=== PATIENT | female | born 1950 | race American Indian/Alaskan Native ===

== ENCOUNTER 2018-09-03 08:04 | Day surgery (SDC) | payer MEDICARE, OTHER ==
[2018-08-28 18:02] VITALS: BMI 21.4
[~2018-09-03 08:04] MED LIST: BUPIVACAINE (PF) 0.75% 5 ML, HYALURONIDASE, HUMAN RECOMB 150 UNIT, LIDOCAINE 2% (PF) 10... MISCELLANE ONE; LACTATED RINGERS 1,000 ML IV SCH; LIDOCAINE 1% 20 ML VIAL (10MG/ML) FOR IV START INTRADERMA PRN; TOBRA-DEXAMET 0.3-0.1% OPHTH OINT 3.5 GM TUBE OPHTHALMIC ONE
[2018-09-03] MEDS: CYCLOPENTOLATE 1% OPHTH SOLN 2 ML BTL OP ONE ×3 (08:56→09:14)
[2018-09-03] MEDS: KETOROLAC 0.5% OPHTH DROPS 5 ML BTL OP ONE ×4 (08:58→09:16)
[2018-09-03] MEDS: PHENYLEPHRINE 10% OPHTH DROPS 5 ML BTL OP ONE ×3 (09:00→09:18)
[2018-09-03 09:02] VITALS: RESP 16; TEMP 97.3
[2018-09-03] MEDS ORDERED: PROPOFOL 10 MG/ML 20 ML VIAL IV ONE (09:57)
[2018-09-03] MEDS ORDERED: BALANCED SALT IRRIG SOLN COMB2 15 ML IRRIG.SOLN INTRAOCULA ONE (10:11)
[2018-09-03] MEDS ORDERED: HYALURONATE SODIUM INTRAOCULAR 1 EACH SYRINGE (10MG/ML) INTRAOCULA ONE (10:11)
[2018-09-03] MEDS ORDERED: TRYPAN BLUE 0.06% SYRINGE 0.5 ML SYRINGE INTRAOCULA ONE (10:11)
[2018-09-03] MEDS ORDERED: EPINEPHrine (PF) 0.5 ML in BALANCED SALT IRRIG SOLN COMB2 500 ML IRRIGATION ONE (10:16)
--- NOTE | 2018-09-03 10:26 | P.OP ---
Date of Procedure: 09/03/18 Procedure(s) Performed: PREOPERATIVE DIAGNOSIS: Hypermature cataract, left eye. POSTOPERATIVE DIAGNOSIS: Hypermature cataract, left eye. OPERATION: Phacoemulsification of cataract, intraocular lens placement, left eye. DESCRIPTION OF PROCEDURE: The patient was taken to the operating room. Intravenous Propofol was given so as to bring about sedation. The following mixture was given for local anesthesia: 5 mL of 2% lidocaine, 5 mL of 0.75% Marcaine, and 1 mL of Wydase. Approximately 4 mL was injected in the retrobulbar space of the surgical eye. Additional 1 mL was then directed to the temporal area of the surgical eye. This was performed to allow adequate neurological block of the facial muscles. The patient was revived. The patient was prepped and draped in the usual sterile manner for the operative eye. A lid speculum was put into position. The conjunctiva was resected back from the limbus in the 12 o'clock position. Bleeding was controlled with electrocautery. A #69 blade was then used and a half-thickness scleral incision approximately 1-mm posterior to the limbus was made on bare sclera. This was shelved in the clear cornea using a crescent knife. Next a 15-degree blade was used to make a stab incision at the 3 o'clock position at the corneolimbal interface. A keratome blade was then used and the superior wound was extended into the anterior chamber. An air bubble was injected into the anterior chamber thru the sideport incision. Trypan Blue dye was then dripped on to the anterior lens capsule in order to visualize it. Viscoelastic was injected into the anterior chamber to maintain its form. A cystotome was used and a continuous anterior capsulotomy was made. Hydrodissection of the lens cortex using a blunt cannula and BSS was performed. A phaco probe was then introduced and a groove extending from 12 to 6 o'clock in the lens was created. A Terry wand was used through the stab incision and used to perform a divide and conquer dismantling of the cataract. An irrigation aspiration probe was utilized and any residual cortex was removed from the eye. Again, viscoelastic was injected into the anterior chamber. An [] posterior chamber lens implant was placed in a delivery cartridge and injected into the anterior chamber. A Sinskey hook was utilized to spin the lens into position within the capsular bag. The irrigation and aspiration probe was again introduced and any residual viscoelastic was removed from the eye. BSS was injected via blunt canula into the limbal stab incision and the anterior chamber was re-inflated. The conjunctiva was reapproximated using electrocautery. One drop of 0.25% Timoptic was placed over the corneal along with an antibiotic ophthalmic ointment. Two sterile patches and a Maguire eye shield were taped into position. The patient was transported to the recovery room in stable condition. Pathology: none sent Condition: stable Disposition: same day
[2018-09-03 10:53] VITALS: BP 139/84; PULSE 78
[2018-09-03] MEDS ORDERED: GENTAMICIN/PREDNISOL AC OPHTH OINT 3.5GM OPHTHALMIC ONE (23:00)
[2018-09-03] MEDS ORDERED: TIMOLOL 0.5% OPHTH DROPS 5 ML BTL OP ONE (23:00)
== END 2018-09-03 10:59 | disposition home or self-care (01) ==
LOC: OR 08:04
PROVIDERS: ATTEND Ophthalmology
DX: H25.22 Age-related cataract, morgagnian type, left eye (principal); I10 Essential (primary) hypertension; J44.9 Chronic obstructive pulmonary disease, unspecified; F17.210 Nicotine dependence, cigarettes, uncomplicated; Z79.82 Long term (current) use of aspirin; Z79.899 Other long term (current) drug therapy
CPT/HCPCS: 66984; V2632; J3470; J2001; J0171; J2704

== ENCOUNTER → 2019-01-14 | Outpatient (CLI) | payer MEDICARE, OTHER ==
--- NOTE | 2019-01-14 23:58 | MR ---
EXAMINATION TYPE: MR foot LT wo/w con DATE OF EXAM: 01/14/2019 COMPARISON: None HISTORY: Left foot lump on ant/mid foot CONTRAST: Standard multiplanar, multisequence MRI departmental protocol utilizing 6.5 mL intravenous Gadavist g adolinium contrast. FINDINGS: There is an elongated subcutaneous mass at the anterior aspect of the midfoot. This measure s 2.8 x 0.9X 3.0 cm. The mass has signal equal to subcutaneous fat. Mass appears superficial to the e xtensor tendons of the foot. The metatarsals are intact without evidence of a fracture. There is subcutaneous edema in the forefoo t around the distal metatarsals. Contrast images show no pathologic enhancement. The medial and lateral flexor tendons of the foot appear intact. Tarsal bones appear intact. Joint sp aces are fairly normal. Plantar fascia appears intact. IMPRESSION: Sharply marginated oval shaped subcutaneous mass over the anterior mid foot has features of a lipoma. Mild subcutaneous edema over the forefoot. No fracture seen.
== END | disposition home or self-care (01) ==
LOC: RADMRIMAIN 08:04
PROVIDERS: ATTEND Podiatrist Foot & Ankle Surgery
DX: M79.9 Soft tissue disorder, unspecified (principal)
CPT/HCPCS: 73720; A9585

== ENCOUNTER → 2020-08-25 | Outpatient (CLI) | payer MEDICARE, OTHER ==
--- NOTE | 2020-08-26 10:10 | MM ---
Reason for exam: screening (asymptomatic). Last mammogram was performed 1 year and 3 months ago. History: Patient is postmenopausal. Physical Findings: A clinical breast exam by your physician is recommended on an annual basis and results should be correlated with mammographic findings. MG Screening Mammo w CAD Bilateral CC and MLO view(s) were taken. Prior study comparison: May 27, 2019, mammogram, performed at [facility]. March 15, 2015, mammogram, performed at [facility]. The breast tissue is heterogeneously dense. This may lower the sensitivity of mammography. Nodule upper outer right breast zone B. ASSESSMENT: Incomplete: need additional imaging evaluation, BI-RAD 0 RECOMMENDATION: Special view mammogram and ultrasound of the right breast. [facility] will attempt to contact patient to return for supplemental views and ultrasound.
== END | disposition home or self-care (01) ==
LOC: RADMAMWWP 07:51
PROVIDERS: ATTEND Internal Medicine
DX: Z12.31 Encounter for screening mammogram for malignant neoplasm of breast (principal); Z78.0 Asymptomatic menopausal state
CPT/HCPCS: 77067

== ENCOUNTER → 2020-09-08 | Outpatient (CLI) | payer MEDICARE, OTHER ==
--- NOTE | 2020-09-08 13:08 | MM ---
Reason for exam: additional evaluation requested from abnormal screening. Last mammogram was performed less than 1 month ago. History: Patient is postmenopausal. Physical Findings: Nurse did not find any significant physical abnormalities on exam. MG 3D Work Up W/Cad RT Spot compression CC, spot compression MLO, and LM view(s) were taken of the right breast. Prior study comparison: August 25, 2020, bilateral MG screening mammo w CAD. May 27, 2019, mammogram, performed at [facility]. The breast tissue is heterogeneously dense. This may lower the sensitivity of mammography. Right breast stable nodule 8 o'clock zone B. These results were verbally communicated with the patient and result sheet given to the patient on 09/08/20. ASSESSMENT: Benign, BI-RAD 2 RECOMMENDATION: Return to routine screening mammogram schedule for both breasts.
== END | disposition home or self-care (01) ==
LOC: RADMAMWWP 07:43
PROVIDERS: ATTEND Internal Medicine
DX: N63.10 Unspecified lump in the right breast, unspecified quadrant (principal); Z78.0 Asymptomatic menopausal state
CPT/HCPCS: 77065; G0279; 77061

== ENCOUNTER → 2021-09-23 | Outpatient (CLI) | payer MEDICARE, OTHER ==
--- NOTE | 2021-09-23 16:01 | BD ---
EXAMINATION TYPE: Axial Bone Density DATE OF EXAM: 09/23/2021 COMPARISON: NONE CLINICAL HISTORY: 71 years year old Female. ICD-10 CODE: N95.1 Post menopuasal symptoms Height: 65.2 IN Weight: 151 LBS FRAX RISK QUESTIONS: Current Tobacco Use: YES RISK FACTORS HISTORY OF: Active: LIMITED DUE TO BRONCHITIS Diet low in dairy products/other sources of calcium: YES Postmenopausal woman: AGE 49 MEDICATIONS: Additional Medications: BLOOD PRESSURE MEDS, LOW DOSE ASPIRIN,METFORMIN EXAM MEASUREMENTS: Bone mineral densitometry was performed using the [employer] System. Bone mineral density as measured about the Lumbar spine is: ----- L1-L4(G/cm2): 1.201 T Score Values are as follows: ----- L1: -1.2 ----- L2: -1.4 ----- L3: 1.2 ----- L4: 1.6 ----- L1-L4: 0.2 Bone mineral density BASELINE Bone mineral density about the R hip (g/cm2): 0.798 Bone mineral density about the L hip (g/cm2): 0.709 T Score values are as follows: -----R Neck: -1.7 -----L Neck: -2.4 -----R Total: -2.2 -----L Total: -2.6 Bone mineral density BASELINE FRAX%s: The graph provided illustrates a 6.9 chance for a major osteoporotic fx and a 3.7 chance for the hips probability for fx in 10 years time. IMPRESSION: Osteoporosis (T Score less than -2.5). There is increased fracture risk and therapy is usually indicated based on age. Re-Screen 1-2 years. NOTE: T-SCORE=SD OF THE YOUNG ADULT MEAN.
--- NOTE | 2021-09-26 08:44 | MM ---
Reason for Exam: Screening (asymptomatic). Last mammogram was performed 1 year(s) and 1 month(s) ago. Patient History: Menarche at age 12. Postmenopausal. Risk Values: Trish 5 year model risk: 1.3%. NCI Lifetime model risk: 3.3%. Prior Study Comparison: 05/27/2019 Screening Mammogram, [facility]. 08/25/2020 Bilateral Screening Mammogram, [facility]. 09/08/2020 Right Diagnostic Mammogram, [facility]. Tissue Density: The breast tissue is heterogeneously dense. This may lower the sensitivity of mammography. Findings: Analyzed By CAD. Asymmetric nodular density upper outer left breast zone B. Additional views are recommended. Suspicious calcifications or masses right breast. Overall Assessment: Incomplete: need additional imaging evaluation, BI-RAD 0 Management: Diagnostic Mammogram of the left breast. A clinical breast exam by your physician is recommended on an annual basis and results should be correlated with mammographic findings. Electronically signed and approved by: Nigel Russell M.D. Radiologis
== END | disposition home or self-care (01) ==
LOC: RADBDWWP 12:27
PROVIDERS: ATTEND Internal Medicine
DX: Z12.31 Encounter for screening mammogram for malignant neoplasm of breast (principal); M81.0 Age-related osteoporosis without current pathological fracture; Z78.0 Asymptomatic menopausal state
CPT/HCPCS: 77063; 77067; 77080

== ENCOUNTER → 2021-10-03 | Outpatient (CLI) | payer MEDICARE, OTHER ==
--- NOTE | 2021-10-03 10:31 | MM ---
Reason for Exam: Additional evaluation requested from abnormal screening. Last screening mammogram was performed less than 1 month ago. Patient History: Menarche at age 12. Postmenopausal. Risk Values: Trish 5 year model risk: 1.3%. NCI Lifetime model risk: 3.3%. Prior Study Comparison: 08/25/2020 Bilateral Screening Mammogram, [facility]. 09/08/2020 Right Diagnostic Mammogram, [facility]. 09/23/2021 Bilateral MG 3D screening mammo w/cad, [facility]. Tissue Density: Left: The breast tissue is heterogeneously dense. This may lower the sensitivity of mammography. Findings: Analyzed By CAD. Under compression no suspicious distortion spiculated or lobular mass is evident. No suspicious calcifications are evident. Overall Assessment: Benign, BI-RAD 2 Management: Screening Mammogram of both breasts in 1 year. A clinical breast exam by your physician is recommended on an annual basis and results should be correlated with mammographic findings. This exam should not preclude additional follow-up of suspicious palpable abnormalities. Results were given to the patient verbally at the time of exam. Patient should continue monthly self breast examination. Electronically signed and approved by: Zack Hernandez D.O. Radiologis
== END | disposition home or self-care (01) ==
LOC: RADMAMWWP 07:58
PROVIDERS: ATTEND Internal Medicine
DX: R92.8 Other abnormal and inconclusive findings on diagnostic imaging of breast (principal); Z78.0 Asymptomatic menopausal state
CPT/HCPCS: 77065; G0279; 77061

== ENCOUNTER → 2022-07-10 | Outpatient (CLI) | payer MEDICARE, OTHER ==
--- NOTE | 2022-07-10 10:51 | CT ---
EXAMINATION TYPE: CT chest wo con DATE OF EXAM: 07/10/2022 COMPARISON: Chest x-ray June 09, 2022 HISTORY: cough CT DLP: 374 mGycm. Automated Exposure Control for Dose Reduction was Utilized. TECHNIQUE: CT scan of the thorax is performed without IV contrast. FINDINGS: LUNGS: Mild underlying emphysematous change is present. There is mild to moderate left mid to lower l rey linear scarring and mild right basilar linear scarring. Slightly more prominent thickened consoli dation favors scarring and/or atelectasis but is a little more nodular for reference posterior left l rey base on axial image 47 measuring 1.3 x 0.9 cm. No pleural effusion or pneumothorax is seen bilate rally. MEDIASTINUM: Lack of IV contrast is noted to limit evaluation for mediastinal and especially hilar ad enopathy. Prominent but subcentimeter pericarinal lymph node axial image 28. No cardiomegaly or per icardial effusion is seen. Ascending aorta measures up to 4.0 cm in diameter. OTHER: Slight scoliotic curvature. Exaggerated thoracic kyphosis with multilevel spurring. IMPRESSION: Mild emphysematous change with [id number] left mid to lower lung parenchymal scarri ng still present. No suspicious acute pulmonary process. Advise short term CT or PET CT follow-up to document stability of nodular scarring if no outside CT is available for direct correlation.
== END | disposition home or self-care (01) ==
LOC: RADCTMAIN 09:06
PROVIDERS: ATTEND Internal Medicine
DX: J43.9 Emphysema, unspecified (principal); J98.4 Other disorders of lung; R19.8 Other specified symptoms and signs involving the digestive system and abdomen
CPT/HCPCS: 71250

== ENCOUNTER → 2024-03-05 | Outpatient (CLI) | payer MEDICARE, OTHER ==
--- NOTE | 2024-03-05 13:17 | BD ---
EXAMINATION TYPE: Axial Bone Density DATE OF EXAM: 03/05/2024 CLINICAL HISTORY: 73 years old Female. ICD-10 CODE: N951 POST CHEPE SYMPTOMS, [id number] OTHER DISORDER OF BONE DENSIT , Additional History: Height: 65.25 Weight: 146 FRAX RISK QUESTIONS: Alcohol (3 or more units per day): no Family History (Parent hip fracture): no Glucocorticoids (More than 3mos): inhaler twice a day (Ex: prednisone, prednisolone, methylprednisolone, dexamethasone, and hydrocortisone). History of Fracture in Adulthood: yes Secondary Osteoporosis: 1. Type 1 Diabetes: no 2. Hyperthyroidism: no 3. Menopause before 45: no 4. Malnutrition: no 5. Chronic liver disease: no Rheumatoid Arthritis: no Current Tobacco Use: yes RISK FACTORS HISTORY OF: Hip Fracture (Right/Left): no Spine Fracture: no History of Wrist Fracture: RT When: adult Surgery to Spine/Hip(right/left)/Wrist (right/left): no MEDICATIONS: Thyroid Medications:no Osteoporosis Medications: no EXAM MEASUREMENTS: Bone mineral densitometry was performed using the [employer] System. Bone mineral density as measured about the Lumbar spine is: ----- L1-L4(G/cm2): 1.131 T Score Values are as follows: ----- L1: -1.8 ----- L2: -1.5 ----- L3: 0.2 ----- L4: 0.8 ----- L1-L4: -0.4 Z Score Values are as follows: ----- L1: -0.1 ----- L2: 0.2 ----- L3: 1.9 ----- L4: 2.5 ----- L1-L4: 1.3 Bone mineral density has: decreased -5.8 % since study of: 09/23/2021 Bone mineral density about the R hip (g/cm2): 0.703 Bone mineral density about the L hip (g/cm2): 0.650 T Score values are as follows: -----R Neck: -1.8 -----L Neck: -2.7 -----R Total: -2.4 -----L Total: -2.8 Z Score values are as follows: -----R Neck: 0.1 -----L Neck: -0.8 -----R Total: -0.7 -----L Total: -1.2 Bone mineral density has: decreased -3.8 % since study of: 09/23/2021 FRAX%s: The graph provided illustrates a 29.1 % chance for a major osteoporotic fx and a 14.0% chance for the hips probability for fx in 10 years time. IMPRESSION: Osteoporosis (T Score less than -2.5). There is increased fracture risk and therapy is usually indicated based on age. Re-Screen 1-2 years. NOTE: T-SCORE=SD OF THE YOUNG ADULT MEAN. [facility], , 03/05/2024 1:15 PM
--- NOTE | 2024-03-07 10:36 | MM ---
Reason for Exam: Screening (asymptomatic). Last mammogram was performed 2 year(s) and 5 month(s) ago. Patient History: Menarche at age 12. First Full-Term at age 21. Postmenopausal. Risk Values: Trish 5 year model risk: 1.6%. NCI Lifetime model risk: 3.7%. Prior Study Comparison: 09/08/2020 Right Diagnostic Mammogram, [facility]. 09/23/2021 Bilateral MG 3D screening mammo w/cad, [facility]. 10/03/2021 Left MG 3D work up w/cad LT, [facility]. Tissue Density: The breasts are heterogeneously dense, which may obscure small masses. Findings: Analyzed By CAD. Right breast: There is no suspicious group of microcalcifications or new suspicious mass. Left breast: There is no suspicious group of microcalcifications or new suspicious mass. Overall Assessment: Negative, BI-RAD 1 Management: Screening Mammogram of both breasts in [address] [facility] will attempt to contact patient to return for supplemental views and ultrasound if indicated. Patient should continue monthly self-breast exams. A clinical breast exam by your physician is recommended on an annual basis. This exam should not preclude additional follow-up of suspicious palpable abnormalities. Note on Trish scores and lifetime risk: 1. A Trish score greater than 3% is considered moderate risk. If this is the case, consider specialist referral to assess eligibility for a risk reducing agent. 2. If overall lifetime risk for the development of breast cancer is 20% or higher, the patient may qualify for future screening with alternating mammogram and breast MRI. [facility], , 03/07/2024 10:33 AM. Electronically signed and approved by: Damion Chase DO
== END | disposition home or self-care (01) ==
LOC: RADMAMWWP 10:50
PROVIDERS: ATTEND Internal Medicine
DX: Z12.31 Encounter for screening mammogram for malignant neoplasm of breast (principal); Z78.0 Asymptomatic menopausal state; R92.333 Mammographic heterogeneous density, bilateral breasts; M85.88 Other specified disorders of bone density and structure, other site; M81.8 Other osteoporosis without current pathological fracture
CPT/HCPCS: 77063; 77067; 77080

== ENCOUNTER 2024-03-11 14:10 | Inpatient (IN) | payer MEDICARE, OTHER ==
[2024-03-11 14:26] LABS: Glucose,Whole Blood 132 mg/dL (70-110)
--- NOTE | 2024-03-11 15:01 | ED ---
General Adult HPI - General Chief complaint: Neuro Symptoms/Deficit Stated complaint: POSS STROKE Time Seen by Provider: 03/11/24 14:33 Source: patient Mode of arrival: ambulatory Limitations: no limitations - History of Present Illness Initial comments: This patient is a 73-year-old woman who presents to have evaluation for what she states is stuttering. The patient states that she was feeling like her usual self last night. She states when she woke up this morning, around 7am, she was stuttering. Patient states that her son was not understanding her speech. They went to see Dr. Benedict who commended she go to the emergency department to be se en about possibility of stroke. Patient denies headache. No change in sensation. She denies any focal weakness. Onset/Timin -: hour(s) Severity scale (1-10): 0 Consistency: constant Improves with: none Worsens with: none Associated Symptoms: denies other symptoms Treatments Prior to Arrival: none - Related Data Home Medications Medication Instructions Recorded Confirmed Albuterol Inhaler [Ventolin Hfa 2 puff INHALATION RT-Q4H PRN 08/28/18 03/11/24 Inhaler] Losartan Potassium 100 mg PO DAILY 03/11/24 03/11/24 Pravastatin Sodium [Pravachol] 40 mg PO DAILY 03/11/24 03/11/24 metFORMIN HCL 500 mg PO BID 03/11/24 03/11/24 Allergies Allergy/AdvReac Type Severity Reaction Status Date / Time No Known Allergies Allergy Verified 03/11/24 14:59 Review of Systems ROS Statement: Those systems with pertinent positive or pertinent negative responses have been documented in the HPI. ROS Other: All systems not noted in ROS Statement are negative. Constitutional: Denies: fever, chills, weakness Eyes: Denies: vision change ENT: Denies: throat pain, congestion Respiratory: Denies: cough, dyspnea, wheezes Cardiovascular: Denies: chest pain, palpitations, edema Gastrointestinal: Denies: abdominal pain, nausea, vomiting, diarrhea Genitourinary: Denies: dysuria, hematuria Musculoskeletal: Denies: back pain Skin: Denies: rash Neurological: Reports: other. Denies: headache, weakness, numbness Past Medical History Past Medical History: COPD, Hypertension Additional Past Medical History / Comment(s): diego cataracts History of Any Multi-Drug Resistant Organisms: None Reported Past Surgical History: No Surgical Hx Reported Past Anesthesia/Blood Transfusion Reactions: No Reported Reaction Past Psychological History: No Psychological Hx Reported Past Alcohol Use History: None Reported Past Drug Use History: None Reported - Past Family History Sister(s) Family Medical History: Cancer Additional Family Medical History / Comment(s): lung General Exam Limitations: no limitations General appearance: alert, in no apparent distress Head exam: Present: atraumatic, normocephalic Eye exam: Present: normal appearance. Absent: scleral icterus, conjunctival injection ENT exam: Present: mucous membranes dry Neck exam: Present: normal inspection, full ROM Respiratory exam: Present: wheezes. Absent: respiratory distress, rales, rhonchi, stridor, accessory muscle use Cardiovascular Exam: Present: regular rate, normal rhythm, normal heart sounds. Absent: systolic murmur, diastolic murmur, rubs, gallop GI/Abdominal exam: Present: soft. Absent: distended, tenderness, guarding, rebound, rigid, mass Extremities exam: Present: normal inspection, normal capillary refill. Absent: pedal edema, calf tenderness Back exam: Present: normal inspection Neurological exam: Present: alert, oriented X3, CN II-XII intact, other (The patient does have some mild dysarthria but oral cavity very dry.). Absent: motor sensory deficit Skin exam: Present: warm, dry, intact, normal color. Absent: rash Course Vital Signs 03/11/24 03/11/24 03/11/24 14:14 14:32 16:00 Temperature 97.6 F Pulse Rate 98 102 H 93 Pulse Rate [ Cancer Spec ] Respiratory 18 H 24 Rate Blood Pressure 157/91 161/105 136/88 Blood Pressure [Right Arm] O2 Sat by Pulse 73 L 93 L 89 L Oximetry 03/11/24 03/11/24 03/11/24 18:36 19:06 20:47 Temperature 97.9 F Pulse Rate 96 93 Pulse Rate [ Cancer Spec ] Respiratory 24 28 H 18 Rate Blood Pressure 131/83 133/80 Blood Pressure [Right Arm] O2 Sat by Pulse 90 L 90 L 95 Oximetry 03/11/24 03/11/24 03/12/24 20:59 22:34 02:37 Temperature Pulse Rate 94 102 H 95 Pulse Rate [ Cancer Spec ] Respiratory 18 20 18 Rate Blood Pressure 122/71 118/68 106/57 Blood Pressure [Right Arm] O2 Sat by Pulse 94 L 93 L 95 Oximetry 03/12/24 03/12/24 03/12/24 05:02 07:03 08:30 Temperature 97.8 F Pulse Rate 96 100 Pulse Rate [ 93 Cancer Spec ] Respiratory 18 18 20 Rate Blood Pressure 100/59 99/54 Blood Pressure 106/54 [Right Arm] O2 Sat by Pulse 95 97 98 Oximetry 03/12/24 03/12/24 12:30 13:44 Temperature 98.1 F Pulse Rate Pulse Rate [ 99 102 H Cancer Spec ] Respiratory 18 18 Rate Blood Pressure Blood Pressure 117/68 122/71 [Right Arm] O2 Sat by Pulse 95 98 Oximetry EKG Findings - EKG Results: EKG: interpreted by ERMD, sinus rhythm (Rate 93 bpm), normal axis - MD, Pacemaker, Normal: Myocardial infarction: septal MD (old age or indeterminate) (Possible old septal infarct based on Q waves V1 andV2) Medical Decision Making - Medical Decision Making The patient had chest x-ray that I interpreted as negative for acute infiltrate or pneumothorax. Possible vascular congestion. Was pt. sent in by a medical professional or institution (, PA, DINING ROOM HOST, urgent care, hospital, or long-term...) When possible be specific @ -[No] Did you speak to anyone other than the patient for history (EMS, parent, family, police, friend...)? What history was obtained from this source @ -[No] Did you review nursing and triage notes (agree or disagree)? Why? @ -[I reviewed and agree with nursing and triage notes] Were old charts reviewed (outside hosp., previous admission, EMS record, old EKG, old radiological studies, urgent care reports/EKG's, long-term records)? Report findings @ -[No old charts were reviewed] Differential Diagnosis (chest pain, altered mental status, abdominal pain women, abdominal pain men, vaginal bleeding, weakness, fever, dyspnea, syncope, headache, dizziness, GI bleed, back pain, seizure, CVA, palpatations, mental health, musculoskeletal)? @ -[Differential CVA Ischemic stroke, hemorrhagic stroke, brain tumor, atypical migraine, Wernicke's encephalopathy, seizure, multiple sclerosis, meningitis, encephalitis, hypoglycemia, Guillain-Barrett, electrolytes disturbance, myasthenia gravis.... This is not meant to be an all-inclusive list EKG interpreted by me (3pts min.). @ -[I interpreted as above] X-rays interpreted by me (1pt min.). @ -[I interpreted as above CT interpreted by me (1pt min.). @ -[None done] U/S interpreted by me (1pt. min.). @ -[None done] What testing was considered but not performed or refused? (CT, X-rays, U/S, labs)? Why? @ -[None] What meds were considered but not given or refused? Why? @ -[Thrombolytic treatment was considered but patient is well outside of the treatment window and risks outweigh benefits at this point. Did you discuss the management of the patient with other professionals (professionals i.e. , PA, DINING ROOM HOST, lab, RT, psych nurse, health social work professor, information systems security manager, teacher, us customs and border officer, case checker)? Give summary @ -[Case discussed with the stroke network and patient will be admitted for medical management as patient is outside the window for thrombolytics. Case discussed with admitting physician and treatment recommendations incorporated Was smoking cessation discussed for >3mins.? @ -[No] Was critical care preformed (if so, how long)? @ -[Yes, 35 minutes Were there social determinants of health that impacted care today? How? (Homelessness, low income, unemployed, alcoholism, drug addiction, tra nsportation, low edu. Level, literacy, decrease access to med. care, fci, rehab)? @ -[Smoking Was there de-escalation of care discussed even if they declined (Discuss DNR or withdrawal of care, Hospice)? DNR status @ -[No] What co-morbidities impacted this encounter? (DM, HTN, Smoking, COPD, CAD, Cancer, CVA, ARF, Chemo, Hep., AIDS, mental health diagnosis, sleep apnea, morbid obesity)? @ -[Hypertension, COPD Was patient admitted / discharged? Hospital course, mention meds given and route, prescriptions, significant lab abnormalities, going to OR and other pertinent info. @ -[Patient is 73-year-old woman who presents with alteration of speech from her baseline. She was outside of the window for thrombolytic treatment. The patient CT scan does show suspected ischemic stroke and patient will be admitted to have further neurology evaluation and treatment. Undiagnosed new problem with uncertain prognosis? @ -[No] Drug Therapy requiring intensive monitoring for toxicity (Heparin, Nitro, Insulin, Cardizem)? @ -[No] Were any procedures done? @ -[No] Diagnosis/symptom? @ -[Acute ischemic stroke Elevated troponin CHF exacerbation Acute, or Chronic, or Acute on Chronic? @ -[Acute Uncomplicated (without systemic symptoms) or Complicated (systemic symptoms)? @ -[Complicated by partial dysphasia Side effects of treatment? @ -[No] Exacerbation, Progression, or Severe Exacerbation? @ -[No] Poses a threat to life or bodily function? How? (Chest pain, USA, MD, pneumonia, PE, COPD, DKA, ARF, appy, cholecystitis, CVA, Diverticulitis, Homicidal, Suicidal, threat to staff... and all critical care pts) @ -[Yes - Lab Data Result diagrams: 03/24/24 06:56 03/24/24 06:56 Lab Results 03/11/24 03/11/24 03/11/24 Range/Units 14:24 14:47 14:47 WBC 5.7 (3.8-10.6) k/uL RBC 5.80 H (3.80-5.40) m/uL Hgb 15.4 (11.4-16.0) gm/dL Hct 51.6 H (34.0-46.0) % MCV 88.8 (80.0-100.0) fL MCH 26.6 (25.0-35.0) pg MCHC 30.0 L (31.0-37.0) g/dL RDW 14.9 (11.5-15.5) % Plt Count 261 (150-450) k/uL MPV 7.3 Neutrophils % (Manual) 78 % Band Neuts % (Manual) 1 % Lymphocytes % (Manual) 13 % Monocytes % (Manual) 7 % Eosinophils % (Manual) 1 % Neutrophils # (Manual) 4.50 (1.3-7.7) k/uL Lymphocytes # (Manual) 0.74 L (1.0-4.8) k/uL Monocytes # (Manual) 0.40 (0-1.0) k/uL Eosinophils # (Manual) 0.06 (0-0.7) k/uL Nucleated RBCs 0 (0-0) /100 WBC Manual Slide Review Performed Hypochromasia Marked PT 10.8 (10.0-12.5) sec INR 1.0 (<1.2) APTT 22.9 (22.0-30.0) sec Sodium (137-145) mmol/L Potassium (3.5-5.1) mmol/L Chloride (98-107) mmol/L Carbon Dioxide (22-30) mmol/L Anion Gap mmol/L BUN (7-17) mg/dL Creatinine (0.52-1.04) mg/dL Est GFR (CKD-EPI)AfAm (>60 ml/min/1.73 sqM) Est GFR (CKD-EPI)NonAf (>60 ml/min/1.73 sqM) Glucose (74-99) mg/dL POC Glucose (mg/dL) 132 H (70-110) mg/dL POC Glu [employer] Supervisor ID Evans Freddie Calcium (8.4-10.2) mg/dL Total Bilirubin (0.2-1.3) mg/dL AST (14-36) U/L ALT (4-34) U/L Alkaline Phosphatase (38-126) U/L Creatine Kinase (30-135) U/L Troponin I (0.000-0.034) ng/mL NT-Pro-B Natriuret Pep pg/mL Total Protein (6.3-8.2) g/dL Albumin (3.5-5.0) g/dL 03/11/24 03/11/24 03/11/24 Range/Units 14:47 14:47 14:47 WBC (3.8-10.6) k/uL RBC (3.80-5.40) m/uL Hgb (11.4-16.0) gm/dL Hct (34.0-46.0) % MCV (80.0-100.0) fL MCH (25.0-35.0) pg MCHC (31.0-37.0) g/dL RDW (11.5-15.5) % Plt Count (150-450) k/uL MPV Neutrophils % (Manual) % Band Neuts % (Manual) % Lymphocytes % (Manual) % Monocytes % (Manual) % Eosinophils % (Manual) % Neutrophils # (Manual) (1.3-7.7) k/uL Lymphocytes # (Manual) (1.0-4.8) k/uL Monocytes # (Manual) (0-1.0) k/uL Eosinophils # (Manual) (0-0.7) k/uL Nucleated RBCs (0-0) /100 WBC Manual Slide Review Hypochromasia PT (10.0-12.5) sec INR (<1.2) APTT (22.0-30.0) sec Sodium 137 (137-145) mmol/L Potassium 4.9 (3.5-5.1) mmol/L Chloride 98 (98-107) mmol/L Carbon Dioxide 37 H (22-30) mmol/L Anion Gap 2 mmol/L BUN 14 (7-17) mg/dL Creatinine 0.56 (0.52-1.04) mg/dL Est GFR (CKD-EPI)AfAm >90 (>60 ml/min/1.73 sqM) Est GFR (CKD-EPI)NonAf >90 (>60 ml/min/1.73 sqM) Glucose 139 H (74-99) mg/dL POC Glucose (mg/dL) (70-110) mg/dL POC Glu [employer] Supervisor ID Calcium 8.5 (8.4-10.2) mg/dL Total Bilirubin 0.6 (0.2-1.3) mg/dL AST 32 (14-36) U/L ALT 19 (4-34) U/L Alkaline Phosphatase 76 (38-126) U/L Creatine Kinase 106 (30-135) U/L Troponin I 0.379 H* (0.000-0.034) ng/mL NT-Pro-B Natriuret Pep 6490 pg/mL Total Protein 7.0 (6.3-8.2) g/dL Albumin 3.9 (3.5-5.0) g/dL Disposition Clinical Impression: Acute ischemic stroke, CHF exacerbation, Elevated troponin I level Disposition: ADMITTED IP TO THIS HOSP Condition: Serious Is patient prescribed a controlled substance at d/c from ED?: No
[2024-03-11] MEDS: SODIUM CHLORIDE 0.9% 500 ML 500 ML IV STA (15:09)
--- NOTE | 2024-03-11 15:14 | CT ---
EXAMINATION TYPE: CODE STROKE: CT brain wo contr DATE OF EXAM: 03/11/2024 3:03 PM COMPARISON: None. CLINICAL INDICATION: Female, 73 years old with history of Neuro deficit, acute, stroke suspected, TECHNIQUE: Brain: Axial CT images of the brain were obtained with coronal and sagittal reformats created and rev iewed. Contrast used: None. Oral contrast used: None. CT DLP: 1115 mGycm, Automated exposure control for dose reduction was used. FINDINGS: Brain: Extra-axial spaces: No abnormal extra-axial fluid collections. Ventricular system: Within normal limits Cerebral parenchyma: Loss of skelton-white matter junction in the right parietal region suggested on ser ies 202 image 29. There is thickened gyri with poor visualization of the sulci in this region Subcort ical white matter change series 202 image 32 also present. No acute intraparenchymal hemorrhage or ma ss effect. Cerebellum: Unremarkable. Mass effect: No evidence of midline shift. Intracranial vasculature: Atherosclerotic calcifications of the intracranial vessels. Soft tissues: Normal. Calvarium/osseous structures: No depressed skull fracture. Paranasal sinuses and mastoid air cells: Mild scattered paranasal sinus disease. Visualized orbits: Bilateral aphakia IMPRESSION: Right parietal lobe acute/subacute CVA suggested. Findings communicated to Dr. Shayan Lee MD on 03/11/2024 3:[address] Damion Chase. [facility], , 03/11/2024 3:12 PM
[2024-03-11 15:16] LABS: ALT 19 U/L (4-34); AST 32 U/L (14-36); African American GFR (CKD) >90 (>60 ml/min/1.73 sqM); Albumin 3.9 g/dL (3.5-5.0); Alkaline Phosphatase 76 U/L (38-126); Anion Gap 2 mmol/L; Blood Urea Nitrogen 14 mg/dL (7-17); Calcium 8.5 mg/dL (8.4-10.2); Carbon Dioxide 37 mmol/L (22-30); Chloride 98 mmol/L (98-107); Creatine Kinase 106 U/L (30-135); Glucose 139 mg/dL (74-99); Non-African American GFR(CKD) >90 (>60 ml/min/1.73 sqM); Potassium 4.9 mmol/L (3.5-5.1); Sodium 137 mmol/L (137-145); Total Bilirubin 0.6 mg/dL (0.2-1.3)
[2024-03-11 15:20] LABS: Partial Thromboplastin Time 22.9 sec (22.0-30.0); Prothrombin Time 10.8 sec (10.0-12.5)
--- NOTE | 2024-03-11 15:32 | XR ---
EXAMINATION TYPE: XR chest 2V DATE OF EXAM: 03/11/2024 3:26 PM COMPARISON: Chest radiographs from 06/09/2022 CLINICAL INDICATION: Female, 73 years old with history of altered mental status; [facility] TECHNIQUE: XR chest 2V Frontal and lateral views of the chest. FINDINGS: Lungs/Pleura: There is flattening of the diaphragm with increased lucency of the lungs. No evidence o f pneumothorax, pleural effusion or focal consolidation. Pulmonary vascularity: Pulmonary vascular congestion. Heart/mediastinum: Cardiomediastinal silhouette is enlarged and stable. Musculoskeletal: No acute osseous pathology. IMPRESSION: 1. Cardiomegaly with pulmonary vascular congestion correlate with serum BNP. 2. COPD changes. [facility], , 03/11/2024 3:29 PM
[2024-03-11 15:48] LABS: HCT 51.6 % (34.0-46.0); HGB 15.4 gm/dL (11.4-16.0); Hypochromasia Marked; MCH 26.6 pg (25.0-35.0); MCV 88.8 fL (80.0-100.0); Mean Platelet Volume 7.3; Platelet Count 261 k/uL (150-450); RDW 14.9 % (11.5-15.5); WBC 5.7 k/uL (3.8-10.6)
[2024-03-11 17:05] LABS: Band Neutrophils % 1 %; Eosinophils # (M) 0.06 k/uL (0-0.7); Lymphocytes # (M) 0.74 k/uL (1.0-4.8); Neutrophils % (M) 78 %; Nucleated Red Blood Cells 0 /100 WBC (0-0); Total Cells Counted 100
[2024-03-11] MEDS: ASPIRIN 325 MG TAB PO STA (17:36)
[2024-03-11] MEDS: SODIUM CHLORIDE 0.9% 1,000 ML IV SCH (17:36)
[2024-03-11] MEDS: FAMOTIDINE 20 MG/2 ML VIAL IV SCH (22:20)
--- NOTE | 2024-03-12 07:12 | P.CNNES ---
History of Present Illness Consult date: 03/12/24 Reason for Consult: Speech Abnormality- possible CVA Chief complaint: Related by family"she had slurred speech yesterday morning" History of Present Illness: Ms. Ponce is a 73-year-old female with history of hypertension, COPD, and bilateral cataracts. She was seen in [facility] on March 11 in the afternoon after she awoke at 7 AM in normal condition. Following this her family noted approximately 9 AM she began having some speech abnormalities where she was having some slurred speech and the family was unable to understand what she was saying. However it is unknown if she exhibited specific symptoms of aphasia. Family does not relate that she had any focal weakness but she was brought into the emergency room and is being admitted for possible stroke. A CT scan of her brain reveals evidence of possibly a right parietal acute to subacute stroke as well as a left sided infarct in the postcentral gyrus. It is unknown how acute both these injuries are at this time. She does take aspirin 325 mg daily at home as well as Pepcid. This morning she is quite somnolent and somewhat difficult to arouse. However she withdraws equally on all 4 extremities and appears to have no reflex abnormalities. I do not detect facial droop. Review of Systems When spoken to, the patient is somnolent and unable to communicate at this time. A review of systems was attempted but could not be performed, and the family noted that she was not complaining of any additional symptoms yesterday morning. Constitutional: Reports as per HPI Past Medical History Past Medical History: COPD, Hypertension Additional Past Medical History / Comment(s): diego cataracts History of Any Multi-Drug Resistant Organisms: None Reported Past Surgical History: No Surgical Hx Reported Past Anesthesia/Blood Transfusion Reactions: No Reported Reaction Past Psychological History: No Psychological Hx Reported Past Alcohol Use History: None Reported Past Drug Use History: None Reported - Past Family History Sister(s) Family Medical History: Cancer Additional Family Medical History / Comment(s): lung Medications and Allergies Home Medications Medication Instructions Recorded Confirmed Type Albuterol Inhaler [Ventolin Hfa 2 puff INHALATION RT-Q4H PRN 08/28/18 03/11/24 History Inhaler] Losartan Potassium 100 mg PO DAILY 03/11/24 03/11/24 History Pravastatin Sodium [Pravachol] 40 mg PO DAILY 03/11/24 03/11/24 History metFORMIN HCL 500 mg PO BID 03/11/24 03/11/24 History Allergies Allergy/AdvReac Type Severity Reaction Status Date / Time No Known Allergies Allergy Verified 03/11/24 14:59 Physical Examination - Vital Signs Vital Signs: Vital Signs Temp Pulse Resp BP Pulse Ox 03/12/24 05:02 96 18 100/59 95 03/12/24 02:37 95 18 106/57 95 03/11/24 22:34 102 H 20 118/68 93 L 03/11/24 20:59 94 18 122/71 94 L 03/11/24 20:47 93 18 133/80 95 03/11/24 19:06 28 H 90 L 03/11/24 18:36 97.9 F 96 24 131/83 90 L 03/11/24 16:00 93 24 136/88 89 L 03/11/24 14:32 102 H 26 H 161/105 93 L 03/11/24 14:14 97.6 F 98 18 157/91 73 L The patient is somnolent, and somewhat difficult to arouse. I could not get her to open her eyes to command or follow even simple commands. She did attempt to raise her arms when the informed but could not give me a "thumbs up" sign when she was asked to. - Constitutional General appearance: disheveled - EENT EENT: PERRL - Respiratory Respiratory: chest non-tender, lungs clear - Cardiovascular Cardiovascular: regular rate, no murmurs Extremities: no peripheral edema bilaterally, no clubbing, cyanosis - Gastrointestinal Gastrointestinal: normoactive bowel sounds, non-tender - Integumentary Integumentary: normal - Neurologic Cranial nerve examination: PERRL, face symmetric Speech examination: other (Speech could not be assessed, as pt. was very sleepy.) Detailed motor examination: grossly full strength in all extremities Detailed sensory examination: other (Pt. was able to withdraw to pain equally in all 4 extremities.) Reflex and gait examination: other (Reflexes were trace to 1+ but symmetric in all 4 extremities. I could not detect a Babinski sign that was positive.) Cerebellar examination: other (Cerebellar examination could not be attempted as patient was very drowsy and could not follow commands distinctly.) Results Noncontrast CT scan from March 11 revealed evidence of a an acute to subacute right parietal stroke, possibly in the watershed distribution, as well as an acute to subacute left postcentral gyrus infarct. No CT angiogram was performed at this time - Laboratory Findings CBC and BMP: 03/11/24 14:47 03/11/24 14:47 Abnormal Lab Findings: Abnormal Labs 03/11/24 03/11/24 03/11/24 14:24 14:47 14:47 RBC 5.80 H Hct 51.6 H MCHC 30.0 L Lymphocytes # (Manual) 0.74 L Carbon Dioxide 37 H Glucose 139 H POC Glucose (mg/dL) 132 H Troponin I 03/11/24 03/11/24 03/11/24 14:47 18:02 21:05 RBC Hct MCHC Lymphocytes # (Manual) Carbon Dioxide Glucose POC Glucose (mg/dL) Troponin I 0.379 H* 0.429 H* 0.436 H* Assessment and Plan Assessment: Ms. Srinivasan is a 73-year-old female with history of hypertension, COPD, and bilateral cataracts. She suffered an episode of slurred speech yesterday morning. When examined she was very sleepy but appeared grossly nonfocal. Because of the the CT scan she had yesterday reveals an acute to subacute right parietal stroke as well as left-sided stroke. This may be embolic in nature or perhaps due to watershed ischemia with bilateral carotid stenosis possibly. Plan: #1. I will order an MRI of the brain without contrast to assess for acute stroke. If positive, an echocardiogram should be ordered. 2. I will order a CT angiogram of the head and neck to assess her carotid vessels for evidence of stenosis. Number 3. A lipid panel has been ordered for her already and I will follow-up on this and prescribe antilipid medicine if necessary. 4. The patient will be admitted to the hospital and neurology will continue to follow her and make further recommendations as needed. Time with Patient: Greater than 30
[2024-03-12] MEDS: ASPIRIN 325 MG TAB PO SCH (08:26)
[2024-03-12 09:09] LABS: Chol/HDL Ratio 1.99 Ratio; LDL Cholesterol,Calculated 74.6 mg/dL (0.0-131.0)
--- NOTE | 2024-03-12 10:27 | CT ---
EXAMINATION TYPE: CT angio head neck CT DLP: 401.8 mGycm, Automated exposure control for dose reduction was used. DATE OF EXAM: 03/12/2024 10:17 AM COMPARISON: CT brain 03/11/2024, CT chest 06/18/2023. CLINICAL INDICATION:Female, 73 years old with history of speech deficit, CVA on CT Head.; PHH, Speech deficit, CVA on CT Head TECHNIQUE: Axially acquired helical CT angiogram of the head and neck was obtained with contrast util izing 75 cc of Isovue-370 administered intravenously. Axial images are supplemented with 3D reconstru ctions which were post-processed at an independent workstation. NASCET criteria used. FINDINGS: CTA HEAD: No evidence of acute intracranial hemorrhage, mass effect, or midline shift. The ventricles, sulci, a nd cisterns are unremarkable. The visualized portions of the internal carotid arteries, middle cerebral arteries, anterior cerebral arteries, and posterior cerebral arteries are patent. The basilar and vertebral arteries are patent. CTA NECK: Right Carotid System: The common carotid artery and external carotid artery are patent. Minimal calcified plaque within the right common carotid artery. Minimal calcified plaque at the carotid bifurcation. The carotid bifurc ation demonstrates no evidence of hemodynamically significant stenosis. The remaining portions of the internal carotid artery demonstrate normal size without significant narrowing. Left Carotid System: The common carotid artery and external carotid artery are patent. Minimal calcified plaque within the left common carotid artery. Mild calcified plaque at the carotid bifurcation. The carotid bifurcatio n demonstrates no evidence of hemodynamically significant stenosis. The remaining portions of the int ernal carotid artery demonstrate normal size without significant narrowing. Vertebral arteries are patent without evidence hemodynamically significant stenosis. There is a three-vessel aortic arch. The origins of the great vessels are patent. Mild atheroscleroti c calcification of the aorta arch and its branches. No evidence of hemodynamically significant stenos is. Partial visualization of bilateral pleural effusions. Large consolidative appearance of the visualize d left upper lobe. Scattered interlobular septal thickening within the right lung. Multilevel degener ative disc disease. Bilateral AC joint arthropathy. Bilateral aphakia. IMPRESSION: 1. No evidence of dissection of the cervical internal carotid arteries or vertebral arteries or any e vidence of significant stenosis at the carotid bifurcations. 2. No evidence of high-grade stenosis or intracranial aneurysm. 3. Development of left upper lobe pneumonia. 4. Partial visualization of bilateral pleural effusions with interlobular septal thickening suggestin g CHF exacerbation and/or fluid overload. [facility], , 03/12/2024 10:25 AM
--- NOTE | 2024-03-12 10:32 | P.HPIM ---
History of Present Illness H&P Date: 03/12/24 Mirtha Ponce is a 73-year-old female patient who initially presented to her PCP with complaints of slurring of speech patient was directed to come to ER for further evaluation. At this time patient is in bed sleeping not following commands or answering questions. Family at bedside history obtained through them and medical records. According to family patient was found to be having slurred speech patient did not want to come to ER at that time so was taken to PCP. Per family patient is a heavy smoker but denies any alcohol or drug use. Denies any recent illness. Additional medical history includes COPD, hypertension. Head CT completed showing right parietal lobe acute/subacute CVA. EKG completed showing sinus rhythm. Chest x-ray completed showing cardiomegaly with pulmonary vascular congestion correlate with serum BNP COPD changes. Lab work revealing troponin 0.379, 0.429 and 0.436, white blood cell 5.7, hemoglobin 15.4 creatinine 0.56 bun 14. At this time neurology services have been consulted MRI of the brain has been ordered CTA of the carotids ordered. Will order 2D echo and consult cardiology services. Due to patient's increasing altered mental status changes and concerns for respiratory status we will consult pulmonary services. Patient's BNP also elevated at 6490 will give 1 dose of IV Lasix. Current vital signs temp 97.9, heart rate 96, respiratory rate 18, blood pressure 100/59 with a pulse ox of 95% on nonrebreather. Review of Systems Please refer to HPI otherwise unremarkable Past Medical History Past Medical History: COPD, Hypertension Additional Past Medical History / Comment(s): diego cataracts History of Any Multi-Drug Resistant Organisms: None Reported Past Surgical History: No Surgical Hx Reported Past Anesthesia/Blood Transfusion Reactions: No Reported Reaction Past Psychological History: No Psychological Hx Reported Past Alcohol Use History: None Reported Past Drug Use History: None Reported - Past Family History Sister(s) Family Medical History: Cancer Additional Family Medical History / Comment(s): lung Medications and Allergies Home Medications Medication Instructions Recorded Confirmed Type Albuterol Inhaler [Ventolin Hfa 2 puff INHALATION RT-Q4H PRN 08/28/18 03/11/24 History Inhaler] Losartan Potassium 100 mg PO DAILY 03/11/24 03/11/24 History Pravastatin Sodium [Pravachol] 40 mg PO DAILY 03/11/24 03/11/24 History metFORMIN HCL 500 mg PO BID 03/11/24 03/11/24 History Allergies Allergy/AdvReac Type Severity Reaction Status Date / Time No Known Allergies Allergy Verified 03/11/24 14:59 Physical Exam Vitals: Vital Signs Temp Pulse Resp BP Pulse Ox 03/12/24 07:03 100 18 99/54 97 03/12/24 05:02 96 18 100/59 95 03/12/24 02:37 95 18 106/57 95 03/11/24 22:34 102 H 20 118/68 93 L 03/11/24 20:59 94 18 122/71 94 L 03/11/24 20:47 93 18 133/80 95 03/11/24 19:06 28 H 90 L 03/11/24 18:36 97.9 F 96 24 131/83 90 L 03/11/24 16:00 93 24 136/88 89 L 03/11/24 14:32 102 H 26 H 161/105 93 L 03/11/24 14:14 97.6 F 98 18 157/91 73 L Head normocephalic Neck supple Lungs clear to auscultation bilaterally no wheezing or crackles Heart regular rate and rhythm S1-S2, no rub or gallop Abdomen is soft nontender nondistended positive bowel sounds no hepatosplenomegaly Extremities no edema Neuro alert and orientated to 0. Lethargic Results CBC & Chem 7: 03/11/24 14:47 03/11/24 14:47 Labs: Abnormal Lab Results - Last 24 Hours (Table) 03/11/24 03/11/24 03/11/24 Range/Units 14:24 14:47 14:47 RBC 5.80 H (3.80-5.40) m/uL Hct 51.6 H (34.0-46.0) % MCHC 30.0 L (31.0-37.0) g/dL Lymphocytes # (Manual) 0.74 L (1.0-4.8) k/uL Carbon Dioxide 37 H (22-30) mmol/L Glucose 139 H (74-99) mg/dL POC Glucose (mg/dL) 132 H (70-110) mg/dL Troponin I (0.000-0.034) ng/mL HDL Cholesterol (40.00-60.00) mg/dL 03/11/24 03/11/24 03/11/24 Range/Units 14:47 18:02 21:05 RBC (3.80-5.40) m/uL Hct (34.0-46.0) % MCHC (31.0-37.0) g/dL Lymphocytes # (Manual) (1.0-4.8) k/uL Carbon Dioxide (22-30) mmol/L Glucose (74-99) mg/dL POC Glucose (mg/dL) (70-110) mg/dL Troponin I 0.379 H* 0.429 H* 0.436 H* (0.000-0.034) ng/mL HDL Cholesterol (40.00-60.00) mg/dL 03/12/24 Range/Units 05:23 RBC (3.80-5.40) m/uL Hct (34.0-46.0) % MCHC (31.0-37.0) g/dL Lymphocytes # (Manual) (1.0-4.8) k/uL Carbon Dioxide (22-30) mmol/L Glucose (74-99) mg/dL POC Glucose (mg/dL) (70-110) mg/dL Troponin I (0.000-0.034) ng/mL HDL Cholesterol 85.90 H (40.00-60.00) mg/dL Assessment and Plan Assessment: 1. Slurred speech and altered mental status changes likely secondary from CVA 2. Acute CHF exacerbation 3. Elevated troponins 4. Ongoing nicotine dependence greater than 1 pack/day 5. History of COPD 6. History of essential hypertension Neurology, cardiology and pulmonary services consulted 2D echo and MRI of the brain ordered Repeat labs ordered PT and OT services consulted Time with Patient: Greater than 30 (Greater than 60% of the total time spent in counseling and coordination of care)
[2024-03-12] MEDS: FUROSEMIDE 10 MG/ML 2 ML VIAL IV ONE (10:41)
--- NOTE | 2024-03-12 12:50 | CA ---
Transthoracic Echo Report Name: Mirtha Ponce Age: 73 Gender: F : 1950 Exam Date: 03/12/2024 07:39 Exam Location: [facility] Ht (in): 67 Wt (lb): 140 Ordering Physician: Yosvany Diamond MD Attending/Referring Phys: Instructional Aide Lindy Royal RDCS Procedure CPT: Indications: right parietal, left frontal infarcts. Cardiac Hx: Technical Quality: Fair Contrast 1: Total Dose (mL): Contrast 2: Total Dose (mL): MEASUREMENTS (Male / Female) Normal Values 2D ECHO LV Diastolic Diameter PLAX 3.5 cm 4.2 - 5.9 / 3.9 - 5.3 cm LV Systolic Diameter PLAX 2.2 cm IVS Diastolic Thickness 0.6 cm 0.6 - 1.0 / 0.6 - 0.9 cm LVPW Diastolic Thickness 0.9 cm 0.6 - 1.0 / 0.6 - 0.9 cm LV Relative Wall Thickness 0.4 LVOT Diameter 2.3 cm LA Volume 46.0 cm??? 18 - 58 / 22 - 52 cm??? LA Volume Index 26.5 cm???/m??? 16 - 28 cm???/m??? DOPPLER AV Peak Velocity 106.9 cm/s AV Peak Gradient 4.6 mmHg AV Mean Velocity 78.5 cm/s AV Mean Gradient 2.7 mmHg AV Velocity Time Integral 20.3 cm LVOT Peak Velocity 97.0 cm/s LVOT Peak Gradient 3.8 mmHg LVOT Velocity Time Integral 15.4 cm LVOT Stroke Volume 61.8 cm??? LVOT Stroke Volume Index 35.5 ml/m??? LVOT Cardiac Index 3421.1 cm???/min???m??? AV Area Cont Eq vti 3.0 cm??? AV Area Cont Eq pk 3.6 cm??? MV Area PHT 5.6 cm??? Mitral E Point Velocity 82.0 cm/s Mitral A Point Velocity 110.5 cm/s Mitral E to A Ratio 0.7 MV Deceleration Time 136.2 ms TR Peak Velocity 348.6 cm/s TR Peak Gradient 48.6 mmHg Right Atrial Pressure 20.0 mmHg Pulmonary Artery Systolic Pressu 68.6 mmHg Right Ventricular Systolic Press 68.6 mmHg PV Peak Velocity 93.0 cm/s PV Peak Gradient 3.5 mmHg FINDINGS Left Ventricle Left ventricular ejection fraction is estimated at 60-65 %. Left ventricular cavity size normal. Left ventricular wall thickness normal. No obvious regional wall motion abnormalities. D-shaped septum Right Ventricle Severe right ventricular dilatation with normal function. Severe pulmonary hypertension. Right Atrium Severe right atrial dilatation. Left Atrium Normal left atrial size. Mitral Valve Mitral valve thickened. Mitral annular calcification. No evidence for mitral valve prolapse. No mitral stenosis. Trace mitral regurgitation. Aortic Valve Trileaflet aortic valve. Aortic valve sclerosis. No aortic valve stenosis or regurgitation. Tricuspid Valve Structurally normal tricuspid valve. No tricuspid stenosis. Mild to Moderate tricuspid regurgitation. Pulmonic Valve Structurally normal pulmonic valve. No pulmonic stenosis. Trace pulmonic regurgitation. Pericardium No pericardial effusion. Aorta Normal size aortic root and proximal ascending aorta. CONCLUSIONS 1. Normal left ventricle size and systolic function 2. Dilated right ventricle with severe pulmonary hypertension 3. [id number] tricuspid regurgitation 4. Trace mitral regurgitation Previewed by: Dr. Jourdan Chopra MD (Electronically Signed) Final Date: 12 March 2024 12:50
[2024-03-12] MEDS ORDERED: IPRATROPIUM-ALBUTEROL 3 ML NEB INHALATION PRN (14:08)
[2024-03-12] MEDS: ENOXAPARIN 40 MG/0.4 ML SYRINGE SQ SCH (14:57)
[2024-03-12] MEDS ORDERED: NON FORMULARY DRUG (Albuterol Inhaler 90 MCG Puff) INHALATION PRN (15:58)
--- NOTE | 2024-03-12 16:01 | P.PN ---
Progress Note - Text Progress Note Date: 03/12/24 Patient has elevated troponin levels, cardiology consultation was requested. Case was discussed over the phone with Dr. Diamond neurologist, he stated that there is no contraindication from neurology standpoint to start patient on IV heparin. She will be started on IV heparin per protocol.
[2024-03-12] MEDS: PRAVASTATIN SODIUM 40 MG TAB PO SCH (17:10)
[2024-03-12 17:33] LABS: Basophils % (A) 0 %; Eosinophils % (A) 0 %; HCT 52.9 % (34.0-46.0); HGB 15.4 gm/dL (11.4-16.0); Hypochromasia Marked; Lymphocytes # (A) 1.2 k/uL (1.0-4.8); Lymphocytes % (A) 13 %; MCH 26.3 pg (25.0-35.0); MCHC 29.1 g/dL (31.0-37.0); MCV 90.4 fL (80.0-100.0); Mean Platelet Volume 6.7; Monocytes # (A) 0.4 k/uL (0-1.0); Monocytes % (A) 4 %; Neutrophils # (A) 7.2 k/uL (1.3-7.7); Neutrophils % (A) 80 %; Platelet Count 260 k/uL (150-450); RBC 5.85 m/uL (3.80-5.40); RDW 14.8 % (11.5-15.5)
[2024-03-12] MEDS: HEPARIN SODIUM 1,000 UN/ML (10ML VL) IV ONE (17:45)
[2024-03-12] MEDS: HEPARIN SOD,PORK IN 0.45% NACL 25,000 UNIT in 0.45% NACL 1 250ML.BAG IV SCH (17:46)
[2024-03-12 17:54] LABS: INR 1.1 (<1.2); Partial Thromboplastin Time 24.2 sec (22.0-30.0); Prothrombin Time 11.9 sec (10.0-12.5)
[2024-03-12 18:26] LABS: Stomatocytes Present
--- NOTE | 2024-03-12 19:57 | P.CNPUL ---
History of Present Illness Consult date: 03/12/24 Reason for consult: dyspnea, COPD History of present illness: This is a 73-year-old female patient, a chronic smoker smokes around 1.5 packs of cigarettes on a daily basis, known to have COPD, nevertheless, does not utilize any form of respiratory medications or inhalers on outpatient basis. Denies having any home O2. Most of the information was obtained from the son at the bedside who also happens to be a poor historian. The patient came into the hospital because of slurred speech and she was not following commands and she was altered. The patient had no fever. No headaches. No neck stiffness. CAT scan of the head showed a right parietal lobe acute/subacute infarcts. She was in normal sinus rhythm. At the same time, the patient was found to have elevated troponins of 0.3, 0.4 and 0.4 respectively x 3. The white cell count was at 5.7 with a hemoglobin 15.4 and the patient had a normal creatinine of 0.56 with a BUN of 14. Neurology was involved in her case and the patient was given a CTA of the brain that showed no evidence of any dissection of the cervical and the vertebral arteries and there was no evidence of any significant stenosis in the carotids or in the intracranial arteries. There was however an area of atelectasis in the left upper lobe and this is based on the partial visualization of the lung windows done on the CAT scan of the head and neck. The patient is quite hypoxic and she is currently on 5 L of oxygen by nasal cannula with pulse ox 92%. Based on those findings, pulmonary consultation was requested. Her proBNP level is 6490. She is currently on IV heparin based on elevated troponins. She is also on aspirin. Cardiology is also on the case. Echocardiogram was done and the patient was found to have a normal LV function, severe RV dilatation and evidence of severe pulmonary hypertension. Review of Systems ROS unobtainable: due to mental status Past Medical History Past Medical History: COPD, Hyperlipidemia, Hypertension Additional Past Medical History / Comment(s): diego cataracts History of Any Multi-Drug Resistant Organisms: None Reported Past Surgical History: No Surgical Hx Reported Past Anesthesia/Blood Transfusion Reactions: No Reported Reaction Past Psychological History: No Psychological Hx Reported Smoking Status: Current every day smoker (1.5 PPD and she has kurt smoking for 40 years) Past Alcohol Use History: None Reported Additional Past Alcohol Use History / Comment(s): smokes 1ppd from age 15 Past Drug Use History: None Reported - Past Family History Sister(s) Family Medical History: Cancer Additional Family Medical History / Comment(s): lung Medications and Allergies Home Medications Medication Instructions Recorded Confirmed Type Albuterol Inhaler [Ventolin Hfa 2 puff INHALATION RT-Q4H PRN 08/28/18 03/11/24 History Inhaler] Losartan Potassium 100 mg PO DAILY 03/11/24 03/11/24 History Pravastatin Sodium [Pravachol] 40 mg PO DAILY 03/11/24 03/11/24 History metFORMIN HCL 500 mg PO BID 03/11/24 03/11/24 History Allergies Allergy/AdvReac Type Severity Reaction Status Date / Time No Known Allergies Allergy Verified 03/11/24 14:59 Physical Exam Vitals: Vital Signs Temp Pulse Pulse Resp BP BP Pulse Ox 03/12/24 16:00 98.4 F 103 H 18 125/72 94 L 03/12/24 13:44 98.1 F 102 H 18 122/71 98 03/12/24 12:30 99 18 117/68 95 03/12/24 08:30 97.8 F 93 20 106/54 98 03/12/24 07:03 100 18 99/54 97 03/12/24 05:02 96 18 100/59 95 03/12/24 02:37 95 18 106/57 95 03/11/24 22:34 102 H 20 118/68 93 L 03/11/24 20:59 94 18 122/71 94 L 03/11/24 20:47 93 18 133/80 95 03/11/24 19:06 28 H 90 L 03/11/24 18:36 97.9 F 96 24 131/83 90 L Intake and Output 03/12/24 03/12/24 03/12/24 06:59 14:59 22:59 Intake Total 10 Balance 10 Intake: IV 10 Invasive Line 1 10 Other: Weight 63.503 kg The patient appeared well nourished and normally developed. Vital signs as documented. No signs of any significant respite distress and the patient is currently on 5 L of oxygen by nasal cannula Head exam is unremarkable. No scleral icterus or corneal arcus noted. Neck is without jugular venous distension, thyromegaly, or carotid bruits. Carotid upstrokes are brisk bilaterally. Lungs diminished breath sounds bilaterally Cardiac exam reveals the PMI to be normally sized and situated. Rhythm is regular. First and second heart sounds normal. No murmurs, rubs or gallops. Abdominal exam reveals normal bowel sounds, no masses, no organomegaly and no aortic enlargement. Extremities are nonedematous and both femoral and pedal pulses are normal. Examination of the skin revealed no evidence of significant rashes, suspicious appearing nevi or other concerning lesions. Neurologically, the patient is quite sleepy and lethargic. According to the son at the bedside, she was able to converse with him earlier. Pupils are equal reactive to light. No facial asymmetry. Speech could not be assessed. Strength and motor function seems to be symmetrical bilaterally. No Babinski. Sensory functions cannot be accurately assessed. Results - Laboratory Findings CBC and BMP: 03/12/24 17:20 03/11/24 14:47 ABG WBC 5.7 k/uL (3.8-10.6) 03/11/24 14:47 RBC 5.80 m/uL (3.80-5.40) H 03/11/24 14:47 Hgb 15.4 gm/dL (11.4-16.0) 03/11/24 14:47 Hct 51.6 % (34.0-46.0) H 03/11/24 14:47 MCV 88.8 fL (80.0-100.0) 03/11/24 14:47 MCH 26.6 pg (25.0-35.0) 03/11/24 14:47 MCHC 30.0 g/dL (31.0-37.0) L 03/11/24 14:47 RDW 14.9 % (11.5-15.5) 03/11/24 14:47 Plt Count 261 k/uL (150-450) 03/11/24 14:47 MPV 7.3 03/11/24 14:47 Neutrophils % (Manual) 78 % 03/11/24 14:47 Band Neuts % (Manual) 1 % 03/11/24 14:47 Lymphocytes % (Manual) 13 % 03/11/24 14:47 Monocytes % (Manual) 7 % 03/11/24 14:47 Eosinophils % (Manual) 1 % 03/11/24 14:47 Neutrophils # (Manual) 4.50 k/uL (1.3-7.7) 03/11/24 14:47 Lymphocytes # (Manual) 0.74 k/uL (1.0-4.8) L 03/11/24 14:47 Monocytes # (Manual) 0.40 k/uL (0-1.0) 03/11/24 14:47 Eosinophils # (Manual) 0.06 k/uL (0-0.7) 03/11/24 14:47 Nucleated RBCs 0 /100 WBC (0-0) 03/11/24 14:47 Manual Slide Review Performed 03/11/24 14:47 Hypochromasia Marked 03/11/24 14:47 PT 10.8 sec (10.0-12.5) 03/11/24 14:47 INR 1.0 (<1.2) 03/11/24 14:47 APTT 22.9 sec (22.0-30.0) 03/11/24 14:47 Sodium 137 mmol/L (137-145) 03/11/24 14:47 Potassium 4.9 mmol/L (3.5-5.1) 03/11/24 14:47 Chloride 98 mmol/L (98-107) 03/11/24 14:47 Carbon Dioxide 37 mmol/L (22-30) H 03/11/24 14:47 Anion Gap 2 mmol/L 03/11/24 14:47 BUN 14 mg/dL (7-17) 03/11/24 14:47 Creatinine 0.56 mg/dL (0.52-1.04) 03/11/24 14:47 Est GFR (CKD-EPI)AfAm >90 (>60 ml/min/1.73 sqM) 03/11/24 14:47 Est GFR (CKD-EPI)NonAf >90 (>60 ml/min/1.73 sqM) 03/11/24 14:47 Glucose 139 mg/dL (74-99) H 03/11/24 14:47 POC Glucose (mg/dL) 132 mg/dL (70-110) H 03/11/24 14:24 POC Glu Beet Topper ID Evans Freddie 03/11/24 14:[address] Glu mg/dL 157 mg/dL 03/12/24 05:23 Hemoglobin A1c 7.1 % (<=6.0) H 03/12/24 05:23 Calcium 8.5 mg/dL (8.4-10.2) 03/11/24 14:47 Total Bilirubin 0.6 mg/dL (0.2-1.3) 03/11/24 14:47 AST 32 U/L (14-36) 03/11/24 14:47 ALT 19 U/L (4-34) 03/11/24 14:47 Alkaline Phosphatase 76 U/L (38-126) 03/11/24 14:47 Creatine Kinase 106 U/L (30-135) 03/11/24 14:47 Troponin I 0.436 ng/mL (0.000-0.034) H* 03/11/24 21:05 NT-Pro-B Natriuret Pep 6490 pg/mL 03/11/24 14:47 Total Protein 7.0 g/dL (6.3-8.2) 03/11/24 14:47 Albumin 3.9 g/dL (3.5-5.0) 03/11/24 14:47 Triglycerides 52.50 mg/dL (0.00-149.00) 03/12/24 05:23 Cholesterol 171.00 mg/dL (0.00-200.00) 03/12/24 05:23 LDL Cholesterol, Calc 74.6 mg/dL (0.0-131.0) 03/12/24 05:23 VLDL Cholesterol, Calc 10.50 mg/dL (5.00-40.00) 03/12/24 05:23 HDL Cholesterol 85.90 mg/dL (40.00-60.00) H 03/12/24 05:23 Cholesterol/HDL Ratio 1.99 Ratio 03/12/24 05:23 PT/INR, D-dimer PT 10.8 sec (10.0-12.5) 03/11/24 14:47 INR 1.0 (<1.2) 03/11/24 14:47 Abnormal lab findings: Abnormal Labs 03/11/24 03/11/24 03/11/24 14:24 14:47 14:47 RBC 5.80 H Hct 51.6 H MCHC 30.0 L Lymphocytes # (Manual) 0.74 L Carbon Dioxide 37 H Glucose 139 H POC Glucose (mg/dL) 132 H Hemoglobin A1c Troponin I HDL Cholesterol 03/11/24 03/11/24 03/11/24 14:47 18:02 21:05 RBC Hct MCHC Lymphocytes # (Manual) Carbon Dioxide Glucose POC Glucose (mg/dL) Hemoglobin A1c Troponin I 0.379 H* 0.429 H* 0.436 H* HDL Cholesterol 03/12/24 03/12/24 05:23 05:23 RBC Hct MCHC Lymphocytes # (Manual) Carbon Dioxide Glucose POC Glucose (mg/dL) Hemoglobin A1c 7.1 H Troponin I HDL Cholesterol 85.90 H Assessment and Plan Plan: Acute CVA. Patient presented with altered mentation and slurred speech.Initial CAT scan of the brain showed evidence of a acute/subacute stroke involving the right parietal lobe. CT angiogram of the brain showed no evidence of any significant stenosis or dissection involving the carotids and the intracranial vessels. COPD Chronic smoker and the patient smokes around 1.5 packs of cigarettes on a daily basis Severe pulmonary hypertension, this could be related to chronic hypoxemia and group 3 pulmonary hypertension. The baseline oxygenation status is not known. Nevertheless the patient is known to have COPD and possibly chronic hypoxemic respiratory failure. Currently she is on 5 L of oxygen by nasal cannula. Obviously, pulmonary embolism needs to be also ruled out in the setting of a severe pulmonary pretension with abnormal troponins. Acute versus chronic hypoxic respiratory failure under investigation Left upper lobe opacity/atelectasis. Rule out endobronchial tumors versus mediastinal masses causing atelectasis/consolidation of the left upper lobe. Also, pulmonary embolism needs to be ruled out specially with an abnormal troponin and severe pulm hypertension. Abnormal troponins, currently on IV heparin and EKG showing normal sinus rhythm without any acute ST segment elevation. There is evidence of old anteroseptal infarct based on EKG findings. Hypertension Hyperlipidemia Plan Continue oxygen and the patient is currently on 5 L of oxygen by nasal cannula Continue IV heparin Proceed with a CTA of the chest and this will be needed to rule out pulmonary embolism at the same time evaluate the left upper lobe atelectasis/consolidation Patient's hypoxemia could be potentially chronic Patient will be seen by cardiology and neurology Monitor mental status Continue aspirin Continue Cozaar Continue Pravachol Will continue to follow
[2024-03-13] MEDS: HEPARIN SODIUM 1,000 UN/ML (10ML VL) IV PRN (01:04)
[2024-03-13] MEDS: LOSARTAN 50 MG TAB PO SCH (09:23)
--- NOTE | 2024-03-13 10:15 | P.PN ---
Subjective Progress Note Date: 03/13/24 Principal diagnosis: Embolic Cerebral Infarcts Ms. Ponce is a 73-year-old female with history of hypertension, COPD, and bilateral cataracts. She was seen in [facility] on March 11 in the afternoon after she awoke at 7 AM in normal condition. Following this her fa caitlyn noted approximately 9 AM she began having some speech abnormalities where she was having some slurred speech and the family was unable to understand what she was saying. However it is unknown if she exhibited specific symptoms of aphasia. Family does not relate that she had any focal weakness but she was brought into the emergency room and is being admitted for possible stroke. A CT scan of her brain reveals evidence of possibly a right parietal acute to subacute stroke as well as a left sided infarct in the postcentral gyrus. It is unknown how acute both these injuries are at this time. She does take aspirin 325 mg daily at home as well as Pepcid. This morning she is quite somnolent and somewhat difficult to arouse. However she withdraws equally on all 4 extremities and appears to have no reflex abnormalities. I do not detect facial droop. On March 12, a MRI of the brain noncontrast was ordered to observe her infarcts as well as a 2D echocardiogram to look for heart abnormalities. On March 13, 2024 the patient has been transferred to the floor. She is still difficult to arouse but will will wake up and look at the examiner as well as sit up in her bed, she is not making any significant verbal communication and breathing is is rapid. She did undergo her CT angiogram as well as echocardiogram yesterday and is pending her MRI this morning. I spoke with her family and let them know that we are doing everything we can. She was placed on heparin last night for elevated troponins; however, cardiac she was seen by cardiology and they do not believe that her elevated troponins are cardiac in nature. On exam, she is somewhat lethargic but does appear to withdraw fairly equally on the left upper extremity as well as bilateral lower extremities. Her right upper extremity appears to be slightly decreased strength compared to yesterday. Her CT angiogram of the head and neck from March 12 shows no evidence of high-grade stenosis or dissection with evidence of left upper lobe pneumonia and bilateral pleural effusions. Echocardiogram shows ejection fraction of 60 to 65% with right ventricular dilation, severe pulmonary hypertension, mild mild to moderate tricuspid regurgitation and mild mitral regurgitation. Conclusion: Ms. Ponce is a 73-year-old female with history of hypertension, COPD, and bilateral cataracts who was brought to the hospital on March 11 with some speech abnormalities and lethargy. She was noted on CT scan to have a right parietal as well as left precentral gyrus infarct. She appears distinctly aphasic and somewhat lethargic at this time. 1. The patient is currently on heparin IV as well as aspirin 325 mg daily. If the heparin is discontinued, I would place her on Plavix 75 mg daily in addition to the aspirin. The Plavix should continue for 21 more days for possible embolic stroke of uncertain significance. 2. She is awaiting a noncontrast MRI of the brain to screen for additional infarcts as well as to characterize the 2 infarcts that are noted on her CT scan. 3. I spoken to her son at bedside and given him an update on her situation. 4. The patient's rapid respiratory rate as well as infiltrates in the lungs and rapid respiratory rate suggests possible aspiration pneumonia. This may need to be treated by the primary team. It may be advisable to consider a nasogastric tube for feeding at this time. 5. Neurology will continue to follow her in house and make further recommendati ons as needed. Objective - Vital Signs Vital signs: Vital Signs Temp 98.7 F 03/13/24 08:00 Pulse 96 03/13/24 08:00 Resp 20 03/13/24 08:00 BP 114/57 03/13/24 08:00 Pulse Ox 96 03/13/24 08:00 FiO2 Intake & Output 03/12/24 03/13/24 03/13/24 18:59 06:59 18:59 Intake Total 10 55.626 20 Output Total 0 Balance 10 55.626 20 Weight 63.503 kg 67 kg Intake: IV 10 20 Invasive Line 1 10 10 Invasive Line 2 10 Intake, IV Titration 55.626 Amount Heparin Sod,Pork in 0.45% 55.626 NaCl 25,000 unit In 0.45 % NaCl 1 250ml.bag @ 12 UNITS/KG/HR 7.62 mls/hr IV .Q24H ROSALINE Rx#: [id number] Output: Urine 0 Other: Voiding Method Diaper Diaper External Catheter External Catheter # Voids 1 - Labs CBC & Chem 7: 03/12/24 17:20 03/11/24 14:47 Labs: Abnormal Lab Results - Last 24 Hours (Table) 03/12/24 03/12/24 03/12/24 Range/Units 05:23 17:20 23:47 RBC 5.85 H (3.80-5.40) m/uL Hct 52.9 H (34.0-46.0) % MCHC 29.1 L (31.0-37.0) g/dL APTT 33.4 H (22.0-30.0) sec Hemoglobin A1c 7.1 H (<=6.0) %
[2024-03-13 10:21] LABS: HCT 51.3 % (34.0-46.0); HGB 14.8 gm/dL (11.4-16.0); Hypochromasia Marked; MCH 26.1 pg (25.0-35.0); MCHC 28.9 g/dL (31.0-37.0); MCV 90.3 fL (80.0-100.0); Platelet Count 284 k/uL (150-450); RBC 5.68 m/uL (3.80-5.40); RDW 14.8 % (11.5-15.5); WBC 8.6 k/uL (3.8-10.6)
[2024-03-13 10:26] LABS: INR 1.1 (<1.2); Partial Thromboplastin Time 55.4 sec (22.0-30.0); Prothrombin Time 12.2 sec (10.0-12.5)
[2024-03-13 10:28] LABS: ALT 16 U/L (4-34); AST 30 U/L (14-36); African American GFR (CKD) >90 (>60 ml/min/1.73 sqM); Albumin 3.4 g/dL (3.5-5.0); Alkaline Phosphatase 69 U/L (38-126); Anion Gap 6 mmol/L; Blood Urea Nitrogen 25 mg/dL (7-17); Calcium 8.4 mg/dL (8.4-10.2); Carbon Dioxide 34 mmol/L (22-30); Chloride 99 mmol/L (98-107); Glucose 149 mg/dL (74-99); Non-African American GFR(CKD) 86 (>60 ml/min/1.73 sqM); Potassium 5.2 mmol/L (3.5-5.1); Sodium 139 mmol/L (137-145); Total Bilirubin 0.9 mg/dL (0.2-1.3); Total Protein 6.3 g/dL (6.3-8.2)
--- NOTE | 2024-03-13 10:52 | P.PN ---
Subjective Progress Note Date: 03/13/24 Mirtha Ponce is a 73-year-old female patient who initially presented to her PCP with complaints of slurring of speech patient was directed to come to ER for further evaluation. At this time patient is in bed sleeping not following commands or answering questions. Family at bedside history obtained through them and medical records. According to family patient was found to be having slurred speech patient did not want to come to ER at that time so was taken to PCP. Per family patient is a heavy smoker but denies any alcohol or drug use. Denies any recent illness. Additional medical history includes COPD, hypertension. Head CT completed showing right parietal lobe acute/subacute CVA. EKG completed showing sinus rhythm. Chest x-ray completed showing cardiomegaly with pulmonary vascular congestion correlate with serum BNP COPD changes. Lab work revealing troponin 0.379, 0.429 and 0.436, white blood cell 5.7, hemoglobin 15.4 creatinine 0.56 bun 14. At this time neurology services have been consulted MRI of the brain has been ordered CTA of the carotids ordered. Will order 2D echo and consult cardiology services. Due to patient's increasing altered mental status changes and concerns for respiratory status we will consult pulmonary services. Patient's BNP also elevated at 6490 will give 1 dose of IV Lasix. Current vital signs temp 97.9, heart rate 96, respiratory rate 18, blood pressure 100/59 with a pulse ox of 95% on nonrebreather. On 03/13/2024 patient was seen and examined on the medical floor she is alert and oriented x 3 in no apparent distress, she has a low-grade fever of 99.4 pulse 108 respiration 22 blood pressure 123/61 pulse ox 91% on 6 L nasal cannula, she has cough, with minimal sputum production she denies any chest pain or shortness of breath no nausea or vomiting no abdominal pain no diarrhea and no urinary symptoms. At this time will keep patient n.p.o. for possible aspiration, will start IV Zosyn and repeat chest x-ray, infectious disease con sultation was added, will continue with IV heparin due to elevated troponin levels, awaiting cardiology input. Neurology consult reviewed. Objective - Vital Signs Vital signs: Vital Signs Temp 98.7 F 03/13/24 08:00 Pulse 96 03/13/24 08:00 Resp 20 03/13/24 08:00 BP 114/57 03/13/24 08:00 Pulse Ox 96 03/13/24 08:00 FiO2 Intake & Output 03/12/24 03/13/24 03/13/24 18:59 06:59 18:59 Intake Total 10 55.626 20 Output Total 0 Balance 10 55.626 20 Weight 63.503 kg 67 kg Intake: IV 10 20 Invasive Line 1 10 10 Invasive Line 2 10 Intake, IV Titration 55.626 Amount Heparin Sod,Pork in 0.45% 55.626 NaCl 25,000 unit In 0.45 % NaCl 1 250ml.bag @ 12 UNITS/KG/HR 7.62 mls/hr IV .Q24H [facility] Rx#: [id number] Output: Urine 0 Other: Voiding Method Diaper Diaper External Catheter External Catheter # Voids 1 - Exam Head normocephalic Neck supple Lungs clear to auscultation bilaterally no wheezing or crackles Heart regular rate and rhythm S1-S2, no rub or gallop Abdomen is soft nontender nondistended positive bowel sounds no hepatosplenomegaly Extremities no edema Neuro alert and orientated to 0. Lethargic - Labs CBC & Chem 7: 03/13/24 09:40 03/13/24 09:40 Labs: Abnormal Lab Results - Last 24 Hours (Table) 03/12/24 03/12/24 03/12/24 Range/Units 05:23 05:23 17:20 RBC 5.85 H (3.80-5.40) m/uL Hct 52.9 H (34.0-46.0) % MCHC 29.1 L (31.0-37.0) g/dL APTT (22.0-30.0) sec Hemoglobin A1c 7.1 H (<=6.0) % HDL Cholesterol 85.90 H (40.00-60.00) mg/dL 03/12/24 Range/Units 23:47 RBC (3.80-5.40) m/uL Hct (34.0-46.0) % MCHC (31.0-37.0) g/dL APTT 33.4 H (22.0-30.0) sec Hemoglobin A1c (<=6.0) % HDL Cholesterol (40.00-60.00) mg/dL Assessment and Plan Assessment: 1. Slurred speech and altered mental status changes likely secondary from CVA 2. Acute CHF exacerbation 3. Elevated troponins 4. Ongoing nicotine dependence greater than 1 pack/day 5. History of COPD 6. History of essential hypertension Neurology, cardiology and pulmonary services consulted 2D echo and MRI of the brain ordered Repeat labs ordered PT and OT services consulted
[2024-03-13 10:53] LABS: Lymphocytes # (M) 0.09 k/uL (1.0-4.8); Monocytes # (M) 0.26 k/uL (0-1.0); Neutrophils # (M) 8.34 k/uL (1.3-7.7); Neutrophils % (M) 97 %; Nucleated Red Blood Cells 0 /100 WBC (0-0); Total Cells Counted 200
[2024-03-13] MEDS: IPRATROPIUM-ALBUTEROL 3 ML NEB INHALATION SCH (11:22)
--- NOTE | 2024-03-13 11:30 | XR ---
EXAMINATION TYPE: XR chest 1V portable DATE OF EXAM: 03/13/2024 11:21 AM COMPARISON: 03/11/2024 CLINICAL INDICATION: Female, 73 years old with history of diagnostics; [facility] TECHNIQUE: XR chest 1V portable Frontal view of the chest. FINDINGS: Lungs/Pleura: No evidence of focal consolidation or pneumothorax. Blunting of the costophrenic angles is present. Pulmonary vascularity: Pulmonary vascular congestion. Heart/mediastinum: Cardiomediastinal silhouette is enlarged. Musculoskeletal: No acute osseous pathology. IMPRESSION: Cardiomegaly, pulmonary vascular congestion and bilateral pleural effusions. Correlate with BNP for c ongestive heart failure. [facility], , 03/13/2024 11:28 AM
[2024-03-13 11:40] LABS: ABG Base Excess 7.4 mmol/L; ABG HCO3 38 mmol/L (21-25); ABG Oxygen Saturation 95.4 % (94-97); ABG PH 7.28 (7.35-7.45); ABG PO2 82 mmHg (83-108); ABG TCO2 40 mmol/L (19-24); Allen Test Performed? Yes
[2024-03-13 11:47] LABS: ABG PCO2 80 mmHg (35-45)
--- NOTE | 2024-03-13 12:55 | P.CRDCN ---
History of Present Illness History of present illness: HISTORY OF PRESENT ILLNESS: This is a 73-year-old female with a past medical history significant for hypertension, hyperlipidemia, diabetes, and nicotine dependence. Patient does not follow with a windows application developer. We have been asked to see the patient in consultation for elevated troponins. Patient examined at the bedside. Patient is lethargic and unable to provide any history. Patient's son is at the bedside. He states he lives at home with his mom. He states on Sunday he went to an interview and when he returned around 10 AM she had slurred speech and was not acting right. He tried to get her to come to the emergency room but she refused. Finally around 1400, she was agreeable to go to her PCP who then sent her to the emergency room for further evaluation. Patient's nurse states that patient is not talking much and when she does she just makes noises and does not make much sense. The patient's son states that she did yell at him once when he tried to reposition her in the bed. He states that she was not complaining of any chest pain or pressure prior to coming to the hospital. He denies any known history of CAD in the patient. She is a current smoker and smokes between 1 and 1 and half packs per day. DIAGNOSTICS: - EKG reveals sinus mechanism with T wave inversions in V1V4. No previous EKG available for comparison - Chest xray cardiomegaly with pulmonary vascular congestion. COPD changes. - CT of the brain: Right parietal lobe acute/subacute CVA. - CT angio: No evidence of dissection of cervical internal carotid arteries or vertebral arteries. No evidence of high-grade stenosis or intracranial aneurysm. Development of left upper lobe pneumonia. Partial visualization of bilateral pleural effusions - Laboratory data: WBC 8.6. Hemoglobin 14.8. Platelet count 284. Sodium 139. Potassium 5.2. BUN 25. Creatinine 0.70. Troponin 0.379. 0.429. 0.436. - Current home cardiac medications include losartan 100 mg daily, Pravachol 40 mg daily - Echocardiogram obtained this admission reveals ejection fraction 60 to 65%, severe pulmonary hypertension, mild to moderate TR, trace MR - Cardiac catheterization history: Denies REVIEW OF SYSTEMS: At the time of my exam: Unable to obtain thorough review of systems secondary to altered mental status PHYSICAL EXAM: VITAL SIGNS: Reviewed. GENERAL: Well-developed in no acute distress. HEENT: Head is normocephalic. Pupils are equal, round. Sclerae anicteric. Mucous membranes of the mouth are moist. Neck supple. No JVD or thyromegaly LUNGS: Respirations even and unlabored. Lungs essentially clear to auscultation bilaterally. HEART: Regular rate and rhythm. S1 and S2 heard. Systolic murmur noted ABDOMEN: Soft. Nondistended. Nontender. EXTREMITIES: Normal range of motion. No clubbing or cyanosis. Peripheral pulses intact. 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 Neurology recommending aspirin and plavix. However, patient unable to take any oral medications. Defer continuing Heparin drip to neurology. Continue telemetry monitoring to assess for any arrhythmias Patient currently not a candidate for BRIAN due to altered mental status and inability to follow directions Neurology following. MRI of the brain ordered. Further recommendations pending patient course Nurse practitioner note has been reviewed by physician. Signing provider agrees with the documented findings, assessment, and plan of care documented by FREELANCE MAKEUP ARTIST as a scribe. Past Medical History Past Medical History: COPD, Hyperlipidemia, Hypertension Additional Past Medical History / Comment(s): diego cataracts History of Any Multi-Drug Resistant Organisms: None Reported Past Surgical History: No Surgical Hx Reported Past Anesthesia/Blood Transfusion Reactions: No Reported Reaction Past Psychological History: No Psychological Hx Reported Smoking Status: Current every day smoker (1.5 PPD and she has kurt smoking for 40 years) Past Alcohol Use History: None Reported Additional Past Alcohol Use History / Comment(s): smokes 1ppd from age 15 Past Drug Use History: None Reported - Past Family History Sister(s) Family Medical History: Cancer Additional Family Medical History / Comment(s): lung Medications and Allergies Home Medications Medication Instructions Recorded Confirmed Type Albuterol Inhaler [Ventolin Hfa 2 puff INHALATION RT-Q4H PRN 08/28/18 03/11/24 History Inhaler] Losartan Potassium 100 mg PO DAILY 03/11/24 03/11/24 History Pravastatin Sodium [Pravachol] 40 mg PO DAILY 03/11/24 03/11/24 History metFORMIN HCL 500 mg PO BID 03/11/24 03/11/24 History Allergies Allergy/AdvReac Type Severity Reaction Status Date / Time No Known Allergies Allergy Verified 03/11/24 14:59 Physical Exam Vitals: Vital Signs Temp Pulse Pulse Resp BP Pulse Ox 03/13/24 05:21 99.4 F 108 H 22 123/61 91 L 03/12/24 23:30 98.4 F 104 H 20 109/55 92 L 03/12/24 19:33 106 H 16 110/58 92 L 03/12/24 16:00 98.4 F 103 H 18 125/72 94 L 03/12/24 13:44 98.1 F 102 H 18 122/71 98 03/12/24 12:30 99 18 117/68 95 03/12/24 08:30 97.8 F 93 20 106/54 98 Intake and Output 03/12/24 03/13/24 03/13/24 22:59 06:59 14:59 Intake Total 55.626 Output Total 0 Balance 0 55.626 Intake: Intake, IV Titration 55.626 Amount Heparin Sod,Pork in 0.45% 55.626 NaCl 25,000 unit In 0.45 % NaCl 1 250ml.bag @ 12 UNITS/KG/HR 7.62 mls/hr IV .Q24H [facility] Rx#: [id number] Output: Urine 0 Other: Voiding Method Diaper Diaper External Catheter External Catheter # Voids 0 1 Weight 67 kg Results 03/13/24 09:40 03/13/24 09:40 Coagulation 03/12/24 03/12/24 Range/Units 17:20 23:47 PT 11.9 (10.0-12.5) sec APTT 24.2 33.4 H (22.0-30.0) sec Lipids 03/12/24 Range/Units 05:23 Triglycerides 52.50 (0.00-149.00) mg/dL Cholesterol 171.00 (0.00-200.00) mg/dL HDL Cholesterol 85.90 H (40.00-60.00) mg/dL Cholesterol/HDL Ratio 1.99 Ratio CBC 03/12/24 Range/Units 17:20 WBC 9.0 (3.8-10.6) k/uL RBC 5.85 H (3.80-5.40) m/uL Hgb 15.4 (11.4-16.0) gm/dL Hct 52.9 H (34.0-46.0) % Plt Count 260 (150-450) k/uL Current Medications Generic Name Dose Route Start Last Admin Trade Name Freq PRN Reason Stop Dose Admin Albuterol/Ipratropium 3 ml 03/12/24 14:08 Ipratropium-Albuterol 3 Ml Neb INHALATION RT-QID PRN Shortness Of Breath Or Wheezing Aspirin 325 mg 03/12/24 09:00 03/12/24 08:26 Aspirin 325 Mg Tab PO Not Given DAILY [facility] Famotidine 20 mg 03/11/24 21:00 03/12/24 21:06 Famotidine 20 Mg/2 Ml Vial IV 20 mg Q12HR [facility] Administration Heparin Sodium (Porcine) 0 unit 03/12/24 17:11 03/13/24 01:04 Heparin Sodium 1,000 Un/Ml (10ml Vl) IV 3,175 unit PER PROTOCOL PRN Administration Low PTT Protocol Heparin Sodium/Sodium Chloride 250 mls @ 7.62 mls/hr 03/12/24 17:15 03/13/24 01:04 25,000 unit/ Sodium Chloride IV 15 units/kg/hr .Q24H [facility] 9.525 mls/hr Titration Protocol 12 UNITS/KG/HR Losartan Potassium 100 mg 03/13/24 09:00 Losartan 50 Mg Tab PO DAILY [facility] Pravastatin Sodium 40 mg 03/12/24 16:00 03/12/24 17:10 Pravastatin Sodium 40 Mg Tab PO Not Given DAILY [facility] Intake and Output 03/12/24 03/13/24 03/13/24 22:59 06:59 14:59 Intake Total 55.626 Output Total 0 Balance 0 55.626 Intake: Intake, IV Titration 55.626 Amount Heparin Sod,Pork in 0.45% 55.626 NaCl 25,000 unit In 0.45 % NaCl 1 250ml.bag @ 12 UNITS/KG/HR 7.62 mls/hr IV .Q24H [facility] Rx#: [id number] Output: Urine 0 Other: Voiding Method Diaper Diaper External Catheter External Catheter # Voids 0 1 Weight 67 kg 03/12/24 17:20 03/11/24 14:47
[2024-03-13] MEDS ORDERED: NALOXONE 0.4 MG/ML 1 ML VIAL IV PRN (13:22)
[2024-03-13 13:31] LABS: Glucose,Whole Blood 147 mg/dL (70-110)
[2024-03-13 13:47] LABS: Appearance,Urine Turbid (Clear); Bilirubin,Urine Negative (Negative); Blood,Urine Large (Negative); Color,Urine Light Red; Glucose,Urine (UA) Negative (Negative); Hyaline Casts,Urine 6 /lpf (0-2); Ketones,Urine 1+ (Negative); Leukocyte Esterase,Urine Negative (Negative); Mucus,Urine Moderate /hpf; Nitrite,Urine Negative (Negative); PH, Urine 5.5 (5.0-8.0); Protein,Urine Trace (Negative); RBC,Urine >182 /hpf (0-5); Specific Gravity,Urine 1.022 (1.001-1.035); Urobilinogen,Urine <2.0 mg/dL (<2.0); WBC,Urine 2 /hpf (0-5)
[2024-03-13] MEDS: ACETAMINOPHEN IV (For NPO) 1,000 MG in EMPTY BAG 1 BAG IVPB ONE (13:47)
[2024-03-13] MEDS: methylPREDNISolone SOD SUCCI 125 MG/2 ML VIAL IV SCH (13:56)
[2024-03-13] MEDS: PIPERACILLIN-TAZOBACTAM 3.375 GM in SODIUM CHLORIDE 0.9% 100 ML IVPB SCH (13:56)
[2024-03-13 14:27] LABS: Basophils % (A) 1 %; Eosinophils # (A) 0.1 k/uL (0-0.7); Eosinophils % (A) 1 %; HCT 49.3 % (34.0-46.0); HGB 14.2 gm/dL (11.4-16.0); Hypochromasia Marked; Lymphocytes # (A) 0.9 k/uL (1.0-4.8); Lymphocytes % (A) 11 %; MCH 25.9 pg (25.0-35.0); MCHC 28.8 g/dL (31.0-37.0); Monocytes # (A) 0.4 k/uL (0-1.0); Monocytes % (A) 5 %; Neutrophils # (A) 6.4 k/uL (1.3-7.7); Neutrophils % (A) 80 %; Platelet Count 246 k/uL (150-450); RBC 5.47 m/uL (3.80-5.40); RDW 14.9 % (11.5-15.5)
--- NOTE | 2024-03-13 14:31 | P.PN ---
Subjective Progress Note Date: 03/13/24 This is a 73-year-old female patient, a chronic smoker smokes around 1.5 packs of cigarettes on a daily basis, known to have COPD, nevertheless, does not utilize any form of respiratory medications or inhalers on outpatient basis. Denies having any home O2. Most of the information was obtained from the son at the bedside who also happens to be a poor historian. The patient came into the hospital because of slurred speech and she was not following commands and she was altered. The patient had no fever. No headaches. No neck stiffness. CAT scan of the head showed a right parietal lobe acute/subacute infarcts. She was in normal sinus rhythm. At the same time, the patient was found to have elevated troponins of 0.3, 0.4 and 0.4 respectively x 3. The white cell count was at 5.7 with a hemoglobin 15.4 and the patient had a normal creatinine of 0.56 with a BUN of 14. Neurology was involved in her case and the patient was given a CTA of the brain that showed no evidence of any dissection of the cervical and the vertebral arteries and there was no evidence of any significant stenosis in the carotids or in the intracranial arteries. There was however an area of atelectasis in the left upper lobe and this is based on the partial visualization of the lung windows done on the CAT scan of the head and neck. The patient is quite hypoxic and she is currently on 5 L of oxygen by nasal cannula with pulse ox 92%. Based on those findings, pulmonary consultation was requested. Her proBNP level is 6490. She is currently on IV heparin based on elevated troponins. She is also on aspirin. Cardiology is also on the case. Echocardiogram was done and the patient was found to have a normal LV function, severe RV dilatation and evidence of severe pulmonary hypertension. 03/13/2024, the patient is being seen for a follow-up. The patient is more lethargic compared to yesterday. The time of my evaluation, the patient was also tachypneic and had diminished level of consciousness. Her respiratory efforts were becoming more labored. Based on that, a blood gas was done while the patient was on oxygen at 5 L and the patient was found to have significant respiratory acidosis and there was evidence of an acute on top of chronic hypercapnic respiratory failure with a pH of 7.28 and pCO2 of 80 and pO2 of 82. Based on that, made recommendations for this patient to be transferred to the intensive care unit and started on a BiPAP. She is on DuoNeb the regiment [id number]. Will start IV Solu-Medrol. Will continue IV Zosyn. I requested a CT angiogram of the chest and this was not completed as the patient was not found to be stable enough to be transferred for a CTA of the chest. Chest x-ray from today shows cardiomegaly and pulm venous congestion and the patient will be given a dose of Lasix. After transfer to the ICU, the patient was given a Luevano catheter and immediately there was a total of 2 L of urine output obtained. Patient was also seen by neurology. The patient is quite lethargic. She is not hypercapnic respiratory failure. CAT scan of the brain showed a right parietal as well as left precentral gyrus infarct. She is not conversing at this point in time. She withdraws to painful stimulation. No seizure activity has been noted. Patient remains on IV heparin. MRI of the brain to be obtained later stage. Objective - Vital Signs Vital signs: Vital Signs Temp 98.7 F 03/13/24 08:00 Pulse 96 03/13/24 08:00 Resp 20 03/13/24 08:00 BP 114/57 03/13/24 08:00 Pulse Ox 96 03/13/24 08:00 FiO2 Intake & Output 03/12/24 03/13/24 03/13/24 18:59 06:59 18:59 Intake Total 10 55.626 20 Output Total 0 Balance 10 55.626 20 Weight 63.503 kg 67 kg Intake: IV 10 20 Invasive Line 1 10 10 Invasive Line 2 10 Intake, IV Titration 55.626 Amount Heparin Sod,Pork in 0.45% 55.626 NaCl 25,000 unit In 0.45 % NaCl 1 250ml.bag @ 12 UNITS/KG/HR 7.62 mls/hr IV .Q24H [facility] Rx#: [id number] Output: Urine 0 Other: Voiding Method Diaper Diaper External Catheter External Catheter # Voids 1 - Exam The patient appeared well short of breath, lethargic, quite obtunded. Vital signs as documented. The breathing is labored and there is significant respiratory distress and the patient is currently on 5 L of oxygen by nasal cannula Head exam is unremarkable. No scleral icterus or corneal arcus noted. Neck is without jugular venous distension, thyromegaly, or carotid bruits. Carotid upstrokes are brisk bilaterally. Lungs diminished breath sounds bilaterally Cardiac exam reveals the PMI to be normally sized and situated. Rhythm is regular. First and second heart sounds normal. No murmurs, rubs or gallops. Abdominal exam reveals normal bowel sounds, no masses, no organomegaly and no aortic enlargement. Extremities are nonedematous and both femoral and pedal pulses are normal. Examination of the skin revealed no evidence of significant rashes, suspicious appearing nevi or other concerning lesions. Neurologically, the patient is quite sleepy and lethargic. According to the son at the bedside, she was able to converse with him earlier. Pupils are equal reactive to light. No facial asymmetry. Speech could not be assessed. Strength and motor function seems to be symmetrical bilaterally. No Babinski. Sensory functions cannot be accurately assessed. - Labs CBC & Chem 7: 03/13/24 09:40 03/13/24 09:40 Labs: Abnormal Lab Results - Last 24 Hours (Table) 03/12/24 03/12/24 03/13/24 Range/Units 17:20 23:47 09:40 RBC 5.85 H (3.80-5.40) m/uL Hct 52.9 H (34.0-46.0) % MCHC 29.1 L (31.0-37.0) g/dL Neutrophils # (Manual) (1.3-7.7) k/uL Lymphocytes # (Manual) (1.0-4.8) k/uL APTT 33.4 H 55.4 H (22.0-30.0) sec Potassium (3.5-5.1) mmol/L Carbon Dioxide (22-30) mmol/L BUN (7-17) mg/dL Glucose (74-99) mg/dL Albumin (3.5-5.0) g/dL 03/13/24 03/13/24 Range/Units 09:40 09:40 RBC 5.68 H (3.80-5.40) m/uL Hct 51.3 H (34.0-46.0) % MCHC 28.9 L (31.0-37.0) g/dL Neutrophils # (Manual) 8.34 H (1.3-7.7) k/uL Lymphocytes # (Manual) 0.09 L (1.0-4.8) k/uL APTT (22.0-30.0) sec Potassium 5.2 H (3.5-5.1) mmol/L Carbon Dioxide 34 H (22-30) mmol/L BUN 25 H (7-17) mg/dL Glucose 149 H (74-99) mg/dL Albumin 3.4 L (3.5-5.0) g/dL Assessment and Plan Plan: Acute CVA. Patient presented with altered mentation and slurred speech.Initial CAT scan of the brain showed evidence of a acute/subacute stroke involving the right parietal lobe. CT angiogram of the brain showed no evidence of any significant stenosis or dissection involving the carotids and the intracranial vessels. The patient remains quite lethargic and has diminished level of consciousness. Her blood gas, there is also a component of an acute on top of chronic respiratory acidosis. COPD with likely chronic hypoxic and hypercapnic respiratory failure, please refer to the blood gases done this morning. There is a component of an acute on top of chronic hypercapnic respiratory failure Chronic hypoxic respiratory failure Acute on top of chronic hypercapnic respiratory failure due to COPD exacerbation. There is an opacity in the left upper lobe and is to be further investigated. Awaiting a CT of the chest. Chronic smoker and the patient smokes around 1.5 packs of cigarettes on a daily basis Severe pulmonary hypertension, this could be related to chronic hypoxemia and group 3 pulmonary hypertension. The baseline oxygenation status is not known. Nevertheless the patient is known to have COPD and possibly chronic hypoxemic respiratory failure. Obviously, pulmonary embolism needs to be also ruled out in the setting of a severe pulmonary pretension with abnormal troponins. Acute on chronic hypoxic respiratory failure under investigation Left upper lobe opacity/atelectasis. Rule out endobronchial tumors versus mediastinal masses causing atelectasis/consolidation of the left upper lobe. Also, pulmonary embolism needs to be ruled out specially with an abnormal troponin and severe pulm hypertension. Abnormal troponins, currently on IV heparin and EKG showing normal sinus rhythm without any acute ST segment elevation. There is evidence of old anteroseptal infarct based on EKG findings. Hypertension Hyperlipidemia Plan Transfer the patient to the ICU event start the patient on BiPAP initially pressure of 12/5 and titrate oxygen flow to maintain saturation above 90% Continue IV heparin Proceed with a CTA of the chest and this will be needed to rule out pulmonary embolism at the same time evaluate the left upper lobe atelectasi s/consolidation, to be done today once the patient is felt to be more stable Continue DuoNeb nebulized treatments [id number] Start IV Solu-Medrol Continue IV Zosyn MRI of the brain once more stable Monitor mental status Continue aspirin Continue Cozaar Continue Pravachol Will continue to follow For now, the patient is to be transferred to the intensive care unit. Will maintain his current treatment and plan for a CTA of the chest. Condition is critical and this evaluation was done more than 30 minutes. Case was discussed with the son at the bedside. Time with Patient: Greater than 30
[2024-03-13 14:36] LABS: African American GFR (CKD) >90 (>60 ml/min/1.73 sqM); Anion Gap 1 mmol/L; Blood Urea Nitrogen 29 mg/dL (7-17); Calcium 8.3 mg/dL (8.4-10.2); Carbon Dioxide 37 mmol/L (22-30); Chloride 98 mmol/L (98-107); Glucose 145 mg/dL (74-99); Magnesium 1.6 mg/dL (1.6-2.3); Non-African American GFR(CKD) 86 (>60 ml/min/1.73 sqM); Potassium 5.2 mmol/L (3.5-5.1); Sodium 136 mmol/L (137-145)
[2024-03-13] MEDS: FUROSEMIDE 10 MG/ML 4 ML VIAL IV STA (15:29)
--- NOTE | 2024-03-13 17:03 | CT ---
EXAMINATION TYPE: CT angio chest DATE OF EXAM: 03/13/2024 4:52 PM COMPARISON: Previous CT chest study dated 06/18/2023. CLINICAL INDICATION: Female, 73 years old with history of Severe pulmonary hypertension, left upper l obe opa; pulmonary htn TECHNIQUE/CONTRAST: CTA scan of the thorax is performed with IV Contrast, patient injected with 100 mL of Isovue 370, MIP images are created and reviewed these are created on a separate workstation.. CT DLP: 315 mGycm, Automated exposure control for dose reduction was used. FINDINGS: Pulmonary Artery: There is no evidence for a central filling defect within the pulmonary vasculature to suggest acute pulmonary embolism. Limited evaluation of the lower lobe segmental and subsegmental branches due to lower lobe mucous plugging and opacities. The pulmonary artery is of normal size. Lungs/Pleura: Left upper lobe predominant interlobular septal thickening and patchy groundglass opaci ties. Lower lobe mucous plugging and patchy consolidative opacities. Small bilateral pleural effusion s with adjacent compressive atelectasis. Airway: Large airways are patent. Heart: Cardiomegaly. No significant pericardial effusion. Vasculature: No evidence of aortic aneurysm. Mediastinum: No gross evidence of adenopathy. Musculoskeletal: No acute osseous abnormalities Soft Tissues/lymph nodes: Unremarkable. Lower neck: No significant findings. Upper Abdomen: No significant acute findings. Possible cirrhotic liver morphology partially visualize d. IMPRESSION: 1. No evidence of acute pulmonary embolism. 2. Cardiomegaly, small bilateral pleural effusions and interlobular septal thickening suggestive of pulmonary edema. Additionally, patchy consolidative opacities reflect atelectasis and/or infectious e tiology/pneumonia in the appropriate clinical setting. 3. Dilated main pulmonary artery, which can be associated with pulmonary hypertension. [facility], , 03/13/2024 5:01 PM
[2024-03-14 04:52] LABS: ALT 14 U/L (4-34); AST 26 U/L (14-36); African American GFR (CKD) 84 (>60 ml/min/1.73 sqM); Albumin 3.6 g/dL (3.5-5.0); Alkaline Phosphatase 61 U/L (38-126); Blood Urea Nitrogen 36 mg/dL (7-17); Calcium 8.4 mg/dL (8.4-10.2); Chloride 95 mmol/L (98-107); Glucose 164 mg/dL (74-99); Non-African American GFR(CKD) 73 (>60 ml/min/1.73 sqM); Potassium 5.1 mmol/L (3.5-5.1); Sodium 138 mmol/L (137-145); Total Bilirubin 0.7 mg/dL (0.2-1.3); Total Protein 6.5 g/dL (6.3-8.2)
[2024-03-14 04:58] LABS: Anion Gap 6 mmol/L
[2024-03-14 05:05] LABS: Carbon Dioxide 37 mmol/L (22-30)
[2024-03-14 05:10] LABS: Basophils % (A) 0 %; Eosinophils % (A) 0 %; HGB 14.7 gm/dL (11.4-16.0); Hypochromasia Marked; Lymphocytes # (A) 0.4 k/uL (1.0-4.8); Lymphocytes % (A) 7 %; MCHC 29.4 g/dL (31.0-37.0); MCV 88.7 fL (80.0-100.0); Mean Platelet Volume 7.9; Monocytes # (A) 0.2 k/uL (0-1.0); Monocytes % (A) 3 %; Neutrophils # (A) 5.5 k/uL (1.3-7.7); Neutrophils % (A) 90 %; Platelet Count 274 k/uL (150-450); RBC 5.64 m/uL (3.80-5.40); WBC 6.1 k/uL (3.8-10.6)
--- NOTE | 2024-03-14 08:16 | XR ---
EXAMINATION TYPE: XR chest 1V DATE OF EXAM: 03/14/2024 COMPARISON: 03/13/2024 CLINICAL INDICATION: Female, 73 years old with history of increased O2 demands; TECHNIQUE: Single frontal view of the chest is obtained. FINDINGS: Heart mildly enlarged. Hyperinflation. Diffuse interstitial opacities persist. Some improving aeratio n at the bilateral lower lungs. IMPRESSION: 1. Correlate for COPD with residual superimposed mild CHF and pulmonary vascular congestion. 2. Interval improvement in bibasilar airspace disease. [facility], , 03/14/2024 8:14 AM
--- NOTE | 2024-03-14 08:34 | P.CONS ---
History of Present Illness - Reason for Consult Consult date: 03/13/24 Aspiration Requesting physician: Natalia Benedict - Chief Complaint Slurred speech x 2 days - History of Present Illness Patient is a 73-year-old female with a past medical history significant for COPD hypertension hyperlipidemia patient was brought into the hospital 2 days ago after the patient was noted to have some stuttering and the son was not able to understand her speech and the patient was brought to the hospital concerning for a stroke patient on arrival to the ER was afebrile and no fever have recorded subsequently patient was not tachycardic hypotensive patient did have a white count of 8.0 with a left shift creatinine 0.69 liver enzymes are normal urine grossly with hematuria patient initially has been worked up for CVA stroke and was seen by pulmonary and neurology services this morning the patient did have worsening of her respiratory status and there is concern for possible aspiration chest x-ray has been ordered patient was started on Zosyn infectious disease was consulted for further management of antibiotic therapy patient is currently on the BiPAP lethargic and cannot provide any history most information has been obtained from review the chart and talking to the son at the bedside no clear history of any vomiting or diarrhea reported chest x-ray from this morning is currently pending Review of Systems Positive points has been mentioned in HPI complete review could not be obtained because of his underlying mental status Past Medical History Past Medical History: COPD, Hyperlipidemia, Hypertension Additional Past Medical History / Comment(s): diego cataracts History of Any Multi-Drug Resistant Organisms: None Reported Past Surgical History: No Surgical Hx Reported Past Anesthesia/Blood Transfusion Reactions: No Reported Reaction Past Psychological History: No Psychological Hx Reported Smoking Status: Current every day smoker (1.5 PPD and she has kurt smoking for 40 years) Past Alcohol Use History: None Reported Additional Past Alcohol Use History / Comment(s): smokes 1ppd from age 15 Past Drug Use History: None Reported - Past Family History Sister(s) Family Medical History: Cancer Additional Family Medical History / Comment(s): lung Medications and Allergies Home Medications Medication Instructions Recorded Confirmed Type Albuterol Inhaler [Ventolin Hfa 2 puff INHALATION RT-Q4H PRN 08/28/18 03/11/24 History Inhaler] Losartan Potassium 100 mg PO DAILY 03/11/24 03/11/24 History Pravastatin Sodium [Pravachol] 40 mg PO DAILY 03/11/24 03/11/24 History metFORMIN HCL 500 mg PO BID 03/11/24 03/11/24 History Allergies Allergy/AdvReac Type Severity Reaction Status Date / Time No Known Allergies Allergy Verified 03/11/24 14:59 Physical Exam Vitals: Vital Signs Temp Pulse Pulse Resp BP Pulse Ox 03/13/24 08:00 98.7 F 96 20 114/57 96 03/13/24 05:21 99.4 F 108 H 22 123/61 91 L 03/12/24 23:30 98.4 F 104 H 20 109/55 92 L 03/12/24 19:33 106 H 16 110/58 92 L 03/12/24 16:00 98.4 F 103 H 18 125/72 94 L 03/12/24 13:44 98.1 F 102 H 18 122/71 98 03/12/24 12:30 99 18 117/68 95 Intake and Output 03/12/24 03/13/24 03/13/24 22:59 06:59 14:59 Intake Total 55.626 20 Output Total 0 Balance 0 55.626 20 Intake: IV 20 Invasive Line 1 10 Invasive Line 2 10 Intake, IV Titration 55.626 Amount Heparin Sod,Pork in 0.45% 55.626 NaCl 25,000 unit In 0.45 % NaCl 1 250ml.bag @ 12 UNITS/KG/HR 7.62 mls/hr IV .Q24H [facility] Rx#: [id number] Output: Urine 0 Other: Voiding Method Diaper Diaper Diaper External Catheter External Catheter External Catheter # Voids 0 1 Weight 67 kg GENERAL DESCRIPTION: Elderly female lying in bed, no distress. No tachypnea or accessory muscle of respiration use. HEENT: Shows Pallor , no scleral icterus. Oral mucous membrane is dry. NECK: Trachea central, no thyromegaly. LUNGS: Unlabored breathing. Decreased intensity breath sounds HEART: S1, S2, regular rate and rhythm. No loud murmur ABDOMEN: Soft, no tenderness , EXTREMITIES: No edema of feet. SKIN: No rash, no masses palpable. NEUROLOGICAL: The patient is lethargic on the BiPAP orientation could not be determined Results CBC & Chem 7: 03/14/24 03:58 03/14/24 03:58 Labs: Abnormal Lab Results - Last 24 Hours (Table) 03/12/24 03/12/24 03/13/24 Range/Units 17:20 23:47 09:40 RBC 5.85 H (3.80-5.40) m/uL Hct 52.9 H (34.0-46.0) % MCHC 29.1 L (31.0-37.0) g/dL Neutrophils # (Manual) (1.3-7.7) k/uL Lymphocytes # (Manual) (1.0-4.8) k/uL APTT 33.4 H 55.4 H (22.0-30.0) sec Potassium (3.5-5.1) mmol/L Carbon Dioxide (22-30) mmol/L BUN (7-17) mg/dL Glucose (74-99) mg/dL Albumin (3.5-5.0) g/dL 03/13/24 03/13/24 Range/Units 09:40 09:40 RBC 5.68 H (3.80-5.40) m/uL Hct 51.3 H (34.0-46.0) % MCHC 28.9 L (31.0-37.0) g/dL Neutrophils # (Manual) 8.34 H (1.3-7.7) k/uL Lymphocytes # (Manual) 0.09 L (1.0-4.8) k/uL APTT (22.0-30.0) sec Potassium 5.2 H (3.5-5.1) mmol/L Carbon Dioxide 34 H (22-30) mmol/L BUN 25 H (7-17) mg/dL Glucose 149 H (74-99) mg/dL Albumin 3.4 L (3.5-5.0) g/dL Assessment and Plan (1) Aspiration pneumonia Current Visit: Yes Status: Acute Code(s): J69.0 - PNEUMONITIS DUE TO INHALATION OF FOOD AND VOMIT SNOMED Code(s): 413494898 Plan: 1patient with worsening respiratory status and this patient initially brought into the hospital with slurred speech and being worked up for a CVA with worsening of respiratory status requiring BiPAP and a question of possible aspiration. 2we will wait for the x-ray to finalize check a CRP and procalcitonin level. 3Zosyn 3.375 g every 8 hours should provide adequate empiric antibiotic coverage Son at the bedside question concern answered We will follow on clinical condition and cultures to further adjust medication if needed Thank you for this consultation we will follow the patient along with you Dictation was produced using [employer] dictation software. please excuse any grammatical, word or spelling errors.
[2024-03-14] MEDS: ATORVASTATIN 40 MG TAB PO SCH (09:02)
--- NOTE | 2024-03-14 09:31 | P.PN ---
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 Ponce is a 73-year-old female with history of hypertension, COPD, and bilateral cataracts. She was seen in [facility] on March 11 in the afternoon after she awoke at 7 AM in normal condition. Following this her family noted approximately 9 AM she began having some speech abnormalities where she was having some slurred speech and the family was unable to understand what she was saying. However it is unknown if she exhibited specific symptoms of aphasia. Family does not relate that she had any focal weakness but she was brought into the emergency room and is being admitted for possible stroke. A CT scan of her brain reveals evidence of possibly a right parietal acute to subacute stroke as well as a left sided infarct in the postcentral gyrus. It is unknown how acute both these injuries are at this time. She does take aspirin 325 mg daily at home as well as Pepcid. This morning she is quite somnolent and somewhat difficult to arouse. However she withdraws equally on all 4 extremities and appears to have no reflex abnormalities. I do not detect facial droop. On March 12, a MRI of the brain noncontrast was ordered to observe her infarcts as well as a 2D echocardiogram to look for heart abnormalities. On March 13, 2024 the patient has been transferred to the floor. She is still difficult to arouse but will will wake up and look at the examiner as well as sit up in her bed, she is not making any significant verbal communication and breathing is is rapid. She did undergo her CT angiogram as well as echocardiogram yesterday and is pending her MRI this morning. I spoke with her family and let them know that we are doing everything we can. She was placed on heparin last night for elevated troponins; however, cardiac she was seen by cardiology and they do not believe that her elevated troponins are cardiac in nature. On exam, she is somewhat lethargic but does appear to withdraw fairly equally on the left upper extremity as well as bilateral lower extremities. Her right upper extremity appears to be slightly decreased strength compared to yesterday. Her CT angiogram of the head and neck from March 12 shows no evidence of high-grade stenosis or dissection with evidence of left upper lobe pneumonia and bilateral pleural effusions. Echocardiogram shows ejection fraction of 60 to 65% with right ventricular dilation, severe pulmonary hypertension, mild mild to moderate tricuspid regurgitation and mild mitral regurgitation. On March 14, it is noted the patient was transferred to the ICU overnight, as she was having severe respiratory distress. She is now on a BiPAP mask. Unfortunately. This precludes her from receiving an MRI of the brain at this time, as well as her heparin drip which is in place per cardiology. She does not yet have a feeding tube placed and this is the reason where we have the IV heparin on board. This morning, the patient is slightly more arousable and will attempt to open her eyes as well as attempt to sit up in bed. On exam, she does not appear to have a facial droop but does appear to be withdrawing her right arm less than her left arm. Legs will withdraw fairly symmetrically and I did not detect a Babinski sign at this time Conclusion: Ms. Ponce is a 73-year-old female with history of hypertension, COPD, and bilateral cataracts who was brought to the hospital on March 11 with some speech abnormalities and lethargy. She was noted on CT scan to have a right parietal as well as left precentral gyrus infarct. She has made some improvement in terms of her mental status, and is now on BiPAP in the ICU for respiratory distress and possible pneumonitis. 1. I have asked the ICU nurse to request the nasogastric tube be placed so that we may discontinue her from a heparin drip and start her on aspirin and Plavix for coverage of embolic stroke of uncertain significance C. She has not been noted to be in atrial fibrillation while she is in in house. 2. Once the nasogastric tube was placed, I will transition her off of heparin and start her on aspirin 325 mg p.o. daily as well as Plavix 75 mg daily and continue the Plavix for 21 days for diagnosis of embolic stroke of uncertain significance. 3. The patient will need to be removed from BiPAP prior to receiving her MRI of the brain. This is expected to be likely a few days. 4. I believe the patient may ultimately require a permanent feeding tube as she does not appear to be feeding herself well. However while I will wait on this recommendation to review her progress over the next few days. 5. Neurology will continue to follow the patient and make further recommendations as needed. Objective - Vital Signs Vital signs: Vital Signs Temp 98 F 03/14/24 04:00 Pulse 89 03/14/24 07:00 Resp 26 H 03/14/24 07:00 BP 121/62 03/14/24 07:00 Pulse Ox 96 03/14/24 07:00 FiO2 45 03/14/24 04:25 Intake & Output 03/13/24 03/14/24 03/14/24 18:59 06:59 18:59 Intake Total 220 635.577 Output Total 3140 910 Balance -2920 -274.423 Weight 64.1 kg Intake: IV 220 460 0.9 100 260 Invasive Line 1 10 Invasive Line 2 10 Piperacillin-Tazobactam 3 100 200 .375 gm In Sodium Chloride 0.9% 100 ml @ 25 mls/hr IVPB Q8H [facility] Rx#: [id number] Intake, IV Titration 175.577 Amount Heparin Sod,Pork in 0.45% 175.577 NaCl 25,000 unit In 0.45 % NaCl 1 250ml.bag @ 12 UNITS/KG/HR 7.62 mls/hr IV .Q24H [facility] Rx#: [id number] Output: Urine 3140 910 Other: Voiding Method Indwelling Catheter Indwelling Catheter - Labs CBC & Chem 7: 03/14/24 03:58 03/14/24 03:58 Labs: Abnormal Lab Results - Last 24 Hours (Table) 03/13/24 03/13/24 03/13/24 Range/Units 09:40 09:40 09:40 RBC 5.68 H (3.80-5.40) m/uL Hct 51.3 H (34.0-46.0) % MCHC 28.9 L (31.0-37.0) g/dL Neutrophils # (Manual) 8.34 H (1.3-7.7) k/uL Lymphocytes # (1.0-4.8) k/uL Lymphocytes # (Manual) 0.09 L (1.0-4.8) k/uL APTT 55.4 H (22.0-30.0) sec D-Dimer (<0.60) mg/L FEU ABG pH (7.35-7.45) ABG pCO2 (35-45) mmHg ABG pO2 (83-108) mmHg ABG HCO3 (21-25) mmol/L ABG Total CO2 (19-24) mmol/L Sodium (137-145) mmol/L Potassium 5.2 H (3.5-5.1) mmol/L Chloride (98-107) mmol/L Carbon Dioxide 34 H (22-30) mmol/L BUN 25 H (7-17) mg/dL Glucose 149 H (74-99) mg/dL POC Glucose (mg/dL) (70-110) mg/dL Calcium (8.4-10.2) mg/dL Albumin 3.4 L (3.5-5.0) g/dL Urine Appearance (Clear) Urine Protein (Negative) Urine Ketones (Negative) Urine Blood (Negative) Urine RBC (0-5) /hpf Hyaline Casts (0-2) /lpf Urine Mucus (None) /hpf 03/13/24 03/13/24 03/13/24 Range/Units 11:35 13:29 13:30 RBC (3.80-5.40) m/uL Hct (34.0-46.0) % MCHC (31.0-37.0) g/dL Neutrophils # (Manual) (1.3-7.7) k/uL Lymphocytes # (1.0-4.8) k/uL Lymphocytes # (Manual) (1.0-4.8) k/uL APTT (22.0-30.0) sec D-Dimer (<0.60) mg/L FEU ABG pH 7.28 L (7.35-7.45) ABG pCO2 80 H* (35-45) mmHg ABG pO2 82 L (83-108) mmHg ABG HCO3 38 H (21-25) mmol/L ABG Total CO2 40 H (19-24) mmol/L Sodium (137-145) mmol/L Potassium (3.5-5.1) mmol/L Chloride (98-107) mmol/L Carbon Dioxide (22-30) mmol/L BUN (7-17) mg/dL Glucose (74-99) mg/dL POC Glucose (mg/dL) 147 H (70-110) mg/dL Calcium (8.4-10.2) mg/dL Albumin (3.5-5.0) g/dL Urine Appearance Turbid H (Clear) Urine Protein Trace H (Negative) Urine Ketones 1+ H (Negative) Urine Blood Large H (Negative) Urine RBC >182 H (0-5) /hpf Hyaline Casts 6 H (0-2) /lpf Urine Mucus Moderate H (None) /hpf 03/13/24 03/13/24 03/13/24 Range/Units 14:01 14:01 14:01 RBC 5.47 H (3.80-5.40) m/uL Hct 49.3 H (34.0-46.0) % MCHC 28.8 L (31.0-37.0) g/dL Neutrophils # (Manual) (1.3-7.7) k/uL Lymphocytes # 0.9 L (1.0-4.8) k/uL Lymphocytes # (Manual) (1.0-4.8) k/uL APTT (22.0-30.0) sec D-Dimer 1.03 H (<0.60) mg/L FEU ABG pH (7.35-7.45) ABG pCO2 (35-45) mmHg ABG pO2 (83-108) mmHg ABG HCO3 (21-25) mmol/L ABG Total CO2 (19-24) mmol/L Sodium 136 L (137-145) mmol/L Potassium 5.2 H (3.5-5.1) mmol/L Chloride (98-107) mmol/L Carbon Dioxide 37 H (22-30) mmol/L BUN 29 H (7-17) mg/dL Glucose 145 H (74-99) mg/dL POC Glucose (mg/dL) (70-110) mg/dL Calcium 8.3 L (8.4-10.2) mg/dL Albumin (3.5-5.0) g/dL Urine Appearance (Clear) Urine Protein (Negative) Urine Ketones (Negative) Urine Blood (Negative) Urine RBC (0-5) /hpf Hyaline Casts (0-2) /lpf Urine Mucus (None) /hpf 03/14/24 03/14/24 03/14/24 Range/Units 03:58 03:58 03:58 RBC 5.64 H (3.80-5.40) m/uL Hct 50.0 H (34.0-46.0) % MCHC 29.4 L (31.0-37.0) g/dL Neutrophils # (Manual) (1.3-7.7) k/uL Lymphocytes # 0.4 L (1.0-4.8) k/uL Lymphocytes # (Manual) (1.0-4.8) k/uL APTT 51.2 H (22.0-30.0) sec D-Dimer (<0.60) mg/L FEU ABG pH (7.35-7.45) ABG pCO2 (35-45) mmHg ABG pO2 (83-108) mmHg ABG HCO3 (21-25) mmol/L ABG Total CO2 (19-24) mmol/L Sodium (137-145) mmol/L Potassium (3.5-5.1) mmol/L Chloride 95 L (98-107) mmol/L Carbon Dioxide 37 H (22-30) mmol/L BUN 36 H (7-17) mg/dL Glucose 164 H (74-99) mg/dL POC Glucose (mg/dL) (70-110) mg/dL Calcium (8.4-10.2) mg/dL Albumin (3.5-5.0) g/dL Urine Appearance (Clear) Urine Protein (Negative) Urine Ketones (Negative) Urine Blood (Negative) Urine RBC (0-5) /hpf Hyaline Casts (0-2) /lpf Urine Mucus (None) /hpf
--- NOTE | 2024-03-14 09:44 | P.PN ---
Subjective Progress Note Date: 03/14/24 Mirtha Ponce is a 73-year-old female patient who initially presented to her PCP with complaints of slurring of speech patient was directed to come to ER for further evaluation. At this time patient is in bed sleeping not following commands or answering questions. Family at bedside history obtained through them and medical records. According to family patient was found to be having slurred speech patient did not want to come to ER at that time so was taken to PCP. Per family patient is a heavy smoker but denies any alcohol or drug use. Denies any recent illness. Additional medical history includes COPD, hypertension. Head CT completed showing right parietal lobe acute/subacute CVA. EKG completed showing sinus rhythm. Chest x-ray completed showing cardiomegaly with pulmonary vascular congestion correlate with serum BNP COPD changes. Lab work revealing troponin 0.379, 0.429 and 0.436, white blood cell 5.7, hemoglobin 15.4 creatinine 0.56 bun 14. At this time neurology services have been consulted MRI of the brain has been ordered CTA of the carotids ordered. Will order 2D echo and consult cardiology services. Due to patient's increasing altered mental status changes and concerns for respiratory status we will consult pulmonary services. Patient's BNP also elevated at 6490 will give 1 dose of IV Lasix. Current vital signs temp 97.9, heart rate 96, respiratory rate 18, blood pressure 100/59 with a pulse ox of 95% on nonrebreather. On 03/13/2024 patient was seen and examined on the medical floor she is alert and oriented x 3 in no apparent distress, she has a low-grade fever of 99.4 pulse 108 respiration 22 blood pressure 123/61 pulse ox 91% on 6 L nasal cannula, she has cough, with minimal sputum production she denies any chest pain or shortness of breath no nausea or vomiting no abdominal pain no diarrhea and no urinary symptoms. At this time will keep patient n.p.o. for possible aspiration, will start IV Zosyn and repeat chest x-ray, infectious disease con sultation was added, will continue with IV heparin due to elevated troponin levels, awaiting cardiology input. Neurology consult reviewed. On 03/14/2025 patient remains lethargic in the intensive care unit. Patient was placed on BiPAP. Patient also started on IV Zosyn for concerns of aspiration pneumonia patient not following commands at this time recommendations for possible Dobbhoff placement in order to administer oral medications. Neurology services are following MRI has been ordered but cannot be performed while patient is on BiPAP and heparin. Critical care services following infectious disease, cardiology and neurology services following. Current vital signs temp 98.1, heart rate 96, respiratory rate 27, blood pressure 119/69 with a pulse ox of 96% on BiPAP with an FiO2 of 45%. Family at bedside all questions answered Objective - Vital Signs Vital signs: Vital Signs Temp 98.1 F 03/14/24 08:00 Pulse 105 H 03/14/24 09:00 Resp 22 03/14/24 09:00 BP 121/70 03/14/24 09:00 Pulse Ox 96 03/14/24 09:00 FiO2 45 03/14/24 08:00 Intake & Output 03/13/24 03/14/24 03/14/24 18:59 06:59 18:59 Intake Total 220 635.577 40 Output Total 3140 910 60 Balance -2920 -274.423 -20 Weight 64.1 kg Intake: IV 220 460 40 0.9 100 260 40 Invasive Line 1 10 Invasive Line 2 10 Piperacillin-Tazobactam 3 100 200 .375 gm In Sodium Chloride 0.9% 100 ml @ 25 mls/hr IVPB Q8H [facility] Rx#: [id number] Intake, IV Titration 175.577 Amount Heparin Sod,Pork in 0.45% 175.577 NaCl 25,000 unit In 0.45 % NaCl 1 250ml.bag @ 12 UNITS/KG/HR 7.62 mls/hr IV .Q24H [facility] Rx#: [id number] Output: Urine 3140 910 60 Other: Voiding Method Indwelling Catheter Indwelling Catheter Indwelling Catheter - Exam Head normocephalic Neck supple Lungs clear to auscultation bilaterally no wheezing or crackles Heart regular rate and rhythm S1-S2, no rub or gallop Abdomen is soft nontender nondistended positive bowel sounds no hepatosplenomeg thao Extremities no edema Neuro alert and orientated to 0. Lethargic - Labs CBC & Chem 7: 03/14/24 03:58 03/14/24 03:58 Labs: Abnormal Lab Results - Last 24 Hours (Table) 03/13/24 03/13/24 03/13/24 Range/Units 09:40 09:40 09:40 RBC 5.68 H (3.80-5.40) m/uL Hct 51.3 H (34.0-46.0) % MCHC 28.9 L (31.0-37.0) g/dL Neutrophils # (Manual) 8.34 H (1.3-7.7) k/uL Lymphocytes # (1.0-4.8) k/uL Lymphocytes # (Manual) 0.09 L (1.0-4.8) k/uL APTT 55.4 H (22.0-30.0) sec D-Dimer (<0.60) mg/L FEU ABG pH (7.35-7.45) ABG pCO2 (35-45) mmHg ABG pO2 (83-108) mmHg ABG HCO3 (21-25) mmol/L ABG Total CO2 (19-24) mmol/L Sodium (137-145) mmol/L Potassium 5.2 H (3.5-5.1) mmol/L Chloride (98-107) mmol/L Carbon Dioxide 34 H (22-30) mmol/L BUN 25 H (7-17) mg/dL Glucose 149 H (74-99) mg/dL POC Glucose (mg/dL) (70-110) mg/dL Calcium (8.4-10.2) mg/dL Albumin 3.4 L (3.5-5.0) g/dL Urine Appearance (Clear) Urine Protein (Negative) Urine Ketones (Negative) Urine Blood (Negative) Urine RBC (0-5) /hpf Hyaline Casts (0-2) /lpf Urine Mucus (None) /hpf 03/13/24 03/13/24 03/13/24 Range/Units 11:35 13:29 13:30 RBC (3.80-5.40) m/uL Hct (34.0-46.0) % MCHC (31.0-37.0) g/dL Neutrophils # (Manual) (1.3-7.7) k/uL Lymphocytes # (1.0-4.8) k/uL Lymphocytes # (Manual) (1.0-4.8) k/uL APTT (22.0-30.0) sec D-Dimer (<0.60) mg/L FEU ABG pH 7.28 L (7.35-7.45) ABG pCO2 80 H* (35-45) mmHg ABG pO2 82 L (83-108) mmHg ABG HCO3 38 H (21-25) mmol/L ABG Total CO2 40 H (19-24) mmol/L Sodium (137-145) mmol/L Potassium (3.5-5.1) mmol/L Chloride (98-107) mmol/L Carbon Dioxide (22-30) mmol/L BUN (7-17) mg/dL Glucose (74-99) mg/dL POC Glucose (mg/dL) 147 H (70-110) mg/dL Calcium (8.4-10.2) mg/dL Albumin (3.5-5.0) g/dL Urine Appearance Turbid H (Clear) Urine Protein Trace H (Negative) Urine Ketones 1+ H (Negative) Urine Blood Large H (Negative) Urine RBC >182 H (0-5) /hpf Hyaline Casts 6 H (0-2) /lpf Urine Mucus Moderate H (None) /hpf 03/13/24 03/13/24 03/13/24 Range/Units 14:01 14:01 14:01 RBC 5.47 H (3.80-5.40) m/uL Hct 49.3 H (34.0-46.0) % MCHC 28.8 L (31.0-37.0) g/dL Neutrophils # (Manual) (1.3-7.7) k/uL Lymphocytes # 0.9 L (1.0-4.8) k/uL Lymphocytes # (Manual) (1.0-4.8) k/uL APTT (22.0-30.0) sec D-Dimer 1.03 H (<0.60) mg/L FEU ABG pH (7.35-7.45) ABG pCO2 (35-45) mmHg ABG pO2 (83-108) mmHg ABG HCO3 (21-25) mmol/L ABG Total CO2 (19-24) mmol/L Sodium 136 L (137-145) mmol/L Potassium 5.2 H (3.5-5.1) mmol/L Chloride (98-107) mmol/L Carbon Dioxide 37 H (22-30) mmol/L BUN 29 H (7-17) mg/dL Glucose 145 H (74-99) mg/dL POC Glucose (mg/dL) (70-110) mg/dL Calcium 8.3 L (8.4-10.2) mg/dL Albumin (3.5-5.0) g/dL Urine Appearance (Clear) Urine Protein (Negative) Urine Ketones (Negative) Urine Blood (Negative) Urine RBC (0-5) /hpf Hyaline Casts (0-2) /lpf Urine Mucus (None) /hpf 03/14/24 03/14/24 03/14/24 Range/Units 03:58 03:58 03:58 RBC 5.64 H (3.80-5.40) m/uL Hct 50.0 H (34.0-46.0) % MCHC 29.4 L (31.0-37.0) g/dL Neutrophils # (Manual) (1.3-7.7) k/uL Lymphocytes # 0.4 L (1.0-4.8) k/uL Lymphocytes # (Manual) (1.0-4.8) k/uL APTT 51.2 H (22.0-30.0) sec D-Dimer (<0.60) mg/L FEU ABG pH (7.35-7.45) ABG pCO2 (35-45) mmHg ABG pO2 (83-108) mmHg ABG HCO3 (21-25) mmol/L ABG Total CO2 (19-24) mmol/L Sodium (137-145) mmol/L Potassium (3.5-5.1) mmol/L Chloride 95 L (98-107) mmol/L Carbon Dioxide 37 H (22-30) mmol/L BUN 36 H (7-17) mg/dL Glucose 164 H (74-99) mg/dL POC Glucose (mg/dL) (70-110) mg/dL Calcium (8.4-10.2) mg/dL Albumin (3.5-5.0) g/dL Urine Appearance (Clear) Urine Protein (Negative) Urine Ketones (Negative) Urine Blood (Negative) Urine RBC (0-5) /hpf Hyaline Casts (0-2) /lpf Urine Mucus (None) /hpf Assessment and Plan Assessment: 1. Slurred speech and altered mental status changes likely secondary from CVA 2. Acute CHF exacerbation 3. Elevated troponins 4. Ongoing nicotine dependence greater than 1 pack/day 5. History of COPD 6. History of essential hypertension 7. Concerns of aspiration pneumonia patient started on IV Zosyn infectious disease service is consulted Neurology, cardiology and pulmonary services consulted 2D echo and MRI of the brain ordered Patient started on heparin drip Patient remains on IV Zosyn Patient currently on BiPAP Remains in the intensive care unit Repeat labs ordered PT and OT services consulted
[2024-03-14] MEDS ORDERED: DEXTROSE 50% SYRINGE 50 ML IVP PRN ×2 (09:45)
--- NOTE | 2024-03-14 10:03 | P.PN ---
Subjective Progress Note Date: 03/14/24 PROGRESS NOTE The patient is a 73-year-old female with history of diabetes, hypertension and hyperlipidemia who presented with change in mental status and have evidence of CVA. She had mild troponin elevation. She was becoming less responsive and more tachypneic. She was transferred to the ICU and placed on BiPAP. She continues to be in sinus mechanism and her blood pressure stable. She is not responding to verbal stimulation. She has no evidence of atrial fibrillation. Her urine output has been stable. Her echocardiogram showed a preserved systolic function. Medications: IV heparin, atorvastatin 40 mg daily, insulin, losartan 100 mg daily PHYSICAL EXAMINATION: Blood pressure 120/70 heart rate 90, on BiPAP, not following verbal stimulation or commands LUNGS: Clear to auscultation HEART: Regular rate and rhythm, S1, S2. No S3. Systolic ejection murmur ABDOMEN: Soft, nontender, no organomegaly EXTREMETIES: No edema LAB: Hemoglobin 14.7, potassium 5.1, BUN 36, creatinine 0.8 IMPRESSION: 1. CVA, patient in sinus mechanism with no evidence of atrial fibrillation 2. Mild troponin elevation appears to be type II event 3. Respiratory failure, probably related to the stroke and COPD 4. History of COPD 5. History of hypertension 6. History of hyperlipidemia PLAN: 1. Stop IV heparin 2. Continue other treatment 3. Treatment of COPD per pulmonary 4. Depending on her progress further recommendations will be made Objective - Vital Signs Vital signs: Vital Signs Temp 98.1 F 03/14/24 08:00 Pulse 105 H 03/14/24 09:00 Resp 22 03/14/24 09:00 BP 121/70 03/14/24 09:00 Pulse Ox 96 03/14/24 09:00 FiO2 45 03/14/24 08:00 Intake & Output 03/13/24 03/14/24 03/14/24 18:59 06:59 18:59 Intake Total 220 635.577 40 Output Total 3140 910 60 Balance -2920 -274.423 -20 Weight 64.1 kg Intake: IV 220 460 40 0.9 100 260 40 Invasive Line 1 10 Invasive Line 2 10 Piperacillin-Tazobactam 3 100 200 .375 gm In Sodium Chloride 0.9% 100 ml @ 25 mls/hr IVPB Q8H [facility] Rx#: [id number] Intake, IV Titration 175.577 Amount Heparin Sod,Pork in 0.45% 175.577 NaCl 25,000 unit In 0.45 % NaCl 1 250ml.bag @ 12 UNITS/KG/HR 7.62 mls/hr IV .Q24H [facility] Rx#: [id number] Output: Urine 3140 910 60 Other: Voiding Method Indwelling Catheter Indwelling Catheter Indwelling Catheter - Labs CBC & Chem 7: 03/14/24 03:58 03/14/24 03:58 Labs: Abnormal Lab Results - Last 24 Hours (Table) 03/13/24 03/13/24 03/13/24 Range/Units 09:40 09:40 09:40 RBC 5.68 H (3.80-5.40) m/uL Hct 51.3 H (34.0-46.0) % MCHC 28.9 L (31.0-37.0) g/dL Neutrophils # (Manual) 8.34 H (1.3-7.7) k/uL Lymphocytes # (1.0-4.8) k/uL Lymphocytes # (Manual) 0.09 L (1.0-4.8) k/uL APTT 55.4 H (22.0-30.0) sec D-Dimer (<0.60) mg/L FEU ABG pH (7.35-7.45) ABG pCO2 (35-45) mmHg ABG pO2 (83-108) mmHg ABG HCO3 (21-25) mmol/L ABG Total CO2 (19-24) mmol/L Sodium (137-145) mmol/L Potassium 5.2 H (3.5-5.1) mmol/L Chloride (98-107) mmol/L Carbon Dioxide 34 H (22-30) mmol/L BUN 25 H (7-17) mg/dL Glucose 149 H (74-99) mg/dL POC Glucose (mg/dL) (70-110) mg/dL Calcium (8.4-10.2) mg/dL Albumin 3.4 L (3.5-5.0) g/dL Urine Appearance (Clear) Urine Protein (Negative) Urine Ketones (Negative) Urine Blood (Negative) Urine RBC (0-5) /hpf Hyaline Casts (0-2) /lpf Urine Mucus (None) /hpf 11/03/13/24 03/13/24 Range/Units 11:35 13:29 13:30 RBC (3.80-5.40) m/uL Hct (34.0-46.0) % MCHC (31.0-37.0) g/dL Neutrophils # (Manual) (1.3-7.7) k/uL Lymphocytes # (1.0-4.8) k/uL Lymphocytes # (Manual) (1.0-4.8) k/uL APTT (22.0-30.0) sec D-Dimer (<0.60) mg/L FEU ABG pH 7.28 L (7.35-7.45) ABG pCO2 80 H* (35-45) mmHg ABG pO2 82 L (83-108) mmHg ABG HCO3 38 H (21-25) mmol/L ABG Total CO2 40 H (19-24) mmol/L Sodium (137-145) mmol/L Potassium (3.5-5.1) mmol/L Chloride (98-107) mmol/L Carbon Dioxide (22-30) mmol/L BUN (7-17) mg/dL Glucose (74-99) mg/dL POC Glucose (mg/dL) 147 H (70-110) mg/dL Calcium (8.4-10.2) mg/dL Albumin (3.5-5.0) g/dL Urine Appearance Turbid H (Clear) Urine Protein Trace H (Negative) Urine Ketones 1+ H (Negative) Urine Blood Large H (Negative) Urine RBC >182 H (0-5) /hpf Hyaline Casts 6 H (0-2) /lpf Urine Mucus Moderate H (None) /hpf 03/13/24 03/13/24 03/13/24 Range/Units 14:01 14:01 14:01 RBC 5.47 H (3.80-5.40) m/uL Hct 49.3 H (34.0-46.0) % MCHC 28.8 L (31.0-37.0) g/dL Neutrophils # (Manual) (1.3-7.7) k/uL Lymphocytes # 0.9 L (1.0-4.8) k/uL Lymphocytes # (Manual) (1.0-4.8) k/uL APTT (22.0-30.0) sec D-Dimer 1.03 H (<0.60) mg/L FEU ABG pH (7.35-7.45) ABG pCO2 (35-45) mmHg ABG pO2 (83-108) mmHg ABG HCO3 (21-25) mmol/L ABG Total CO2 (19-24) mmol/L Sodium 136 L (137-145) mmol/L Potassium 5.2 H (3.5-5.1) mmol/L Chloride (98-107) mmol/L Carbon Dioxide 37 H (22-30) mmol/L BUN 29 H (7-17) mg/dL Glucose 145 H (74-99) mg/dL POC Glucose (mg/dL) (70-110) mg/dL Calcium 8.3 L (8.4-10.2) mg/dL Albumin (3.5-5.0) g/dL Urine Appearance (Clear) Urine Protein (Negative) Urine Ketones (Negative) Urine Blood (Negative) Urine RBC (0-5) /hpf Hyaline Casts (0-2) /lpf Urine Mucus (None) /hpf 03/14/24 03/14/24 03/14/24 Range/Units 03:58 03:58 03:58 RBC 5.64 H (3.80-5.40) m/uL Hct 50.0 H (34.0-46.0) % MCHC 29.4 L (31.0-37.0) g/dL Neutrophils # (Manual) (1.3-7.7) k/uL Lymphocytes # 0.4 L (1.0-4.8) k/uL Lymphocytes # (Manual) (1.0-4.8) k/uL APTT 51.2 H (22.0-30.0) sec D-Dimer (<0.60) mg/L FEU ABG pH (7.35-7.45) ABG pCO2 (35-45) mmHg ABG pO2 (83-108) mmHg ABG HCO3 (21-25) mmol/L ABG Total CO2 (19-24) mmol/L Sodium (137-145) mmol/L Potassium (3.5-5.1) mmol/L Chloride 95 L (98-107) mmol/L Carbon Dioxide 37 H (22-30) mmol/L BUN 36 H (7-17) mg/dL Glucose 164 H (74-99) mg/dL POC Glucose (mg/dL) (70-110) mg/dL Calcium (8.4-10.2) mg/dL Albumin (3.5-5.0) g/dL Urine Appearance (Clear) Urine Protein (Negative) Urine Ketones (Negative) Urine Blood (Negative) Urine RBC (0-5) /hpf Hyaline Casts (0-2) /lpf Urine Mucus (None) /hpf
[2024-03-14 10:52] LABS: ABG Base Excess 13.3 mmol/L; ABG PH 7.31 (7.35-7.45); ABG PO2 93 mmHg (83-108); ABG TCO2 47 mmol/L (19-24); Allen Test Performed? Yes
[2024-03-14 10:54] LABS: ABG HCO3 44 mmol/L (21-25); ABG PCO2 89 mmHg (35-45)
[2024-03-14 11:37] LABS: Glucose,Whole Blood 157 mg/dL (70-110)
[2024-03-14] MEDS: INSULIN ASPART (NovoLOG) 100 UNIT/ML VIAL SQ SCH (11:38)
[2024-03-14] MEDS: SODIUM CHLORIDE 0.9% 1,000 ML IV SCH (13:03)
--- NOTE | 2024-03-14 13:15 | CT ---
EXAMINATION TYPE: CT brain wo con DATE OF EXAM: 03/14/2024 COMPARISON: 03/11/2024 CLINICAL INDICATION: Female, 73 years old with history of Headache; PHH, headache, decline from yeste rday, h/o stroke CT DLP: 1139.4 mGycm Automated exposure control for dose reduction was used. FINDINGS: The ventricles, basal cisterns and sulci over the convexities are within normal limits and there is n o mass effect or shift of midline structures. The focal area of decreased density in the left posterior frontal white matter and cortex has increas ed in the interval consistent with a subacute infarct. There is additional area of decreased density in the subcortical white matter of the left parietal lobe consistent with a subacute left parietal wh ite matter infarct. A small focal area of decreased density in the posterior right temporal lobe is s table and is consistent with a subacute infarct. There is no acute intra or extra-axial hemorrhage. The posterior fossa is grossly normal. The intraorbital contents appear normal and symmetric. Visualized paranasal sinuses and mastoid air cells are well aerated. IMPRESSION: Multiple subacute infarcts with mild progression as described above. No acute bleed or mass effect. IMPRESSION: [facility], , 03/14/2024 1:13 PM
--- NOTE | 2024-03-14 14:16 | P.PN ---
Subjective Progress Note Date: 03/14/24 This is a 73-year-old female patient, a chronic smoker smokes around 1.5 packs of cigarettes on a daily basis, known to have COPD, nevertheless, does not utilize any form of respiratory medications or inhalers on outpatient basis. Denies having any home O2. Most of the information was obtained from the son at the bedside who also happens to be a poor historian. The patient came into the hospital because of slurred speech and she was not following commands and she was altered. The patient had no fever. No headaches. No neck stiffness. CAT scan of the head showed a right parietal lobe acute/subacute infarcts. She was in normal sinus rhythm. At the same time, the patient was found to have elevated troponins of 0.3, 0.4 and 0.4 respectively x 3. The white cell count was at 5.7 with a hemoglobin 15.4 and the patient had a normal creatinine of 0.56 with a BUN of 14. Neurology was involved in her case and the patient was given a CTA of the brain that showed no evidence of any dissection of the cervical and the vertebral arteries and there was no evidence of any significant stenosis in the carotids or in the intracranial arteries. There was however an area of atelectasis in the left upper lobe and this is based on the partial visualization of the lung windows done on the CAT scan of the head and neck. The patient is quite hypoxic and she is currently on 5 L of oxygen by nasal cannula with pulse ox 92%. Based on those findings, pulmonary consultation was requested. Her proBNP level is 6490. She is currently on IV heparin based on elevated troponins. She is also on aspirin. Cardiology is also on the case. Echocardiogram was done and the patient was found to have a normal LV function, severe RV dilatation and evidence of severe pulmonary hypertension. 03/13/2024, the patient is being seen for a follow-up. The patient is more lethargic compared to yesterday. The time of my evaluation, the patient was also tachypneic and had diminished level of consciousness. Her respiratory efforts were becoming more labored. Based on that, a blood gas was done while the patient was on oxygen at 5 L and the patient was found to have significant respiratory acidosis and there was evidence of an acute on top of chronic hypercapnic respiratory failure with a pH of 7.28 and pCO2 of 80 and pO2 of 82. Based on that, made recommendations for this patient to be transferred to the intensive care unit and started on a BiPAP. She is on DuoNeb the regiment [id number]. Will start IV Solu-Medrol. Will continue IV Zosyn. I requested a CT angiogram of the chest and this was not completed as the patient was not found to be stable enough to be transferred for a CTA of the chest. Chest x-ray from today shows cardiomegaly and pulm venous congestion and the patient will be given a dose of Lasix. After transfer to the ICU, the patient was given a Luevano catheter and immediately there was a total of 2 L of urine output obtained. Patient was also seen by neurology. The patient is quite lethargic. She is not hypercapnic respiratory failure. CAT scan of the brain showed a right parietal as well as left precentral gyrus infarct. She is not conversing at this point in time. She withdraws to painful stimulation. No seizure activity has been noted. Patient remains on IV heparin. MRI of the brain to be obtained later stage. On 03/14/2024, the patient is still on a BiPAP at a pressure of 12/5 with an FiO2 of 45%. Mental status is still impaired and the patient is quite lethargic and encephalopathic. She is not responding to any verbal stimulation. She grimaces only to deep painful stimulation. Her level of aggressiveness is quite impaired at this point in time. Based on that, repeat CAT scan of the brain was ordered and the patient was found to have multiple subacute infarct with mild progression without evidence of any bleeding. There was focal areas of decreased density in the left posterior frontal white matter and cortex consistent with subacute infarct. There is also changes involving the subcortical white matter of the left parietal lobe and right posterior temporal lobe. All consistent with subacute infarct. The patient is currently on aspirin. The patient remains on bronchodilators. The patient remains on steroids. The patient had a CT of the chest yesterday that showed no evidence of any pulmonary embolism. The previous described consolidation left upper lobe was not seen. There is cardiomegaly and small bilateral pleural effusion and interlobular septal thickening suggestive of mild interstitial edema. There is some atelectatic changes in lung bases bilaterally and dilated pulmonary arteries. A follow-up blood gas was also done that showed a pH of 7.31 with a pCO2 of 89 and pO2 of 93. The white cell count is 6.1 with a heme of 14.7 and a platelet count of 274. Sodium is at 138, potassium is at 5.1. BUN 36 with a creatinine of 0.8. Potassium level is at 5.1. She remains NPO. Breathing remains somewhat labored and the patient is generating approximately 300 cc of tidal volume while being on the BiPAP with a respirate of 28 and she carries a high minute ventilation. Echocardiogram was done on 03/12/2024 and it showed a preserved LV function, mild to moderate tricuspid regurgitation and severe pulmonary pretension. No evidence of any PFO or intracardiac shunts. Objective - Vital Signs Vital signs: Vital Signs Temp 98.1 F 03/14/24 08:00 Pulse 105 H 03/14/24 09:00 Resp 22 03/14/24 09:00 BP 121/70 03/14/24 09:00 Pulse Ox 96 03/14/24 09:00 FiO2 45 03/14/24 08:00 Intake & Output 03/13/24 03/14/24 03/14/24 18:59 06:59 18:59 Intake Total 220 635.577 40 Output Total 3140 910 60 Balance -2920 -274.423 -20 Weight 64.1 kg Intake: IV 220 460 40 0.9 100 260 40 Invasive Line 1 10 Invasive Line 2 10 Piperacillin-Tazobactam 3 100 200 .375 gm In Sodium Chloride 0.9% 100 ml @ 25 mls/hr IVPB Q8H [facility] Rx#: [id number] Intake, IV Titration 175.577 Amount Heparin Sod,Pork in 0.45% 175.577 NaCl 25,000 unit In 0.45 % NaCl 1 250ml.bag @ 12 UNITS/KG/HR 7.62 mls/hr IV .Q24H [facility] Rx#: [id number] Output: Urine 3140 910 60 Other: Voiding Method Indwelling Catheter Indwelling Catheter Indwelling Catheter - Exam The patient appeared well short of breath, lethargic, quite obtunded. Vital signs as documented. The breathing is labored and there is significant respiratory distress and the patient is still on BiPAP at a pressure of 12/5 with an FiO2 of 45%. Head exam is unremarkable. No scleral icterus or corneal arcus noted. Neck is without jugular venous distension, thyromegaly, or carotid bruits. Carotid upstrokes are brisk bilaterally. Lungs diminished breath sounds bilaterally Cardiac exam reveals the PMI to be normally sized and situated. Rhythm is regular. First and second heart sounds normal. No murmurs, rubs or gallops. Abdominal exam reveals normal bowel sounds, no masses, no organomegaly and no aortic enlargement. Extremities are nonedematous and both femoral and pedal pulses are normal. Examination of the skin revealed no evidence of significant rashes, suspicious appearing nevi or other concerning lesions. Neurologically, the patient is quite sleepy and lethargic. According to the son at the bedside, she was able to converse with him earlier. Pupils are equal reactive to light. No facial asymmetry. Speech could not be assessed. Strength and motor function seems to be symmetrical bilaterally. No Babinski. Sensory functions cannot be accurately assessed. Neurologic function essentially unchanged compared to yesterday. - Labs CBC & Chem 7: 03/14/24 03:58 03/14/24 03:58 Labs: Abnormal Lab Results - Last 24 Hours (Table) 03/13/24 03/13/24 03/13/24 Range/Units 09:40 09:40 09:40 RBC 5.68 H (3.80-5.40) m/uL Hct 51.3 H (34.0-46.0) % MCHC 28.9 L (31.0-37.0) g/dL Neutrophils # (Manual) 8.34 H (1.3-7.7) k/uL Lymphocytes # (1.0-4.8) k/uL Lymphocytes # (Manual) 0.09 L (1.0-4.8) k/uL APTT 55.4 H (22.0-30.0) sec D-Dimer (<0.60) mg/L FEU ABG pH (7.35-7.45) ABG pCO2 (35-45) mmHg ABG pO2 (83-108) mmHg ABG HCO3 (21-25) mmol/L ABG Total CO2 (19-24) mmol/L Sodium (137-145) mmol/L Potassium 5.2 H (3.5-5.1) mmol/L Chloride (98-107) mmol/L Carbon Dioxide 34 H (22-30) mmol/L BUN 25 H (7-17) mg/dL Glucose 149 H (74-99) mg/dL POC Glucose (mg/dL) (70-110) mg/dL Calcium (8.4-10.2) mg/dL Albumin 3.4 L (3.5-5.0) g/dL Urine Appearance (Clear) Urine Protein (Negative) Urine Ketones (Negative) Urine Blood (Negative) Urine RBC (0-5) /hpf Hyaline Casts (0-2) /lpf Urine Mucus (None) /hpf 03/13/24 03/13/24 03/13/24 Range/Units 11:35 13:29 13:30 RBC (3.80-5.40) m/uL Hct (34.0-46.0) % MCHC (31.0-37.0) g/dL Neutrophils # (Manual) (1.3-7.7) k/uL Lymphocytes # (1.0-4.8) k/uL Lymphocytes # (Manual) (1.0-4.8) k/uL APTT (22.0-30.0) sec D-Dimer (<0.60) mg/L FEU ABG pH 7.28 L (7.35-7.45) ABG pCO2 80 H* (35-45) mmHg ABG pO2 82 L (83-108) mmHg ABG HCO3 38 H (21-25) mmol/L ABG Total CO2 40 H (19-24) mmol/L Sodium (137-145) mmol/L Potassium (3.5-5.1) mmol/L Chloride (98-107) mmol/L Carbon Dioxide (22-30) mmol/L BUN (7-17) mg/dL Glucose (74-99) mg/dL POC Glucose (mg/dL) 147 H (70-110) mg/dL Calcium (8.4-10.2) mg/dL Albumin (3.5-5.0) g/dL Urine Appearance Turbid H (Clear) Urine Protein Trace H (Negative) Urine Ketones 1+ H (Negative) Urine Blood Large H (Negative) Urine RBC >182 H (0-5) /hpf Hyaline Casts 6 H (0-2) /lpf Urine Mucus Moderate H (None) /hpf 03/13/24 03/13/24 03/13/24 Range/Units 14:01 14:01 14:01 RBC 5.47 H (3.80-5.40) m/uL Hct 49.3 H (34.0-46.0) % MCHC 28.8 L (31.0-37.0) g/dL Neutrophils # (Manual) (1.3-7.7) k/uL Lymphocytes # 0.9 L (1.0-4.8) k/uL Lymphocytes # (Manual) (1.0-4.8) k/uL APTT (22.0-30.0) sec D-Dimer 1.03 H (<0.60) mg/L FEU ABG pH (7.35-7.45) ABG pCO2 (35-45) mmHg ABG pO2 (83-108) mmHg ABG HCO3 (21-25) mmol/L ABG Total CO2 (19-24) mmol/L Sodium 136 L (137-145) mmol/L Potassium 5.2 H (3.5-5.1) mmol/L Chloride (98-107) mmol/L Carbon Dioxide 37 H (22-30) mmol/L BUN 29 H (7-17) mg/dL Glucose 145 H (74-99) mg/dL POC Glucose (mg/dL) (70-110) mg/dL Calcium 8.3 L (8.4-10.2) mg/dL Albumin (3.5-5.0) g/dL Urine Appearance (Clear) Urine Protein (Negative) Urine Ketones (Negative) Urine Blood (Negative) Urine RBC (0-5) /hpf Hyaline Casts (0-2) /lpf Urine Mucus (None) /hpf 03/14/24 03/14/24 03/14/24 Range/Units 03:58 03:58 03:58 RBC 5.64 H (3.80-5.40) m/uL Hct 50.0 H (34.0-46.0) % MCHC 29.4 L (31.0-37.0) g/dL Neutrophils # (Manual) (1.3-7.7) k/uL Lymphocytes # 0.4 L (1.0-4.8) k/uL Lymphocytes # (Manual) (1.0-4.8) k/uL APTT 51.2 H (22.0-30.0) sec D-Dimer (<0.60) mg/L FEU ABG pH (7.35-7.45) ABG pCO2 (35-45) mmHg ABG pO2 (83-108) mmHg ABG HCO3 (21-25) mmol/L ABG Total CO2 (19-24) mmol/L Sodium (137-145) mmol/L Potassium (3.5-5.1) mmol/L Chloride 95 L (98-107) mmol/L Carbon Dioxide 37 H (22-30) mmol/L BUN 36 H (7-17) mg/dL Glucose 164 H (74-99) mg/dL POC Glucose (mg/dL) (70-110) mg/dL Calcium (8.4-10.2) mg/dL Albumin (3.5-5.0) g/dL Urine Appearance (Clear) Urine Protein (Negative) Urine Ketones (Negative) Urine Blood (Negative) Urine RBC (0-5) /hpf Hyaline Casts (0-2) /lpf Urine Mucus (None) /hpf Assessment and Plan Plan: Acute CVA. Patient presented with altered mentation and slurred speech.Initial CAT scan of the brain showed evidence of a acute/subacute stroke involving the right parietal lobe. CT angiogram of the brain showed no evidence of any significant stenosis or dissection involving the carotids and the intracranial vessels. The patient remains to have a l diminished level of consciousness and she is unresponsive to verbal and she grimaces only to deep painful stimulation.. Her blood gas, there is also a component of an acute on top of chronic respiratory acidosis. A repeat CAT scan of the brain was done and it was consistent with Multiple subacute infarct with mild progression with areas of decreased density involving the left posterior frontal lobe, left parietal lobe, and right posterior temporal lobe consistent with subacute infarct. Rule out embolic phenomena. COPD with likely chronic hypoxic and hypercapnic respiratory failure, please refer to the blood gases done this morning. There is a component of an acute on top of chronic hypercapnic respiratory failure, the patient remains on a BiPAP and the blood gases still showing evidence of hypercapnic respiratory failure Chronic hypoxic respiratory failure Acute on top of chronic hypercapnic respiratory failure due to COPD exacerbation. CT of the chest shows no evidence of any pulm embolism, some increased pulm vascular markings bilaterally along with cardiomegaly and evidence of pulm hypertension. Chronic smoker and the patient smokes around 1.5 packs of cigarettes on a daily basis Severe pulmonary hypertension, this could be related to chronic hypoxemia and group 3 pulmonary hypertension. The baseline oxygenation status is not known. Nevertheless the patient is known to have COPD and possibly chronic hypoxemic respiratory failure. Obviously, pulmonary embolism needs to be also ruled out in the setting of a severe pulmonary pretension with abnormal troponins. Acute on chronic hypoxic respiratory failure under investigation Abnormal troponins, currently on IV heparin and EKG showing normal sinus rhythm without any acute ST segment elevation. There is evidence of old anteroseptal infarct based on EKG findings. Hypertension Hyperlipidemia Plan Transfer the patient to the ICU event start the patient on BiPAP initially press ure of 12/5 and titrate oxygen flow to maintain saturation above 90%, currently at 45% IV heparin has been discontinued Continue aspirin CT scan of the brain was noted and is consistent with multiple subacute infarcts and the patient would benefit from a BRIAN at a later stage. Cardiac rhythm remains sinus. Will check Doppler of the lower extremities rule out DVT and paradoxic emboli to the brain Check CB Check ANCA levels Check D-dimers CT of the brain was noted and there is no evidence of any pulmonary embolism. No evidence of any atelectasis or consolidation in the left upper lobe. Continue DuoNeb nebulized treatments [id number] Continue IV Solu-Medrol Continue IV Zosyn MRI of the brain once more stable Monitor mental status Will continue to follow Condition is critical and this evaluation was done more than 30 minutes. Case was discussed with the son at the bedside. Time with Patient: Greater than 30
[2024-03-14] MEDS: SODIUM CHLORIDE 0.9% 500 ML 500 ML IV ONE (14:20)
--- NOTE | 2024-03-14 14:41 | P.PN ---
Subjective Progress Note Date: 03/14/24 Principal diagnosis: Reason for follow-up is pneumonia Patient is a 73-year-old female with a past medical history significant for COPD hypertension hyperlipidemia patient was brought into the hospital for evaluation of mental status changes and was being worked up for stroke did have worsening of respiratory status concerning for aspiration prompted this consultation. On today's evaluation that is 03/14/2024,the patient remains to be afebrile, patient is on BiPAP with FiO2 45% mentation remains to be show as the patient not waking up as reported by the nursing staff no vomiting or diarrhea has been reported. Patient white count 6.1 creatinine 0.[address] of the brain multiple subacute infarcts with mild progression no blood loss also have a CT angiogram of the chest yesterday which did shows patchy consolidative opacity concerning for pneumonia Objective - Vital Signs Vital signs: Vital Signs Temp 98.1 F 03/14/24 08:00 Pulse 102 H 03/14/24 10:30 Resp 31 H 03/14/24 10:30 BP 121/69 03/14/24 10:30 Pulse Ox 97 03/14/24 10:30 FiO2 45 03/14/24 11:13 Intake & Output 03/13/24 03/14/24 03/14/24 18:59 06:59 18:59 Intake Total 220 635.577 60 Output Total 3140 910 85 Balance -2920 -274.423 -25 Weight 64.1 kg Intake: IV 220 460 60 0.9 100 260 60 Invasive Line 1 10 Invasive Line 2 10 Piperacillin-Tazobactam 3 100 200 .375 gm In Sodium Chloride 0.9% 100 ml @ 25 mls/hr IVPB Q8H [facility] Rx#: [id number] Intake, IV Titration 175.577 Amount Heparin Sod,Pork in 0.45% 175.577 NaCl 25,000 unit In 0.45 % NaCl 1 250ml.bag @ 12 UNITS/KG/HR 7.62 mls/hr IV .Q24H [facility] Rx#: [id number] Output: Urine 3140 910 85 Other: Voiding Method Indwelling Catheter Indwelling Catheter Indwelling Catheter - Exam GENERAL DESCRIPTION: An elderly female lying in bed in no distress RESPIRATORY SYSTEM: Unlabored breathing , decreased breath sounds at bases HEART: S1 S2 regular rate and rhythm , ABDOMEN: Soft , no tenderness EXTREMITIES: No edema feet - Labs CBC & Chem 7: 03/14/24 03:58 03/14/24 03:58 Labs: Abnormal Lab Results - Last 24 Hours (Table) 03/13/24 03/13/24 03/13/24 Range/Units 11:35 13:29 13:30 RBC (3.80-5.40) m/uL Hct (34.0-46.0) % MCHC (31.0-37.0) g/dL Lymphocytes # (1.0-4.8) k/uL APTT (22.0-30.0) sec D-Dimer (<0.60) mg/L FEU ABG pH 7.28 L (7.35-7.45) ABG pCO2 80 H* (35-45) mmHg ABG pO2 82 L (83-108) mmHg ABG HCO3 38 H (21-25) mmol/L ABG Total CO2 40 H (19-24) mmol/L Sodium (137-145) mmol/L Potassium (3.5-5.1) mmol/L Chloride (98-107) mmol/L Carbon Dioxide (22-30) mmol/L BUN (7-17) mg/dL Glucose (74-99) mg/dL POC Glucose (mg/dL) 147 H (70-110) mg/dL Calcium (8.4-10.2) mg/dL Urine Appearance Turbid H (Clear) Urine Protein Trace H (Negative) Urine Ketones 1+ H (Negative) Urine Blood Large H (Negative) Urine RBC >182 H (0-5) /hpf Hyaline Casts 6 H (0-2) /lpf Urine Mucus Moderate H (None) /hpf 03/13/24 03/13/24 03/13/24 Range/Units 14:01 14:01 14:01 RBC 5.47 H (3.80-5.40) m/uL Hct 49.3 H (34.0-46.0) % MCHC 28.8 L (31.0-37.0) g/dL Lymphocytes # 0.9 L (1.0-4.8) k/uL APTT (22.0-30.0) sec D-Dimer 1.03 H (<0.60) mg/L FEU ABG pH (7.35-7.45) ABG pCO2 (35-45) mmHg ABG pO2 (83-108) mmHg ABG HCO3 (21-25) mmol/L ABG Total CO2 (19-24) mmol/L Sodium 136 L (137-145) mmol/L Potassium 5.2 H (3.5-5.1) mmol/L Chloride (98-107) mmol/L Carbon Dioxide 37 H (22-30) mmol/L BUN 29 H (7-17) mg/dL Glucose 145 H (74-99) mg/dL POC Glucose (mg/dL) (70-110) mg/dL Calcium 8.3 L (8.4-10.2) mg/dL Urine Appearance (Clear) Urine Protein (Negative) Urine Ketones (Negative) Urine Blood (Negative) Urine RBC (0-5) /hpf Hyaline Casts (0-2) /lpf Urine Mucus (None) /hpf 03/14/24 03/14/24 03/14/24 Range/Units 03:58 03:58 03:58 RBC 5.64 H (3.80-5.40) m/uL Hct 50.0 H (34.0-46.0) % MCHC 29.4 L (31.0-37.0) g/dL Lymphocytes # 0.4 L (1.0-4.8) k/uL APTT 51.2 H (22.0-30.0) sec D-Dimer (<0.60) mg/L FEU ABG pH (7.35-7.45) ABG pCO2 (35-45) mmHg ABG pO2 (83-108) mmHg ABG HCO3 (21-25) mmol/L ABG Total CO2 (19-24) mmol/L Sodium (137-145) mmol/L Potassium (3.5-5.1) mmol/L Chloride 95 L (98-107) mmol/L Carbon Dioxide 37 H (22-30) mmol/L BUN 36 H (7-17) mg/dL Glucose 164 H (74-99) mg/dL POC Glucose (mg/dL) (70-110) mg/dL Calcium (8.4-10.2) mg/dL Urine Appearance (Clear) Urine Protein (Negative) Urine Ketones (Negative) Urine Blood (Negative) Urine RBC (0-5) /hpf Hyaline Casts (0-2) /lpf Urine Mucus (None) /hpf 03/14/24 Range/Units 10:50 RBC (3.80-5.40) m/uL Hct (34.0-46.0) % MCHC (31.0-37.0) g/dL Lymphocytes # (1.0-4.8) k/uL APTT (22.0-30.0) sec D-Dimer (<0.60) mg/L FEU ABG pH 7.31 L (7.35-7.45) ABG pCO2 89 H* (35-45) mmHg ABG pO2 (83-108) mmHg ABG HCO3 44 H* (21-25) mmol/L ABG Total CO2 47 H (19-24) mmol/L Sodium (137-145) mmol/L Potassium (3.5-5.1) mmol/L Chloride (98-107) mmol/L Carbon Dioxide (22-30) mmol/L BUN (7-17) mg/dL Glucose (74-99) mg/dL POC Glucose (mg/dL) (70-110) mg/dL Calcium (8.4-10.2) mg/dL Urine Appearance (Clear) Urine Protein (Negative) Urine Ketones (Negative) Urine Blood (Negative) Urine RBC (0-5) /hpf Hyaline Casts (0-2) /lpf Urine Mucus (None) /hpf Assessment and Plan (1) Aspiration pneumonia Current Visit: Yes Status: Acute Code(s): J69.0 - PNEUMONITIS DUE TO INHALATION OF FOOD AND VOMIT SNOMED Code(s): 317266409 Plan: 1patient with worsening respiratory status and this patient initially brought into the hospital with slurred speech and being worked up for a CVA with worsening of respiratory status requiring BiPAP and a question of possible aspiration. 2patient did have CT angiogram of the chest shows consolidation concerning for pneumonia possible aspiration repeat CT of the brain concerning for subacute infarct with some progression neurology is following the patient 3patient to continue Zosyn 3.375 g every 8 hours and monitor clinical course closely Dictation was produced using [employer] dictation software. please excuse any grammatical, word or spelling errors. Time with Patient: Less than 30
[2024-03-14] MEDS: HEPARIN SODIUM,PORCINE 5,000 UNIT/ML 1 ML VIAL SQ SCH (15:26)
[2024-03-14] MEDS: HEPARIN SODIUM 1,000 UN/ML (10ML VL) IV ONE (15:56)
[2024-03-14] MEDS: HEPARIN SOD,PORK IN 0.45% NACL 25,000 UNIT in 0.45% NACL 1 250ML.BAG IV SCH (15:57)
[2024-03-14] MEDS: ASPIRIN 300 MG SUPP RECTAL SCH (16:02)
[2024-03-14 17:36] LABS: Glucose,Whole Blood 152 mg/dL (70-110)
[2024-03-14] MEDS: DEXTROSE 5% IN WATER 100 ML with AMIODARONE 150 MG IV ONE (18:57)
[2024-03-14] MEDS: AMIODARONE 360 MG in DEXTROSE 5% IN WATER 200 ML IV ONE (19:10)
[2024-03-14] MEDS: DILTIAZEM DRIP BOLUS FROM BAG 1 MG SOLN IV STA (20:10)
[2024-03-14] MEDS: DILTIAZEM 125 MG in SODIUM CHLORIDE 0.9% 100 ML IV SCH (20:12)
[2024-03-14 23:42] LABS: Glucose,Whole Blood 181 mg/dL (70-110)
[2024-03-15] MEDS: AMIODARONE 450 MG in DEXTROSE 5% IN WATER 250 ML IV SCH (01:58)
[2024-03-15 04:18] LABS: HCT 49.2 % (34.0-46.0); HGB 13.8 gm/dL (11.4-16.0); Hypochromasia Marked; MCH 25.6 pg (25.0-35.0); MCHC 28.2 g/dL (31.0-37.0); MCV 90.9 fL (80.0-100.0); Mean Platelet Volume 7.6; Platelet Count 249 k/uL (150-450); RBC 5.41 m/uL (3.80-5.40); RDW 15.1 % (11.5-15.5); WBC 8.7 k/uL (3.8-10.6)
[2024-03-15 04:34] LABS: ALT 13 U/L (4-34); AST 19 U/L (14-36); African American GFR (CKD) >90 (>60 ml/min/1.73 sqM); Albumin 3.2 g/dL (3.5-5.0); Alkaline Phosphatase 52 U/L (38-126); Blood Urea Nitrogen 43 mg/dL (7-17); Chloride 101 mmol/L (98-107); Glucose 170 mg/dL (74-99); Non-African American GFR(CKD) 86 (>60 ml/min/1.73 sqM); Potassium 5.1 mmol/L (3.5-5.1); Sodium 140 mmol/L (137-145); Total Bilirubin 0.5 mg/dL (0.2-1.3); Total Protein 6.2 g/dL (6.3-8.2)
[2024-03-15 04:40] LABS: Anion Gap 1 mmol/L; Carbon Dioxide 38 mmol/L (22-30)
[2024-03-15 06:04] LABS: Glucose,Whole Blood 149 mg/dL (70-110)
[2024-03-15 06:18] LABS: Lymphocytes # (M) 0.44 k/uL (1.0-4.8); Monocytes # (M) 0.09 k/uL (0-1.0); Neutrophils # (M) 8.18 k/uL (1.3-7.7); Neutrophils % (M) 94 %; Nucleated Red Blood Cells 0 /100 WBC (0-0); Total Cells Counted 100
[2024-03-15 06:20] LABS: Tear Drop Cells Present
[2024-03-15 06:21] LABS: RBC Fragments Present
--- NOTE | 2024-03-15 07:11 | XR ---
EXAMINATION TYPE: XR chest 1V DATE OF EXAM: 03/15/2024 COMPARISON: 03/14/2024 CLINICAL INDICATION: Female, 73 years old with history of increased O2 demands; TECHNIQUE: Single frontal view of the chest is obtained. FINDINGS: The diffuse fine interstitial infiltrates are stable and could reflect interstitial edema or chronic interstitial changes. The heart size is normal for the technique. There is no definite pleural effusion. There is no pneumothorax. The osseous structures are intact Th ere is no focal air space opacity, pleural effusion, or pneumothorax seen. The cardiac silhouette si ze is within normal limits. The osseous structures are intact. IMPRESSION: Stable diffuse interstitial process as described above. [facility], , 03/15/2024 7:09 AM
--- NOTE | 2024-03-15 08:09 | P.PN ---
Subjective Progress Note Date: 03/15/24 Principal diagnosis: Multiple embolic appearing cerebral infarcts without obvious source. Ms. Ponce is a 73-year-old female with history of hypertension, COPD, and bilateral cataracts. She was seen in [facility] on March 11 in the afternoon after she awoke at 7 AM in normal condition. Following this her family noted approximately 9 AM she began having some speech abnormalities where she was having some slurred speech and the family was unable to understand what she was saying. However it is unknown if she exhibited specific symptoms of aphasia. Family does not relate that she had any focal weakness but she was brought into the emergency room and is being admitted for possible stroke. A CT scan of her brain reveals evidence of possibly a right parietal acute to subacute stroke as well as a left sided infarct in the postcentral gyrus. It is unknown how acute both these injuries are at this time. She does take aspirin 325 mg daily at home as well as Pepcid. This morning she is quite somnolent and somewhat difficult to arouse. However she withdraws equally on all 4 extremities and appears to have no reflex abnormalities. I do not detect facial droop. On March 12, a MRI of the brain noncontrast was ordered to observe her infarcts as well as a 2D echocardiogram to look for heart abnormalities. On March 13, 2024 the patient has been transferred to the floor. She is still difficult to arouse but will will wake up and look at the examiner as well as sit up in her bed, she is not making any significant verbal communication and breathing is is rapid. She did undergo her CT angiogram as well as echocardiogram yesterday and is pending her MRI this morning. I spoke with her family and let them know that we are doing everything we can. She was placed on heparin last night for elevated troponins; however, cardiac she was seen by cardiology and they do not believe that her elevated troponins are cardiac in nature. On exam, she is somewhat lethargic but does appear to withdraw fairly equally on the left upper extremity as well as bilateral lower extremities. Her right upper extremity appears to be slightly decreased strength compared to yesterday. Her CT angiogram of the head and neck from March 12 shows no evidence of high-grade stenosis or dissection with evidence of left upper lobe pneumonia and bilateral pleural effusions. Echocardiogram shows ejection fraction of 60 to 65% with right ventricular dilation, severe pulmonary hypertension, mild mild to moderate tricuspid regurgitation and mild mitral regurgitation. On March 14, it is noted the patient was transferred to the ICU overnight, as she was having severe respiratory distress. She is now on a BiPAP mask. Unfortunately. This precludes her from receiving an MRI of the brain at this time, as well as her heparin drip which is in place per cardiology. She does not yet have a feeding tube placed and this is the reason where we have the IV h eparin on board. This morning, the patient is slightly more arousable and will attempt to open her eyes as well as attempt to sit up in bed. On exam, she does not appear to have a facial droop but does appear to be withdrawing her right arm less than her left arm. Legs will withdraw fairly symmetrically and I did not detect a Babinski sign at this time. On March 15, it is noted that the patient was taken off heparin for short period yesterday. I had a conversation with the ICU staff and the regarding the fact that the patient is not a getting any oral medications because she cannot have a nasogastric tube placed secondary to BiPAP, the heparin was restored. However, late last night the patient developed some hematuria and the heparin has been discontinued again. She is receiving rectal aspirin at this time. This morning she is seen in an earlier time of day than yesterday, and she is more lethargic. However, she will open her eyes to sternal rub visit as well as attempt to resist examiner with movement of her left arm. Her right arm appears weaker and does not withdraw strongly his left arm. Both legs appear to withdraw equally to distal stimulation. She remains in BiPAP. Conclusion: Ms. Ponce is a 73-year-old female with history of hypertension, COPD, and bilateral cataracts who was brought to the hospital on March 11 with some speech abnormalities and lethargy. She was noted on CT scan to have a right parietal as well as left precentral gyrus infarct. She has made some improvement in terms of her mental status, and is now on BiPAP in the ICU for respiratory distress and possible pneumonitis. 1. The patient is being continued on BiPAP for respiratory distress as well as pneumonitis. 2. Her heparin drip has been discontinued for the time being in light of her hematuria. She is receiving rectal aspirin as coverage for antithrombotic events. 3. Once the patient is off BiPAP we can place nasogastric tube and start both aspirin and Plavix for further antithrombotic needs in light of her embolic stroke of uncertain significance. She may need to be on the Plavix for a total of 21 days as a result of this. 4. I see no indication for formal anticoagulation at this time, however the patient has had multiple embolic appearing strokes and I will continue to monitor for any indication for further anticoagulation. 5 neurology will continue to follow her in house and make further recommendations as needed. Objective - Vital Signs Vital signs: Vital Signs Temp 98.0 F 03/15/24 04:00 Pulse 79 03/15/24 06:00 Resp 19 03/15/24 06:00 BP 109/64 03/15/24 06:00 Pulse Ox 98 03/15/24 06:00 FiO2 45 03/15/24 04:32 Intake & Output 03/14/24 03/15/24 03/15/24 18:59 06:59 18:59 Intake Total 1150 1287.805 Output Total 295 365 Balance 855 922.805 Weight 64.2 kg Intake: IV 650 1125 0.9 100 Piperacillin-Tazobactam 3 100 225 .375 gm In Sodium Chloride 0.9% 100 ml @ 25 mls/hr IVPB Q8H [facility] Rx#: [id number] Sodium Chloride 0.9% 1, 450 900 000 ml @ 75 mls/hr IV . [id number] [facility] Rx#:[id number] Intake, IV Titration 500 162.805 Amount Diltiazem 125 mg In 93.000 Sodium Chloride 0.9% 100 ml @ 10 MG/HR 10 mls/hr IV .[id number] [facility] Rx#: [id number] Heparin Sod,Pork in 0.45% 69.805 NaCl 25,000 unit In 0.45 % NaCl 1 250ml.bag @ 18 UNITS/KG/HR 11.538 mls/hr IV .[id number] [facility] Rx#: [id number] Sodium Chloride 0.9% 500 500 ml 500 ml @ 999 mls/hr IV .Q31M [facility] Rx#:[id number] Output: Urine 295 365 Other: Voiding Method Indwelling Catheter Indwelling Catheter - Labs CBC & Chem 7: 03/15/24 03:33 03/15/24 03:33 Labs: Abnormal Lab Results - Last 24 Hours (Table) 03/14/24 03/14/24 03/14/24 Range/Units 10:50 11:35 17:35 RBC (3.80-5.40) m/uL Hct (34.0-46.0) % MCHC (31.0-37.0) g/dL Neutrophils # (Manual) (1.3-7.7) k/uL Lymphocytes # (Manual) (1.0-4.8) k/uL APTT (22.0-30.0) sec ABG pH 7.31 L (7.35-7.45) ABG pCO2 89 H* (35-45) mmHg ABG HCO3 44 H* (21-25) mmol/L ABG Total CO2 47 H (19-24) mmol/L Carbon Dioxide (22-30) mmol/L BUN (7-17) mg/dL Glucose (74-99) mg/dL POC Glucose (mg/dL) 157 H 152 H (70-110) mg/dL Calcium (8.4-10.2) mg/dL Total Protein (6.3-8.2) g/dL Albumin (3.5-5.0) g/dL 03/14/24 03/14/24 03/15/24 Range/Units 22:15 23:41 03:33 RBC (3.80-5.40) m/uL Hct (34.0-46.0) % MCHC (31.0-37.0) g/dL Neutrophils # (Manual) (1.3-7.7) k/uL Lymphocytes # (Manual) (1.0-4.8) k/uL APTT 120.0 H* (22.0-30.0) sec ABG pH (7.35-7.45) ABG pCO2 (35-45) mmHg ABG HCO3 (21-25) mmol/L ABG Total CO2 (19-24) mmol/L Carbon Dioxide 38 H (22-30) mmol/L BUN 43 H (7-17) mg/dL Glucose 170 H (74-99) mg/dL POC Glucose (mg/dL) 181 H (70-110) mg/dL Calcium 8.0 L (8.4-10.2) mg/dL Total Protein 6.2 L (6.3-8.2) g/dL Albumin 3.2 L (3.5-5.0) g/dL 03/15/24 03/15/24 Range/Units 03:33 06:02 RBC 5.41 H (3.80-5.40) m/uL Hct 49.2 H (34.0-46.0) % MCHC 28.2 L (31.0-37.0) g/dL Neutrophils # (Manual) 8.18 H (1.3-7.7) k/uL Lymphocytes # (Manual) 0.44 L (1.0-4.8) k/uL APTT (22.0-30.0) sec ABG pH (7.35-7.45) ABG pCO2 (35-45) mmHg ABG HCO3 (21-25) mmol/L ABG Total CO2 (19-24) mmol/L Carbon Dioxide (22-30) mmol/L BUN (7-17) mg/dL Glucose (74-99) mg/dL POC Glucose (mg/dL) 149 H (70-110) mg/dL Calcium (8.4-10.2) mg/dL Total Protein (6.3-8.2) g/dL Albumin (3.5-5.0) g/dL
[2024-03-15 09:56] LABS: ABG Base Excess 9.1 mmol/L; ABG Oxygen Saturation 96.9 % (94-97); ABG PH 7.24 (7.35-7.45); ABG PO2 96 mmHg (83-108); ABG TCO2 44 mmol/L (19-24); Allen Test Performed? Yes
[2024-03-15 09:57] LABS: ABG PCO2 95 mmHg (35-45)
[2024-03-15 09:58] LABS: ABG HCO3 41 mmol/L (21-25)
--- NOTE | 2024-03-15 11:17 | P.PN ---
Subjective Progress Note Date: 03/15/24 Mirtha Ponce is a 73-year-old female patient who initially presented to her PCP with complaints of slurring of speech patient was directed to come to ER for further evaluation. At this time patient is in bed sleeping not following commands or answering questions. Family at bedside history obtained through them and medical records. According to family patient was found to be having slurred speech patient did not want to come to ER at that time so was taken to PCP. Per family patient is a heavy smoker but denies any alcohol or drug use. Denies any recent illness. Additional medical history includes COPD, hypertension. Head CT completed showing right parietal lobe acute/subacute CVA. EKG completed showing sinus rhythm. Chest x-ray completed showing cardiomegaly with pulmonary vascular congestion correlate with serum BNP COPD changes. Lab work revealing troponin 0.379, 0.429 and 0.436, white blood cell 5.7, hemoglobin 15.4 creatinine 0.56 bun 14. At this time neurology services have been consulted MRI of the brain has been ordered CTA of the carotids ordered. Will order 2D echo and consult cardiology services. Due to patient's increasing altered mental status changes and concerns for respiratory status we will consult pulmonary services. Patient's BNP also elevated at 6490 will give 1 dose of IV Lasix. Current vital signs temp 97.9, heart rate 96, respiratory rate 18, blood pressure 100/59 with a pulse ox of 95% on nonrebreather. On 03/13/2024 patient was seen and examined on the medical floor she is alert and oriented x 3 in no apparent distress, she has a low-grade fever of 99.4 pulse 108 respiration 22 blood pressure 123/61 pulse ox 91% on 6 L nasal cannula, she has cough, with minimal sputum production she denies any chest pain or shortness of breath no nausea or vomiting no abdominal pain no diarrhea and no urinary symptoms. At this time will keep patient n.p.o. for possible aspiration, will start IV Zosyn and repeat chest x-ray, infectious disease con sultation was added, will continue with IV heparin due to elevated troponin levels, awaiting cardiology input. Neurology consult reviewed. On 03/14/2024 patient remains lethargic in the intensive care unit. Patient was placed on BiPAP. Patient also started on IV Zosyn for concerns of aspiration pneumonia patient not following commands at this time recommendations for possible Dobbhoff placement in order to administer oral medications. Neurology services are following MRI has been ordered but cannot be performed while patient is on BiPAP and heparin. Critical care services following infectious disease, cardiology and neurology services following. Current vital signs temp 98.1, heart rate 96, respiratory rate 27, blood pressure 119/69 with a pulse ox of 96% on BiPAP with an FiO2 of 45%. Family at bedside all questions answered On 03/15/2024 patient was seen and examined in the intensive care unit, she is not responsive at this time she is maintained on BiPAP, vital examination r eveals a temperature of 97.9 pulse 89 respiration 24 blood pressure 110/62 pulse ox 99% on FiO2 45% White blood count is 8.7 hemoglobin 13.8 platelet count 249 arterial blood gas revealed a pH of 7.24 pCO2 95% PaO2 96%, BUN 43 creatinine 0.69. Patient is followed by neurology, infectious disease, cardiology and pulmonary critical care, she remains on IV heparin. CT scan of the brain, was repeated yesterday and reveals multiple subacute infarcts no acute bleed or mass effect, chest x-r ay done this morning reveals diffuse interstitial infiltrates. Prognosis is guarded. Objective - Vital Signs Vital signs: Vital Signs Temp 97.9 F 03/15/24 08:00 Pulse 82 03/15/24 08:28 Resp 23 03/15/24 08:28 BP 110/62 03/15/24 08:00 Pulse Ox 99 03/15/24 08:00 FiO2 45 03/15/24 08:13 Intake & Output 03/14/24 03/15/24 03/15/24 18:59 06:59 18:59 Intake Total 1150 1287.805 75 Output Total 295 365 50 Balance 855 922.805 25 Weight 64.2 kg Intake: IV 650 1125 75 0.9 100 Piperacillin-Tazobactam 3 100 225 .375 gm In Sodium Chloride 0.9% 100 ml @ 25 mls/hr IVPB Q8H [facility] Rx#: [id number] Sodium Chloride 0.9% 1, 450 900 75 000 ml @ 75 mls/hr IV . [id number] [facility] Rx#:[id number] Intake, IV Titration 500 162.805 Amount Diltiazem 125 mg In 93.000 Sodium Chloride 0.9% 100 ml @ 10 MG/HR 10 mls/hr IV .[id number] [facility] Rx#: [id number] Heparin Sod,Pork in 0.45% 69.805 NaCl 25,000 unit In 0.45 % NaCl 1 250ml.bag @ 18 UNITS/KG/HR 11.538 mls/hr IV .[id number] [facility] Rx#: [id number] Sodium Chloride 0.9% 500 500 ml 500 ml @ 999 mls/hr IV .Q31M [facility] Rx#:[id number] Output: Urine 295 365 50 Other: Voiding Method Indwelling Catheter Indwelling Catheter - Exam Head normocephalic Neck supple Lungs clear to auscultation bilaterally no wheezing or crackles Heart regular rate and rhythm S1-S2, no rub or gallop Abdomen is soft nontender nondistended positive bowel sounds no hepatosplenomegaly Extremities no edema Neuro patient is unresponsive - Labs CBC & Chem 7: 03/15/24 03:33 03/15/24 03:33 Labs: Abnormal Lab Results - Last 24 Hours (Table) 03/14/24 03/14/24 03/14/24 Range/Units 10:50 11:35 17:35 RBC (3.80-5.40) m/uL Hct (34.0-46.0) % MCHC (31.0-37.0) g/dL Neutrophils # (Manual) (1.3-7.7) k/uL Lymphocytes # (Manual) (1.0-4.8) k/uL APTT (22.0-30.0) sec ABG pH 7.31 L (7.35-7.45) ABG pCO2 89 H* (35-45) mmHg ABG HCO3 44 H* (21-25) mmol/L ABG Total CO2 47 H (19-24) mmol/L Carbon Dioxide (22-30) mmol/L BUN (7-17) mg/dL Glucose (74-99) mg/dL POC Glucose (mg/dL) 157 H 152 H (70-110) mg/dL Calcium (8.4-10.2) mg/dL Total Protein (6.3-8.2) g/dL Albumin (3.5-5.0) g/dL 11/29/24 11/29/24 11/30/24 Range/Units 22:15 23:41 03:33 RBC (3.80-5.40) m/uL Hct (34.0-46.0) % MCHC (31.0-37.0) g/dL Neutrophils # (Manual) (1.3-7.7) k/uL Lymphocytes # (Manual) (1.0-4.8) k/uL APTT 120.0 H* (22.0-30.0) sec ABG pH (7.35-7.45) ABG pCO2 (35-45) mmHg ABG HCO3 (21-25) mmol/L ABG Total CO2 (19-24) mmol/L Carbon Dioxide 38 H (22-30) mmol/L BUN 43 H (7-17) mg/dL Glucose 170 H (74-99) mg/dL POC Glucose (mg/dL) 181 H (70-110) mg/dL Calcium 8.0 L (8.4-10.2) mg/dL Total Protein 6.2 L (6.3-8.2) g/dL Albumin 3.2 L (3.5-5.0) g/dL 03/15/24 03/15/24 Range/Units 03:33 06:02 RBC 5.41 H (3.80-5.40) m/uL Hct 49.2 H (34.0-46.0) % MCHC 28.2 L (31.0-37.0) g/dL Neutrophils # (Manual) 8.18 H (1.3-7.7) k/uL Lymphocytes # (Manual) 0.44 L (1.0-4.8) k/uL APTT (22.0-30.0) sec ABG pH (7.35-7.45) ABG pCO2 (35-45) mmHg ABG HCO3 (21-25) mmol/L ABG Total CO2 (19-24) mmol/L Carbon Dioxide (22-30) mmol/L BUN (7-17) mg/dL Glucose (74-99) mg/dL POC Glucose (mg/dL) 149 H (70-110) mg/dL Calcium (8.4-10.2) mg/dL Total Protein (6.3-8.2) g/dL Albumin (3.5-5.0) g/dL Assessment and Plan Assessment: 1. Slurred speech and altered mental status changes likely secondary from CVA 2. Acute CHF exacerbation 3. Elevated troponins 4. Ongoing nicotine dependence greater than 1 pack/day 5. History of COPD 6. History of essential hypertension 7. Concerns of aspiration pneumonia patient started on IV Zosyn infectious disease service is consulted Neurology, cardiology and pulmonary services consulted 2D echo and MRI of the brain ordered Patient started on heparin drip Patient remains on IV Zosyn Patient currently on BiPAP Remains in the intensive care unit Repeat labs ordered PT and OT services consulted
[2024-03-15 11:37] LABS: Glucose,Whole Blood 159 mg/dL (70-110)
--- NOTE | 2024-03-15 12:31 | US ---
EXAMINATION TYPE: US venous doppler duplex LE BI DATE OF EXAM: 03/15/2024 9:54 AM Exam done portable in ICU COMPARISON: NONE CLINICAL INDICATION: Female, 73 years old with history of r/o dvt; , TECHNIQUE: The lower extremity deep venous system is examined utilizing real time linear array sonog tiffany with graded compression, color doppler sonography, and spectral doppler. SIDE PERFORMED: Bilateral FINDINGS: VESSELS IMAGED: Common Femoral Vein Deep Femoral Vein Greater Saphenous Vein * Femoral Vein Popliteal Vein Small Saphenous Vein * Proximal Calf Veins (* superficial vessels) Right Leg: Appears negative for DVT Left Leg: Appears negative for DVT IMPRESSION: No ultrasound evidence for deep venous thrombosis. [facility], , 03/15/2024 12:28 PM
--- NOTE | 2024-03-15 13:38 | CT ---
EXAMINATION TYPE: CT brain wo con DATE OF EXAM: 03/15/2024 1:10 PM COMPARISON: 03/14/2024. CLINICAL INDICATION: Female, 73 years old with history of Headache, Headache TECHNIQUE: Brain: Axial CT images of the brain were obtained with coronal and sagittal reformats created and rev iewed. Contrast used: None. Oral contrast used: None. CT DLP: 1109.8 mGycm, Automated exposure control for dose reduction was used. FINDINGS: Brain: Extra-axial spaces: No abnormal extra-axial fluid collections. Ventricular system: Within normal limits Cerebral parenchyma: Scattered areas of skelton-white matter loss of differentiation. Not significantly changed from 1129.4. No acute intraparenchymal hemorrhage or mass effect. The skelton-white junction is well differentiated. Cerebellum: Unremarkable. Mass effect: No evidence of midline shift. Intracranial vasculature: unremarkable Soft tissues: Normal. Calvarium/osseous structures: No depressed skull fracture. Paranasal sinuses and mastoid air cells: Mild scattered paranasal sinus disease. Visualized orbits: Bilateral aphakia IMPRESSION: No hemorrhagic conversion of suspected areas of subacute infarct. [facility], , 03/15/2024 1:35 PM
--- NOTE | 2024-03-15 13:49 | P.PN ---
Subjective Progress Note Date: 03/15/24 This is a 73-year-old female patient, a chronic smoker smokes around 1.5 packs of cigarettes on a daily basis, known to have COPD, nevertheless, does not utilize any form of respiratory medications or inhalers on outpatient basis. Denies having any home O2. Most of the information was obtained from the son at the bedside who also happens to be a poor historian. The patient came into the hospital because of slurred speech and she was not following commands and she was altered. The patient had no fever. No headaches. No neck stiffness. CAT scan of the head showed a right parietal lobe acute/subacute infarcts. She was in normal sinus rhythm. At the same time, the patient was found to have elevated troponins of 0.3, 0.4 and 0.4 respectively x 3. The white cell count was at 5.7 with a hemoglobin 15.4 and the patient had a normal creatinine of 0.56 with a BUN of 14. Neurology was involved in her case and the patient was given a CTA of the brain that showed no evidence of any dissection of the cervical and the vertebral arteries and there was no evidence of any significant stenosis in the carotids or in the intracranial arteries. There was however an area of atelectasis in the left upper lobe and this is based on the partial visualization of the lung windows done on the CAT scan of the head and neck. The patient is quite hypoxic and she is currently on 5 L of oxygen by nasal cannula with pulse ox 92%. Based on those findings, pulmonary consultation was requested. Her proBNP level is 6490. She is currently on IV heparin based on elevated troponins. She is also on aspirin. Cardiology is also on the case. Echocardiogram was done and the patient was found to have a normal LV function, severe RV dilatation and evidence of severe pulmonary hypertension. 03/13/2024, the patient is being seen for a follow-up. The patient is more lethargic compared to yesterday. The time of my evaluation, the patient was also tachypneic and had diminished level of consciousness. Her respiratory efforts were becoming more labored. Based on that, a blood gas was done while the patient was on oxygen at 5 L and the patient was found to have significant respiratory acidosis and there was evidence of an acute on top of chronic hypercapnic respiratory failure with a pH of 7.28 and pCO2 of 80 and pO2 of 82. Based on that, made recommendations for this patient to be transferred to the intensive care unit and started on a BiPAP. She is on DuoNeb the regiment [id number]. Will start IV Solu-Medrol. Will continue IV Zosyn. I requested a CT angiogram of the chest and this was not completed as the patient was not found to be stable enough to be transferred for a CTA of the chest. Chest x-ray from today shows cardiomegaly and pulm venous congestion and the patient will be given a dose of Lasix. After transfer to the ICU, the patient was given a Luevano catheter and immediately there was a total of 2 L of urine output obtained. Patient was also seen by neurology. The patient is quite lethargic. She is not hypercapnic respiratory failure. CAT scan of the brain showed a right parietal as well as left precentral gyrus infarct. She is not conversing at this point in time. She withdraws to painful stimulation. No seizure activity has been noted. Patient remains on IV heparin. MRI of the brain to be obtained later stage. On 03/14/2024, the patient is still on a BiPAP at a pressure of 12/5 with an FiO2 of 45%. Mental status is still impaired and the patient is quite lethargic and encephalopathic. She is not responding to any verbal stimulation. She grimaces only to deep painful stimulation. Her level of aggressiveness is quite impaired at this point in time. Based on that, repeat CAT scan of the brain was ordered and the patient was found to have multiple subacute infarct with mild progression without evidence of any bleeding. There was focal areas of decreased density in the left posterior frontal white matter and cortex consistent with subacute infarct. There is also changes involving the subcortical white matter of the left parietal lobe and right posterior temporal lobe. All consistent with subacute infarct. The patient is currently on aspirin. The patient remains on bronchodilators. The patient remains on steroids. The patient had a CT of the chest yesterday that showed no evidence of any pulmonary embolism. The previous described consolidation left upper lobe was not seen. There is cardiomegaly and small bilateral pleural effusion and interlobular septal thickening suggestive of mild interstitial edema. There is some atelectatic changes in lung bases bilaterally and dilated pulmonary arteries. A follow-up blood gas was also done that showed a pH of 7.31 with a pCO2 of 89 and pO2 of 93. The white cell count is 6.1 with a heme of 14.7 and a platelet count of 274. Sodium is at 138, potassium is at 5.1. BUN 36 with a creatinine of 0.8. Potassium level is at 5.1. She remains NPO. Breathing remains somewhat labored and the patient is generating approximately 300 cc of tidal volume while being on the BiPAP with a respirate of 28 and she carries a high minute ventilation. Echocardiogram was done on 03/12/2024 and it showed a preserved LV function, mild to moderate tricuspid regurgitation and severe pulmonary pretension. No evidence of any PFO or intracardiac shunts. On 03/15/2024, the patient is still very obtunded. As mentioned earlier, the patient has multiple [employer] infarcts as noted on the CAT scan of the brain and repeat CAT scan of the brain will be done today. She remains on a BiPAP at a pressure of 12/5 with an FiO2 of 45%. She remains in acute on chronic hypercapnic respiratory failure and a follow-up blood gas from today showed a pH of 7.24 with a pCO2 of 95 and a pO2 of 96 with an FiO2 of 45%. Chest x-ray from today shows no significant interval change. It is consistent with COPD and there is increased interstitial markings bilaterally. Doppler of the lower extremity showed no evidence of any DVT. Noted, yesterday evening, the patient went into atrial fibrillation with rapid ventricular response. Initially started on a Cardizem drip and currently the patient on amiodarone 0.5 mg/min. Cardiac rhythm is back to sinus. The patient was also on IV heparin. The patient encountered hematuria which seems to be improving at this point. IV heparin was discontinued briefly and the patient will be restarted back on IV heparin. She remains on IV Zosyn as a broad-spectrum antibiotic coverage. She remains on bronchodilators with DuoNeb updrafts and IV Solu-Medrol. Labs from today show a white cell count of 8.7 with a hemoglobin 13.8 and a platelet count of 249. BUN is 43 with a creatinine of 0.69. Serum bicarb to 38 and a sodium levels at 140 and a potassium level is at 5.1. LFTs are essentially within normal limits. Neurologist on the case. Echocardiogram showed preserved LV function with severe pulmonary hypertension. Patient remains NPO. Mental status is quite diminished and the patient is unable to come off the BiPAP and unable to take any oral feeds or swallow medication at this point in time. Aspirin is being given rectally at this point. Objective - Vital Signs Vital signs: Vital Signs Temp 97.9 F 03/15/24 08:00 Pulse 89 03/15/24 13:05 Resp 43 H 03/15/24 13:05 BP 120/69 03/15/24 13:05 Pulse Ox 97 03/15/24 13:05 FiO2 45 03/15/24 13:07 Intake & Output 03/14/24 03/15/24 03/15/24 18:59 06:59 18:59 Intake Total 1150 1287.805 450 Output Total 295 365 550 Balance 855 922.805 -100 Weight 64.2 kg 64.2 kg Intake: IV 650 1125 450 0.9 100 Piperacillin-Tazobactam 3 100 225 .375 gm In Sodium Chloride 0.9% 100 ml @ 25 mls/hr IVPB Q8H [facility] Rx#: [id number] Sodium Chloride 0.9% 1, 450 900 450 000 ml @ 75 mls/hr IV . [id number] [facility] Rx#:[id number] Intake, IV Titration 500 162.805 Amount Diltiazem 125 mg In 93.000 Sodium Chloride 0.9% 100 ml @ 10 MG/HR 10 mls/hr IV .[id number] [facility] Rx#: [id number] Heparin Sod,Pork in 0.45% 69.805 NaCl 25,000 unit In 0.45 % NaCl 1 250ml.bag @ 18 UNITS/KG/HR 11.538 mls/hr IV .[id number] [facility] Rx#: [id number] Sodium Chloride 0.9% 500 500 ml 500 ml @ 999 mls/hr IV .Q31M [facility] Rx#:[id number] Output: Urine 295 365 550 Other: Voiding Method Indwelling Catheter Indwelling Catheter Indwelling Catheter - Exam The patient appeared well short of breath, lethargic, quite obtunded. Vital signs as documented. The breathing is labored and there is significant respi ratory distress and the patient is still on BiPAP at a pressure of 12/5 with an FiO2 of 45%. Head exam is unremarkable. No scleral icterus or corneal arcus noted. Neck is without jugular venous distension, thyromegaly, or carotid bruits. Carotid upstrokes are brisk bilaterally. Lungs diminished breath sounds bilaterally Cardiac exam reveals the PMI to be normally sized and situated. Rhythm is re gular. First and second heart sounds normal. No murmurs, rubs or gallops. Abdominal exam reveals normal bowel sounds, no masses, no organomegaly and no aortic enlargement. Extremities are nonedematous and both femoral and pedal pulses are normal. Examination of the skin revealed no evidence of significant rashes, suspicious appearing nevi or other concerning lesions. Neurologically, the patient is quite sleepy and lethargic. According to the son at the bedside, she was able to converse with him earlier. Pupils are equal reactive to light. No facial asymmetry. Speech could not be assessed. Strength and motor function seems to be symmetrical bilaterally. No Babinski. Sensory functions cannot be accurately assessed. Neurologic function essentially unchanged compared to yesterday. - Labs CBC & Chem 7: 03/15/24 03:33 03/15/24 03:33 Labs: Abnormal Lab Results - Last 24 Hours (Table) 03/14/24 03/14/24 03/14/24 Range/Units 17:35 22:15 23:41 RBC (3.80-5.40) m/uL Hct (34.0-46.0) % MCHC (31.0-37.0) g/dL Neutrophils # (Manual) (1.3-7.7) k/uL Lymphocytes # (Manual) (1.0-4.8) k/uL APTT 120.0 H* (22.0-30.0) sec ABG pH (7.35-7.45) ABG pCO2 (35-45) mmHg ABG HCO3 (21-25) mmol/L ABG Total CO2 (19-24) mmol/L Carbon Dioxide (22-30) mmol/L BUN (7-17) mg/dL Glucose (74-99) mg/dL POC Glucose (mg/dL) 152 H 181 H (70-110) mg/dL Calcium (8.4-10.2) mg/dL Total Protein (6.3-8.2) g/dL Albumin (3.5-5.0) g/dL 03/15/24 03/15/24 03/15/24 Range/Units 03:33 03:33 06:02 RBC 5.41 H (3.80-5.40) m/uL Hct 49.2 H (34.0-46.0) % MCHC 28.2 L (31.0-37.0) g/dL Neutrophils # (Manual) 8.18 H (1.3-7.7) k/uL Lymphocytes # (Manual) 0.44 L (1.0-4.8) k/uL APTT (22.0-30.0) sec ABG pH (7.35-7.45) ABG pCO2 (35-45) mmHg ABG HCO3 (21-25) mmol/L ABG Total CO2 (19-24) mmol/L Carbon Dioxide 38 H (22-30) mmol/L BUN 43 H (7-17) mg/dL Glucose 170 H (74-99) mg/dL POC Glucose (mg/dL) 149 H (70-110) mg/dL Calcium 8.0 L (8.4-10.2) mg/dL Total Protein 6.2 L (6.3-8.2) g/dL Albumin 3.2 L (3.5-5.0) g/dL 03/15/24 03/15/24 Range/Units 09:54 11:35 RBC (3.80-5.40) m/uL Hct (34.0-46.0) % MCHC (31.0-37.0) g/dL Neutrophils # (Manual) (1.3-7.7) k/uL Lymphocytes # (Manual) (1.0-4.8) k/uL APTT (22.0-30.0) sec ABG pH 7.24 L (7.35-7.45) ABG pCO2 95 H* (35-45) mmHg ABG HCO3 41 H* (21-25) mmol/L ABG Total CO2 44 H (19-24) mmol/L Carbon Dioxide (22-30) mmol/L BUN (7-17) mg/dL Glucose (74-99) mg/dL POC Glucose (mg/dL) 159 H (70-110) mg/dL Calcium (8.4-10.2) mg/dL Total Protein (6.3-8.2) g/dL Albumin (3.5-5.0) g/dL Assessment and Plan Plan: Acute CVA. Patient presented with altered mentation and slurred speech.Initial CAT scan of the brain showed evidence of a acute/subacute stroke involving the right parietal lobe. CT angiogram of the brain showed no evidence of any significant stenosis or dissection involving the carotids and the intracranial vessels. The patient remains to have a l diminished level of consciousness and she is unresponsive to verbal and she grimaces only to deep painful stimulation.. Her blood gas, there is also a component of an acute on top of chronic respiratory acidosis. A repeat CAT scan of the brain was done and it was consistent with Multiple subacute infarct with mild progression with areas of decreased density involving the left posterior frontal lobe, left parietal lobe, and right posterior temporal lobe consistent with subacute infarct. Patient had also an episode of atrial fibrillation with RVR and she is back in normal sinus rhythm. Rule out embolic phenomena with multi infarct based on un derlying atrial fibrillation. Patient is currently on IV heparin. Paroxysmal atrial fibrillation, current rhythm is sinus and the patient is currently on amiodarone drip at 0.5 mg/min and the patient is also on IV heparin Hematuria, currently inactive, IV heparin has been resumed COPD with likely chronic hypoxic and hypercapnic respiratory failure, please refer to the blood gases done this morning. There is a component of an acute on top of chronic hypercapnic respiratory failure, the patient remains on a BiPAP and the blood gases still showing evidence of hypercapnic respiratory failure Chronic hypoxic respiratory failure Acute on top of chronic hypercapnic respiratory failure due to COPD exacerbation. CT of the chest shows no evidence of any pulm embolism, some increased pulm vascular markings bilaterally along with cardiomegaly and evidence of pulm hypertension. Chronic smoker and the patient smokes around 1.5 packs of cigarettes on a daily basis Severe pulmonary hypertension, this could be related to chronic hypoxemia and group 3 pulmonary hypertension. The baseline oxygenation status is not known. Nevertheless the patient is known to have COPD and possibly chronic hypoxemic respiratory failure. CT of the chest shows no evidence of any pulmonary embolism. Abnormal troponins, currently on IV heparin and EKG showing normal sinus rhythm without any acute ST segment elevation. There is evidence of old anteroseptal infarct based on EKG findings. Hypertension Hyperlipidemia Plan Continue BiPAP at a pressure of 12/5 with an FiO2 of 45%. Blood gas was noted. High risk and she may ultimately need intubation mechanical ventilation. IV heparin to be continued and the hematuria will be monitored Continue aspirin CT scan of the brain was noted and is consistent with multiple subacute infarcts and the patient would benefit from a BRIAN at a later stage. His sinus and the patient encountered atrial fibrillation and she is currently on amiodarone drip Continue amiodarone drip for now Doppler of the lower extremity been negative Obtain follow-up CAT scan of the brain to rule out any bleed Monitor the blood gas Continue DuoNeb nebulized treatments [id number] Continue IV Solu-Medrol Continue IV Zosyn MRI of the brain once more stable Monitor mental status Will continue to follow The patient has been kept n.p.o. Give Diamox 500 mg IV x 2 doses Family has been updated on the condition and the son is at the bedside Condition is critical and this evaluation was done more than 30 minutes. Time with Patient: Greater than 30
--- NOTE | 2024-03-15 15:07 | P.PN ---
Subjective Progress Note Date: 03/15/24 Principal diagnosis: Reason for follow-up is pneumonia Patient is a 73-year-old female with a past medical history significant for COPD hypertension hyperlipidemia patient was brought into the hospital for evaluation of mental status changes and was being worked up for stroke did have worsening of respiratory status concerning for aspiration prompted this consultation. On today's evaluation that is 03/15/2024, the patient continues to be afebrile, the patient is on BiPAP with a 45% FiO2 patient mentation remains to be show no vomiting diarrhea or any other changes reported patient reported history of. The patient white count is 8.7, creatinine 0.69 Objective - Vital Signs Vital signs: Vital Signs Temp 97.9 F 03/15/24 08:00 Pulse 89 03/15/24 13:05 Resp 43 H 03/15/24 13:05 BP 120/69 03/15/24 13:05 Pulse Ox 97 03/15/24 13:05 FiO2 45 03/15/24 13:07 Intake & Output 03/14/24 03/15/24 03/15/24 18:59 06:59 18:59 Intake Total 1150 1287.805 525 Output Total 295 365 580 Balance 855 922.805 -55 Weight 64.2 kg 64.2 kg Intake: IV 650 1125 525 0.9 100 Piperacillin-Tazobactam 3 100 225 .375 gm In Sodium Chloride 0.9% 100 ml @ 25 mls/hr IVPB Q8H [facility] Rx#: [id number] Sodium Chloride 0.9% 1, 450 900 525 000 ml @ 75 mls/hr IV . [id number] [facility] Rx#:[id number] Intake, IV Titration 500 162.805 0 Amount Diltiazem 125 mg In 93.000 Sodium Chloride 0.9% 100 ml @ 10 MG/HR 10 mls/hr IV .[id number] [facility] Rx#: [id number] Heparin Sod,Pork in 0.45% 69.805 0 NaCl 25,000 unit In 0.45 % NaCl 1 250ml.bag @ 18 UNITS/KG/HR 11.538 mls/hr IV .[id number] [facility] Rx#: [id number] Sodium Chloride 0.9% 500 500 ml 500 ml @ 999 mls/hr IV .Q31M [facility] Rx#:[id number] Output: Urine 295 365 580 Other: Voiding Method Indwelling Catheter Indwelling Catheter Indwelling Catheter - Exam GENERAL DESCRIPTION: An elderly female lying in bed in no distress RESPIRATORY SYSTEM: Unlabored breathing , decreased breath sounds at bases HEART: S1 S2 regular rate and rhythm , ABDOMEN: Soft , no tenderness EXTREMITIES: No edema feet - Labs CBC & Chem 7: 03/15/24 03:33 03/15/24 03:33 Labs: Abnormal Lab Results - Last 24 Hours (Table) 03/14/24 03/14/24 03/14/24 Range/Units 17:35 22:15 23:41 RBC (3.80-5.40) m/uL Hct (34.0-46.0) % MCHC (31.0-37.0) g/dL Neutrophils # (Manual) (1.3-7.7) k/uL Lymphocytes # (Manual) (1.0-4.8) k/uL APTT 120.0 H* (22.0-30.0) sec ABG pH (7.35-7.45) ABG pCO2 (35-45) mmHg ABG HCO3 (21-25) mmol/L ABG Total CO2 (19-24) mmol/L Carbon Dioxide (22-30) mmol/L BUN (7-17) mg/dL Glucose (74-99) mg/dL POC Glucose (mg/dL) 152 H 181 H (70-110) mg/dL Calcium (8.4-10.2) mg/dL Total Protein (6.3-8.2) g/dL Albumin (3.5-5.0) g/dL 03/15/24 03/15/24 03/15/24 Range/Units 03:33 03:33 06:02 RBC 5.41 H (3.80-5.40) m/uL Hct 49.2 H (34.0-46.0) % MCHC 28.2 L (31.0-37.0) g/dL Neutrophils # (Manual) 8.18 H (1.3-7.7) k/uL Lymphocytes # (Manual) 0.44 L (1.0-4.8) k/uL APTT (22.0-30.0) sec ABG pH (7.35-7.45) ABG pCO2 (35-45) mmHg ABG HCO3 (21-25) mmol/L ABG Total CO2 (19-24) mmol/L Carbon Dioxide 38 H (22-30) mmol/L BUN 43 H (7-17) mg/dL Glucose 170 H (74-99) mg/dL POC Glucose (mg/dL) 149 H (70-110) mg/dL Calcium 8.0 L (8.4-10.2) mg/dL Total Protein 6.2 L (6.3-8.2) g/dL Albumin 3.2 L (3.5-5.0) g/dL 03/15/24 03/15/24 Range/Units 09:54 11:35 RBC (3.80-5.40) m/uL Hct (34.0-46.0) % MCHC (31.0-37.0) g/dL Neutrophils # (Manual) (1.3-7.7) k/uL Lymphocytes # (Manual) (1.0-4.8) k/uL APTT (22.0-30.0) sec ABG pH 7.24 L (7.35-7.45) ABG pCO2 95 H* (35-45) mmHg ABG HCO3 41 H* (21-25) mmol/L ABG Total CO2 44 H (19-24) mmol/L Carbon Dioxide (22-30) mmol/L BUN (7-17) mg/dL Glucose (74-99) mg/dL POC Glucose (mg/dL) 159 H (70-110) mg/dL Calcium (8.4-10.2) mg/dL Total Protein (6.3-8.2) g/dL Albumin (3.5-5.0) g/dL Assessment and Plan (1) Aspiration pneumonia Current Visit: Yes Status: Acute Code(s): J69.0 - PNEUMONITIS DUE TO INHALATION OF FOOD AND VOMIT SNOMED Code(s): 436223618 Plan: 1patient with worsening respiratory status and this patient initially brought into the hospital with slurred speech and being worked up for a CVA with worsening of respiratory status requiring BiPAP and a question of possible aspiration. 2patient did have CT angiogram of the chest shows consolidation concerning for pneumonia possible aspiration repeat CT of the brain concerning for subacute infarct with some progression neurology is following the patient 3patient is afebrile white count has been normal currently being treated with Zosyn 3.375 g every 8 hours and monitor clinical course closely Dictation was produced using [employer] dictation software. please excuse any grammatical, word or spelling errors. Time with Patient: Less than 30
--- NOTE | 2024-03-15 15:25 | P.PN ---
Subjective Progress Note Date: 03/15/24 PROGRESS NOTE The patient is a 73-year-old female with history of diabetes, hypertension and hyperlipidemia who presented with change in mental status and have evidence of CVA. She had mild troponin elevation. She was becoming less responsive and more tachypneic. She was transferred to the ICU and placed on BiPAP. She continues to be in sinus mechanism and her blood pressure stable. She is not responding to verbal stimulation. She has no evidence of atrial fibrillation. Her urine output has been stable. Her echocardiogram showed a preserved systolic function. March 15 : The patient remains on the BiPAP, she had an episode of atrial fibrillation yesterday, back in sinus mechanism. She was started on IV amiodarone and IV Cardizem. The IV Cardizem was stopped because of bradycardia. She was started on heparin but had hematuria that improved, she is back on heparin. Her blood pressure is stable. She remains obtunded not answering questions or following commands. Her repeat CT scan showed no evidence of bleed. She is on no vasopressor. She is unable to take any oral medication at this time. Medications: IV heparin, aspirin rectally, IV heparin, IV amiodarone, methylprednisolone PHYSICAL EXAMINATION: Blood pressure 118/70 heart rate 82, on BiPAP, not following verbal stimulation or commands, obtunded LUNGS: Clear to auscultation HEART: Regular rate and rhythm, S1, S2. No S3. Systolic ejection murmur ABDOMEN: Soft, nontender, no organomegaly EXTREMETIES: No edema LAB: Hemoglobin 13.8, potassium 5.1, BUN 43, creatinine 0.69 IMPRESSION: 1. CVA, patient remains obtunded 2. Mild troponin elevation appears to be type II event 3. Respiratory failure, probably related to the stroke and COPD 4. History of COPD 5. History of hypertension 6. History of hyperlipidemia 7. Episode of paroxysmal atrial fibrillation, back in sinus mechanism, continues to be anticoagulated. It is unclear if the patient had paroxysmal atrial fibrillation before that could be the cause of her stroke PLAN: 1. Continue IV amiodarone for now 2. Continue IV heparin 3. When patient is able to take oral medication or feeding tube has been placed we will switch her to oral medication 4. Prognosis remains guarded Objective - Vital Signs Vital signs: Vital Signs Temp 97.9 F 03/15/24 08:00 Pulse 82 03/15/24 15:00 Resp 27 H 03/15/24 15:00 BP 118/71 03/15/24 15:00 Pulse Ox 99 03/15/24 15:00 FiO2 45 03/15/24 13:07 Intake & Output 03/14/24 03/15/24 03/15/24 18:59 06:59 18:59 Intake Total 1150 1287.805 600 Output Total 295 365 640 Balance 855 922.805 -40 Weight 64.2 kg 64.2 kg Intake: IV 650 1125 600 0.9 100 Piperacillin-Tazobactam 3 100 225 .375 gm In Sodium Chloride 0.9% 100 ml @ 25 mls/hr IVPB Q8H [facility] Rx#: [id number] Sodium Chloride 0.9% 1, 450 900 600 000 ml @ 75 mls/hr IV . [id number] [facility] Rx#:[id number] Intake, IV Titration 500 162.805 0 Amount Diltiazem 125 mg In 93.000 Sodium Chloride 0.9% 100 ml @ 10 MG/HR 10 mls/hr IV .[id number] [facility] Rx#: [id number] Heparin Sod,Pork in 0.45% 69.805 0 NaCl 25,000 unit In 0.45 % NaCl 1 250ml.bag @ 18 UNITS/KG/HR 11.538 mls/hr IV .[id number] [facility] Rx#: [id number] Sodium Chloride 0.9% 500 500 ml 500 ml @ 999 mls/hr IV .Q31M [facility] Rx#:[id number] Output: Urine 295 365 640 Other: Voiding Method Indwelling Catheter Indwelling Catheter Indwelling Catheter - Labs CBC & Chem 7: 03/15/24 03:33 03/15/24 03:33 Labs: Abnormal Lab Results - Last 24 Hours (Table) 03/14/24 03/14/24 03/14/24 Range/Units 17:35 22:15 23:41 RBC (3.80-5.40) m/uL Hct (34.0-46.0) % MCHC (31.0-37.0) g/dL Neutrophils # (Manual) (1.3-7.7) k/uL Lymphocytes # (Manual) (1.0-4.8) k/uL APTT 120.0 H* (22.0-30.0) sec ABG pH (7.35-7.45) ABG pCO2 (35-45) mmHg ABG HCO3 (21-25) mmol/L ABG Total CO2 (19-24) mmol/L Carbon Dioxide (22-30) mmol/L BUN (7-17) mg/dL Glucose (74-99) mg/dL POC Glucose (mg/dL) 152 H 181 H (70-110) mg/dL Calcium (8.4-10.2) mg/dL Total Protein (6.3-8.2) g/dL Albumin (3.5-5.0) g/dL 03/15/24 03/15/24 03/15/24 Range/Units 03:33 03:33 06:02 RBC 5.41 H (3.80-5.40) m/uL Hct 49.2 H (34.0-46.0) % MCHC 28.2 L (31.0-37.0) g/dL Neutrophils # (Manual) 8.18 H (1.3-7.7) k/uL Lymphocytes # (Manual) 0.44 L (1.0-4.8) k/uL APTT (22.0-30.0) sec ABG pH (7.35-7.45) ABG pCO2 (35-45) mmHg ABG HCO3 (21-25) mmol/L ABG Total CO2 (19-24) mmol/L Carbon Dioxide 38 H (22-30) mmol/L BUN 43 H (7-17) mg/dL Glucose 170 H (74-99) mg/dL POC Glucose (mg/dL) 149 H (70-110) mg/dL Calcium 8.0 L (8.4-10.2) mg/dL Total Protein 6.2 L (6.3-8.2) g/dL Albumin 3.2 L (3.5-5.0) g/dL 03/15/24 03/15/24 Range/Units 09:54 11:35 RBC (3.80-5.40) m/uL Hct (34.0-46.0) % MCHC (31.0-37.0) g/dL Neutrophils # (Manual) (1.3-7.7) k/uL Lymphocytes # (Manual) (1.0-4.8) k/uL APTT (22.0-30.0) sec ABG pH 7.24 L (7.35-7.45) ABG pCO2 95 H* (35-45) mmHg ABG HCO3 41 H* (21-25) mmol/L ABG Total CO2 44 H (19-24) mmol/L Carbon Dioxide (22-30) mmol/L BUN (7-17) mg/dL Glucose (74-99) mg/dL POC Glucose (mg/dL) 159 H (70-110) mg/dL Calcium (8.4-10.2) mg/dL Total Protein (6.3-8.2) g/dL Albumin (3.5-5.0) g/dL
[2024-03-15 18:46] LABS: Glucose,Whole Blood 157 mg/dL (70-110)
[2024-03-15] MEDS: HEPARIN SODIUM 1,000 UN/ML (10ML VL) IV PRN (23:09)
[2024-03-15 23:50] LABS: Glucose,Whole Blood 161 mg/dL (70-110)
[2024-03-16 05:59] LABS: ABG Oxygen Saturation 97.2 % (94-97); ABG PO2 101 mmHg (83-108); Allen Test Performed? Yes
[2024-03-16 06:02] LABS: Glucose,Whole Blood 165 mg/dL (70-110)
[2024-03-16 06:02] LABS: ABG PCO2 >98 mmHg (35-45); ABG PH 7.14 (7.35-7.45)
[2024-03-16 06:34] LABS: HCT 52.8 % (34.0-46.0); HGB 14.1 gm/dL (11.4-16.0); Hypochromasia Marked; MCH 25.6 pg (25.0-35.0); MCHC 26.7 g/dL (31.0-37.0); Mean Platelet Volume 7.7; Platelet Count 213 k/uL (150-450); RBC 5.51 m/uL (3.80-5.40); RDW 14.9 % (11.5-15.5); WBC 7.9 k/uL (3.8-10.6)
--- NOTE | 2024-03-16 06:40 | XR ---
EXAMINATION TYPE: XR chest 1V portable DATE OF EXAM: 03/16/2024 COMPARISON: 03/15/2024 CLINICAL INDICATION: Female, 73 years old with history of COPD; TECHNIQUE: Single frontal view of the chest is obtained. FINDINGS: There is no change in the marked diffuse predominantly interstitial infiltrates. There is increasing opacification in the retrocardiac region. There is no pneumothorax. IMPRESSION: 1. No change in the marked diffuse interstitial infiltrates. 2. Increasing opacification in the left retrocardiac region possibly indicating superimposed pneumoni a on marked chronic interstitial changes versus diffuse interstitial pneumonia [facility], , 03/16/2024 6:37 AM
[2024-03-16 06:45] LABS: ALT 12 U/L (4-34); AST 18 U/L (14-36); African American GFR (CKD) 69 (>60 ml/min/1.73 sqM); Albumin 3.2 g/dL (3.5-5.0); Alkaline Phosphatase 46 U/L (38-126); Anion Gap -1 mmol/L; Blood Urea Nitrogen 42 mg/dL (7-17); Calcium 7.9 mg/dL (8.4-10.2); Carbon Dioxide 38 mmol/L (22-30); Chloride 106 mmol/L (98-107); Glucose 181 mg/dL (74-99); Non-African American GFR(CKD) 60 (>60 ml/min/1.73 sqM); Potassium 4.7 mmol/L (3.5-5.1); Sodium 143 mmol/L (137-145); Total Bilirubin 0.6 mg/dL (0.2-1.3); Total Protein 6.1 g/dL (6.3-8.2)
--- NOTE | 2024-03-16 07:11 | P.PN ---
Subjective Progress Note Date: 03/15/24 Principal diagnosis: Multifocal embolic cerebral infarcts with new diagnosis of atrial fibrillation. Likely aspiration pneumonia and developing acute respiratory distress syndrome. Ms. Ponce is a 73-year-old female with history of hypertension, COPD, and bilateral cataracts. She was seen in [facility] on March 11 in the afternoon after she awoke at 7 AM in normal condition. Following this her family noted approximately 9 AM she began having some speech abnormalities where she was having some slurred speech and the family was unable to understand what she was saying. However it is unknown if she exhibited specific symptoms of aphasia. Family does not relate that she had any focal weakness but she was brought into the emergency room and is being admitted for possible stroke. A CT scan of her brain reveals evidence of possibly a right parietal acute to subacute stroke as well as a left sided infarct in the postcentral gyrus. It is unknown how acute both these injuries are at this time. She does take aspirin 325 mg daily at home as well as Pepcid. This morning she is quite somnolent and somewhat difficult to arouse. However she withdraws equally on all 4 extremities and appears to have no reflex abnormalities. I do not detect facial droop. On March 12, a MRI of the brain noncontrast was ordered to observe her infarcts as well as a 2D echocardiogram to look for heart abnormalities. On March 13, 2024 the patient has been transferred to the floor. She is still difficult to arouse but will will wake up and look at the examiner as well as sit up in her bed, she is not making any significant verbal communication and breathing is is rapid. She did undergo her CT angiogram as well as echocardiogram yesterday and is pending her MRI this morning. I spoke with her family and let them know that we are doing everything we can. She was placed on heparin last night for elevated troponins; however, cardiac she was seen by cardiology and they do not believe that her elevated troponins are cardiac in nature. On exam, she is somewhat lethargic but does appear to withdraw fairly equally on the left upper extremity as well as bilateral lower extremities. Her right upper extremity appears to be slightly decreased strength compared to yesterday. Her CT angiogram of the head and neck from March 12 shows no evidence of high-grade stenosis or dissection with evidence of left upper lobe pneumonia and bilateral pleural effusions. Echocardiogram shows ejection fraction of 60 to 65% with right ventricular dilation, severe pulmonary hypertension, mild mild to moderate tricuspid regurgitation and mild mitral regurgitation. On March 14, it is noted the patient was transferred to the ICU overnight, as she was having severe respiratory distress. She is now on a BiPAP mask. Unfortunately. This precludes her from receiving an MRI of the brain at this time, as well as her heparin drip which is in place per cardiology. She does not yet have a feeding tube placed and this is the reason where we have the IV heparin on board. This morning, the patient is slightly more arousable and will attempt to open her eyes as well as attempt to sit up in bed. On exam, she does not appear to have a facial droop but does appear to be withdrawing her right arm less than her left arm. Legs will withdraw fairly symmetrically and I did not detect a Babinski sign at this time. On March 15, it is noted that the patient was taken off heparin for short period yesterday. I had a conversation with the ICU staff and the regarding the fact that the patient is not a getting any oral medications because she cannot have a nasogastric tube placed secondary to BiPAP, the heparin was restored. However, late last night the patient developed some hematuria and the heparin has been discontinued again. She is receiving rectal aspirin at this time. This morning she is seen in an earlier time of day than yesterday, and she is more lethargic. However, she will open her eyes to sternal rub visit as well as attempt to resist examiner with movement of her left arm. Her right arm appears weaker and does not withdraw strongly his left arm. Both legs appear to withdraw equally to distal stimulation. She remains in BiPAP. She was continued on her heparin drip at that time, as it appeared like her hematuria had decreased. When seen on March 16, 2024, it is noted that she underwent an episode of atrial fibrillation with rapid ventricular response on March 14. Therefore she will need to remain on anticoagulation as this is the likely etiology of her multifocal cerebral infarcts. She remains on heparin at this time but it is noted that her urine bag has some darkly red-colored urine. Her respiratory condition is declining this morning with ABGs consistent with severe respiratory acidosis while on BiPAP. pH was 7.14 and pCO2 was greater than 98. The patient is unarousable this morning. She may attempt to open her eyes but this is not accomplished. She is not withdrawing either arms or legs to stimulation. Reflexes are trace bilaterally with an upgoing toe on the left and equivocal on the right. Conclusion: Ms. Ponce is a 73-year-old female with history of hypertension, COPD, and bilateral cataracts who was brought to the hospital on March 11 with some speech abnormalities and lethargy. She was noted on CT scan to have a right parietal as well as left precentral gyrus infarct. She has made some improvement in terms of her mental status, and is now on BiPAP in the ICU for respiratory distress and possible pneumonitis. 1. The patient will require long-term anticoagulation for management of embolic strokes in light of her atrial fibrillation. She is currently on a heparin drip as she is on BiPAP and cannot receive oral medications at this time. Once her respiratory condition improves a nasogastric tube and/or PEG tube will need to be placed for oral medications and I would recommend DOACs rather than warfarin for management of her long-term care. 2. The patient is exhibiting some degree of hematuria, and this will be managed by the ICU team. If the heparin drip needs to be discontinued for short period she is receiving rectal aspirin which should cover her minimally for stroke protection. 3. Once the patient has been removed from BiPAP and off of heparin, I would recommend an MRI of the brain to look for any evidence of other scattered microembolic infarcts. 4. I have spoken with her son in the room. He has been with her every day, but may not have the mental capacity to communicate her situation and recommendations to the rest of the family. Nursing notes there may need to be a discussion regarding level of care in light of her severe respiratory condition. Neurology will be standby and available to speak with family if necessary. 5. Dr. Jesus Alberto Dyer will be covering for neurology starting tomorrow morning and will continue to follow the patient and make further recommendations as needed. Objective - Vital Signs Vital signs: Vital Signs Temp 97.8 F 03/16/24 04:00 Pulse 84 03/16/24 05:00 Resp 23 03/16/24 05:00 BP 115/68 03/16/24 05:00 Pulse Ox 97 03/16/24 05:00 FiO2 45 03/16/24 04:41 Intake & Output 03/15/24 03/16/24 03/16/24 18:59 06:59 18:59 Intake Total 3231.767 1470.202 Output Total 745 370 Balance 411.116 723.202 Weight 64.2 kg 66.5 kg Intake: IV 825 1025 Piperacillin-Tazobactam 3 200 .375 gm In Sodium Chloride 0.9% 100 ml @ 25 mls/hr IVPB Q8H [facility] Rx#: [id number] Sodium Chloride 0.9% 1, 825 825 000 ml @ 75 mls/hr IV . [id number] [facility] Rx#:[id number] Intake, IV Titration 331.116 68.202 Amount Amiodarone 450 mg In 231.116 Dextrose 5% in Water 250 ml @ 0.5 MG/MIN 16.667 mls/hr IV .Q15H [facility] Rx#: [id number] Heparin Sod,Pork in 0.45% 0 68.202 NaCl 25,000 unit In 0.45 % NaCl 1 250ml.bag @ 18 UNITS/KG/HR 11.538 mls/hr IV .[id number] [facility] Rx#: [id number] Piperacillin-Tazobactam 3 100 .375 gm In Sodium Chloride 0.9% 100 ml @ 25 mls/hr IVPB Q8H [facility] Rx#: [id number] Output: Urine 745 370 Other: Voiding Method Indwelling Catheter Indwelling Catheter - Labs CBC & Chem 7: 03/15/24 03:33 03/16/24 05:39 Labs: Abnormal Lab Results - Last 24 Hours (Table) 03/15/24 03/15/24 03/15/24 Range/Units 09:54 11:35 18:42 APTT (22.0-30.0) sec ABG pH 7.24 L (7.35-7.45) ABG pCO2 95 H* (35-45) mmHg ABG HCO3 41 H* (21-25) mmol/L ABG Total CO2 44 H (19-24) mmol/L ABG O2 Saturation (94-97) % Carbon Dioxide (22-30) mmol/L BUN (7-17) mg/dL Glucose (74-99) mg/dL POC Glucose (mg/dL) 159 H 157 H (70-110) mg/dL Calcium (8.4-10.2) mg/dL Total Protein (6.3-8.2) g/dL Albumin (3.5-5.0) g/dL 03/15/24 03/15/24 03/16/24 Range/Units 20:18 23:48 05:39 APTT 32.1 H (22.0-30.0) sec ABG pH (7.35-7.45) ABG pCO2 (35-45) mmHg ABG HCO3 (21-25) mmol/L ABG Total CO2 (19-24) mmol/L ABG O2 Saturation (94-97) % Carbon Dioxide 38 H (22-30) mmol/L BUN 42 H (7-17) mg/dL Glucose 181 H (74-99) mg/dL POC Glucose (mg/dL) 161 H (70-110) mg/dL Calcium 7.9 L (8.4-10.2) mg/dL Total Protein 6.1 L (6.3-8.2) g/dL Albumin 3.2 L (3.5-5.0) g/dL 03/16/24 03/16/24 Range/Units 05:57 06:01 APTT (22.0-30.0) sec ABG pH 7.14 L* (7.35-7.45) ABG pCO2 >98 H* (35-45) mmHg ABG HCO3 (21-25) mmol/L ABG Total CO2 (19-24) mmol/L ABG O2 Saturation 97.2 H (94-97) % Carbon Dioxide (22-30) mmol/L BUN (7-17) mg/dL Glucose (74-99) mg/dL POC Glucose (mg/dL) 165 H (70-110) mg/dL Calcium (8.4-10.2) mg/dL Total Protein (6.3-8.2) g/dL Albumin (3.5-5.0) g/dL
[2024-03-16 07:13] LABS: MCV 95.9 fL (80.0-100.0)
[2024-03-16 08:05] LABS: Band Neutrophils % 5 %; Lymphocytes # (M) 0.32 k/uL (1.0-4.8); Monocytes # (M) 0.16 k/uL (0-1.0); Neutrophils % (M) 89 %; Nucleated Red Blood Cells 0 /100 WBC (0-0); Total Cells Counted 100
--- NOTE | 2024-03-16 08:49 | P.PN ---
Subjective Progress Note Date: 03/16/24 PROGRESS NOTE The patient is a 73-year-old female with history of diabetes, hypertension and hyperlipidemia who presented with change in mental status and have evidence of CVA. She had mild troponin elevation. She was becoming less responsive and more tachypneic. She was transferred to the ICU and placed on BiPAP. She continues to be in sinus mechanism and her blood pressure stable. She is not responding to verbal stimulation. She has no evidence of atrial fibrillation. Her urine output has been stable. Her echocardiogram showed a preserved systolic function. March 15 : The patient remains on the BiPAP, she had an episode of atrial fibrillation yesterday, back in sinus mechanism. She was started on IV amiodarone and IV Cardizem. The IV Cardizem was stopped because of bradycardia. She was started on heparin but had hematuria that improved, she is back on heparin. Her blood pressure is stable. She remains obtunded not answering questions or following commands. Her repeat CT scan showed no evidence of bleed. She is on no vasopressor. She is unable to take any oral medication at this time. March 16: The patient remains on the BiPAP, obtunded, not following command and not responding to painful stimuli. In sinus mechanism with no further episodes of atrial fibrillation. Urine output has been adequate. She is back on her IV heparin, her hematuria has improved. Discussion with the family regarding further course of treatment including intubation was made by Dr. Lopez. Family is not sure yet. She is unable to take any oral medications at this time. Medications: IV heparin, aspirin rectally, IV heparin, IV amiodarone, methylprednisolone PHYSICAL EXAMINATION: Blood pressure 108/60 heart rate 82, on BiPAP, not following verbal stimulation or commands, obtunded LUNGS: Clear to auscultation HEART: Regular rate and rhythm, S1, S2. No S3. Systolic ejection murmur ABDOMEN: Soft, nontender, no organomegaly EXTREMETIES: No edema LAB: Hemoglobin 14.1, potassium 4.7, BUN 42 3, creatinine 0.94, pH 7.24 with pCO2 above 98 IMPRESSION: 1. CVA, patient remains obtunded 2. Mild troponin elevation appears to be type II event 3. Respiratory failure, probably related to the stroke and COPD with worsening acidosis 4. History of COPD 5. History of hypertension 6. History of hyperlipidemia 7. Episode of paroxysmal atrial fibrillation, back in sinus mechanism, continues to be anticoagulated. It is unclear if the patient had paroxysmal atrial fibrillation before that could be the cause of her stroke PLAN: 1. Continue IV amiodarone for now 2. Continue IV heparin 3. Awaiting decision regarding intubation in view of the worsening respiratory status 4. Continue anticoagulation for now with IV heparin 5. Prognosis remains guarded Objective - Vital Signs Vital signs: Vital Signs Temp 97.8 F 03/16/24 04:00 Pulse 87 03/16/24 08:26 Resp 24 03/16/24 07:00 BP 108/61 03/16/24 07:00 Pulse Ox 97 03/16/24 08:16 FiO2 45 03/16/24 08:16 Intake & Output 03/15/24 03/16/24 03/16/24 18:59 06:59 18:59 Intake Total 2944.388 1118.202 163.202 Output Total 745 400 40 Balance 411.116 768.202 123.202 Weight 64.2 kg 66.5 kg Intake: IV 825 1100 75 Piperacillin-Tazobactam 3 200 .375 gm In Sodium Chloride 0.9% 100 ml @ 25 mls/hr IVPB Q8H [facility] Rx#: [id number] Sodium Chloride 0.9% 1, 825 900 75 000 ml @ 75 mls/hr IV . [id number] [facility] Rx#:[id number] Intake, IV Titration 331.116 68.202 88.202 Amount Amiodarone 450 mg In 231.116 Dextrose 5% in Water 250 ml @ 0.5 MG/MIN 16.667 mls/hr IV .Q15H [facility] Rx#: [id number] Heparin Sod,Pork in 0.45% 0 68.202 88.202 NaCl 25,000 unit In 0.45 % NaCl 1 250ml.bag @ 18 UNITS/KG/HR 11.538 mls/hr IV .[id number] [facility] Rx#: [id number] Piperacillin-Tazobactam 3 100 .375 gm In Sodium Chloride 0.9% 100 ml @ 25 mls/hr IVPB Q8H [facility] Rx#: [id number] Output: Urine 745 400 40 Other: Voiding Method Indwelling Catheter Indwelling Catheter - Labs CBC & Chem 7: 03/16/24 05:39 03/16/24 05:39 Labs: Abnormal Lab Results - Last 24 Hours (Table) 03/15/24 03/15/24 03/15/24 Range/Units 09:54 11:35 18:42 RBC (3.80-5.40) m/uL Hct (34.0-46.0) % MCHC (31.0-37.0) g/dL Lymphocytes # (Manual) (1.0-4.8) k/uL APTT (22.0-30.0) sec ABG pH 7.24 L (7.35-7.45) ABG pCO2 95 H* (35-45) mmHg ABG HCO3 41 H* (21-25) mmol/L ABG Total CO2 44 H (19-24) mmol/L ABG O2 Saturation (94-97) % Carbon Dioxide (22-30) mmol/L BUN (7-17) mg/dL Glucose (74-99) mg/dL POC Glucose (mg/dL) 159 H 157 H (70-110) mg/dL Calcium (8.4-10.2) mg/dL Total Protein (6.3-8.2) g/dL Albumin (3.5-5.0) g/dL 03/15/24 03/15/24 03/16/24 Range/Units 20:18 23:48 05:39 RBC 5.51 H (3.80-5.40) m/uL Hct 52.8 H (34.0-46.0) % MCHC 26.7 L (31.0-37.0) g/dL Lymphocytes # (Manual) 0.32 L (1.0-4.8) k/uL APTT 32.1 H (22.0-30.0) sec ABG pH (7.35-7.45) ABG pCO2 (35-45) mmHg ABG HCO3 (21-25) mmol/L ABG Total CO2 (19-24) mmol/L ABG O2 Saturation (94-97) % Carbon Dioxide (22-30) mmol/L BUN (7-17) mg/dL Glucose (74-99) mg/dL POC Glucose (mg/dL) 161 H (70-110) mg/dL Calcium (8.4-10.2) mg/dL Total Protein (6.3-8.2) g/dL Albumin (3.5-5.0) g/dL 03/16/24 03/16/24 03/16/24 Range/Units 05:39 05:39 05:57 RBC (3.80-5.40) m/uL Hct (34.0-46.0) % MCHC (31.0-37.0) g/dL Lymphocytes # (Manual) (1.0-4.8) k/uL APTT 97.7 H (22.0-30.0) sec ABG pH 7.14 L* (7.35-7.45) ABG pCO2 >98 H* (35-45) mmHg ABG HCO3 (21-25) mmol/L ABG Total CO2 (19-24) mmol/L ABG O2 Saturation 97.2 H (94-97) % Carbon Dioxide 38 H (22-30) mmol/L BUN 42 H (7-17) mg/dL Glucose 181 H (74-99) mg/dL POC Glucose (mg/dL) (70-110) mg/dL Calcium 7.9 L (8.4-10.2) mg/dL Total Protein 6.1 L (6.3-8.2) g/dL Albumin 3.2 L (3.5-5.0) g/dL 03/16/24 Range/Units 06:01 RBC (3.80-5.40) m/uL Hct (34.0-46.0) % MCHC (31.0-37.0) g/dL Lymphocytes # (Manual) (1.0-4.8) k/uL APTT (22.0-30.0) sec ABG pH (7.35-7.45) ABG pCO2 (35-45) mmHg ABG HCO3 (21-25) mmol/L ABG Total CO2 (19-24) mmol/L ABG O2 Saturation (94-97) % Carbon Dioxide (22-30) mmol/L BUN (7-17) mg/dL Glucose (74-99) mg/dL POC Glucose (mg/dL) 165 H (70-110) mg/dL Calcium (8.4-10.2) mg/dL Total Protein (6.3-8.2) g/dL Albumin (3.5-5.0) g/dL
--- NOTE | 2024-03-16 09:31 | P.PN ---
Subjective Progress Note Date: 03/16/24 Mirtha Ponce is a 73-year-old female patient who initially presented to her PCP with complaints of slurring of speech patient was directed to come to ER for further evaluation. At this time patient is in bed sleeping not following commands or answering questions. Family at bedside history obtained through them and medical records. According to family patient was found to be having slurred speech patient did not want to come to ER at that time so was taken to PCP. Per family patient is a heavy smoker but denies any alcohol or drug use. Denies any recent illness. Additional medical history includes COPD, hypertension. Head CT completed showing right parietal lobe acute/subacute CVA. EKG completed showing sinus rhythm. Chest x-ray completed showing cardiomegaly with pulmonary vascular congestion correlate with serum BNP COPD changes. Lab work revealing troponin 0.379, 0.429 and 0.436, white blood cell 5.7, hemoglobin 15.4 creatinine 0.56 bun 14. At this time neurology services have been consulted MRI of the brain has been ordered CTA of the carotids ordered. Will order 2D echo and consult cardiology services. Due to patient's increasing altered mental status changes and concerns for respiratory status we will consult pulmonary services. Patient's BNP also elevated at 6490 will give 1 dose of IV Lasix. Current vital signs temp 97.9, heart rate 96, respiratory rate 18, blood pressure 100/59 with a pulse ox of 95% on nonrebreather. On 03/13/2024 patient was seen and examined on the medical floor she is alert and oriented x 3 in no apparent distress, she has a low-grade fever of 99.4 pulse 108 respiration 22 blood pressure 123/61 pulse ox 91% on 6 L nasal cannula, she has cough, with minimal sputum production she denies any chest pain or shortness of breath no nausea or vomiting no abdominal pain no diarrhea and no urinary symptoms. At this time will keep patient n.p.o. for possible aspiration, will start IV Zosyn and repeat chest x-ray, infectious disease con sultation was added, will continue with IV heparin due to elevated troponin levels, awaiting cardiology input. Neurology consult reviewed. On 03/14/2024 patient remains lethargic in the intensive care unit. Patient was placed on BiPAP. Patient also started on IV Zosyn for concerns of aspiration pneumonia patient not following commands at this time recommendations for possible Dobbhoff placement in order to administer oral medications. Neurology services are following MRI has been ordered but cannot be performed while patient is on BiPAP and heparin. Critical care services following infectious disease, cardiology and neurology services following. Current vital signs temp 98.1, heart rate 96, respiratory rate 27, blood pressure 119/69 with a pulse ox of 96% on BiPAP with an FiO2 of 45%. Family at bedside all questions answered On 03/15/2024 patient was seen and examined in the intensive care unit, she is not responsive at this time she is maintained on BiPAP, vital examination r eveals a temperature of 97.9 pulse 89 respiration 24 blood pressure 110/62 pulse ox 99% on FiO2 45% White blood count is 8.7 hemoglobin 13.8 platelet count 249 arterial blood gas revealed a pH of 7.24 pCO2 95% PaO2 96%, BUN 43 creatinine 0.69. Patient is followed by neurology, infectious disease, cardiology and pulmonary critical care, she remains on IV heparin. CT scan of the brain, was repeated yesterday and reveals multiple subacute infarcts no acute bleed or mass effect, chest x-r ay done this morning reveals diffuse interstitial infiltrates. Prognosis is guarded. On 03/16/2024 patient remains in the intensive care unit ABGs continued to decline despite BiPAP. Plans for intubation today per critical care.. Family at bedside. Plan discussed with family and nursing staff. Patient remains on IV Zosyn and IV Cardizem. Prognosis remains guarded. Neurology, infectious disease, cardiology and critical care services are all following Objective - Vital Signs Vital signs: Vital Signs Temp 97.8 F 03/16/24 04:00 Pulse 87 03/16/24 08:26 Resp 24 03/16/24 07:00 BP 108/61 03/16/24 07:00 Pulse Ox 97 03/16/24 08:16 FiO2 45 03/16/24 08:16 Intake & Output 03/15/24 03/16/24 03/16/24 18:59 06:59 18:59 Intake Total 8625.573 9846.202 163.202 Output Total 745 400 40 Balance 411.116 768.202 123.202 Weight 64.2 kg 66.5 kg Intake: IV 825 1100 75 Piperacillin-Tazobactam 3 200 .375 gm In Sodium Chloride 0.9% 100 ml @ 25 mls/hr IVPB Q8H [facility] Rx#: [id number] Sodium Chloride 0.9% 1, 825 900 75 000 ml @ 75 mls/hr IV . [id number] [facility] Rx#:[id number] Intake, IV Titration 331.116 68.202 88.202 Amount Amiodarone 450 mg In 231.116 Dextrose 5% in Water 250 ml @ 0.5 MG/MIN 16.667 mls/hr IV .Q15H [facility] Rx#: [id number] Heparin Sod,Pork in 0.45% 0 68.202 88.202 NaCl 25,000 unit In 0.45 % NaCl 1 250ml.bag @ 18 UNITS/KG/HR 11.538 mls/hr IV .[id number] [facility] Rx#: [id number] Piperacillin-Tazobactam 3 100 .375 gm In Sodium Chloride 0.9% 100 ml @ 25 mls/hr IVPB Q8H [facility] Rx#: [id number] Output: Urine 745 400 40 Other: Voiding Method Indwelling Catheter Indwelling Catheter - Exam Head normocephalic Neck supple Lungs clear to auscultation bilaterally no wheezing or crackles Heart regular rate and rhythm S1-S2, no rub or gallop Abdomen is soft nontender nondistended positive bowel sounds no hepatosplenomegaly Extremities no edema Neuro patient is unresponsive - Labs CBC & Chem 7: 03/16/24 05:39 03/16/24 05:39 Labs: Abnormal Lab Results - Last 24 Hours (Table) 03/15/24 03/15/24 03/15/24 Range/Units 09:54 11:35 18:42 RBC (3.80-5.40) m/uL Hct (34.0-46.0) % MCHC (31.0-37.0) g/dL Lymphocytes # (Manual) (1.0-4.8) k/uL APTT (22.0-30.0) sec ABG pH 7.24 L (7.35-7.45) ABG pCO2 95 H* (35-45) mmHg ABG HCO3 41 H* (21-25) mmol/L ABG Total CO2 44 H (19-24) mmol/L ABG O2 Saturation (94-97) % Carbon Dioxide (22-30) mmol/L BUN (7-17) mg/dL Glucose (74-99) mg/dL POC Glucose (mg/dL) 159 H 157 H (70-110) mg/dL Calcium (8.4-10.2) mg/dL Total Protein (6.3-8.2) g/dL Albumin (3.5-5.0) g/dL 03/15/24 03/15/24 03/16/24 Range/Units 20:18 23:48 05:39 RBC 5.51 H (3.80-5.40) m/uL Hct 52.8 H (34.0-46.0) % MCHC 26.7 L (31.0-37.0) g/dL Lymphocytes # (Manual) 0.32 L (1.0-4.8) k/uL APTT 32.1 H (22.0-30.0) sec ABG pH (7.35-7.45) ABG pCO2 (35-45) mmHg ABG HCO3 (21-25) mmol/L ABG Total CO2 (19-24) mmol/L ABG O2 Saturation (94-97) % Carbon Dioxide (22-30) mmol/L BUN (7-17) mg/dL Glucose (74-99) mg/dL POC Glucose (mg/dL) 161 H (70-110) mg/dL Calcium (8.4-10.2) mg/dL Total Protein (6.3-8.2) g/dL Albumin (3.5-5.0) g/dL 03/16/24 03/16/24 03/16/24 Range/Units 05:39 05:39 05:57 RBC (3.80-5.40) m/uL Hct (34.0-46.0) % MCHC (31.0-37.0) g/dL Lymphocytes # (Manual) (1.0-4.8) k/uL APTT 97.7 H (22.0-30.0) sec ABG pH 7.14 L* (7.35-7.45) ABG pCO2 >98 H* (35-45) mmHg ABG HCO3 (21-25) mmol/L ABG Total CO2 (19-24) mmol/L ABG O2 Saturation 97.2 H (94-97) % Carbon Dioxide 38 H (22-30) mmol/L BUN 42 H (7-17) mg/dL Glucose 181 H (74-99) mg/dL POC Glucose (mg/dL) (70-110) mg/dL Calcium 7.9 L (8.4-10.2) mg/dL Total Protein 6.1 L (6.3-8.2) g/dL Albumin 3.2 L (3.5-5.0) g/dL 03/16/24 Range/Units 06:01 RBC (3.80-5.40) m/uL Hct (34.0-46.0) % MCHC (31.0-37.0) g/dL Lymphocytes # (Manual) (1.0-4.8) k/uL APTT (22.0-30.0) sec ABG pH (7.35-7.45) ABG pCO2 (35-45) mmHg ABG HCO3 (21-25) mmol/L ABG Total CO2 (19-24) mmol/L ABG O2 Saturation (94-97) % Carbon Dioxide (22-30) mmol/L BUN (7-17) mg/dL Glucose (74-99) mg/dL POC Glucose (mg/dL) 165 H (70-110) mg/dL Calcium (8.4-10.2) mg/dL Total Protein (6.3-8.2) g/dL Albumin (3.5-5.0) g/dL Assessment and Plan Assessment: 1. Slurred speech and altered mental status changes likely secondary from CVA 2. Acute CHF exacerbation 3. Elevated troponins 4. Ongoing nicotine dependence greater than 1 pack/day 5. History of COPD 6. History of essential hypertension 7. Concerns of aspiration pneumonia patient started on IV Zosyn infectious disease service is consulted Neurology, cardiology and pulmonary services consulted 2D echo and MRI of the brain ordered Patient started on heparin drip Patient remains on IV Zosyn Patient currently on BiPAP Remains in the intensive care unit Repeat labs ordered PT and OT services consulted
[2024-03-16] MEDS: NOREPINEPHRINE 4 MG in SODIUM CHLORIDE 0.9% 250 ML IV SCH (10:40)
--- NOTE | 2024-03-16 10:46 | XR ---
EXAMINATION TYPE: XR chest 1V portable DATE OF EXAM: 03/16/2024 COMPARISON: 03/16/2024 CLINICAL INDICATION: Female, 73 years old with history of tube placement; TECHNIQUE: Single frontal view of the chest is obtained. FINDINGS: ET tube is 6 cm above the geoffrey. There is an NG tube in stomach. There is a left central v enous catheter tip in the SVC/RA junction. There is no change in the diffuse interstitial process present question diffuse interstitial edema or interstitial pneumonia. There is no pneumothorax. There is no significant pleural effusion. The osseous structures are intact. IMPRESSION: 1. ET tube 6 cm above the geoffrey. NG tube within the stomach. Central venous catheter tip in the SVC/ RA junction. 2. Stable marked diffuse interstitial process recent question of pulmonary edema or interstitial pneu monia. [facility], , 03/16/2024 10:44 AM
[2024-03-16 10:52] LABS: ABG Base Excess 7.2 mmol/L; ABG HCO3 37 mmol/L (21-25); ABG PH 7.29 (7.35-7.45); ABG PO2 374 mmHg (83-108); ABG TCO2 39 mmol/L (19-24); Allen Test Performed? Yes
[2024-03-16 10:55] LABS: ABG PCO2 76 mmHg (35-45)
[2024-03-16] MEDS: FUROSEMIDE 10 MG/ML 4 ML VIAL IV STA (11:49)
--- NOTE | 2024-03-16 12:17 | P.PN ---
Subjective Progress Note Date: 03/16/24 This is a 73-year-old female patient, a chronic smoker smokes around 1.5 packs of cigarettes on a daily basis, known to have COPD, nevertheless, does not utilize any form of respiratory medications or inhalers on outpatient basis. Denies having any home O2. Most of the information was obtained from the son at the bedside who also happens to be a poor historian. The patient came into the hospital because of slurred speech and she was not following commands and she was altered. The patient had no fever. No headaches. No neck stiffness. CAT scan of the head showed a right parietal lobe acute/subacute infarcts. She was in normal sinus rhythm. At the same time, the patient was found to have elevated troponins of 0.3, 0.4 and 0.4 respectively x 3. The white cell count was at 5.7 with a hemoglobin 15.4 and the patient had a normal creatinine of 0.56 with a BUN of 14. Neurology was involved in her case and the patient was given a CTA of the brain that showed no evidence of any dissection of the cervical and the vertebral arteries and there was no evidence of any significant stenosis in the carotids or in the intracranial arteries. There was however an area of atelectasis in the left upper lobe and this is based on the partial visualization of the lung windows done on the CAT scan of the head and neck. The patient is quite hypoxic and she is currently on 5 L of oxygen by nasal cannula with pulse ox 92%. Based on those findings, pulmonary consultation was requested. Her proBNP level is 6490. She is currently on IV heparin based on elevated troponins. She is also on aspirin. Cardiology is also on the case. Echocardiogram was done and the patient was found to have a normal LV function, severe RV dilatation and evidence of severe pulmonary hypertension. 03/13/2024, the patient is being seen for a follow-up. The patient is more lethargic compared to yesterday. The time of my evaluation, the patient was also tachypneic and had diminished level of consciousness. Her respiratory efforts were becoming more labored. Based on that, a blood gas was done while the patient was on oxygen at 5 L and the patient was found to have significant respiratory acidosis and there was evidence of an acute on top of chronic hypercapnic respiratory failure with a pH of 7.28 and pCO2 of 80 and pO2 of 82. Based on that, made recommendations for this patient to be transferred to the intensive care unit and started on a BiPAP. She is on DuoNeb the regiment [id number]. Will start IV Solu-Medrol. Will continue IV Zosyn. I requested a CT angiogram of the chest and this was not completed as the patient was not found to be stable enough to be transferred for a CTA of the chest. Chest x-ray from today shows cardiomegaly and pulm venous congestion and the patient will be given a dose of Lasix. After transfer to the ICU, the patient was given a Luevano catheter and immediately there was a total of 2 L of urine output obtained. Patient was also seen by neurology. The patient is quite lethargic. She is not hypercapnic respiratory failure. CAT scan of the brain showed a right parietal as well as left precentral gyrus infarct. She is not conversing at this point in time. She withdraws to painful stimulation. No seizure activity has been noted. Patient remains on IV heparin. MRI of the brain to be obtained later stage. On 03/14/2024, the patient is still on a BiPAP at a pressure of 12/5 with an FiO2 of 45%. Mental status is still impaired and the patient is quite lethargic and encephalopathic. She is not responding to any verbal stimulation. She grimaces only to deep painful stimulation. Her level of aggressiveness is quite impaired at this point in time. Based on that, repeat CAT scan of the brain was ordered and the patient was found to have multiple subacute infarct with mild progression without evidence of any bleeding. There was focal areas of decreased density in the left posterior frontal white matter and cortex consistent with subacute infarct. There is also changes involving the subcortical white matter of the left parietal lobe and right posterior temporal lobe. All consistent with subacute infarct. The patient is currently on aspirin. The patient remains on bronchodilators. The patient remains on steroids. The patient had a CT of the chest yesterday that showed no evidence of any pulmonary embolism. The previous described consolidation left upper lobe was not seen. There is cardiomegaly and small bilateral pleural effusion and interlobular septal thickening suggestive of mild interstitial edema. There is some atelectatic changes in lung bases bilaterally and dilated pulmonary arteries. A follow-up blood gas was also done that showed a pH of 7.31 with a pCO2 of 89 and pO2 of 93. The white cell count is 6.1 with a heme of 14.7 and a platelet count of 274. Sodium is at 138, potassium is at 5.1. BUN 36 with a creatinine of 0.8. Potassium level is at 5.1. She remains NPO. Breathing remains somewhat labored and the patient is generating approximately 300 cc of tidal volume while being on the BiPAP with a respirate of 28 and she carries a high minute ventilation. Echocardiogram was done on 03/12/2024 and it showed a preserved LV function, mild to moderate tricuspid regurgitation and severe pulmonary pretension. No evidence of any PFO or intracardiac shunts. On 03/15/2024, the patient is still very obtunded. 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 She remains on a BiPAP at a pressure of 12/5 with an FiO2 of 45%. She remains in acute on chronic hypercapnic respiratory failure and a follow-up blood gas from today showed a pH of 7.24 with a pCO2 of 95 and a pO2 of 96 with an FiO2 of 45%. Chest x-ray from today shows no significant interval change. It is consistent with COPD and there is increased interstitial markings bilaterally. Doppler of the lower extremity showed no evidence of any DVT. Noted, yesterday evening, the patient went into atrial fibrillation with rapid ventricular response. Initially started on a Cardizem drip and currently the patient on amiodarone 0.5 mg/min. Cardiac rhythm is back to sinus. The patient was also on IV heparin. The patient encountered hematuria which seems to be improving at this point. IV heparin was discontinued briefly and the patient will be restarted back on IV heparin. She remains on IV Zosyn as a broad-spectrum antibiotic coverage. She remains on bronchodilators with DuoNeb updrafts and IV Solu-Medrol. Labs from today show a white cell count of 8.7 with a hemoglobin 13.8 and a platelet count of 249. BUN is 43 with a creatinine of 0.69. Serum bicarb to 38 and a sodium levels at 140 and a potassium level is at 5.1. LFTs are essentially within normal limits. Neurologist on the case. Echocardiogram showed preserved LV function with severe pulmonary hypertension. Patient remains NPO. Mental status is quite diminished and the patient is unable to come off the BiPAP and unable to take any oral feeds or swallow medication at this point in time. Aspirin is being given rectally at this point. On 03/16/2024, the patient remains quite unresponsive. Remains on BiPAP. Barely responsive to painful stimulation. Mental status is significantly diminished. She remains on a BiPAP pressure of 12/5 with an FiO2 of 40%. Generated tidal volumes noted of 200 cc. The blood gas from today showed a pH of 7.14 with a pCO2 of above 98 and pO2 of 101. Based on that, I do lengthy discussion with the family and recommended intubation mechanical ventilation while the patient's stroke evolves further. The chest x-ray from today shows COPD with diffuse increased interstitial infiltrates bilaterally. This could be fluid versus interstitial pneumonia and the patient remains on IV Zosyn. The patient's cardiac rhythm is sinus. No further episodes of atrial fibrillation has been noted and the patient remains on IV heparin. IV fluids are in the form of normal saline at rate of 75 cc an hour. She remains on bronchodilators. She remains on systemic steroids. A follow-up CAT scan of the brain was done yesterday and it showed evidence of subacute multiple infarcts and there was no evidence of any bleeding. Based on all this, the patient was intubated and currently is on assist-control mode of mechanical ventilation at rate of 24, tidal volume of 400 with a PEEP of 5 and FiO2 of 100%. Postintubation blood gas showed a pH of 7.29 with a pCO2 of 76 and pO2 of 374. FiO2 will be gradually weaned. Triple-lumen catheter and a arterial line was also inserted. Enteral feeding will be also initiated. She remains on aspirin. She remains on statins. Objective - Vital Signs Vital signs: Vital Signs Temp 97.8 F 03/16/24 04:00 Pulse 87 03/16/24 08:26 Resp 24 03/16/24 07:00 BP 108/61 03/16/24 07:00 Pulse Ox 97 03/16/24 08:16 FiO2 60 03/16/24 10:57 Intake & Output 03/15/24 03/16/24 03/16/24 18:59 06:59 18:59 Intake Total 0411.655 9127.202 186.993 Output Total 745 400 40 Balance 411.116 768.202 146.993 Weight 64.2 kg 66.5 kg Intake: IV 825 1100 75 Piperacillin-Tazobactam 3 200 .375 gm In Sodium Chloride 0.9% 100 ml @ 25 mls/hr IVPB Q8H ROSAL[facility] Rx#: [id number] Sodium Chloride 0.9% 1, 825 900 75 000 ml @ 75 mls/hr IV . [id number] ROSALINE Rx#:[id number] Intake, IV Titration 331.116 68.202 111.993 Amount Amiodarone 450 mg In 231.116 Dextrose 5% in Water 250 ml @ 0.5 MG/MIN 16.667 mls/hr IV .Q15H ROSALINE Rx#: [id number] Heparin Sod,Pork in 0.45% 0 68.202 111.993 NaCl 25,000 unit In 0.45 % NaCl 1 250ml.bag @ 18 UNITS/KG/HR 11.538 mls/hr IV .[id number] ROSALINE Rx#: [id number] Piperacillin-Tazobactam 3 100 .375 gm In Sodium Chloride 0.9% 100 ml @ 25 mls/hr IVPB Q8H ROSALINE Rx#: [id number] Output: Urine 745 400 40 Other: Voiding Method Indwelling Catheter Indwelling Catheter - Exam The patient is currently intubated on the mechanical ventilator. Orogastric and orotracheal tube are both in place. Head exam is unremarkable. No scleral icterus or corneal arcus noted. Neck is without jugular venous distension, thyromegaly, or carotid bruits. Carotid upstrokes are brisk bilaterally. Lungs diminished breath sounds bilaterally Cardiac exam reveals the PMI to be normally sized and situated. Rhythm is regular. First and second heart sounds normal. No murmurs, rubs or gallops. Abdominal exam reveals normal bowel sounds, no masses, no organomegaly and no aortic enlargement. Extremities are nonedematous and both femoral and pedal pulses are normal. Examination of the skin revealed no evidence of significant rashes, suspicious appearing nevi or other concerning lesions. Neurologically, the patient is quite sleepy and lethargic. According to the son at the bedside, she was able to converse with him earlier. Pupils are equal reactive to light. No facial asymmetry. Speech could not be assessed. Strength and motor function seems to be symmetrical bilaterally. No Babinski. Sensory functions cannot be accurately assessed. Neurologic function essentially unchanged compared to yesterday. Based on that, it was decided to proceed with intubation mechanical ventilation. A low-dose of sedation will be also initiated and the patient will be started on low-dose propofol to maintain synchrony with mechanical ventilator. - Labs CBC & Chem 7: 03/16/24 05:39 03/16/24 05:39 Labs: Abnormal Lab Results - Last 24 Hours (Table) 03/15/24 03/15/24 03/15/24 Range/Units 18:42 20:18 23:48 RBC (3.80-5.40) m/uL Hct (34.0-46.0) % MCHC (31.0-37.0) g/dL Lymphocytes # (Manual) (1.0-4.8) k/uL APTT 32.1 H (22.0-30.0) sec ABG pH (7.35-7.45) ABG pCO2 (35-45) mmHg ABG pO2 (83-108) mmHg ABG HCO3 (21-25) mmol/L ABG Total CO2 (19-24) mmol/L ABG O2 Saturation (94-97) % Carbon Dioxide (22-30) mmol/L BUN (7-17) mg/dL Glucose (74-99) mg/dL POC Glucose (mg/dL) 157 H 161 H (70-110) mg/dL Calcium (8.4-10.2) mg/dL Total Protein (6.3-8.2) g/dL Albumin (3.5-5.0) g/dL 03/16/24 03/16/24 03/16/24 Range/Units 05:39 05:39 05:39 RBC 5.51 H (3.80-5.40) m/uL Hct 52.8 H (34.0-46.0) % MCHC 26.7 L (31.0-37.0) g/dL Lymphocytes # (Manual) 0.32 L (1.0-4.8) k/uL APTT 97.7 H (22.0-30.0) sec ABG pH (7.35-7.45) ABG pCO2 (35-45) mmHg ABG pO2 (83-108) mmHg ABG HCO3 (21-25) mmol/L ABG Total CO2 (19-24) mmol/L ABG O2 Saturation (94-97) % Carbon Dioxide 38 H (22-30) mmol/L BUN 42 H (7-17) mg/dL Glucose 181 H (74-99) mg/dL POC Glucose (mg/dL) (70-110) mg/dL Calcium 7.9 L (8.4-10.2) mg/dL Total Protein 6.1 L (6.3-8.2) g/dL Albumin 3.2 L (3.5-5.0) g/dL 03/16/24 03/16/24 03/16/24 Range/Units 05:57 06:01 10:49 RBC (3.80-5.40) m/uL Hct (34.0-46.0) % MCHC (31.0-37.0) g/dL Lymphocytes # (Manual) (1.0-4.8) k/uL APTT (22.0-30.0) sec ABG pH 7.14 L* 7.29 L (7.35-7.45) ABG pCO2 >98 H* 76 H* (35-45) mmHg ABG pO2 374 H (83-108) mmHg ABG HCO3 37 H (21-25) mmol/L ABG Total CO2 39 H (19-24) mmol/L ABG O2 Saturation 97.2 H 100.0 H (94-97) % Carbon Dioxide (22-30) mmol/L BUN (7-17) mg/dL Glucose (74-99) mg/dL POC Glucose (mg/dL) 165 H (70-110) mg/dL Calcium (8.4-10.2) mg/dL Total Protein (6.3-8.2) g/dL Albumin (3.5-5.0) g/dL Assessment and Plan Plan: Acute CVA. Patient presented with altered mentation and slurred speech.Initial CAT scan of the brain showed evidence of a acute/subacute stroke involving the right parietal lobe. CT angiogram of the brain showed no evidence of any significant stenosis or dissection involving the carotids and the intracranial vessels. The patient remains to have a l diminished level of consciousness and she is unresponsive to verbal and she grimaces only to deep painful stimulation.. Her blood gas, there is also a component of an acute on top of chronic respiratory acidosis. A repeat CAT scan of the brain was done and it was consistent with Multiple subacute infarct with mild progression with areas of decreased density involving the left posterior frontal lobe, left parietal lobe, and right posterior temporal lobe consistent with subacute infarct. Patient had also an episode of atrial fibrillation with RVR and she is back in normal sinus rhythm. Rule out embolic phenomena with multi infarct based on underlying atrial fibrillation. Patient is currently on IV heparin. Paroxysmal atrial fibrillation, current rhythm is sinus and the patient remains on IV heparin Hematuria, currently inactive, IV heparin has been resumed, no active hematuria for now COPD with likely chronic hypoxic and hypercapnic respiratory failure, please refer to the blood gases done this morning. There is a component of an acute on top of chronic hypercapnic respiratory failure, the patient failed BiPAP therapy and the patient is currently intubated on mechanical ventilator. She developed significant respiratory acidosis while being on a BiPAP and currently she is on mechanical ventilator with assist-control mode of mechanical ventilation, volume-cycled with subsequent improvement in oxygenation and acid-base status. Will monitor the blood gases. Chronic hypoxic respiratory failure, not utilizing oxygen on outpatient basis Acute on top of chronic hypercapnic respiratory failure due to COPD exacerbation. CT of the chest shows no evidence of any pulm embolism, some increased pulm vascular markings bilaterally along with cardiomegaly and evidence of pulm hypertension. Chronic smoker and the patient smokes around 1.5 packs of cigarettes on a daily basis Severe pulmonary hypertension, this could be related to chronic hypoxemia and group 3 pulmonary hypertension. The baseline oxygenation status is not known. Nevertheless the patient is known to have COPD and possibly chronic hypoxemic respiratory failure. CT of the chest shows no evidence of any pulmonary embolism. Abnormal troponins, currently on IV heparin and EKG showing normal sinus rhythm without any acute ST segment elevation. There is evidence of old anteroseptal infarct based on EKG findings. Hypertension Hyperlipidemia Plan Continue mechanical ventilation Low-dose propofol Pressors if needed should the patient develop any hypotension postintubation Initiate enteral feeding for nutritional support IV heparin to be continued and the hematuria will be monitored Continue aspirin CT scan of the brain was noted and is consistent with multiple subacute infarcts and the patient would benefit from a BRIAN at a later stage. Doppler of the lower extremity been negative Obtain follow-up CAT scan of the brain in a.m. and neurologist on the case management director the blood gas Continue DuoNeb nebulized treatments [id number] Continue IV Solu-Medrol Continue IV Zosyn Monitor mental status Family has been updated on the condition and the son is at the bedside Condition is critical and this evaluation was done more than 30 minutes. Time with Patient: Greater than 30
--- NOTE | 2024-03-16 12:19 | P.PCN ---
Date of Procedure: 03/16/24 Preoperative Diagnosis: Acute respiratory failure, acute on chronic respiratory acidosis and hypoxic respiratory failure Postoperative Diagnosis: Same Procedure(s) Performed: Endotracheal intubation Central line insertion Arterial line insertion Anesthesia: local Surgeon: Renee Lopez Estimated Blood Loss (ml): 0 Condition: critical Disposition: ICU Operative Findings: Indication: Respiratory compromise. A time-out was completed verifying correct patient, procedure, site, positioning, and implant(s) or special equipment if applicable. The patient was positioned appropriately and a #8 endotracheal tube was placed under direct laryngoscopy. The tube was anchored at 22 cm at the teeth. Co rrect placement was confirmed by presence of bilateral breath sounds without air sounds in the abdomen on auscultation. An end-tidal CO2 monitor was also used to confirm tracheal placement of the ET tube. A chest x-ray was ordered to assess for pneumothorax and verify endotracheal tube placement. The patient tolerated the procedure well and there were no complications. Indication: Hemodynamic monitoring/Intravenous access. A time-out was completed verifying correct patient, procedure, site, positioning, and implant(s) or special equipment if applicable. The patient was placed in a dependent position appropriate for triple lumen catheter placement based on the vein to be cannulated. The patient's left internal jugular area was prepped and draped in sterile fashion. 1% Lidocaine was used to anesthetize the surrounding skin area. A triple lumen 9F Cordis catheter was introduced into the internal jugular vein using Seldinger technique. The catheter was threaded smoothly over the guide wire and appropriate blood return was obtained. Each lumen of the catheter was evacuated of air and flushed with sterile saline. The catheter was then sutured in place to the skin and a sterile dressing applied. Perfusion to the extremity distal to the point of catheter insertion was checked and found to be adequate. Indication: Hemodynamic monitoring. A time-out was completed verifying correct patient, procedure, site, positioning, and implant(s) or special equipment if applicable. Allens test was performed to ensure adequate perfusion. The patients left wrist was prepped and draped in sterile fashion. 1% Lidocaine was used to anesthetize the area. An 18G Arrow arterial line was introduced into the left radial artery. The catheter was threaded over the guide wire and the needle was removed with appropriate pulsatile blood return. Blood loss was minimal. The catheter was then sutured in place to the skin and a sterile dressing applied. Perfusion to the extremity distal to the point of catheter insertion was checked and found to be adequate. The patient tolerated the procedure well and there were no complications.
[2024-03-16] MEDS: METOPROLOL TARTRATE 25 MG TAB PO SCH (12:46)
--- NOTE | 2024-03-16 12:57 | P.PN ---
Subjective Progress Note Date: 03/16/24 Principal diagnosis: Reason for follow-up is pneumonia Patient is a 73-year-old female with a past medical history significant for COPD hypertension hyperlipidemia patient was brought into the hospital for evaluation of mental status changes and was being worked up for stroke did have worsening of respiratory status concerning for aspiration prompted this consultation. Patient did have worsening of her respiratory status got intubated on 03/16/2024 On today's evaluation 03/16/2024, Patient is afebrile patient is on the ventilator FiO2 currently at 60% did have some frothy sputum as reported by the ambulatory technologist which has been sent for culture no vomiting or diarrhea has been completed by the nursing staff. Patient white count is 7.9 creatinine is 0.94 liver enzymes are normal Objective - Vital Signs Vital signs: Vital Signs Temp 97.8 F 03/16/24 04:00 Pulse 111 H 03/16/24 12:40 Resp 14 03/16/24 12:00 BP 107/64 03/16/24 12:00 Pulse Ox 100 03/16/24 12:00 FiO2 60 03/16/24 12:33 Intake & Output 03/15/24 03/16/24 03/16/24 18:59 06:59 18:59 Intake Total 5862.914 4246.202 186.993 Output Total 745 400 40 Balance 411.116 768.202 146.993 Weight 64.2 kg 66.5 kg Intake: IV 825 1100 75 Piperacillin-Tazobactam 3 200 .375 gm In Sodium Chloride 0.9% 100 ml @ 25 mls/hr IVPB Q8H [facility] Rx#: [id number] Sodium Chloride 0.9% 1, 825 900 75 000 ml @ 75 mls/hr IV . [id number] [facility] Rx#:[id number] Intake, IV Titration 331.116 68.202 111.993 Amount Amiodarone 450 mg In 231.116 Dextrose 5% in Water 250 ml @ 0.5 MG/MIN 16.667 mls/hr IV .Q15H [facility] Rx#: [id number] Heparin Sod,Pork in 0.45% 0 68.202 111.993 NaCl 25,000 unit In 0.45 % NaCl 1 250ml.bag @ 18 UNITS/KG/HR 11.538 mls/hr IV .[id number] [facility] Rx#: [id number] Piperacillin-Tazobactam 3 100 .375 gm In Sodium Chloride 0.9% 100 ml @ 25 mls/hr IVPB Q8H [facility] Rx#: [id number] Output: Urine 745 400 40 Other: Voiding Method Indwelling Catheter Indwelling Catheter ABP, PAP, CO, CI - Last Documented Arterial Blood Pressure 134/56 - Exam GENERAL DESCRIPTION: An elderly female intubated on the vent RESPIRATORY SYSTEM: Unlabored breathing , decreased breath sounds at bases HEART: S1 S2 regular rate and rhythm , ABDOMEN: Soft , no tenderness EXTREMITIES: No edema feet - Labs CBC & Chem 7: 03/16/24 05:39 03/16/24 05:39 Labs: Abnormal Lab Results - Last 24 Hours (Table) 03/15/24 03/15/24 03/15/24 Range/Units 18:42 20:18 23:48 RBC (3.80-5.40) m/uL Hct (34.0-46.0) % MCHC (31.0-37.0) g/dL Lymphocytes # (Manual) (1.0-4.8) k/uL APTT 32.1 H (22.0-30.0) sec ABG pH (7.35-7.45) ABG pCO2 (35-45) mmHg ABG pO2 (83-108) mmHg ABG HCO3 (21-25) mmol/L ABG Total CO2 (19-24) mmol/L ABG O2 Saturation (94-97) % Carbon Dioxide (22-30) mmol/L BUN (7-17) mg/dL Glucose (74-99) mg/dL POC Glucose (mg/dL) 157 H 161 H (70-110) mg/dL Calcium (8.4-10.2) mg/dL Total Protein (6.3-8.2) g/dL Albumin (3.5-5.0) g/dL 03/16/24 03/16/24 03/16/24 Range/Units 05:39 05:39 05:39 RBC 5.51 H (3.80-5.40) m/uL Hct 52.8 H (34.0-46.0) % MCHC 26.7 L (31.0-37.0) g/dL Lymphocytes # (Manual) 0.32 L (1.0-4.8) k/uL APTT 97.7 H (22.0-30.0) sec ABG pH (7.35-7.45) ABG pCO2 (35-45) mmHg ABG pO2 (83-108) mmHg ABG HCO3 (21-25) mmol/L ABG Total CO2 (19-24) mmol/L ABG O2 Saturation (94-97) % Carbon Dioxide 38 H (22-30) mmol/L BUN 42 H (7-17) mg/dL Glucose 181 H (74-99) mg/dL POC Glucose (mg/dL) (70-110) mg/dL Calcium 7.9 L (8.4-10.2) mg/dL Total Protein 6.1 L (6.3-8.2) g/dL Albumin 3.2 L (3.5-5.0) g/dL 03/16/24 03/16/24 03/16/24 Range/Units 05:57 06:01 10:49 RBC (3.80-5.40) m/uL Hct (34.0-46.0) % MCHC (31.0-37.0) g/dL Lymphocytes # (Manual) (1.0-4.8) k/uL APTT (22.0-30.0) sec ABG pH 7.14 L* 7.29 L (7.35-7.45) ABG pCO2 >98 H* 76 H* (35-45) mmHg ABG pO2 374 H (83-108) mmHg ABG HCO3 37 H (21-25) mmol/L ABG Total CO2 39 H (19-24) mmol/L ABG O2 Saturation 97.2 H 100.0 H (94-97) % Carbon Dioxide (22-30) mmol/L BUN (7-17) mg/dL Glucose (74-99) mg/dL POC Glucose (mg/dL) 165 H (70-110) mg/dL Calcium (8.4-10.2) mg/dL Total Protein (6.3-8.2) g/dL Albumin (3.5-5.0) g/dL Assessment and Plan (1) Aspiration pneumonia Current Visit: Yes Status: Acute Code(s): J69.0 - PNEUMONITIS DUE TO INHALATION OF FOOD AND VOMIT SNOMED Code(s): 225573164 Plan: 1patient with worsening respiratory status and this patient initially brought into the hospital with slurred speech and being worked up for a CVA with worsening of respiratory status requiring BiPAP and a question of possible aspiration. 2patient did have CT angiogram of the chest shows consolidation concerning for pneumonia possible aspiration repeat CT of the brain concerning for subacute infarct with some progression neurology is following the patient 3patient did have worsening of respiratory status requiring intubation sputum culture has been obtained which will be followed 4patient will be treated with Zosyn while waiting for the culture to finalize Family at the bedside questions answered Dictation was produced using [employer] dictation software. please excuse any grammatical, word or spelling errors. Time with Patient: Less than 30
[2024-03-16 13:13] LABS: Glucose,Whole Blood 169 mg/dL (70-110)
[2024-03-16 18:25] LABS: Glucose,Whole Blood 188 mg/dL (70-110)
[2024-03-16] MEDS: CHLORHEXIDINE GLUCONATE 15 ML CUP MUCOUS MEM SCH (20:38)
[2024-03-17 00:07] LABS: Glucose,Whole Blood 183 mg/dL (70-110)
[2024-03-17] MEDS: AMIODARONE 450 MG in DEXTROSE 5% IN WATER 250 ML IV SCH (03:19)
[2024-03-17 05:06] LABS: ABG Base Excess 7.5 mmol/L; ABG HCO3 32 mmol/L (21-25); ABG Oxygen Saturation 98.4 % (94-97); ABG PCO2 45 mmHg (35-45); ABG PH 7.47 (7.35-7.45); ABG PO2 93 mmHg (83-108); ABG TCO2 34 mmol/L (19-24); Allen Test Performed? Yes
[2024-03-17 05:21] LABS: Basophils % (A) 0 %; Eosinophils % (A) 0 %; HCT 46.1 % (34.0-46.0); HGB 13.5 gm/dL (11.4-16.0); Hypochromasia Marked; Lymphocytes # (A) 0.2 k/uL (1.0-4.8); Lymphocytes % (A) 3 %; MCHC 29.3 g/dL (31.0-37.0); Mean Platelet Volume 7.8; Monocytes # (A) 0.3 k/uL (0-1.0); Monocytes % (A) 4 %; Neutrophils # (A) 7.1 k/uL (1.3-7.7); Neutrophils % (A) 92 %; Platelet Count 169 k/uL (150-450); RDW 15.4 % (11.5-15.5); WBC 7.7 k/uL (3.8-10.6)
[2024-03-17 05:22] LABS: MCV 88.7 fL (80.0-100.0)
[2024-03-17 05:31] LABS: ALT 10 U/L (4-34); AST 14 U/L (14-36); African American GFR (CKD) 81 (>60 ml/min/1.73 sqM); Albumin 2.8 g/dL (3.5-5.0); Alkaline Phosphatase 44 U/L (38-126); Anion Gap 0 mmol/L; Blood Urea Nitrogen 40 mg/dL (7-17); Carbon Dioxide 33 mmol/L (22-30); Chloride 106 mmol/L (98-107); Glucose 202 mg/dL (74-99); Non-African American GFR(CKD) 70 (>60 ml/min/1.73 sqM); Potassium 3.5 mmol/L (3.5-5.1); Sodium 139 mmol/L (137-145); Total Bilirubin 0.9 mg/dL (0.2-1.3); Total Protein 5.3 g/dL (6.3-8.2)
[2024-03-17] MEDS ORDERED: Potassium Replacement Protocol 1 EACH MISC MISCELLANE PRN (05:51)
[2024-03-17] MEDS: POTASSIUM BICARBONATE/CIT AC 20 MEQ TABLET.EFF NG-TUBE SCH (06:11)
[2024-03-17 06:17] LABS: Glucose,Whole Blood 194 mg/dL (70-110)
--- NOTE | 2024-03-17 08:57 | XR ---
EXAMINATION TYPE: XR chest 1V portable DATE OF EXAM: 03/17/2024 5:35 AM COMPARISON: 03/16/2024 CLINICAL INDICATION: Female, 73 years old with history of Tube placement, FINDINGS: ET tube tip 4.6 cm from the geoffrey. Left IJ CVC tip cavoatrial junction. NG tube courses below the di aphragm. Patient rotated towards the left. Heart borderline in size. Hyperinflation. Diffuse intersti tial opacities persist. Patchy right basilar opacity shows some improvement. Patchy retrocardiac opac ity persists., IMPRESSION: 1. Satisfactory ET tube, tip 4.6 cm from the geoffrey. 2. COPD with ongoing interstitial opacities throughout. 3. Some improving aeration of the right base. Ongoing patchy left basilar/retrocardiac opacity. [facility], , 03/17/2024 8:55 AM
[2024-03-17] MEDS ORDERED: ASPIRIN 81 MG OG-TUBE STA (11:17)
[2024-03-17] MEDS ORDERED: ASPIRIN 81 MG OG-TUBE SCH (11:30)
--- NOTE | 2024-03-17 11:34 | PN ---
PROGRESS NOTE SUBJECTIVE: Mirtha is a 73-year-old lady with history of hypertension, dyslipidemia, CVA, who is in the ICU, on BiPAP, not really responding to any stimuli. She has history of paroxysmal atrial fibrillation, but is currently in sinus rhythm. She is on IV heparin for the same. OBJECTIVE: GENERAL: On exam, the patient is mechanically ventilated. VITAL SIGNS: Heart rate is 60 beats per minute, blood pressure is 130/72, and respiratory rate is 18. CHEST: Reveals diminished air entry at the bases. HEART: Reveals first and second heart sounds. Regular rhythm. ABDOMEN: Soft. EXTREMITIES: Reveal mild bilateral leg edema. LABORATORY DATA: Labs showed a hemoglobin of 13.5, platelet count is 169. Potassium is 3.5, BUN is 40, creatinine is 0.8. MEDICATIONS: The patient is currently on: 1. IV amiodarone. 2. Aspirin. 3. Lipitor. 4. IV heparin. 5. Cozaar. 6. Insulin. 7. Lopressor. 8. Levophed. 9. Antibiotics. ASSESSMENT: 1. CVA. 2. Elevated troponin, secondary to type 2 myocardial infarction. 3. Paroxysmal atrial fibrillation. 4. Respiratory failure. PLAN: I am going to continue the amiodarone at the maintenance infusion. Continue rest of her medications. MMODL / IJN: [id number] /
[2024-03-17 11:57] LABS: Glucose,Whole Blood 212 mg/dL (70-110)
--- NOTE | 2024-03-17 14:02 | P.PN ---
Subjective Progress Note Date: 03/17/24 Principal diagnosis: Acute CVA This is a 73-year-old female patient, a chronic smoker smokes around 1.5 packs of cigarettes on a daily basis, known to have COPD, nevertheless, does not utilize any form of respiratory medications or inhalers on outpatient basis. Denies having any home O2. Most of the information was obtained from the son at the bedside who also happens to be a poor historian. The patient came into the hospital because of slurred speech and she was not following commands and she was altered. The patient had no fever. No headaches. No neck stiffness. CAT scan of the head showed a right parietal lobe acute/subacute infarcts. She was in normal sinus rhythm. At the same time, the patient was found to have elevated troponins of 0.3, 0.4 and 0.4 respectively x 3. The white cell count was at 5.7 with a hemoglobin 15.4 and the patient had a normal creatinine of 0.56 with a BUN of 14. Neurology was involved in her case and the patient was given a CTA of the brain that showed no evidence of any dissection of the cervical and the vertebral arteries and there was no evidence of any significant stenosis in the carotids or in the intracranial arteries. There was however an area of atelectasis in the left upper lobe and this is based on the partial visualization of the lung windows done on the CAT scan of the head and neck. The patient is quite hypoxic and she is currently on 5 L of oxygen by nasal cannula with pulse ox 92%. Based on those findings, pulmonary consultation was requested. Her proBNP level is 6490. She is currently on IV heparin based on elevated troponins. She is also on aspirin. Cardiology is also on the case. Echocardiogram was done and the patient was found to have a normal LV function, severe RV dilatation and evidence of severe pulmonary hypertension. On 03/16/2024, the patient remains quite unresponsive. Remains on BiPAP. Barely responsive to painful stimulation. Mental status is significantly diminished. She remains on a BiPAP pressure of 12/5 with an FiO2 of 40%. Generated tidal volumes noted of 200 cc. The blood gas from today showed a pH of 7.14 with a pCO2 of above 98 and pO2 of 101. Based on that, I do lengthy discussion with the family and recommended intubation mechanical ventilation while the patient's stroke evolves further. The chest x-ray from today shows COPD with diffuse inc reased interstitial infiltrates bilaterally. This could be fluid versus interstitial pneumonia and the patient remains on IV Zosyn. The patient's cardiac rhythm is sinus. No further episodes of atrial fibrillation has been noted and the patient remains on IV heparin. IV fluids are in the form of normal saline at rate of 75 cc an hour. She remains on bronchodilators. She remains on systemic steroids. A follow-up CAT scan of the brain was done yesterday and it showed evidence of subacute multiple infarcts and there was no evidence of any bleeding. Based on all this, the patient was intubated and currently is on assist-control mode of mechanical ventilation at rate of 24, tidal volume of 400 with a PEEP of 5 and FiO2 of 100%. Postintubation blood gas showed a pH of 7.29 with a pCO2 of 76 and pO2 of 374. FiO2 will be gradually weaned. Triple-lumen catheter and a arterial line was also inserted. Enteral feeding will be also initiated. She remains on aspirin. She remains on sta tins. Patient was seen today on, patient was intubated yesterday, and she is now on mechanical ventilation. Patient developed worsening hypoxic and hypercapnic respiratory failure required intubation mechanical ventilation. Patient is now on assist-control rate of 20 tidal volume 400 FiO2 40% and PEEP of 5 ABG showed a pO2 of 93 pCO2 45 pH of 7.47 hence no changes were made in her present ventilator settings. Patient is on vital AF at 10 cc/h she is also on propofol at 50 mcg/kg/min, amiodarone 0.5 mg/min heparin drip IV fluid 0.9 normal saline at 75 cc/h Solu-Medrol 60 every 6 Zosyn empirically for possible aspiration. Patient had a presentation of 2 weeks history of headache and stuttering. She was found to have right parietal CVA. Patient was intubated on 03/16 remains intubated and sedated. Chest x-ray showed COPD with ongoing interstitial opacities throughout both lungs. And opacity noted in the left retrocardiac area suspicious for pneumonia with some opacity in the right base that seems to be improving WBC count today is 7.7 hemoglobin 13.5 basic metabolic profile is normal, BUN is 40 creatinine 0.83 Objective - Vital Signs Vital signs: Vital Signs Temp 98.3 F 03/17/24 12:00 Pulse 64 03/17/24 13:02 Resp 20 03/17/24 12:00 BP 134/70 03/17/24 12:00 Pulse Ox 99 03/17/24 12:00 FiO2 40 03/17/24 12:47 Intake & Output 03/16/24 03/17/24 03/17/24 18:59 06:59 18:59 Intake Total 2008.653 4612.212 687.482 Output Total 1340 1295 600 Balance -88.007 52.212 87.482 Weight 67.2 kg 67.2 kg Intake: IV 1000 1100 375 Piperacillin-Tazobactam 3 100 200 .375 gm In Sodium Chloride 0.9% 100 ml @ 25 mls/hr IVPB Q8H [facility] Rx#: [id number] Sodium Chloride 0.9% 1, 900 900 375 000 ml @ 75 mls/hr IV . [id number] [facility] Rx#:[id number] Intake, IV Titration 211.993 237.212 312.482 Amount Heparin Sod,Pork in 0.45% 111.993 216.722 NaCl 25,000 unit In 0.45 % NaCl 1 250ml.bag @ 18 UNITS/KG/HR 11.538 mls/hr IV .[id number] [facility] Rx#: [id number] Norepinephrine 4 mg In 93.239 Sodium Chloride 0.9% 250 ml @ 0.03 MCG/KG/MIN 7. 601 mls/hr IV .Q24H [facility] Rx#:[id number] propofoL 1,000 mg In 100.000 143.973 95.76 Empty Bag 1 bag @ 15 MCG/ KG/MIN 5.985 mls/hr IV . [id number] [facility] Rx#:[id number] Tube Feeding 40 10 Output: Urine 1340 1295 600 Other: Voiding Method Indwelling Catheter Indwelling Catheter ABP, PAP, CO, CI - Last Documented Arterial Blood Pressure 152/63 - Exam physical exam revealed a 73-year-old female intubated mechanically ventilated sedated in no distress Head exam is unremarkable. No scleral icterus or corneal arcus noted. Neck is without jugular venous distension, thyromegaly, or carotid bruits. Lungs symmetrical chest expansion slightly diminished breath sound at the bases no rhonchi no wheezes Cardiac exam distant S1-S2, no S3 gallop, no murmur. Abdominal exam reveals soft nontender no megaly no rebound no guarding Extremities no clubbing edema or cyanosis. Examination of the skin showed no specific rashes Neurologically, patient could not be assessed, sedated, intubated mechanically ventilated Psychiatric: Could not assess. Patient is sedated on propofol - Labs CBC & Chem 7: 03/17/24 04:40 03/17/24 04:40 Labs: Abnormal Lab Results - Last 24 Hours (Table) 03/16/24 03/16/24 03/17/24 Range/Units 13:10 18:23 00:05 Hct (34.0-46.0) % MCHC (31.0-37.0) g/dL Lymphocytes # (1.0-4.8) k/uL APTT 43.6 H (22.0-30.0) sec ABG pH (7.35-7.45) ABG HCO3 (21-25) mmol/L ABG Total CO2 (19-24) mmol/L ABG O2 Saturation (94-97) % Carbon Dioxide (22-30) mmol/L BUN (7-17) mg/dL Glucose (74-99) mg/dL POC Glucose (mg/dL) 188 H 183 H (70-110) mg/dL Calcium (8.4-10.2) mg/dL Total Protein (6.3-8.2) g/dL Albumin (3.5-5.0) g/dL 03/17/24 03/17/24 03/17/24 Range/Units 04:40 04:40 04:40 Hct 46.1 H (34.0-46.0) % MCHC 29.3 L (31.0-37.0) g/dL Lymphocytes # 0.2 L (1.0-4.8) k/uL APTT 57.8 H (22.0-30.0) sec ABG pH (7.35-7.45) ABG HCO3 (21-25) mmol/L ABG Total CO2 (19-24) mmol/L ABG O2 Saturation (94-97) % Carbon Dioxide 33 H (22-30) mmol/L BUN 40 H (7-17) mg/dL Glucose 202 H (74-99) mg/dL POC Glucose (mg/dL) (70-110) mg/dL Calcium 8.0 L (8.4-10.2) mg/dL Total Protein 5.3 L (6.3-8.2) g/dL Albumin 2.8 L (3.5-5.0) g/dL 03/17/24 03/17/24 03/17/24 Range/Units 05:37 06:16 11:56 Hct (34.0-46.0) % MCHC (31.0-37.0) g/dL Lymphocytes # (1.0-4.8) k/uL APTT (22.0-30.0) sec ABG pH 7.47 H (7.35-7.45) ABG HCO3 32 H (21-25) mmol/L ABG Total CO2 34 H (19-24) mmol/L ABG O2 Saturation 98.4 H (94-97) % Carbon Dioxide (22-30) mmol/L BUN (7-17) mg/dL Glucose (74-99) mg/dL POC Glucose (mg/dL) 194 H 212 H (70-110) mg/dL Calcium (8.4-10.2) mg/dL Total Protein (6.3-8.2) g/dL Albumin (3.5-5.0) g/dL Microbiology - Last 24 Hours (Table) 03/16/24 10:22 Gram Stain - Preliminary Sputum Sputum Culture - Preliminary Assessment and Plan Assessment: Impression n: Acute CVA, involving right parietal lobe. Acute on chronic hypoxic and hypercapnic respiratory failure requiring intubation and mechanical ventilation, patient has underlying COPD History of COPD Paroxysmal atrial fibrillation Possible chronic hypoxic and hypercapnic respiratory failure Tobacco dependence syndrome, Severe pulmonary hypertension related to chronic obstructive lung disease and chronic hypoxia Abnormal troponins no evidence of acute ST segment changes Hypertension Dyslipidemia Recommendation: Continue ventilatory support Continue heparin Continue aspirin Considering the patient multiple subacute infarcts on CT of the brain may have to consider BRIAN at a later stage. Continue to follow neurologic recommendation regarding her CVA Continue bronchodilators and steroids Continue GI DVT prophylaxis Continue Zosyn empirically chest x-ray is suggestive of possible aspiration pneumonia Continue to monitor mental status and daily assessment of mental status including assessment of mental status today off sedation Son was updated on her clinical situation at bedside. Patient is critically ill, not quite ready for extubation. Critical care time is over 30 minutes Will continue to Time with Patient: Greater than 30
--- NOTE | 2024-03-17 14:47 | P.PN ---
Subjective Progress Note Date: 03/17/24 I am seeing the patient for the first time during this patient admission. Please refer to Dr. Diamond notes for further details. It seems the patient presented to the hospital on March 11, 2024 for some speech abnormality and lethargy. CT of the head showed right parietal and left precentral gyrus infarct. Seems the patient has respiratory distress and she is intubated on a ventilator. She is on IV propofol 30mcg/kg/min. Per the nurse when the sedation was held for 1 hour patient breathing was asynchronous but she was following very minimal commands, wiggling her toes. Her sedation was rest arted. Objective - Vital Signs Vital signs: Vital Signs Temp 98.3 F 03/17/24 12:00 Pulse 64 03/17/24 13:02 Resp 20 03/17/24 12:00 BP 134/70 03/17/24 12:00 Pulse Ox 99 03/17/24 12:00 FiO2 40 03/17/24 12:47 Intake & Output 03/16/24 03/17/24 03/17/24 18:59 06:59 18:59 Intake Total 8478.486 6846.212 687.482 Output Total 1340 1295 600 Balance -88.007 52.212 87.482 Weight 67.2 kg 67.2 kg Intake: IV 1000 1100 375 Piperacillin-Tazobactam 3 100 200 .375 gm In Sodium Chloride 0.9% 100 ml @ 25 mls/hr IVPB Q8H [facility] Rx#: [id number] Sodium Chloride 0.9% 1, 900 900 375 000 ml @ 75 mls/hr IV . [id number] [facility] Rx#:[id number] Intake, IV Titration 211.993 237.212 312.482 Amount Heparin Sod,Pork in 0.45% 111.993 216.722 NaCl 25,000 unit In 0.45 % NaCl 1 250ml.bag @ 18 UNITS/KG/HR 11.538 mls/hr IV .[id number] [facility] Rx#: [id number] Norepinephrine 4 mg In 93.239 Sodium Chloride 0.9% 250 ml @ 0.03 MCG/KG/MIN 7. 601 mls/hr IV .Q24H [facility] Rx#:[id number] propofoL 1,000 mg In 100.000 143.973 95.76 Empty Bag 1 bag @ 15 MCG/ KG/MIN 5.985 mls/hr IV . [id number] [facility] Rx#:[id number] Tube Feeding 40 10 Output: Urine 1340 1295 600 Other: Voiding Method Indwelling Catheter Indwelling Catheter ABP, PAP, CO, CI - Last Documented Arterial Blood Pressure 152/63 - Exam General: Lying in bed and does not appear in acute distress. Lung: Intubated on a ventilator. Neuro: Very limited. Patient is on IV Propofol 30mcg/kg/min. I had to manually open eyes and primary gaze is midline, pinpoint. No appreciable facial weakness from limitation. Motor: Limited. No spontaneous movement. - Labs CBC & Chem 7: 03/17/24 04:40 03/17/24 04:40 Labs: Abnormal Lab Results - Last 24 Hours (Table) 03/16/24 03/17/24 03/17/24 Range/Units 18:23 00:05 04:40 Hct 46.1 H (34.0-46.0) % MCHC 29.3 L (31.0-37.0) g/dL Lymphocytes # 0.2 L (1.0-4.8) k/uL APTT (22.0-30.0) sec ABG pH (7.35-7.45) ABG HCO3 (21-25) mmol/L ABG Total CO2 (19-24) mmol/L ABG O2 Saturation (94-97) % Carbon Dioxide (22-30) mmol/L BUN (7-17) mg/dL Glucose (74-99) mg/dL POC Glucose (mg/dL) 188 H 183 H (70-110) mg/dL Calcium (8.4-10.2) mg/dL Total Protein (6.3-8.2) g/dL Albumin (3.5-5.0) g/dL 03/17/24 03/17/24 03/17/24 Range/Units 04:40 04:40 05:37 Hct (34.0-46.0) % MCHC (31.0-37.0) g/dL Lymphocytes # (1.0-4.8) k/uL APTT 57.8 H (22.0-30.0) sec ABG pH 7.47 H (7.35-7.45) ABG HCO3 32 H (21-25) mmol/L ABG Total CO2 34 H (19-24) mmol/L ABG O2 Saturation 98.4 H (94-97) % Carbon Dioxide 33 H (22-30) mmol/L BUN 40 H (7-17) mg/dL Glucose 202 H (74-99) mg/dL POC Glucose (mg/dL) (70-110) mg/dL Calcium 8.0 L (8.4-10.2) mg/dL Total Protein 5.3 L (6.3-8.2) g/dL Albumin 2.8 L (3.5-5.0) g/dL 03/17/24 03/17/24 Range/Units 06:16 11:56 Hct (34.0-46.0) % MCHC (31.0-37.0) g/dL Lymphocytes # (1.0-4.8) k/uL APTT (22.0-30.0) sec ABG pH (7.35-7.45) ABG HCO3 (21-25) mmol/L ABG Total CO2 (19-24) mmol/L ABG O2 Saturation (94-97) % Carbon Dioxide (22-30) mmol/L BUN (7-17) mg/dL Glucose (74-99) mg/dL POC Glucose (mg/dL) 194 H 212 H (70-110) mg/dL Calcium (8.4-10.2) mg/dL Total Protein (6.3-8.2) g/dL Albumin (3.5-5.0) g/dL Microbiology - Last 24 Hours (Table) 03/16/24 10:22 Gram Stain - Preliminary Sputum Sputum Culture - Preliminary Assessment and Plan Assessment: Ms. Ponce is a 73-year-old female with history of hypertension, COPD, and bilateral cataracts who was brought to the hospital on March 11 with some speech abnormalities and lethargy. She was noted on CT scan to have a right parietal as well as left precentral gyrus infarct. I personally reviewed it and felt over the left fronto/parietal region) Acute ischemic stroke (right parietal as well as left precentral gyrus infarct on CT per my colleague and per reading radiologist bilateral hemsiphere but I felt over the left fronto/parietal/occipital region and precentral region) and a ppears embolic (cardioembolic, especially with Atrial fibrillation) Respiratory distress and is intubated on ventilator Paroxysmal atrial fibrillation Severe pulmonary hypertension Hypertension Hyperlipidemia History of COPD Tobacco dependence Plan: I agree once the patient is extubated recommend MRI of the brain for further evaluation of the stroke. It seems the patient will require long-term anticoagulant for the management of embolic stroke in light of her atrial fibrillation and it seems that she is on heparin drip. Seems that she is exhibiting some degree of hematuria and will defer the management to the ICU. With my colleague heparin drip needs to be discontinued for short period of time she is receiving rectal aspirin which will cover her minimally for stroke protection. He is on aspirin 325 daily. Patient is on Lipitor 40 mg daily. Continue neurochecks Cardiac monitoring PT OT and PERINATOLOGY PHYSICIAN are consulted. Recommend sedation holiday for better evaluation of neurological examination. For DVT prophylaxis the patient is on heparin drip Discussed with [id number] as well as the patient ICU nurse Will continue to follow-up Time with Patient: Less than 30
[2024-03-17 18:06] LABS: Glucose,Whole Blood 203 mg/dL (70-110)
[2024-03-17] MEDS: ASPIRIN 325 MG TAB OG-TUBE SCH (18:10)
--- NOTE | 2024-03-17 18:21 | P.PN ---
Subjective Progress Note Date: 03/17/24 Mirtha Ponce is a 73-year-old female patient who initially presented to her PCP with complaints of slurring of speech patient was directed to come to ER for further evaluation. At this time patient is in bed sleeping not following commands or answering questions. Family at bedside history obtained through them and medical records. According to family patient was found to be having slurred speech patient did not want to come to ER at that time so was taken to PCP. Per family patient is a heavy smoker but denies any alcohol or drug use. Denies any recent illness. Additional medical history includes COPD, hypertension. Head CT completed showing right parietal lobe acute/subacute CVA. EKG completed showing sinus rhythm. Chest x-ray completed showing cardiomegaly with pulmonary vascular congestion correlate with serum BNP COPD changes. Lab work revealing troponin 0.379, 0.429 and 0.436, white blood cell 5.7, hemoglobin 15.4 creatinine 0.56 bun 14. At this time neurology services have been consulted MRI of the brain has been ordered CTA of the carotids ordered. Will order 2D echo and consult cardiology services. Due to patient's increasing altered mental status changes and concerns for respiratory status we will consult pulmonary services. Patient's BNP also elevated at 6490 will give 1 dose of IV Lasix. Current vital signs temp 97.9, heart rate 96, respiratory rate 18, blood pressure 100/59 with a pulse ox of 95% on nonrebreather. On 03/13/2024 patient was seen and examined on the medical floor she is alert and oriented x 3 in no apparent distress, she has a low-grade fever of 99.4 pulse 108 respiration 22 blood pressure 123/61 pulse ox 91% on 6 L nasal cannula, she has cough, with minimal sputum production she denies any chest pain or shortness of breath no nausea or vomiting no abdominal pain no diarrhea and no urinary symptoms. At this time will keep patient n.p.o. for possible aspiration, will start IV Zosyn and repeat chest x-ray, infectious disease con sultation was added, will continue with IV heparin due to elevated troponin levels, awaiting cardiology input. Neurology consult reviewed. On 03/14/2024 patient remains lethargic in the intensive care unit. Patient was placed on BiPAP. Patient also started on IV Zosyn for concerns of aspiration pneumonia patient not following commands at this time recommendations for possible Dobbhoff placement in order to administer oral medications. Neurology services are following MRI has been ordered but cannot be performed while patient is on BiPAP and heparin. Critical care services following infectious disease, cardiology and neurology services following. Current vital signs temp 98.1, heart rate 96, respiratory rate 27, blood pressure 119/69 with a pulse ox of 96% on BiPAP with an FiO2 of 45%. Family at bedside all questions answered On 03/15/2024 patient was seen and examined in the intensive care unit, she is not responsive at this time she is maintained on BiPAP, vital examination r eveals a temperature of 97.9 pulse 89 respiration 24 blood pressure 110/62 pulse ox 99% on FiO2 45% White blood count is 8.7 hemoglobin 13.8 platelet count 249 arterial blood gas revealed a pH of 7.24 pCO2 95% PaO2 96%, BUN 43 creatinine 0.69. Patient is followed by neurology, infectious disease, cardiology and pulmonary critical care, she remains on IV heparin. CT scan of the brain, was repeated yesterday and reveals multiple subacute infarcts no acute bleed or mass effect, chest x-r ay done this morning reveals diffuse interstitial infiltrates. Prognosis is guarded. On 03/16/2024 patient remains in the intensive care unit ABGs continued to decline despite BiPAP. Plans for intubation today per critical care.. Family at bedside. Plan discussed with family and nursing staff. Patient remains on IV Zosyn and IV Cardizem. Prognosis remains guarded. Neurology, infectious disease, cardiology and critical care services are all following. On 03/17/2024 patient was seen and examined in the intensive care unit, she is intubated sedated maintained on mechanical ventilation, assist control rate of 20 FiO2 40% with a PEEP of 5, she is maintained on IV antibiotic Zosyn and IV Solu-Medrol 60 mg every 6 hours. White blood count is 7.7 hemoglobin 13.5 platelet count 169 BUN 40 creatinine 0.83, patient is still maintained on IV heparin. Will continue to follow closely Objective - Vital Signs Vital signs: Vital Signs Temp 98.6 F 03/17/24 04:00 Pulse 64 03/17/24 07:00 Resp 20 03/17/24 07:00 BP 131/74 03/17/24 07:00 Pulse Ox 99 03/17/24 07:00 FiO2 40 03/17/24 04:00 Intake & Output 03/16/24 03/17/24 03/17/24 18:59 06:59 18:59 Intake Total 0147.642 2521.212 170.76 Output Total 1340 1295 100 Balance -88.007 52.212 70.76 Weight 67.2 kg Intake: IV 1000 1100 75 Piperacillin-Tazobactam 3 100 200 .375 gm In Sodium Chloride 0.9% 100 ml @ 25 mls/hr IVPB Q8H [facility] Rx#: [id number] Sodium Chloride 0.9% 1, 900 900 75 000 ml @ 75 mls/hr IV . [id number] [facility] Rx#:[id number] Intake, IV Titration 211.993 237.212 95.76 Amount Heparin Sod,Pork in 0.45% 111.993 NaCl 25,000 unit In 0.45 % NaCl 1 250ml.bag @ 18 UNITS/KG/HR 11.538 mls/hr IV .[id number] [facility] Rx#: [id number] Norepinephrine 4 mg In 93.239 Sodium Chloride 0.9% 250 ml @ 0.03 MCG/KG/MIN 7. 601 mls/hr IV .Q24H [facility] Rx#:[id number] propofoL 1,000 mg In 100.000 143.973 95.76 Empty Bag 1 bag @ 15 MCG/ KG/MIN 5.985 mls/hr IV . [id number] [facility] Rx#:[id number] Tube Feeding 40 10 Output: Urine 1340 1295 100 Other: Voiding Method Indwelling Catheter Indwelling Catheter ABP, PAP, CO, CI - Last Documented Arterial Blood Pressure 147/63 - Exam Head normocephalic Neck supple Lungs clear to auscultation bilaterally no wheezing or crackles Heart regular rate and rhythm S1-S2, no rub or gallop Abdomen is soft nontender nondistended positive bowel sounds no hepatosplenomegaly Extremities no edema Neuro patient is unresponsive - Labs CBC & Chem 7: 03/17/24 04:40 03/17/24 04:40 Labs: Abnormal Lab Results - Last 24 Hours (Table) 03/16/24 03/16/24 03/16/24 Range/Units 05:39 10:49 13:05 Hct (34.0-46.0) % MCHC (31.0-37.0) g/dL Lymphocytes # (1.0-4.8) k/uL Lymphocytes # (Manual) 0.32 L (1.0-4.8) k/uL APTT (22.0-30.0) sec ABG pH 7.29 L (7.35-7.45) ABG pCO2 76 H* (35-45) mmHg ABG pO2 374 H (83-108) mmHg ABG HCO3 37 H (21-25) mmol/L ABG Total CO2 39 H (19-24) mmol/L ABG O2 Saturation 100.0 H (94-97) % Carbon Dioxide (22-30) mmol/L BUN (7-17) mg/dL Glucose (74-99) mg/dL POC Glucose (mg/dL) 169 H (70-110) mg/dL Calcium (8.4-10.2) mg/dL Total Protein (6.3-8.2) g/dL Albumin (3.5-5.0) g/dL 03/16/24 03/16/24 03/17/24 Range/Units 13:10 18:23 00:05 Hct (34.0-46.0) % MCHC (31.0-37.0) g/dL Lymphocytes # (1.0-4.8) k/uL Lymphocytes # (Manual) (1.0-4.8) k/uL APTT 43.6 H (22.0-30.0) sec ABG pH (7.35-7.45) ABG pCO2 (35-45) mmHg ABG pO2 (83-108) mmHg ABG HCO3 (21-25) mmol/L ABG Total CO2 (19-24) mmol/L ABG O2 Saturation (94-97) % Carbon Dioxide (22-30) mmol/L BUN (7-17) mg/dL Glucose (74-99) mg/dL POC Glucose (mg/dL) 188 H 183 H (70-110) mg/dL Calcium (8.4-10.2) mg/dL Total Protein (6.3-8.2) g/dL Albumin (3.5-5.0) g/dL 03/17/24 03/17/24 03/17/24 Range/Units 04:40 04:40 04:40 Hct 46.1 H (34.0-46.0) % MCHC 29.3 L (31.0-37.0) g/dL Lymphocytes # 0.2 L (1.0-4.8) k/uL Lymphocytes # (Manual) (1.0-4.8) k/uL APTT 57.8 H (22.0-30.0) sec ABG pH (7.35-7.45) ABG pCO2 (35-45) mmHg ABG pO2 (83-108) mmHg ABG HCO3 (21-25) mmol/L ABG Total CO2 (19-24) mmol/L ABG O2 Saturation (94-97) % Carbon Dioxide 33 H (22-30) mmol/L BUN 40 H (7-17) mg/dL Glucose 202 H (74-99) mg/dL POC Glucose (mg/dL) (70-110) mg/dL Calcium 8.0 L (8.4-10.2) mg/dL Total Protein 5.3 L (6.3-8.2) g/dL Albumin 2.8 L (3.5-5.0) g/dL 03/17/24 03/17/24 Range/Units 05:37 06:16 Hct (34.0-46.0) % MCHC (31.0-37.0) g/dL Lymphocytes # (1.0-4.8) k/uL Lymphocytes # (Manual) (1.0-4.8) k/uL APTT (22.0-30.0) sec ABG pH 7.47 H (7.35-7.45) ABG pCO2 (35-45) mmHg ABG pO2 (83-108) mmHg ABG HCO3 32 H (21-25) mmol/L ABG Total CO2 34 H (19-24) mmol/L ABG O2 Saturation 98.4 H (94-97) % Carbon Dioxide (22-30) mmol/L BUN (7-17) mg/dL Glucose (74-99) mg/dL POC Glucose (mg/dL) 194 H (70-110) mg/dL Calcium (8.4-10.2) mg/dL Total Protein (6.3-8.2) g/dL Albumin (3.5-5.0) g/dL Microbiology - Last 24 Hours (Table) 03/16/24 10:22 Gram Stain - Preliminary Sputum Assessment and Plan Assessment: 1. Slurred speech and altered mental status changes likely secondary from CVA 2. Acute CHF exacerbation 3. Elevated troponins 4. Ongoing nicotine dependence greater than 1 pack/day 5. History of COPD 6. History of essential hypertension 7. Concerns of aspiration pneumonia patient started on IV Zosyn infectious disease service is consulted Neurology, cardiology and pulmonary services consulted 2D echo and MRI of the brain ordered Patient started on heparin drip Patient remains on IV Zosyn Patient currently on BiPAP Remains in the intensive care unit Repeat labs ordered PT and OT services consulted
[2024-03-18 00:45] LABS: Glucose,Whole Blood 209 mg/dL (70-110)
[2024-03-18 05:19] LABS: ABG Base Excess 5.3 mmol/L; ABG HCO3 30 mmol/L (21-25); ABG Oxygen Saturation 99.5 % (94-97); ABG PCO2 44 mmHg (35-45); ABG PH 7.44 (7.35-7.45); ABG PO2 134 mmHg (83-108); ABG TCO2 32 mmol/L (19-24); Allen Test Performed? Yes
[2024-03-18 05:21] LABS: Glucose,Whole Blood 188 mg/dL (70-110)
[2024-03-18 05:34] LABS: Basophils % (A) 0 %; Eosinophils % (A) 0 %; HCT 45.3 % (34.0-46.0); HGB 13.9 gm/dL (11.4-16.0); Hypochromasia Marked; Lymphocytes # (A) 0.3 k/uL (1.0-4.8); Lymphocytes % (A) 4 %; MCH 26.3 pg (25.0-35.0); MCHC 30.6 g/dL (31.0-37.0); MCV 85.9 fL (80.0-100.0); Mean Platelet Volume 8.9; Monocytes # (A) 0.5 k/uL (0-1.0); Monocytes % (A) 6 %; Neutrophils # (A) 7.8 k/uL (1.3-7.7); Neutrophils % (A) 89 %; Platelet Count 144 k/uL (150-450); RBC 5.28 m/uL (3.80-5.40); RDW 15.4 % (11.5-15.5); WBC 8.7 k/uL (3.8-10.6)
[2024-03-18 05:50] LABS: African American GFR (CKD) >90 (>60 ml/min/1.73 sqM); Anion Gap -1 mmol/L; Blood Urea Nitrogen 33 mg/dL (7-17); Carbon Dioxide 31 mmol/L (22-30); Chloride 104 mmol/L (98-107); Glucose 204 mg/dL (74-99); Non-African American GFR(CKD) 90 (>60 ml/min/1.73 sqM); Sodium 134 mmol/L (137-145)
--- NOTE | 2024-03-18 07:59 | XR ---
EXAMINATION TYPE: XR chest 1V portable DATE OF EXAM: 03/18/2024 5:19 AM COMPARISON: 03/17/2024 CLINICAL INDICATION: Female, 73 years old with history of Tube placement, , FINDINGS: ETT tube is satisfactory. NG tube side hole now at the GE junction level. Consider slight further adv ancement. Left IJ CVC tip cavoatrial junction. Patient is rotated towards the left ultrasound and nor mal cardiac and mediastinal contours. Heart appears borderline in size. Hyperinflation. Diffuse inter stitial opacities persist. Patchy retrocardiac opacity remains. IMPRESSION: 1. COPD with ongoing interstitial infiltrates/interstitial edema as well as patchy retrocardiac opaci ty. 2. NG tube sidehole is now noted to be at the GE junction level. Consider slight further advancement into the stomach. [facility], , 03/18/2024 7:57 AM
--- NOTE | 2024-03-18 08:14 | P.PN ---
Subjective Progress Note Date: 03/17/24 Principal diagnosis: Reason for follow-up is pneumonia Patient is a 73-year-old female with a past medical history significant for COPD hypertension hyperlipidemia patient was brought into the hospital for evaluation of mental status changes and was being worked up for stroke did have worsening of respiratory status concerning for aspiration prompted this consultation. Patient did have worsening of her respiratory status got intubated on 03/16/2024 On today's evaluation 03/17/2024, patient has been afebrile, patient is on the ventilator FiO2 is currently stable at 40% no significant purulent secretion through the ET patient is hemodynamically stable not requiring a pressor support and no diarrhea has been reported. Patient white count is 7.7 creatinine 0.83 Objective - Vital Signs Vital signs: Vital Signs Temp 98.3 F 03/17/24 12:00 Pulse 64 03/17/24 13:02 Resp 20 03/17/24 12:00 BP 134/70 03/17/24 12:00 Pulse Ox 99 03/17/24 12:00 FiO2 40 03/17/24 12:47 Intake & Output 03/16/24 03/17/24 03/17/24 18:59 06:59 18:59 Intake Total 7226.843 5088.212 687.482 Output Total 1340 1295 600 Balance -88.007 52.212 87.482 Weight 67.2 kg 67.2 kg Intake: IV 1000 1100 375 Piperacillin-Tazobactam 3 100 200 .375 gm In Sodium Chloride 0.9% 100 ml @ 25 mls/hr IVPB Q8H [facility] Rx#: [id number] Sodium Chloride 0.9% 1, 900 900 375 000 ml @ 75 mls/hr IV . [id number] [facility] Rx#:[id number] Intake, IV Titration 211.993 237.212 312.482 Amount Heparin Sod,Pork in 0.45% 111.993 216.722 NaCl 25,000 unit In 0.45 % NaCl 1 250ml.bag @ 18 UNITS/KG/HR 11.538 mls/hr IV .[id number] [facility] Rx#: [id number] Norepinephrine 4 mg In 93.239 Sodium Chloride 0.9% 250 ml @ 0.03 MCG/KG/MIN 7. 601 mls/hr IV .Q24H [facility] Rx#:[id number] propofoL 1,000 mg In 100.000 143.973 95.76 Empty Bag 1 bag @ 15 MCG/ KG/MIN 5.985 mls/hr IV . [id number] [facility] Rx#:[id number] Tube Feeding 40 10 Output: Urine 1340 1295 600 Other: Voiding Method Indwelling Catheter Indwelling Catheter ABP, PAP, CO, CI - Last Documented Arterial Blood Pressure 152/63 - Exam GENERAL DESCRIPTION: An elderly female intubated on the vent RESPIRATORY SYSTEM: Unlabored breathing , decreased breath sounds at bases HEART: S1 S2 regular rate and rhythm , ABDOMEN: Soft , no tenderness EXTREMITIES: No edema feet - Labs CBC & Chem 7: 03/18/24 05:15 03/18/24 05:15 Labs: Abnormal Lab Results - Last 24 Hours (Table) 03/16/24 03/17/24 03/17/24 Range/Units 18:23 00:05 04:40 Hct 46.1 H (34.0-46.0) % MCHC 29.3 L (31.0-37.0) g/dL Lymphocytes # 0.2 L (1.0-4.8) k/uL APTT (22.0-30.0) sec ABG pH (7.35-7.45) ABG HCO3 (21-25) mmol/L ABG Total CO2 (19-24) mmol/L ABG O2 Saturation (94-97) % Carbon Dioxide (22-30) mmol/L BUN (7-17) mg/dL Glucose (74-99) mg/dL POC Glucose (mg/dL) 188 H 183 H (70-110) mg/dL Calcium (8.4-10.2) mg/dL Total Protein (6.3-8.2) g/dL Albumin (3.5-5.0) g/dL 03/17/24 03/17/24 03/17/24 Range/Units 04:40 04:40 05:37 Hct (34.0-46.0) % MCHC (31.0-37.0) g/dL Lymphocytes # (1.0-4.8) k/uL APTT 57.8 H (22.0-30.0) sec ABG pH 7.47 H (7.35-7.45) ABG HCO3 32 H (21-25) mmol/L ABG Total CO2 34 H (19-24) mmol/L ABG O2 Saturation 98.4 H (94-97) % Carbon Dioxide 33 H (22-30) mmol/L BUN 40 H (7-17) mg/dL Glucose 202 H (74-99) mg/dL POC Glucose (mg/dL) (70-110) mg/dL Calcium 8.0 L (8.4-10.2) mg/dL Total Protein 5.3 L (6.3-8.2) g/dL Albumin 2.8 L (3.5-5.0) g/dL 03/17/24 03/17/24 Range/Units 06:16 11:56 Hct (34.0-46.0) % MCHC (31.0-37.0) g/dL Lymphocytes # (1.0-4.8) k/uL APTT (22.0-30.0) sec ABG pH (7.35-7.45) ABG HCO3 (21-25) mmol/L ABG Total CO2 (19-24) mmol/L ABG O2 Saturation (94-97) % Carbon Dioxide (22-30) mmol/L BUN (7-17) mg/dL Glucose (74-99) mg/dL POC Glucose (mg/dL) 194 H 212 H (70-110) mg/dL Calcium (8.4-10.2) mg/dL Total Protein (6.3-8.2) g/dL Albumin (3.5-5.0) g/dL Microbiology - Last 24 Hours (Table) 03/16/24 10:22 Gram Stain - Preliminary Sputum Sputum Culture - Preliminary Assessment and Plan (1) Aspiration pneumonia Current Visit: Yes Status: Acute Code(s): J69.0 - PNEUMONITIS DUE TO INHALATION OF FOOD AND VOMIT SNOMED Code(s): 967891163 Plan: 1patient with worsening respiratory status and this patient initially brought into the hospital with slurred speech and being worked up for a CVA with worsening of respiratory status requiring BiPAP and a question of possible aspiration. 2patient did have CT angiogram of the chest shows consolidation concerning for pneumonia possible aspiration repeat CT of the brain concerning for subacute infarct with some progression neurology is following the patient 3patient did have worsening of respiratory status requiring intubation sputum culture has been obtained which are currently pending 4patient is afebrile white count normal will be treated with Zosyn while waiting for the culture to finalize Family at the bedside questions answered Dictation was produced using [employer] dictation software. please excuse any gr ammatical, word or spelling errors. Time with Patient: Less than 30
--- NOTE | 2024-03-18 08:47 | P.PN ---
Subjective Progress Note Date: 03/18/24 Mirtha Ponce is a 73-year-old female patient who initially presented to her PCP with complaints of slurring of speech patient was directed to come to ER for further evaluation. At this time patient is in bed sleeping not following commands or answering questions. Family at bedside history obtained through them and medical records. According to family patient was found to be having slurred speech patient did not want to come to ER at that time so was taken to PCP. Per family patient is a heavy smoker but denies any alcohol or drug use. Denies any recent illness. Additional medical history includes COPD, hypertension. Head CT completed showing right parietal lobe acute/subacute CVA. EKG completed showing sinus rhythm. Chest x-ray completed showing cardiomegaly with pulmonary vascular congestion correlate with serum BNP COPD changes. Lab work revealing troponin 0.379, 0.429 and 0.436, white blood cell 5.7, hemoglobin 15.4 creatinine 0.56 bun 14. At this time neurology services have been consulted MRI of the brain has been ordered CTA of the carotids ordered. Will order 2D echo and consult cardiology services. Due to patient's increasing altered mental status changes and concerns for respiratory status we will consult pulmonary services. Patient's BNP also elevated at 6490 will give 1 dose of IV Lasix. Current vital signs temp 97.9, heart rate 96, respiratory rate 18, blood pressure 100/59 with a pulse ox of 95% on nonrebreather. On 03/13/2024 patient was seen and examined on the medical floor she is alert and oriented x 3 in no apparent distress, she has a low-grade fever of 99.4 pulse 108 respiration 22 blood pressure 123/61 pulse ox 91% on 6 L nasal cannula, she has cough, with minimal sputum production she denies any chest pain or shortness of breath no nausea or vomiting no abdominal pain no diarrhea and no urinary symptoms. At this time will keep patient n.p.o. for possible aspiration, will start IV Zosyn and repeat chest x-ray, infectious disease con sultation was added, will continue with IV heparin due to elevated troponin levels, awaiting cardiology input. Neurology consult reviewed. On 03/14/2024 patient remains lethargic in the intensive care unit. Patient was placed on BiPAP. Patient also started on IV Zosyn for concerns of aspiration pneumonia patient not following commands at this time recommendations for possible Dobbhoff placement in order to administer oral medications. Neurology services are following MRI has been ordered but cannot be performed while patient is on BiPAP and heparin. Critical care services following infectious disease, cardiology and neurology services following. Current vital signs temp 98.1, heart rate 96, respiratory rate 27, blood pressure 119/69 with a pulse ox of 96% on BiPAP with an FiO2 of 45%. Family at bedside all questions answered On 03/15/2024 patient was seen and examined in the intensive care unit, she is not responsive at this time she is maintained on BiPAP, vital examination r eveals a temperature of 97.9 pulse 89 respiration 24 blood pressure 110/62 pulse ox 99% on FiO2 45% White blood count is 8.7 hemoglobin 13.8 platelet count 249 arterial blood gas revealed a pH of 7.24 pCO2 95% PaO2 96%, BUN 43 creatinine 0.69. Patient is followed by neurology, infectious disease, cardiology and pulmonary critical care, she remains on IV heparin. CT scan of the brain, was repeated yesterday and reveals multiple subacute infarcts no acute bleed or mass effect, chest x-r ay done this morning reveals diffuse interstitial infiltrates. Prognosis is guarded. On 03/16/2024 patient remains in the intensive care unit ABGs continued to decline despite BiPAP. Plans for intubation today per critical care.. Family at bedside. Plan discussed with family and nursing staff. Patient remains on IV Zosyn and IV Cardizem. Prognosis remains guarded. Neurology, infectious disease, cardiology and critical care services are all following. On 03/17/2024 patient was seen and examined in the intensive care unit, she is intubated sedated maintained on mechanical ventilation, assist control rate of 20 FiO2 40% with a PEEP of 5, she is maintained on IV antibiotic Zosyn and IV Solu-Medrol 60 mg every 6 hours. White blood count is 7.7 hemoglobin 13.5 platelet count 169 BUN 40 creatinine 0.83, patient is still maintained on IV heparin. Will continue to follow closely On 03/18/2024 patient remains in the intensive care unit intubated and sedated on mechanical ventilation with an FiO2 of 40%. Patient remains on IV antibiotics Zosyn. Patient remains on IV heparin drip. WBC 8.7, hemoglobin 13.9 creatinine 0.61 bun 33 multiple consults following Objective - Vital Signs Vital signs: Vital Signs Temp 98.6 F 03/18/24 04:00 Pulse 67 03/18/24 08:42 Resp 20 03/18/24 07:00 BP 127/73 03/18/24 02:00 Pulse Ox 99 03/18/24 07:00 FiO2 40 03/18/24 04:00 Intake & Output 03/17/24 03/18/24 03/18/24 18:59 06:59 18:59 Intake Total 0147.717 4942.455 75 Output Total 900 835 75 Balance 726.671 274.455 0 Weight 67.2 kg 68.2 kg Intake: IV 900 1025 75 Piperacillin-Tazobactam 3 200 .375 gm In Sodium Chloride 0.9% 100 ml @ 25 mls/hr IVPB Q8H [facility] Rx#: [id number] Sodium Chloride 0.9% 1, 900 825 75 000 ml @ 75 mls/hr IV . [id number] [facility] Rx#:[id number] Intake, IV Titration 646.671 84.455 Amount Amiodarone 450 mg In 250 Dextrose 5% in Water 250 ml @ 0.5 MG/MIN 16.667 mls/hr IV .Q15H [facility] Rx#: [id number] Heparin Sod,Pork in 0.45% 216.722 NaCl 25,000 unit In 0.45 % NaCl 1 250ml.bag @ 18 UNITS/KG/HR 11.538 mls/hr IV .[id number] [facility] Rx#: [id number] propofoL 1,000 mg In 179.949 84.455 Empty Bag 1 bag @ 15 MCG/ KG/MIN 5.985 mls/hr IV . [id number] [facility] Rx#:[id number] Tube Feeding 80 Output: Urine 900 835 75 Other: Voiding Method Indwelling Catheter Indwelling Catheter ABP, PAP, CO, CI - Last Documented Arterial Blood Pressure 151/69 - Exam Head normocephalic Neck supple Lungs clear to auscultation bilaterally no wheezing or crackles Heart regular rate and rhythm S1-S2, no rub or gallop Abdomen is soft nontender nondistended positive bowel sounds no hepatosplenomegaly Extremities no edema Neuro patient is unresponsive - Labs CBC & Chem 7: 03/18/24 05:15 03/18/24 05:15 Labs: Abnormal Lab Results - Last 24 Hours (Table) 03/17/24 03/17/24 03/18/24 Range/Units 11:56 18:05 00:44 MCHC (31.0-37.0) g/dL Plt Count (150-450) k/uL Neutrophils # (1.3-7.7) k/uL Lymphocytes # (1.0-4.8) k/uL APTT (22.0-30.0) sec ABG pO2 (83-108) mmHg ABG HCO3 (21-25) mmol/L ABG Total CO2 (19-24) mmol/L ABG O2 Saturation (94-97) % Sodium (137-145) mmol/L Carbon Dioxide (22-30) mmol/L BUN (7-17) mg/dL Glucose (74-99) mg/dL POC Glucose (mg/dL) 212 H 203 H 209 H (70-110) mg/dL Calcium (8.4-10.2) mg/dL 03/18/24 03/18/24 03/18/24 Range/Units 05:12 05:15 05:15 MCHC 30.6 L (31.0-37.0) g/dL Plt Count 144 L (150-450) k/uL Neutrophils # 7.8 H (1.3-7.7) k/uL Lymphocytes # 0.3 L (1.0-4.8) k/uL APTT (22.0-30.0) sec ABG pO2 134 H (83-108) mmHg ABG HCO3 30 H (21-25) mmol/L ABG Total CO2 32 H (19-24) mmol/L ABG O2 Saturation 99.5 H (94-97) % Sodium 134 L (137-145) mmol/L Carbon Dioxide 31 H (22-30) mmol/L BUN 33 H (7-17) mg/dL Glucose 204 H (74-99) mg/dL POC Glucose (mg/dL) (70-110) mg/dL Calcium 8.0 L (8.4-10.2) mg/dL 03/18/24 03/18/24 Range/Units 05:15 05:20 MCHC (31.0-37.0) g/dL Plt Count (150-450) k/uL Neutrophils # (1.3-7.7) k/uL Lymphocytes # (1.0-4.8) k/uL APTT 43.5 H (22.0-30.0) sec ABG pO2 (83-108) mmHg ABG HCO3 (21-25) mmol/L ABG Total CO2 (19-24) mmol/L ABG O2 Saturation (94-97) % Sodium (137-145) mmol/L Carbon Dioxide (22-30) mmol/L BUN (7-17) mg/dL Glucose (74-99) mg/dL POC Glucose (mg/dL) 188 H (70-110) mg/dL Calcium (8.4-10.2) mg/dL Microbiology - Last 24 Hours (Table) 03/16/24 10:22 Gram Stain - Final Sputum Sputum Culture - Final Assessment and Plan Assessment: 1. Slurred speech and altered mental status changes likely secondary from CVA 2. Acute CHF exacerbation 3. Elevated troponins 4. Ongoing nicotine dependence greater than 1 pack/day 5. History of COPD 6. History of essential hypertension 7. Concerns of aspiration pneumonia patient started on IV Zosyn infectious disease service is consulted Neurology, cardiology and pulmonary services consulted 2D echo and MRI of the brain ordered Patient started on heparin drip Patient remains on IV Zosyn Patient currently on BiPAP Remains in the intensive care unit Repeat labs ordered PT and OT services consulted
[2024-03-18] MEDS: amLODIPine 5 MG TAB PO SCH (08:49)
[2024-03-18] MEDS: AMIODARONE 200 MG TAB PO SCH (08:49)
[2024-03-18 11:46] LABS: Glucose,Whole Blood 225 mg/dL (70-110)
--- NOTE | 2024-03-18 13:24 | P.PN ---
Subjective Progress Note Date: 03/18/24 Principal diagnosis: Acute CVA This is a 73-year-old female patient, a chronic smoker smokes around 1.5 packs of cigarettes on a daily basis, known to have COPD, nevertheless, does not utilize any form of respiratory medications or inhalers on outpatient basis. Denies having any home O2. Most of the information was obtained from the son at the bedside who also happens to be a poor historian. The patient came into the hospital because of slurred speech and she was not following commands and she was altered. The patient had no fever. No headaches. No neck stiffness. CAT scan of the head showed a right parietal lobe acute/subacute infarcts. She was in normal sinus rhythm. At the same time, the patient was found to have elevated troponins of 0.3, 0.4 and 0.4 respectively x 3. The white cell count was at 5.7 with a hemoglobin 15.4 and the patient had a normal creatinine of 0.56 with a BUN of 14. Neurology was involved in her case and the patient was given a CTA of the brain that showed no evidence of any dissection of the cervical and the vertebral arteries and there was no evidence of any significant stenosis in the carotids or in the intracranial arteries. There was however an area of atelectasis in the left upper lobe and this is based on the partial visualization of the lung windows done on the CAT scan of the head and neck. The patient is quite hypoxic and she is currently on 5 L of oxygen by nasal cannula with pulse ox 92%. Based on those findings, pulmonary consultation was requested. Her proBNP level is 6490. She is currently on IV heparin based on elevated troponins. She is also on aspirin. Cardiology is also on the case. Echocardiogram was done and the patient was found to have a normal LV function, severe RV dilatation and evidence of severe pulmonary hypertension. On 03/16/2024, the patient remains quite unresponsive. Remains on BiPAP. Barely responsive to painful stimulation. Mental status is significantly diminished. She remains on a BiPAP pressure of 12/5 with an FiO2 of 40%. Generated tidal volumes noted of 200 cc. The blood gas from today showed a pH of 7.14 with a pCO2 of above 98 and pO2 of 101. Based on that, I do lengthy discussion with the family and recommended intubation mechanical ventilation while the patient's stroke evolves further. The chest x-ray from today shows COPD with diffuse inc reased interstitial infiltrates bilaterally. This could be fluid versus interstitial pneumonia and the patient remains on IV Zosyn. The patient's cardiac rhythm is sinus. No further episodes of atrial fibrillation has been noted and the patient remains on IV heparin. IV fluids are in the form of normal saline at rate of 75 cc an hour. She remains on bronchodilators. She remains on systemic steroids. A follow-up CAT scan of the brain was done yesterday and it showed evidence of subacute multiple infarcts and there was no evidence of any bleeding. Based on all this, the patient was intubated and currently is on assist-control mode of mechanical ventilation at rate of 24, tidal volume of 400 with a PEEP of 5 and FiO2 of 100%. Postintubation blood gas showed a pH of 7.29 with a pCO2 of 76 and pO2 of 374. FiO2 will be gradually weaned. Triple-lumen catheter and a arterial line was also inserted. Enteral feeding will be also initiated. She remains on aspirin. She remains on sta tins. Patient was seen today , patient was intubated yesterday, and she is now on mechanical ventilation. Patient developed worsening hypoxic and hypercapnic respiratory failure required intubation mechanical ventilation. Patient is now on assist-control rate of 20 tidal volume 400 FiO2 40% and PEEP of 5 ABG showed a pO2 of 93 pCO2 45 pH of 7.47 hence no changes were made in her present ventilator settings. Patient is on vital AF at 10 cc/h she is also on propofol at 50 mcg/kg/min, amiodarone 0.5 mg/min heparin drip IV fluid 0.9 normal saline at 75 cc/h Solu-Medrol 60 every 6 Zosyn empirically for possible aspiration. Patient had a presentation of 2 weeks history of headache and stuttering. She was found to have right parietal CVA. Patient was intubated on 03/16 remains intubated and sedated. Chest x-ray showed COPD with ongoing interstitial opacities throughout both lungs. And opacity noted in the left retrocardiac area suspicious for pneumonia with some opacity in the right base that seems to be improving WBC count today is 7.7 hemoglobin 13.5 basic metabolic profile is normal, BUN is 40 creatinine 0.83 Patient was seen today on 03/18/2024, remains in ICU, intubated and mechanically ventilated, on assist-control rate of 20 tidal volume 400 FiO2 40% and PEEP of 5 ABG showed a pO2 of 134 pCO2 44 pH of 7.44. Based on ABG I recommended cutting down her FiO2 to 35% and decreased today down to 18. Patient is on vital HP at she is also on propofol at 20 mcg/kg/min, heparin drip IV fluid 0.9 normal saline at 75 cc/h patient is receiving Zosyn empirically. She had fluid balance +1 L over the last 24 hours. WBC count is 8.7 hemoglobin 13.9 platelets are 144. Electrolytes are normal renal profile is normal with BUN of 33 creatinine 0.61 blood sugar is 204 chest x-ray is showing nonspecific interstitial infiltrates and a patchy left retrocardiac opacity. Objective - Vital Signs Vital signs: Vital Signs Temp 98.9 F 03/18/24 12:00 Pulse 75 03/18/24 13:06 Resp 18 03/18/24 12:00 BP 127/73 03/18/24 02:00 Pulse Ox 97 03/18/24 12:00 FiO2 35 03/18/24 12:53 Intake & Output 03/17/24 03/18/24 03/18/24 18:59 06:59 18:59 Intake Total 6054.417 0636.455 847.265 Output Total 900 835 485 Balance 726.671 274.455 362.265 Weight 67.2 kg 68.2 kg Intake: IV 900 1025 550 Piperacillin-Tazobactam 3 200 100 .375 gm In Sodium Chloride 0.9% 100 ml @ 25 mls/hr IVPB Q8H [facility] Rx#: [id number] Sodium Chloride 0.9% 1, 900 825 450 000 ml @ 75 mls/hr IV . [id number] [facility] Rx#:[id number] Intake, IV Titration 646.671 84.455 27.265 Amount Amiodarone 450 mg In 250 Dextrose 5% in Water 250 ml @ 0.5 MG/MIN 16.667 mls/hr IV .Q15H [facility] Rx#: [id number] Heparin Sod,Pork in 0.45% 216.722 NaCl 25,000 unit In 0.45 % NaCl 1 250ml.bag @ 18 UNITS/KG/HR 11.538 mls/hr IV .[id number] [facility] Rx#: [id number] propofoL 1,000 mg In 179.949 84.455 27.265 Empty Bag 1 bag @ 15 MCG/ KG/MIN 5.985 mls/hr IV . [id number] [facility] Rx#:[id number] Tube Feeding 80 150 Other 120 Output: Urine 900 835 485 Other: Voiding Method Indwelling Catheter Indwelling Catheter Indwelling Catheter ABP, PAP, CO, CI - Last Documented Arterial Blood Pressure 140/61 - Exam physical exam revealed a 73-year-old female intubated mechanically ventilated sedated in no distress Head exam is unremarkable. No scleral icterus or corneal arcus noted. Neck is without jugular venous distension, thyromegaly, or carotid bruits. Lungs symmetrical chest expansion slightly diminished breath sound at the bases no rhonchi no wheezes Cardiac exam distant S1-S2, no S3 gallop, no murmur. Abdominal exam reveals soft nontender no megaly no rebound no guarding Extremities no clubbing edema or cyanosis. Examination of the skin showed no specific rashes Neurologically, patient could not be assessed, sedated, intubated mechanically ventilated Psychiatric: Could not assess. Patient is sedated on propofol - Labs CBC & Chem 7: 03/18/24 05:15 03/18/24 05:15 Labs: Abnormal Lab Results - Last 24 Hours (Table) 03/17/24 03/18/24 03/18/24 Range/Units 18:05 00:44 05:12 MCHC (31.0-37.0) g/dL Plt Count (150-450) k/uL Neutrophils # (1.3-7.7) k/uL Lymphocytes # (1.0-4.8) k/uL APTT (22.0-30.0) sec ABG pO2 134 H (83-108) mmHg ABG HCO3 30 H (21-25) mmol/L ABG Total CO2 32 H (19-24) mmol/L ABG O2 Saturation 99.5 H (94-97) % Sodium (137-145) mmol/L Carbon Dioxide (22-30) mmol/L BUN (7-17) mg/dL Glucose (74-99) mg/dL POC Glucose (mg/dL) 203 H 209 H (70-110) mg/dL Calcium (8.4-10.2) mg/dL 03/18/24 03/18/24 03/18/24 Range/Units 05:15 05:15 05:15 MCHC 30.6 L (31.0-37.0) g/dL Plt Count 144 L (150-450) k/uL Neutrophils # 7.8 H (1.3-7.7) k/uL Lymphocytes # 0.3 L (1.0-4.8) k/uL APTT 43.5 H (22.0-30.0) sec ABG pO2 (83-108) mmHg ABG HCO3 (21-25) mmol/L ABG Total CO2 (19-24) mmol/L ABG O2 Saturation (94-97) % Sodium 134 L (137-145) mmol/L Carbon Dioxide 31 H (22-30) mmol/L BUN 33 H (7-17) mg/dL Glucose 204 H (74-99) mg/dL POC Glucose (mg/dL) (70-110) mg/dL Calcium 8.0 L (8.4-10.2) mg/dL 03/18/24 03/18/24 Range/Units 05:20 11:45 MCHC (31.0-37.0) g/dL Plt Count (150-450) k/uL Neutrophils # (1.3-7.7) k/uL Lymphocytes # (1.0-4.8) k/uL APTT (22.0-30.0) sec ABG pO2 (83-108) mmHg ABG HCO3 (21-25) mmol/L ABG Total CO2 (19-24) mmol/L ABG O2 Saturation (94-97) % Sodium (137-145) mmol/L Carbon Dioxide (22-30) mmol/L BUN (7-17) mg/dL Glucose (74-99) mg/dL POC Glucose (mg/dL) 188 H 225 H (70-110) mg/dL Calcium (8.4-10.2) mg/dL Microbiology - Last 24 Hours (Table) 03/16/24 10:22 Gram Stain - Final Sputum Sputum Culture - Final Assessment and Plan Assessment: Impression n: Acute CVA, involving right parietal lobe. Acute on chronic hypoxic and hypercapnic respiratory failure requiring intubation and mechanical ventilation, patient has underlying COPD History of COPD Paroxysmal atrial fibrillation Possible chronic hypoxic and hypercapnic respiratory failure Tobacco dependence syndrome, Severe pulmonary hypertension related to chronic obstructive lung disease and chronic hypoxia Abnormal troponins no evidence of acute ST segment changes Hypertension Dyslipidemia Recommendation: Continue ventilatory support, however the patient will be given a sedation holiday today will address her mental status and decide whether the patient could be given a weaning trial today. Meantime: Continue heparin Continue aspirin Considering the patient multiple subacute infarcts on CT of the brain may have to consider BRIAN at a later stage. Continue to follow neurologic recommendation regarding her CVA Continue bronchodilators and steroids Continue GI DVT prophylaxis Continue Zosyn empirically chest x-ray is suggestive of possible aspiration pneumonia Continue to monitor mental status and daily assessment of mental status including assessment of mental status today off sedation Garcia was updated on her clinical situation at bedside. Patient is critically ill Critical care time is over 30 minutes Will continue to Time with Patient: Greater than 30
--- NOTE | 2024-03-18 13:51 | P.PN ---
Subjective Progress Note Date: 03/18/24 I am following up with the patient and according to the nurse patient IV propofol has been stopped for about 2 hours and a half. She was on IV Propofol 20mcg/kg/min. The nurse states, patient wiggled her toes. Objective - Vital Signs Vital signs: Vital Signs Temp 98.9 F 03/18/24 12:00 Pulse 75 03/18/24 13:06 Resp 18 03/18/24 12:00 BP 127/73 03/18/24 02:00 Pulse Ox 97 03/18/24 12:00 FiO2 35 03/18/24 12:53 Intake & Output 03/17/24 03/18/24 03/18/24 18:59 06:59 18:59 Intake Total 4780.139 7789.455 847.265 Output Total 900 835 485 Balance 726.671 274.455 362.265 Weight 67.2 kg 68.2 kg Intake: IV 900 1025 550 Piperacillin-Tazobactam 3 200 100 .375 gm In Sodium Chloride 0.9% 100 ml @ 25 mls/hr IVPB Q8H [facility] Rx#: [id number] Sodium Chloride 0.9% 1, 900 825 450 000 ml @ 75 mls/hr IV . [id number] [facility] Rx#:[id number] Intake, IV Titration 646.671 84.455 27.265 Amount Amiodarone 450 mg In 250 Dextrose 5% in Water 250 ml @ 0.5 MG/MIN 16.667 mls/hr IV .Q15H [facility] Rx#: [id number] Heparin Sod,Pork in 0.45% 216.722 NaCl 25,000 unit In 0.45 % NaCl 1 250ml.bag @ 18 UNITS/KG/HR 11.538 mls/hr IV .[id number] [facility] Rx#: [id number] propofoL 1,000 mg In 179.949 84.455 27.265 Empty Bag 1 bag @ 15 MCG/ KG/MIN 5.985 mls/hr IV . [id number] [facility] Rx#:[id number] Tube Feeding 80 150 Other 120 Output: Urine 900 835 485 Other: Voiding Method Indwelling Catheter Indwelling Catheter Indwelling Catheter ABP, PAP, CO, CI - Last Documented Arterial Blood Pressure 140/61 - Exam General: Lying in bed and does not appear in acute distress. Lung: Intubated on a ventilator. Neuro: Very limited. Patient is on IV Propofol 20mcg/kg/min was hled for 2.3 hours prior to examination. I had to manually open eyes and primary gaze is midline, pinpoint. No appreciable facial weakness from limitation. Motor: Limited. No spontaneous movement. - Labs CBC & Chem 7: 03/18/24 05:15 03/18/24 05:15 Labs: Abnormal Lab Results - Last 24 Hours (Table) 03/17/24 03/18/24 03/18/24 Range/Units 18:05 00:44 05:12 MCHC (31.0-37.0) g/dL Plt Count (150-450) k/uL Neutrophils # (1.3-7.7) k/uL Lymphocytes # (1.0-4.8) k/uL APTT (22.0-30.0) sec ABG pO2 134 H (83-108) mmHg ABG HCO3 30 H (21-25) mmol/L ABG Total CO2 32 H (19-24) mmol/L ABG O2 Saturation 99.5 H (94-97) % Sodium (137-145) mmol/L Carbon Dioxide (22-30) mmol/L BUN (7-17) mg/dL Glucose (74-99) mg/dL POC Glucose (mg/dL) 203 H 209 H (70-110) mg/dL Calcium (8.4-10.2) mg/dL 03/18/24 03/18/24 03/18/24 Range/Units 05:15 05:15 05:15 MCHC 30.6 L (31.0-37.0) g/dL Plt Count 144 L (150-450) k/uL Neutrophils # 7.8 H (1.3-7.7) k/uL Lymphocytes # 0.3 L (1.0-4.8) k/uL APTT 43.5 H (22.0-30.0) sec ABG pO2 (83-108) mmHg ABG HCO3 (21-25) mmol/L ABG Total CO2 (19-24) mmol/L ABG O2 Saturation (94-97) % Sodium 134 L (137-145) mmol/L Carbon Dioxide 31 H (22-30) mmol/L BUN 33 H (7-17) mg/dL Glucose 204 H (74-99) mg/dL POC Glucose (mg/dL) (70-110) mg/dL Calcium 8.0 L (8.4-10.2) mg/dL 03/18/24 03/18/24 Range/Units 05:20 11:45 MCHC (31.0-37.0) g/dL Plt Count (150-450) k/uL Neutrophils # (1.3-7.7) k/uL Lymphocytes # (1.0-4.8) k/uL APTT (22.0-30.0) sec ABG pO2 (83-108) mmHg ABG HCO3 (21-25) mmol/L ABG Total CO2 (19-24) mmol/L ABG O2 Saturation (94-97) % Sodium (137-145) mmol/L Carbon Dioxide (22-30) mmol/L BUN (7-17) mg/dL Glucose (74-99) mg/dL POC Glucose (mg/dL) 188 H 225 H (70-110) mg/dL Calcium (8.4-10.2) mg/dL Microbiology - Last 24 Hours (Table) 03/16/24 10:22 Gram Stain - Final Sputum Sputum Culture - Final Assessment and Plan Assessment: Ms. Ponce is a 73-year-old female with history of hypertension, COPD, and bilateral cataracts who was brought to the hospital on March 11 with some speech abnormalities and lethargy. She was noted on CT scan to have a right parietal as well as left precentral gyrus infarct. I personally reviewed it and felt over the left fronto/parietal region) Acute ischemic stroke (right parietal as well as left precentral gyrus infarct on CT per my colleague and per reading radiologist bilateral hemsiphere but I felt over the left fronto/parietal/occipital region and precentral region) and appears embolic (cardioembolic, especially with Atrial fibrillation) Respiratory distress and is intubated on ventilator Paroxysmal atrial fibrillation Severe pulmonary hypertension Hypertension Hyperlipidemia History of COPD Tobacco dependence Plan: I agree once the patient is extubated recommend MRI of the brain for further evaluation of the stroke. It seems the patient will require long-term anticoagulant for the management of embolic stroke in light of her atrial fibrillation and it seems that she is on heparin drip. Seems that she is exhibiting some degree of hematuria and will defer the management to the ICU. With my colleague heparin drip needs to be discontinued for short period of time she is receiving rectal aspirin which will cover her minimally for stroke protection. He is on aspirin 325 daily. Patient is on Lipitor 40 mg daily. Continue neurochecks Cardiac monitoring PT OT and [employer] are consulted. Recommend sedation holiday at least 24-48 hours for better evaluation of kareen rological examination. For DVT prophylaxis the patient is on heparin drip Discussed with ICU nurse. Will continue to follow-up Time with Patient: Less than 30
--- NOTE | 2024-03-18 16:05 | P.PN ---
Subjective Progress Note Date: 03/18/24 Principal diagnosis: Reason for follow-up is pneumonia Patient is a 73-year-old female with a past medical history significant for COPD hypertension hyperlipidemia patient was brought into the hospital for evaluation of mental status changes and was being worked up for stroke did have worsening of respiratory status concerning for aspiration prompted this consultation. Patient did have worsening of her respiratory status got intubated on 03/16/2024 On today's evaluation that is 03/18/2024, Patient is afebrile this morning patient remains to be intubated on the vent patient FiO2 is currently stable at 35% no significant purulent secretion through the ET, vomiting or diarrhea has been reported by the nursing staff. Patient white count is 8.7, creatinine is 0.61 sputum has been negative so far Objective - Vital Signs Vital signs: Vital Signs Temp 98.9 F 03/18/24 12:00 Pulse 78 03/18/24 12:52 Resp 18 03/18/24 12:00 BP 127/73 03/18/24 02:00 Pulse Ox 97 03/18/24 12:00 FiO2 35 03/18/24 12:53 Intake & Output 03/17/24 03/18/24 03/18/24 18:59 06:59 18:59 Intake Total 7301.790 3315.455 847.265 Output Total 900 835 485 Balance 726.671 274.455 362.265 Weight 67.2 kg 68.2 kg Intake: IV 900 1025 550 Piperacillin-Tazobactam 3 200 100 .375 gm In Sodium Chloride 0.9% 100 ml @ 25 mls/hr IVPB Q8H [facility] Rx#: [id number] Sodium Chloride 0.9% 1, 900 825 450 000 ml @ 75 mls/hr IV . [id number] [facility] Rx#:[id number] Intake, IV Titration 646.671 84.455 27.265 Amount Amiodarone 450 mg In 250 Dextrose 5% in Water 250 ml @ 0.5 MG/MIN 16.667 mls/hr IV .Q15H [facility] Rx#: [id number] Heparin Sod,Pork in 0.45% 216.722 NaCl 25,000 unit In 0.45 % NaCl 1 250ml.bag @ 18 UNITS/KG/HR 11.538 mls/hr IV .[id number] [facility] Rx#: [id number] propofoL 1,000 mg In 179.949 84.455 27.265 Empty Bag 1 bag @ 15 MCG/ KG/MIN 5.985 mls/hr IV . [id number] [facility] Rx#:[id number] Tube Feeding 80 150 Other 120 Output: Urine 900 835 485 Other: Voiding Method Indwelling Catheter Indwelling Catheter Indwelling Catheter ABP, PAP, CO, CI - Last Documented Arterial Blood Pressure 140/61 - Exam GENERAL DESCRIPTION: An elderly female intubated on the vent RESPIRATORY SYSTEM: Unlabored breathing , decreased breath sounds at bases HEART: S1 S2 regular rate and rhythm , ABDOMEN: Soft , no tenderness EXTREMITIES: No edema feet - Labs CBC & Chem 7: 03/18/24 05:15 03/18/24 05:15 Labs: Abnormal Lab Results - Last 24 Hours (Table) 03/17/24 03/18/24 03/18/24 Range/Units 18:05 00:44 05:12 MCHC (31.0-37.0) g/dL Plt Count (150-450) k/uL Neutrophils # (1.3-7.7) k/uL Lymphocytes # (1.0-4.8) k/uL APTT (22.0-30.0) sec ABG pO2 134 H (83-108) mmHg ABG HCO3 30 H (21-25) mmol/L ABG Total CO2 32 H (19-24) mmol/L ABG O2 Saturation 99.5 H (94-97) % Sodium (137-145) mmol/L Carbon Dioxide (22-30) mmol/L BUN (7-17) mg/dL Glucose (74-99) mg/dL POC Glucose (mg/dL) 203 H 209 H (70-110) mg/dL Calcium (8.4-10.2) mg/dL 03/18/24 03/18/24 03/18/24 Range/Units 05:15 05:15 05:15 MCHC 30.6 L (31.0-37.0) g/dL Plt Count 144 L (150-450) k/uL Neutrophils # 7.8 H (1.3-7.7) k/uL Lymphocytes # 0.3 L (1.0-4.8) k/uL APTT 43.5 H (22.0-30.0) sec ABG pO2 (83-108) mmHg ABG HCO3 (21-25) mmol/L ABG Total CO2 (19-24) mmol/L ABG O2 Saturation (94-97) % Sodium 134 L (137-145) mmol/L Carbon Dioxide 31 H (22-30) mmol/L BUN 33 H (7-17) mg/dL Glucose 204 H (74-99) mg/dL POC Glucose (mg/dL) (70-110) mg/dL Calcium 8.0 L (8.4-10.2) mg/dL 03/18/24 03/18/24 Range/Units 05:20 11:45 MCHC (31.0-37.0) g/dL Plt Count (150-450) k/uL Neutrophils # (1.3-7.7) k/uL Lymphocytes # (1.0-4.8) k/uL APTT (22.0-30.0) sec ABG pO2 (83-108) mmHg ABG HCO3 (21-25) mmol/L ABG Total CO2 (19-24) mmol/L ABG O2 Saturation (94-97) % Sodium (137-145) mmol/L Carbon Dioxide (22-30) mmol/L BUN (7-17) mg/dL Glucose (74-99) mg/dL POC Glucose (mg/dL) 188 H 225 H (70-110) mg/dL Calcium (8.4-10.2) mg/dL Microbiology - Last 24 Hours (Table) 03/16/24 10:22 Gram Stain - Final Sputum Sputum Culture - Final Assessment and Plan (1) Aspiration pneumonia Current Visit: Yes Status: Acute Code(s): J69.0 - PNEUMONITIS DUE TO INHALATION OF FOOD AND VOMIT SNOMED Code(s): 703446444 Plan: 1patient with worsening respiratory status and this patient initially brought into the hospital with slurred speech and being worked up for a CVA with wors ening of respiratory status requiring BiPAP and a question of possible aspiration. 2patient did have CT angiogram of the chest shows consolidation concerning for pneumonia possible aspiration repeat CT of the brain concerning for subacute infarct with some progression neurology is following the patient 3patient did have worsening of respiratory status requiring intubation sputum culture has been obtained which are so far negative 4patient is afebrile white count normal, patient is currently being treated with Zosyn while waiting for condition to stabilize Dictation was produced using [employer] dictation software. please excuse any grammatical, word or spelling errors. Time with Patient: Less than 30
[2024-03-18 17:46] LABS: Glucose,Whole Blood 245 mg/dL (70-110)
[2024-03-18 23:35] LABS: Glucose,Whole Blood 204 mg/dL (70-110)
--- NOTE | 2024-03-19 00:07 | PN ---
PROGRESS NOTE SUBJECTIVE: Mirtha is a 73-year-old lady with history of CVA, who is not responsive and has history of paroxysmal atrial fibrillation. CURRENT MEDICATIONS: 1. Amiodarone 200 b.i.d. that I started this morning. 2. Aspirin. 3. Norvasc. 4. Lipitor. 5. Intravenous heparin. 6. Cozaar. 7. Lopressor. OBJECTIVE: VITAL SIGNS: Heart rate is 65 beats per minute, blood pressure is 144/62, respiratory rate is 18. CHEST: Good air entry bilaterally. HEART: First and second heart sounds. No gallop. ABDOMEN: Soft. EXTREMITIES: Mild edema. LABORATORY DATA: Hemoglobin of 13.9, potassium is 4, and creatinine 0.6. ASSESSMENT: Paroxysmal atrial fibrillation, cerebrovascular accident, elevated troponin secondary to type 2 myocardial infarction. PLAN: I will stop the IV amiodarone, start oral amiodarone and leave her on IV heparin at this time. MMODL / IJN: [id number] /
[2024-03-19 04:59] LABS: ABG Base Excess 5.4 mmol/L; ABG HCO3 31 mmol/L (21-25); ABG PCO2 46 mmHg (35-45); ABG PH 7.43 (7.35-7.45); ABG PO2 96 mmHg (83-108); ABG TCO2 32 mmol/L (19-24)
[2024-03-19 05:06] LABS: Glucose,Whole Blood 163 mg/dL (70-110)
[2024-03-19 05:33] LABS: Basophils % (A) 0 %; Eosinophils % (A) 0 %; HCT 35.7 % (34.0-46.0); Hypochromasia Marked; Lymphocytes # (A) 0.2 k/uL (1.0-4.8); Lymphocytes % (A) 3 %; MCH 26.4 pg (25.0-35.0); MCHC 30.7 g/dL (31.0-37.0); Monocytes # (A) 0.5 k/uL (0-1.0); Monocytes % (A) 7 %; Neutrophils # (A) 6.2 k/uL (1.3-7.7); Neutrophils % (A) 88 %; Platelet Count 115 k/uL (150-450); RBC 4.16 m/uL (3.80-5.40); RDW 15.5 % (11.5-15.5)
[2024-03-19 06:01] LABS: ALT 9 U/L (4-34); AST 12 U/L (14-36); African American GFR (CKD) >90 (>60 ml/min/1.73 sqM); Albumin 1.6 g/dL (3.5-5.0); Alkaline Phosphatase 27 U/L (38-126); Anion Gap -1 mmol/L; Blood Urea Nitrogen 27 mg/dL (7-17); Carbon Dioxide 23 mmol/L (22-30); Chloride 114 mmol/L (98-107); Glucose 166 mg/dL (74-99); Non-African American GFR(CKD) >90 (>60 ml/min/1.73 sqM); Potassium 3.1 mmol/L (3.5-5.1); Sodium 136 mmol/L (137-145); Total Bilirubin 0.8 mg/dL (0.2-1.3); Total Protein 3.6 g/dL (6.3-8.2)
[2024-03-19 06:07] LABS: Calcium 5.7 mg/dL (8.4-10.2)
[2024-03-19] MEDS: CALCIUM GLUCONATE IN NACL 2 GM in SALINE 1 100ML.BAG IVPB ONE (06:23)
[2024-03-19] MEDS: POTASSIUM CHLORIDE 20 MEQ in WATER FOR INJECTION 1 100ML.BAG IVPB SCH (06:23)
--- NOTE | 2024-03-19 07:58 | XR ---
EXAMINATION TYPE: XR chest 1V portable DATE OF EXAM: 03/19/2024 4:35 AM COMPARISON: 03/18/2024 CLINICAL INDICATION: Female, 73 years old with history of Tube placement, , FINDINGS: Indication NG tube are satisfactory. Left CVC tip at the lower SVC. Heart borderline enlarged. Hyperi nflation. Diffuse interstitial opacities. Some of the previous patchy bibasilar opacities show some i mprovement. IMPRESSION: COPD with borderline cardiomegaly and ongoing interstitial opacities. Consider mild interstitial pulm onary edema. Some of the previous bibasilar patchy densities show some improvement. [facility], , 03/19/2024 7:56 AM
--- NOTE | 2024-03-19 09:24 | P.PN ---
Subjective Progress Note Date: 03/19/24 Mirtha Ponce is a 73-year-old female patient who initially presented to her PCP with complaints of slurring of speech patient was directed to come to ER for further evaluation. At this time patient is in bed sleeping not following commands or answering questions. Family at bedside history obtained through them and medical records. According to family patient was found to be having slurred speech patient did not want to come to ER at that time so was taken to PCP. Per family patient is a heavy smoker but denies any alcohol or drug use. Denies any recent illness. Additional medical history includes COPD, hypertension. Head CT completed showing right parietal lobe acute/subacute CVA. EKG completed showing sinus rhythm. Chest x-ray completed showing cardiomegaly with pulmonary vascular congestion correlate with serum BNP COPD changes. Lab work revealing troponin 0.379, 0.429 and 0.436, white blood cell 5.7, hemoglobin 15.4 creatinine 0.56 bun 14. At this time neurology services have been consulted MRI of the brain has been ordered CTA of the carotids ordered. Will order 2D echo and consult cardiology services. Due to patient's increasing altered mental status changes and concerns for respiratory status we will consult pulmonary services. Patient's BNP also elevated at 6490 will give 1 dose of IV Lasix. Current vital signs temp 97.9, heart rate 96, respiratory rate 18, blood pressure 100/59 with a pulse ox of 95% on nonrebreather. On 03/13/2024 patient was seen and examined on the medical floor she is alert and oriented x 3 in no apparent distress, she has a low-grade fever of 99.4 pulse 108 respiration 22 blood pressure 123/61 pulse ox 91% on 6 L nasal cannula, she has cough, with minimal sputum production she denies any chest pain or shortness of breath no nausea or vomiting no abdominal pain no diarrhea and no urinary symptoms. At this time will keep patient n.p.o. for possible aspiration, will start IV Zosyn and repeat chest x-ray, infectious disease con sultation was added, will continue with IV heparin due to elevated troponin levels, awaiting cardiology input. Neurology consult reviewed. On 03/14/2024 patient remains lethargic in the intensive care unit. Patient was placed on BiPAP. Patient also started on IV Zosyn for concerns of aspiration pneumonia patient not following commands at this time recommendations for possible Dobbhoff placement in order to administer oral medications. Neurology services are following MRI has been ordered but cannot be performed while patient is on BiPAP and heparin. Critical care services following infectious disease, cardiology and neurology services following. Current vital signs temp 98.1, heart rate 96, respiratory rate 27, blood pressure 119/69 with a pulse ox of 96% on BiPAP with an FiO2 of 45%. Family at bedside all questions answered On 03/15/2024 patient was seen and examined in the intensive care unit, she is not responsive at this time she is maintained on BiPAP, vital examination r eveals a temperature of 97.9 pulse 89 respiration 24 blood pressure 110/62 pulse ox 99% on FiO2 45% White blood count is 8.7 hemoglobin 13.8 platelet count 249 arterial blood gas revealed a pH of 7.24 pCO2 95% PaO2 96%, BUN 43 creatinine 0.69. Patient is followed by neurology, infectious disease, cardiology and pulmonary critical care, she remains on IV heparin. CT scan of the brain, was repeated yesterday and reveals multiple subacute infarcts no acute bleed or mass effect, chest x-r ay done this morning reveals diffuse interstitial infiltrates. Prognosis is guarded. On 03/16/2024 patient remains in the intensive care unit ABGs continued to decline despite BiPAP. Plans for intubation today per critical care.. Family at bedside. Plan discussed with family and nursing staff. Patient remains on IV Zosyn and IV Cardizem. Prognosis remains guarded. Neurology, infectious disease, cardiology and critical care services are all following. On 03/17/2024 patient was seen and examined in the intensive care unit, she is intubated sedated maintained on mechanical ventilation, assist control rate of 20 FiO2 40% with a PEEP of 5, she is maintained on IV antibiotic Zosyn and IV Solu-Medrol 60 mg every 6 hours. White blood count is 7.7 hemoglobin 13.5 platelet count 169 BUN 40 creatinine 0.83, patient is still maintained on IV heparin. Will continue to follow closely On 03/18/2024 patient remains in the intensive care unit intubated and sedated on mechanical ventilation with an FiO2 of 40%. Patient remains on IV antibiotics Zosyn. Patient remains on IV heparin drip. WBC 8.7, hemoglobin 13.9 creatinine 0.61 bun 33 multiple consults following On 03/19/2024 patient remains in the intensive care unit. Sedation has been stopped per critical care will assess mentation. Current vital signs temp 98.2, heart rate 75, respiratory rate 20, blood pressure 117/66 with pulse ox of 96% on mechanical ventilation with an FiO2 of 35%. White blood cell 7.0 hemoglobin 11.0 creatinine 0.51 bun 27 potassium low at 3.1 this to be replaced per protocol. Multiple consults following Objective - Vital Signs Vital signs: Vital Signs Temp 98 F 03/19/24 05:00 Pulse 71 03/19/24 07:00 Resp 18 03/19/24 07:00 BP 104/58 03/19/24 07:00 Pulse Ox 96 03/19/24 07:00 FiO2 35 03/19/24 05:00 Intake & Output 03/18/24 03/19/24 03/19/24 18:59 06:59 18:59 Intake Total 0305.373 4669 Output Total 950 770 Balance 852.012 8310 Weight 70.5 kg Intake: IV 1000 1325 Calcium Gluconate in NaCl 100 2 gm In Saline 1 100ml. bag @ 100 mls/hr IVPB ONCE ONE Rx#:[id number] Piperacillin-Tazobactam 3 100 200 .375 gm In Sodium Chloride 0.9% 100 ml @ 25 mls/hr IVPB Q8H [facility] Rx#: [id number] Potassium Chloride 20 meq 50 In Water For Injection 1 100ml.bag @ 50 mls/hr IVPB Q2H [facility] Rx#: [id number] Sodium Chloride 0.9% 1, 900 975 000 ml @ 75 mls/hr IV . [id number] [facility] Rx#:[id number] Intake, IV Titration 27.265 250 Amount Heparin Sod,Pork in 0.45% 250 NaCl 25,000 unit In 0.45 % NaCl 1 250ml.bag @ 18 UNITS/KG/HR 11.538 mls/hr IV .[id number] [facility] Rx#: [id number] propofoL 1,000 mg In 27.265 Empty Bag 1 bag @ 15 MCG/ KG/MIN 5.985 mls/hr IV . [id number] [facility] Rx#:[id number] Tube Feeding 360 455 Other 180 Output: Urine 950 770 Other: Voiding Method Indwelling Catheter Indwelling Catheter ABP, PAP, CO, CI - Last Documented Arterial Blood Pressure 139/59 - Exam Head normocephalic Neck supple Lungs clear to auscultation bilaterally no wheezing or crackles Heart regular rate and rhythm S1-S2, no rub or gallop Abdomen is soft nontender nondistended positive bowel sounds no hepatosplenomegaly Extremities no edema Neuro patient is unresponsive - Labs CBC & Chem 7: 03/19/24 05:00 03/19/24 05:00 Labs: Abnormal Lab Results - Last 24 Hours (Table) 03/18/24 03/18/24 03/18/24 Range/Units 11:45 17:44 23:33 Hgb (11.4-16.0) gm/dL MCHC (31.0-37.0) g/dL Plt Count (150-450) k/uL Lymphocytes # (1.0-4.8) k/uL APTT (22.0-30.0) sec ABG pCO2 (35-45) mmHg ABG HCO3 (21-25) mmol/L ABG Total CO2 (19-24) mmol/L ABG O2 Saturation (94-97) % Sodium (137-145) mmol/L Potassium (3.5-5.1) mmol/L Chloride (98-107) mmol/L BUN (7-17) mg/dL Creatinine (0.52-1.04) mg/dL Glucose (74-99) mg/dL POC Glucose (mg/dL) 225 H 245 H 204 H (70-110) mg/dL Calcium (8.4-10.2) mg/dL AST (14-36) U/L Alkaline Phosphatase (38-126) U/L Total Protein (6.3-8.2) g/dL Albumin (3.5-5.0) g/dL 03/19/24 03/19/24 03/19/24 Range/Units 04:55 05:00 05:00 Hgb 11.0 L (11.4-16.0) gm/dL MCHC 30.7 L (31.0-37.0) g/dL Plt Count 115 L (150-450) k/uL Lymphocytes # 0.2 L (1.0-4.8) k/uL APTT (22.0-30.0) sec ABG pCO2 46 H (35-45) mmHg ABG HCO3 31 H (21-25) mmol/L ABG Total CO2 32 H (19-24) mmol/L ABG O2 Saturation 98.0 H (94-97) % Sodium 136 L (137-145) mmol/L Potassium 3.1 L (3.5-5.1) mmol/L Chloride 114 H (98-107) mmol/L BUN 27 H (7-17) mg/dL Creatinine 0.51 L (0.52-1.04) mg/dL Glucose 166 H (74-99) mg/dL POC Glucose (mg/dL) (70-110) mg/dL Calcium 5.7 L* (8.4-10.2) mg/dL AST 12 L (14-36) U/L Alkaline Phosphatase 27 L (38-126) U/L Total Protein 3.6 L (6.3-8.2) g/dL Albumin 1.6 L (3.5-5.0) g/dL 03/19/24 03/19/24 Range/Units 05:00 05:05 Hgb (11.4-16.0) gm/dL MCHC (31.0-37.0) g/dL Plt Count (150-450) k/uL Lymphocytes # (1.0-4.8) k/uL APTT 46.5 H (22.0-30.0) sec ABG pCO2 (35-45) mmHg ABG HCO3 (21-25) mmol/L ABG Total CO2 (19-24) mmol/L ABG O2 Saturation (94-97) % Sodium (137-145) mmol/L Potassium (3.5-5.1) mmol/L Chloride (98-107) mmol/L BUN (7-17) mg/dL Creatinine (0.52-1.04) mg/dL Glucose (74-99) mg/dL POC Glucose (mg/dL) 163 H (70-110) mg/dL Calcium (8.4-10.2) mg/dL AST (14-36) U/L Alkaline Phosphatase (38-126) U/L Total Protein (6.3-8.2) g/dL Albumin (3.5-5.0) g/dL Microbiology - Last 24 Hours (Table) 03/16/24 10:22 Gram Stain - Final Sputum Sputum Culture - Final Assessment and Plan Assessment: 1. Slurred speech and altered mental status changes likely secondary from CVA 2. Acute CHF exacerbation 3. Elevated troponins 4. Ongoing nicotine dependence greater than 1 pack/day 5. History of COPD 6. History of essential hypertension 7. Concerns of aspiration pneumonia patient started on IV Zosyn infectious disease service is consulted 8. Acute on chronic hypoxic and hypercapnic respiratory failure requiring intubation and mechanical ventilation Neurology, cardiology and pulmonary services consulted 2D echo and MRI of the brain ordered Patient started on heparin drip Patient remains on IV Zosyn Patient currently on BiPAP Remains in the intensive care unit Repeat labs ordered PT and OT services consulted
--- NOTE | 2024-03-19 11:22 | PN ---
PROGRESS NOTE HISTORY: Mirtha is a 73-year-old lady with history of CVA and paroxysmal atrial fibrillation, remains intubated and on the vent. PAST FAMILY PSYCHIATRIC HISTORY: VITAL SIGNS: On exam heart rate is 70 beats per minute, blood pressure is 104/58, respiratory rate 18. CHEST: Reveals occasional rhonchi bilaterally. HEART: Reveals first and second heart sounds. No gallop. EXTREMITIES: Did not reveal any edema. LABS: Show that the hemoglobin is 11. Potassium is 3.1. ASSESSMENT: 1. Paroxysmal atrial fibrillation. 2. CVA. 3. Elevated troponin. PLAN: Supplement the electrolytes and continue rest of current medication. Continue IV heparin. MMODL / IJN: [id number] /
[2024-03-19 11:49] LABS: Glucose,Whole Blood 216 mg/dL (70-110)
--- NOTE | 2024-03-19 11:53 | P.PN ---
Subjective Progress Note Date: 03/19/24 Principal diagnosis: Acute CVA This is a 73-year-old female patient, a chronic smoker smokes around 1.5 packs of cigarettes on a daily basis, known to have COPD, nevertheless, does not utilize any form of respiratory medications or inhalers on outpatient basis. Denies having any home O2. Most of the information was obtained from the son at the bedside who also happens to be a poor historian. The patient came into the hospital because of slurred speech and she was not following commands and she was altered. The patient had no fever. No headaches. No neck stiffness. CAT scan of the head showed a right parietal lobe acute/subacute infarcts. She was in normal sinus rhythm. At the same time, the patient was found to have elevated troponins of 0.3, 0.4 and 0.4 respectively x 3. The white cell count was at 5.7 with a hemoglobin 15.4 and the patient had a normal creatinine of 0.56 with a BUN of 14. Neurology was involved in her case and the patient was given a CTA of the brain that showed no evidence of any dissection of the cervical and the vertebral arteries and there was no evidence of any significant stenosis in the carotids or in the intracranial arteries. There was however an area of atelectasis in the left upper lobe and this is based on the partial visualization of the lung windows done on the CAT scan of the head and neck. The patient is quite hypoxic and she is currently on 5 L of oxygen by nasal cannula with pulse ox 92%. Based on those findings, pulmonary consultation was requested. Her proBNP level is 6490. She is currently on IV heparin based on elevated troponins. She is also on aspirin. Cardiology is also on the case. Echocardiogram was done and the patient was found to have a normal LV function, severe RV dilatation and evidence of severe pulmonary hypertension. On 03/16/2024, the patient remains quite unresponsive. Remains on BiPAP. Barely responsive to painful stimulation. Mental status is significantly diminished. She remains on a BiPAP pressure of 12/5 with an FiO2 of 40%. Generated tidal volumes noted of 200 cc. The blood gas from today showed a pH of 7.14 with a pCO2 of above 98 and pO2 of 101. Based on that, I do lengthy discussion with the family and recommended intubation mechanical ventilation while the patient's stroke evolves further. The chest x-ray from today shows COPD with diffuse inc reased interstitial infiltrates bilaterally. This could be fluid versus interstitial pneumonia and the patient remains on IV Zosyn. The patient's cardiac rhythm is sinus. No further episodes of atrial fibrillation has been noted and the patient remains on IV heparin. IV fluids are in the form of normal saline at rate of 75 cc an hour. She remains on bronchodilators. She remains on systemic steroids. A follow-up CAT scan of the brain was done yesterday and it showed evidence of subacute multiple infarcts and there was no evidence of any bleeding. Based on all this, the patient was intubated and currently is on assist-control mode of mechanical ventilation at rate of 24, tidal volume of 400 with a PEEP of 5 and FiO2 of 100%. Postintubation blood gas showed a pH of 7.29 with a pCO2 of 76 and pO2 of 374. FiO2 will be gradually weaned. Triple-lumen catheter and a arterial line was also inserted. Enteral feeding will be also initiated. She remains on aspirin. She remains on sta tins. Patient was seen today , patient was intubated yesterday, and she is now on mechanical ventilation. Patient developed worsening hypoxic and hypercapnic respiratory failure required intubation mechanical ventilation. Patient is now on assist-control rate of 20 tidal volume 400 FiO2 40% and PEEP of 5 ABG showed a pO2 of 93 pCO2 45 pH of 7.47 hence no changes were made in her present ventilator settings. Patient is on vital AF at 10 cc/h she is also on propofol at 50 mcg/kg/min, amiodarone 0.5 mg/min heparin drip IV fluid 0.9 normal saline at 75 cc/h Solu-Medrol 60 every 6 Zosyn empirically for possible aspiration. Patient had a presentation of 2 weeks history of headache and stuttering. She was found to have right parietal CVA. Patient was intubated on 03/16 remains intubated and sedated. Chest x-ray showed COPD with ongoing interstitial opacities throughout both lungs. And opacity noted in the left retrocardiac area suspicious for pneumonia with some opacity in the right base that seems to be improving WBC count today is 7.7 hemoglobin 13.5 basic metabolic profile is normal, BUN is 40 creatinine 0.83 Patient was seen today on 03/18/2024, remains in ICU, intubated and mechanically ventilated, on assist-control rate of 20 tidal volume 400 FiO2 40% and PEEP of 5 ABG showed a pO2 of 134 pCO2 44 pH of 7.44. Based on ABG I recommended cutting down her FiO2 to 35% and decreased today down to 18. Patient is on vital HP at 10/35 she is also on propofol at 20 mcg/kg/min, heparin drip IV fluid 0.9 normal saline at 75 cc/h patient is receiving Zosyn empirically. She had fluid balance +1 L over the last 24 hours. WBC count is 8.7 hemoglobin 13.9 platelets are 144. Electrolytes are normal renal profile is normal with BUN of 33 creatinine 0.61 blood sugar is 204 chest x-ray is showing nonspecific interstitial infiltrates and a patchy left retrocardiac opacity. Seen today on 03/19/2024, patient remains in the ICU, intubated and mechanically ventilated, on assist-control rate of 18 tidal volume 400 FiO2 35% and PEEP of 5 ABG showed a pO2 of 96 pCO2 46 pH of 7.43 patient was taken off propofol yesterday, remains on propofol, and does not seem to follow any instructions, she opens her eyes, withdraws to pain, moves her left upper extremity withdraws to pain mostly. Patient remains on heparin, IV fluid 0.9 at 75 cc/h vital HP at 35/35. Remains on Solu-Medrol and on Zosyn. Patient to remain off propofol today, and no plans to place her back on propofol for now. Would like to get further assessment of her mental status as she seems to be not responding purposefully to any stimuli except withdraws to pain. Patient opens her eyes but does not follow any instructions. WBC is 7.0 hemoglobin 11, basic metabolic profile noted, potassium is a bit low at 3.1 but renal profile is normal. Objective - Vital Signs Vital signs: Vital Signs Temp 98.8 F 03/19/24 08:00 Pulse 79 03/19/24 11:42 Resp 18 03/19/24 11:00 BP 114/65 03/19/24 11:00 Pulse Ox 100 03/19/24 11:00 FiO2 35 03/19/24 11:38 Intake & Output 03/18/24 03/19/24 03/19/24 18:59 06:59 18:59 Intake Total 6663.293 9336 460 Output Total 950 770 325 Balance 658.400 0403 135 Weight 70.5 kg Intake: IV 1000 1325 300 Calcium Gluconate in NaCl 100 2 gm In Saline 1 100ml. bag @ 100 mls/hr IVPB ONCE ONE Rx#:[id number] Piperacillin-Tazobactam 3 100 200 .375 gm In Sodium Chloride 0.9% 100 ml @ 25 mls/hr IVPB Q8H [facility] Rx#: [id number] Potassium Chloride 20 meq 50 In Water For Injection 1 100ml.bag @ 50 mls/hr IVPB Q2H [facility] Rx#: [id number] Sodium Chloride 0.9% 1, 900 975 300 000 ml @ 75 mls/hr IV . [id number] [facility] Rx#:[id number] Intake, IV Titration 27.265 250 Amount Heparin Sod,Pork in 0.45% 250 NaCl 25,000 unit In 0.45 % NaCl 1 250ml.bag @ 18 UNITS/KG/HR 11.538 mls/hr IV .[id number] [facility] Rx#: [id number] propofoL 1,000 mg In 27.265 Empty Bag 1 bag @ 15 MCG/ KG/MIN 5.985 mls/hr IV . [id number] [facility] Rx#:[id number] Tube Feeding 360 455 160 Other 180 Output: Urine 950 770 325 Other: Voiding Method Indwelling Catheter Indwelling Catheter Indwelling Catheter ABP, PAP, CO, CI - Last Documented Arterial Blood Pressure 125/57 - Exam physical exam revealed a 73-year-old female intubated mechanically ventilated sedated in no distress Head exam is unremarkable. No scleral icterus or corneal arcus noted. Neck is without jugular venous distension, thyromegaly, or carotid bruits. Lungs symmetrical chest expansion slightly diminished breath sound at the bases no rhonchi no wheezes Cardiac exam distant S1-S2, no S3 gallop, no murmur. Abdominal exam reveals soft nontender no megaly no rebound no guarding Extremities no clubbing edema or cyanosis. Examination of the skin showed no specific rashes Neurologically, off propofol, opens eyes, does not follow any instructions withdraws to pain Psychiatric: Could not assess. - Labs CBC & Chem 7: 03/19/24 05:00 03/19/24 05:00 Labs: Abnormal Lab Results - Last 24 Hours (Table) 03/18/24 03/18/24 03/19/24 Range/Units 17:44 23:33 04:55 Hgb (11.4-16.0) gm/dL MCHC (31.0-37.0) g/dL Plt Count (150-450) k/uL Lymphocytes # (1.0-4.8) k/uL APTT (22.0-30.0) sec ABG pCO2 46 H (35-45) mmHg ABG HCO3 31 H (21-25) mmol/L ABG Total CO2 32 H (19-24) mmol/L ABG O2 Saturation 98.0 H (94-97) % Sodium (137-145) mmol/L Potassium (3.5-5.1) mmol/L Chloride (98-107) mmol/L BUN (7-17) mg/dL Creatinine (0.52-1.04) mg/dL Glucose (74-99) mg/dL POC Glucose (mg/dL) 245 H 204 H (70-110) mg/dL Calcium (8.4-10.2) mg/dL AST (14-36) U/L Alkaline Phosphatase (38-126) U/L Total Protein (6.3-8.2) g/dL Albumin (3.5-5.0) g/dL 03/19/24 03/19/24 03/19/24 Range/Units 05:00 05:00 05:00 Hgb 11.0 L (11.4-16.0) gm/dL MCHC 30.7 L (31.0-37.0) g/dL Plt Count 115 L (150-450) k/uL Lymphocytes # 0.2 L (1.0-4.8) k/uL APTT 46.5 H (22.0-30.0) sec ABG pCO2 (35-45) mmHg ABG HCO3 (21-25) mmol/L ABG Total CO2 (19-24) mmol/L ABG O2 Saturation (94-97) % Sodium 136 L (137-145) mmol/L Potassium 3.1 L (3.5-5.1) mmol/L Chloride 114 H (98-107) mmol/L BUN 27 H (7-17) mg/dL Creatinine 0.51 L (0.52-1.04) mg/dL Glucose 166 H (74-99) mg/dL POC Glucose (mg/dL) (70-110) mg/dL Calcium 5.7 L* (8.4-10.2) mg/dL AST 12 L (14-36) U/L Alkaline Phosphatase 27 L (38-126) U/L Total Protein 3.6 L (6.3-8.2) g/dL Albumin 1.6 L (3.5-5.0) g/dL 03/19/24 Range/Units 05:05 Hgb (11.4-16.0) gm/dL MCHC (31.0-37.0) g/dL Plt Count (150-450) k/uL Lymphocytes # (1.0-4.8) k/uL APTT (22.0-30.0) sec ABG pCO2 (35-45) mmHg ABG HCO3 (21-25) mmol/L ABG Total CO2 (19-24) mmol/L ABG O2 Saturation (94-97) % Sodium (137-145) mmol/L Potassium (3.5-5.1) mmol/L Chloride (98-107) mmol/L BUN (7-17) mg/dL Creatinine (0.52-1.04) mg/dL Glucose (74-99) mg/dL POC Glucose (mg/dL) 163 H (70-110) mg/dL Calcium (8.4-10.2) mg/dL AST (14-36) U/L Alkaline Phosphatase (38-126) U/L Total Protein (6.3-8.2) g/dL Albumin (3.5-5.0) g/dL Microbiology - Last 24 Hours (Table) 03/16/24 10:22 Gram Stain - Final Sputum Sputum Culture - Final Assessment and Plan Assessment: Impression: Acute CVA, involving right parietal lobe. Acute on chronic hypoxic and hypercapnic respiratory failure requiring intubation and mechanical ventilation, patient has underlying COPD History of COPD Paroxysmal atrial fibrillation Possible chronic hypoxic and hypercapnic respiratory failure Tobacco dependence syndrome, Severe pulmonary hypertension related to chronic obstructive lung disease and chronic hypoxia Abnormal troponins no evidence of acute ST segment changes Hypertension Dyslipidemia Recommendation: Continue ventilatory support, continue to keep patient off propofol for now and assess mental status on a daily basis Continue heparin Continue aspirin Considering the patient multiple subacute infarcts on CT of the brain may have to consider BRIAN at a later stage. Continue bronchodilators and steroids Continue GI DVT prophylaxis Continue Zosyn empirically chest x-ray is suggestive of possible aspiration pneumonia Continue IV fluid and nutritional support Patient is critically ill Critical care time is over 30 minutes Will continue to follow, once the patient becomes a bit more appropriate we could consider weaning trials not ready for weaning at this point because of her neurological status Time with Patient: Greater than 30
--- NOTE | 2024-03-19 16:23 | P.PN ---
Subjective Progress Note Date: 03/19/24 I am following up with the patient and according to the nurse the sedation has been held for 24 hours. Nurse does not notice any significant improvement. Objective - Vital Signs Vital signs: Vital Signs Temp 98.8 F 03/19/24 12:00 Pulse 76 03/19/24 15:52 Resp 21 03/19/24 13:30 BP 105/62 03/19/24 13:30 Pulse Ox 100 03/19/24 11:00 FiO2 35 03/19/24 15:29 Intake & Output 03/18/24 03/19/24 03/19/24 18:59 06:59 18:59 Intake Total 2282.627 7254 700 Output Total 950 770 450 Balance 783.141 0138 250 Weight 70.5 kg 70.5 kg Intake: IV 1000 1325 450 Calcium Gluconate in NaCl 100 2 gm In Saline 1 100ml. bag @ 100 mls/hr IVPB ONCE ONE Rx#:[id number] Piperacillin-Tazobactam 3 100 200 .375 gm In Sodium Chloride 0.9% 100 ml @ 25 mls/hr IVPB Q8H [facility] Rx#: [id number] Potassium Chloride 20 meq 50 In Water For Injection 1 100ml.bag @ 50 mls/hr IVPB Q2H [facility] Rx#: [id number] Sodium Chloride 0.9% 1, 900 975 450 000 ml @ 75 mls/hr IV . [id number] [facility] Rx#:[id number] Intake, IV Titration 27.265 250 Amount Heparin Sod,Pork in 0.45% 250 NaCl 25,000 unit In 0.45 % NaCl 1 250ml.bag @ 18 UNITS/KG/HR 11.538 mls/hr IV .[id number] [facility] Rx#: [id number] propofoL 1,000 mg In 27.265 Empty Bag 1 bag @ 15 MCG/ KG/MIN 5.985 mls/hr IV . [id number] [facility] Rx#:[id number] Tube Feeding 360 455 250 Other 180 Output: Urine 950 770 450 Other: Voiding Method Indwelling Catheter Indwelling Catheter Indwelling Catheter ABP, PAP, CO, CI - Last Documented Arterial Blood Pressure 111/48 - Exam General: Lying in bed and does not appear in acute distress. Lung: Intubated on a ventilator. Neuro: Very limited. IV Propofol held for 24 hours. Patient is severely drowsy but is awake able intermittently to voice. She will spontaneously lift the left upper extremity above gravity. Otherwise she is not verbalizing or following commands. Mute. No facial weakness. - Labs CBC & Chem 7: 03/19/24 05:00 03/19/24 05:00 Labs: Abnormal Lab Results - Last 24 Hours (Table) 03/18/24 03/18/24 03/19/24 Range/Units 17:44 23:33 04:55 Hgb (11.4-16.0) gm/dL MCHC (31.0-37.0) g/dL Plt Count (150-450) k/uL Lymphocytes # (1.0-4.8) k/uL APTT (22.0-30.0) sec ABG pCO2 46 H (35-45) mmHg ABG HCO3 31 H (21-25) mmol/L ABG Total CO2 32 H (19-24) mmol/L ABG O2 Saturation 98.0 H (94-97) % Sodium (137-145) mmol/L Potassium (3.5-5.1) mmol/L Chloride (98-107) mmol/L BUN (7-17) mg/dL Creatinine (0.52-1.04) mg/dL Glucose (74-99) mg/dL POC Glucose (mg/dL) 245 H 204 H (70-110) mg/dL Calcium (8.4-10.2) mg/dL AST (14-36) U/L Alkaline Phosphatase (38-126) U/L Total Protein (6.3-8.2) g/dL Albumin (3.5-5.0) g/dL 03/19/24 03/19/24 03/19/24 Range/Units 05:00 05:00 05:00 Hgb 11.0 L (11.4-16.0) gm/dL MCHC 30.7 L (31.0-37.0) g/dL Plt Count 115 L (150-450) k/uL Lymphocytes # 0.2 L (1.0-4.8) k/uL APTT 46.5 H (22.0-30.0) sec ABG pCO2 (35-45) mmHg ABG HCO3 (21-25) mmol/L ABG Total CO2 (19-24) mmol/L ABG O2 Saturation (94-97) % Sodium 136 L (137-145) mmol/L Potassium 3.1 L (3.5-5.1) mmol/L Chloride 114 H (98-107) mmol/L BUN 27 H (7-17) mg/dL Creatinine 0.51 L (0.52-1.04) mg/dL Glucose 166 H (74-99) mg/dL POC Glucose (mg/dL) (70-110) mg/dL Calcium 5.7 L* (8.4-10.2) mg/dL AST 12 L (14-36) U/L Alkaline Phosphatase 27 L (38-126) U/L Total Protein 3.6 L (6.3-8.2) g/dL Albumin 1.6 L (3.5-5.0) g/dL 03/19/24 03/19/24 Range/Units 05:05 11:47 Hgb (11.4-16.0) gm/dL MCHC (31.0-37.0) g/dL Plt Count (150-450) k/uL Lymphocytes # (1.0-4.8) k/uL APTT (22.0-30.0) sec ABG pCO2 (35-45) mmHg ABG HCO3 (21-25) mmol/L ABG Total CO2 (19-24) mmol/L ABG O2 Saturation (94-97) % Sodium (137-145) mmol/L Potassium (3.5-5.1) mmol/L Chloride (98-107) mmol/L BUN (7-17) mg/dL Creatinine (0.52-1.04) mg/dL Glucose (74-99) mg/dL POC Glucose (mg/dL) 163 H 216 H (70-110) mg/dL Calcium (8.4-10.2) mg/dL AST (14-36) U/L Alkaline Phosphatase (38-126) U/L Total Protein (6.3-8.2) g/dL Albumin (3.5-5.0) g/dL Assessment and Plan Assessment: Ms. Ponce is a 73-year-old female with history of hypertension, COPD, and bilateral cataracts who was brought to the hospital on March 11 with some speech abnormalities and lethargy. She was noted on CT scan to have a right parietal as well as left precentral gyrus infarct. I personally reviewed it and felt over the left fronto/parietal region) Acute ischemic stroke (right parietal as well as left precentral gyrus infarct on CT per my colleague and per reading radiologist bilateral hemsiphere but I fe lt over the left fronto/parietal/occipital region and precentral region) and appears embolic (cardioembolic, especially with Atrial fibrillation) Respiratory distress and is intubated on ventilator Paroxysmal atrial fibrillation Severe pulmonary hypertension Hypertension Hyperlipidemia History of COPD Tobacco dependence Plan: I agree once the patient is extubated recommend MRI of the brain for further evaluation of the stroke. It seems the patient will require long-term anticoagulant for the management of embolic stroke in light of her atrial fibrillation and it seems that she is on heparin drip. Seems that she is exhibiting some degree of hematuria and will defer the management to the ICU. With my colleague heparin drip needs to be discontinued for short period of time she is receiving rectal aspirin which will cover her minimally for stroke protection. He is on aspirin 325 daily. Patient is on Lipitor 40 mg daily. Continue neurochecks Cardiac monitoring PT OT and DISBURSEMENT CLERK are consulted. Recommend sedation holiday at least 48 hours for better evaluation of n eurological examination. Currently patient has minimal improvement in her neurologic condition (opening eyes and lifting left upper extremity spontaneously and this is after 24 hours sedation holiday). For DVT prophylaxis the patient is on heparin drip Discussed with ICU nurse. Will continue to follow. Time with Patient: Less than 30
[2024-03-19 17:55] LABS: Glucose,Whole Blood 197 mg/dL (70-110)
[2024-03-19 23:59] LABS: Glucose,Whole Blood 227 mg/dL (70-110)
[2024-03-20 05:24] LABS: ABG Base Excess 5.9 mmol/L; ABG HCO3 31 mmol/L (21-25); ABG Oxygen Saturation 95.8 % (94-97); ABG PCO2 45 mmHg (35-45); ABG PH 7.44 (7.35-7.45); ABG PO2 76 mmHg (83-108); ABG TCO2 32 mmol/L (19-24)
[2024-03-20 05:39] LABS: Glucose,Whole Blood 170 mg/dL (70-110)
[2024-03-20 05:51] LABS: Basophils % (A) 0 %; Eosinophils % (A) 1 %; HCT 32.2 % (34.0-46.0); HGB 9.6 gm/dL (11.4-16.0); Hypochromasia Marked; Lymphocytes # (A) 0.1 k/uL (1.0-4.8); Lymphocytes % (A) 2 %; MCH 25.7 pg (25.0-35.0); MCHC 29.8 g/dL (31.0-37.0); Monocytes # (A) 0.3 k/uL (0-1.0); Monocytes % (A) 5 %; Neutrophils # (A) 6.1 k/uL (1.3-7.7); Neutrophils % (A) 91 %; Platelet Count 102 k/uL (150-450); RBC 3.75 m/uL (3.80-5.40); RDW 15.5 % (11.5-15.5); WBC 6.7 k/uL (3.8-10.6)
[2024-03-20 06:07] LABS: ALT 12 U/L (4-34); AST 12 U/L (14-36); African American GFR (CKD) >90 (>60 ml/min/1.73 sqM); Albumin 2.2 g/dL (3.5-5.0); Alkaline Phosphatase 30 U/L (38-126); Anion Gap -1 mmol/L; Blood Urea Nitrogen 34 mg/dL (7-17); Calcium 7.2 mg/dL (8.4-10.2); Carbon Dioxide 27 mmol/L (22-30); Chloride 109 mmol/L (98-107); Glucose 243 mg/dL (74-99); Non-African American GFR(CKD) >90 (>60 ml/min/1.73 sqM); Potassium 4.1 mmol/L (3.5-5.1); Sodium 135 mmol/L (137-145); Total Bilirubin 1.1 mg/dL (0.2-1.3); Total Protein 4.4 g/dL (6.3-8.2)
--- NOTE | 2024-03-20 09:18 | P.PN ---
Subjective Progress Note Date: 03/19/24 Principal diagnosis: Reason for follow-up is pneumonia Patient is a 73-year-old female with a past medical history significant for COPD hypertension hyperlipidemia patient was brought into the hospital for evaluation of mental status changes and was being worked up for stroke did have worsening of respiratory status concerning for aspiration prompted this consultation. Patient did have worsening of her respiratory status got intubated on 03/16/2024 On today's evaluation that is 03/19/2024,the patient continues to be afebrile and the patient has been on the ventilator patient FiO2 is currently stable at 35% no significant purulent secretion from the ET diarrhea any changes reported by nursing staff. The patient white count 7.0 creatinine is 0.51 sputum culture have been negative so far Objective - Vital Signs Vital signs: Vital Signs Temp 98.8 F 03/19/24 08:00 Pulse 80 03/19/24 11:57 Resp 18 03/19/24 11:00 BP 114/65 03/19/24 11:00 Pulse Ox 100 03/19/24 11:00 FiO2 35 03/19/24 11:38 Intake & Output 03/18/24 03/19/24 03/19/24 18:59 06:59 18:59 Intake Total 5586.300 8193 460 Output Total 950 770 325 Balance 382.154 7973 135 Weight 70.5 kg 70.5 kg Intake: IV 1000 1325 300 Calcium Gluconate in NaCl 100 2 gm In Saline 1 100ml. bag @ 100 mls/hr IVPB ONCE ONE Rx#:[id number] Piperacillin-Tazobactam 3 100 200 .375 gm In Sodium Chloride 0.9% 100 ml @ 25 mls/hr IVPB Q8H [facility] Rx#: [id number] Potassium Chloride 20 meq 50 In Water For Injection 1 100ml.bag @ 50 mls/hr IVPB Q2H [facility] Rx#: [id number] Sodium Chloride 0.9% 1, 900 975 300 000 ml @ 75 mls/hr IV . [id number] [facility] Rx#:[id number] Intake, IV Titration 27.265 250 Amount Heparin Sod,Pork in 0.45% 250 NaCl 25,000 unit In 0.45 % NaCl 1 250ml.bag @ 18 UNITS/KG/HR 11.538 mls/hr IV .[id number] [facility] Rx#: [id number] propofoL 1,000 mg In 27.265 Empty Bag 1 bag @ 15 MCG/ KG/MIN 5.985 mls/hr IV . [id number] [facility] Rx#:[id number] Tube Feeding 360 455 160 Other 180 Output: Urine 950 770 325 Other: Voiding Method Indwelling Catheter Indwelling Catheter Indwelling Catheter ABP, PAP, CO, CI - Last Documented Arterial Blood Pressure 125/57 - Exam GENERAL DESCRIPTION: An elderly female intubated on the vent RESPIRATORY SYSTEM: Unlabored breathing , decreased breath sounds at bases HEART: S1 S2 regular rate and rhythm , ABDOMEN: Soft , no tenderness EXTREMITIES: No edema feet - Labs CBC & Chem 7: 03/20/24 05:38 03/20/24 05:38 Labs: Abnormal Lab Results - Last 24 Hours (Table) 03/18/24 03/18/24 03/19/24 Range/Units 17:44 23:33 04:55 Hgb (11.4-16.0) gm/dL MCHC (31.0-37.0) g/dL Plt Count (150-450) k/uL Lymphocytes # (1.0-4.8) k/uL APTT (22.0-30.0) sec ABG pCO2 46 H (35-45) mmHg ABG HCO3 31 H (21-25) mmol/L ABG Total CO2 32 H (19-24) mmol/L ABG O2 Saturation 98.0 H (94-97) % Sodium (137-145) mmol/L Potassium (3.5-5.1) mmol/L Chloride (98-107) mmol/L BUN (7-17) mg/dL Creatinine (0.52-1.04) mg/dL Glucose (74-99) mg/dL POC Glucose (mg/dL) 245 H 204 H (70-110) mg/dL Calcium (8.4-10.2) mg/dL AST (14-36) U/L Alkaline Phosphatase (38-126) U/L Total Protein (6.3-8.2) g/dL Albumin (3.5-5.0) g/dL 03/19/24 03/19/24 03/19/24 Range/Units 05:00 05:00 05:00 Hgb 11.0 L (11.4-16.0) gm/dL MCHC 30.7 L (31.0-37.0) g/dL Plt Count 115 L (150-450) k/uL Lymphocytes # 0.2 L (1.0-4.8) k/uL APTT 46.5 H (22.0-30.0) sec ABG pCO2 (35-45) mmHg ABG HCO3 (21-25) mmol/L ABG Total CO2 (19-24) mmol/L ABG O2 Saturation (94-97) % Sodium 136 L (137-145) mmol/L Potassium 3.1 L (3.5-5.1) mmol/L Chloride 114 H (98-107) mmol/L BUN 27 H (7-17) mg/dL Creatinine 0.51 L (0.52-1.04) mg/dL Glucose 166 H (74-99) mg/dL POC Glucose (mg/dL) (70-110) mg/dL Calcium 5.7 L* (8.4-10.2) mg/dL AST 12 L (14-36) U/L Alkaline Phosphatase 27 L (38-126) U/L Total Protein 3.6 L (6.3-8.2) g/dL Albumin 1.6 L (3.5-5.0) g/dL 03/19/24 03/19/24 Range/Units 05:05 11:47 Hgb (11.4-16.0) gm/dL MCHC (31.0-37.0) g/dL Plt Count (150-450) k/uL Lymphocytes # (1.0-4.8) k/uL APTT (22.0-30.0) sec ABG pCO2 (35-45) mmHg ABG HCO3 (21-25) mmol/L ABG Total CO2 (19-24) mmol/L ABG O2 Saturation (94-97) % Sodium (137-145) mmol/L Potassium (3.5-5.1) mmol/L Chloride (98-107) mmol/L BUN (7-17) mg/dL Creatinine (0.52-1.04) mg/dL Glucose (74-99) mg/dL POC Glucose (mg/dL) 163 H 216 H (70-110) mg/dL Calcium (8.4-10.2) mg/dL AST (14-36) U/L Alkaline Phosphatase (38-126) U/L Total Protein (6.3-8.2) g/dL Albumin (3.5-5.0) g/dL Assessment and Plan (1) Aspiration pneumonia Current Visit: Yes Status: Acute Code(s): J69.0 - PNEUMONITIS DUE TO INHALATION OF FOOD AND VOMIT SNOMED Code(s): 468888944 Plan: 1patient with worsening respiratory status and this patient initially brought into the hospital with slurred speech and being worked up for a CVA with worsening of respiratory status requiring BiPAP and a question of possible aspiration. 2patient did have CT angiogram of the chest shows consolidation concerning for pneumonia possible aspiration repeat CT of the brain concerning for subacute infarct with some progression neurology is following the patient 3patient did have worsening of respiratory status requiring intubation sputum culture has been obtained which are so far negative 4patient is afebrile white count normal, 5- patient is currently being treated with Zosyn while waiting for condition to stabilize Dictation was produced using [employer] dictation software. please excuse any grammatical, word or spelling errors.
--- NOTE | 2024-03-20 09:21 | XR ---
EXAMINATION TYPE: XR chest 1V portable DATE OF EXAM: 03/20/2024 5:59 AM COMPARISON: 03/19/2024 CLINICAL INDICATION: Female, 73 years old with history of mechanical ventilation, , FINDINGS: Heart upper limits of normal in size. Hyperinflation. Diffuse interstitial and patchy opacities persi st with slight interval worsening. Satisfactory ET and NG tubes. Left CVC tip at the lower SVC. IMPRESSION: COPD with slight worsening in the diffuse interstitial and patchy opacities. [facility], , 03/20/2024 9:18 AM
[2024-03-20 11:34] LABS: Glucose,Whole Blood 241 mg/dL (70-110)
[2024-03-20 12:37] LABS: Glucose,Whole Blood 229 mg/dL (70-110)
--- NOTE | 2024-03-20 12:38 | P.PN ---
Subjective Progress Note Date: 03/20/24 Mirtha Ponce is a 73-year-old female patient who initially presented to her PCP with complaints of slurring of speech patient was directed to come to ER for further evaluation. At this time patient is in bed sleeping not following commands or answering questions. Family at bedside history obtained through them and medical records. According to family patient was found to be having slurred speech patient did not want to come to ER at that time so was taken to PCP. Per family patient is a heavy smoker but denies any alcohol or drug use. Denies any recent illness. Additional medical history includes COPD, hypertension. Head CT completed showing right parietal lobe acute/subacute CVA. EKG completed showing sinus rhythm. Chest x-ray completed showing cardiomegaly with pulmonary vascular congestion correlate with serum BNP COPD changes. Lab work revealing troponin 0.379, 0.429 and 0.436, white blood cell 5.7, hemoglobin 15.4 creatinine 0.56 bun 14. At this time neurology services have been consulted MRI of the brain has been ordered CTA of the carotids ordered. Will order 2D echo and consult cardiology services. Due to patient's increasing altered mental status changes and concerns for respiratory status we will consult pulmonary services. Patient's BNP also elevated at 6490 will give 1 dose of IV Lasix. Current vital signs temp 97.9, heart rate 96, respiratory rate 18, blood pressure 100/59 with a pulse ox of 95% on nonrebreather. On 03/13/2024 patient was seen and examined on the medical floor she is alert and oriented x 3 in no apparent distress, she has a low-grade fever of 99.4 pulse 108 respiration 22 blood pressure 123/61 pulse ox 91% on 6 L nasal cannula, she has cough, with minimal sputum production she denies any chest pain or shortness of breath no nausea or vomiting no abdominal pain no diarrhea and no urinary symptoms. At this time will keep patient n.p.o. for possible aspiration, will start IV Zosyn and repeat chest x-ray, infectious disease con sultation was added, will continue with IV heparin due to elevated troponin levels, awaiting cardiology input. Neurology consult reviewed. On 03/14/2024 patient remains lethargic in the intensive care unit. Patient was placed on BiPAP. Patient also started on IV Zosyn for concerns of aspiration pneumonia patient not following commands at this time recommendations for possible Dobbhoff placement in order to administer oral medications. Neurology services are following MRI has been ordered but cannot be performed while patient is on BiPAP and heparin. Critical care services following infectious disease, cardiology and neurology services following. Current vital signs temp 98.1, heart rate 96, respiratory rate 27, blood pressure 119/69 with a pulse ox of 96% on BiPAP with an FiO2 of 45%. Family at bedside all questions answered On 03/15/2024 patient was seen and examined in the intensive care unit, she is not responsive at this time she is maintained on BiPAP, vital examination r eveals a temperature of 97.9 pulse 89 respiration 24 blood pressure 110/62 pulse ox 99% on FiO2 45% White blood count is 8.7 hemoglobin 13.8 platelet count 249 arterial blood gas revealed a pH of 7.24 pCO2 95% PaO2 96%, BUN 43 creatinine 0.69. Patient is followed by neurology, infectious disease, cardiology and pulmonary critical care, she remains on IV heparin. CT scan of the brain, was repeated yesterday and reveals multiple subacute infarcts no acute bleed or mass effect, chest x-r ay done this morning reveals diffuse interstitial infiltrates. Prognosis is guarded. On 03/16/2024 patient remains in the intensive care unit ABGs continued to decline despite BiPAP. Plans for intubation today per critical care.. Family at bedside. Plan discussed with family and nursing staff. Patient remains on IV Zosyn and IV Cardizem. Prognosis remains guarded. Neurology, infectious disease, cardiology and critical care services are all following. On 03/17/2024 patient was seen and examined in the intensive care unit, she is intubated sedated maintained on mechanical ventilation, assist control rate of 20 FiO2 40% with a PEEP of 5, she is maintained on IV antibiotic Zosyn and IV Solu-Medrol 60 mg every 6 hours. White blood count is 7.7 hemoglobin 13.5 platelet count 169 BUN 40 creatinine 0.83, patient is still maintained on IV heparin. Will continue to follow closely On 03/18/2024 patient remains in the intensive care unit intubated and sedated on mechanical ventilation with an FiO2 of 40%. Patient remains on IV antibiotics Zosyn. Patient remains on IV heparin drip. WBC 8.7, hemoglobin 13.9 creatinine 0.61 bun 33 multiple consults following On 03/19/2024 patient remains in the intensive care unit. Sedation has been stopped per critical care will assess mentation. Current vital signs temp 98.2, heart rate 75, respiratory rate 20, blood pressure 117/66 with pulse ox of 96% on mechanical ventilation with an FiO2 of 35%. White blood cell 7.0 hemoglobin 11.0 creatinine 0.51 bun 27 potassium low at 3.1 this to be replaced per protocol. Multiple consults following On 03/20/2024 patient remains in the intensive care unit. On mechanical ventilation. Sedation remains off. Chest x-ray completed showing COPD with slight worsening in the diffuse interstitial and patchy opacitiesThat has been increasing over the past few days 4. History of coronary artery disease. Current vital signs temp 98.2, heart rate 80, respiratory rate 19, blood pressure 121/68 with a pulse ox of 95% on mechanical ventilation with an FiO2 of 35% Objective - Vital Signs Vital signs: Vital Signs Temp 99.5 F 03/20/24 08:00 Pulse 80 03/20/24 11:00 Resp 19 03/20/24 11:00 BP 121/68 03/20/24 11:00 Pulse Ox 95 03/20/24 11:00 FiO2 35 03/20/24 11:22 Intake & Output 03/19/24 03/20/24 03/20/24 18:59 06:59 18:59 Intake Total 1100 1797.391 300 Output Total 750 870 250 Balance 350 927.391 50 Weight 70.5 kg 72.4 kg Intake: IV 625 975 300 Piperacillin-Tazobactam 3 100 .375 gm In Sodium Chloride 0.9% 100 ml @ 25 mls/hr IVPB Q8H [facility] Rx#: [id number] Sodium Chloride 0.9% 1, 525 975 300 000 ml @ 75 mls/hr IV . [id number] [facility] Rx#:[id number] Intake, IV Titration 579.391 Amount Heparin Sod,Pork in 0.45% 279.391 NaCl 25,000 unit In 0.45 % NaCl 1 250ml.bag @ 18 UNITS/KG/HR 11.538 mls/hr IV .[id number] [facility] Rx#: [id number] Piperacillin-Tazobactam 3 300 .375 gm In Sodium Chloride 0.9% 100 ml @ 25 mls/hr IVPB Q8H [facility] Rx#: [id number] Tube Feeding 475 243 Output: Urine 750 870 250 Other: Voiding Method Indwelling Catheter Indwelling Catheter Indwelling Catheter ABP, PAP, CO, CI - Last Documented Arterial Blood Pressure 119/52 - Exam Head normocephalic Neck supple Lungs clear to auscultation bilaterally no wheezing or crackles Heart regular rate and rhythm S1-S2, no rub or gallop Abdomen is soft nontender nondistended positive bowel sounds no hepatosplenomegaly Extremities no edema Neuro patient is unresponsive - Labs CBC & Chem 7: 03/20/24 05:38 03/20/24 05:38 Labs: Abnormal Lab Results - Last 24 Hours (Table) 03/19/24 03/19/24 03/20/24 Range/Units 17:53 23:58 05:19 RBC (3.80-5.40) m/uL Hgb (11.4-16.0) gm/dL Hct (34.0-46.0) % MCHC (31.0-37.0) g/dL Plt Count (150-450) k/uL Lymphocytes # (1.0-4.8) k/uL APTT (22.0-30.0) sec ABG pO2 76 L (83-108) mmHg ABG HCO3 31 H (21-25) mmol/L ABG Total CO2 32 H (19-24) mmol/L Sodium (137-145) mmol/L Chloride (98-107) mmol/L BUN (7-17) mg/dL Glucose (74-99) mg/dL POC Glucose (mg/dL) 197 H 227 H (70-110) mg/dL Calcium (8.4-10.2) mg/dL AST (14-36) U/L Alkaline Phosphatase (38-126) U/L Total Protein (6.3-8.2) g/dL Albumin (3.5-5.0) g/dL 03/20/24 03/20/24 03/20/24 Range/Units 05:37 05:38 05:38 RBC 3.75 L (3.80-5.40) m/uL Hgb 9.6 L (11.4-16.0) gm/dL Hct 32.2 L (34.0-46.0) % MCHC 29.8 L (31.0-37.0) g/dL Plt Count 102 L (150-450) k/uL Lymphocytes # 0.1 L (1.0-4.8) k/uL APTT (22.0-30.0) sec ABG pO2 (83-108) mmHg ABG HCO3 (21-25) mmol/L ABG Total CO2 (19-24) mmol/L Sodium 135 L (137-145) mmol/L Chloride 109 H (98-107) mmol/L BUN 34 H (7-17) mg/dL Glucose 243 H (74-99) mg/dL POC Glucose (mg/dL) 170 H (70-110) mg/dL Calcium 7.2 L (8.4-10.2) mg/dL AST 12 L (14-36) U/L Alkaline Phosphatase 30 L (38-126) U/L Total Protein 4.4 L (6.3-8.2) g/dL Albumin 2.2 L (3.5-5.0) g/dL 03/20/24 03/20/24 Range/Units 05:38 11:33 RBC (3.80-5.40) m/uL Hgb (11.4-16.0) gm/dL Hct (34.0-46.0) % MCHC (31.0-37.0) g/dL Plt Count (150-450) k/uL Lymphocytes # (1.0-4.8) k/uL APTT 40.3 H (22.0-30.0) sec ABG pO2 (83-108) mmHg ABG HCO3 (21-25) mmol/L ABG Total CO2 (19-24) mmol/L Sodium (137-145) mmol/L Chloride (98-107) mmol/L BUN (7-17) mg/dL Glucose (74-99) mg/dL POC Glucose (mg/dL) 241 H (70-110) mg/dL Calcium (8.4-10.2) mg/dL AST (14-36) U/L Alkaline Phosphatase (38-126) U/L Total Protein (6.3-8.2) g/dL Albumin (3.5-5.0) g/dL Assessment and Plan Assessment: 1. Slurred speech and altered mental status changes likely secondary from CVA 2. Acute CHF exacerbation 3. Elevated troponins 4. Ongoing nicotine dependence greater than 1 pack/day 5. History of COPD 6. History of essential hypertension 7. Concerns of aspiration pneumonia patient started on IV Zosyn infectious disease service is consulted 8. Acute on chronic hypoxic and hypercapnic respiratory failure requiring intubation and mechanical ventilation Neurology, cardiology and pulmonary services consulted 2D echo and MRI of the brain ordered Patient started on heparin drip Patient remains on IV Zosyn Patient currently on BiPAP Remains in the intensive care unit Repeat labs ordered PT and OT services consulted
--- NOTE | 2024-03-20 14:06 | P.PN ---
Subjective Progress Note Date: 03/20/24 Principal diagnosis: Reason for follow-up is pneumonia Patient is a 73-year-old female with a past medical history significant for COPD hypertension hyperlipidemia patient was brought into the hospital for evaluation of mental status changes and was being worked up for stroke did have worsening of respiratory status concerning for aspiration prompted this consultation. Patient did have worsening of her respiratory status got intubated on 03/16/2024 On today's evaluation that is 03/20/2024,the patient did have a low-grade fever of 99.5 F this morning patient remains to be intubated on the vent FiO2 is down to 35% patient is hemodynamically stable not requiring any pressor support and no other changes reported by the nursing staff. Patient white count 6.7, creatinine 0.53 sputum culture have been negative Objective - Vital Signs Vital signs: Vital Signs Temp 99.5 F 03/20/24 08:00 Pulse 73 03/20/24 12:58 Resp 19 03/20/24 11:00 BP 121/68 03/20/24 11:00 Pulse Ox 95 03/20/24 11:00 FiO2 35 03/20/24 11:22 Intake & Output 03/19/24 03/20/24 03/20/24 18:59 06:59 18:59 Intake Total 1100 1797.391 300 Output Total 750 870 250 Balance 350 927.391 50 Weight 70.5 kg 72.4 kg Intake: IV 625 975 300 Piperacillin-Tazobactam 3 100 .375 gm In Sodium Chloride 0.9% 100 ml @ 25 mls/hr IVPB Q8H [facility] Rx#: [id number] Sodium Chloride 0.9% 1, 525 975 300 000 ml @ 75 mls/hr IV . [id number] [facility] Rx#:[id number] Intake, IV Titration 579.391 Amount Heparin Sod,Pork in 0.45% 279.391 NaCl 25,000 unit In 0.45 % NaCl 1 250ml.bag @ 18 UNITS/KG/HR 11.538 mls/hr IV .[id number] [facility] Rx#: [id number] Piperacillin-Tazobactam 3 300 .375 gm In Sodium Chloride 0.9% 100 ml @ 25 mls/hr IVPB Q8H [facility] Rx#: [id number] Tube Feeding 475 243 Output: Urine 750 870 250 Other: Voiding Method Indwelling Catheter Indwelling Catheter Indwelling Catheter ABP, PAP, CO, CI - Last Documented Arterial Blood Pressure 119/52 - Exam GENERAL DESCRIPTION: An elderly female intubated on the vent RESPIRATORY SYSTEM: Unlabored breathing , decreased breath sounds at bases HEART: S1 S2 regular rate and rhythm , ABDOMEN: Soft , no tenderness EXTREMITIES: No edema feet - Labs CBC & Chem 7: 03/20/24 05:38 03/20/24 05:38 Labs: Abnormal Lab Results - Last 24 Hours (Table) 03/19/24 03/19/24 03/20/24 Range/Units 17:53 23:58 05:19 RBC (3.80-5.40) m/uL Hgb (11.4-16.0) gm/dL Hct (34.0-46.0) % MCHC (31.0-37.0) g/dL Plt Count (150-450) k/uL Lymphocytes # (1.0-4.8) k/uL APTT (22.0-30.0) sec ABG pO2 76 L (83-108) mmHg ABG HCO3 31 H (21-25) mmol/L ABG Total CO2 32 H (19-24) mmol/L Sodium (137-145) mmol/L Chloride (98-107) mmol/L BUN (7-17) mg/dL Glucose (74-99) mg/dL POC Glucose (mg/dL) 197 H 227 H (70-110) mg/dL Calcium (8.4-10.2) mg/dL AST (14-36) U/L Alkaline Phosphatase (38-126) U/L Total Protein (6.3-8.2) g/dL Albumin (3.5-5.0) g/dL 03/20/24 03/20/24 03/20/24 Range/Units 05:37 05:38 05:38 RBC 3.75 L (3.80-5.40) m/uL Hgb 9.6 L (11.4-16.0) gm/dL Hct 32.2 L (34.0-46.0) % MCHC 29.8 L (31.0-37.0) g/dL Plt Count 102 L (150-450) k/uL Lymphocytes # 0.1 L (1.0-4.8) k/uL APTT (22.0-30.0) sec ABG pO2 (83-108) mmHg ABG HCO3 (21-25) mmol/L ABG Total CO2 (19-24) mmol/L Sodium 135 L (137-145) mmol/L Chloride 109 H (98-107) mmol/L BUN 34 H (7-17) mg/dL Glucose 243 H (74-99) mg/dL POC Glucose (mg/dL) 170 H (70-110) mg/dL Calcium 7.2 L (8.4-10.2) mg/dL AST 12 L (14-36) U/L Alkaline Phosphatase 30 L (38-126) U/L Total Protein 4.4 L (6.3-8.2) g/dL Albumin 2.2 L (3.5-5.0) g/dL 03/20/24 03/20/24 03/20/24 Range/Units 05:38 11:33 12:35 RBC (3.80-5.40) m/uL Hgb (11.4-16.0) gm/dL Hct (34.0-46.0) % MCHC (31.0-37.0) g/dL Plt Count (150-450) k/uL Lymphocytes # (1.0-4.8) k/uL APTT 40.3 H (22.0-30.0) sec ABG pO2 (83-108) mmHg ABG HCO3 (21-25) mmol/L ABG Total CO2 (19-24) mmol/L Sodium (137-145) mmol/L Chloride (98-107) mmol/L BUN (7-17) mg/dL Glucose (74-99) mg/dL POC Glucose (mg/dL) 241 H 229 H (70-110) mg/dL Calcium (8.4-10.2) mg/dL AST (14-36) U/L Alkaline Phosphatase (38-126) U/L Total Protein (6.3-8.2) g/dL Albumin (3.5-5.0) g/dL Assessment and Plan (1) Aspiration pneumonia Current Visit: Yes Status: Acute Code(s): J69.0 - PNEUMONITIS DUE TO INHALATION OF FOOD AND VOMIT SNOMED Code(s): 401981384 Plan: 1patient with worsening respiratory status and this patient initially brought into the hospital with slurred speech and being worked up for a CVA with worsening of respiratory status requiring BiPAP and a question of possible aspiration. 2patient did have CT angiogram of the chest shows consolidation concerning for pneumonia possible aspiration repeat CT of the brain concerning for subacute infarct with some progression neurology is following the patient 3patient did have worsening of respiratory status requiring intubation sputum culture has been obtained which are so far negative 4patient is afebrile white count normal, will treat with Zosyn and monitor clinical course closely Family at the bedside question and concerns were answered Dictation was produced using [employer] dictation software. please excuse any grammatical, word or spelling errors. Time with Patient: Less than 30
--- NOTE | 2024-03-20 14:09 | P.PN ---
Subjective Progress Note Date: 03/20/24 Principal diagnosis: Acute CVA This is a 73-year-old female patient, a chronic smoker smokes around 1.5 packs of cigarettes on a daily basis, known to have COPD, nevertheless, does not utilize any form of respiratory medications or inhalers on outpatient basis. Denies having any home O2. Most of the information was obtained from the son at the bedside who also happens to be a poor historian. The patient came into the hospital because of slurred speech and she was not following commands and she was altered. The patient had no fever. No headaches. No neck stiffness. CAT scan of the head showed a right parietal lobe acute/subacute infarcts. She was in normal sinus rhythm. At the same time, the patient was found to have elevated troponins of 0.3, 0.4 and 0.4 respectively x 3. The white cell count was at 5.7 with a hemoglobin 15.4 and the patient had a normal creatinine of 0.56 with a BUN of 14. Neurology was involved in her case and the patient was given a CTA of the brain that showed no evidence of any dissection of the cervical and the vertebral arteries and there was no evidence of any significant stenosis in the carotids or in the intracranial arteries. There was however an area of atelectasis in the left upper lobe and this is based on the partial visualization of the lung windows done on the CAT scan of the head and neck. The patient is quite hypoxic and she is currently on 5 L of oxygen by nasal cannula with pulse ox 92%. Based on those findings, pulmonary consultation was requested. Her proBNP level is 6490. She is currently on IV heparin based on elevated troponins. She is also on aspirin. Cardiology is also on the case. Echocardiogram was done and the patient was found to have a normal LV function, severe RV dilatation and evidence of severe pulmonary hypertension. On 03/16/2024, the patient remains quite unresponsive. Remains on BiPAP. Barely responsive to painful stimulation. Mental status is significantly diminished. She remains on a BiPAP pressure of 12/5 with an FiO2 of 40%. Generated tidal volumes noted of 200 cc. The blood gas from today showed a pH of 7.14 with a pCO2 of above 98 and pO2 of 101. Based on that, I do lengthy discussion with the family and recommended intubation mechanical ventilation while the patient's stroke evolves further. The chest x-ray from today shows COPD with diffuse inc reased interstitial infiltrates bilaterally. This could be fluid versus interstitial pneumonia and the patient remains on IV Zosyn. The patient's cardiac rhythm is sinus. No further episodes of atrial fibrillation has been noted and the patient remains on IV heparin. IV fluids are in the form of normal saline at rate of 75 cc an hour. She remains on bronchodilators. She remains on systemic steroids. A follow-up CAT scan of the brain was done yesterday and it showed evidence of subacute multiple infarcts and there was no evidence of any bleeding. Based on all this, the patient was intubated and currently is on assist-control mode of mechanical ventilation at rate of 24, tidal volume of 400 with a PEEP of 5 and FiO2 of 100%. Postintubation blood gas showed a pH of 7.29 with a pCO2 of 76 and pO2 of 374. FiO2 will be gradually weaned. Triple-lumen catheter and a arterial line was also inserted. Enteral feeding will be also initiated. She remains on aspirin. She remains on sta tins. Patient was seen today , patient was intubated yesterday, and she is now on mechanical ventilation. Patient developed worsening hypoxic and hypercapnic respiratory failure required intubation mechanical ventilation. Patient is now on assist-control rate of 20 tidal volume 400 FiO2 40% and PEEP of 5 ABG showed a pO2 of 93 pCO2 45 pH of 7.47 hence no changes were made in her present ventilator settings. Patient is on vital AF at 10 cc/h she is also on propofol at 50 mcg/kg/min, amiodarone 0.5 mg/min heparin drip IV fluid 0.9 normal saline at 75 cc/h Solu-Medrol 60 every 6 Zosyn empirically for possible aspiration. Patient had a presentation of 2 weeks history of headache and stuttering. She was found to have right parietal CVA. Patient was intubated on 03/16 remains intubated and sedated. Chest x-ray showed COPD with ongoing interstitial opacities throughout both lungs. And opacity noted in the left retrocardiac area suspicious for pneumonia with some opacity in the right base that seems to be improving WBC count today is 7.7 hemoglobin 13.5 basic metabolic profile is normal, BUN is 40 creatinine 0.83 Patient was seen today on 03/18/2024, remains in ICU, intubated and mechanically ventilated, on assist-control rate of 20 tidal volume 400 FiO2 40% and PEEP of 5 ABG showed a pO2 of 134 pCO2 44 pH of 7.44. Based on ABG I recommended cutting down her FiO2 to 35% and decreased today down to 18. Patient is on vital HP at 10/35 she is also on propofol at 20 mcg/kg/min, heparin drip IV fluid 0.9 normal saline at 75 cc/h patient is receiving Zosyn empirically. She had fluid balance +1 L over the last 24 hours. WBC count is 8.7 hemoglobin 13.9 platelets are 144. Electrolytes are normal renal profile is normal with BUN of 33 creatinine 0.61 blood sugar is 204 chest x-ray is showing nonspecific interstitial infiltrates and a patchy left retrocardiac opacity. Seen today on 03/19/2024, patient remains in the ICU, intubated and mechanically ventilated, on assist-control rate of 18 tidal volume 400 FiO2 35% and PEEP of 5 ABG showed a pO2 of 96 pCO2 46 pH of 7.43 patient was taken off propofol yesterday, remains on propofol, and does not seem to follow any instructions, she opens her eyes, withdraws to pain, moves her left upper extremity withdraws to pain mostly. Patient remains on heparin, IV fluid 0.9 at 75 cc/h vital HP at 35/35. Remains on Solu-Medrol and on Zosyn. Patient to remain off propofol today, and no plans to place her back on propofol for now. Would like to get further assessment of her mental status as she seems to be not responding purposefully to any stimuli except withdraws to pain. Patient opens her eyes but does not follow any instructions. WBC is 7.0 hemoglobin 11, basic metabolic profile noted, potassium is a bit low at 3.1 but renal profile is normal. Patient was evaluated today on 03/20/2024, remains in the ICU, intubated and mechanically ventilated. Patient has been off propofol now for 2 days, opening eyes, wiggling toes, squeezing hands, but still not fully awake. And it takes a lot of repetition of instructions to make the patient understand or comprehend what she is being told. Patient remains extremely slow, she is on assist- control rate of 18 tidal volume 400 FiO2 35% PEEP of 5 ABG showed a pO2 of 76 pCO2 45 pH of 7.44. Chest x-ray showed slight worsening of her interstitial opacities bilaterally. Patient is on Zosyn.WBC count is 6.7 hemoglobin 9.6. Basic metabolic profile is normal renal profile is normal. Sputum cultures are nondiagnostic showed mostly normal rubin Objective - Vital Signs Vital signs: Vital Signs Temp 99.5 F 03/20/24 08:00 Pulse 73 03/20/24 12:58 Resp 19 03/20/24 11:00 BP 121/68 03/20/24 11:00 Pulse Ox 95 03/20/24 11:00 FiO2 35 03/20/24 11:22 Intake & Output 03/19/24 03/20/24 03/20/24 18:59 06:59 18:59 Intake Total 1100 1797.391 300 Output Total 750 870 250 Balance 350 927.391 50 Weight 70.5 kg 72.4 kg Intake: IV 625 975 300 Piperacillin-Tazobactam 3 100 .375 gm In Sodium Chloride 0.9% 100 ml @ 25 mls/hr IVPB Q8H [facility] Rx#: [id number] Sodium Chloride 0.9% 1, 525 975 300 000 ml @ 75 mls/hr IV . [id number] [facility] Rx#:[id number] Intake, IV Titration 579.391 Amount Heparin Sod,Pork in 0.45% 279.391 NaCl 25,000 unit In 0.45 % NaCl 1 250ml.bag @ 18 UNITS/KG/HR 11.538 mls/hr IV .[id number] [facility] Rx#: [id number] Piperacillin-Tazobactam 3 300 .375 gm In Sodium Chloride 0.9% 100 ml @ 25 mls/hr IVPB Q8H [facility] Rx#: [id number] Tube Feeding 475 243 Output: Urine 750 870 250 Other: Voiding Method Indwelling Catheter Indwelling Catheter Indwelling Catheter ABP, PAP, CO, CI - Last Documented Arterial Blood Pressure 119/52 - Exam physical exam revealed a 73-year-old female intubated mechanically ventilated sedated in no distress Head exam is unremarkable. No scleral icterus or corneal arcus noted. Neck is without jugular venous distension, thyromegaly, or carotid bruits. Lungs symmetrical chest expansion slightly diminished breath sound at the bases no rhonchi no wheezes Cardiac exam distant S1-S2, no S3 gallop, no murmur. Abdominal exam reveals soft nontender no megaly no rebound no guarding Extremities no clubbing edema or cyanosis. Examination of the skin showed no specific rashes Neurologically, opens eyes follows simple instructions but remains extremely slow and difficult to comprehend instructions. Remains quite encephalopathic overall not improved compared to the last few days Psychiatric: Could not assess. - Labs CBC & Chem 7: 03/20/24 05:38 03/20/24 05:38 Labs: Abnormal Lab Results - Last 24 Hours (Table) 03/19/24 03/19/24 03/20/24 Range/Units 17:53 23:58 05:19 RBC (3.80-5.40) m/uL Hgb (11.4-16.0) gm/dL Hct (34.0-46.0) % MCHC (31.0-37.0) g/dL Plt Count (150-450) k/uL Lymphocytes # (1.0-4.8) k/uL APTT (22.0-30.0) sec ABG pO2 76 L (83-108) mmHg ABG HCO3 31 H (21-25) mmol/L ABG Total CO2 32 H (19-24) mmol/L Sodium (137-145) mmol/L Chloride (98-107) mmol/L BUN (7-17) mg/dL Glucose (74-99) mg/dL POC Glucose (mg/dL) 197 H 227 H (70-110) mg/dL Calcium (8.4-10.2) mg/dL AST (14-36) U/L Alkaline Phosphatase (38-126) U/L Total Protein (6.3-8.2) g/dL Albumin (3.5-5.0) g/dL 03/20/24 03/20/24 03/20/24 Range/Units 05:37 05:38 05:38 RBC 3.75 L (3.80-5.40) m/uL Hgb 9.6 L (11.4-16.0) gm/dL Hct 32.2 L (34.0-46.0) % MCHC 29.8 L (31.0-37.0) g/dL Plt Count 102 L (150-450) k/uL Lymphocytes # 0.1 L (1.0-4.8) k/uL APTT (22.0-30.0) sec ABG pO2 (83-108) mmHg ABG HCO3 (21-25) mmol/L ABG Total CO2 (19-24) mmol/L Sodium 135 L (137-145) mmol/L Chloride 109 H (98-107) mmol/L BUN 34 H (7-17) mg/dL Glucose 243 H (74-99) mg/dL POC Glucose (mg/dL) 170 H (70-110) mg/dL Calcium 7.2 L (8.4-10.2) mg/dL AST 12 L (14-36) U/L Alkaline Phosphatase 30 L (38-126) U/L Total Protein 4.4 L (6.3-8.2) g/dL Albumin 2.2 L (3.5-5.0) g/dL 03/20/24 03/20/24 03/20/24 Range/Units 05:38 11:33 12:35 RBC (3.80-5.40) m/uL Hgb (11.4-16.0) gm/dL Hct (34.0-46.0) % MCHC (31.0-37.0) g/dL Plt Count (150-450) k/uL Lymphocytes # (1.0-4.8) k/uL APTT 40.3 H (22.0-30.0) sec ABG pO2 (83-108) mmHg ABG HCO3 (21-25) mmol/L ABG Total CO2 (19-24) mmol/L Sodium (137-145) mmol/L Chloride (98-107) mmol/L BUN (7-17) mg/dL Glucose (74-99) mg/dL POC Glucose (mg/dL) 241 H 229 H (70-110) mg/dL Calcium (8.4-10.2) mg/dL AST (14-36) U/L Alkaline Phosphatase (38-126) U/L Total Protein (6.3-8.2) g/dL Albumin (3.5-5.0) g/dL Assessment and Plan Assessment: Impression: Acute CVA, involving right parietal lobe. Acute on chronic hypoxic and hypercapnic respiratory failure requiring intubation and mechanical ventilation, patient has underlying COPD History of COPD Paroxysmal atrial fibrillation Possible chronic hypoxic and hypercapnic respiratory failure Tobacco dependence syndrome, Severe pulmonary hypertension related to chronic obstructive lung disease and chronic hypoxia Abnormal troponins no evidence of acute ST segment changes Hypertension Dyslipidemia Recommendation: Continue ventilatory support, unable to wean considering her mental status Continue aspirin Considering the patient multiple subacute infarcts on CT of the brain may have to consider BRIAN at a later stage. Continue bronchodilators and antibiotics Continue GI DVT prophylaxis Continue IV fluid and nutritional support Will continue to keep propofol on hold for now Patient is critically ill Updated her son at bedside and her condition and explained to him that in the next 3 to 4 days, may have to consider tracheostomy unless she makes a dramatic neurological improvement Critical care time is over 30 minutes Time with Patient: Greater than 30
--- NOTE | 2024-03-20 17:12 | P.PN ---
Subjective Progress Note Date: 03/20/24 I am following up with the patient and according to the nurse the patient has been off of sedation for 4 very hours and she is having some improvement today compared to what is reported yesterday. Objective - Vital Signs Vital signs: Vital Signs Temp 99.5 F 03/20/24 08:00 Pulse 82 03/20/24 15:50 Resp 22 03/20/24 15:00 BP 109/57 03/20/24 15:00 Pulse Ox 95 03/20/24 15:00 FiO2 35 03/20/24 15:14 Intake & Output 03/19/24 03/20/24 03/20/24 18:59 06:59 18:59 Intake Total 1100 1797.391 624 Output Total 750 870 420 Balance 350 927.391 204 Weight 70.5 kg 72.4 kg Intake: IV 625 975 570 Piperacillin-Tazobactam 3 100 100 .375 gm In Sodium Chloride 0.9% 100 ml @ 25 mls/hr IVPB Q8H [facility] Rx#: [id number] Sodium Chloride 0.9% 1, 525 975 470 000 ml @ 75 mls/hr IV . [id number] [facility] Rx#:[id number] Intake, IV Titration 579.391 Amount Heparin Sod,Pork in 0.45% 279.391 NaCl 25,000 unit In 0.45 % NaCl 1 250ml.bag @ 18 UNITS/KG/HR 11.538 mls/hr IV .[id number] [facility] Rx#: [id number] Piperacillin-Tazobactam 3 300 .375 gm In Sodium Chloride 0.9% 100 ml @ 25 mls/hr IVPB Q8H [facility] Rx#: [id number] Tube Feeding 475 243 54 Output: Urine 750 870 420 Other: Voiding Method Indwelling Catheter Indwelling Catheter Indwelling Catheter ABP, PAP, CO, CI - Last Documented Arterial Blood Pressure 114/44 - Exam General: Lying in bed and does not appear in acute distress. Lung: Intubated on a ventilator. Neuro: Very limited. IV Propofol held for 48 hours. Patient is moderately drowsy but is awake able intermittently to voice. Patient is oriented to self. She is following very few simple commands. She is left in the left side above gravity. Right upper extremity is no movement is 0 out of 5. Right lower extremity she is wiggling her toes. - Labs CBC & Chem 7: 03/20/24 05:38 03/20/24 05:38 Labs: Abnormal Lab Results - Last 24 Hours (Table) 03/19/24 03/19/24 03/20/24 Range/Units 17:53 23:58 05:19 RBC (3.80-5.40) m/uL Hgb (11.4-16.0) gm/dL Hct (34.0-46.0) % MCHC (31.0-37.0) g/dL Plt Count (150-450) k/uL Lymphocytes # (1.0-4.8) k/uL APTT (22.0-30.0) sec ABG pO2 76 L (83-108) mmHg ABG HCO3 31 H (21-25) mmol/L ABG Total CO2 32 H (19-24) mmol/L Sodium (137-145) mmol/L Chloride (98-107) mmol/L BUN (7-17) mg/dL Glucose (74-99) mg/dL POC Glucose (mg/dL) 197 H 227 H (70-110) mg/dL Calcium (8.4-10.2) mg/dL AST (14-36) U/L Alkaline Phosphatase (38-126) U/L Total Protein (6.3-8.2) g/dL Albumin (3.5-5.0) g/dL 03/20/24 03/20/24 03/20/24 Range/Units 05:37 05:38 05:38 RBC 3.75 L (3.80-5.40) m/uL Hgb 9.6 L (11.4-16.0) gm/dL Hct 32.2 L (34.0-46.0) % MCHC 29.8 L (31.0-37.0) g/dL Plt Count 102 L (150-450) k/uL Lymphocytes # 0.1 L (1.0-4.8) k/uL APTT (22.0-30.0) sec ABG pO2 (83-108) mmHg ABG HCO3 (21-25) mmol/L ABG Total CO2 (19-24) mmol/L Sodium 135 L (137-145) mmol/L Chloride 109 H (98-107) mmol/L BUN 34 H (7-17) mg/dL Glucose 243 H (74-99) mg/dL POC Glucose (mg/dL) 170 H (70-110) mg/dL Calcium 7.2 L (8.4-10.2) mg/dL AST 12 L (14-36) U/L Alkaline Phosphatase 30 L (38-126) U/L Total Protein 4.4 L (6.3-8.2) g/dL Albumin 2.2 L (3.5-5.0) g/dL 03/20/24 03/20/24 03/20/24 Range/Units 05:38 11:33 12:35 RBC (3.80-5.40) m/uL Hgb (11.4-16.0) gm/dL Hct (34.0-46.0) % MCHC (31.0-37.0) g/dL Plt Count (150-450) k/uL Lymphocytes # (1.0-4.8) k/uL APTT 40.3 H (22.0-30.0) sec ABG pO2 (83-108) mmHg ABG HCO3 (21-25) mmol/L ABG Total CO2 (19-24) mmol/L Sodium (137-145) mmol/L Chloride (98-107) mmol/L BUN (7-17) mg/dL Glucose (74-99) mg/dL POC Glucose (mg/dL) 241 H 229 H (70-110) mg/dL Calcium (8.4-10.2) mg/dL AST (14-36) U/L Alkaline Phosphatase (38-126) U/L Total Protein (6.3-8.2) g/dL Albumin (3.5-5.0) g/dL 03/20/24 Range/Units 14:00 RBC (3.80-5.40) m/uL Hgb (11.4-16.0) gm/dL Hct (34.0-46.0) % MCHC (31.0-37.0) g/dL Plt Count (150-450) k/uL Lymphocytes # (1.0-4.8) k/uL APTT 72.8 H (22.0-30.0) sec ABG pO2 (83-108) mmHg ABG HCO3 (21-25) mmol/L ABG Total CO2 (19-24) mmol/L Sodium (137-145) mmol/L Chloride (98-107) mmol/L BUN (7-17) mg/dL Glucose (74-99) mg/dL POC Glucose (mg/dL) (70-110) mg/dL Calcium (8.4-10.2) mg/dL AST (14-36) U/L Alkaline Phosphatase (38-126) U/L Total Protein (6.3-8.2) g/dL Albumin (3.5-5.0) g/dL Assessment and Plan Assessment: Ms. Ponce is a 73-year-old female with history of hypertension, COPD, and bilateral cataracts who was brought to the hospital on March 11 with some speech abnormalities and lethargy. She was noted on CT scan to have a right parietal as well as left precentral gyrus infarct. I personally reviewed it and felt over the left fronto/parietal region) Acute ischemic stroke (right parietal as well as left precentral gyrus infarct on CT per my colleague and per reading radiologist bilateral hemsiphere but I felt over the left fronto/parietal/occipital region and precentral region) and appears embolic (cardioembolic, especially with Atrial fibrillation). On examination today after 48-hour off sedation she is moving the left side but no movement of the right upper extremity and wiggles the right toes. She continues to be drowsy but is awake able to voice. Respiratory distress and is intubated on ventilator Paroxysmal atrial fibrillation Severe pulmonary hypertension Hypertension Hyperlipidemia History of COPD Tobacco dependence Plan: I agree once the patient is extubated recommend MRI of the brain for further evaluation of the stroke. I will get a repeat CT of the head to assess if there is any change compared to the last CT of the head It seems the patient will require long-term anticoagulant for the management of embolic stroke in light of her atrial fibrillation and it seems that she is on heparin drip. Seems that she is exhibiting some degree of hematuria and will defer the management to the ICU. With my colleague heparin drip needs to be discontinued for short period of time she is receiving rectal aspirin which will cover her minimally for stroke protection. He is on aspirin 325 daily. Patient is on Lipitor 40 mg daily. Continue neurochecks Cardiac monitoring PT OT and AWNING SPREADER are consulted. For DVT prophylaxis the patient is on heparin drip Discussed with ICU nurse. Will continue to follow. Time with Patient: Less than 30
[2024-03-20 17:25] LABS: Glucose,Whole Blood 212 mg/dL (70-110)
--- NOTE | 2024-03-20 22:01 | PN ---
PROGRESS NOTE SUBJECTIVE: Mirtha is a 73-year-old lady, who remains intubated and underwent a CVA and remains on IV heparin for paroxysmal atrial fibrillation. CURRENT MEDICATIONS: 1. Amiodarone 200 b.i.d. 2. Norvasc 5 daily. 3. Lipitor. 4. Cozaar. 5. Lopressor. 6. IV heparin. OBJECTIVE: VITAL SIGNS: Heart rate is 80 beats per minute, blood pressure is 121/68, respiratory rate is 18, O2 saturation is 95%. CHEST: Reveals diminished air entry at the bases. HEART: Reveals first and second heart sounds. Has a systolic murmur at the apex. ABDOMEN: Soft. EXTREMITIES: Reveals mild edema. Peripheral pulses are felt. LABORATORY DATA: Lab show a hemoglobin of 9.6, potassium is 4.1, creatinine 0.5. ASSESSMENT: Vent requiring respiratory failure, cerebrovascular accident, paroxysmal atrial fibrillation. PLAN: I will continue her on her current medications. MMODL / IJN: [id number] /
[2024-03-20 23:56] LABS: Glucose,Whole Blood 237 mg/dL (70-110)
--- NOTE | 2024-03-21 05:24 | CT ---
EXAMINATION TYPE: CT brain wo con DATE OF EXAM: 03/20/2024 COMPARISON: Prior CT March 15, 2024 CLINICAL INDICATION: Female, 73 years old with history of stroke. right sided weakness; PHH, stroke. Right sided weakness TECHNIQUE: CT scan of the head is performed without contrast. CT DLP: 1168.[address] CTDI: 49 mGy Automated exposure control for dose reduction was used. FINDINGS: There is no acute intracranial hemorrhage or midline shift identified. There is mild to m oderate diffuse ventricular and sulcal prominence redemonstrated. There is mild low-attenuation in t he periventricular white matter again seen. Old infarcts posterior left frontal lobe axial image 37 a nd left inferior parietal lobe axial image 35 are redemonstrated. Bilateral aphakia redemonstrated. T he visualized sinuses are clear. IMPRESSION: No acute intracranial hemorrhage or midline shift. There is mild to moderate diffuse ce rebral atrophy and mild chronic small vessel ischemic change along with old left-sided infarcts redem onstrated. No significant change from most recent prior CT. If concern for acute stroke persist further investigation with MRI study may BE warranted. [facility], , 03/21/2024 5:22 AM
[2024-03-21 05:28] LABS: ABG Base Excess 5.6 mmol/L; ABG HCO3 31 mmol/L (21-25); ABG PCO2 45 mmHg (35-45); ABG PH 7.44 (7.35-7.45); ABG PO2 83 mmHg (83-108); ABG TCO2 32 mmol/L (19-24); Allen Test Performed? Yes
[2024-03-21 05:30] LABS: Glucose,Whole Blood 180 mg/dL (70-110)
[2024-03-21 05:56] LABS: Basophils % (A) 0 %; Eosinophils % (A) 0 %; HCT 32.3 % (34.0-46.0); Hypochromasia Marked; Lymphocytes # (A) 0.4 k/uL (1.0-4.8); Lymphocytes % (A) 4 %; MCH 26.6 pg (25.0-35.0); MCV 85.7 fL (80.0-100.0); Mean Platelet Volume 9.3; Monocytes # (A) 0.9 k/uL (0-1.0); Monocytes % (A) 8 %; Neutrophils # (A) 9.6 k/uL (1.3-7.7); Neutrophils % (A) 85 %; Platelet Count 117 k/uL (150-450); RBC 3.76 m/uL (3.80-5.40); RDW 15.5 % (11.5-15.5); WBC 11.3 k/uL (3.8-10.6)
[2024-03-21 06:23] LABS: ALT 14 U/L (4-34); AST 25 U/L (14-36); African American GFR (CKD) >90 (>60 ml/min/1.73 sqM); Albumin 2.2 g/dL (3.5-5.0); Alkaline Phosphatase 41 U/L (38-126); Anion Gap -4 mmol/L; Blood Urea Nitrogen 37 mg/dL (7-17); Calcium 7.5 mg/dL (8.4-10.2); Carbon Dioxide 30 mmol/L (22-30); Chloride 109 mmol/L (98-107); Glucose 209 mg/dL (74-99); Non-African American GFR(CKD) >90 (>60 ml/min/1.73 sqM); Potassium 3.8 mmol/L (3.5-5.1); Sodium 135 mmol/L (137-145); Total Bilirubin 0.8 mg/dL (0.2-1.3); Total Protein 4.4 g/dL (6.3-8.2)
[2024-03-21] MEDS: POTASSIUM CHLORIDE 20 MEQ in WATER FOR INJECTION 1 100ML.BAG IVPB STA (06:47)
--- NOTE | 2024-03-21 07:45 | XR ---
EXAMINATION TYPE: XR chest 1V portable DATE OF EXAM: 03/21/2024 5:26 AM COMPARISON: 03/20/2024 CLINICAL INDICATION: Female, 73 years old with history of mechanical ventilation, , FINDINGS: ET tube satisfactory. NG tube inadvertently pulled back. It could be advanced by 9 cm so that the melinda ehole enters the stomach. Heart borderline in size. Mild hyperinflation. Interstitial densities and p atchy retrocardiac opacities persist. IMPRESSION: 1. COPD with similar diffuse bilateral interstitial and patchy opacities. 2. NG tube inadvertently pulled back. Advance by 9 cm so that the sidehole enters the stomach. [facility], , 03/21/2024 7:43 AM
--- NOTE | 2024-03-21 10:14 | P.PN ---
Subjective Progress Note Date: 03/21/24 Mirtha Ponce is a 73-year-old female patient who initially presented to her PCP with complaints of slurring of speech patient was directed to come to ER for further evaluation. At this time patient is in bed sleeping not following commands or answering questions. Family at bedside history obtained through them and medical records. According to family patient was found to be having slurred speech patient did not want to come to ER at that time so was taken to PCP. Per family patient is a heavy smoker but denies any alcohol or drug use. Denies any recent illness. Additional medical history includes COPD, hypertension. Head CT completed showing right parietal lobe acute/subacute CVA. EKG completed showing sinus rhythm. Chest x-ray completed showing cardiomegaly with pulmonary vascular congestion correlate with serum BNP COPD changes. Lab work revealing troponin 0.379, 0.429 and 0.436, white blood cell 5.7, hemoglobin 15.4 creatinine 0.56 bun 14. At this time neurology services have been consulted MRI of the brain has been ordered CTA of the carotids ordered. Will order 2D echo and consult cardiology services. Due to patient's increasing altered mental status changes and concerns for respiratory status we will consult pulmonary services. Patient's BNP also elevated at 6490 will give 1 dose of IV Lasix. Current vital signs temp 97.9, heart rate 96, respiratory rate 18, blood pressure 100/59 with a pulse ox of 95% on nonrebreather. On 03/13/2024 patient was seen and examined on the medical floor she is alert and oriented x 3 in no apparent distress, she has a low-grade fever of 99.4 pulse 108 respiration 22 blood pressure 123/61 pulse ox 91% on 6 L nasal cannula, she has cough, with minimal sputum production she denies any chest pain or shortness of breath no nausea or vomiting no abdominal pain no diarrhea and no urinary symptoms. At this time will keep patient n.p.o. for possible aspiration, will start IV Zosyn and repeat chest x-ray, infectious disease con sultation was added, will continue with IV heparin due to elevated troponin levels, awaiting cardiology input. Neurology consult reviewed. On 03/14/2024 patient remains lethargic in the intensive care unit. Patient was placed on BiPAP. Patient also started on IV Zosyn for concerns of aspiration pneumonia patient not following commands at this time recommendations for possible Dobbhoff placement in order to administer oral medications. Neurology services are following MRI has been ordered but cannot be performed while patient is on BiPAP and heparin. Critical care services following infectious disease, cardiology and neurology services following. Current vital signs temp 98.1, heart rate 96, respiratory rate 27, blood pressure 119/69 with a pulse ox of 96% on BiPAP with an FiO2 of 45%. Family at bedside all questions answered On 03/15/2024 patient was seen and examined in the intensive care unit, she is not responsive at this time she is maintained on BiPAP, vital examination r eveals a temperature of 97.9 pulse 89 respiration 24 blood pressure 110/62 pulse ox 99% on FiO2 45% White blood count is 8.7 hemoglobin 13.8 platelet count 249 arterial blood gas revealed a pH of 7.24 pCO2 95% PaO2 96%, BUN 43 creatinine 0.69. Patient is followed by neurology, infectious disease, cardiology and pulmonary critical care, she remains on IV heparin. CT scan of the brain, was repeated yesterday and reveals multiple subacute infarcts no acute bleed or mass effect, chest x-r ay done this morning reveals diffuse interstitial infiltrates. Prognosis is guarded. On 03/16/2024 patient remains in the intensive care unit ABGs continued to decline despite BiPAP. Plans for intubation today per critical care.. Family at bedside. Plan discussed with family and nursing staff. Patient remains on IV Zosyn and IV Cardizem. Prognosis remains guarded. Neurology, infectious disease, cardiology and critical care services are all following. On 03/17/2024 patient was seen and examined in the intensive care unit, she is intubated sedated maintained on mechanical ventilation, assist control rate of 20 FiO2 40% with a PEEP of 5, she is maintained on IV antibiotic Zosyn and IV Solu-Medrol 60 mg every 6 hours. White blood count is 7.7 hemoglobin 13.5 platelet count 169 BUN 40 creatinine 0.83, patient is still maintained on IV heparin. Will continue to follow closely On 03/18/2024 patient remains in the intensive care unit intubated and sedated on mechanical ventilation with an FiO2 of 40%. Patient remains on IV antibiotics Zosyn. Patient remains on IV heparin drip. WBC 8.7, hemoglobin 13.9 creatinine 0.61 bun 33 multiple consults following On 03/19/2024 patient remains in the intensive care unit. Sedation has been stopped per critical care will assess mentation. Current vital signs temp 98.2, heart rate 75, respiratory rate 20, blood pressure 117/66 with pulse ox of 96% on mechanical ventilation with an FiO2 of 35%. White blood cell 7.0 hemoglobin 11.0 creatinine 0.51 bun 27 potassium low at 3.1 this to be replaced per protocol. Multiple consults following On 03/20/2024 patient remains in the intensive care unit. On mechanical ventilation. Sedation remains off. Chest x-ray completed showing COPD with slight worsening in the diffuse interstitial and patchy opacitiesThat has been increasing over the past few days 4. History of coronary artery disease. Current vital signs temp 98.2, heart rate 80, respiratory rate 19, blood pressure 121/68 with a pulse ox of 95% on mechanical ventilation with an FiO2 of 35% On 03/21/2024 patient remains in the intensive care unit today patient is awake following commands on mechanical ventilation sedation remains off. Per critical care will attempt extubation today. Patient had follow-up CT yesterday per neurology services anticipate patient will need MRI once extubated and stable. Current vital signs temp 98.9, heart rate 77, respiratory rate 19, blood pressure 100/57 on mechanical ventilation at FiO2 of 35% Objective - Vital Signs Vital signs: Vital Signs Temp 98.9 F 03/21/24 08:00 Pulse 75 03/21/24 09:37 Resp 23 03/21/24 09:00 BP 100/56 03/21/24 09:00 Pulse Ox 96 03/21/24 09:00 FiO2 35 03/21/24 09:00 Intake & Output 03/20/24 03/21/24 03/21/24 18:59 06:59 18:59 Intake Total 849 1588.71 315 Output Total 570 715 200 Balance 279 873.71 115 Weight 73.8 kg 73.8 kg Intake: IV 795 1400 150 Piperacillin-Tazobactam 3 100 500 .375 gm In Sodium Chloride 0.9% 100 ml @ 25 mls/hr IVPB Q8H [facility] Rx#: [id number] Sodium Chloride 0.9% 1, 695 900 150 000 ml @ 75 mls/hr IV . [id number] [facility] Rx#:[id number] Intake, IV Titration 188.71 Amount Heparin Sod,Pork in 0.45% 188.71 NaCl 25,000 unit In 0.45 % NaCl 1 250ml.bag @ 18 UNITS/KG/HR 11.538 mls/hr IV .[id number] [facility] Rx#: [id number] Tube Feeding 54 165 Output: Urine 570 715 200 Other: Voiding Method Indwelling Catheter Indwelling Catheter Indwelling Catheter ABP, PAP, CO, CI - Last Documented Arterial Blood Pressure 117/52 - Exam Head normocephalic Neck supple Lungs clear to auscultation bilaterally no wheezing or crackles Heart regular rate and rhythm S1-S2, no rub or gallop Abdomen is soft nontender nondistended positive bowel sounds no hepatosplenomegaly Extremities no edema Neuro patient is unresponsive - Labs CBC & Chem 7: 03/21/24 05:00 03/21/24 05:00 Labs: Abnormal Lab Results - Last 24 Hours (Table) 03/20/24 03/20/24 03/20/24 Range/Units 11:33 12:35 14:00 WBC (3.8-10.6) k/uL RBC (3.80-5.40) m/uL Hgb (11.4-16.0) gm/dL Hct (34.0-46.0) % Plt Count (150-450) k/uL Neutrophils # (1.3-7.7) k/uL Lymphocytes # (1.0-4.8) k/uL APTT 72.8 H (22.0-30.0) sec ABG HCO3 (21-25) mmol/L ABG Total CO2 (19-24) mmol/L Sodium (137-145) mmol/L Chloride (98-107) mmol/L BUN (7-17) mg/dL Glucose (74-99) mg/dL POC Glucose (mg/dL) 241 H 229 H (70-110) mg/dL Calcium (8.4-10.2) mg/dL Total Protein (6.3-8.2) g/dL Albumin (3.5-5.0) g/dL 03/20/24 03/20/24 03/21/24 Range/Units 17:22 23:55 05:00 WBC 11.3 H (3.8-10.6) k/uL RBC 3.76 L (3.80-5.40) m/uL Hgb 10.0 L (11.4-16.0) gm/dL Hct 32.3 L (34.0-46.0) % Plt Count 117 L (150-450) k/uL Neutrophils # 9.6 H (1.3-7.7) k/uL Lymphocytes # 0.4 L (1.0-4.8) k/uL APTT (22.0-30.0) sec ABG HCO3 (21-25) mmol/L ABG Total CO2 (19-24) mmol/L Sodium (137-145) mmol/L Chloride (98-107) mmol/L BUN (7-17) mg/dL Glucose (74-99) mg/dL POC Glucose (mg/dL) 212 H 237 H (70-110) mg/dL Calcium (8.4-10.2) mg/dL Total Protein (6.3-8.2) g/dL Albumin (3.5-5.0) g/dL 03/21/24 03/21/24 03/21/24 Range/Units 05:00 05:25 05:29 WBC (3.8-10.6) k/uL RBC (3.80-5.40) m/uL Hgb (11.4-16.0) gm/dL Hct (34.0-46.0) % Plt Count (150-450) k/uL Neutrophils # (1.3-7.7) k/uL Lymphocytes # (1.0-4.8) k/uL APTT (22.0-30.0) sec ABG HCO3 31 H (21-25) mmol/L ABG Total CO2 32 H (19-24) mmol/L Sodium 135 L (137-145) mmol/L Chloride 109 H (98-107) mmol/L BUN 37 H (7-17) mg/dL Glucose 209 H (74-99) mg/dL POC Glucose (mg/dL) 180 H (70-110) mg/dL Calcium 7.5 L (8.4-10.2) mg/dL Total Protein 4.4 L (6.3-8.2) g/dL Albumin 2.2 L (3.5-5.0) g/dL 03/21/24 Range/Units 05:32 WBC (3.8-10.6) k/uL RBC (3.80-5.40) m/uL Hgb (11.4-16.0) gm/dL Hct (34.0-46.0) % Plt Count (150-450) k/uL Neutrophils # (1.3-7.7) k/uL Lymphocytes # (1.0-4.8) k/uL APTT 67.7 H (22.0-30.0) sec ABG HCO3 (21-25) mmol/L ABG Total CO2 (19-24) mmol/L Sodium (137-145) mmol/L Chloride (98-107) mmol/L BUN (7-17) mg/dL Glucose (74-99) mg/dL POC Glucose (mg/dL) (70-110) mg/dL Calcium (8.4-10.2) mg/dL Total Protein (6.3-8.2) g/dL Albumin (3.5-5.0) g/dL Assessment and Plan Assessment: 1. Slurred speech and altered mental status changes likely secondary from CVA 2. Acute CHF exacerbation 3. Elevated troponins 4. Ongoing nicotine dependence greater than 1 pack/day 5. History of COPD 6. History of essential hypertension 7. Concerns of aspiration pneumonia patient started on IV Zosyn infectious disease service is consulted 8. Acute on chronic hypoxic and hypercapnic respiratory failure requiring intubation and mechanical ventilation Neurology, cardiology and pulmonary services consulted 2D echo and MRI of the brain ordered Patient started on heparin drip Patient remains on IV Zosyn Patient currently on BiPAP Remains in the intensive care unit Repeat labs ordered PT and OT services consulted
[2024-03-21 11:17] LABS: ABG Base Excess 4.7 mmol/L; ABG HCO3 30 mmol/L (21-25); ABG PCO2 49 mmHg (35-45); ABG PH 7.41 (7.35-7.45); ABG PO2 87 mmHg (83-108); ABG TCO2 32 mmol/L (19-24)
[2024-03-21 11:19] LABS: Allen Test Performed? no
--- NOTE | 2024-03-21 12:26 | P.PN ---
Subjective Progress Note Date: 03/21/24 I am following-up with patient and she continues to be off sedation. Per the nurse, today patient is somewhat better. They are planning to extubated if patient is more awakeable and keep her airway protected. Objective - Vital Signs Vital signs: Vital Signs Temp 98.9 F 03/21/24 08:00 Pulse 75 03/21/24 09:37 Resp 23 03/21/24 09:00 BP 100/56 03/21/24 09:00 Pulse Ox 96 03/21/24 09:00 FiO2 40 03/21/24 11:50 Intake & Output 03/20/24 03/21/24 03/21/24 18:59 06:59 18:59 Intake Total 849 1588.71 315 Output Total 570 715 200 Balance 279 873.71 115 Weight 73.8 kg 73.8 kg Intake: IV 795 1400 150 Piperacillin-Tazobactam 3 100 500 .375 gm In Sodium Chloride 0.9% 100 ml @ 25 mls/hr IVPB Q8H [facility] Rx#: [id number] Sodium Chloride 0.9% 1, 695 900 150 000 ml @ 75 mls/hr IV . [id number] [facility] Rx#:[id number] Intake, IV Titration 188.71 Amount Heparin Sod,Pork in 0.45% 188.71 NaCl 25,000 unit In 0.45 % NaCl 1 250ml.bag @ 18 UNITS/KG/HR 11.538 mls/hr IV .[id number] [facility] Rx#: [id number] Tube Feeding 54 165 Output: Urine 570 715 200 Other: Voiding Method Indwelling Catheter Indwelling Catheter Indwelling Catheter ABP, PAP, CO, CI - Last Documented Arterial Blood Pressure 117/52 - Exam General: Lying in bed and does not appear in acute distress. Lung: Intubated on a ventilator. Neuro: Very limited. IV Propofol held for 72 hours. Patient is moderately drowsy but is awake able intermittently to voice. Patient is oriented to self. She is following very few simple commands. She is left in the left side above gravity. Right upper extremity is no movement is 0 out of 5. Right lower extremity she is wiggling her toes. - Labs CBC & Chem 7: 03/21/24 05:00 03/21/24 05:00 Labs: Abnormal Lab Results - Last 24 Hours (Table) 03/20/24 03/20/24 03/20/24 Range/Units 12:35 14:00 17:22 WBC (3.8-10.6) k/uL RBC (3.80-5.40) m/uL Hgb (11.4-16.0) gm/dL Hct (34.0-46.0) % Plt Count (150-450) k/uL Neutrophils # (1.3-7.7) k/uL Lymphocytes # (1.0-4.8) k/uL APTT 72.8 H (22.0-30.0) sec ABG pCO2 (35-45) mmHg ABG HCO3 (21-25) mmol/L ABG Total CO2 (19-24) mmol/L Sodium (137-145) mmol/L Chloride (98-107) mmol/L BUN (7-17) mg/dL Glucose (74-99) mg/dL POC Glucose (mg/dL) 229 H 212 H (70-110) mg/dL Calcium (8.4-10.2) mg/dL Total Protein (6.3-8.2) g/dL Albumin (3.5-5.0) g/dL 03/20/24 03/21/24 03/21/24 Range/Units 23:55 05:00 05:00 WBC 11.3 H (3.8-10.6) k/uL RBC 3.76 L (3.80-5.40) m/uL Hgb 10.0 L (11.4-16.0) gm/dL Hct 32.3 L (34.0-46.0) % Plt Count 117 L (150-450) k/uL Neutrophils # 9.6 H (1.3-7.7) k/uL Lymphocytes # 0.4 L (1.0-4.8) k/uL APTT (22.0-30.0) sec ABG pCO2 (35-45) mmHg ABG HCO3 (21-25) mmol/L ABG Total CO2 (19-24) mmol/L Sodium 135 L (137-145) mmol/L Chloride 109 H (98-107) mmol/L BUN 37 H (7-17) mg/dL Glucose 209 H (74-99) mg/dL POC Glucose (mg/dL) 237 H (70-110) mg/dL Calcium 7.5 L (8.4-10.2) mg/dL Total Protein 4.4 L (6.3-8.2) g/dL Albumin 2.2 L (3.5-5.0) g/dL 03/21/24 03/21/24 03/21/24 Range/Units 05:25 05:29 05:32 WBC (3.8-10.6) k/uL RBC (3.80-5.40) m/uL Hgb (11.4-16.0) gm/dL Hct (34.0-46.0) % Plt Count (150-450) k/uL Neutrophils # (1.3-7.7) k/uL Lymphocytes # (1.0-4.8) k/uL APTT 67.7 H (22.0-30.0) sec ABG pCO2 (35-45) mmHg ABG HCO3 31 H (21-25) mmol/L ABG Total CO2 32 H (19-24) mmol/L Sodium (137-145) mmol/L Chloride (98-107) mmol/L BUN (7-17) mg/dL Glucose (74-99) mg/dL POC Glucose (mg/dL) 180 H (70-110) mg/dL Calcium (8.4-10.2) mg/dL Total Protein (6.3-8.2) g/dL Albumin (3.5-5.0) g/dL 03/21/24 Range/Units 11:15 WBC (3.8-10.6) k/uL RBC (3.80-5.40) m/uL Hgb (11.4-16.0) gm/dL Hct (34.0-46.0) % Plt Count (150-450) k/uL Neutrophils # (1.3-7.7) k/uL Lymphocytes # (1.0-4.8) k/uL APTT (22.0-30.0) sec ABG pCO2 49 H (35-45) mmHg ABG HCO3 30 H (21-25) mmol/L ABG Total CO2 32 H (19-24) mmol/L Sodium (137-145) mmol/L Chloride (98-107) mmol/L BUN (7-17) mg/dL Glucose (74-99) mg/dL POC Glucose (mg/dL) (70-110) mg/dL Calcium (8.4-10.2) mg/dL Total Protein (6.3-8.2) g/dL Albumin (3.5-5.0) g/dL Assessment and Plan Assessment: Ms. Ponce is a 73-year-old female with history of hypertension, COPD, and bilateral cataracts who was brought to the hospital on March 11 with some speech abnormalities and lethargy. She was noted on CT scan to have a right parietal as well as left precentral gyrus infarct. I personally reviewed it and felt over the left fronto/parietal region) Acute ischemic stroke (right parietal as well as left precentral gyrus infarct on CT per my colleague and per reading radiologist bilateral hemsiphere but I felt over the left fronto/parietal/occipital region and precentral region) and appears embolic (cardioembolic, especially with Atrial fibrillation). On examination today after 48-hour off sedation she is moving the left side but no movement of the right upper extremity and wiggles the right toes. She continues to be drowsy but is awake able to voice. Respiratory distress and is intubated on ventilator Paroxysmal atrial fibrillation Severe pulmonary hypertension Hypertension Hyperlipidemia History of COPD Tobacco dependence Plan: I agree once the patient is extubated recommend MRI of the brain for further evaluation of the stroke. Repeat CT head: No acute intracranial hemorrhage or midline shift. No significant change from most recent prior CT. I reviewed CT and patient has 2 small subacute stroke over the left hemisphere. It seems the patient will require long-term anticoagulant for the management of embolic stroke in light of her atrial fibrillation and it seems that she is on heparin drip. Seems that she is exhibiting some degree of hematuria and will defer the management to the ICU. With my colleague heparin drip needs to be discontinued for short period of time she is receiving rectal aspirin which will cover her minimally for stroke protection. He is on aspirin 325 daily. Patient is on Lipitor 40 mg daily. Continue neurochecks Cardiac monitoring PT OT and DIRECTOR CARD are consulted. For DVT prophylaxis the patient is on heparin drip Discussed with patient's son who is at bedside and ICU nurse. Will continue to follow. Time with Patient: Less than 30
[2024-03-21 12:40] LABS: Glucose,Whole Blood 196 mg/dL (70-110)
--- NOTE | 2024-03-21 14:44 | P.PN ---
Subjective Progress Note Date: 03/21/24 Principal diagnosis: Reason for follow-up is pneumonia Patient is a 73-year-old female with a past medical history significant for COPD hypertension hyperlipidemia patient was brought into the hospital for evaluation of mental status changes and was being worked up for stroke did have worsening of respiratory status concerning for aspiration prompted this consultation. Patient did have worsening of her respiratory status got intubated on 03/16/2024 On today's evaluation that is 03/21/2024, the patient is afebrile the patient has been extubated and is currently on a BiPAP slightly awake but did not answer any question no vomiting diarrhea and the changes reported by the nursing staff. The patient white count is 11.3, creatinine 0.58 Objective - Vital Signs Vital signs: Vital Signs Temp 98.9 F 03/21/24 08:00 Pulse 75 03/21/24 09:37 Resp 23 03/21/24 09:00 BP 100/56 03/21/24 09:00 Pulse Ox 96 03/21/24 09:00 FiO2 35 03/21/24 09:00 Intake & Output 03/20/24 03/21/24 03/21/24 18:59 06:59 18:59 Intake Total 849 1588.71 315 Output Total 570 715 200 Balance 279 873.71 115 Weight 73.8 kg 73.8 kg Intake: IV 795 1400 150 Piperacillin-Tazobactam 3 100 500 .375 gm In Sodium Chloride 0.9% 100 ml @ 25 mls/hr IVPB Q8H [facility] Rx#: [id number] Sodium Chloride 0.9% 1, 695 900 150 000 ml @ 75 mls/hr IV . [id number] [facility] Rx#:[id number] Intake, IV Titration 188.71 Amount Heparin Sod,Pork in 0.45% 188.71 NaCl 25,000 unit In 0.45 % NaCl 1 250ml.bag @ 18 UNITS/KG/HR 11.538 mls/hr IV .[id number] [facility] Rx#: [id number] Tube Feeding 54 165 Output: Urine 570 715 200 Other: Voiding Method Indwelling Catheter Indwelling Catheter Indwelling Catheter ABP, PAP, CO, CI - Last Documented Arterial Blood Pressure 117/52 - Exam GENERAL DESCRIPTION: An elderly female lying in bed in no distress RESPIRATORY SYSTEM: Unlabored breathing , decreased breath sounds at bases HEART: S1 S2 regular rate and rhythm , ABDOMEN: Soft , no tenderness EXTREMITIES: No edema feet - Labs CBC & Chem 7: 03/21/24 05:00 03/21/24 05:00 Labs: Abnormal Lab Results - Last 24 Hours (Table) 03/20/24 03/20/24 03/20/24 Range/Units 11:33 12:35 14:00 WBC (3.8-10.6) k/uL RBC (3.80-5.40) m/uL Hgb (11.4-16.0) gm/dL Hct (34.0-46.0) % Plt Count (150-450) k/uL Neutrophils # (1.3-7.7) k/uL Lymphocytes # (1.0-4.8) k/uL APTT 72.8 H (22.0-30.0) sec ABG HCO3 (21-25) mmol/L ABG Total CO2 (19-24) mmol/L Sodium (137-145) mmol/L Chloride (98-107) mmol/L BUN (7-17) mg/dL Glucose (74-99) mg/dL POC Glucose (mg/dL) 241 H 229 H (70-110) mg/dL Calcium (8.4-10.2) mg/dL Total Protein (6.3-8.2) g/dL Albumin (3.5-5.0) g/dL 03/20/24 03/20/24 03/21/24 Range/Units 17:22 23:55 05:00 WBC 11.3 H (3.8-10.6) k/uL RBC 3.76 L (3.80-5.40) m/uL Hgb 10.0 L (11.4-16.0) gm/dL Hct 32.3 L (34.0-46.0) % Plt Count 117 L (150-450) k/uL Neutrophils # 9.6 H (1.3-7.7) k/uL Lymphocytes # 0.4 L (1.0-4.8) k/uL APTT (22.0-30.0) sec ABG HCO3 (21-25) mmol/L ABG Total CO2 (19-24) mmol/L Sodium (137-145) mmol/L Chloride (98-107) mmol/L BUN (7-17) mg/dL Glucose (74-99) mg/dL POC Glucose (mg/dL) 212 H 237 H (70-110) mg/dL Calcium (8.4-10.2) mg/dL Total Protein (6.3-8.2) g/dL Albumin (3.5-5.0) g/dL 03/21/24 03/21/24 03/21/24 Range/Units 05:00 05:25 05:29 WBC (3.8-10.6) k/uL RBC (3.80-5.40) m/uL Hgb (11.4-16.0) gm/dL Hct (34.0-46.0) % Plt Count (150-450) k/uL Neutrophils # (1.3-7.7) k/uL Lymphocytes # (1.0-4.8) k/uL APTT (22.0-30.0) sec ABG HCO3 31 H (21-25) mmol/L ABG Total CO2 32 H (19-24) mmol/L Sodium 135 L (137-145) mmol/L Chloride 109 H (98-107) mmol/L BUN 37 H (7-17) mg/dL Glucose 209 H (74-99) mg/dL POC Glucose (mg/dL) 180 H (70-110) mg/dL Calcium 7.5 L (8.4-10.2) mg/dL Total Protein 4.4 L (6.3-8.2) g/dL Albumin 2.2 L (3.5-5.0) g/dL 03/21/24 Range/Units 05:32 WBC (3.8-10.6) k/uL RBC (3.80-5.40) m/uL Hgb (11.4-16.0) gm/dL Hct (34.0-46.0) % Plt Count (150-450) k/uL Neutrophils # (1.3-7.7) k/uL Lymphocytes # (1.0-4.8) k/uL APTT 67.7 H (22.0-30.0) sec ABG HCO3 (21-25) mmol/L ABG Total CO2 (19-24) mmol/L Sodium (137-145) mmol/L Chloride (98-107) mmol/L BUN (7-17) mg/dL Glucose (74-99) mg/dL POC Glucose (mg/dL) (70-110) mg/dL Calcium (8.4-10.2) mg/dL Total Protein (6.3-8.2) g/dL Albumin (3.5-5.0) g/dL Assessment and Plan (1) Aspiration pneumonia Current Visit: Yes Status: Acute Code(s): J69.0 - PNEUMONITIS DUE TO INHALATION OF FOOD AND VOMIT SNOMED Code(s): 143665975 (2) Leukocytosis Current Visit: Yes Status: Acute Code(s): D72.829 - ELEVATED WHITE BLOOD CELL COUNT, UNSPECIFIED SNOMED Code(s): 165742728 Plan: 1patient with worsening respiratory status and this patient initially brought into the hospital with slurred speech and being worked up for a CVA with worsening of respiratory status requiring BiPAP and a question of possible aspiration. 2patient did have CT angiogram of the chest shows consolidation concerning for pneumonia possible aspiration repeat CT of the brain concerning for subacute infarct with some progression neurology is following the patient 3patient did have worsening of respiratory status requiring intubation sputum culture has been obtained which are so far negative patient subsequently has been extubated 4patient is afebrile white count slightly up today we will monitor closely and the patient to be treated with Zosyn Dictation was produced using [employer] software. please excuse any grammatical, word or spelling errors. Time with Patient: Less than 30
--- NOTE | 2024-03-21 15:56 | P.PN ---
Subjective Progress Note Date: 03/21/24 Principal diagnosis: Acute CVA This is a 73-year-old female patient, a chronic smoker smokes around 1.5 packs of cigarettes on a daily basis, known to have COPD, nevertheless, does not utilize any form of respiratory medications or inhalers on outpatient basis. Denies having any home O2. Most of the information was obtained from the son at the bedside who also happens to be a poor historian. The patient came into the hospital because of slurred speech and she was not following commands and she was altered. The patient had no fever. No headaches. No neck stiffness. CAT scan of the head showed a right parietal lobe acute/subacute infarcts. She was in normal sinus rhythm. At the same time, the patient was found to have elevated troponins of 0.3, 0.4 and 0.4 respectively x 3. The white cell count was at 5.7 with a hemoglobin 15.4 and the patient had a normal creatinine of 0.56 with a BUN of 14. Neurology was involved in her case and the patient was given a CTA of the brain that showed no evidence of any dissection of the cervical and the vertebral arteries and there was no evidence of any significant stenosis in the carotids or in the intracranial arteries. There was however an area of atelectasis in the left upper lobe and this is based on the partial visualization of the lung windows done on the CAT scan of the head and neck. The patient is quite hypoxic and she is currently on 5 L of oxygen by nasal cannula with pulse ox 92%. Based on those findings, pulmonary consultation was requested. Her proBNP level is 6490. She is currently on IV heparin based on elevated troponins. She is also on aspirin. Cardiology is also on the case. Echocardiogram was done and the patient was found to have a normal LV function, severe RV dilatation and evidence of severe pulmonary hypertension. On 03/16/2024, the patient remains quite unresponsive. Remains on BiPAP. Barely responsive to painful stimulation. Mental status is significantly diminished. She remains on a BiPAP pressure of 12/5 with an FiO2 of 40%. Generated tidal volumes noted of 200 cc. The blood gas from today showed a pH of 7.14 with a pCO2 of above 98 and pO2 of 101. Based on that, I do lengthy discussion with the family and recommended intubation mechanical ventilation while the patient's stroke evolves further. The chest x-ray from today shows COPD with diffuse inc reased interstitial infiltrates bilaterally. This could be fluid versus interstitial pneumonia and the patient remains on IV Zosyn. The patient's cardiac rhythm is sinus. No further episodes of atrial fibrillation has been noted and the patient remains on IV heparin. IV fluids are in the form of normal saline at rate of 75 cc an hour. She remains on bronchodilators. She remains on systemic steroids. A follow-up CAT scan of the brain was done yesterday and it showed evidence of subacute multiple infarcts and there was no evidence of any bleeding. Based on all this, the patient was intubated and currently is on assist-control mode of mechanical ventilation at rate of 24, tidal volume of 400 with a PEEP of 5 and FiO2 of 100%. Postintubation blood gas showed a pH of 7.29 with a pCO2 of 76 and pO2 of 374. FiO2 will be gradually weaned. Triple-lumen catheter and a arterial line was also inserted. Enteral feeding will be also initiated. She remains on aspirin. She remains on sta tins. Patient was seen today , patient was intubated yesterday, and she is now on mechanical ventilation. Patient developed worsening hypoxic and hypercapnic respiratory failure required intubation mechanical ventilation. Patient is now on assist-control rate of 20 tidal volume 400 FiO2 40% and PEEP of 5 ABG showed a pO2 of 93 pCO2 45 pH of 7.47 hence no changes were made in her present ventilator settings. Patient is on vital AF at 10 cc/h she is also on propofol at 50 mcg/kg/min, amiodarone 0.5 mg/min heparin drip IV fluid 0.9 normal saline at 75 cc/h Solu-Medrol 60 every 6 Zosyn empirically for possible aspiration. Patient had a presentation of 2 weeks history of headache and stuttering. She was found to have right parietal CVA. Patient was intubated on 03/16 remains intubated and sedated. Chest x-ray showed COPD with ongoing interstitial opacities throughout both lungs. And opacity noted in the left retrocardiac area suspicious for pneumonia with some opacity in the right base that seems to be improving WBC count today is 7.7 hemoglobin 13.5 basic metabolic profile is normal, BUN is 40 creatinine 0.83 Patient was seen today on 03/18/2024, remains in ICU, intubated and mechanically ventilated, on assist-control rate of 20 tidal volume 400 FiO2 40% and PEEP of 5 ABG showed a pO2 of 134 pCO2 44 pH of 7.44. Based on ABG I recommended cutting down her FiO2 to 35% and decreased today down to 18. Patient is on vital HP at 10/35 she is also on propofol at 20 mcg/kg/min, heparin drip IV fluid 0.9 normal saline at 75 cc/h patient is receiving Zosyn empirically. She had fluid balance +1 L over the last 24 hours. WBC count is 8.7 hemoglobin 13.9 platelets are 144. Electrolytes are normal renal profile is normal with BUN of 33 creatinine 0.61 blood sugar is 204 chest x-ray is showing nonspecific interstitial infiltrates and a patchy left retrocardiac opacity. Seen today on 03/19/2024, patient remains in the ICU, intubated and mechanically ventilated, on assist-control rate of 18 tidal volume 400 FiO2 35% and PEEP of 5 ABG showed a pO2 of 96 pCO2 46 pH of 7.43 patient was taken off propofol yesterday, remains on propofol, and does not seem to follow any instructions, she opens her eyes, withdraws to pain, moves her left upper extremity withdraws to pain mostly. Patient remains on heparin, IV fluid 0.9 at 75 cc/h vital HP at 35/35. Remains on Solu-Medrol and on Zosyn. Patient to remain off propofol today, and no plans to place her back on propofol for now. Would like to get further assessment of her mental status as she seems to be not responding purposefully to any stimuli except withdraws to pain. Patient opens her eyes but does not follow any instructions. WBC is 7.0 hemoglobin 11, basic metabolic profile noted, potassium is a bit low at 3.1 but renal profile is normal. Patient was evaluated today on 03/20/2024, remains in the ICU, intubated and mechanically ventilated. Patient has been off propofol now for 2 days, opening eyes, wiggling toes, squeezing hands, but still not fully awake. And it takes a lot of repetition of instructions to make the patient understand or comprehend what she is being told. Patient remains extremely slow, she is on assist- control rate of 18 tidal volume 400 FiO2 35% PEEP of 5 ABG showed a pO2 of 76 pCO2 45 pH of 7.44. Chest x-ray showed slight worsening of her interstitial opacities bilaterally. Patient is on Zosyn.WBC count is 6.7 hemoglobin 9.6. Basic metabolic profile is normal renal profile is normal. Sputum cultures are nondiagnostic showed mostly normal rubin Patient was evaluated today on 03/21/2024, patient remains in the ICU, intubated and mechanically ventilated, on assist-control rate of 18 tidal volume 400 FiO2 35% PEEP of 5 ABG showed a pO2 of 83 pCO2 45 pH of 7.44 patient remains off propofol, she is arousable she is awake, follows simple instructions cannot use her right upper extremity seems to be paralyzed. Related to her acute CVA involving the left parietal area. Patient remains on heparin, on IV fluid at 75 cc/h vital AF at 55/55, patient is also on Solu-Medrol and Zosyn. Family is noted at bedside, patient is the best I have seen her today as far as her mental status is concerned, she seems to be more awake, more appropriate, and feels to follow instructions quite well. Hence I recommended a trial of pressure support of 10 and CPAP, and if tolerated I plan to proceed with further weaning and possibly extubationChest x-ray showed COPD with similar diffuse bilateral interstitial patchy opacities patient is on antibiotics for presumptive aspiration pneumonia WBC count is 11.3 hemoglobin is 10, Basic metabolic profile is normal renal profile is normal Objective - Vital Signs Vital signs: Vital Signs Temp 98.8 F 03/21/24 12:00 Pulse 70 03/21/24 15:00 Resp 27 H 03/21/24 15:00 BP 109/61 03/21/24 15:00 Pulse Ox 98 03/21/24 15:00 FiO2 40 03/21/24 15:35 Intake & Output 03/20/24 03/21/24 03/21/24 18:59 06:59 18:59 Intake Total 849 1588.71 765 Output Total 570 715 525 Balance 279 873.71 240 Weight 73.8 kg 73.8 kg Intake: IV 795 1400 600 Piperacillin-Tazobactam 3 100 500 .375 gm In Sodium Chloride 0.9% 100 ml @ 25 mls/hr IVPB Q8H [facility] Rx#: [id number] Sodium Chloride 0.9% 1, 695 900 600 000 ml @ 75 mls/hr IV . [id number] [facility] Rx#:[id number] Intake, IV Titration 188.71 Amount Heparin Sod,Pork in 0.45% 188.71 NaCl 25,000 unit In 0.45 % NaCl 1 250ml.bag @ 18 UNITS/KG/HR 11.538 mls/hr IV .[id number] [facility] Rx#: [id number] Tube Feeding 54 165 Output: Urine 570 715 525 Other: Voiding Method Indwelling Catheter Indwelling Catheter Indwelling Catheter ABP, PAP, CO, CI - Last Documented Arterial Blood Pressure 125/52 - Exam physical exam revealed a 73-year-old female intubated mechanically ventilated in no distress, awake, follows simple instructions Head exam is unremarkable. No scleral icterus or corneal arcus noted. Neck is without jugular venous distension, thyromegaly, or carotid bruits. Lungs symmetrical chest expansion slightly diminished breath sound at the bases no rhonchi no wheezes Cardiac exam distant S1-S2, no S3 gallop, no murmur. Abdominal exam reveals soft nontender no megaly no rebound no guarding Extremities no clubbing edema or cyanosis. Examination of the skin showed no specific rashes Neurologically, opens eyes follows simple instructions not move right upper extremity Psychiatric: Normal mood and affect, seems to have normal mental status difficulty moving her right upper extremity seems to be paralyzed. - Labs CBC & Chem 7: 03/21/24 05:00 03/21/24 05:00 Labs: Abnormal Lab Results - Last 24 Hours (Table) 03/20/24 03/20/24 03/21/24 Range/Units 17:22 23:55 05:00 WBC 11.3 H (3.8-10.6) k/uL RBC 3.76 L (3.80-5.40) m/uL Hgb 10.0 L (11.4-16.0) gm/dL Hct 32.3 L (34.0-46.0) % Plt Count 117 L (150-450) k/uL Neutrophils # 9.6 H (1.3-7.7) k/uL Lymphocytes # 0.4 L (1.0-4.8) k/uL APTT (22.0-30.0) sec ABG pCO2 (35-45) mmHg ABG HCO3 (21-25) mmol/L ABG Total CO2 (19-24) mmol/L Sodium (137-145) mmol/L Chloride (98-107) mmol/L BUN (7-17) mg/dL Glucose (74-99) mg/dL POC Glucose (mg/dL) 212 H 237 H (70-110) mg/dL Calcium (8.4-10.2) mg/dL Total Protein (6.3-8.2) g/dL Albumin (3.5-5.0) g/dL 03/21/24 03/21/24 03/21/24 Range/Units 05:00 05:25 05:29 WBC (3.8-10.6) k/uL RBC (3.80-5.40) m/uL Hgb (11.4-16.0) gm/dL Hct (34.0-46.0) % Plt Count (150-450) k/uL Neutrophils # (1.3-7.7) k/uL Lymphocytes # (1.0-4.8) k/uL APTT (22.0-30.0) sec ABG pCO2 (35-45) mmHg ABG HCO3 31 H (21-25) mmol/L ABG Total CO2 32 H (19-24) mmol/L Sodium 135 L (137-145) mmol/L Chloride 109 H (98-107) mmol/L BUN 37 H (7-17) mg/dL Glucose 209 H (74-99) mg/dL POC Glucose (mg/dL) 180 H (70-110) mg/dL Calcium 7.5 L (8.4-10.2) mg/dL Total Protein 4.4 L (6.3-8.2) g/dL Albumin 2.2 L (3.5-5.0) g/dL 03/21/24 03/21/24 03/21/24 Range/Units 05:32 11:15 12:39 WBC (3.8-10.6) k/uL RBC (3.80-5.40) m/uL Hgb (11.4-16.0) gm/dL Hct (34.0-46.0) % Plt Count (150-450) k/uL Neutrophils # (1.3-7.7) k/uL Lymphocytes # (1.0-4.8) k/uL APTT 67.7 H (22.0-30.0) sec ABG pCO2 49 H (35-45) mmHg ABG HCO3 30 H (21-25) mmol/L ABG Total CO2 32 H (19-24) mmol/L Sodium (137-145) mmol/L Chloride (98-107) mmol/L BUN (7-17) mg/dL Glucose (74-99) mg/dL POC Glucose (mg/dL) 196 H (70-110) mg/dL Calcium (8.4-10.2) mg/dL Total Protein (6.3-8.2) g/dL Albumin (3.5-5.0) g/dL Assessment and Plan Assessment: Impression: Acute CVA, 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 Acute on chronic hypoxic and hypercapnic respiratory failure requiring i ntubation and mechanical ventilation, patient has underlying COPD History of COPD Paroxysmal atrial fibrillation Possible chronic hypoxic and hypercapnic respiratory failure Tobacco dependence syndrome, Severe pulmonary hypertension related to chronic obstructive lung disease and chronic hypoxia Abnormal troponins no evidence of acute ST segment changes Hypertension Dyslipidemia Recommendation: Continue ventilatory support, other a trial of weaning will be given, and if tolerated may go to pressure support and CPAP and may even continue to extubate. Continue aspirin Considering the patient multiple subacute infarcts on CT of the brain may have to consider BRIAN at a later stage. Continue bronchodilators and antibiotics Continue GI DVT prophylaxis Continue IV fluid and nutritional support Continue to hold narcotics and sedative Remains critically ill family is at bedside updated on her condition Will continue to Critical care time is over 30 minutes Time with Patient: Greater than 30
[2024-03-21 18:18] LABS: Glucose,Whole Blood 153 mg/dL (70-110)
--- NOTE | 2024-03-21 20:43 | PN ---
PROGRESS NOTE SUBJECTIVE: Mirtha is a 73-year-old lady, who remains intubated and has history of paroxysmal atrial fibrillation, currently on IV heparin. This morning, she is more alert, awake and currently they are trying to wean to extubate her. OBJECTIVE: VITAL SIGNS: Heart rate is 80 beats per minute, blood pressure 117/52, respiratory rate is 18. The patient is mechanically ventilated with an O2 saturation of 96% with an FiO2 of 35. NECK: There is no jugular venous distention. CHEST: Reveals diminished air entry at the bases. HEART: Reveals first and second heart sounds and a systolic murmur at the apex. ABDOMEN: Soft. EXTREMITIES: Revealed mild edema. Peripheral pulses are felt. LABORATORY DATA: Labs show a hemoglobin of 10, potassium of 3.8, creatinine of 0.5. ASSESSMENT: 1. Vent-requiring respiratory failure. 2. Cerebrovascular accident. 3. Paroxysmal atrial fibrillation. PLAN: I will continue her on the IV heparin. MMODL / IJN: [id number] /
[2024-03-21 23:45] LABS: Glucose,Whole Blood 170 mg/dL (70-110)
[2024-03-22 05:53] LABS: Glucose,Whole Blood 133 mg/dL (70-110)
[2024-03-22 06:02] LABS: Glucose,Whole Blood 126 mg/dL (70-110)
[2024-03-22 06:17] LABS: HCT 39.2 % (34.0-46.0); HGB 11.6 gm/dL (11.4-16.0); Hypochromasia Marked; MCH 25.5 pg (25.0-35.0); MCHC 29.7 g/dL (31.0-37.0); MCV 85.8 fL (80.0-100.0); Mean Platelet Volume 8.6; Platelet Count 160 k/uL (150-450); RBC 4.56 m/uL (3.80-5.40); RDW 15.5 % (11.5-15.5); WBC 12.9 k/uL (3.8-10.6)
[2024-03-22 06:22] LABS: African American GFR (CKD) >90 (>60 ml/min/1.73 sqM); Anion Gap -2 mmol/L; Blood Urea Nitrogen 32 mg/dL (7-17); Calcium 7.8 mg/dL (8.4-10.2); Carbon Dioxide 30 mmol/L (22-30); Chloride 108 mmol/L (98-107); Glucose 157 mg/dL (74-99); Non-African American GFR(CKD) >90 (>60 ml/min/1.73 sqM); Potassium 4.4 mmol/L (3.5-5.1); Sodium 136 mmol/L (137-145)
--- NOTE | 2024-03-22 07:04 | XR ---
EXAMINATION TYPE: XR chest 1V portable DATE OF EXAM: 03/22/2024 COMPARISON: 03/21/2024 CLINICAL INDICATION: Female, 73 years old with history of extubated 03/21; TECHNIQUE: Single frontal view of the chest is obtained. FINDINGS: The NG tube has been removed in the interval. There is a left central venous catheter tip in the SVC/ RA junction. There has been interval removal of the NG tube. There is no change in diffuse predominantly interstitial opacity with a few scattered small airspace opacities There is no pneumothorax. There is no pleural effusion. The osseous structures are intact IMPRESSION: 1. ET tube and NG tube removed in the interval. 2. No change in central venous catheter tip 3. No change in the diffuse interstitial process either stable acute changes or chronic interstitial changes. [facility], , 03/22/2024 7:02 AM
[2024-03-22 11:37] LABS: Glucose,Whole Blood 158 mg/dL (70-110)
[2024-03-22] MEDS: APIXABAN 5 MG TAB PO SCH (11:42)
[2024-03-22] MEDS: FUROSEMIDE 10 MG/ML 2 ML VIAL IV STA (11:42)
--- NOTE | 2024-03-22 13:00 | P.PN ---
Subjective Progress Note Date: 03/22/24 Mirtha Ponce is a 73-year-old female patient who initially presented to her PCP with complaints of slurring of speech patient was directed to come to ER for further evaluation. At this time patient is in bed sleeping not following commands or answering questions. Family at bedside history obtained through them and medical records. According to family patient was found to be having slurred speech patient did not want to come to ER at that time so was taken to PCP. Per family patient is a heavy smoker but denies any alcohol or drug use. Denies any recent illness. Additional medical history includes COPD, hypertension. Head CT completed showing right parietal lobe acute/subacute CVA. EKG completed showing sinus rhythm. Chest x-ray completed showing cardiomegaly with pulmonary vascular congestion correlate with serum BNP COPD changes. Lab work revealing troponin 0.379, 0.429 and 0.436, white blood cell 5.7, hemoglobin 15.4 creatinine 0.56 bun 14. At this time neurology services have been consulted MRI of the brain has been ordered CTA of the carotids ordered. Will order 2D echo and consult cardiology services. Due to patient's increasing altered mental status changes and concerns for respiratory status we will consult pulmonary services. Patient's BNP also elevated at 6490 will give 1 dose of IV Lasix. Current vital signs temp 97.9, heart rate 96, respiratory rate 18, blood pressure 100/59 with a pulse ox of 95% on nonrebreather. On 03/13/2024 patient was seen and examined on the medical floor she is alert and oriented x 3 in no apparent distress, she has a low-grade fever of 99.4 pulse 108 respiration 22 blood pressure 123/61 pulse ox 91% on 6 L nasal cannula, she has cough, with minimal sputum production she denies any chest pain or shortness of breath no nausea or vomiting no abdominal pain no diarrhea and no urinary symptoms. At this time will keep patient n.p.o. for possible aspiration, will start IV Zosyn and repeat chest x-ray, infectious disease con sultation was added, will continue with IV heparin due to elevated troponin levels, awaiting cardiology input. Neurology consult reviewed. On 03/14/2024 patient remains lethargic in the intensive care unit. Patient was placed on BiPAP. Patient also started on IV Zosyn for concerns of aspiration pneumonia patient not following commands at this time recommendations for possible Dobbhoff placement in order to administer oral medications. Neurology services are following MRI has been ordered but cannot be performed while patient is on BiPAP and heparin. Critical care services following infectious disease, cardiology and neurology services following. Current vital signs temp 98.1, heart rate 96, respiratory rate 27, blood pressure 119/69 with a pulse ox of 96% on BiPAP with an FiO2 of 45%. Family at bedside all questions answered On 03/15/2024 patient was seen and examined in the intensive care unit, she is not responsive at this time she is maintained on BiPAP, vital examination r eveals a temperature of 97.9 pulse 89 respiration 24 blood pressure 110/62 pulse ox 99% on FiO2 45% White blood count is 8.7 hemoglobin 13.8 platelet count 249 arterial blood gas revealed a pH of 7.24 pCO2 95% PaO2 96%, BUN 43 creatinine 0.69. Patient is followed by neurology, infectious disease, cardiology and pulmonary critical care, she remains on IV heparin. CT scan of the brain, was repeated yesterday and reveals multiple subacute infarcts no acute bleed or mass effect, chest x-r ay done this morning reveals diffuse interstitial infiltrates. Prognosis is guarded. On 03/16/2024 patient remains in the intensive care unit ABGs continued to decline despite BiPAP. Plans for intubation today per critical care.. Family at bedside. Plan discussed with family and nursing staff. Patient remains on IV Zosyn and IV Cardizem. Prognosis remains guarded. Neurology, infectious disease, cardiology and critical care services are all following. On 03/17/2024 patient was seen and examined in the intensive care unit, she is intubated sedated maintained on mechanical ventilation, assist control rate of 20 FiO2 40% with a PEEP of 5, she is maintained on IV antibiotic Zosyn and IV Solu-Medrol 60 mg every 6 hours. White blood count is 7.7 hemoglobin 13.5 platelet count 169 BUN 40 creatinine 0.83, patient is still maintained on IV heparin. Will continue to follow closely On 03/18/2024 patient remains in the intensive care unit intubated and sedated on mechanical ventilation with an FiO2 of 40%. Patient remains on IV antibiotics Zosyn. Patient remains on IV heparin drip. WBC 8.7, hemoglobin 13.9 creatinine 0.61 bun 33 multiple consults following On 03/19/2024 patient remains in the intensive care unit. Sedation has been stopped per critical care will assess mentation. Current vital signs temp 98.2, heart rate 75, respiratory rate 20, blood pressure 117/66 with pulse ox of 96% on mechanical ventilation with an FiO2 of 35%. White blood cell 7.0 hemoglobin 11.0 creatinine 0.51 bun 27 potassium low at 3.1 this to be replaced per protocol. Multiple consults following On 03/20/2024 patient remains in the intensive care unit. On mechanical ventilation. Sedation remains off. Chest x-ray completed showing COPD with slight worsening in the diffuse interstitial and patchy opacitiesThat has been increasing over the past few days 4. History of coronary artery disease. Current vital signs temp 98.2, heart rate 80, respiratory rate 19, blood pressure 121/68 with a pulse ox of 95% on mechanical ventilation with an FiO2 of 35% On 03/21/2024 patient remains in the intensive care unit today patient is awake following commands on mechanical ventilation sedation remains off. Per critical care will attempt extubation today. Patient had follow-up CT yesterday per neurology services anticipate patient will need MRI once extubated and stable. Current vital signs temp 98.9, heart rate 77, respiratory rate 19, blood pressure 100/57 on mechanical ventilation at FiO2 of 35% On 03/22/2024 patient was seen and examined in the ICU, she is alert and oriented x 3 in no apparent distress, she is off the ventilator and is maintained on oxygen 4 L via nasal cannula, she is responsive and answering questions by yes or no, there is no fever or chills no headache or dizziness no chest pain no shortness of breath no cough no nausea or vomiting no abdominal pain no diarrhea and no urinary symptoms. Patient had a recent stroke, repeat swallow evaluation is scheduled for Sunday. Objective - Vital Signs Vital signs: Vital Signs Temp 97.8 F 03/22/24 08:00 Pulse 67 03/22/24 08:00 Resp 23 03/22/24 08:00 BP 92/57 03/22/24 08:00 Pulse Ox 99 03/22/24 08:00 FiO2 40 03/22/24 08:00 Intake & Output 03/21/24 03/22/24 03/22/24 18:59 06:59 18:59 Intake Total 1065 1258.666 150 Output Total 725 605 60 Balance 340 653.666 90 Weight 73.8 kg 74.4 kg Intake: IV 900 1025 150 Piperacillin-Tazobactam 3 200 .375 gm In Sodium Chloride 0.9% 100 ml @ 25 mls/hr IVPB Q8H [facility] Rx#: [id number] Sodium Chloride 0.9% 1, 900 825 150 000 ml @ 75 mls/hr IV . [id number] [facility] Rx#:[id number] Intake, IV Titration 233.666 Amount Heparin Sod,Pork in 0.45% 233.666 NaCl 25,000 unit In 0.45 % NaCl 1 250ml.bag @ 18 UNITS/KG/HR 11.538 mls/hr IV .[id number] [facility] Rx#: [id number] Tube Feeding 165 Output: Urine 725 605 60 Other: Voiding Method Indwelling Catheter Indwelling Catheter ABP, PAP, CO, CI - Last Documented Arterial Blood Pressure 119/48 - Exam Head normocephalic Neck supple Lungs clear to auscultation bilaterally no wheezing or crackles Heart regular rate and rhythm S1-S2, no rub or gallop Abdomen is soft nontender nondistended positive bowel sounds no hepatosplenomegaly Extremities no edema Neuro patient is unresponsive - Labs CBC & Chem 7: 03/22/24 04:45 03/22/24 04:45 Labs: Abnormal Lab Results - Last 24 Hours (Table) 03/21/24 03/21/24 03/21/24 Range/Units 11:15 12:39 18:17 WBC (3.8-10.6) k/uL MCHC (31.0-37.0) g/dL APTT (22.0-30.0) sec ABG pCO2 49 H (35-45) mmHg ABG HCO3 30 H (21-25) mmol/L ABG Total CO2 32 H (19-24) mmol/L Sodium (137-145) mmol/L Chloride (98-107) mmol/L BUN (7-17) mg/dL Creatinine (0.52-1.04) mg/dL Glucose (74-99) mg/dL POC Glucose (mg/dL) 196 H 153 H (70-110) mg/dL Calcium (8.4-10.2) mg/dL 03/21/24 03/22/2424 Range/Units 23:44 04:45 04:45 WBC 12.9 H (3.8-10.6) k/uL MCHC 29.7 L (31.0-37.0) g/dL APTT (22.0-30.0) sec ABG pCO2 (35-45) mmHg ABG HCO3 (21-25) mmol/L ABG Total CO2 (19-24) mmol/L Sodium 136 L (137-145) mmol/L Chloride 108 H (98-107) mmol/L BUN 32 H (7-17) mg/dL Creatinine 0.49 L (0.52-1.04) mg/dL Glucose 157 H (74-99) mg/dL POC Glucose (mg/dL) 170 H (70-110) mg/dL Calcium 7.8 L (8.4-10.2) mg/dL 03/22/24 03/22/24 03/22/24 Range/Units 05:00 05:52 06:00 WBC (3.8-10.6) k/uL MCHC (31.0-37.0) g/dL APTT 69.5 H (22.0-30.0) sec ABG pCO2 (35-45) mmHg ABG HCO3 (21-25) mmol/L ABG Total CO2 (19-24) mmol/L Sodium (137-145) mmol/L Chloride (98-107) mmol/L BUN (7-17) mg/dL Creatinine (0.52-1.04) mg/dL Glucose (74-99) mg/dL POC Glucose (mg/dL) 133 H 126 H (70-110) mg/dL Calcium (8.4-10.2) mg/dL Assessment and Plan Assessment: 1. Slurred speech and altered mental status changes likely secondary from CVA 2. Acute CHF exacerbation 3. Elevated troponins 4. Ongoing nicotine dependence greater than 1 pack/day 5. History of COPD 6. History of essential hypertension 7. Concerns of aspiration pneumonia patient started on IV Zosyn infectious disease service is consulted 8. Acute on chronic hypoxic and hypercapnic respiratory failure requiring intubation and mechanical ventilation Neurology, cardiology and pulmonary services consulted 2D echo and MRI of the brain ordered Patient started on heparin drip Patient remains on IV Zosyn Patient currently on BiPAP Remains in the intensive care unit Repeat labs ordered PT and OT services consulted
--- NOTE | 2024-03-22 13:08 | PN ---
PROGRESS NOTE HISTORY OF PRESENT ILLNESS: Mirtha is a 73-year-old lady with paroxysmal atrial fibrillation, CVA, vent requiring respiratory failure. She looks much better today. She is extubated, able to respond to questions. Remains in sinus rhythm. PHYSICAL EXAMINATION: VITAL SIGNS: Heart rate is 69 beats per minute, blood pressure is , respirations 18, O2 saturation is 98%. CHEST: Reveals diminished air entry at the bases. HEART: Reveals first and second heart sounds. No gallop. Has a systolic murmur at the left lower sternal border. ABDOMEN: Soft. EXTREMITIES: Reveals bilateral 1+ pitting edema. LABORATORY DATA: Labs show a hemoglobin of 11.6. Potassium is 4.4, creatinine is 0.49. ASSESSMENT AND PLAN: 1. Paroxysmal atrial fibrillation. 2. Cerebrovascular accident. 3. Vent requiring respiratory failure. The patient is doing much better. She had been extubated. We will start her on Eliquis and stop the heparin once the bronchoscopy is done. MMODL / IJN: [id number] /
--- NOTE | 2024-03-22 13:29 | P.PN ---
Subjective Progress Note Date: 03/22/24 Principal diagnosis: Acute CVA This is a 73-year-old female patient, a chronic smoker smokes around 1.5 packs of cigarettes on a daily basis, known to have COPD, nevertheless, does not utilize any form of respiratory medications or inhalers on outpatient basis. Denies having any home O2. Most of the information was obtained from the son at the bedside who also happens to be a poor historian. The patient came into the hospital because of slurred speech and she was not following commands and she was altered. The patient had no fever. No headaches. No neck stiffness. CAT scan of the head showed a right parietal lobe acute/subacute infarcts. She was in normal sinus rhythm. At the same time, the patient was found to have elevated troponins of 0.3, 0.4 and 0.4 respectively x 3. The white cell count was at 5.7 with a hemoglobin 15.4 and the patient had a normal creatinine of 0.56 with a BUN of 14. Neurology was involved in her case and the patient was given a CTA of the brain that showed no evidence of any dissection of the cervical and the vertebral arteries and there was no evidence of any significant stenosis in the carotids or in the intracranial arteries. There was however an area of atelectasis in the left upper lobe and this is based on the partial visualization of the lung windows done on the CAT scan of the head and neck. The patient is quite hypoxic and she is currently on 5 L of oxygen by nasal cannula with pulse ox 92%. Based on those findings, pulmonary consultation was requested. Her proBNP level is 6490. She is currently on IV heparin based on elevated troponins. She is also on aspirin. Cardiology is also on the case. Echocardiogram was done and the patient was found to have a normal LV function, severe RV dilatation and evidence of severe pulmonary hypertension. On 03/16/2024, the patient remains quite unresponsive. Remains on BiPAP. Barely responsive to painful stimulation. Mental status is significantly diminished. She remains on a BiPAP pressure of 12/5 with an FiO2 of 40%. Generated tidal volumes noted of 200 cc. The blood gas from today showed a pH of 7.14 with a pCO2 of above 98 and pO2 of 101. Based on that, I do lengthy discussion with the family and recommended intubation mechanical ventilation while the patient's stroke evolves further. The chest x-ray from today shows COPD with diffuse inc reased interstitial infiltrates bilaterally. This could be fluid versus interstitial pneumonia and the patient remains on IV Zosyn. The patient's cardiac rhythm is sinus. No further episodes of atrial fibrillation has been noted and the patient remains on IV heparin. IV fluids are in the form of normal saline at rate of 75 cc an hour. She remains on bronchodilators. She remains on systemic steroids. A follow-up CAT scan of the brain was done yesterday and it showed evidence of subacute multiple infarcts and there was no evidence of any bleeding. Based on all this, the patient was intubated and currently is on assist-control mode of mechanical ventilation at rate of 24, tidal volume of 400 with a PEEP of 5 and FiO2 of 100%. Postintubation blood gas showed a pH of 7.29 with a pCO2 of 76 and pO2 of 374. FiO2 will be gradually weaned. Triple-lumen catheter and a arterial line was also inserted. Enteral feeding will be also initiated. She remains on aspirin. She remains on sta tins. Patient was seen today , patient was intubated yesterday, and she is now on mechanical ventilation. Patient developed worsening hypoxic and hypercapnic respiratory failure required intubation mechanical ventilation. Patient is now on assist-control rate of 20 tidal volume 400 FiO2 40% and PEEP of 5 ABG showed a pO2 of 93 pCO2 45 pH of 7.47 hence no changes were made in her present ventilator settings. Patient is on vital AF at 10 cc/h she is also on propofol at 50 mcg/kg/min, amiodarone 0.5 mg/min heparin drip IV fluid 0.9 normal saline at 75 cc/h Solu-Medrol 60 every 6 Zosyn empirically for possible aspiration. Patient had a presentation of 2 weeks history of headache and stuttering. She was found to have right parietal CVA. Patient was intubated on 03/16 remains intubated and sedated. Chest x-ray showed COPD with ongoing interstitial opacities throughout both lungs. And opacity noted in the left retrocardiac area suspicious for pneumonia with some opacity in the right base that seems to be improving WBC count today is 7.7 hemoglobin 13.5 basic metabolic profile is normal, BUN is 40 creatinine 0.83 Patient was seen today on 03/18/2024, remains in ICU, intubated and mechanically ventilated, on assist-control rate of 20 tidal volume 400 FiO2 40% and PEEP of 5 ABG showed a pO2 of 134 pCO2 44 pH of 7.44. Based on ABG I recommended cutting down her FiO2 to 35% and decreased today down to 18. Patient is on vital HP at 10/35 she is also on propofol at 20 mcg/kg/min, heparin drip IV fluid 0.9 normal saline at 75 cc/h patient is receiving Zosyn empirically. She had fluid balance +1 L over the last 24 hours. WBC count is 8.7 hemoglobin 13.9 platelets are 144. Electrolytes are normal renal profile is normal with BUN of 33 creatinine 0.61 blood sugar is 204 chest x-ray is showing nonspecific interstitial infiltrates and a patchy left retrocardiac opacity. Seen today on 03/19/2024, patient remains in the ICU, intubated and mechanically ventilated, on assist-control rate of 18 tidal volume 400 FiO2 35% and PEEP of 5 ABG showed a pO2 of 96 pCO2 46 pH of 7.43 patient was taken off propofol yesterday, remains on propofol, and does not seem to follow any instructions, she opens her eyes, withdraws to pain, moves her left upper extremity withdraws to pain mostly. Patient remains on heparin, IV fluid 0.9 at 75 cc/h vital HP at 35/35. Remains on Solu-Medrol and on Zosyn. Patient to remain off propofol today, and no plans to place her back on propofol for now. Would like to get further assessment of her mental status as she seems to be not responding purposefully to any stimuli except withdraws to pain. Patient opens her eyes but does not follow any instructions. WBC is 7.0 hemoglobin 11, basic metabolic profile noted, potassium is a bit low at 3.1 but renal profile is normal. Patient was evaluated today on 03/20/2024, remains in the ICU, intubated and mechanically ventilated. Patient has been off propofol now for 2 days, opening eyes, wiggling toes, squeezing hands, but still not fully awake. And it takes a lot of repetition of instructions to make the patient understand or comprehend what she is being told. Patient remains extremely slow, she is on assist- control rate of 18 tidal volume 400 FiO2 35% PEEP of 5 ABG showed a pO2 of 76 pCO2 45 pH of 7.44. Chest x-ray showed slight worsening of her interstitial opacities bilaterally. Patient is on Zosyn.WBC count is 6.7 hemoglobin 9.6. Basic metabolic profile is normal renal profile is normal. Sputum cultures are nondiagnostic showed mostly normal rubin Patient was evaluated today on 03/21/2024, patient remains in the ICU, intubated and mechanically ventilated, on assist-control rate of 18 tidal volume 400 FiO2 35% PEEP of 5 ABG showed a pO2 of 83 pCO2 45 pH of 7.44 patient remains off propofol, she is arousable she is awake, follows simple instructions cannot use her right upper extremity seems to be paralyzed. Related to her acute CVA involving the left parietal area. Patient remains on heparin, on IV fluid at 75 cc/h vital AF at 55/55, patient is also on Solu-Medrol and Zosyn. Family is noted at bedside, patient is the best I have seen her today as far as her mental status is concerned, she seems to be more awake, more appropriate, and feels to follow instructions quite well. Hence I recommended a trial of pressure support of 10 and CPAP, and if tolerated I plan to proceed with further weaning and possibly extubationChest x-ray showed COPD with similar diffuse bilateral interstitial patchy opacities patient is on antibiotics for presumptive aspiration pneumonia WBC count is 11.3 hemoglobin is 10, Basic metabolic profile is normal renal profile is normal Patient was seen today on 03/22/2024, patient remains in the ICU, she was extubated yesterday, extubated to BiPAP, today she was placed on 4 L nasal cannula, patient is doing better tolerating extubation so far quite well. She was on 03/21/40% on BiPAP now on 4 L nasal cannula she seems to be very appropriate, follows simple instructions. Chest x-ray continues to show nonspecific interstitial infiltrates/edema hence I gave her a dose of Lasix 20 mg IV push cut down her IV fluid to KVO, cut down her Solu-Medrol to 40 mg IV push every 12 hours. Her CODE STATUS has been changed to DNR. Patient remains on heparin but this will be transition to Eliquis today remains on Zosyn for presumptive aspiration. WBC count is 12.9 hemoglobin is 11.6 electrolytes are normal BUN is 32 creatinine 0.49. Objective - Vital Signs Vital signs: Vital Signs Temp 97.7 F 03/22/24 12:00 Pulse 71 03/22/24 12:00 Resp 33 H 03/22/24 12:00 BP 114/68 03/22/24 12:00 Pulse Ox 98 03/22/24 11:00 FiO2 40 03/22/24 08:00 Intake & Output 03/21/24 03/22/24 03/22/24 18:59 06:59 18:59 Intake Total 1065 1258.666 405 Output Total 725 605 835 Balance 340 653.666 -430 Weight 73.8 kg 74.4 kg Intake: IV 900 1025 405 Piperacillin-Tazobactam 3 200 100 .375 gm In Sodium Chloride 0.9% 100 ml @ 25 mls/hr IVPB Q8H [facility] Rx#: [id number] Sodium Chloride 0.9% 1, 900 825 305 000 ml @ 10 mls/hr IV . Q24H [facility] Rx#:[id number] Intake, IV Titration 233.666 Amount Heparin Sod,Pork in 0.45% 233.666 NaCl 25,000 unit In 0.45 % NaCl 1 250ml.bag @ 18 UNITS/KG/HR 11.538 mls/hr IV .[id number] [facility] Rx#: [id number] Tube Feeding 165 Output: Urine 725 605 835 Other: Voiding Method Indwelling Catheter Indwelling Catheter Indwelling Catheter ABP, PAP, CO, CI - Last Documented Arterial Blood Pressure 133/51 - Exam physical exam revealed a 73-year-old female nasal cannula, not in distress Head exam is unremarkable. No scleral icterus or corneal arcus noted. Neck is without jugular venous distension, thyromegaly, or carotid bruits. Lungs symmetrical chest expansion, minimal crackles at the bases no rhonchi no wheezes Cardiac exam distant S1-S2, no S3 gallop, no murmur. Abdominal exam reveals soft nontender no megaly no rebound no guarding Extremities no clubbing edema or cyanosis. Examination of the skin showed no specific rashes Neurologically, opens eyes follows instructions seems to be appropriate however she has weakness in her right upper extremity Psychiatric: Normal mood and affect, seems to have normal mental status difficulty moving her right upper extremity seems to be paralyzed. - Labs CBC & Chem 7: 03/22/24 04:45 03/22/24 04:45 Labs: Abnormal Lab Results - Last 24 Hours (Table) 03/21/24 03/21/24 03/22/24 Range/Units 18:17 23:44 04:45 WBC (3.8-10.6) k/uL MCHC (31.0-37.0) g/dL APTT (22.0-30.0) sec Sodium 136 L (137-145) mmol/L Chloride 108 H (98-107) mmol/L BUN 32 H (7-17) mg/dL Creatinine 0.49 L (0.52-1.04) mg/dL Glucose 157 H (74-99) mg/dL POC Glucose (mg/dL) 153 H 170 H (70-110) mg/dL Calcium 7.8 L (8.4-10.2) mg/dL 03/22/24 03/22/24 03/22/24 Range/Units 04:45 05:00 05:52 WBC 12.9 H (3.8-10.6) k/uL MCHC 29.7 L (31.0-37.0) g/dL APTT 69.5 H (22.0-30.0) sec Sodium (137-145) mmol/L Chloride (98-107) mmol/L BUN (7-17) mg/dL Creatinine (0.52-1.04) mg/dL Glucose (74-99) mg/dL POC Glucose (mg/dL) 133 H (70-110) mg/dL Calcium (8.4-10.2) mg/dL 03/22/24 03/22/24 Range/Units 06:00 11:35 WBC (3.8-10.6) k/uL MCHC (31.0-37.0) g/dL APTT (22.0-30.0) sec Sodium (137-145) mmol/L Chloride (98-107) mmol/L BUN (7-17) mg/dL Creatinine (0.52-1.04) mg/dL Glucose (74-99) mg/dL POC Glucose (mg/dL) 126 H 158 H (70-110) mg/dL Calcium (8.4-10.2) mg/dL Assessment and Plan Assessment: Impression: Acute CVA, 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 mostly involving the right upper extremity Acute on chronic hypoxic and hypercapnic respiratory failure requiring intubation and mechanical ventilation, patient has underlying COPD patient was extubated on 03/21/2024 History of COPD remains on bronchodilators Paroxysmal atrial fibrillation change heparin to Eliquis Possible chronic hypoxic and hypercapnic respiratory failure Tobacco dependence syndrome, Severe pulmonary hypertension related to chronic obstructive lung disease and chronic hypoxia Abnormal troponins no evidence of acute ST segment changes Hypertension Dyslipidemia Recommendation: Continue to monitor in the ICU for 1 more day Change heparin to Eliquis IV fluid to KVO Gentle diuresis Continue aspirin Continue bronchodilators and antibiotics Continue GI DVT prophylaxis Avoid narcotics and sedatives Will continue to follow Time with Patient: Less than 30
--- NOTE | 2024-03-22 14:33 | P.PN ---
Subjective Progress Note Date: 03/22/24 Principal diagnosis: Reason for follow-up is pneumonia Patient is a 73-year-old female with a past medical history significant for COPD hypertension hyperlipidemia patient was brought into the hospital for evaluation of mental status changes and was being worked up for stroke did have worsening of respiratory status concerning for aspiration prompted this consultation. Patient did have worsening of her respiratory status got intubated on 03/16/2024 On today's evaluation that is 03/22/2024, patient did not have any fever and denies any chills, patient is breathing comfortably on 4 L nasal oxygen, patient not a good consult historian no vomiting or diarrhea reported by the nursing staff. Patient white count is 12.8, creatinine 0.49 Objective - Vital Signs Vital signs: Vital Signs Temp 97.7 F 03/22/24 12:00 Pulse 71 03/22/24 12:00 Resp 33 H 03/22/24 12:00 BP 114/68 03/22/24 12:00 Pulse Ox 98 03/22/24 11:00 FiO2 40 03/22/24 08:00 Intake & Output 03/21/24 03/22/24 03/22/24 18:59 06:59 18:59 Intake Total 1065 1258.666 405 Output Total 725 605 835 Balance 340 653.666 -430 Weight 73.8 kg 74.4 kg Intake: IV 900 1025 405 Piperacillin-Tazobactam 3 200 100 .375 gm In Sodium Chloride 0.9% 100 ml @ 25 mls/hr IVPB Q8H [facility] Rx#: [id number] Sodium Chloride 0.9% 1, 900 825 305 000 ml @ 10 mls/hr IV . Q24H [facility] Rx#:[id number] Intake, IV Titration 233.666 Amount Heparin Sod,Pork in 0.45% 233.666 NaCl 25,000 unit In 0.45 % NaCl 1 250ml.bag @ 18 UNITS/KG/HR 11.538 mls/hr IV .[id number] [facility] Rx#: [id number] Tube Feeding 165 Output: Urine 725 605 835 Other: Voiding Method Indwelling Catheter Indwelling Catheter Indwelling Catheter ABP, PAP, CO, CI - Last Documented Arterial Blood Pressure 133/51 - Exam GENERAL DESCRIPTION: An elderly female lying in bed in no distress RESPIRATORY SYSTEM: Unlabored breathing , decreased breath sounds at bases HEART: S1 S2 regular rate and rhythm , ABDOMEN: Soft , no tenderness EXTREMITIES: No edema feet - Labs CBC & Chem 7: 03/22/24 04:45 03/22/24 04:45 Labs: Abnormal Lab Results - Last 24 Hours (Table) 03/21/24 03/21/24 03/22/24 Range/Units 18:17 23:44 04:45 WBC (3.8-10.6) k/uL MCHC (31.0-37.0) g/dL APTT (22.0-30.0) sec Sodium 136 L (137-145) mmol/L Chloride 108 H (98-107) mmol/L BUN 32 H (7-17) mg/dL Creatinine 0.49 L (0.52-1.04) mg/dL Glucose 157 H (74-99) mg/dL POC Glucose (mg/dL) 153 H 170 H (70-110) mg/dL Calcium 7.8 L (8.4-10.2) mg/dL 03/22/24 03/22/24 03/22/24 Range/Units 04:45 05:00 05:52 WBC 12.9 H (3.8-10.6) k/uL MCHC 29.7 L (31.0-37.0) g/dL APTT 69.5 H (22.0-30.0) sec Sodium (137-145) mmol/L Chloride (98-107) mmol/L BUN (7-17) mg/dL Creatinine (0.52-1.04) mg/dL Glucose (74-99) mg/dL POC Glucose (mg/dL) 133 H (70-110) mg/dL Calcium (8.4-10.2) mg/dL 03/22/24 03/22/24 Range/Units 06:00 11:35 WBC (3.8-10.6) k/uL MCHC (31.0-37.0) g/dL APTT (22.0-30.0) sec Sodium (137-145) mmol/L Chloride (98-107) mmol/L BUN (7-17) mg/dL Creatinine (0.52-1.04) mg/dL Glucose (74-99) mg/dL POC Glucose (mg/dL) 126 H 158 H (70-110) mg/dL Calcium (8.4-10.2) mg/dL Assessment and Plan (1) Aspiration pneumonia Current Visit: Yes Status: Acute Code(s): J69.0 - PNEUMONITIS DUE TO INHALATION OF FOOD AND VOMIT SNOMED Code(s): 468417174 (2) Leukocytosis Current Visit: Yes Status: Acute Code(s): D72.829 - ELEVATED WHITE BLOOD CELL COUNT, UNSPECIFIED SNOMED Code(s): 413023655 Plan: 1patient with worsening respiratory status and this patient initially brought into the hospital with slurred speech and being worked up for a CVA with worsening of respiratory status requiring BiPAP and a question of possible aspiration. 2patient did have CT angiogram of the chest shows consolidation concerning for pneumonia possible aspiration repeat CT of the brain concerning for subacute infarct with some progression neurology is following the patient 3patient did have worsening of respiratory status requiring intubation sputum culture has been obtained which are so far negative patient subsequently has been extubated 4patient is afebrile white count slightly up likely due to steroids as evidence of any worsening infection patient will be treated with Zosyn and monitor clinical course closely Son at the bedside question answered Dictation was produced using [employer] dictation software. please excuse any grammatical, word or spelling errors. Time with Patient: Less than 30
[2024-03-22 17:39] LABS: Glucose,Whole Blood 185 mg/dL (70-110)
[2024-03-22] MEDS: methylPREDNISolone SOD SUCCI 40 MG/ML 1 ML VIAL IV SCH (20:17)
[2024-03-22 23:42] LABS: Glucose,Whole Blood 130 mg/dL (70-110)
[2024-03-23 05:29] LABS: Glucose,Whole Blood 142 mg/dL (70-110)
[2024-03-23 05:44] LABS: HCT 40.9 % (34.0-46.0); HGB 12.4 gm/dL (11.4-16.0); Hypochromasia Marked; MCH 25.9 pg (25.0-35.0); MCHC 30.4 g/dL (31.0-37.0); Mean Platelet Volume 7.9; Platelet Count 241 k/uL (150-450); RBC 4.81 m/uL (3.80-5.40); RDW 15.7 % (11.5-15.5); WBC 14.8 k/uL (3.8-10.6)
[2024-03-23 05:55] LABS: African American GFR (CKD) >90 (>60 ml/min/1.73 sqM); Anion Gap -2 mmol/L; Blood Urea Nitrogen 30 mg/dL (7-17); Calcium 7.6 mg/dL (8.4-10.2); Carbon Dioxide 33 mmol/L (22-30); Chloride 104 mmol/L (98-107); Glucose 149 mg/dL (74-99); Non-African American GFR(CKD) >90 (>60 ml/min/1.73 sqM); Potassium 4.3 mmol/L (3.5-5.1); Sodium 135 mmol/L (137-145)
--- NOTE | 2024-03-23 09:32 | P.PN ---
Subjective Progress Note Date: 03/23/24 Mirtha Ponce is a 73-year-old female patient who initially presented to her PCP with complaints of slurring of speech patient was directed to come to ER for further evaluation. At this time patient is in bed sleeping not following commands or answering questions. Family at bedside history obtained through them and medical records. According to family patient was found to be having slurred speech patient did not want to come to ER at that time so was taken to PCP. Per family patient is a heavy smoker but denies any alcohol or drug use. Denies any recent illness. Additional medical history includes COPD, hypertension. Head CT completed showing right parietal lobe acute/subacute CVA. EKG completed showing sinus rhythm. Chest x-ray completed showing cardiomegaly with pulmonary vascular congestion correlate with serum BNP COPD changes. Lab work revealing troponin 0.379, 0.429 and 0.436, white blood cell 5.7, hemoglobin 15.4 creatinine 0.56 bun 14. At this time neurology services have been consulted MRI of the brain has been ordered CTA of the carotids ordered. Will order 2D echo and consult cardiology services. Due to patient's increasing altered mental status changes and concerns for respiratory status we will consult pulmonary services. Patient's BNP also elevated at 6490 will give 1 dose of IV Lasix. Current vital signs temp 97.9, heart rate 96, respiratory rate 18, blood pressure 100/59 with a pulse ox of 95% on nonrebreather. On 03/13/2024 patient was seen and examined on the medical floor she is alert and oriented x 3 in no apparent distress, she has a low-grade fever of 99.4 pulse 108 respiration 22 blood pressure 123/61 pulse ox 91% on 6 L nasal cannula, she has cough, with minimal sputum production she denies any chest pain or shortness of breath no nausea or vomiting no abdominal pain no diarrhea and no urinary symptoms. At this time will keep patient n.p.o. for possible aspiration, will start IV Zosyn and repeat chest x-ray, infectious disease con sultation was added, will continue with IV heparin due to elevated troponin levels, awaiting cardiology input. Neurology consult reviewed. On 03/14/2024 patient remains lethargic in the intensive care unit. Patient was placed on BiPAP. Patient also started on IV Zosyn for concerns of aspiration pneumonia patient not following commands at this time recommendations for possible Dobbhoff placement in order to administer oral medications. Neurology services are following MRI has been ordered but cannot be performed while patient is on BiPAP and heparin. Critical care services following infectious disease, cardiology and neurology services following. Current vital signs temp 98.1, heart rate 96, respiratory rate 27, blood pressure 119/69 with a pulse ox of 96% on BiPAP with an FiO2 of 45%. Family at bedside all questions answered On 03/15/2024 patient was seen and examined in the intensive care unit, she is not responsive at this time she is maintained on BiPAP, vital examination r eveals a temperature of 97.9 pulse 89 respiration 24 blood pressure 110/62 pulse ox 99% on FiO2 45% White blood count is 8.7 hemoglobin 13.8 platelet count 249 arterial blood gas revealed a pH of 7.24 pCO2 95% PaO2 96%, BUN 43 creatinine 0.69. Patient is followed by neurology, infectious disease, cardiology and pulmonary critical care, she remains on IV heparin. CT scan of the brain, was repeated yesterday and reveals multiple subacute infarcts no acute bleed or mass effect, chest x-r ay done this morning reveals diffuse interstitial infiltrates. Prognosis is guarded. On 03/16/2024 patient remains in the intensive care unit ABGs continued to decline despite BiPAP. Plans for intubation today per critical care.. Family at bedside. Plan discussed with family and nursing staff. Patient remains on IV Zosyn and IV Cardizem. Prognosis remains guarded. Neurology, infectious disease, cardiology and critical care services are all following. On 03/17/2024 patient was seen and examined in the intensive care unit, she is intubated sedated maintained on mechanical ventilation, assist control rate of 20 FiO2 40% with a PEEP of 5, she is maintained on IV antibiotic Zosyn and IV Solu-Medrol 60 mg every 6 hours. White blood count is 7.7 hemoglobin 13.5 platelet count 169 BUN 40 creatinine 0.83, patient is still maintained on IV heparin. Will continue to follow closely On 03/18/2024 patient remains in the intensive care unit intubated and sedated on mechanical ventilation with an FiO2 of 40%. Patient remains on IV antibiotics Zosyn. Patient remains on IV heparin drip. WBC 8.7, hemoglobin 13.9 creatinine 0.61 bun 33 multiple consults following On 03/19/2024 patient remains in the intensive care unit. Sedation has been stopped per critical care will assess mentation. Current vital signs temp 98.2, heart rate 75, respiratory rate 20, blood pressure 117/66 with pulse ox of 96% on mechanical ventilation with an FiO2 of 35%. White blood cell 7.0 hemoglobin 11.0 creatinine 0.51 bun 27 potassium low at 3.1 this to be replaced per protocol. Multiple consults following On 03/20/2024 patient remains in the intensive care unit. On mechanical ventilation. Sedation remains off. Chest x-ray completed showing COPD with slight worsening in the diffuse interstitial and patchy opacitiesThat has been increasing over the past few days 4. History of coronary artery disease. Current vital signs temp 98.2, heart rate 80, respiratory rate 19, blood pressure 121/68 with a pulse ox of 95% on mechanical ventilation with an FiO2 of 35% On 03/21/2024 patient remains in the intensive care unit today patient is awake following commands on mechanical ventilation sedation remains off. Per critical care will attempt extubation today. Patient had follow-up CT yesterday per neurology services anticipate patient will need MRI once extubated and stable. Current vital signs temp 98.9, heart rate 77, respiratory rate 19, blood pressure 100/57 on mechanical ventilation at FiO2 of 35% On 03/22/2024 patient was seen and examined in the ICU, she is alert and oriented x 3 in no apparent distress, she is off the ventilator and is maintained on oxygen 4 L via nasal cannula, she is responsive and answering questions by yes or no, there is no fever or chills no headache or dizziness no chest pain no shortness of breath no cough no nausea or vomiting no abdominal pain no diarrhea and no urinary symptoms. Patient had a recent stroke, repeat swallow evaluation is scheduled for Sunday. On 03/23/2024 patient is alert and oriented x 3 patient has been extubated. Patient remains in the ICU. MRI has been ordered. Current vital signs temp 98.2, heart rate 68, respiratory rate 21, blood pressure 109/61 with a pulse ox of 121/43. Pulse ox 98% on 3 L. At this time patient denies chest pain or shortness of breath. Patient denies nausea vomiting or diarrhea. Patient denies any urinary burning or frequency Objective - Vital Signs Vital signs: Vital Signs Temp 98.2 F 03/23/24 08:00 Pulse 71 03/23/24 09:00 Resp 24 03/23/24 09:00 BP 103/58 03/23/24 09:00 Pulse Ox 97 03/23/24 09:00 FiO2 40 03/22/24 08:00 Intake & Output 03/22/24 03/23/24 03/23/24 18:59 06:59 18:59 Intake Total 505 240 60 Output Total 1785 655 205 Balance -1280 -415 -145 Weight 73.4 kg Intake: IV 505 240 60 Piperacillin-Tazobactam 3 100 .375 gm In Sodium Chloride 0.9% 100 ml @ 25 mls/hr IVPB Q8H [facility] Rx#: [id number] Sodium Chloride 0.9% 1, 405 240 60 000 ml @ 10 mls/hr IV . Q24H [facility] Rx#:[id number] Output: Urine 1785 655 205 Other: Voiding Method Indwelling Catheter Indwelling Catheter ABP, PAP, CO, CI - Last Documented Arterial Blood Pressure 132/50 - Exam Head normocephalic Neck supple Lungs clear to auscultation bilaterally no wheezing or crackles Heart regular rate and rhythm S1-S2, no rub or gallop Abdomen is soft nontender nondistended positive bowel sounds no hepatosplenomegaly Extremities no edema Neuro patient is unresponsive - Labs CBC & Chem 7: 03/23/24 04:55 03/23/24 04:55 Labs: Abnormal Lab Results - Last 24 Hours (Table) 03/22/24 03/22/24 03/22/24 Range/Units 11:35 17:38 23:41 WBC (3.8-10.6) k/uL MCHC (31.0-37.0) g/dL RDW (11.5-15.5) % Sodium (137-145) mmol/L Carbon Dioxide (22-30) mmol/L BUN (7-17) mg/dL Glucose (74-99) mg/dL POC Glucose (mg/dL) 158 H 185 H 130 H (70-110) mg/dL Calcium (8.4-10.2) mg/dL 03/23/24 03/23/24 03/23/24 Range/Units 04:55 04:55 05:28 WBC 14.8 H (3.8-10.6) k/uL MCHC 30.4 L (31.0-37.0) g/dL RDW 15.7 H (11.5-15.5) % Sodium 135 L (137-145) mmol/L Carbon Dioxide 33 H (22-30) mmol/L BUN 30 H (7-17) mg/dL Glucose 149 H (74-99) mg/dL POC Glucose (mg/dL) 142 H (70-110) mg/dL Calcium 7.6 L (8.4-10.2) mg/dL Assessment and Plan Assessment: 1. Slurred speech and altered mental status changes likely secondary from CVA 2. Acute CHF exacerbation 3. Elevated troponins 4. Ongoing nicotine dependence greater than 1 pack/day 5. History of COPD 6. History of essential hypertension 7. Concerns of aspiration pneumonia patient started on IV Zosyn infectious disease service is consulted 8. Acute on chronic hypoxic and hypercapnic respiratory failure requiring intubation and mechanical ventilation. Patient has been extubated 03/21/2024 Neurology, cardiology and pulmonary services consulted Patient remains on IV Zosyn Remains in the intensive care unit MRI of the brain has been ordered Patient has been transition to oral anticoagulation Repeat labs ordered PT and OT services consulted
[2024-03-23 12:31] LABS: Glucose,Whole Blood 121 mg/dL (70-110)
--- NOTE | 2024-03-23 12:45 | P.PN ---
Subjective Progress Note Date: 03/23/24 Principal diagnosis: Acute CVA This is a 73-year-old female patient, a chronic smoker smokes around 1.5 packs of cigarettes on a daily basis, known to have COPD, nevertheless, does not utilize any form of respiratory medications or inhalers on outpatient basis. Denies having any home O2. Most of the information was obtained from the son at the bedside who also happens to be a poor historian. The patient came into the hospital because of slurred speech and she was not following commands and she was altered. The patient had no fever. No headaches. No neck stiffness. CAT scan of the head showed a right parietal lobe acute/subacute infarcts. She was in normal sinus rhythm. At the same time, the patient was found to have elevated troponins of 0.3, 0.4 and 0.4 respectively x 3. The white cell count was at 5.7 with a hemoglobin 15.4 and the patient had a normal creatinine of 0.56 with a BUN of 14. Neurology was involved in her case and the patient was given a CTA of the brain that showed no evidence of any dissection of the cervical and the vertebral arteries and there was no evidence of any significant stenosis in the carotids or in the intracranial arteries. There was however an area of atelectasis in the left upper lobe and this is based on the partial visualization of the lung windows done on the CAT scan of the head and neck. The patient is quite hypoxic and she is currently on 5 L of oxygen by nasal cannula with pulse ox 92%. Based on those findings, pulmonary consultation was requested. Her proBNP level is 6490. She is currently on IV heparin based on elevated troponins. She is also on aspirin. Cardiology is also on the case. Echocardiogram was done and the patient was found to have a normal LV function, severe RV dilatation and evidence of severe pulmonary hypertension. On 03/16/2024, the patient remains quite unresponsive. Remains on BiPAP. Barely responsive to painful stimulation. Mental status is significantly diminished. She remains on a BiPAP pressure of 12/5 with an FiO2 of 40%. Generated tidal volumes noted of 200 cc. The blood gas from today showed a pH of 7.14 with a pCO2 of above 98 and pO2 of 101. Based on that, I do lengthy discussion with the family and recommended intubation mechanical ventilation while the patient's stroke evolves further. The chest x-ray from today shows COPD with diffuse inc reased interstitial infiltrates bilaterally. This could be fluid versus interstitial pneumonia and the patient remains on IV Zosyn. The patient's cardiac rhythm is sinus. No further episodes of atrial fibrillation has been noted and the patient remains on IV heparin. IV fluids are in the form of normal saline at rate of 75 cc an hour. She remains on bronchodilators. She remains on systemic steroids. A follow-up CAT scan of the brain was done yesterday and it showed evidence of subacute multiple infarcts and there was no evidence of any bleeding. Based on all this, the patient was intubated and currently is on assist-control mode of mechanical ventilation at rate of 24, tidal volume of 400 with a PEEP of 5 and FiO2 of 100%. Postintubation blood gas showed a pH of 7.29 with a pCO2 of 76 and pO2 of 374. FiO2 will be gradually weaned. Triple-lumen catheter and a arterial line was also inserted. Enteral feeding will be also initiated. She remains on aspirin. She remains on sta tins. Patient was seen today , patient was intubated yesterday, and she is now on mechanical ventilation. Patient developed worsening hypoxic and hypercapnic respiratory failure required intubation mechanical ventilation. Patient is now on assist-control rate of 20 tidal volume 400 FiO2 40% and PEEP of 5 ABG showed a pO2 of 93 pCO2 45 pH of 7.47 hence no changes were made in her present ventilator settings. Patient is on vital AF at 10 cc/h she is also on propofol at 50 mcg/kg/min, amiodarone 0.5 mg/min heparin drip IV fluid 0.9 normal saline at 75 cc/h Solu-Medrol 60 every 6 Zosyn empirically for possible aspiration. Patient had a presentation of 2 weeks history of headache and stuttering. She was found to have right parietal CVA. Patient was intubated on 03/16 remains intubated and sedated. Chest x-ray showed COPD with ongoing interstitial opacities throughout both lungs. And opacity noted in the left retrocardiac area suspicious for pneumonia with some opacity in the right base that seems to be improving WBC count today is 7.7 hemoglobin 13.5 basic metabolic profile is normal, BUN is 40 creatinine 0.83 Patient was seen today on 03/18/2024, remains in ICU, intubated and mechanically ventilated, on assist-control rate of 20 tidal volume 400 FiO2 40% and PEEP of 5 ABG showed a pO2 of 134 pCO2 44 pH of 7.44. Based on ABG I recommended cutting down her FiO2 to 35% and decreased today down to 18. Patient is on vital HP at 10/35 she is also on propofol at 20 mcg/kg/min, heparin drip IV fluid 0.9 normal saline at 75 cc/h patient is receiving Zosyn empirically. She had fluid balance +1 L over the last 24 hours. WBC count is 8.7 hemoglobin 13.9 platelets are 144. Electrolytes are normal renal profile is normal with BUN of 33 creatinine 0.61 blood sugar is 204 chest x-ray is showing nonspecific interstitial infiltrates and a patchy left retrocardiac opacity. Seen today on 03/19/2024, patient remains in the ICU, intubated and mechanically ventilated, on assist-control rate of 18 tidal volume 400 FiO2 35% and PEEP of 5 ABG showed a pO2 of 96 pCO2 46 pH of 7.43 patient was taken off propofol yesterday, remains on propofol, and does not seem to follow any instructions, she opens her eyes, withdraws to pain, moves her left upper extremity withdraws to pain mostly. Patient remains on heparin, IV fluid 0.9 at 75 cc/h vital HP at 35/35. Remains on Solu-Medrol and on Zosyn. Patient to remain off propofol today, and no plans to place her back on propofol for now. Would like to get further assessment of her mental status as she seems to be not responding purposefully to any stimuli except withdraws to pain. Patient opens her eyes but does not follow any instructions. WBC is 7.0 hemoglobin 11, basic metabolic profile noted, potassium is a bit low at 3.1 but renal profile is normal. Patient was evaluated today on 03/20/2024, remains in the ICU, intubated and mechanically ventilated. Patient has been off propofol now for 2 days, opening eyes, wiggling toes, squeezing hands, but still not fully awake. And it takes a lot of repetition of instructions to make the patient understand or comprehend what she is being told. Patient remains extremely slow, she is on assist- control rate of 18 tidal volume 400 FiO2 35% PEEP of 5 ABG showed a pO2 of 76 pCO2 45 pH of 7.44. Chest x-ray showed slight worsening of her interstitial opacities bilaterally. Patient is on Zosyn.WBC count is 6.7 hemoglobin 9.6. Basic metabolic profile is normal renal profile is normal. Sputum cultures are nondiagnostic showed mostly normal rubin Patient was evaluated today on 03/21/2024, patient remains in the ICU, intubated and mechanically ventilated, on assist-control rate of 18 tidal volume 400 FiO2 35% PEEP of 5 ABG showed a pO2 of 83 pCO2 45 pH of 7.44 patient remains off propofol, she is arousable she is awake, follows simple instructions cannot use her right upper extremity seems to be paralyzed. Related to her acute CVA involving the left parietal area. Patient remains on heparin, on IV fluid at 75 cc/h vital AF at 55/55, patient is also on Solu-Medrol and Zosyn. Family is noted at bedside, patient is the best I have seen her today as far as her mental status is concerned, she seems to be more awake, more appropriate, and feels to follow instructions quite well. Hence I recommended a trial of pressure support of 10 and CPAP, and if tolerated I plan to proceed with further weaning and possibly extubationChest x-ray showed COPD with similar diffuse bilateral interstitial patchy opacities patient is on antibiotics for presumptive aspiration pneumonia WBC count is 11.3 hemoglobin is 10, Basic metabolic profile is normal renal profile is normal Patient was seen today on 03/22/2024, patient remains in the ICU, she was extubated yesterday, extubated to BiPAP, today she was placed on 4 L nasal cannula, patient is doing better tolerating extubation so far quite well. She was on 03/21/40% on BiPAP now on 4 L nasal cannula she seems to be very appropriate, follows simple instructions. Chest x-ray continues to show nonspecific interstitial infiltrates/edema hence I gave her a dose of Lasix 20 mg IV push cut down her IV fluid to KVO, cut down her Solu-Medrol to 40 mg IV push every 12 hours. Her CODE STATUS has been changed to DNR. Patient remains on heparin but this will be transition to Eliquis today remains on Zosyn for presumptive aspiration. WBC count is 12.9 hemoglobin is 11.6 electrolytes are normal BUN is 32 creatinine 0.49. He was seen today on 03/23/2024, remains in the ICU, patient continues to tolerate extubation well over the last couple of days. She seems to be more and more awake, follows simple instructions, continues to have right upper extremity weakness/paralysis. Speech seems to be also affected/patient has garbled speech. Today the plan is to discontinue her lines, establish a peripheral line, continue antibiotics for now, and I plan to transfer the patient out of the ICU to a regular medical floor/monitored bed. Remains on Eliquis and she remains on Zosyn WBC count is 14.8 hemoglobin is 12.4 electrolytes are normal renal profile is normal no chest x-ray was done today, patient is maintaining excellent saturation on 4 L nasal cannula Objective - Vital Signs Vital signs: Vital Signs Temp 98.2 F 03/23/24 08:00 Pulse 67 03/23/24 12:00 Resp 34 H 03/23/24 12:00 BP 113/71 03/23/24 12:00 Pulse Ox 97 03/23/24 12:00 FiO2 40 03/22/24 08:00 Intake & Output 03/22/24 03/23/24 03/23/24 18:59 06:59 18:59 Intake Total 505 240 90 Output Total 1785 655 345 Balance -1280 -415 -255 Weight 73.4 kg Intake: IV 505 240 90 Piperacillin-Tazobactam 3 100 .375 gm In Sodium Chloride 0.9% 100 ml @ 25 mls/hr IVPB Q8H [facility] Rx#: [id number] Sodium Chloride 0.9% 1, 405 240 90 000 ml @ 10 mls/hr IV . Q24H ROSALINE Rx#:[id number] Output: Urine 1785 655 345 Other: Voiding Method Indwelling Catheter Indwelling Catheter Indwelling Catheter # Voids 1 ABP, PAP, CO, CI - Last Documented Arterial Blood Pressure 132/50 - Exam physical exam revealed a 73-year-old female 4 L nasal cannula, not in distress Head exam is unremarkable. No scleral icterus or corneal arcus noted. Neck is without jugular venous distension, thyromegaly, or carotid bruits. Lungs symmetrical chest expansion, diminished breath sounds at the bases no rhonchi no wheezes Cardiac exam distant S1-S2, no S3 gallop, no murmur. Abdominal exam reveals soft nontender no megaly no rebound no guarding Extremities no clubbing edema or cyanosis. Examination of the skin showed no specific rashes Neurologically, awake, follows all instructions, cannot move her right upper extremity, speech is garbled Psychiatric: Normal mood and affect, seems to have normal mental status - Labs CBC & Chem 7: 03/23/24 04:55 03/23/24 04:55 Labs: Abnormal Lab Results - Last 24 Hours (Table) 03/22/24 03/22/24 03/23/24 Range/Units 17:38 23:41 04:55 WBC 14.8 H (3.8-10.6) k/uL MCHC 30.4 L (31.0-37.0) g/dL RDW 15.7 H (11.5-15.5) % Sodium (137-145) mmol/L Carbon Dioxide (22-30) mmol/L BUN (7-17) mg/dL Glucose (74-99) mg/dL POC Glucose (mg/dL) 185 H 130 H (70-110) mg/dL Calcium (8.4-10.2) mg/dL 03/23/24 03/23/24 03/23/24 Range/Units 04:55 05:28 12:29 WBC (3.8-10.6) k/uL MCHC (31.0-37.0) g/dL RDW (11.5-15.5) % Sodium 135 L (137-145) mmol/L Carbon Dioxide 33 H (22-30) mmol/L BUN 30 H (7-17) mg/dL Glucose 149 H (74-99) mg/dL POC Glucose (mg/dL) 142 H 121 H (70-110) mg/dL Calcium 7.6 L (8.4-10.2) mg/dL Assessment and Plan Assessment: Impression: Acute CVA, 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 mostly involving the right upper extremity Acute on chronic hypoxic and hypercapnic respiratory failure requiring intubation and mechanical ventilation, patient has underlying COPD patient was extubated on 03/21/2024 History of COPD remains on bronchodilators Paroxysmal atrial fibrillation change heparin to Eliquis Possible chronic hypoxic and hypercapnic respiratory failure Tobacco dependence syndrome, Severe pulmonary hypertension related to chronic obstructive lung disease and chronic hypoxia Abnormal troponins no evidence of acute ST segment changes Hypertension Dyslipidemia Recommendation: Transfer patient to [facility]. Continue Eliquis and continue Zosyn for now Discontinue central lines, establish peripheral IV access Intermittent gentle diuresis Continue aspirin Continue bronchodilators Continue GI DVT prophylaxis Avoid narcotics and sedatives Will continue to follow Time with Patient: Less than 30
[2024-03-23 18:02] LABS: Glucose,Whole Blood 124 mg/dL (70-110)
--- NOTE | 2024-03-23 20:41 | PN ---
PROGRESS NOTE HISTORY OF PRESENT ILLNESS: Mirtha is a 73-year-old lady with paroxysmal atrial fibrillation, CVA. She is doing much better and has been downgraded to selective care. Does not have any new symptoms. Stable hemodynamically. PHYSICAL EXAMINATION: VITAL SIGNS: Heart rate is 68 beats per minute, blood pressure is 110/61, respiratory rate 18, O2 saturation is 97% on 3 L. CHEST: Reveals good air entry bilaterally. HEART: Reveals first and second heart sounds. No gallop. EXTREMITIES: Do not reveal any edema. LABORATORY STUDIES: Show a hemoglobin of 12.4, platelet count is 240. Potassium is 4.3, creatinine is 0.59. ASSESSMENT: 1. Paroxysmal atrial fibrillation. 2. Cerebrovascular accident. PLAN: The patient is doing much better. She is on Eliquis. I will continue the same. MMODL / IJN: [id number] /
[2024-03-23 23:59] LABS: Glucose,Whole Blood 128 mg/dL (70-110)
[2024-03-24 06:28] LABS: Glucose,Whole Blood 142 mg/dL (70-110)
[2024-03-24] MEDS: INSULIN ASPART (NovoLOG) 100 UNIT/ML VIAL SQ SCH (07:39)
[2024-03-24 07:57] LABS: Basophils % (A) 0 %; Eosinophils % (A) 0 %; HCT 44.2 % (34.0-46.0); HGB 13.3 gm/dL (11.4-16.0); Hypochromasia Marked; Lymphocytes # (A) 0.4 k/uL (1.0-4.8); Lymphocytes % (A) 3 %; MCH 25.5 pg (25.0-35.0); Monocytes # (A) 0.6 k/uL (0-1.0); Monocytes % (A) 5 %; Neutrophils # (A) 9.9 k/uL (1.3-7.7); Neutrophils % (A) 90 %; Platelet Count 279 k/uL (150-450); RBC 5.19 m/uL (3.80-5.40); RDW 15.5 % (11.5-15.5)
[2024-03-24 08:23] LABS: ALT 28 U/L (4-34); AST 25 U/L (14-36); African American GFR (CKD) >90 (>60 ml/min/1.73 sqM); Albumin 2.5 g/dL (3.5-5.0); Alkaline Phosphatase 40 U/L (38-126); Anion Gap 0 mmol/L; Blood Urea Nitrogen 26 mg/dL (7-17); Calcium 7.8 mg/dL (8.4-10.2); Carbon Dioxide 35 mmol/L (22-30); Chloride 99 mmol/L (98-107); Glucose 140 mg/dL (74-99); Non-African American GFR(CKD) >90 (>60 ml/min/1.73 sqM); Potassium 4.7 mmol/L (3.5-5.1); Sodium 134 mmol/L (137-145); Total Protein 4.8 g/dL (6.3-8.2)
--- NOTE | 2024-03-24 08:37 | P.PN ---
Subjective Progress Note Date: 03/23/24 Principal diagnosis: Reason for follow-up is pneumonia Patient is a 73-year-old female with a past medical history significant for COPD hypertension hyperlipidemia patient was brought into the hospital for evaluation of mental status changes and was being worked up for stroke did have worsening of respiratory status concerning for aspiration prompted this consultation. Patient did have worsening of her respiratory status got intubated on 03/16/2024 On today's evaluation that is 03/23/2024, Patient is afebrile patient is currently on 3 L nasal cannula oxygen and breathing comfortably patient seen to be slightly more awake and alert and did respond with her head but overall not a good historian no vomiting or diarrhea has been reported. Patient white count slightly up today to 14.8 creatinine 0.59 sputum culture have been negative Objective - Vital Signs Vital signs: Vital Signs Temp 98.2 F 03/23/24 08:00 Pulse 71 03/23/24 09:00 Resp 24 03/23/24 09:00 BP 103/58 03/23/24 09:00 Pulse Ox 97 03/23/24 09:00 FiO2 40 03/22/24 08:00 Intake & Output 03/22/24 03/23/24 03/23/24 18:59 06:59 18:59 Intake Total 505 240 60 Output Total 1785 655 255 Balance -1440 415 -195 Weight 73.4 kg Intake: IV 505 240 60 Piperacillin-Tazobactam 3 100 .375 gm In Sodium Chloride 0.9% 100 ml @ 25 mls/hr IVPB Q8H [facility]AL[facility] Rx#: [id number] Sodium Chloride 0.9% 1, 405 240 60 000 ml @ 10 mls/hr IV . Q24H ROSALINE Rx#:[id number] Output: Urine 1785 655 255 Other: Voiding Method Indwelling Catheter Indwelling Catheter # Voids 1 ABP, PAP, CO, CI - Last Documented Arterial Blood Pressure 132/50 - Exam GENERAL DESCRIPTION: An elderly female lying in bed in no distress RESPIRATORY SYSTEM: Unlabored breathing , decreased breath sounds at bases HEART: S1 S2 regular rate and rhythm , ABDOMEN: Soft , no tenderness EXTREMITIES: No edema feet - Labs CBC & Chem 7: 03/24/24 06:56 03/24/24 06:56 Labs: Abnormal Lab Results - Last 24 Hours (Table) 12/11/0603/22/24 03/22/24 Range/Units 11:35 17:38 23:41 WBC (3.8-10.6) k/uL MCHC (31.0-37.0) g/dL RDW (11.5-15.5) % Sodium (137-145) mmol/L Carbon Dioxide (22-30) mmol/L BUN (7-17) mg/dL Glucose (74-99) mg/dL POC Glucose (mg/dL) 158 H 185 H 130 H (70-110) mg/dL Calcium (8.4-10.2) mg/dL 03/23/24 03/23/24 03/23/24 Range/Units 04:55 04:55 05:28 WBC 14.8 H (3.8-10.6) k/uL MCHC 30.4 L (31.0-37.0) g/dL RDW 15.7 H (11.5-15.5) % Sodium 135 L (137-145) mmol/L Carbon Dioxide 33 H (22-30) mmol/L BUN 30 H (7-17) mg/dL Glucose 149 H (74-99) mg/dL POC Glucose (mg/dL) 142 H (70-110) mg/dL Calcium 7.6 L (8.4-10.2) mg/dL Assessment and Plan (1) Aspiration pneumonia Current Visit: Yes Status: Acute Code(s): J69.0 - PNEUMONITIS DUE TO INHALATION OF FOOD AND VOMIT SNOMED Code(s): 598780151 (2) Leukocytosis Current Visit: Yes Status: Acute Code(s): D72.829 - ELEVATED WHITE BLOOD KRISTIN L COUNT, UNSPECIFIED SNOMED Code(s): 172183300 Plan: 1patient with worsening respiratory status and this patient initially brought into the hospital with slurred speech and being worked up for a CVA with worsening of respiratory status requiring BiPAP and a question of possible aspiration. 2patient did have CT angiogram of the chest shows consolidation concerning for pneumonia possible aspiration repeat CT of the brain concerning for subacute infarct with some progression neurology is following the patient 3patient did have worsening of respiratory status requiring intubation sputum culture has been obtained which are so far negative patient subsequently has been extubated 4patient is afebrile white count slightly up likely due to steroids and that will be monitored closely for now patient will be treated with Zosyn and monitor clinical course closely Dictation was produced using [employer] dictation software. please excuse any grammatical, word or spelling errors. Time with Patient: Less than 30
--- NOTE | 2024-03-24 09:16 | P.PN ---
Subjective Progress Note Date: 03/24/24 Mirtha Ponce is a 73-year-old female patient who initially presented to her PCP with complaints of slurring of speech patient was directed to come to ER for further evaluation. At this time patient is in bed sleeping not following commands or answering questions. Family at bedside history obtained through them and medical records. According to family patient was found to be having slurred speech patient did not want to come to ER at that time so was taken to PCP. Per family patient is a heavy smoker but denies any alcohol or drug use. Denies any recent illness. Additional medical history includes COPD, hypertension. Head CT completed showing right parietal lobe acute/subacute CVA. EKG completed showing sinus rhythm. Chest x-ray completed showing cardiomegaly with pulmonary vascular congestion correlate with serum BNP COPD changes. Lab work revealing troponin 0.379, 0.429 and 0.436, white blood cell 5.7, hemoglobin 15.4 creatinine 0.56 bun 14. At this time neurology services have been consulted MRI of the brain has been ordered CTA of the carotids ordered. Will order 2D echo and consult cardiology services. Due to patient's increasing altered mental status changes and concerns for respiratory status we will consult pulmonary services. Patient's BNP also elevated at 6490 will give 1 dose of IV Lasix. Current vital signs temp 97.9, heart rate 96, respiratory rate 18, blood pressure 100/59 with a pulse ox of 95% on nonrebreather. On 03/13/2024 patient was seen and examined on the medical floor she is alert and oriented x 3 in no apparent distress, she has a low-grade fever of 99.4 pulse 108 respiration 22 blood pressure 123/61 pulse ox 91% on 6 L nasal cannula, she has cough, with minimal sputum production she denies any chest pain or shortness of breath no nausea or vomiting no abdominal pain no diarrhea and no urinary symptoms. At this time will keep patient n.p.o. for possible aspiration, will start IV Zosyn and repeat chest x-ray, infectious disease con sultation was added, will continue with IV heparin due to elevated troponin levels, awaiting cardiology input. Neurology consult reviewed. On 03/14/2024 patient remains lethargic in the intensive care unit. Patient was placed on BiPAP. Patient also started on IV Zosyn for concerns of aspiration pneumonia patient not following commands at this time recommendations for possible Dobbhoff placement in order to administer oral medications. Neurology services are following MRI has been ordered but cannot be performed while patient is on BiPAP and heparin. Critical care services following infectious disease, cardiology and neurology services following. Current vital signs temp 98.1, heart rate 96, respiratory rate 27, blood pressure 119/69 with a pulse ox of 96% on BiPAP with an FiO2 of 45%. Family at bedside all questions answered On 03/15/2024 patient was seen and examined in the intensive care unit, she is not responsive at this time she is maintained on BiPAP, vital examination r eveals a temperature of 97.9 pulse 89 respiration 24 blood pressure 110/62 pulse ox 99% on FiO2 45% White blood count is 8.7 hemoglobin 13.8 platelet count 249 arterial blood gas revealed a pH of 7.24 pCO2 95% PaO2 96%, BUN 43 creatinine 0.69. Patient is followed by neurology, infectious disease, cardiology and pulmonary critical care, she remains on IV heparin. CT scan of the brain, was repeated yesterday and reveals multiple subacute infarcts no acute bleed or mass effect, chest x-r ay done this morning reveals diffuse interstitial infiltrates. Prognosis is guarded. On 03/16/2024 patient remains in the intensive care unit ABGs continued to decline despite BiPAP. Plans for intubation today per critical care.. Family at bedside. Plan discussed with family and nursing staff. Patient remains on IV Zosyn and IV Cardizem. Prognosis remains guarded. Neurology, infectious disease, cardiology and critical care services are all following. On 03/17/2024 patient was seen and examined in the intensive care unit, she is intubated sedated maintained on mechanical ventilation, assist control rate of 20 FiO2 40% with a PEEP of 5, she is maintained on IV antibiotic Zosyn and IV Solu-Medrol 60 mg every 6 hours. White blood count is 7.7 hemoglobin 13.5 platelet count 169 BUN 40 creatinine 0.83, patient is still maintained on IV heparin. Will continue to follow closely On 03/18/2024 patient remains in the intensive care unit intubated and sedated on mechanical ventilation with an FiO2 of 40%. Patient remains on IV antibiotics Zosyn. Patient remains on IV heparin drip. WBC 8.7, hemoglobin 13.9 creatinine 0.61 bun 33 multiple consults following On 03/19/2024 patient remains in the intensive care unit. Sedation has been stopped per critical care will assess mentation. Current vital signs temp 98.2, heart rate 75, respiratory rate 20, blood pressure 117/66 with pulse ox of 96% on mechanical ventilation with an FiO2 of 35%. White blood cell 7.0 hemoglobin 11.0 creatinine 0.51 bun 27 potassium low at 3.1 this to be replaced per protocol. Multiple consults following On 03/20/2024 patient remains in the intensive care unit. On mechanical ventilation. Sedation remains off. Chest x-ray completed showing COPD with slight worsening in the diffuse interstitial and patchy opacitiesThat has been increasing over the past few days 4. History of coronary artery disease. Current vital signs temp 98.2, heart rate 80, respiratory rate 19, blood pressure 121/68 with a pulse ox of 95% on mechanical ventilation with an FiO2 of 35% On 03/21/2024 patient remains in the intensive care unit today patient is awake following commands on mechanical ventilation sedation remains off. Per critical care will attempt extubation today. Patient had follow-up CT yesterday per neurology services anticipate patient will need MRI once extubated and stable. Current vital signs temp 98.9, heart rate 77, respiratory rate 19, blood pressure 100/57 on mechanical ventilation at FiO2 of 35% On 03/22/2024 patient was seen and examined in the ICU, she is alert and oriented x 3 in no apparent distress, she is off the ventilator and is maintained on oxygen 4 L via nasal cannula, she is responsive and answering questions by yes or no, there is no fever or chills no headache or dizziness no chest pain no shortness of breath no cough no nausea or vomiting no abdominal pain no diarrhea and no urinary symptoms. Patient had a recent stroke, repeat swallow evaluation is scheduled for Sunday. On 03/23/2024 patient is alert and oriented x 3 patient has been extubated. Patient remains in the ICU. MRI has been ordered. Current vital signs temp 98.2, heart rate 68, respiratory rate 21, blood pressure 109/61 with a pulse ox of 121/43. Pulse ox 98% on 3 L. At this time patient denies chest pain or shortness of breath. Patient denies nausea vomiting or diarrhea. Patient denies any urinary burning or frequency. On 03/24/2024 patient was seen and examined on the telemetry floor she is alert and oriented in no apparent distress, she is answering few questions by yes or no, there is no fever or chills no headache or dizziness no chest pain no shortness of breath no cough no nausea or vomiting no abdominal pain no diarrhea and no urinary symptoms. Plan is to proceed with speech therapy consult for swallowing evaluation, also to proceed with MRI of the brain, physical therapy and Occupational Therapy are consulted. Will follow closely. Objective - Vital Signs Vital signs: Vital Signs Temp 97.8 F 03/23/24 20:22 Pulse 70 03/24/24 08:36 Resp 16 03/24/24 03:18 BP 99/65 03/24/24 03:18 Pulse Ox 98 03/24/24 03:18 FiO2 40 03/22/24 08:00 Intake & Output 03/23/24 03/24/24 03/24/24 18:59 06:59 18:59 Intake Total 100 Output Total 1080 750 Balance -980 -750 Weight 70.5 kg Intake: IV 100 Sodium Chloride 0.9% 1, 100 000 ml @ 10 mls/hr IV . Q24H [facility] Rx#:[id number] Output: Urine 1080 750 Uretheral (Luevano) 650 350 Other: Voiding Method Indwelling Catheter Indwelling Catheter # Voids 1 ABP, PAP, CO, CI - Last Documented Arterial Blood Pressure 132/50 - Exam Head normocephalic Neck supple Lungs clear to auscultation bilaterally no wheezing or crackles Heart regular rate and rhythm S1-S2, no rub or gallop Abdomen is soft nontender nondistended positive bowel sounds no hepatosplenomegaly Extremities no edema Neuro patient is unresponsive - Labs CBC & Chem 7: 03/24/24 06:56 03/24/24 06:56 Labs: Abnormal Lab Results - Last 24 Hours (Table) 03/23/24 03/23/24 03/23/24 Range/Units 12:29 18:01 23:57 WBC (3.8-10.6) k/uL MCHC (31.0-37.0) g/dL Neutrophils # (1.3-7.7) k/uL Lymphocytes # (1.0-4.8) k/uL Sodium (137-145) mmol/L Carbon Dioxide (22-30) mmol/L BUN (7-17) mg/dL Glucose (74-99) mg/dL POC Glucose (mg/dL) 121 H 124 H 128 H (70-110) mg/dL Calcium (8.4-10.2) mg/dL Total Protein (6.3-8.2) g/dL Albumin (3.5-5.0) g/dL 03/24/24 03/24/24 03/24/24 Range/Units 06:24 06:56 06:56 WBC 11.0 H (3.8-10.6) k/uL MCHC 30.0 L (31.0-37.0) g/dL Neutrophils # 9.9 H (1.3-7.7) k/uL Lymphocytes # 0.4 L (1.0-4.8) k/uL Sodium 134 L (137-145) mmol/L Carbon Dioxide 35 H (22-30) mmol/L BUN 26 H (7-17) mg/dL Glucose 140 H (74-99) mg/dL POC Glucose (mg/dL) 142 H (70-110) mg/dL Calcium 7.8 L (8.4-10.2) mg/dL Total Protein 4.8 L (6.3-8.2) g/dL Albumin 2.5 L (3.5-5.0) g/dL Assessment and Plan Assessment: 1. Slurred speech and altered mental status changes likely secondary from CVA 2. Acute CHF exacerbation 3. Elevated troponins 4. Ongoing nicotine dependence greater than 1 pack/day 5. History of COPD 6. History of essential hypertension 7. Concerns of aspiration pneumonia patient started on IV Zosyn infectious disease service is consulted 8. Acute on chronic hypoxic and hypercapnic respiratory failure requiring intubation and mechanical ventilation. Patient has been extubated 03/21/2024 Neurology, cardiology and pulmonary services consulted Patient remains on IV Zosyn Remains in the intensive care unit MRI of the brain has been ordered Patient has been transition to oral anticoagulation Repeat labs ordered PT and OT services consulted
[2024-03-24 11:15] LABS: Glucose,Whole Blood 158 mg/dL (70-110)
--- NOTE | 2024-03-24 16:25 | P.PN ---
Subjective Progress Note Date: 03/24/24 Principal diagnosis: CVA. Patient was seen today , patient was intubated yesterday, and she is now on mechanical ventilation. Patient developed worsening hypoxic and hyp ercapnic respiratory failure required intubation mechanical ventilation. Patient is now on assist-control rate of 20 tidal volume 400 FiO2 40% and PEEP of 5 ABG showed a pO2 of 93 pCO2 45 pH of 7.47 hence no changes were made in her present ventilator settings. Patient is on vital AF at 10 cc/h she is also on propofol at 50 mcg/kg/min, amiodarone 0.5 mg/min heparin drip IV fluid 0.9 normal saline at 75 cc/h Solu-Medrol 60 every 6 Zosyn empirically for possible aspiration. Patient had a presentation of 2 weeks history of headache and stuttering. She was found to have right parietal CVA. Patient was intubated on 03/16 remains intubated and sedated. Chest x-ray showed COPD with ongoing int erstitial opacities throughout both lungs. And opacity noted in the left retrocardiac area suspicious for pneumonia with some opacity in the right base that seems to be improving WBC count today is 7.7 hemoglobin 13.5 basic metabolic profile is normal, BUN is 40 creatinine 0.83 Patient was seen today on 03/18/2024, remains in ICU, intubated and mechanically ventilated, on assist-control rate of 20 tidal volume 400 FiO2 40% and PEEP of 5 ABG showed a pO2 of 134 pCO2 44 pH of 7.44. Based on ABG I recommended cutting down her FiO2 to 35% and decreased today down to 18. Patient is on vital HP at 10/35 she is also on propofol at 20 mcg/kg/min, heparin drip IV fluid 0.9 normal saline at 75 cc/h patient is receiving Zosyn empirically. She had fluid balance +1 L over the last 24 hours. WBC count is 8.7 hemoglobin 13.9 platelets are 144. Electrolytes are normal renal profile is normal with BUN of 33 creatinine 0.61 blood sugar is 204 chest x-ray is showing nonspecific interstitial infiltr ates and a patchy left retrocardiac opacity. Seen today on 03/19/2024, patient remains in the ICU, intubated and mechanically ventilated, on assist-control rate of 18 tidal volume 400 FiO2 35% and PEEP of 5 ABG showed a pO2 of 96 pCO2 46 pH of 7.43 patient was taken off propofol yesterday, remains on propofol, and does not seem to follow any instructions, she opens her eyes, withdraws to pain, moves her left upper extremity withdraws to pain mostly. Patient remains on heparin, IV fluid 0.9 at 75 cc/h vital HP at 35/35. Remains on Solu-Medrol and on Zosyn. Patient to remain off propofol today, and no plans to place her back on propofol for now. Would like to get further assessment of her mental status as she seems to be not responding purposefully to any stimuli except withdraws to pain. Patient opens her eyes but does not follow any instructions. WBC is 7.0 hemoglobin 11, basic metabolic profile noted, potassium is a bit low at 3.1 but renal profile is normal. Patient was evaluated today on 03/20/2024, remains in the ICU, intubated and mechanically ventilated. Patient has been off propofol now for 2 days, opening eyes, wiggling toes, squeezing hands, but still not fully awake. And it takes a lot of repetition of instructions to make the patient understand or comprehend what she is being told. Patient remains extremely slow, she is on assist- control rate of 18 tidal volume 400 FiO2 35% PEEP of 5 ABG showed a pO2 of 76 pCO2 45 pH of 7.44. Chest x-ray showed slight worsening of her interstitial opacities bilaterally. Patient is on Zosyn.WBC count is 6.7 hemoglobin 9.6. Basic metabolic profile is normal renal profile is normal. Sputum cultures are nondiagnostic showed mostly normal rubin Patient was evaluated today on 03/21/2024, patient remains in the ICU, intubated and mechanically ventilated, on assist-control rate of 18 tidal volume 400 FiO2 35% PEEP of 5 ABG showed a pO2 of 83 pCO2 45 pH of 7.44 patient remains off propofol, she is arousable she is awake, follows simple instructions cannot use her right upper extremity seems to be paralyzed. Related to her acute CVA involving the left parietal area. Patient remains on heparin, on IV fluid at 75 cc/h vital AF at 55/55, patient is also on Solu-Medrol and Zosyn. Family is noted at bedside, patient is the best I have seen her today as far as her mental status is concerned, she seems to be more awake, more appropriate, and feels to follow instructions quite well. Hence I recommended a trial of pressure support of 10 and CPAP, and if tolerated I plan to proceed with further weaning and possibly extubationChest x-ray showed COPD with similar diffuse bilateral interstitial patchy opacities patient is on antibiotics for presumptive aspiration pneumonia WBC count is 11.3 hemoglobin is 10, Basic metabolic profile is normal renal profile is normal Patient was seen today on 03/22/2024, patient remains in the ICU, she was extubated yesterday, extubated to BiPAP, today she was placed on 4 L nasal cannula, patient is doing better tolerating extubation so far quite well. She was on 03/21/40% on BiPAP now on 4 L nasal cannula she seems to be very appropriate, follows simple instructions. Chest x-ray continues to show nonspecific interstitial infiltrates/edema hence I gave her a dose of Lasix 20 mg IV push cut down her IV fluid to KVO, cut down her Solu-Medrol to 40 mg IV push every 12 hours. Her CODE STATUS has been changed to DNR. Patient remains on heparin but this will be transition to Eliquis today remains on Zosyn for presumptive aspiration. WBC count is 12.9 hemoglobin is 11.6 electrolytes are normal BUN is 32 creatinine 0.49. He was seen today on 03/23/2024, remains in the ICU, patient continues to tolerate extubation well over the last couple of days. She seems to be more and more awake, follows simple instructions, continues to have right upper extremity weakness/paralysis. Speech seems to be also affected/patient has garbled speech. Today the plan is to discontinue her lines, establish a peripheral line, continue antibiotics for now, and I plan to transfer the patient out of the ICU to a regular medical floor/monitored bed. Remains on Eliquis and she remains on Zosyn WBC count is 14.8 hemoglobin is 12.4 electrolytes are normal renal profile is normal no chest x-ray was done today, patient is maintaining excellent saturation on 4 L nasal cannula Progress note dated March 24, 2024. 73-year-old female who was admitted back on March 11, 2024. She has been here in the hospital for 13 days. She is getting saline at 100 cc an hour, and nasal O2 at 3 L by nasal cannula. The BiPAP device is in the room, but it is unclear to me whether or not the patient used it last night. Settings include 03/21, with 40%. The patient appears to be relatively comfortable, and in no acute distress. Current labs are good a white count 11, hemoglobin 13.3, h ematocrit 44.2, and a platelet count of 279,000. Sodium 134, potassium 4.7, chlorides 99, CO2 35, BUN 26, creatinine 0.59. Glucose is 158. Albumin is 2.5. Objective - Vital Signs Vital signs: Vital Signs Temp 97.4 F L 03/24/24 08:00 Pulse 70 03/24/24 16:07 Resp 16 03/24/24 13:56 BP 111/61 03/24/24 12:00 Pulse Ox 95 03/24/24 12:00 FiO2 40 03/22/24 08:00 Intake & Output 03/23/24 03/24/24 03/24/24 18:59 06:59 18:59 Intake Total 100 Output Total 1080 750 Balance -980 -750 Weight 70.5 kg 70.5 kg Intake: IV 100 Sodium Chloride 0.9% 1, 100 000 ml @ 10 mls/hr IV . Q24H [facility] Rx#:[id number] Output: Urine 1080 750 Uretheral ([place]) 650 350 Other: Voiding Method Indwelling Catheter Indwelling Catheter External Catheter # Voids 1 ABP, PAP, CO, CI - Last Documented Arterial Blood Pressure 132/50 - Exam No acute distress, oriented 3. No respiratory distress. The patient continues on 3 L. HEENT examination is grossly unremarkable. Mucous membranes are moist. No oral lesions. Neck supple. Full range of motion. No adenopathy thyromegaly or neck vein distention. Cardiovascular examination reveals regular rhythm rate. S1-S2 normal. No S3 or S4. No discernible murmur noted. Lungs reveal clear breath sounds. Breath sounds are equal bilaterally. No adventitious lung sounds including wheezes rhonchi or crackles. Abdomen soft bowel sounds are heard. No masses or tenderness. Extremities are intact. No cyanosis clubbing or edema. No movement right upper extremity. Skin is without rash or lesion. Neurologic examination feels decreased movement right upper extremity. Speech is garbled. - Labs CBC & Chem 7: 03/24/24 06:56 03/24/24 06:56 Labs: Abnormal Lab Results - Last 24 Hours (Table) 03/23/24 03/23/24 03/24/24 Range/Units 18:01 23:57 06:24 WBC (3.8-10.6) k/uL MCHC (31.0-37.0) g/dL Neutrophils # (1.3-7.7) k/uL Lymphocytes # (1.0-4.8) k/uL Sodium (137-145) mmol/L Carbon Dioxide (22-30) mmol/L BUN (7-17) mg/dL Glucose (74-99) mg/dL POC Glucose (mg/dL) 124 H 128 H 142 H (70-110) mg/dL Calcium (8.4-10.2) mg/dL Total Protein (6.3-8.2) g/dL Albumin (3.5-5.0) g/dL 03/24/24 03/24/24 03/24/24 Range/Units 06:56 06:56 11:12 WBC 11.0 H (3.8-10.6) k/uL MCHC 30.0 L (31.0-37.0) g/dL Neutrophils # 9.9 H (1.3-7.7) k/uL Lymphocytes # 0.4 L (1.0-4.8) k/uL Sodium 134 L (137-145) mmol/L Carbon Dioxide 35 H (22-30) mmol/L BUN 26 H (7-17) mg/dL Glucose 140 H (74-99) mg/dL POC Glucose (mg/dL) 158 H (70-110) mg/dL Calcium 7.8 L (8.4-10.2) mg/dL Total Protein 4.8 L (6.3-8.2) g/dL Albumin 2.5 L (3.5-5.0) g/dL Assessment and Plan Assessment: 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 Acute on chronic hypoxemic and hypercapnic respiratory failure, S/P intubation and mechanical ventilation with successful extubation on March 21, 2024. History of COPD. Paroxysmal atrial fibrillation. Chronic hypoxemic and hypercapnic respiratory failure. Tobacco dependence syndrome. Severe pulmonary hypertension. History of hypertension. History of hyperlipidemia. Plan: Plan dated March 24, 2024. The patient appears to be relatively stable. The patient does have a small abrasion on the bridge of her nose, suggesting that she did wear the BiPAP last night. On examination, her lung mcgill are clear, and she is in normal sinus rhythm. She continues on saline at 100 cc an hour, nasal cannula 3 L. Labs, x- rays, medications are reviewed. We will continue to follow the patient, and make recommendations along the way. Time with Patient: Less than 30
--- NOTE | 2024-03-24 16:38 | P.PN ---
Subjective Progress Note Date: 03/24/24 I am following up with the patient and she continues to be confused. Is not communicative upon seeing her. Objective - Vital Signs Vital signs: Vital Signs Temp 97.4 F L 03/24/24 08:00 Pulse 70 03/24/24 16:07 Resp 16 03/24/24 13:56 BP 111/61 03/24/24 12:00 Pulse Ox 95 03/24/24 12:00 FiO2 40 03/22/24 08:00 Intake & Output 03/23/24 03/24/24 03/24/24 18:59 06:59 18:59 Intake Total 100 Output Total 1080 750 Balance -980 -750 Weight 70.5 kg 70.5 kg Intake: IV 100 Sodium Chloride 0.9% 1, 100 000 ml @ 10 mls/hr IV . Q24H [facility] Rx#:[id number] Output: Urine 1080 750 Uretheral ([place]ano) 650 350 Other: Voiding Method Indwelling Catheter Indwelling Catheter External Catheter # Voids 1 ABP, PAP, CO, CI - Last Documented Arterial Blood Pressure 132/50 - Exam General: Lying in bed and does not appear in acute distress.. Neuro: Very limited Patient is severely drowsy but is briefly awake both to voice. She is not verbalizing - Labs CBC & Chem 7: 03/24/24 06:56 03/24/24 06:56 Labs: Abnormal Lab Results - Last 24 Hours (Table) 03/23/24 03/23/24 03/24/24 Range/Units 18:01 23:57 06:24 WBC (3.8-10.6) k/uL MCHC (31.0-37.0) g/dL Neutrophils # (1.3-7.7) k/uL Lymphocytes # (1.0-4.8) k/uL Sodium (137-145) mmol/L Carbon Dioxide (22-30) mmol/L BUN (7-17) mg/dL Glucose (74-99) mg/dL POC Glucose (mg/dL) 124 H 128 H 142 H (70-110) mg/dL Calcium (8.4-10.2) mg/dL Total Protein (6.3-8.2) g/dL Albumin (3.5-5.0) g/dL 03/24/24 03/24/24 03/24/24 Range/Units 06:56 06:56 11:12 WBC 11.0 H (3.8-10.6) k/uL MCHC 30.0 L (31.0-37.0) g/dL Neutrophils # 9.9 H (1.3-7.7) k/uL Lymphocytes # 0.4 L (1.0-4.8) k/uL Sodium 134 L (137-145) mmol/L Carbon Dioxide 35 H (22-30) mmol/L BUN 26 H (7-17) mg/dL Glucose 140 H (74-99) mg/dL POC Glucose (mg/dL) 158 H (70-110) mg/dL Calcium 7.8 L (8.4-10.2) mg/dL Total Protein 4.8 L (6.3-8.2) g/dL Albumin 2.5 L (3.5-5.0) g/dL Assessment and Plan Assessment: Ms. Ponce is a 73-year-old female with history of hypertension, COPD, and bilateral cataracts who was brought to the hospital on March 11 with some speech abnormalities and lethargy. She was noted on CT scan to have a right parietal as well as left precentral gyrus infarct. I personally reviewed it and felt over the left fronto/parietal region) Acute ischemic stroke (right parietal as well as left precentral gyrus infarct on CT per my colleague and per reading radiologist bilateral hemsiphere but I felt over the left fronto/parietal/occipital region and precentral region) and appears embolic (cardioembolic, especially with Atrial fibrillation). On examination today after 48-hour off sedation she is moving the left side but no movement of the right upper extremity and wiggles the right toes. She continues to be drowsy but is awake able to voice. Respiratory distress and is intubated on ventilator Paroxysmal atrial fibrillation Severe pulmonary hypertension Hypertension Hyperlipidemia History of COPD Tobacco dependence Plan: Repeat CT head: No acute intracranial hemorrhage or midline shift. No significant change from most recent prior CT. I reviewed CT and patient has 2 s mall subacute stroke over the left hemisphere. Patient is on Eliquis 5 mg twice daily as well as aspirin 325 daily Pursue MRI of the brain. Patient is on Lipitor 40 mg daily. Continue neurochecks Cardiac monitoring PT OT and HOT BOX OPERATOR are consulted. For DVT prophylaxis: On Eliquis. Time with Patient: Less than 30
--- NOTE | 2024-03-24 18:11 | CT ---
EXAMINATION TYPE: CT brain wo con CT DLP: 1172.4 mGycm, Automated exposure control for dose reduction was used. DATE OF EXAM: 03/24/2024 5:46 PM COMPARISON: CT head head 03/20/2024. CLINICAL INDICATION:Female, 73 years old with history of altered mental status., AMS TECHNIQUE: Brain: Axial CT images of the brain were obtained with coronal and sagittal reformats created and rev iewed. Contrast used: None. Oral contrast used: None. FINDINGS: Brain: Extra-axial spaces: No abnormal extra-axial fluid collections. Ventricular system: Dilatation in proportion to cerebral atrophy. Cerebral parenchyma: Cerebral atrophy. No acute intraparenchymal hemorrhage or mass effect. The skelton -white junction is well differentiated. Scattered hypoattenuating areas are seen within the white mat ter. There is redemonstrated encephalomalacia involving the left frontal and left parietal lobes unc hanged from CT in reference. Cerebellum: Unremarkable. Mass effect: No evidence of midline shift. Intracranial vasculature: Atherosclerotic calcifications of the intracranial vessels. Soft tissues: Normal. Calvarium/osseous structures: No depressed skull fracture. Paranasal sinuses and mastoid air cells: Mild scattered paranasal sinus disease. Visualized orbits: Bilateral aphakia IMPRESSION: 1. No acute intracranial process. 2. 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 3. Nonspecific white matter changes likely secondary to chronic microangiopathy. [facility], , 03/24/2024 6:08 PM
[2024-03-24 18:14] LABS: Glucose,Whole Blood 191 mg/dL (70-110)
--- NOTE | 2024-03-24 19:03 | P.PN ---
Subjective Patient is resting comfortably in bed. No new symptoms. Heart rates are reasonably well-controlled blood pressure is normal On examination blood pressure is normal Heart rates are in the 60s and 70s Breath sounds are clear Heart sounds are regular, normal No murmurs Impression Paroxysmal atrial fibrillation CVA Plan Continue amiodarone 200 mg twice daily for 2 weeks Thereafter reduced to 200 mg p.o. daily Discussed this with the nurse Continue Eliquis 5 mg twice daily Will sign off at this point and the patient may be discharged from a cardiovascular standpoint whenever deemed appropriate by internal medicine Objective - Vital Signs Vital signs: Vital Signs Temp 97.8 F 03/23/24 20:22 Pulse 70 03/24/24 08:36 Resp 16 03/24/24 03:18 BP 99/65 03/24/24 03:18 Pulse Ox 98 03/24/24 03:18 FiO2 40 03/22/24 08:00 Intake & Output 03/23/24 03/24/24 03/24/24 18:59 06:59 18:59 Intake Total 100 Output Total 1080 750 Balance -980 -750 Weight 70.5 kg Intake: IV 100 Sodium Chloride 0.9% 1, 100 000 ml @ 10 mls/hr IV . Q24H [facility] Rx#:[id number] Output: Urine 1080 750 Uretheral (Luevano) 650 350 Other: Voiding Method Indwelling Catheter Indwelling Catheter # Voids 1 ABP, PAP, CO, CI - Last Documented Arterial Blood Pressure 132/50 - Labs CBC & Chem 7: 03/24/24 06:56 03/24/24 06:56 Labs: Abnormal Lab Results - Last 24 Hours (Table) 03/23/24 03/23/24 03/23/24 Range/Units 12:29 18:01 23:57 WBC (3.8-10.6) k/uL MCHC (31.0-37.0) g/dL Neutrophils # (1.3-7.7) k/uL Lymphocytes # (1.0-4.8) k/uL Sodium (137-145) mmol/L Carbon Dioxide (22-30) mmol/L BUN (7-17) mg/dL Glucose (74-99) mg/dL POC Glucose (mg/dL) 121 H 124 H 128 H (70-110) mg/dL Calcium (8.4-10.2) mg/dL Total Protein (6.3-8.2) g/dL Albumin (3.5-5.0) g/dL 03/24/24 03/24/24 03/24/24 Range/Units 06:24 06:56 06:56 WBC 11.0 H (3.8-10.6) k/uL MCHC 30.0 L (31.0-37.0) g/dL Neutrophils # 9.9 H (1.3-7.7) k/uL Lymphocytes # 0.4 L (1.0-4.8) k/uL Sodium 134 L (137-145) mmol/L Carbon Dioxide 35 H (22-30) mmol/L BUN 26 H (7-17) mg/dL Glucose 140 H (74-99) mg/dL POC Glucose (mg/dL) 142 H (70-110) mg/dL Calcium 7.8 L (8.4-10.2) mg/dL Total Protein 4.8 L (6.3-8.2) g/dL Albumin 2.5 L (3.5-5.0) g/dL
[2024-03-25 00:24] LABS: Glucose,Whole Blood 182 mg/dL (70-110)
[2024-03-25 06:09] LABS: Glucose,Whole Blood 170 mg/dL (70-110)
--- NOTE | 2024-03-25 08:52 | P.PN ---
Subjective Progress Note Date: 03/24/24 Principal diagnosis: Reason for follow-up is pneumonia Patient is a 73-year-old female with a past medical history significant for COPD hypertension hyperlipidemia patient was brought into the hospital for evaluation of mental status changes and was being worked up for stroke did have worsening of respiratory status concerning for aspiration prompted this consultation. Patient did have worsening of her respiratory status got intubated on 03/16/2024 On today's evaluation that is 03/24/2024, patient has been afebrile, patient is breathing comfortably and is currently on 2 L nasal current oxygen patient slightly more awake not a bit good historian though no vomiting or diarrhea has been reported. The patient white count is 11,000, creatinine 0.59 Objective - Vital Signs Vital signs: Vital Signs Temp 97.4 F L 03/24/24 08:00 Pulse 70 03/24/24 12:08 Resp 16 03/24/24 08:00 BP 121/64 03/24/24 08:00 Pulse Ox 95 03/24/24 08:00 FiO2 40 03/22/24 08:00 Intake & Output 03/23/24 03/24/24 03/24/24 18:59 06:59 18:59 Intake Total 100 Output Total 1080 750 Balance -980 -750 Weight 70.5 kg 70.5 kg Intake: IV 100 Sodium Chloride 0.9% 1, 100 000 ml @ 10 mls/hr IV . Q24H [facility] Rx#:[id number] Output: Urine 1080 750 Uretheral (Luevano) 650 350 Other: Voiding Method Indwelling Catheter Indwelling Catheter External Catheter # Voids 1 ABP, PAP, CO, CI - Last Documented Arterial Blood Pressure 132/50 - Exam GENERAL DESCRIPTION: An elderly female lying in bed in no distress RESPIRATORY SYSTEM: Unlabored breathing , decreased breath sounds at bases HEART: S1 S2 regular rate and rhythm , ABDOMEN: Soft , no tenderness EXTREMITIES: No edema feet - Labs CBC & Chem 7: 03/24/24 06:56 03/24/24 06:56 Labs: Abnormal Lab Results - Last 24 Hours (Table) 03/23/24 03/23/24 03/23/24 Range/Units 12:29 18:01 23:57 WBC (3.8-10.6) k/uL MCHC (31.0-37.0) g/dL Neutrophils # (1.3-7.7) k/uL Lymphocytes # (1.0-4.8) k/uL Sodium (137-145) mmol/L Carbon Dioxide (22-30) mmol/L BUN (7-17) mg/dL Glucose (74-99) mg/dL POC Glucose (mg/dL) 121 H 124 H 128 H (70-110) mg/dL Calcium (8.4-10.2) mg/dL Total Protein (6.3-8.2) g/dL Albumin (3.5-5.0) g/dL 03/24/24 03/24/24 03/24/24 Range/Units 06:24 06:56 06:56 WBC 11.0 H (3.8-10.6) k/uL MCHC 30.0 L (31.0-37.0) g/dL Neutrophils # 9.9 H (1.3-7.7) k/uL Lymphocytes # 0.4 L (1.0-4.8) k/uL Sodium 134 L (137-145) mmol/L Carbon Dioxide 35 H (22-30) mmol/L BUN 26 H (7-17) mg/dL Glucose 140 H (74-99) mg/dL POC Glucose (mg/dL) 142 H (70-110) mg/dL Calcium 7.8 L (8.4-10.2) mg/dL Total Protein 4.8 L (6.3-8.2) g/dL Albumin 2.5 L (3.5-5.0) g/dL 03/24/24 Range/Units 11:12 WBC (3.8-10.6) k/uL MCHC (31.0-37.0) g/dL Neutrophils # (1.3-7.7) k/uL Lymphocytes # (1.0-4.8) k/uL Sodium (137-145) mmol/L Carbon Dioxide (22-30) mmol/L BUN (7-17) mg/dL Glucose (74-99) mg/dL POC Glucose (mg/dL) 158 H (70-110) mg/dL Calcium (8.4-10.2) mg/dL Total Protein (6.3-8.2) g/dL Albumin (3.5-5.0) g/dL Assessment and Plan (1) Aspiration pneumonia Current Visit: Yes Status: Acute Code(s): J69.0 - PNEUMONITIS DUE TO INHALATION OF FOOD AND VOMIT SNOMED Code(s): 277753539 (2) Leukocytosis Current Visit: Yes Status: Acute Code(s): D72.829 - ELEVATED WHITE BLOOD CELL COUNT, UNSPECIFIED SNOMED Code(s): 826470280 Plan: 1patient with worsening respiratory status and this patient initially brought into the hospital with slurred speech and being worked up for a CVA with worsening of respiratory status requiring BiPAP and a question of possible aspiration. 2patient did have CT angiogram of the chest shows consolidation concerning for pneumonia possible aspiration repeat CT of the brain concerning for subacute infarct with some progression neurology is following the patient 3patient did have worsening of respiratory status requiring intubation sputum culture has been obtained which are so far negative patient subsequently has been successfully extubated 4patient is afebrile white count slightly up likely due to steroids as evidence of any worsening infection patient currently treated with Zosyn and monitor clinical course closely Dictation was produced using [employer] dictation software. please excuse any grammatical, word or spelling errors. Time with Patient: Less than 30
--- NOTE | 2024-03-25 09:02 | P.PN ---
Subjective Progress Note Date: 03/25/24 Mirtha Ponce is a 73-year-old female patient who initially presented to her PCP with complaints of slurring of speech patient was directed to come to ER for further evaluation. At this time patient is in bed sleeping not following commands or answering questions. Family at bedside history obtained through them and medical records. According to family patient was found to be having slurred speech patient did not want to come to ER at that time so was taken to PCP. Per family patient is a heavy smoker but denies any alcohol or drug use. Denies any recent illness. Additional medical history includes COPD, hypertension. Head CT completed showing right parietal lobe acute/subacute CVA. EKG completed showing sinus rhythm. Chest x-ray completed showing cardiomegaly with pulmonary vascular congestion correlate with serum BNP COPD changes. Lab work revealing troponin 0.379, 0.429 and 0.436, white blood cell 5.7, hemoglobin 15.4 creatinine 0.56 bun 14. At this time neurology services have been consulted MRI of the brain has been ordered CTA of the carotids ordered. Will order 2D echo and consult cardiology services. Due to patient's increasing altered mental status changes and concerns for respiratory status we will consult pulmonary services. Patient's BNP also elevated at 6490 will give 1 dose of IV Lasix. Current vital signs temp 97.9, heart rate 96, respiratory rate 18, blood pressure 100/59 with a pulse ox of 95% on nonrebreather. On 03/13/2024 patient was seen and examined on the medical floor she is alert and oriented x 3 in no apparent distress, she has a low-grade fever of 99.4 pulse 108 respiration 22 blood pressure 123/61 pulse ox 91% on 6 L nasal cannula, she has cough, with minimal sputum production she denies any chest pain or shortness of breath no nausea or vomiting no abdominal pain no diarrhea and no urinary symptoms. At this time will keep patient n.p.o. for possible aspiration, will start IV Zosyn and repeat chest x-ray, infectious disease con sultation was added, will continue with IV heparin due to elevated troponin levels, awaiting cardiology input. Neurology consult reviewed. On 03/14/2024 patient remains lethargic in the intensive care unit. Patient was placed on BiPAP. Patient also started on IV Zosyn for concerns of aspiration pneumonia patient not following commands at this time recommendations for possible Dobbhoff placement in order to administer oral medications. Neurology services are following MRI has been ordered but cannot be performed while patient is on BiPAP and heparin. Critical care services following infectious disease, cardiology and neurology services following. Current vital signs temp 98.1, heart rate 96, respiratory rate 27, blood pressure 119/69 with a pulse ox of 96% on BiPAP with an FiO2 of 45%. Family at bedside all questions answered On 03/15/2024 patient was seen and examined in the intensive care unit, she is not responsive at this time she is maintained on BiPAP, vital examination r eveals a temperature of 97.9 pulse 89 respiration 24 blood pressure 110/62 pulse ox 99% on FiO2 45% White blood count is 8.7 hemoglobin 13.8 platelet count 249 arterial blood gas revealed a pH of 7.24 pCO2 95% PaO2 96%, BUN 43 creatinine 0.69. Patient is followed by neurology, infectious disease, cardiology and pulmonary critical care, she remains on IV heparin. CT scan of the brain, was repeated yesterday and reveals multiple subacute infarcts no acute bleed or mass effect, chest x-r ay done this morning reveals diffuse interstitial infiltrates. Prognosis is guarded. On 03/16/2024 patient remains in the intensive care unit ABGs continued to decline despite BiPAP. Plans for intubation today per critical care.. Family at bedside. Plan discussed with family and nursing staff. Patient remains on IV Zosyn and IV Cardizem. Prognosis remains guarded. Neurology, infectious disease, cardiology and critical care services are all following. On 03/17/2024 patient was seen and examined in the intensive care unit, she is intubated sedated maintained on mechanical ventilation, assist control rate of 20 FiO2 40% with a PEEP of 5, she is maintained on IV antibiotic Zosyn and IV Solu-Medrol 60 mg every 6 hours. White blood count is 7.7 hemoglobin 13.5 platelet count 169 BUN 40 creatinine 0.83, patient is still maintained on IV heparin. Will continue to follow closely On 03/18/2024 patient remains in the intensive care unit intubated and sedated on mechanical ventilation with an FiO2 of 40%. Patient remains on IV antibiotics Zosyn. Patient remains on IV heparin drip. WBC 8.7, hemoglobin 13.9 creatinine 0.61 bun 33 multiple consults following On 03/19/2024 patient remains in the intensive care unit. Sedation has been stopped per critical care will assess mentation. Current vital signs temp 98.2, heart rate 75, respiratory rate 20, blood pressure 117/66 with pulse ox of 96% on mechanical ventilation with an FiO2 of 35%. White blood cell 7.0 hemoglobin 11.0 creatinine 0.51 bun 27 potassium low at 3.1 this to be replaced per protocol. Multiple consults following On 03/20/2024 patient remains in the intensive care unit. On mechanical ventilation. Sedation remains off. Chest x-ray completed showing COPD with slight worsening in the diffuse interstitial and patchy opacitiesThat has been increasing over the past few days 4. History of coronary artery disease. Current vital signs temp 98.2, heart rate 80, respiratory rate 19, blood pressure 121/68 with a pulse ox of 95% on mechanical ventilation with an FiO2 of 35% On 03/21/2024 patient remains in the intensive care unit today patient is awake following commands on mechanical ventilation sedation remains off. Per critical care will attempt extubation today. Patient had follow-up CT yesterday per neurology services anticipate patient will need MRI once extubated and stable. Current vital signs temp 98.9, heart rate 77, respiratory rate 19, blood pressure 100/57 on mechanical ventilation at FiO2 of 35% On 03/22/2024 patient was seen and examined in the ICU, she is alert and oriented x 3 in no apparent distress, she is off the ventilator and is maintained on oxygen 4 L via nasal cannula, she is responsive and answering questions by yes or no, there is no fever or chills no headache or dizziness no chest pain no shortness of breath no cough no nausea or vomiting no abdominal pain no diarrhea and no urinary symptoms. Patient had a recent stroke, repeat swallow evaluation is scheduled for Sunday. On 03/23/2024 patient is alert and oriented x 3 patient has been extubated. Patient remains in the ICU. MRI has been ordered. Current vital signs temp 98.2, heart rate 68, respiratory rate 21, blood pressure 109/61 with a pulse ox of 121/43. Pulse ox 98% on 3 L. At this time patient denies chest pain or shortness of breath. Patient denies nausea vomiting or diarrhea. Patient denies any urinary burning or frequency. On 03/24/2024 patient was seen and examined on the telemetry floor she is alert and oriented in no apparent distress, she is answering few questions by yes or no, there is no fever or chills no headache or dizziness no chest pain no shortness of breath no cough no nausea or vomiting no abdominal pain no diarrhea and no urinary symptoms. Plan is to proceed with speech therapy consult for swallowing evaluation, also to proceed with MRI of the brain, physical therapy and Occupational Therapy are consulted. Will follow closely. On 03/25/2024 patient's alert remains confused. MRI of the brain has been ordered per neurology patient denies chest pain or shortness of breath. Patient denies nausea vomiting or diarrhea. Patient denies any urinary burning or frequency Objective - Vital Signs Vital signs: Vital Signs Temp 97.7 F 03/24/24 20:55 Pulse 68 03/25/24 08:56 Resp 14 03/25/24 03:53 BP 94/60 03/25/24 03:53 Pulse Ox 98 03/25/24 03:53 FiO2 40 03/22/24 08:00 Intake & Output 03/24/24 03/25/24 03/25/24 18:59 06:59 18:59 Intake Total 110 110 Output Total 2124 Balance 110 -2125 110 Weight 70.5 kg 70.5 kg Intake: Oral 110 110 Output: Urine 2124 Uretheral (Luevano) 2024 Other: Voiding Method External Catheter Indwelling Catheter ABP, PAP, CO, CI - Last Documented Arterial Blood Pressure 132/50 - Exam Head normocephalic Neck supple Lungs clear to auscultation bilaterally no wheezing or crackles Heart regular rate and rhythm S1-S2, no rub or gallop Abdomen is soft nontender nondistended positive bowel sounds no hepatosplenomegaly Extremities no edema Neuro patient is unresponsive - Labs CBC & Chem 7: 03/24/24 06:56 03/24/24 06:56 Labs: Abnormal Lab Results - Last 24 Hours (Table) 03/24/24 03/24/24 03/25/24 Range/Units 11:12 18:12 00:22 POC Glucose (mg/dL) 158 H 191 H 182 H (70-110) mg/dL 03/25/24 Range/Units 06:05 POC Glucose (mg/dL) 170 H (70-110) mg/dL Assessment and Plan Assessment: 1. Slurred speech and altered mental status changes likely secondary from CVA 2. Acute CHF exacerbation 3. Elevated troponins 4. Ongoing nicotine dependence greater than 1 pack/day 5. History of COPD 6. History of essential hypertension 7. Concerns of aspiration pneumonia patient started on IV Zosyn infectious disease service is consulted 8. Acute on chronic hypoxic and hypercapnic respiratory failure requiring intubation and mechanical ventilation. Patient has been extubated 03/21/2024 Neurology, cardiology and pulmonary services consulted Patient remains on IV Zosyn Remains in the intensive care unit MRI of the brain has been ordered Patient has been transition to oral anticoagulation Repeat labs ordered PT and OT services consulted
[2024-03-25 11:21] LABS: Glucose,Whole Blood 155 mg/dL (70-110)
--- NOTE | 2024-03-25 11:44 | P.PN ---
Subjective HISTORY OF PRESENT ILLNESS: Patient examined this morning at the bedside. Patient currently denies chest pain or pressure. Denies shortness of breath. Patient's blood pressures are soft with a systolic in the 90s. Telemetry reveals sinus mechanism. PHYSICAL EXAM: VITAL SIGNS: Reviewed. GENERAL: Well-developed in no acute distress. NECK: Supple. No JVD or thyromegaly LUNGS: Respirations even and unlabored. Lungs essentially clear to auscultation bilaterally. HEART: Regular rate and rhythm. S1 and S2 heard. EXTREMITIES: Normal range of motion. No clubbing or cyanosis. Peripheral pulses intact. No lower extremity edema ASSESSMENT: Acute CVA Hypotension Paroxysmal atrial fibrillation Hypertension Hyperlipidemia COPD Acute hypoxic respiratory failure requiring mechanical ventilation, since extubated Elevated troponins, type II [place], no evidence of acute coronary syndrome Nicotine dependence PLAN: Decrease amlodipine to 2.5 mg daily and change dosing to HS Decrease losartan to 50 mg daily Continue additional cardiac medications Continue telemetry monitoring Continue to monitor blood pressure Further recommendations pending patient course Nurse practitioner note has been reviewed by physician. Signing provider agrees with the documented findings, assessment, and plan of care documented by [employer]PER as a scribe. Objective - Vital Signs Vital signs: Vital Signs Temp 97.6 F 03/25/24 11:19 Pulse 62 03/25/24 11:19 Resp 14 03/25/24 11:19 BP 115/67 03/25/24 11:19 Pulse Ox 98 03/25/24 11:19 FiO2 40 03/22/24 08:00 Intake & Output 03/24/24 03/25/24 03/25/24 18:59 06:59 18:59 Intake Total 110 120 Output Total 2125 Balance 110 -2125 120 Weight 70.5 kg 70.5 kg Intake: IV 10 Invasive Line 6 10 Oral 110 110 Output: Urine 2124 Uretheral (Luevano) 2024 Other: Voiding Method External Catheter Indwelling Catheter Indwelling Catheter ABP, PAP, CO, CI - Last Documented Arterial Blood Pressure 132/50 - Labs CBC & Chem 7: 03/24/24 06:56 03/24/24 06:56 Labs: Abnormal Lab Results - Last 24 Hours (Table) 03/24/24 03/25/24 03/25/24 Range/Units 18:12 00:22 06:05 POC Glucose (mg/dL) 191 H 182 H 170 H (70-110) mg/dL 03/25/24 Range/Units 11:20 POC Glucose (mg/dL) 155 H (70-110) mg/dL
--- NOTE | 2024-03-25 12:36 | P.PN ---
Subjective Progress Note Date: 03/25/24 Principal diagnosis: CVA. Patient was seen today , patient was intubated yesterday, and she is now on mechanical ventilation. Patient developed worsening hypoxic and hyp ercapnic respiratory failure required intubation mechanical ventilation. Patient is now on assist-control rate of 20 tidal volume 400 FiO2 40% and PEEP of 5 ABG showed a pO2 of 93 pCO2 45 pH of 7.47 hence no changes were made in her present ventilator settings. Patient is on vital AF at 10 cc/h she is also on propofol at 50 mcg/kg/min, amiodarone 0.5 mg/min heparin drip IV fluid 0.9 normal saline at 75 cc/h Solu-Medrol 60 every 6 Zosyn empirically for possible aspiration. Patient had a presentation of 2 weeks history of headache and stuttering. She was found to have right parietal CVA. Patient was intubated on 03/16 remains intubated and sedated. Chest x-ray showed COPD with ongoing int erstitial opacities throughout both lungs. And opacity noted in the left retrocardiac area suspicious for pneumonia with some opacity in the right base that seems to be improving WBC count today is 7.7 hemoglobin 13.5 basic metabolic profile is normal, BUN is 40 creatinine 0.83 Patient was seen today on 03/18/2024, remains in ICU, intubated and mechanically ventilated, on assist-control rate of 20 tidal volume 400 FiO2 40% and PEEP of 5 ABG showed a pO2 of 134 pCO2 44 pH of 7.44. Based on ABG I recommended cutting down her FiO2 to 35% and decreased today down to 18. Patient is on vital HP at 10/35 she is also on propofol at 20 mcg/kg/min, heparin drip IV fluid 0.9 normal saline at 75 cc/h patient is receiving Zosyn empirically. She had fluid balance +1 L over the last 24 hours. WBC count is 8.7 hemoglobin 13.9 platelets are 144. Electrolytes are normal renal profile is normal with BUN of 33 creatinine 0.61 blood sugar is 204 chest x-ray is showing nonspecific interstitial infiltr ates and a patchy left retrocardiac opacity. Seen today on 03/19/2024, patient remains in the ICU, intubated and mechanically ventilated, on assist-control rate of 18 tidal volume 400 FiO2 35% and PEEP of 5 ABG showed a pO2 of 96 pCO2 46 pH of 7.43 patient was taken off propofol yesterday, remains on propofol, and does not seem to follow any instructions, she opens her eyes, withdraws to pain, moves her left upper extremity withdraws to pain mostly. Patient remains on heparin, IV fluid 0.9 at 75 cc/h vital HP at 35/35. Remains on Solu-Medrol and on Zosyn. Patient to remain off propofol today, and no plans to place her back on propofol for now. Would like to get further assessment of her mental status as she seems to be not responding purposefully to any stimuli except withdraws to pain. Patient opens her eyes but does not follow any instructions. WBC is 7.0 hemoglobin 11, basic metabolic profile noted, potassium is a bit low at 3.1 but renal profile is normal. Patient was evaluated today on 03/20/2024, remains in the ICU, intubated and mechanically ventilated. Patient has been off propofol now for 2 days, opening eyes, wiggling toes, squeezing hands, but still not fully awake. And it takes a lot of repetition of instructions to make the patient understand or comprehend what she is being told. Patient remains extremely slow, she is on assist- control rate of 18 tidal volume 400 FiO2 35% PEEP of 5 ABG showed a pO2 of 76 pCO2 45 pH of 7.44. Chest x-ray showed slight worsening of her interstitial opacities bilaterally. Patient is on Zosyn.WBC count is 6.7 hemoglobin 9.6. Basic metabolic profile is normal renal profile is normal. Sputum cultures are nondiagnostic showed mostly normal rubin Patient was evaluated today on 03/21/2024, patient remains in the ICU, intubated and mechanically ventilated, on assist-control rate of 18 tidal volume 400 FiO2 35% PEEP of 5 ABG showed a pO2 of 83 pCO2 45 pH of 7.44 patient remains off propofol, she is arousable she is awake, follows simple instructions cannot use her right upper extremity seems to be paralyzed. Related to her acute CVA involving the left parietal area. Patient remains on heparin, on IV fluid at 75 cc/h vital AF at 55/55, patient is also on Solu-Medrol and Zosyn. Family is noted at bedside, patient is the best I have seen her today as far as her mental status is concerned, she seems to be more awake, more appropriate, and feels to follow instructions quite well. Hence I recommended a trial of pressure support of 10 and CPAP, and if tolerated I plan to proceed with further weaning and possibly extubationChest x-ray showed COPD with similar diffuse bilateral interstitial patchy opacities patient is on antibiotics for presumptive aspiration pneumonia WBC count is 11.3 hemoglobin is 10, Basic metabolic profile is normal renal profile is normal Patient was seen today on 03/22/2024, patient remains in the ICU, she was extubated yesterday, extubated to BiPAP, today she was placed on 4 L nasal cannula, patient is doing better tolerating extubation so far quite well. She was on 03/21/40% on BiPAP now on 4 L nasal cannula she seems to be very appropriate, follows simple instructions. Chest x-ray continues to show nonspecific interstitial infiltrates/edema hence I gave her a dose of Lasix 20 mg IV push cut down her IV fluid to KVO, cut down her Solu-Medrol to 40 mg IV push every 12 hours. Her CODE STATUS has been changed to DNR. Patient remains on heparin but this will be transition to Eliquis today remains on Zosyn for presumptive aspiration. WBC count is 12.9 hemoglobin is 11.6 electrolytes are normal BUN is 32 creatinine 0.49. He was seen today on 03/23/2024, remains in the ICU, patient continues to tolerate extubation well over the last couple of days. She seems to be more and more awake, follows simple instructions, continues to have right upper extremity weakness/paralysis. Speech seems to be also affected/patient has garbled speech. Today the plan is to discontinue her lines, establish a peripheral line, continue antibiotics for now, and I plan to transfer the patient out of the ICU to a regular medical floor/monitored bed. Remains on Eliquis and she remains on Zosyn WBC count is 14.8 hemoglobin is 12.4 electrolytes are normal renal profile is normal no chest x-ray was done today, patient is maintaining excellent saturation on 4 L nasal cannula Progress note dated March 24, 2024. 73-year-old female who was admitted back on March 11, 2024. She has been here in the hospital for 13 days. She is getting saline at 100 cc an hour, and nasal O2 at 3 L by nasal cannula. The BiPAP device is in the room, but it is unclear to me whether or not the patient used it last night. Settings include 03/21, with 40%. The patient appears to be relatively comfortable, and in no acute distress. Current labs are good a white count 11, hemoglobin 13.3, h ematocrit 44.2, and a platelet count of 279,000. Sodium 134, potassium 4.7, chlorides 99, CO2 35, BUN 26, creatinine 0.59. Glucose is 158. Albumin is 2.5. Progress note dated March 25, 2024. 73-year-old female who was admitted back on March 11, 2024. The patient is seen today in room 360. She remains on oxygen at 2 L. The patient is getting saline at 10 cc an hour. The patient was in the intensive care unit, on a ventilator previously. She is a DO NOT RESUSCITATE patient. No new labs today other than a glucose of 155. Brain CT from yesterday shows no acute intracranial process. There is remote encephalomalacia involving the left cerebrum related to previous injury, and nonspecific white matter changes. Objective - Vital Signs Vital signs: Vital Signs Temp 97.6 F 03/25/24 11:19 Pulse 70 03/25/24 11:56 Resp 14 03/25/24 11:19 BP 115/67 03/25/24 11:19 Pulse Ox 98 03/25/24 11:19 FiO2 40 03/22/24 08:00 Intake & Output 03/24/24 03/25/24 03/25/24 18:59 06:59 18:59 Intake Total 110 120 Output Total 5 Balance 110 -212 120 Weight 70.5 kg 70.5 kg Intake: IV 10 Invasive Line 6 10 Oral 110 110 Output: Urine 2124 Uretheral (Luevano) 2024 Other: Voiding Method External Catheter Indwelling Catheter Indwelling Catheter ABP, PAP, CO, CI - Last Documented Arterial Blood Pressure 132/50 - Exam No acute distress, oriented 3. No respiratory distress. The patient continues on 2 L. HEENT examination is grossly unremarkable. Mucous membranes are moist. No oral lesions. Neck supple. Full range of motion. No adenopathy thyromegaly or neck vein distention. Cardiovascular examination reveals regular rhythm rate. S1-S2 normal. No S3 or S4. No discernible murmur noted. Lungs reveal clear breath sounds. Breath sounds are equal bilaterally. No adventitious lung sounds including wheezes rhonchi or crackles. Abdomen soft bowel sounds are heard. No masses or tenderness. Extremities are intact. No cyanosis clubbing or edema. No movement right upper extremity. Skin is without rash or lesion. Neurologic examination feels decreased movement right upper extremity. Speech is garbled. - Labs CBC & Chem 7: 03/24/24 06:56 03/24/24 06:56 Labs: Abnormal Lab Results - Last 24 Hours (Table) 03/24/24 03/25/24 03/25/24 Range/Units 18:12 00:22 06:05 POC Glucose (mg/dL) 191 H 182 H 170 H (70-110) mg/dL 03/25/24 Range/Units 11:20 POC Glucose (mg/dL) 155 H (70-110) mg/dL Assessment and Plan Assessment: 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 Acute on chronic hypoxemic and hypercapnic respiratory failure, S/P intubation and mechanical ventilation with successful extubation on March 21, 2024. History of COPD. Paroxysmal atrial fibrillation. Chronic hypoxemic and hypercapnic respiratory failure. Tobacco dependence syndrome. Severe pulmonary hypertension. History of hypertension. History of hyperlipidemia. Plan: Plan dated March 24, 2024. The patient appears to be relatively stable. The patient does have a small abrasion on the bridge of her nose, suggesting that she did wear the BiPAP last night. On examination, her lung mcgill are clear, and she is in normal sinus rhythm. She continues on saline at 100 cc an hour, nasal cannula 3 L. Labs, x- rays, medications are reviewed. We will continue to follow the patient, and make recommendations along the way. Plan dated March 25, 2024. The patient appears to be doing reasonably well. Labs, x-rays, medications are reviewed. The patient currently is on 2 L. She is getting saline at 10 cc an hour. She is a DO NOT RESUSCITATE patient. We will continue to follow make recommendations along the way. Prognosis is guarded. Pulmonary status is stable. Time with Patient: Less than 30
--- NOTE | 2024-03-25 14:25 | P.PN ---
Subjective Progress Note Date: 03/25/24 Principal diagnosis: Reason for follow-up is pneumonia Patient is a 73-year-old female with a past medical history significant for COPD hypertension hyperlipidemia patient was brought into the hospital for evaluation of mental status changes and was being worked up for stroke did have worsening of respiratory status concerning for aspiration prompted this consultation. Patient did have worsening of her respiratory status got intubated on 03/16/2024 On today's evaluation that is 03/25/2024, Patient is afebrile this morning patient is more awake today did answer some simple question no chest pain no vomiting or diarrhea has been reported. Patient is currently on 2 L current oxygen. No new lab has been repeated today Objective - Vital Signs Vital signs: Vital Signs Temp 97.6 F 03/25/24 11:19 Pulse 70 03/25/24 11:56 Resp 14 03/25/24 11:19 BP 115/67 03/25/24 11:19 Pulse Ox 98 03/25/24 11:19 FiO2 40 03/22/24 08:00 Intake & Output 03/24/24 03/25/24 03/25/24 18:59 06:59 18:59 Intake Total 110 120 Output Total 2125 Balance 110 -212 120 Weight 70.5 kg 70.5 kg Intake: IV 10 Invasive Line 6 10 Oral 110 110 Output: Urine 2124 Uretheral (Luevano) 2024 Other: Voiding Method External Catheter Indwelling Catheter Indwelling Catheter ABP, PAP, CO, CI - Last Documented Arterial Blood Pressure 132/50 - Exam GENERAL DESCRIPTION: An elderly female lying in bed in no distress RESPIRATORY SYSTEM: Unlabored breathing , decreased breath sounds at bases HEART: S1 S2 regular rate and rhythm , ABDOMEN: Soft , no tenderness EXTREMITIES: No edema feet - Labs CBC & Chem 7: 03/24/24 06:56 03/24/24 06:56 Labs: Abnormal Lab Results - Last 24 Hours (Table) 03/24/24 03/25/24 03/25/24 Range/Units 18:12 00:22 06:05 POC Glucose (mg/dL) 191 H 182 H 170 H (70-110) mg/dL 03/25/24 Range/Units 11:20 POC Glucose (mg/dL) 155 H (70-110) mg/dL Assessment and Plan (1) Aspiration pneumonia Current Visit: Yes Status: Acute Code(s): J69.0 - PNEUMONITIS DUE TO INHALATION OF FOOD AND VOMIT SNOMED Code(s): 013689535 (2) Leukocytosis Current Visit: Yes Status: Acute Code(s): D72.829 - ELEVATED WHITE BLOOD CELL COUNT, UNSPECIFIED SNOMED Code(s): 425465347 Plan: 1patient with worsening respiratory status and this patient initially brought into the hospital with slurred speech and being worked up for a CVA with worsening of respiratory status requiring BiPAP and a question of possible aspiration. 2patient did have CT angiogram of the chest shows consolidation concerning for pneumonia possible aspiration repeat CT of the brain concerning for subacute infarct with some progression neurology is following the patient 3patient did have worsening of respiratory status requiring intubation sputum culture has been obtained which are so far negative patient subsequently has been successfully extubated 4patient is afebrile white count slightly up likely due to steroids, no CBC has been done today patient is currently being treated with Zosyn and monitor clinical course closely Dictation was produced using [employer] dictation software. please excuse any grammatical, word or spelling errors. Time with Patient: Less than 30
--- NOTE | 2024-03-25 14:25 | MR ---
EXAMINATION TYPE: MR brain wo con DATE OF EXAM: 03/25/2024 2:11 PM COMPARISON: None. CLINICAL INDICATION: Female, 73 years old with history of stroke, Dysarthria, AMS. TECHNIQUE: Multiplanar, multiecho imaging on a 3.0 Clare magnet is performed through the brain. Stud y is performed within 24 hours of arrival to the hospital.Multiplanar, multiecho imaging on a 3.0 Claudia la magnet is performed through the knee. IV Contrast: mL (None, if empty) FINDINGS: The craniovertebral junction is normal. The pituitary is normal. Diffusion-weighted imaging is performed. There is hyperintensity within the left centrum semiovale a nd watershed white matter region. Acute ischemic changes likely present through these regions. There is some mild increased signal within gyri within these regions. There are scattered confluent areas of hyperintensity on T2 and Inversion Recovery weighted sequences in the periventricular white matter and deep white matter which are non-specific but can be related to microvascular ischemic changes. Some blooming artifact appears to be within the region of the acute left parietal infarct. This may b e a vascular malformation. Ventricles and sulci are prominent for the patient age. IMPRESSION: 1. Acute ischemic type changes within the left watershed white matter the left frontal parietal lobes . 2. Chronic appearing periventricular white type changes. [facility], , 03/25/2024 2:23 PM
--- NOTE | 2024-03-25 14:51 | FL ---
EXAMINATION TYPE: FL barium swallow w video DATE OF EXAM: 03/25/2024 COMPARISON: NONE HISTORY: Abnormal bedside examination TECHNIQUE: Fluoroscopy. FINDINGS: Fluoroscopic guidance was provided for the procedure performed in conjunction with the [facility] pathology department. Please see complete report forthcoming from the Speech Pathology departmen t. Various consistencies from thin liquid to solids were administered. Fluoroscopy time 1 minute 24 seconds. Number of images: 31 DAP: 0.78859 Deep penetration with thin liquids. No aspiration is evident. With thick liquids honey thick liquids and pudding thick liquids no aspiration or penetration was evident. No significant pooling was observed in the vallecula. There is delayed propulsion. IMPRESSION: 1. Deep penetration without aspiration with thin liquids. [facility], , 03/25/2024 2:49 PM
[2024-03-25 16:17] LABS: Glucose,Whole Blood 220 mg/dL (70-110)
--- NOTE | 2024-03-25 17:27 | P.PN ---
Subjective Progress Note Date: 03/25/24 I am following-up with patient and per the nurse she continues to not move the right upper extremity but is awake but not verbalizing. Objective - Vital Signs Vital signs: Vital Signs Temp 97.7 F 03/25/24 15:06 Pulse 68 03/25/24 16:23 Resp 15 03/25/24 15:06 BP 105/65 03/25/24 15:06 Pulse Ox 95 03/25/24 15:06 FiO2 40 03/22/24 08:00 Intake & Output 03/24/24 03/25/24 03/25/24 18:59 06:59 18:59 Intake Total 110 240 Output Total 2124 1130 Balance 110 -2124 -890 Weight 70.5 kg 70.5 kg Intake: IV 20 Invasive Line 6 20 Oral 110 220 Output: Urine 2124 1130 Uretheral (Luevano) 2024 Other: Voiding Method External Catheter Indwelling Catheter Indwelling Catheter ABP, PAP, CO, CI - Last Documented Arterial Blood Pressure 132/50 - Exam General: Lying in bed and does not appear in acute distress.. Neuro: Very limited Patient is mildly drowsy but is more awakeable today. Is mute. Is following few simple commands such as asking her move arm and she would move the left arm and wiggle her toes. Has good eye contact. Motor: Strength is limited in assessment individual muscle strength. Moving the left upper extremity above gravity. No movement of the right upper extremity. Wiggle toes (left >right). - Labs CBC & Chem 7: 03/24/24 06:56 03/24/24 06:56 Labs: Abnormal Lab Results - Last 24 Hours (Table) 03/24/24 03/25/24 03/25/24 Range/Units 18:12 00:22 06:05 POC Glucose (mg/dL) 191 H 182 H 170 H (70-110) mg/dL 03/25/24 03/25/24 Range/Units 11:20 16:15 POC Glucose (mg/dL) 155 H 220 H (70-110) mg/dL Assessment and Plan Assessment: Ms. Ponce is a 73-year-old female with history of hypertension, COPD, and bilateral cataracts who was brought to the hospital on March 11 with some speech abnormalities and lethargy. She was noted on CT scan to have a right parietal as well as left precentral gyrus infarct. I personally reviewed it and felt over the left fronto/parietal region) Acute ischemic stroke (right parietal as well as left precentral gyrus infarct o n CT per my colleague and per reading radiologist bilateral hemsiphere but I felt over the left fronto/parietal/occipital region and precentral region) and appears embolic (cardioembolic, especially with Atrial fibrillation). Examination patient is mute but is following commands has plegia of the right upper extremity and some weakness more on the right lower extremity Respiratory distress and is intubated on ventilator Paroxysmal atrial fibrillation Severe pulmonary hypertension Hypertension Hyperlipidemia History of COPD Tobacco dependence Plan: MRI brain is reported as acute ischemic type changes within the left watershed white matter left frontal parietal lobe. Chronic appearing periventricular white matter changes. I personally reviewed the MRI and I do agree the patient has ischemic changes over the left frontal parietal region and some in the left temporal as well as felt some over the right inferior temporal seems more suggestive of embolic. Patient is on Eliquis 5 mg twice daily as well as aspirin 325mg daily Patient is on Lipitor 40 mg daily. Continue neurochecks Cardiac monitoring PT OT and TONGUE TRIMMER are consulted. Will benefit from inpatient rehab. For DVT prophylaxis: On Eliquis. Discharge recommend the patient to follow-up with a neurologist as an outpatient within 2 weeks. No further neurological workup. Will follow-up with the patient sporadically remains in the hospital. Time with Patient: Less than 30
[2024-03-25] MEDS: amLODIPine 2.5 MG TAB PO SCH (20:25)
[2024-03-25 23:55] LABS: Glucose,Whole Blood 186 mg/dL (70-110)
[2024-03-26 06:04] LABS: Glucose,Whole Blood 204 mg/dL (70-110)
[2024-03-26 07:56] LABS: Basophils % (A) 0 %; Eosinophils % (A) 0 %; HCT 42.2 % (34.0-46.0); Hypochromasia Marked; Lymphocytes # (A) 0.4 k/uL (1.0-4.8); Lymphocytes % (A) 3 %; MCHC 30.8 g/dL (31.0-37.0); MCV 84.3 fL (80.0-100.0); Mean Platelet Volume 8.2; Monocytes # (A) 0.4 k/uL (0-1.0); Monocytes % (A) 3 %; Neutrophils # (A) 12.2 k/uL (1.3-7.7); Neutrophils % (A) 94 %; Platelet Count 309 k/uL (150-450); RBC 5.01 m/uL (3.80-5.40); RDW 15.8 % (11.5-15.5)
[2024-03-26 08:15] LABS: ALT 26 U/L (4-34); AST 18 U/L (14-36); African American GFR (CKD) >90 (>60 ml/min/1.73 sqM); Albumin 2.6 g/dL (3.5-5.0); Alkaline Phosphatase 40 U/L (38-126); Anion Gap -1 mmol/L; Blood Urea Nitrogen 24 mg/dL (7-17); Calcium 7.8 mg/dL (8.4-10.2); Carbon Dioxide 35 mmol/L (22-30); Chloride 99 mmol/L (98-107); Glucose 172 mg/dL (74-99); Non-African American GFR(CKD) >90 (>60 ml/min/1.73 sqM); Potassium 4.4 mmol/L (3.5-5.1); Sodium 133 mmol/L (137-145); Total Bilirubin 0.8 mg/dL (0.2-1.3); Total Protein 4.8 g/dL (6.3-8.2)
[2024-03-26] MEDS ORDERED: IPRATROPIUM-ALBUTEROL 3 ML NEB INHALATION PRN (09:35)
[2024-03-26] MEDS: LOSARTAN 50 MG TAB PO SCH (09:35)
[2024-03-26] MEDS: AMIODARONE 200 MG TAB PO SCH (09:36)
--- NOTE | 2024-03-26 10:45 | P.PN ---
Subjective Progress Note Date: 03/26/24 Mirtha Ponce is a 73-year-old female patient who initially presented to her PCP with complaints of slurring of speech patient was directed to come to ER for further evaluation. At this time patient is in bed sleeping not following commands or answering questions. Family at bedside history obtained through them and medical records. According to family patient was found to be having slurred speech patient did not want to come to ER at that time so was taken to PCP. Per family patient is a heavy smoker but denies any alcohol or drug use. Denies any recent illness. Additional medical history includes COPD, hypertension. Head CT completed showing right parietal lobe acute/subacute CVA. EKG completed showing sinus rhythm. Chest x-ray completed showing cardiomegaly with pulmonary vascular congestion correlate with serum BNP COPD changes. Lab work revealing troponin 0.379, 0.429 and 0.436, white blood cell 5.7, hemoglobin 15.4 creatinine 0.56 bun 14. At this time neurology services have been consulted MRI of the brain has been ordered CTA of the carotids ordered. Will order 2D echo and consult cardiology services. Due to patient's increasing altered mental status changes and concerns for respiratory status we will consult pulmonary services. Patient's BNP also elevated at 6490 will give 1 dose of IV Lasix. Current vital signs temp 97.9, heart rate 96, respiratory rate 18, blood pressure 100/59 with a pulse ox of 95% on nonrebreather. On 03/13/2024 patient was seen and examined on the medical floor she is alert and oriented x 3 in no apparent distress, she has a low-grade fever of 99.4 pulse 108 respiration 22 blood pressure 123/61 pulse ox 91% on 6 L nasal cannula, she has cough, with minimal sputum production she denies any chest pain or shortness of breath no nausea or vomiting no abdominal pain no diarrhea and no urinary symptoms. At this time will keep patient n.p.o. for possible aspiration, will start IV Zosyn and repeat chest x-ray, infectious disease con sultation was added, will continue with IV heparin due to elevated troponin levels, awaiting cardiology input. Neurology consult reviewed. On 03/14/2024 patient remains lethargic in the intensive care unit. Patient was placed on BiPAP. Patient also started on IV Zosyn for concerns of aspiration pneumonia patient not following commands at this time recommendations for possible Dobbhoff placement in order to administer oral medications. Neurology services are following MRI has been ordered but cannot be performed while patient is on BiPAP and heparin. Critical care services following infectious disease, cardiology and neurology services following. Current vital signs temp 98.1, heart rate 96, respiratory rate 27, blood pressure 119/69 with a pulse ox of 96% on BiPAP with an FiO2 of 45%. Family at bedside all questions answered On 03/15/2024 patient was seen and examined in the intensive care unit, she is not responsive at this time she is maintained on BiPAP, vital examination r eveals a temperature of 97.9 pulse 89 respiration 24 blood pressure 110/62 pulse ox 99% on FiO2 45% White blood count is 8.7 hemoglobin 13.8 platelet count 249 arterial blood gas revealed a pH of 7.24 pCO2 95% PaO2 96%, BUN 43 creatinine 0.69. Patient is followed by neurology, infectious disease, cardiology and pulmonary critical care, she remains on IV heparin. CT scan of the brain, was repeated yesterday and reveals multiple subacute infarcts no acute bleed or mass effect, chest x-r ay done this morning reveals diffuse interstitial infiltrates. Prognosis is guarded. On 03/16/2024 patient remains in the intensive care unit ABGs continued to decline despite BiPAP. Plans for intubation today per critical care.. Family at bedside. Plan discussed with family and nursing staff. Patient remains on IV Zosyn and IV Cardizem. Prognosis remains guarded. Neurology, infectious disease, cardiology and critical care services are all following. On 03/17/2024 patient was seen and examined in the intensive care unit, she is intubated sedated maintained on mechanical ventilation, assist control rate of 20 FiO2 40% with a PEEP of 5, she is maintained on IV antibiotic Zosyn and IV Solu-Medrol 60 mg every 6 hours. White blood count is 7.7 hemoglobin 13.5 platelet count 169 BUN 40 creatinine 0.83, patient is still maintained on IV heparin. Will continue to follow closely On 03/18/2024 patient remains in the intensive care unit intubated and sedated on mechanical ventilation with an FiO2 of 40%. Patient remains on IV antibiotics Zosyn. Patient remains on IV heparin drip. WBC 8.7, hemoglobin 13.9 creatinine 0.61 bun 33 multiple consults following On 03/19/2024 patient remains in the intensive care unit. Sedation has been stopped per critical care will assess mentation. Current vital signs temp 98.2, heart rate 75, respiratory rate 20, blood pressure 117/66 with pulse ox of 96% on mechanical ventilation with an FiO2 of 35%. White blood cell 7.0 hemoglobin 11.0 creatinine 0.51 bun 27 potassium low at 3.1 this to be replaced per protocol. Multiple consults following On 03/20/2024 patient remains in the intensive care unit. On mechanical ventilation. Sedation remains off. Chest x-ray completed showing COPD with slight worsening in the diffuse interstitial and patchy opacitiesThat has been increasing over the past few days 4. History of coronary artery disease. Current vital signs temp 98.2, heart rate 80, respiratory rate 19, blood pressure 121/68 with a pulse ox of 95% on mechanical ventilation with an FiO2 of 35% On 03/21/2024 patient remains in the intensive care unit today patient is awake following commands on mechanical ventilation sedation remains off. Per critical care will attempt extubation today. Patient had follow-up CT yesterday per neurology services anticipate patient will need MRI once extubated and stable. Current vital signs temp 98.9, heart rate 77, respiratory rate 19, blood pressure 100/57 on mechanical ventilation at FiO2 of 35% On 03/22/2024 patient was seen and examined in the ICU, she is alert and oriented x 3 in no apparent distress, she is off the ventilator and is maintained on oxygen 4 L via nasal cannula, she is responsive and answering questions by yes or no, there is no fever or chills no headache or dizziness no chest pain no shortness of breath no cough no nausea or vomiting no abdominal pain no diarrhea and no urinary symptoms. Patient had a recent stroke, repeat swallow evaluation is scheduled for Sunday. On 03/23/2024 patient is alert and oriented x 3 patient has been extubated. Patient remains in the ICU. MRI has been ordered. Current vital signs temp 98.2, heart rate 68, respiratory rate 21, blood pressure 109/61 with a pulse ox of 121/43. Pulse ox 98% on 3 L. At this time patient denies chest pain or shortness of breath. Patient denies nausea vomiting or diarrhea. Patient denies any urinary burning or frequency. On 03/24/2024 patient was seen and examined on the telemetry floor she is alert and oriented in no apparent distress, she is answering few questions by yes or no, there is no fever or chills no headache or dizziness no chest pain no shortness of breath no cough no nausea or vomiting no abdominal pain no diarrhea and no urinary symptoms. Plan is to proceed with speech therapy consult for swallowing evaluation, also to proceed with MRI of the brain, physical therapy and Occupational Therapy are consulted. Will follow closely. On 03/25/2024 patient's alert remains confused. MRI of the brain has been ordered per neurology patient denies chest pain or shortness of breath. Patient denies nausea vomiting or diarrhea. Patient denies any urinary burning or frequency Objective - Vital Signs Vital signs: Vital Signs Temp 97.4 F L 03/26/24 04:21 Pulse 80 03/26/24 09:40 Resp 18 03/26/24 09:40 BP 104/57 03/26/24 08:00 Pulse Ox 98 03/26/24 09:30 FiO2 40 03/22/24 08:00 Intake & Output 03/25/24 03/26/24 03/26/24 18:59 06:59 18:59 Intake Total 360 20 110 Output Total 1130 400 Balance -770 -380 110 Weight 70.5 kg Intake: IV 20 20 Invasive Line 6 20 20 Oral 340 110 Output: Urine 1130 400 Other: Voiding Method Indwelling Catheter Indwelling Catheter ABP, PAP, CO, CI - Last Documented Arterial Blood Pressure 132/50 - Exam Head normocephalic Neck supple Lungs clear to auscultation bilaterally no wheezing or crackles Heart regular rate and rhythm S1-S2, no rub or gallop Abdomen is soft nontender nondistended positive bowel sounds no hepatospl enomegaly Extremities no edema Neuro patient is unresponsive - Labs CBC & Chem 7: 03/26/24 06:40 03/26/24 06:40 Labs: Abnormal Lab Results - Last 24 Hours (Table) 03/25/24 03/25/24 03/25/24 Range/Units 11:20 16:15 23:48 WBC (3.8-10.6) k/uL MCHC (31.0-37.0) g/dL RDW (11.5-15.5) % Neutrophils # (1.3-7.7) k/uL Lymphocytes # (1.0-4.8) k/uL Sodium (137-145) mmol/L Carbon Dioxide (22-30) mmol/L BUN (7-17) mg/dL Glucose (74-99) mg/dL POC Glucose (mg/dL) 155 H 220 H 186 H (70-110) mg/dL Calcium (8.4-10.2) mg/dL Total Protein (6.3-8.2) g/dL Albumin (3.5-5.0) g/dL 03/26/24 03/26/24 03/26/24 Range/Units 06:03 06:40 06:40 WBC 13.0 H (3.8-10.6) k/uL MCHC 30.8 L (31.0-37.0) g/dL RDW 15.8 H (11.5-15.5) % Neutrophils # 12.2 H (1.3-7.7) k/uL Lymphocytes # 0.4 L (1.0-4.8) k/uL Sodium 133 L (137-145) mmol/L Carbon Dioxide 35 H (22-30) mmol/L BUN 24 H (7-17) mg/dL Glucose 172 H (74-99) mg/dL POC Glucose (mg/dL) 204 H (70-110) mg/dL Calcium 7.8 L (8.4-10.2) mg/dL Total Protein 4.8 L (6.3-8.2) g/dL Albumin 2.6 L (3.5-5.0) g/dL Assessment and Plan Assessment: 1. Slurred speech and altered mental status changes likely secondary from CVA 2. Acute CHF exacerbation 3. Elevated troponins 4. Ongoing nicotine dependence greater than 1 pack/day 5. History of COPD 6. History of essential hypertension 7. Concerns of aspiration pneumonia patient started on IV Zosyn infectious disease service is consulted 8. Acute on chronic hypoxic and hypercapnic respiratory failure requiring intubation and mechanical ventilation. Patient has been extubated 03/21/2024 Neurology, cardiology and pulmonary services consulted Patient remains on IV Zosyn Remains in the intensive care unit MRI of the brain Has been completed Patient has been transition to oral anticoagulation Repeat labs ordered PT and OT services consulted Will consult IPR services for possible discharge Per case management guardianship is in process
[2024-03-26 11:36] LABS: Glucose,Whole Blood 177 mg/dL (70-110)
--- NOTE | 2024-03-26 11:51 | P.PN ---
Subjective HISTORY OF PRESENT ILLNESS: Patient examined this morning at the bedside. Patient currently denies chest pain or pressure. Denies shortness of breath. Patient's blood pressures are soft with a systolic in the 90s. Telemetry reveals sinus mechanism. 03/26/2024 Patient examined this morning at bedside. Patient's family is present. Patient is resting comfortably in bed. Patient's blood pressures are improved today with a reading of 104/57. PHYSICAL EXAM: VITAL SIGNS: Reviewed. GENERAL: Well-developed in no acute distress. NECK: Supple. No JVD or thyromegaly LUNGS: Respirations even and unlabored. Lungs essentially clear to auscultation bilaterally. HEART: Regular rate and rhythm. S1 and S2 heard. EXTREMITIES: Normal range of motion. No clubbing or cyanosis. Peripheral pulses intact. No lower extremity edema ASSESSMENT: Acute CVA Hypotension Paroxysmal atrial fibrillation Hypertension Hyperlipidemia COPD Acute hypoxic respiratory failure requiring mechanical ventilation, since extubated Elevated troponins, type II MS, no evidence of acute coronary syndrome Nicotine dependence PLAN: Continue current cardiac medications No further inpatient recommendations from a cardiac standpoint We will sign off. Please reconsult if needed. Nurse practitioner note has been reviewed by physician. Signing provider agrees with the documented findings, assessment, and plan of care documented by SENIOR MEDICAL DIRECTOR as a scribe. Objective - Vital Signs Vital signs: Vital Signs Temp 97.4 F L 03/26/24 04:21 Pulse 80 03/26/24 09:40 Resp 18 03/26/24 09:40 BP 104/57 03/26/24 08:00 Pulse Ox 98 03/26/24 09:30 FiO2 40 03/22/24 08:00 Intake & Output 03/25/24 03/26/24 03/26/24 18:59 06:59 18:59 Intake Total 360 20 120 Output Total 1130 400 600 Balance -770 -380 -480 Weight 70.5 kg Intake: IV 20 20 10 Invasive Line 6 20 20 10 Oral 340 110 Output: Urine 1130 400 600 Other: Voiding Method Indwelling Catheter Indwelling Catheter Indwelling Catheter ABP, PAP, CO, CI - Last Documented Arterial Blood Pressure 132/50 - Labs CBC & Chem 7: 03/26/24 06:40 03/26/24 06:40 Labs: Abnormal Lab Results - Last 24 Hours (Table) 03/25/24 03/25/24 03/26/24 Range/Units 16:15 23:48 06:03 WBC (3.8-10.6) k/uL MCHC (31.0-37.0) g/dL RDW (11.5-15.5) % Neutrophils # (1.3-7.7) k/uL Lymphocytes # (1.0-4.8) k/uL Sodium (137-145) mmol/L Carbon Dioxide (22-30) mmol/L BUN (7-17) mg/dL Glucose (74-99) mg/dL POC Glucose (mg/dL) 220 H 186 H 204 H (70-110) mg/dL Calcium (8.4-10.2) mg/dL Total Protein (6.3-8.2) g/dL Albumin (3.5-5.0) g/dL 03/26/24 03/26/24 03/26/24 Range/Units 06:40 06:40 11:35 WBC 13.0 H (3.8-10.6) k/uL MCHC 30.8 L (31.0-37.0) g/dL RDW 15.8 H (11.5-15.5) % Neutrophils # 12.2 H (1.3-7.7) k/uL Lymphocytes # 0.4 L (1.0-4.8) k/uL Sodium 133 L (137-145) mmol/L Carbon Dioxide 35 H (22-30) mmol/L BUN 24 H (7-17) mg/dL Glucose 172 H (74-99) mg/dL POC Glucose (mg/dL) 177 H (70-110) mg/dL Calcium 7.8 L (8.4-10.2) mg/dL Total Protein 4.8 L (6.3-8.2) g/dL Albumin 2.6 L (3.5-5.0) g/dL
--- NOTE | 2024-03-26 15:12 | P.PN ---
Subjective Progress Note Date: 03/26/24 Principal diagnosis: CVA. Patient was seen today , patient was intubated yesterday, and she is now on mechanical ventilation. Patient developed worsening hypoxic and hyp ercapnic respiratory failure required intubation mechanical ventilation. Patient is now on assist-control rate of 20 tidal volume 400 FiO2 40% and PEEP of 5 ABG showed a pO2 of 93 pCO2 45 pH of 7.47 hence no changes were made in her present ventilator settings. Patient is on vital AF at 10 cc/h she is also on propofol at 50 mcg/kg/min, amiodarone 0.5 mg/min heparin drip IV fluid 0.9 normal saline at 75 cc/h Solu-Medrol 60 every 6 Zosyn empirically for possible aspiration. Patient had a presentation of 2 weeks history of headache and stuttering. She was found to have right parietal CVA. Patient was intubated on 03/16 remains intubated and sedated. Chest x-ray showed COPD with ongoing int erstitial opacities throughout both lungs. And opacity noted in the left retrocardiac area suspicious for pneumonia with some opacity in the right base that seems to be improving WBC count today is 7.7 hemoglobin 13.5 basic metabolic profile is normal, BUN is 40 creatinine 0.83 Patient was seen today on 03/18/2024, remains in ICU, intubated and mechanically ventilated, on assist-control rate of 20 tidal volume 400 FiO2 40% and PEEP of 5 ABG showed a pO2 of 134 pCO2 44 pH of 7.44. Based on ABG I recommended cutting down her FiO2 to 35% and decreased today down to 18. Patient is on vital HP at 10/35 she is also on propofol at 20 mcg/kg/min, heparin drip IV fluid 0.9 normal saline at 75 cc/h patient is receiving Zosyn empirically. She had fluid balance +1 L over the last 24 hours. WBC count is 8.7 hemoglobin 13.9 platelets are 144. Electrolytes are normal renal profile is normal with BUN of 33 creatinine 0.61 blood sugar is 204 chest x-ray is showing nonspecific interstitial infiltr ates and a patchy left retrocardiac opacity. Seen today on 03/19/2024, patient remains in the ICU, intubated and mechanically ventilated, on assist-control rate of 18 tidal volume 400 FiO2 35% and PEEP of 5 ABG showed a pO2 of 96 pCO2 46 pH of 7.43 patient was taken off propofol yesterday, remains on propofol, and does not seem to follow any instructions, she opens her eyes, withdraws to pain, moves her left upper extremity withdraws to pain mostly. Patient remains on heparin, IV fluid 0.9 at 75 cc/h vital HP at 35/35. Remains on Solu-Medrol and on Zosyn. Patient to remain off propofol today, and no plans to place her back on propofol for now. Would like to get further assessment of her mental status as she seems to be not responding purposefully to any stimuli except withdraws to pain. Patient opens her eyes but does not follow any instructions. WBC is 7.0 hemoglobin 11, basic metabolic profile noted, potassium is a bit low at 3.1 but renal profile is normal. Patient was evaluated today on 03/20/2024, remains in the ICU, intubated and mechanically ventilated. Patient has been off propofol now for 2 days, opening eyes, wiggling toes, squeezing hands, but still not fully awake. And it takes a lot of repetition of instructions to make the patient understand or comprehend what she is being told. Patient remains extremely slow, she is on assist- control rate of 18 tidal volume 400 FiO2 35% PEEP of 5 ABG showed a pO2 of 76 pCO2 45 pH of 7.44. Chest x-ray showed slight worsening of her interstitial opacities bilaterally. Patient is on Zosyn.WBC count is 6.7 hemoglobin 9.6. Basic metabolic profile is normal renal profile is normal. Sputum cultures are nondiagnostic showed mostly normal rubin Patient was evaluated today on 03/21/2024, patient remains in the ICU, intubated and mechanically ventilated, on assist-control rate of 18 tidal volume 400 FiO2 35% PEEP of 5 ABG showed a pO2 of 83 pCO2 45 pH of 7.44 patient remains off propofol, she is arousable she is awake, follows simple instructions cannot use her right upper extremity seems to be paralyzed. Related to her acute CVA involving the left parietal area. Patient remains on heparin, on IV fluid at 75 cc/h vital AF at 55/55, patient is also on Solu-Medrol and Zosyn. Family is noted at bedside, patient is the best I have seen her today as far as her mental status is concerned, she seems to be more awake, more appropriate, and feels to follow instructions quite well. Hence I recommended a trial of pressure support of 10 and CPAP, and if tolerated I plan to proceed with further weaning and possibly extubationChest x-ray showed COPD with similar diffuse bilateral interstitial patchy opacities patient is on antibiotics for presumptive aspiration pneumonia WBC count is 11.3 hemoglobin is 10, Basic metabolic profile is normal renal profile is normal Patient was seen today on 03/22/2024, patient remains in the ICU, she was extubated yesterday, extubated to BiPAP, today she was placed on 4 L nasal cannula, patient is doing better tolerating extubation so far quite well. She was on 03/21/40% on BiPAP now on 4 L nasal cannula she seems to be very appropriate, follows simple instructions. Chest x-ray continues to show nonspecific interstitial infiltrates/edema hence I gave her a dose of Lasix 20 mg IV push cut down her IV fluid to KVO, cut down her Solu-Medrol to 40 mg IV push every 12 hours. Her CODE STATUS has been changed to DNR. Patient remains on heparin but this will be transition to Eliquis today remains on Zosyn for presumptive aspiration. WBC count is 12.9 hemoglobin is 11.6 electrolytes are normal BUN is 32 creatinine 0.49. He was seen today on 03/23/2024, remains in the ICU, patient continues to tolerate extubation well over the last couple of days. She seems to be more and more awake, follows simple instructions, continues to have right upper extremity weakness/paralysis. Speech seems to be also affected/patient has garbled speech. Today the plan is to discontinue her lines, establish a peripheral line, continue antibiotics for now, and I plan to transfer the patient out of the ICU to a regular medical floor/monitored bed. Remains on Eliquis and she remains on Zosyn WBC count is 14.8 hemoglobin is 12.4 electrolytes are normal renal profile is normal no chest x-ray was done today, patient is maintaining excellent saturation on 4 L nasal cannula Progress note dated March 24, 2024. 73-year-old female who was admitted back on March 11, 2024. She has been here in the hospital for 13 days. She is getting saline at 100 cc an hour, and nasal O2 at 3 L by nasal cannula. The BiPAP device is in the room, but it is unclear to me whether or not the patient used it last night. Settings include 03/21, with 40%. The patient appears to be relatively comfortable, and in no acute distress. Current labs are good a white count 11, hemoglobin 13.3, h ematocrit 44.2, and a platelet count of 279,000. Sodium 134, potassium 4.7, chlorides 99, CO2 35, BUN 26, creatinine 0.59. Glucose is 158. Albumin is 2.5. Progress note dated March 25, 2024. 73-year-old female who was admitted back on March 11, 2024. The patient is seen today in room 360. She remains on oxygen at 2 L. The patient is getting saline at 10 cc an hour. The patient was in the intensive care unit, on a ventilator previously. She is a DO NOT RESUSCITATE patient. No new labs today other than a glucose of 155. Brain CT from yesterday shows no acute intracranial process. There is remote encephalomalacia involving the left cerebrum related to previous injury, and nonspecific white matter changes. Progress note dated March 26, 2024. 73-year-old female admitted back on March 11, 2024. The patient is seen today in room 360. She continues on O2 at 2 L. She is getting saline at 10 cc an hour. The patient is resting comfortably in bed. No acute distress. She is awake and alert. White count 13, hemoglobin 13, macro 42.2, platelet count 209,000. Sodium 133, potassium 4.4, chlorides 99, CO2 35, BUN 24, creatinine 0.57. Glucose is 177. Albumin is 2.6. Objective - Vital Signs Vital signs: Vital Signs Temp 97.4 F L 03/26/24 04:21 Pulse 67 03/26/24 12:00 Resp 16 03/26/24 12:00 BP 112/63 03/26/24 12:00 Pulse Ox 92 L 03/26/24 12:00 FiO2 40 03/22/24 08:00 Intake & Output 03/25/24 03/26/24 03/26/24 18:59 06:59 18:59 Intake Total 360 20 250 Output Total 1130 400 600 Balance -770 -380 -350 Weight 70.5 kg Intake: IV 20 20 20 Invasive Line 6 20 20 20 Oral 340 230 Output: Urine 1130 400 600 Other: Voiding Method Indwelling Catheter Indwelling Catheter Indwelling Catheter ABP, PAP, CO, CI - Last Documented Arterial Blood Pressure 132/50 - Exam No acute distress, oriented 3. No respiratory distress. The patient continues on 2 L. HEENT examination is grossly unremarkable. Mucous membranes are moist. No oral lesions. Neck supple. Full range of motion. No adenopathy thyromegaly or neck vein distention. Cardiovascular examination reveals regular rhythm rate. S1-S2 normal. No S3 or S4. No discernible murmur noted. Lungs reveal clear breath sounds. Breath sounds are equal bilaterally. No adventitious lung sounds including wheezes rhonchi or crackles. Abdomen soft bowel sounds are heard. No masses or tenderness. Extremities are intact. No cyanosis clubbing or edema. No movement right upper extremity. Skin is without rash or lesion. Neurologic examination feels decreased movement right upper extremity. Speech is garbled. - Labs CBC & Chem 7: 03/26/24 06:40 03/26/24 06:40 Labs: Abnormal Lab Results - Last 24 Hours (Table) 03/25/24 03/25/24 03/26/24 Range/Units 16:15 23:48 06:03 WBC (3.8-10.6) k/uL MCHC (31.0-37.0) g/dL RDW (11.5-15.5) % Neutrophils # (1.3-7.7) k/uL Lymphocytes # (1.0-4.8) k/uL Sodium (137-145) mmol/L Carbon Dioxide (22-30) mmol/L BUN (7-17) mg/dL Glucose (74-99) mg/dL POC Glucose (mg/dL) 220 H 186 H 204 H (70-110) mg/dL Calcium (8.4-10.2) mg/dL Total Protein (6.3-8.2) g/dL Albumin (3.5-5.0) g/dL 03/26/24 03/26/24 03/26/24 Range/Units 06:40 06:40 11:35 WBC 13.0 H (3.8-10.6) k/uL MCHC 30.8 L (31.0-37.0) g/dL RDW 15.8 H (11.5-15.5) % Neutrophils # 12.2 H (1.3-7.7) k/uL Lymphocytes # 0.4 L (1.0-4.8) k/uL Sodium 133 L (137-145) mmol/L Carbon Dioxide 35 H (22-30) mmol/L BUN 24 H (7-17) mg/dL Glucose 172 H (74-99) mg/dL POC Glucose (mg/dL) 177 H (70-110) mg/dL Calcium 7.8 L (8.4-10.2) mg/dL Total Protein 4.8 L (6.3-8.2) g/dL Albumin 2.6 L (3.5-5.0) g/dL Assessment and Plan Assessment: 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 Acute on chronic hypoxemic and hypercapnic respiratory failure, S/P intubation and mechanical ventilation with successful extubation on March 21, 2024. History of COPD. Paroxysmal atrial fibrillation. Chronic hypoxemic and hypercapnic respiratory failure. Tobacco dependence syndrome. Severe pulmonary hypertension. History of hypertension. History of hyperlipidemia. Plan: Plan dated March 24, 2024. The patient appears to be relatively stable. The patient does have a small abrasion on the bridge of her nose, suggesting that she did wear the BiPAP last night. On examination, her lung mcgill are clear, and she is in normal sinus rhythm. She continues on saline at 100 cc an hour, nasal cannula 3 L. Labs, x- rays, medications are reviewed. We will continue to follow the patient, and make recommendations along the way. Plan dated March 25, 2024. The patient appears to be doing reasonably well. Labs, x-rays, medications are reviewed. The patient currently is on 2 L. She is getting saline at 10 cc an hour. She is a DO NOT RESUSCITATE patient. We will continue to follow make recommendations along the way. Prognosis is guarded. Pulmonary status is stable. Plan dated March 26, 2024. The patient is seen today in room 360. She continues on O2 2 L. A family member is at the bedside. She is receiving saline at 10 cc an hour. Her speech is soft, she does appropriately respond. I asked her how she is feeling she says okay. Her swallow evaluation, revealed deep penetration without aspiration with thin liquids. We will continue to follow, make recommendations along the way. Prognosis is guarded. She is a DO NOT RESUSCITATE patient. Time with Patient: Less than 30
[2024-03-26 16:33] LABS: Glucose,Whole Blood 193 mg/dL (70-110)
--- NOTE | 2024-03-26 17:20 | P.CONS ---
History of Present Illness - Reason for Consult Consult date: 03/26/24 rehab recommendations. - Chief Complaint CVA - History of Present Illness Mirtha Ponce is a 73-year-old female who lives with her son in a single story apartment, [address] Prior to admission she was independent with mobility and ADLs, drives. Sons are supportive. Patient initially presented to her PCP with complaints of slurring of speech patient was directed to come to ER for further evaluation. Past medical history includes COPD, hypertension. Head CT completed showing right parietal lobe acute/subacute CVA. EKG completed showing sinus rhythm. Chest x-ray completed showing cardiomegaly with pulmonary vascular congestion correlate with serum BNP COPD changes. Lab work revealing troponin 0.379, 0.429 and 0.436, white blood cell 5.7, hemoglobin 15.4 creatinine 0.56 bun 14. At this time neurology services have been consulted MRI of the brain has been ordered CTA of the carot ids ordered. cardiology services consulted. Due to patient's increasing altered mental status changes and concerns for respiratory status, pulmonary services consulted. Patient's BNP also elevated at 6490 will give 1 dose of IV Lasix. On 03/13/2024 low-grade fever of 99.4 pulse 108 respiration 22 blood pressure 123/61 pulse ox 91% on 6 L nasal cannula, she has cough, patient n.p.o. for possible aspiration, will start IV Zosyn and repeat chest x-ray, infectious disease consultation was added. On 03/14/2024 Patient was placed on BiPAP. Patient also started on IV Zosyn for concerns of aspiration pneumonia patient not following commands at this time recommendations for possible Dobbhoff plac ement in order to administer oral medications. . CT scan of the brain, was repeated 03/14/24 and reveals multiple subacute infarcts no acute bleed or mass effect, chest x-ray done this morning reveals diffuse interstitial infiltrates. She was intubed on 03/16/24 for respiratory failure. On 03/21/2024, patient awake following commands on mechanical ventilation sedation remains off. She was extubated. MRI with acute ischemic type changes within the left watershed white matter, left frontal parietal lobes. PM&R consulted for rehab recommendations. Patient has been evaluated by therapies total assist with all mobility and ADLs. Mod-Max assist with SPEECH THERAPY ASSISTANT. 03/26/24: Patient awake and alert in bed, son at bedside. Patient is able to respond yes and no and able to shake her head. Patient's son reports she is having trouble speaking because of the stroke and the fact that she is missing one of her dentures. She denies CP, SOB, and abdominal pain. She is on O2 via NC, does not wear oxygen at home. Patient's son reports she has been 'achy' from being in bed, patient shakes her head yes. She is frustrated that she is having trouble talking and expressing herself. Her sons want rehab for her. She is agreeable to rehab as well. Discussed with IM, going to recommend IPR for a course of rehab and patient will likely still need RYDER afterwards but feel that IPR is the best fit for her to jump start her therapy. IM reports she is getting better every day and more responsive. [facility] is out of network with her insurance, next closest I[facility] would be [facility]. Review of Systems as above in subjective Past Medical History Past Medical History: COPD, Hypertension Additional Past Medical History / Comment(s): diego cataracts History of Any Multi-Drug Resistant Organisms: None Reported Past Surgical History: No Surgical Hx Reported Past Anesthesia/Blood Transfusion Reactions: No Reported Reaction Past Psychological History: No Psychological Hx Reported Past Alcohol Use History: None Reported Past Drug Use History: None Reported - Past Family History Sister(s) Family Medical History: Cancer Additional Family Medical History / Comment(s): lung Medications and Allergies Home Medications Medication Instructions Recorded Confirmed Type Albuterol Inhaler [Ventolin Hfa 2 puff INHALATION RT-Q4H PRN 08/28/18 03/11/24 History Inhaler] Losartan Potassium 100 mg PO DAILY 03/11/24 03/11/24 History Pravastatin Sodium [Pravachol] 40 mg PO DAILY 03/11/24 03/11/24 History metFORMIN HCL 500 mg PO BID 03/11/24 03/11/24 History Allergies Allergy/AdvReac Type Severity Reaction Status Date / Time No Known Allergies Allergy Verified 03/11/24 14:59 Physical Exam Vitals: Vital Signs Temp Pulse Pulse Resp BP BP Pulse Ox 03/26/24 12:00 67 16 112/63 92 L 03/26/24 09:40 80 18 03/26/24 09:30 78 18 98 12/11/24 08:00 74 16 104/57 97 03/26/24 04:21 97.4 F L 66 16 104/65 97 03/26/24 01:52 67 16 03/26/24 00:08 97.7 F 67 16 99/68 99 03/25/24 21:10 68 03/25/24 21:01 68 03/25/24 19:56 97.7 F 84 16 106/57 95 03/25/24 16:23 68 03/25/24 16:10 70 03/25/24 15:06 97.7 F 72 15 105/65 95 Intake and Output 03/25/24 03/26/24 03/26/24 22:59 06:59 14:59 Intake Total 130 10 120 Output Total 900 600 Balance -770 10 -480 Intake: IV 10 10 10 Invasive Line 6 10 10 10 Oral 120 110 Output: Urine 900 600 Other: Voiding Method Indwelling Catheter Indwelling Catheter Indwelling Catheter Weight 70.5 kg EXAM; General: WDWN, female sitting up in bed, appears older than age, NAD Head: Normocephalic, atraumatic. Eyes: Symmetric Ears: Symmetric. Hearing within normal limits. Mouth: Clear, absent dentition Cardiac: Calves supple, non tender, trace LE edema Lungs: Breathing comfortably on O2 via NC Chest symmetric. Abdomen: Soft, nontender. Extremities: Arthritic changes consistent with age. Neurological: Alert and oriented x 2- patient unable to express but when given options for name and location she is able to shake her head yes to the correct option Expressive> receptive aphasia. She is able to follow 2-3 step commands. + tongue deviation to the right, unable to perform HTS and FTN Sensation: Intact and symmetrical limbs. Musculoskeletal: right UE > LE hemiparesis, generalized weakness MMT UE Sh Abd EE EF FABD WE HG Right 2+ 3 4- 4 Left 0 0 0 0 MMT LE HF KE DF EHL Right 2 2 2 2 Left 3 4 4+ 4+ Reflexes Biceps Triceps Brachioradialis Patella Achilles Babinski Hoffmans Right + Left - Skin: Skin intact where visible to head, neck, and bilateral upper and lower extremities EXCEPT: multiple areas of ecchymosis to UE, PIV Psych: Calm, cooperative Results CBC & Chem 7: 03/26/24 06:40 03/26/24 06:40 Labs: Abnormal Lab Results - Last 24 Hours (Table) 03/25/24 03/25/24 03/26/24 Range/Units 16:15 23:48 06:03 WBC (3.8-10.6) k/uL MCHC (31.0-37.0) g/dL RDW (11.5-15.5) % Neutrophils # (1.3-7.7) k/uL Lymphocytes # (1.0-4.8) k/uL Sodium (137-145) mmol/L Carbon Dioxide (22-30) mmol/L BUN (7-17) mg/dL Glucose (74-99) mg/dL POC Glucose (mg/dL) 220 H 186 H 204 H (70-110) mg/dL Calcium (8.4-10.2) mg/dL Total Protein (6.3-8.2) g/dL Albumin (3.5-5.0) g/dL 03/26/24 03/26/24 03/26/24 Range/Units 06:40 06:40 11:35 WBC 13.0 H (3.8-10.6) k/uL MCHC 30.8 L (31.0-37.0) g/dL RDW 15.8 H (11.5-15.5) % Neutrophils # 12.2 H (1.3-7.7) k/uL Lymphocytes # 0.4 L (1.0-4.8) k/uL Sodium 133 L (137-145) mmol/L Carbon Dioxide 35 H (22-30) mmol/L BUN 24 H (7-17) mg/dL Glucose 172 H (74-99) mg/dL POC Glucose (mg/dL) 177 H (70-110) mg/dL Calcium 7.8 L (8.4-10.2) mg/dL Total Protein 4.8 L (6.3-8.2) g/dL Albumin 2.6 L (3.5-5.0) g/dL Assessment and Plan Assessment: # Hemiplegia secondary to Acute ischemic stroke,left fronto/parietal/occipital region and precentral region and appears embolic -thought to be cardioembolic given Afib -therapies #Global Aphasia and altered mental status secondary from CVA #Ventilator dependent respiratory failure s/p extubation on 03/21 # Acute CHF exacerbation # Elevated troponins # nicotine dependence greater than 1 pack/day # History of COPD # History of essential hypertension # Concerns of aspiration pneumonia patient started on IV Zosyn infectious disease service following # Your medical dx and management Dispo: Patient is performing significantly below her PLOF. Family is working on guardianship. Patient does not have Out of Network Benefits for IPR at [facility]. Patient still could benefit from a stay at [facility], but would likely need [facility] afterwards given the severity of her CVA. She has shown improvements in her alertness and following commands since extubation. Recommend Referral to [facility] Patient seen and examined in coordination with Dr Gibson Thank you for consulting our services.
[2024-03-26 23:54] LABS: Glucose,Whole Blood 180 mg/dL (70-110)
[2024-03-27 06:22] LABS: Glucose,Whole Blood 194 mg/dL (70-110)
[2024-03-27 07:31] LABS: Basophils % (A) 0 %; Eosinophils % (A) 0 %; HCT 43.1 % (34.0-46.0); HGB 13.1 gm/dL (11.4-16.0); Hypochromasia Marked; Lymphocytes # (A) 0.4 k/uL (1.0-4.8); Lymphocytes % (A) 3 %; MCH 26.1 pg (25.0-35.0); MCHC 30.4 g/dL (31.0-37.0); Mean Platelet Volume 7.8; Monocytes # (A) 0.4 k/uL (0-1.0); Monocytes % (A) 3 %; Neutrophils # (A) 13.9 k/uL (1.3-7.7); Neutrophils % (A) 94 %; Platelet Count 297 k/uL (150-450); RBC 5.01 m/uL (3.80-5.40); RDW 15.9 % (11.5-15.5); WBC 14.9 k/uL (3.8-10.6)
[2024-03-27 07:42] LABS: ALT 23 U/L (4-34); AST 18 U/L (14-36); African American GFR (CKD) >90 (>60 ml/min/1.73 sqM); Albumin 2.5 g/dL (3.5-5.0); Alkaline Phosphatase 35 U/L (38-126); Anion Gap -1 mmol/L; Blood Urea Nitrogen 20 mg/dL (7-17); Calcium 7.6 mg/dL (8.4-10.2); Carbon Dioxide 36 mmol/L (22-30); Chloride 101 mmol/L (98-107); Glucose 165 mg/dL (74-99); Non-African American GFR(CKD) >90 (>60 ml/min/1.73 sqM); Potassium 4.4 mmol/L (3.5-5.1); Sodium 136 mmol/L (137-145); Total Bilirubin 0.8 mg/dL (0.2-1.3); Total Protein 4.8 g/dL (6.3-8.2)
[2024-03-27 11:39] LABS: Glucose,Whole Blood 144 mg/dL (70-110)
--- NOTE | 2024-03-27 13:02 | P.PN ---
Subjective Progress Note Date: 03/26/24 Principal diagnosis: Reason for follow-up is pneumonia Patient is a 73-year-old female with a past medical history significant for COPD hypertension hyperlipidemia patient was brought into the hospital for evaluation of mental status changes and was being worked up for stroke did have worsening of respiratory status concerning for aspiration prompted this consultation. Patient did have worsening of her respiratory status got intubated on 03/16/2024 On today's evaluation that is 03/26/2024,the patient denies any fever or any chills, patient is breathing comfortably on 2 L nasal cannula oxygen, the patient slightly more awake but not very good historian had no vomiting or diarrhea has been reported Patient white count is 13,000, creatinine 0.57 Objective - Vital Signs Vital signs: Vital Signs Temp 97.4 F L 03/26/24 04:21 Pulse 80 03/26/24 09:40 Resp 18 03/26/24 09:40 BP 104/57 03/26/24 08:00 Pulse Ox 98 03/26/24 09:30 FiO2 40 03/22/24 08:00 Intake & Output 03/25/24 03/26/24 03/26/24 18:59 06:59 18:59 Intake Total 360 20 120 Output Total 1130 400 600 Balance -770 -380 -480 Weight 70.5 kg Intake: IV 20 20 10 Invasive Line 6 20 20 10 Oral 340 110 Output: Urine 1130 400 600 Other: Voiding Method Indwelling Catheter Indwelling Catheter Indwelling Catheter ABP, PAP, CO, CI - Last Documented Arterial Blood Pressure 132/50 - Exam GENERAL DESCRIPTION: An elderly female lying in bed in no distress RESPIRATORY SYSTEM: Unlabored breathing , decreased breath sounds at bases HEART: S1 S2 regular rate and rhythm , ABDOMEN: Soft , no tenderness EXTREMITIES: No edema feet - Labs CBC & Chem 7: 03/27/24 06:56 03/27/24 06:56 Labs: Abnormal Lab Results - Last 24 Hours (Table) 03/25/24 03/25/24 03/26/24 Range/Units 16:15 23:48 06:03 WBC (3.8-10.6) k/uL MCHC (31.0-37.0) g/dL RDW (11.5-15.5) % Neutrophils # (1.3-7.7) k/uL Lymphocytes # (1.0-4.8) k/uL Sodium (137-145) mmol/L Carbon Dioxide (22-30) mmol/L BUN (7-17) mg/dL Glucose (74-99) mg/dL POC Glucose (mg/dL) 220 H 186 H 204 H (70-110) mg/dL Calcium (8.4-10.2) mg/dL Total Protein (6.3-8.2) g/dL Albumin (3.5-5.0) g/dL 03/26/24 03/26/24 03/26/24 Range/Units 06:40 06:40 11:35 WBC 13.0 H (3.8-10.6) k/uL MCHC 30.8 L (31.0-37.0) g/dL RDW 15.8 H (11.5-15.5) % Neutrophils # 12.2 H (1.3-7.7) k/uL Lymphocytes # 0.4 L (1.0-4.8) k/uL Sodium 133 L (137-145) mmol/L Carbon Dioxide 35 H (22-30) mmol/L BUN 24 H (7-17) mg/dL Glucose 172 H (74-99) mg/dL POC Glucose (mg/dL) 177 H (70-110) mg/dL Calcium 7.8 L (8.4-10.2) mg/dL Total Protein 4.8 L (6.3-8.2) g/dL Albumin 2.6 L (3.5-5.0) g/dL Assessment and Plan (1) Aspiration pneumonia Current Visit: Yes Status: Acute Code(s): J69.0 - PNEUMONITIS DUE TO INHALATION OF FOOD AND VOMIT SNOMED Code(s): 667303719 (2) Leukocytosis Current Visit: Yes Status: Acute Code(s): D72.829 - ELEVATED WHITE BLOOD CELL COUNT, UNSPECIFIED SNOMED Code(s): 132175322 Plan: 1patient with worsening respiratory status and this patient initially brought into the hospital with slurred speech and being worked up for a CVA with worsening of respiratory status requiring BiPAP and a question of possible aspiration. 2patient did have CT angiogram of the chest shows consolidation concerning for pneumonia possible aspiration repeat CT of the brain concerning for subacute infarct with some progression neurology is following the patient 3patient did have worsening of respiratory status requiring intubation sputum culture has been obtained which are so far negative patient subsequently has been successfully extubated 4patient is afebrile white count slightly up likely due to steroids, patient has received adequate Zosyn for underlying aspiration pneumonia and can be safely discontinued Dictation was produced using [employer] dictation software. please excuse any grammatical, word or spelling errors. Time with Patient: Less than 30
--- NOTE | 2024-03-27 13:03 | P.PN ---
Subjective Progress Note Date: 03/27/24 Principal diagnosis: Reason for follow-up is pneumonia Patient is a 73-year-old female with a past medical history significant for COPD hypertension hyperlipidemia patient was brought into the hospital for evaluation of mental status changes and was being worked up for stroke did have worsening of respiratory status concerning for aspiration prompted this consultation. Patient did have worsening of her respiratory status got intubated on 03/16/2024 On today's evaluation that is 03/27/2024,the patient remains to be afebrile, patient is on 2 L nasal cannula supplemental oxygen, the patient denies any shortness of breath no chest pain or significant cough.Patient denies having any nausea or vomiting, no abdominal pain and no diarrhea has been reported. Patient white count is 14.8, creatinine 0.58 Objective - Vital Signs Vital signs: Vital Signs Temp 97.6 F 03/27/24 03:51 Pulse 70 03/27/24 12:00 Resp 16 03/27/24 12:00 BP 112/68 03/27/24 12:00 Pulse Ox 90 L 03/27/24 12:00 FiO2 40 03/22/24 08:00 Intake & Output 03/26/24 03/27/24 03/27/24 18:59 06:59 18:59 Intake Total 250 30 Output Total 608 795 3032 Balance -350 -595 -1000 Weight 70.5 kg Intake: IV 20 30 Invasive Line 6 20 30 Oral 230 Output: Urine 387 112 6773 Other: Voiding Method Indwelling Catheter Indwelling Catheter Indwelling Catheter ABP, PAP, CO, CI - Last Documented Arterial Blood Pressure 132/50 - Exam GENERAL DESCRIPTION: An elderly female lying in bed in no distress RESPIRATORY SYSTEM: Unlabored breathing , decreased breath sounds at bases HEART: S1 S2 regular rate and rhythm , ABDOMEN: Soft , no tenderness EXTREMITIES: No edema feet - Labs CBC & Chem 7: 03/27/24 06:56 03/27/24 06:56 Labs: Abnormal Lab Results - Last 24 Hours (Table) 03/26/24 03/26/24 03/27/24 Range/Units 16:32 23:52 06:20 WBC (3.8-10.6) k/uL MCHC (31.0-37.0) g/dL RDW (11.5-15.5) % Neutrophils # (1.3-7.7) k/uL Lymphocytes # (1.0-4.8) k/uL Sodium (137-145) mmol/L Carbon Dioxide (22-30) mmol/L BUN (7-17) mg/dL Glucose (74-99) mg/dL POC Glucose (mg/dL) 193 H 180 H 194 H (70-110) mg/dL Calcium (8.4-10.2) mg/dL Alkaline Phosphatase (38-126) U/L Total Protein (6.3-8.2) g/dL Albumin (3.5-5.0) g/dL 03/27/24 03/27/24 03/27/24 Range/Units 06:56 06:56 11:38 WBC 14.9 H (3.8-10.6) k/uL MCHC 30.4 L (31.0-37.0) g/dL RDW 15.9 H (11.5-15.5) % Neutrophils # 13.9 H (1.3-7.7) k/uL Lymphocytes # 0.4 L (1.0-4.8) k/uL Sodium 136 L (137-145) mmol/L Carbon Dioxide 36 H (22-30) mmol/L BUN 20 H (7-17) mg/dL Glucose 165 H (74-99) mg/dL POC Glucose (mg/dL) 144 H (70-110) mg/dL Calcium 7.6 L (8.4-10.2) mg/dL Alkaline Phosphatase 35 L (38-126) U/L Total Protein 4.8 L (6.3-8.2) g/dL Albumin 2.5 L (3.5-5.0) g/dL Assessment and Plan (1) Aspiration pneumonia Current Visit: Yes Status: Acute Code(s): J69.0 - PNEUMONITIS DUE TO INHALATION OF FOOD AND VOMIT SNOMED Code(s): 803155814 (2) Leukocytosis Current Visit: Yes Status: Acute Code(s): D72.829 - ELEVATED WHITE BLOOD CELL COUNT, UNSPECIFIED SNOMED Code(s): 409087151 Plan: 1patient with worsening respiratory status and this patient initially brought into the hospital with slurred speech and being worked up for a CVA with worsening of respiratory status requiring BiPAP and a question of possible aspiration. 2patient did have CT angiogram of the chest shows consolidation concerning for pneumonia possible aspiration repeat CT of the brain concerning for subacute infarct with some progression neurology is following the patient 3patient did have worsening of respiratory status requiring intubation sputum culture has been obtained which are so far negative patient subsequently has been successfully extubated 4-patient has received adequate Zosyn for underlying aspiration pneumonia we will go ahead and discontinue and monitor the patient closely off antibiotic 5patient is afebrile white count slightly up likely due to steroids versus oropharyngeal candidiasis we will check inflammatory markers with a.m. lab Dictation was produced using [employer] dictation software. please excuse any grammatical, word or spelling errors. Time with Patient: Less than 30
--- NOTE | 2024-03-27 13:24 | P.PN ---
Subjective Progress Note Date: 03/27/24 Principal diagnosis: CVA. Patient was seen today , patient was intubated yesterday, and she is now on mechanical ventilation. Patient developed worsening hypoxic and hyp ercapnic respiratory failure required intubation mechanical ventilation. Patient is now on assist-control rate of 20 tidal volume 400 FiO2 40% and PEEP of 5 ABG showed a pO2 of 93 pCO2 45 pH of 7.47 hence no changes were made in her present ventilator settings. Patient is on vital AF at 10 cc/h she is also on propofol at 50 mcg/kg/min, amiodarone 0.5 mg/min heparin drip IV fluid 0.9 normal saline at 75 cc/h Solu-Medrol 60 every 6 Zosyn empirically for possible aspiration. Patient had a presentation of 2 weeks history of headache and stuttering. She was found to have right parietal CVA. Patient was intubated on 03/16 remains intubated and sedated. Chest x-ray showed COPD with ongoing int erstitial opacities throughout both lungs. And opacity noted in the left retrocardiac area suspicious for pneumonia with some opacity in the right base that seems to be improving WBC count today is 7.7 hemoglobin 13.5 basic metabolic profile is normal, BUN is 40 creatinine 0.83 Patient was seen today on 03/18/2024, remains in ICU, intubated and mechanically ventilated, on assist-control rate of 20 tidal volume 400 FiO2 40% and PEEP of 5 ABG showed a pO2 of 134 pCO2 44 pH of 7.44. Based on ABG I recommended cutting down her FiO2 to 35% and decreased today down to 18. Patient is on vital HP at 10/35 she is also on propofol at 20 mcg/kg/min, heparin drip IV fluid 0.9 normal saline at 75 cc/h patient is receiving Zosyn empirically. She had fluid balance +1 L over the last 24 hours. WBC count is 8.7 hemoglobin 13.9 platelets are 144. Electrolytes are normal renal profile is normal with BUN of 33 creatinine 0.61 blood sugar is 204 chest x-ray is showing nonspecific interstitial infiltr ates and a patchy left retrocardiac opacity. Seen today on 03/19/2024, patient remains in the ICU, intubated and mechanically ventilated, on assist-control rate of 18 tidal volume 400 FiO2 35% and PEEP of 5 ABG showed a pO2 of 96 pCO2 46 pH of 7.43 patient was taken off propofol yesterday, remains on propofol, and does not seem to follow any instructions, she opens her eyes, withdraws to pain, moves her left upper extremity withdraws to pain mostly. Patient remains on heparin, IV fluid 0.9 at 75 cc/h vital HP at 35/35. Remains on Solu-Medrol and on Zosyn. Patient to remain off propofol today, and no plans to place her back on propofol for now. Would like to get further assessment of her mental status as she seems to be not responding purposefully to any stimuli except withdraws to pain. Patient opens her eyes but does not follow any instructions. WBC is 7.0 hemoglobin 11, basic metabolic profile noted, potassium is a bit low at 3.1 but renal profile is normal. Patient was evaluated today on 03/20/2024, remains in the ICU, intubated and mechanically ventilated. Patient has been off propofol now for 2 days, opening eyes, wiggling toes, squeezing hands, but still not fully awake. And it takes a lot of repetition of instructions to make the patient understand or comprehend what she is being told. Patient remains extremely slow, she is on assist- control rate of 18 tidal volume 400 FiO2 35% PEEP of 5 ABG showed a pO2 of 76 pCO2 45 pH of 7.44. Chest x-ray showed slight worsening of her interstitial opacities bilaterally. Patient is on Zosyn.WBC count is 6.7 hemoglobin 9.6. Basic metabolic profile is normal renal profile is normal. Sputum cultures are nondiagnostic showed mostly normal rubin Patient was evaluated today on 03/21/2024, patient remains in the ICU, intubated and mechanically ventilated, on assist-control rate of 18 tidal volume 400 FiO2 35% PEEP of 5 ABG showed a pO2 of 83 pCO2 45 pH of 7.44 patient remains off propofol, she is arousable she is awake, follows simple instructions cannot use her right upper extremity seems to be paralyzed. Related to her acute CVA involving the left parietal area. Patient remains on heparin, on IV fluid at 75 cc/h vital AF at 55/55, patient is also on Solu-Medrol and Zosyn. Family is noted at bedside, patient is the best I have seen her today as far as her mental status is concerned, she seems to be more awake, more appropriate, and feels to follow instructions quite well. Hence I recommended a trial of pressure support of 10 and CPAP, and if tolerated I plan to proceed with further weaning and possibly extubationChest x-ray showed COPD with similar diffuse bilateral interstitial patchy opacities patient is on antibiotics for presumptive aspiration pneumonia WBC count is 11.3 hemoglobin is 10, Basic metabolic profile is normal renal profile is normal Patient was seen today on 03/22/2024, patient remains in the ICU, she was extubated yesterday, extubated to BiPAP, today she was placed on 4 L nasal cannula, patient is doing better tolerating extubation so far quite well. She was on 03/21/40% on BiPAP now on 4 L nasal cannula she seems to be very appropriate, follows simple instructions. Chest x-ray continues to show nonspecific interstitial infiltrates/edema hence I gave her a dose of Lasix 20 mg IV push cut down her IV fluid to KVO, cut down her Solu-Medrol to 40 mg IV push every 12 hours. Her CODE STATUS has been changed to DNR. Patient remains on heparin but this will be transition to Eliquis today remains on Zosyn for presumptive aspiration. WBC count is 12.9 hemoglobin is 11.6 electrolytes are normal BUN is 32 creatinine 0.49. He was seen today on 03/23/2024, remains in the ICU, patient continues to tolerate extubation well over the last couple of days. She seems to be more and more awake, follows simple instructions, continues to have right upper extremity weakness/paralysis. Speech seems to be also affected/patient has garbled speech. Today the plan is to discontinue her lines, establish a peripheral line, continue antibiotics for now, and I plan to transfer the patient out of the ICU to a regular medical floor/monitored bed. Remains on Eliquis and she remains on Zosyn WBC count is 14.8 hemoglobin is 12.4 electrolytes are normal renal profile is normal no chest x-ray was done today, patient is maintaining excellent saturation on 4 L nasal cannula Progress note dated March 24, 2024. 73-year-old female who was admitted back on March 11, 2024. She has been here in the hospital for 13 days. She is getting saline at 100 cc an hour, and nasal O2 at 3 L by nasal cannula. The BiPAP device is in the room, but it is unclear to me whether or not the patient used it last night. Settings include 12/6, with 40%. The patient appears to be relatively comfortable, and in no acute distress. Current labs are good a white count 11, hemoglobin 13.3, h ematocrit 44.2, and a platelet count of 279,000. Sodium 134, potassium 4.7, chlorides 99, CO2 35, BUN 26, creatinine 0.59. Glucose is 158. Albumin is 2.5. Progress note dated March 25, 2024. 73-year-old female who was admitted back on March 11, 2024. The patient is seen today in room 360. She remains on oxygen at 2 L. The patient is getting saline at 10 cc an hour. The patient was in the intensive care unit, on a ventilator previously. She is a DO NOT RESUSCITATE patient. No new labs today other than a glucose of 155. Brain CT from yesterday shows no acute intracranial process. There is remote encephalomalacia involving the left cerebrum related to previous injury, and nonspecific white matter changes. Progress note dated March 26, 2024. 73-year-old female admitted back on March 11, 2024. The patient is seen today in room 360. She continues on O2 at 2 L. She is getting saline at 10 cc an hour. The patient is resting comfortably in bed. No acute distress. She is awake and alert. White count 13, hemoglobin 13, macro 42.2, platelet count 209,000. Sodium 133, potassium 4.4, chlorides 99, CO2 35, BUN 24, creatinine 0.57. Glucose is 177. Albumin is 2.6. Progress note dated March 27, 2024. 73-year-old female admitted on March 11. She was admitted with a diagnosis of CVA. Currently, she is seen in room 360. She is on saline at 10 cc an hour. She is getting oxygen by nasal cannula 2 L. When spoken to, she mumbles. Current labs include a white count 14.9, hemoglobin 13.1, macro 43.1, and a normal platelet count. Sodium 136, potassium 4.4, chlorides 101, CO2 36, BUN 20, creatinine 0.58. Glucose 144. Albumin 2.5. Objective - Vital Signs Vital signs: Vital Signs Temp 97.6 F 03/27/24 03:51 Pulse 70 03/27/24 12:00 Resp 16 03/27/24 12:00 BP 112/68 03/27/24 12:00 Pulse Ox 90 L 03/27/24 12:00 FiO2 40 03/22/24 08:00 Intake & Output 03/26/24 03/27/24 03/27/24 18:59 06:59 18:59 Intake Total 250 30 Output Total 066 152 1387 Balance -350 -595 -1000 Weight 70.5 kg Intake: IV 20 30 Invasive Line 6 20 30 Oral 230 Output: Urine [id number] Other: Voiding Method Indwelling Catheter Indwelling Catheter Indwelling Catheter ABP, PAP, CO, CI - Last Documented Arterial Blood Pressure 132/50 - Exam No acute distress, oriented 3. No respiratory distress. The patient continues on 2 L. HEENT examination is grossly unremarkable. Mucous membranes are moist. No oral lesions. Neck supple. Full range of motion. No adenopathy thyromegaly or neck vein distention. Cardiovascular examination reveals regular rhythm rate. S1-S2 normal. No S3 or S4. No discernible murmur noted. Lungs reveal clear breath sounds. Breath sounds are equal bilaterally. No adventitious lung sounds including wheezes rhonchi or crackles. Abdomen soft bowel sounds are heard. No masses or tenderness. Extremities are intact. No cyanosis clubbing or edema. No movement right upper extremity. Skin is without rash or lesion. Neurologic examination feels decreased movement right upper extremity. Speech is garbled. - Labs CBC & Chem 7: 03/27/24 06:56 03/27/24 06:56 Labs: Abnormal Lab Results - Last 24 Hours (Table) 03/26/24 03/26/24 03/27/24 Range/Units 16:32 23:52 06:20 WBC (3.8-10.6) k/uL MCHC (31.0-37.0) g/dL RDW (11.5-15.5) % Neutrophils # (1.3-7.7) k/uL Lymphocytes # (1.0-4.8) k/uL Sodium (137-145) mmol/L Carbon Dioxide (22-30) mmol/L BUN (7-17) mg/dL Glucose (74-99) mg/dL POC Glucose (mg/dL) 193 H 180 H 194 H (70-110) mg/dL Calcium (8.4-10.2) mg/dL Alkaline Phosphatase (38-126) U/L Total Protein (6.3-8.2) g/dL Albumin (3.5-5.0) g/dL 03/27/24 03/27/24 03/27/24 Range/Units 06:56 06:56 11:38 WBC 14.9 H (3.8-10.6) k/uL MCHC 30.4 L (31.0-37.0) g/dL RDW 15.9 H (11.5-15.5) % Neutrophils # 13.9 H (1.3-7.7) k/uL Lymphocytes # 0.4 L (1.0-4.8) k/uL Sodium 136 L (137-145) mmol/L Carbon Dioxide 36 H (22-30) mmol/L BUN 20 H (7-17) mg/dL Glucose 165 H (74-99) mg/dL POC Glucose (mg/dL) 144 H (70-110) mg/dL Calcium 7.6 L (8.4-10.2) mg/dL Alkaline Phosphatase 35 L (38-126) U/L Total Protein 4.8 L (6.3-8.2) g/dL Albumin 2.5 L (3.5-5.0) g/dL Assessment and Plan Assessment: 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 Acute on chronic hypoxemic and hypercapnic respiratory failure, S/P intubation and mechanical ventilation with successful extubation on March 21, 2024. History of COPD. Paroxysmal atrial fibrillation. Chronic hypoxemic and hypercapnic respiratory failure. Tobacco dependence syndrome. Severe pulmonary hypertension. History of hypertension. History of hyperlipidemia. Plan: Plan dated March 24, 2024. The patient appears to be relatively stable. The patient does have a small abrasion on the bridge of her nose, suggesting that she did wear the BiPAP last night. On examination, her lung mcgill are clear, and she is in normal sinus rhythm. She continues on saline at 100 cc an hour, nasal cannula 3 L. Labs, x- rays, medications are reviewed. We will continue to follow the patient, and make recommendations along the way. Plan dated March 25, 2024. The patient appears to be doing reasonably well. Labs, x-rays, medications are reviewed. The patient currently is on 2 L. She is getting saline at 10 cc an hour. She is a DO NOT RESUSCITATE patient. We will continue to follow make recommendations along the way. Prognosis is guarded. Pulmonary status is stable. Plan dated March 26, 2024. The patient is seen today in room 360. She continues on O2 2 L. A family member is at the bedside. She is receiving saline at 10 cc an hour. Her speech is soft, she does appropriately respond. I asked her how she is feeling she says okay. Her swallow evaluation, revealed deep penetration without aspiration with thin liquids. We will continue to follow, make recommendations along the way. Prognosis is guarded. She is a DO NOT RESUSCITATE patient. Plan dated March 27, 2024. The patient is seen today in room 360. She continues on oxygen at 2 L. She is not receiving any IV fluids other than saline at 10 cc an hour. Her examination is unremarkable. She is she is in normal sinus rhythm. Her lungs are clear to auscultation. Labs, x-rays, and all medications are reviewed. The patient's overall prognosis remains guarded. The patient will likely need rehabilitation postdischarge. Time with Patient: Less than 30
--- NOTE | 2024-03-27 14:04 | P.PN ---
Subjective Progress Note Date: 03/27/24 I am following-up with patient and she is sitting up in a chair and is about the same. Objective - Vital Signs Vital signs: Vital Signs Temp 97.6 F 03/27/24 03:51 Pulse 70 03/27/24 12:00 Resp 16 03/27/24 12:00 BP 112/68 03/27/24 12:00 Pulse Ox 90 L 03/27/24 12:00 FiO2 40 03/22/24 08:00 Intake & Output 03/26/24 03/27/24 03/27/24 18:59 06:59 18:59 Intake Total 250 30 Output Total 083 049 6273 Balance -350 -595 -1000 Weight 70.5 kg Intake: IV 20 30 Invasive Line 6 20 30 Oral 230 Output: Urine 195 [id number] Other: Voiding Method Indwelling Catheter Indwelling Catheter Indwelling Catheter ABP, PAP, CO, CI - Last Documented Arterial Blood Pressure 132/50 - Exam General: Sitting up in a recliner chair and does not appear in acute distress.. Neuro: Very limited Patient is awake. She uttered yeah but most part not verbalizing. Upon asking her to show me a thumbs up she showed me the whole hand on the left. Has good eye contact. Motor: Strength is limited in assessment individual muscle strength. Moving the left upper extremity above gravity. No movement of the right upper extremity. Wiggle toes (left >right). - Labs CBC & Chem 7: 03/27/24 06:56 03/27/24 06:56 Labs: Abnormal Lab Results - Last 24 Hours (Table) 03/26/24 03/26/24 03/27/24 Range/Units 16:32 23:52 06:20 WBC (3.8-10.6) k/uL MCHC (31.0-37.0) g/dL RDW (11.5-15.5) % Neutrophils # (1.3-7.7) k/uL Lymphocytes # (1.0-4.8) k/uL Sodium (137-145) mmol/L Carbon Dioxide (22-30) mmol/L BUN (7-17) mg/dL Glucose (74-99) mg/dL POC Glucose (mg/dL) 193 H 180 H 194 H (70-110) mg/dL Calcium (8.4-10.2) mg/dL Alkaline Phosphatase (38-126) U/L Total Protein (6.3-8.2) g/dL Albumin (3.5-5.0) g/dL 03/27/24 03/27/24 03/27/24 Range/Units 06:56 06:56 11:38 WBC 14.9 H (3.8-10.6) k/uL MCHC 30.4 L (31.0-37.0) g/dL RDW 15.9 H (11.5-15.5) % Neutrophils # 13.9 H (1.3-7.7) k/uL Lymphocytes # 0.4 L (1.0-4.8) k/uL Sodium 136 L (137-145) mmol/L Carbon Dioxide 36 H (22-30) mmol/L BUN 20 H (7-17) mg/dL Glucose 165 H (74-99) mg/dL POC Glucose (mg/dL) 144 H (70-110) mg/dL Calcium 7.6 L (8.4-10.2) mg/dL Alkaline Phosphatase 35 L (38-126) U/L Total Protein 4.8 L (6.3-8.2) g/dL Albumin 2.5 L (3.5-5.0) g/dL Assessment and Plan Assessment: Ms. Ponce is a 73-year-old female with history of hypertension, COPD, and bilateral cataracts who was brought to the hospital on March 11 with some speech abnormalities and lethargy. She was noted on CT scan to have a right parietal as well as left precentral gyrus infarct. I personally reviewed it and felt over the left fronto/parietal region) Acute ischemic stroke (right parietal as well as left precentral gyrus infarct on CT per my colleague and per reading radiologist bilateral hemsiphere but I felt over the left fronto/parietal/occipital region and precentral region) and appears embolic (cardioembolic, especially with Atrial fibrillation). Examination patient is mute but is following commands has plegia of the right upper extremity and some weakness more on the right lower extremity Respiratory distress and is intubated on ventilator Paroxysmal atrial fibrillation Severe pulmonary hypertension Hypertension Hyperlipidemia History of COPD Tobacco dependence Plan: MRI brain is reported as acute ischemic type changes within the left watershed white matter left frontal parietal lobe. Chronic appearing periventricular white matter changes. I personally reviewed the MRI and I do agree the patient has ischemic changes over the left frontal parietal region and some in the left temporal as well as felt some over the right inferior temporal seems more suggestive of embolic. Patient is on Eliquis 5 mg twice daily as well as aspirin 325mg daily Patient is on Lipitor 40 mg daily. Continue neurochecks Cardiac monitoring PT OT and HEAD OF [employer] are consulted. Will benefit from inpatient rehab. For DVT prophylaxis: On Eliquis. Discharge recommend the patient to follow-up with a neurologist as an outpatient within 2 weeks. Upon discharge recommend the patient to follow-up with a neurologist as an outpatient within 2 weeks There is no further neurological workup. Will sign off. Please reconsult if needed. Time with Patient: Less than 30
[2024-03-27 16:26] LABS: Glucose,Whole Blood 197 mg/dL (70-110)
--- NOTE | 2024-03-27 16:50 | P.PN ---
Subjective Progress Note Date: 03/27/24 Mirtha Ponce is a 73-year-old female patient who initially presented to her PCP with complaints of slurring of speech patient was directed to come to ER for further evaluation. At this time patient is in bed sleeping not following commands or answering questions. Family at bedside history obtained through them and medical records. According to family patient was found to be having slurred speech patient did not want to come to ER at that time so was taken to PCP. Per family patient is a heavy smoker but denies any alcohol or drug use. Denies any recent illness. Additional medical history includes COPD, hypertension. Head CT completed showing right parietal lobe acute/subacute CVA. EKG completed showing sinus rhythm. Chest x-ray completed showing cardiomegaly with pulmonary vascular congestion correlate with serum BNP COPD changes. Lab work revealing troponin 0.379, 0.429 and 0.436, white blood cell 5.7, hemoglobin 15.4 creatinine 0.56 bun 14. At this time neurology services have been consulted MRI of the brain has been ordered CTA of the carotids ordered. Will order 2D echo and consult cardiology services. Due to patient's increasing altered mental status changes and concerns for respiratory status we will consult pulmonary services. Patient's BNP also elevated at 6490 will give 1 dose of IV Lasix. Current vital signs temp 97.9, heart rate 96, respiratory rate 18, blood pressure 100/59 with a pulse ox of 95% on nonrebreather. On 03/13/2024 patient was seen and examined on the medical floor she is alert and oriented x 3 in no apparent distress, she has a low-grade fever of 99.4 pulse 108 respiration 22 blood pressure 123/61 pulse ox 91% on 6 L nasal cannula, she has cough, with minimal sputum production she denies any chest pain or shortness of breath no nausea or vomiting no abdominal pain no diarrhea and no urinary symptoms. At this time will keep patient n.p.o. for possible aspiration, will start IV Zosyn and repeat chest x-ray, infectious disease con sultation was added, will continue with IV heparin due to elevated troponin levels, awaiting cardiology input. Neurology consult reviewed. On 03/14/2024 patient remains lethargic in the intensive care unit. Patient was placed on BiPAP. Patient also started on IV Zosyn for concerns of aspiration pneumonia patient not following commands at this time recommendations for possible Dobbhoff placement in order to administer oral medications. Neurology services are following MRI has been ordered but cannot be performed while patient is on BiPAP and heparin. Critical care services following infectious disease, cardiology and neurology services following. Current vital signs temp 98.1, heart rate 96, respiratory rate 27, blood pressure 119/69 with a pulse ox of 96% on BiPAP with an FiO2 of 45%. Family at bedside all questions answered On 03/15/2024 patient was seen and examined in the intensive care unit, she is not responsive at this time she is maintained on BiPAP, vital examination r eveals a temperature of 97.9 pulse 89 respiration 24 blood pressure 110/62 pulse ox 99% on FiO2 45% White blood count is 8.7 hemoglobin 13.8 platelet count 249 arterial blood gas revealed a pH of 7.24 pCO2 95% PaO2 96%, BUN 43 creatinine 0.69. Patient is followed by neurology, infectious disease, cardiology and pulmonary critical care, she remains on IV heparin. CT scan of the brain, was repeated yesterday and reveals multiple subacute infarcts no acute bleed or mass effect, chest x-r ay done this morning reveals diffuse interstitial infiltrates. Prognosis is guarded. On 03/16/2024 patient remains in the intensive care unit ABGs continued to decline despite BiPAP. Plans for intubation today per critical care.. Family at bedside. Plan discussed with family and nursing staff. Patient remains on IV Zosyn and IV Cardizem. Prognosis remains guarded. Neurology, infectious disease, cardiology and critical care services are all following. On 03/17/2024 patient was seen and examined in the intensive care unit, she is intubated sedated maintained on mechanical ventilation, assist control rate of 20 FiO2 40% with a PEEP of 5, she is maintained on IV antibiotic Zosyn and IV Solu-Medrol 60 mg every 6 hours. White blood count is 7.7 hemoglobin 13.5 platelet count 169 BUN 40 creatinine 0.83, patient is still maintained on IV heparin. Will continue to follow closely On 03/18/2024 patient remains in the intensive care unit intubated and sedated on mechanical ventilation with an FiO2 of 40%. Patient remains on IV antibiotics Zosyn. Patient remains on IV heparin drip. WBC 8.7, hemoglobin 13.9 creatinine 0.61 bun 33 multiple consults following On 03/19/2024 patient remains in the intensive care unit. Sedation has been stopped per critical care will assess mentation. Current vital signs temp 98.2, heart rate 75, respiratory rate 20, blood pressure 117/66 with pulse ox of 96% on mechanical ventilation with an FiO2 of 35%. White blood cell 7.0 hemoglobin 11.0 creatinine 0.51 bun 27 potassium low at 3.1 this to be replaced per protocol. Multiple consults following On 03/20/2024 patient remains in the intensive care unit. On mechanical ventilation. Sedation remains off. Chest x-ray completed showing COPD with slight worsening in the diffuse interstitial and patchy opacitiesThat has been increasing over the past few days 4. History of coronary artery disease. Current vital signs temp 98.2, heart rate 80, respiratory rate 19, blood pressure 121/68 with a pulse ox of 95% on mechanical ventilation with an FiO2 of 35% On 03/21/2024 patient remains in the intensive care unit today patient is awake following commands on mechanical ventilation sedation remains off. Per critical care will attempt extubation today. Patient had follow-up CT yesterday per neurology services anticipate patient will need MRI once extubated and stable. Current vital signs temp 98.9, heart rate 77, respiratory rate 19, blood pressure 100/57 on mechanical ventilation at FiO2 of 35% On 03/22/2024 patient was seen and examined in the ICU, she is alert and oriented x 3 in no apparent distress, she is off the ventilator and is maintained on oxygen 4 L via nasal cannula, she is responsive and answering questions by yes or no, there is no fever or chills no headache or dizziness no chest pain no shortness of breath no cough no nausea or vomiting no abdominal pain no diarrhea and no urinary symptoms. Patient had a recent stroke, repeat swallow evaluation is scheduled for Sunday. On 03/23/2024 patient is alert and oriented x 3 patient has been extubated. Patient remains in the ICU. MRI has been ordered. Current vital signs temp 98.2, heart rate 68, respiratory rate 21, blood pressure 109/61 with a pulse ox of 121/43. Pulse ox 98% on 3 L. At this time patient denies chest pain or shortness of breath. Patient denies nausea vomiting or diarrhea. Patient denies any urinary burning or frequency. On 03/24/2024 patient was seen and examined on the telemetry floor she is alert and oriented in no apparent distress, she is answering few questions by yes or no, there is no fever or chills no headache or dizziness no chest pain no shortness of breath no cough no nausea or vomiting no abdominal pain no diarrhea and no urinary symptoms. Plan is to proceed with speech therapy consult for swallowing evaluation, also to proceed with MRI of the brain, physical therapy and Occupational Therapy are consulted. Will follow closely. On 03/25/2024 patient's alert remains confused. MRI of the brain has been ordered per neurology patient denies chest pain or shortness of breath. Patient denies nausea vomiting or diarrhea. Patient denies any urinary burning or frequency. On 03/26/2024 patient was seen and examined on the medical floor she is more alert and responsive in no apparent distress there is no fever or chills no headache or dizziness no chest pain no shortness of breath no cough no nausea or vomiting no abdominal pain no diarrhea and no urinary symptoms, patient is being evaluated for possible transfer to inpatient rehab. On 03/27/2024 patient was seen and examined on the telemetry floor she is alert and oriented in no apparent distress there is no fever or chills no headache or dizziness, no chest pain no shortness of breath no cough no nausea or vomiting no abdominal pain no diarrhea no urinary symptoms, input from neurology and inpatient rehab reviewed, will continue to follow closely. Objective - Vital Signs Vital signs: Vital Signs Temp 97.6 F 03/27/24 03:51 Pulse 70 03/27/24 12:00 Resp 16 03/27/24 12:00 BP 112/68 03/27/24 12:00 Pulse Ox 90 L 03/27/24 12:00 FiO2 40 03/22/24 08:00 Intake & Output 03/26/24 03/27/24 03/27/24 18:59 06:59 18:59 Intake Total 250 30 Output Total 156 058 0579 Balance -350 -595 -1000 Weight 70.5 kg Intake: IV 20 30 Invasive Line 6 20 30 Oral 230 Output: Urine 472 882 1432 Other: Voiding Method Indwelling Catheter Indwelling Catheter Indwelling Catheter ABP, PAP, CO, CI - Last Documented Arterial Blood Pressure 132/50 - Exam Head normocephalic Neck supple Lungs clear to auscultation bilaterally no wheezing or crackles Heart regular rate and rhythm S1-S2, no rub or gallop Abdomen is soft nontender nondistended positive bowel sounds no hepatosplenomegaly Extremities no edema Neuro patient is unresponsive - Labs CBC & Chem 7: 03/27/24 06:56 03/27/24 06:56 Labs: Abnormal Lab Results - Last 24 Hours (Table) 03/26/24 03/26/24 03/27/24 Range/Units 16:32 23:52 06:20 WBC (3.8-10.6) k/uL MCHC (31.0-37.0) g/dL RDW (11.5-15.5) % Neutrophils # (1.3-7.7) k/uL Lymphocytes # (1.0-4.8) k/uL Sodium (137-145) mmol/L Carbon Dioxide (22-30) mmol/L BUN (7-17) mg/dL Glucose (74-99) mg/dL POC Glucose (mg/dL) 193 H 180 H 194 H (70-110) mg/dL Calcium (8.4-10.2) mg/dL Alkaline Phosphatase (38-126) U/L Total Protein (6.3-8.2) g/dL Albumin (3.5-5.0) g/dL 03/27/24 03/27/24 03/27/24 Range/Units 06:56 06:56 11:38 WBC 14.9 H (3.8-10.6) k/uL MCHC 30.4 L (31.0-37.0) g/dL RDW 15.9 H (11.5-15.5) % Neutrophils # 13.9 H (1.3-7.7) k/uL Lymphocytes # 0.4 L (1.0-4.8) k/uL Sodium 136 L (137-145) mmol/L Carbon Dioxide 36 H (22-30) mmol/L BUN 20 H (7-17) mg/dL Glucose 165 H (74-99) mg/dL POC Glucose (mg/dL) 144 H (70-110) mg/dL Calcium 7.6 L (8.4-10.2) mg/dL Alkaline Phosphatase 35 L (38-126) U/L Total Protein 4.8 L (6.3-8.2) g/dL Albumin 2.5 L (3.5-5.0) g/dL 12/12/24 Range/Units 16:24 WBC (3.8-10.6) k/uL MCHC (31.0-37.0) g/dL RDW (11.5-15.5) % Neutrophils # (1.3-7.7) k/uL Lymphocytes # (1.0-4.8) k/uL Sodium (137-145) mmol/L Carbon Dioxide (22-30) mmol/L BUN (7-17) mg/dL Glucose (74-99) mg/dL POC Glucose (mg/dL) 197 H (70-110) mg/dL Calcium (8.4-10.2) mg/dL Alkaline Phosphatase (38-126) U/L Total Protein (6.3-8.2) g/dL Albumin (3.5-5.0) g/dL Assessment and Plan Assessment: 1. Slurred speech and altered mental status changes likely secondary from CVA 2. Acute CHF exacerbation 3. Elevated troponins 4. Ongoing nicotine dependence greater than 1 pack/day 5. History of COPD 6. History of essential hypertension 7. Concerns of aspiration pneumonia patient started on IV Zosyn infectious disease service is consulted 8. Acute on chronic hypoxic and hypercapnic respiratory failure requiring intubation and mechanical ventilation. Patient has been extubated 03/21/2024 Neurology, cardiology and pulmonary services consulted Patient remains on IV Zosyn Remains in the intensive care unit MRI of the brain Has been completed Patient has been transition to oral anticoagulation Repeat labs ordered PT and OT services consulted Will consult IPR services for possible discharge Per case management guardianship is in process
[2024-03-27 19:55] LABS: Glucose,Whole Blood 218 mg/dL (70-110)
[2024-03-28 06:07] LABS: Glucose,Whole Blood 180 mg/dL (70-110)
[2024-03-28 06:25] LABS: Basophils % (A) 0 %; Eosinophils % (A) 0 %; HCT 47.9 % (34.0-46.0); HGB 14.5 gm/dL (11.4-16.0); Hypochromasia Marked; Lymphocytes # (A) 0.5 k/uL (1.0-4.8); Lymphocytes % (A) 3 %; MCH 25.8 pg (25.0-35.0); MCHC 30.3 g/dL (31.0-37.0); MCV 85.2 fL (80.0-100.0); Mean Platelet Volume 7.4; Monocytes # (A) 0.5 k/uL (0-1.0); Monocytes % (A) 3 %; Neutrophils # (A) 16.3 k/uL (1.3-7.7); Neutrophils % (A) 93 %; Platelet Count 335 k/uL (150-450); RBC 5.62 m/uL (3.80-5.40); RDW 15.9 % (11.5-15.5); WBC 17.5 k/uL (3.8-10.6)
[2024-03-28 06:40] LABS: ALT 28 U/L (4-34); African American GFR (CKD) >90 (>60 ml/min/1.73 sqM); Anion Gap 0 mmol/L; Blood Urea Nitrogen 24 mg/dL (7-17); C Reactive Protein <0.5 mg/dL (<1.0); Calcium 8.1 mg/dL (8.4-10.2); Carbon Dioxide 28 mmol/L (22-30); Chloride 103 mmol/L (98-107); Non-African American GFR(CKD) >90 (>60 ml/min/1.73 sqM); Sodium 131 mmol/L (137-145); Total Protein 5.5 g/dL (6.3-8.2)
[2024-03-28 07:30] LABS: AST 24 U/L (14-36); Potassium 5.1 mmol/L (3.5-5.1)
[2024-03-28 07:31] LABS: Alkaline Phosphatase 38 U/L (38-126)
[2024-03-28 07:54] LABS: Glucose 184 mg/dL (74-99)
--- NOTE | 2024-03-28 09:18 | P.PN ---
Subjective Progress Note Date: 03/28/24 Mirtha Ponce is a 73-year-old female patient who initially presented to her PCP with complaints of slurring of speech patient was directed to come to ER for further evaluation. At this time patient is in bed sleeping not following commands or answering questions. Family at bedside history obtained through them and medical records. According to family patient was found to be having slurred speech patient did not want to come to ER at that time so was taken to PCP. Per family patient is a heavy smoker but denies any alcohol or drug use. Denies any recent illness. Additional medical history includes COPD, hypertension. Head CT completed showing right parietal lobe acute/subacute CVA. EKG completed showing sinus rhythm. Chest x-ray completed showing cardiomegaly with pulmonary vascular congestion correlate with serum BNP COPD changes. Lab work revealing troponin 0.379, 0.429 and 0.436, white blood cell 5.7, hemoglobin 15.4 creatinine 0.56 bun 14. At this time neurology services have been consulted MRI of the brain has been ordered CTA of the carotids ordered. Will order 2D echo and consult cardiology services. Due to patient's increasing altered mental status changes and concerns for respiratory status we will consult pulmonary services. Patient's BNP also elevated at 6490 will give 1 dose of IV Lasix. Current vital signs temp 97.9, heart rate 96, respiratory rate 18, blood pressure 100/59 with a pulse ox of 95% on nonrebreather. On 03/13/2024 patient was seen and examined on the medical floor she is alert and oriented x 3 in no apparent distress, she has a low-grade fever of 99.4 pulse 108 respiration 22 blood pressure 123/61 pulse ox 91% on 6 L nasal cannula, she has cough, with minimal sputum production she denies any chest pain or shortness of breath no nausea or vomiting no abdominal pain no diarrhea and no urinary symptoms. At this time will keep patient n.p.o. for possible aspiration, will start IV Zosyn and repeat chest x-ray, infectious disease con sultation was added, will continue with IV heparin due to elevated troponin levels, awaiting cardiology input. Neurology consult reviewed. On 03/14/2024 patient remains lethargic in the intensive care unit. Patient was placed on BiPAP. Patient also started on IV Zosyn for concerns of aspiration pneumonia patient not following commands at this time recommendations for possible Dobbhoff placement in order to administer oral medications. Neurology services are following MRI has been ordered but cannot be performed while patient is on BiPAP and heparin. Critical care services following infectious disease, cardiology and neurology services following. Current vital signs temp 98.1, heart rate 96, respiratory rate 27, blood pressure 119/69 with a pulse ox of 96% on BiPAP with an FiO2 of 45%. Family at bedside all questions answered On 03/15/2024 patient was seen and examined in the intensive care unit, she is not responsive at this time she is maintained on BiPAP, vital examination r eveals a temperature of 97.9 pulse 89 respiration 24 blood pressure 110/62 pulse ox 99% on FiO2 45% White blood count is 8.7 hemoglobin 13.8 platelet count 249 arterial blood gas revealed a pH of 7.24 pCO2 95% PaO2 96%, BUN 43 creatinine 0.69. Patient is followed by neurology, infectious disease, cardiology and pulmonary critical care, she remains on IV heparin. CT scan of the brain, was repeated yesterday and reveals multiple subacute infarcts no acute bleed or mass effect, chest x-r ay done this morning reveals diffuse interstitial infiltrates. Prognosis is guarded. On 03/16/2024 patient remains in the intensive care unit ABGs continued to decline despite BiPAP. Plans for intubation today per critical care.. Family at bedside. Plan discussed with family and nursing staff. Patient remains on IV Zosyn and IV Cardizem. Prognosis remains guarded. Neurology, infectious disease, cardiology and critical care services are all following. On 03/17/2024 patient was seen and examined in the intensive care unit, she is intubated sedated maintained on mechanical ventilation, assist control rate of 20 FiO2 40% with a PEEP of 5, she is maintained on IV antibiotic Zosyn and IV Solu-Medrol 60 mg every 6 hours. White blood count is 7.7 hemoglobin 13.5 platelet count 169 BUN 40 creatinine 0.83, patient is still maintained on IV heparin. Will continue to follow closely On 03/18/2024 patient remains in the intensive care unit intubated and sedated on mechanical ventilation with an FiO2 of 40%. Patient remains on IV antibiotics Zosyn. Patient remains on IV heparin drip. WBC 8.7, hemoglobin 13.9 creatinine 0.61 bun 33 multiple consults following On 03/19/2024 patient remains in the intensive care unit. Sedation has been stopped per critical care will assess mentation. Current vital signs temp 98.2, heart rate 75, respiratory rate 20, blood pressure 117/66 with pulse ox of 96% on mechanical ventilation with an FiO2 of 35%. White blood cell 7.0 hemoglobin 11.0 creatinine 0.51 bun 27 potassium low at 3.1 this to be replaced per protocol. Multiple consults following On 03/20/2024 patient remains in the intensive care unit. On mechanical ventilation. Sedation remains off. Chest x-ray completed showing COPD with slight worsening in the diffuse interstitial and patchy opacitiesThat has been increasing over the past few days 4. History of coronary artery disease. Current vital signs temp 98.2, heart rate 80, respiratory rate 19, blood pressure 121/68 with a pulse ox of 95% on mechanical ventilation with an FiO2 of 35% On 03/21/2024 patient remains in the intensive care unit today patient is awake following commands on mechanical ventilation sedation remains off. Per critical care will attempt extubation today. Patient had follow-up CT yesterday per neurology services anticipate patient will need MRI once extubated and stable. Current vital signs temp 98.9, heart rate 77, respiratory rate 19, blood pressure 100/57 on mechanical ventilation at FiO2 of 35% On 03/22/2024 patient was seen and examined in the ICU, she is alert and oriented x 3 in no apparent distress, she is off the ventilator and is maintained on oxygen 4 L via nasal cannula, she is responsive and answering questions by yes or no, there is no fever or chills no headache or dizziness no chest pain no shortness of breath no cough no nausea or vomiting no abdominal pain no diarrhea and no urinary symptoms. Patient had a recent stroke, repeat swallow evaluation is scheduled for Sunday. On 03/23/2024 patient is alert and oriented x 3 patient has been extubated. Patient remains in the ICU. MRI has been ordered. Current vital signs temp 98.2, heart rate 68, respiratory rate 21, blood pressure 109/61 with a pulse ox of 121/43. Pulse ox 98% on 3 L. At this time patient denies chest pain or shortness of breath. Patient denies nausea vomiting or diarrhea. Patient denies any urinary burning or frequency. On 03/24/2024 patient was seen and examined on the telemetry floor she is alert and oriented in no apparent distress, she is answering few questions by yes or no, there is no fever or chills no headache or dizziness no chest pain no shortness of breath no cough no nausea or vomiting no abdominal pain no diarrhea and no urinary symptoms. Plan is to proceed with speech therapy consult for swallowing evaluation, also to proceed with MRI of the brain, physical therapy and Occupational Therapy are consulted. Will follow closely. On 03/25/2024 patient's alert remains confused. MRI of the brain has been ordered per neurology patient denies chest pain or shortness of breath. Patient denies nausea vomiting or diarrhea. Patient denies any urinary burning or frequency. On 03/26/2024 patient was seen and examined on the medical floor she is more alert and responsive in no apparent distress there is no fever or chills no headache or dizziness no chest pain no shortness of breath no cough no nausea or vomiting no abdominal pain no diarrhea and no urinary symptoms, patient is being evaluated for possible transfer to inpatient rehab. On 03/27/2024 patient was seen and examined on the telemetry floor she is alert and oriented in no apparent distress there is no fever or chills no headache or dizziness, no chest pain no shortness of breath no cough no nausea or vomiting no abdominal pain no diarrhea no urinary symptoms, input from neurology and inpatient rehab reviewed, will continue to follow closely. On 03/28/2024 patient is alert and resting comfortably in bed. Awaiting insurance authorization for discharge to [facility]. Patient denies chest pain or shortness of breath. Patient denies nausea vomiting or diarrhea. Patient denies any urinary burning or frequency. Antibiotics have been DC'd we will continue to monitor off antibiotics patient is on IV steroids. Objective - Vital Signs Vital signs: Vital Signs Temp 97.7 F 03/27/24 20:00 Pulse 74 03/28/24 04:00 Resp 16 03/28/24 04:00 BP 99/63 03/28/24 04:00 Pulse Ox 99 03/28/24 04:00 FiO2 40 03/22/24 08:00 Intake & Output 03/27/24 03/28/24 03/28/24 18:59 06:59 18:59 Intake Total 118 Output Total 1000 1300 Balance -882 -1300 Weight 70.5 kg Intake: Oral 118 Output: Urine 1000 1300 Other: Voiding Method Indwelling Catheter Indwelling Catheter ABP, PAP, CO, CI - Last Documented Arterial Blood Pressure 132/50 - Exam Head normocephalic Neck supple Lungs clear to auscultation bilaterally no wheezing or crackles Heart regular rate and rhythm S1-S2, no rub or gallop Abdomen is soft nontender nondistended positive bowel sounds no hepatosplenomegaly Extremities no edema Neuro patient is unresponsive - Labs CBC & Chem 7: 03/28/24 05:47 03/28/24 05:47 Labs: Abnormal Lab Results - Last 24 Hours (Table) 03/27/24 03/27/24 03/27/24 Range/Units 11:38 16:24 19:53 WBC (3.8-10.6) k/uL RBC (3.80-5.40) m/uL Hct (34.0-46.0) % MCHC (31.0-37.0) g/dL RDW (11.5-15.5) % Neutrophils # (1.3-7.7) k/uL Lymphocytes # (1.0-4.8) k/uL Sodium (137-145) mmol/L BUN (7-17) mg/dL Creatinine (0.52-1.04) mg/dL Glucose (74-99) mg/dL POC Glucose (mg/dL) 144 H 197 H 218 H (70-110) mg/dL Calcium (8.4-10.2) mg/dL Total Protein (6.3-8.2) g/dL Albumin (3.5-5.0) g/dL 03/28/24 03/28/24 03/28/24 Range/Units 05:47 05:47 06:05 WBC 17.5 H (3.8-10.6) k/uL RBC 5.62 H (3.80-5.40) m/uL Hct 47.9 H (34.0-46.0) % MCHC 30.3 L (31.0-37.0) g/dL RDW 15.9 H (11.5-15.5) % Neutrophils # 16.3 H (1.3-7.7) k/uL Lymphocytes # 0.5 L (1.0-4.8) k/uL Sodium 131 L (137-145) mmol/L BUN 24 H (7-17) mg/dL Creatinine 0.47 L (0.52-1.04) mg/dL Glucose 184 H (74-99) mg/dL POC Glucose (mg/dL) 180 H (70-110) mg/dL Calcium 8.1 L (8.4-10.2) mg/dL Total Protein 5.5 L (6.3-8.2) g/dL Albumin 3.0 L (3.5-5.0) g/dL Assessment and Plan Assessment: 1. Slurred speech and altered mental status changes likely secondary from CVA 2. Acute CHF exacerbation 3. Elevated troponins 4. Ongoing nicotine dependence greater than 1 pack/day 5. History of COPD 6. History of essential hypertension 7. Concerns of aspiration pneumonia patient started on IV Zosyn infectious disease service is consulted 8. Acute on chronic hypoxic and hypercapnic respiratory failure requiring intubation and mechanical ventilation. Patient has been extubated 03/21/2024 Neurology, cardiology and pulmonary services consulted MRI of the brain Has been completed Patient has been transition to oral anticoagulation Repeat labs ordered PT and OT services consulted Discharge planning to [facility] Per case management guardianship is in process
[2024-03-28 11:30] LABS: Glucose,Whole Blood 171 mg/dL (70-110)
--- NOTE | 2024-03-28 13:49 | P.PN ---
Subjective Progress Note Date: 03/28/24 Principal diagnosis: CVA. Patient was seen today , patient was intubated yesterday, and she is now on mechanical ventilation. Patient developed worsening hypoxic and hyp ercapnic respiratory failure required intubation mechanical ventilation. Patient is now on assist-control rate of 20 tidal volume 400 FiO2 40% and PEEP of 5 ABG showed a pO2 of 93 pCO2 45 pH of 7.47 hence no changes were made in her present ventilator settings. Patient is on vital AF at 10 cc/h she is also on propofol at 50 mcg/kg/min, amiodarone 0.5 mg/min heparin drip IV fluid 0.9 normal saline at 75 cc/h Solu-Medrol 60 every 6 Zosyn empirically for possible aspiration. Patient had a presentation of 2 weeks history of headache and stuttering. She was found to have right parietal CVA. Patient was intubated on 03/16 remains intubated and sedated. Chest x-ray showed COPD with ongoing int erstitial opacities throughout both lungs. And opacity noted in the left retrocardiac area suspicious for pneumonia with some opacity in the right base that seems to be improving WBC count today is 7.7 hemoglobin 13.5 basic metabolic profile is normal, BUN is 40 creatinine 0.83 Patient was seen today on 03/18/2024, remains in ICU, intubated and mechanically ventilated, on assist-control rate of 20 tidal volume 400 FiO2 40% and PEEP of 5 ABG showed a pO2 of 134 pCO2 44 pH of 7.44. Based on ABG I recommended cutting down her FiO2 to 35% and decreased today down to 18. Patient is on vital HP at 10/35 she is also on propofol at 20 mcg/kg/min, heparin drip IV fluid 0.9 normal saline at 75 cc/h patient is receiving Zosyn empirically. She had fluid balance +1 L over the last 24 hours. WBC count is 8.7 hemoglobin 13.9 platelets are 144. Electrolytes are normal renal profile is normal with BUN of 33 creatinine 0.61 blood sugar is 204 chest x-ray is showing nonspecific interstitial infiltr ates and a patchy left retrocardiac opacity. Seen today on 03/19/2024, patient remains in the ICU, intubated and mechanically ventilated, on assist-control rate of 18 tidal volume 400 FiO2 35% and PEEP of 5 ABG showed a pO2 of 96 pCO2 46 pH of 7.43 patient was taken off propofol yesterday, remains on propofol, and does not seem to follow any instructions, she opens her eyes, withdraws to pain, moves her left upper extremity withdraws to pain mostly. Patient remains on heparin, IV fluid 0.9 at 75 cc/h vital HP at 35/35. Remains on Solu-Medrol and on Zosyn. Patient to remain off propofol today, and no plans to place her back on propofol for now. Would like to get further assessment of her mental status as she seems to be not responding purposefully to any stimuli except withdraws to pain. Patient opens her eyes but does not follow any instructions. WBC is 7.0 hemoglobin 11, basic metabolic profile noted, potassium is a bit low at 3.1 but renal profile is normal. Patient was evaluated today on 03/20/2024, remains in the ICU, intubated and mechanically ventilated. Patient has been off propofol now for 2 days, opening eyes, wiggling toes, squeezing hands, but still not fully awake. And it takes a lot of repetition of instructions to make the patient understand or comprehend what she is being told. Patient remains extremely slow, she is on assist- control rate of 18 tidal volume 400 FiO2 35% PEEP of 5 ABG showed a pO2 of 76 pCO2 45 pH of 7.44. Chest x-ray showed slight worsening of her interstitial opacities bilaterally. Patient is on Zosyn.WBC count is 6.7 hemoglobin 9.6. Basic metabolic profile is normal renal profile is normal. Sputum cultures are nondiagnostic showed mostly normal rubin Patient was evaluated today on 03/21/2024, patient remains in the ICU, intubated and mechanically ventilated, on assist-control rate of 18 tidal volume 400 FiO2 35% PEEP of 5 ABG showed a pO2 of 83 pCO2 45 pH of 7.44 patient remains off propofol, she is arousable she is awake, follows simple instructions cannot use her right upper extremity seems to be paralyzed. Related to her acute CVA involving the left parietal area. Patient remains on heparin, on IV fluid at 75 cc/h vital AF at 55/55, patient is also on Solu-Medrol and Zosyn. Family is noted at bedside, patient is the best I have seen her today as far as her mental status is concerned, she seems to be more awake, more appropriate, and feels to follow instructions quite well. Hence I recommended a trial of pressure support of 10 and CPAP, and if tolerated I plan to proceed with further weaning and possibly extubationChest x-ray showed COPD with similar diffuse bilateral interstitial patchy opacities patient is on antibiotics for presumptive aspiration pneumonia WBC count is 11.3 hemoglobin is 10, Basic metabolic profile is normal renal profile is normal Patient was seen today on 03/22/2024, patient remains in the ICU, she was extubated yesterday, extubated to BiPAP, today she was placed on 4 L nasal cannula, patient is doing better tolerating extubation so far quite well. She was on 03/21/40% on BiPAP now on 4 L nasal cannula she seems to be very appropriate, follows simple instructions. Chest x-ray continues to show nonspecific interstitial infiltrates/edema hence I gave her a dose of Lasix 20 mg IV push cut down her IV fluid to KVO, cut down her Solu-Medrol to 40 mg IV push every 12 hours. Her CODE STATUS has been changed to DNR. Patient remains on heparin but this will be transition to Eliquis today remains on Zosyn for presumptive aspiration. WBC count is 12.9 hemoglobin is 11.6 electrolytes are normal BUN is 32 creatinine 0.49. He was seen today on 03/23/2024, remains in the ICU, patient continues to tolerate extubation well over the last couple of days. She seems to be more and more awake, follows simple instructions, continues to have right upper extremity weakness/paralysis. Speech seems to be also affected/patient has garbled speech. Today the plan is to discontinue her lines, establish a peripheral line, continue antibiotics for now, and I plan to transfer the patient out of the ICU to a regular medical floor/monitored bed. Remains on Eliquis and she remains on Zosyn WBC count is 14.8 hemoglobin is 12.4 electrolytes are normal renal profile is normal no chest x-ray was done today, patient is maintaining excellent saturation on 4 L nasal cannula Progress note dated March 24, 2024. 73-year-old female who was admitted back on March 11, 2024. She has been here in the hospital for 13 days. She is getting saline at 100 cc an hour, and nasal O2 at 3 L by nasal cannula. The BiPAP device is in the room, but it is unclear to me whether or not the patient used it last night. Settings include 12/6, with 40%. The patient appears to be relatively comfortable, and in no acute distress. Current labs are good a white count 11, hemoglobin 13.3, h ematocrit 44.2, and a platelet count of 279,000. Sodium 134, potassium 4.7, chlorides 99, CO2 35, BUN 26, creatinine 0.59. Glucose is 158. Albumin is 2.5. Progress note dated March 25, 2024. 73-year-old female who was admitted back on March 11, 2024. The patient is seen today in room 360. She remains on oxygen at 2 L. The patient is getting saline at 10 cc an hour. The patient was in the intensive care unit, on a ventilator previously. She is a DO NOT RESUSCITATE patient. No new labs today other than a glucose of 155. Brain CT from yesterday shows no acute intracranial process. There is remote encephalomalacia involving the left cerebrum related to previous injury, and nonspecific white matter changes. Progress note dated March 26, 2024. 73-year-old female admitted back on March 11, 2024. The patient is seen today in room 360. She continues on O2 at 2 L. She is getting saline at 10 cc an hour. The patient is resting comfortably in bed. No acute distress. She is awake and alert. White count 13, hemoglobin 13, macro 42.2, platelet count 209,000. Sodium 133, potassium 4.4, chlorides 99, CO2 35, BUN 24, creatinine 0.57. Glucose is 177. Albumin is 2.6. Progress note dated March 27, 2024. 73-year-old female admitted on March 11. She was admitted with a diagnosis of CVA. Currently, she is seen in room 360. She is on saline at 10 cc an hour. She is getting oxygen by nasal cannula 2 L. When spoken to, she mumbles. Current labs include a white count 14.9, hemoglobin 13.1, macro 43.1, and a normal platelet count. Sodium 136, potassium 4.4, chlorides 101, CO2 36, BUN 20, creatinine 0.58. Glucose 144. Albumin 2.5. Progress note dated March 28, 2024. 73-year-old female seen today in room 360. The patient is currently on 2 L of oxygen. She is getting saline at 10 cc an hour. White count of 17.5, hemoglobin is 14.5, hematocrit is 47.9, and platelet count is 335,000. Sodium 131, potassium 5.1, chlorides 103, CO2 28, BUN 24, creatinine 0.47. Glucose is 171. Albumin is 3. Objective - Vital Signs Vital signs: Vital Signs Temp 97.5 F L 03/28/24 11:45 Pulse 91 03/28/24 11:45 Resp 16 03/28/24 11:45 BP 99/61 03/28/24 11:45 Pulse Ox 92 L 03/28/24 11:45 FiO2 40 03/22/24 08:00 Intake & Output 03/27/24 03/28/24 03/28/24 18:59 06:59 18:59 Intake Total 118 Output Total 1000 1300 Balance -882 -1300 Weight 70.5 kg Intake: Oral 118 Output: Urine 1000 1300 Other: Voiding Method Indwelling Catheter Indwelling Catheter Indwelling Catheter ABP, PAP, CO, CI - Last Documented Arterial Blood Pressure 132/50 - Exam No acute distress, oriented 3. No respiratory distress. The patient continues on 2 L. HEENT examination is grossly unremarkable. Mucous membranes are moist. No oral lesions. Neck supple. Full range of motion. No adenopathy thyromegaly or neck vein distention. Cardiovascular examination reveals regular rhythm rate. S1-S2 normal. No S3 or S4. No discernible murmur noted. Lungs reveal clear breath sounds. Breath sounds are equal bilaterally. No adventitious lung sounds including wheezes rhonchi or crackles. Abdomen soft bowel sounds are heard. No masses or tenderness. Extremities are intact. No cyanosis clubbing or edema. No movement right upper extremity. Skin is without rash or lesion. Neurologic examination feels decreased movement right upper extremity. Speech is garbled. - Labs CBC & Chem 7: 03/28/24 05:47 03/28/24 05:47 Labs: Abnormal Lab Results - Last 24 Hours (Table) 03/27/24 03/27/24 03/28/24 Range/Units 16:24 19:53 05:47 WBC 17.5 H (3.8-10.6) k/uL RBC 5.62 H (3.80-5.40) m/uL Hct 47.9 H (34.0-46.0) % MCHC 30.3 L (31.0-37.0) g/dL RDW 15.9 H (11.5-15.5) % Neutrophils # 16.3 H (1.3-7.7) k/uL Lymphocytes # 0.5 L (1.0-4.8) k/uL Sodium (137-145) mmol/L BUN (7-17) mg/dL Creatinine (0.52-1.04) mg/dL Glucose (74-99) mg/dL POC Glucose (mg/dL) 197 H 218 H (70-110) mg/dL Calcium (8.4-10.2) mg/dL Total Protein (6.3-8.2) g/dL Albumin (3.5-5.0) g/dL 03/28/24 03/28/24 03/28/24 Range/Units 05:47 06:05 11:28 WBC (3.8-10.6) k/uL RBC (3.80-5.40) m/uL Hct (34.0-46.0) % MCHC (31.0-37.0) g/dL RDW (11.5-15.5) % Neutrophils # (1.3-7.7) k/uL Lymphocytes # (1.0-4.8) k/uL Sodium 131 L (137-145) mmol/L BUN 24 H (7-17) mg/dL Creatinine 0.47 L (0.52-1.04) mg/dL Glucose 184 H (74-99) mg/dL POC Glucose (mg/dL) 180 H 171 H (70-110) mg/dL Calcium 8.1 L (8.4-10.2) mg/dL Total Protein 5.5 L (6.3-8.2) g/dL Albumin 3.0 L (3.5-5.0) g/dL Assessment and Plan Assessment: 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 Acute on chronic hypoxemic and hypercapnic respiratory failure, S/P intubation and mechanical ventilation with successful extubation on March 21, 2024. History of COPD. Paroxysmal atrial fibrillation. Chronic hypoxemic and hypercapnic respiratory failure. Tobacco dependence syndrome. Severe pulmonary hypertension. History of hypertension. History of hyperlipidemia. Plan: Plan dated March 24, 2024. The patient appears to be relatively stable. The patient does have a small abrasion on the bridge of her nose, suggesting that she did wear the BiPAP last night. On examination, her lung mcgill are clear, and she is in normal sinus rhythm. She continues on saline at 100 cc an hour, nasal cannula 3 L. Labs, x- rays, medications are reviewed. We will continue to follow the patient, and make recommendations along the way. Plan dated March 25, 2024. The patient appears to be doing reasonably well. Labs, x-rays, medications are reviewed. The patient currently is on 2 L. She is getting saline at 10 cc an hour. She is a DO NOT RESUSCITATE patient. We will continue to follow make recommendations along the way. Prognosis is guarded. Pulmonary status is stable. Plan dated March 26, 2024. The patient is seen today in room 360. She continues on O2 2 L. A family member is at the bedside. She is receiving salin e at 10 cc an hour. Her speech is soft, she does appropriately respond. I asked her how she is feeling she says okay. Her swallow evaluation, revealed deep penetration without aspiration with thin liquids. We will continue to follow, make recommendations along the way. Prognosis is guarded. She is a DO NOT RESUSCITATE patient. Plan dated March 27, 2024. The patient is seen today in room 360. She continues on oxygen at 2 L. She is not receiving any IV fluids other than saline at 10 cc an hour. Her examination is unremarkable. She is she is in normal sinus rhythm. Her lungs are clear to auscultation. Labs, x-rays, and all medications are reviewed. The patient's overall prognosis remains guarded. The patient will likely need rehabilitation postdischarge. Plan dated March 28, 2024. The patient is seen today in room 360. The patient is stable from the pulmonary standpoint. She is on 2 L of oxygen by nasal cannula. There is no respiratory distress or difficulty. The patient is getting saline at 10 cc an hour. Labs, x-rays, and medications are reviewed. Moving forward, we will see the patient only as needed. The patient's overall respiratory status/pulmonary status, is stable. Time with Patient: Less than 30
--- NOTE | 2024-03-28 14:58 | P.PN ---
Subjective Progress Note Date: 03/28/24 Principal diagnosis: Reason for follow-up is pneumonia Patient is a 73-year-old female with a past medical history significant for COPD hypertension hyperlipidemia patient was brought into the hospital for evaluation of mental status changes and was being worked up for stroke did have worsening of respiratory status concerning for aspiration prompted this consultation. Patient did have worsening of her respiratory status got intubated on 03/16/2024 On today's evaluation that is 03/28/2024, the patient continues to be afebrile, the patient is on 2 L nasal oxygen and breathing comfortably, the Pt denies having any chest pain or cough, the patient not a very good historian no vomiting or diarrhea has been reported. Patient white count is up to 17.5 creatinine 0.47 Objective - Vital Signs Vital signs: Vital Signs Temp 97.5 F L 03/28/24 11:45 Pulse 91 03/28/24 11:45 Resp 16 03/28/24 11:45 BP 99/61 03/28/24 11:45 Pulse Ox 92 L 03/28/24 11:45 FiO2 40 03/22/24 08:00 Intake & Output 03/27/24 03/28/24 03/28/24 18:59 06:59 18:59 Intake Total 118 Output Total 1000 1300 Balance -882 -1300 Weight 70.5 kg Intake: Oral 118 Output: Urine 1000 1300 Other: Voiding Method Indwelling Catheter Indwelling Catheter Indwelling Catheter ABP, PAP, CO, CI - Last Documented Arterial Blood Pressure 132/50 - Exam GENERAL DESCRIPTION: An elderly female lying in bed in no distress RESPIRATORY SYSTEM: Unlabored breathing , decreased breath sounds at bases HEART: S1 S2 regular rate and rhythm , ABDOMEN: Soft , no tenderness EXTREMITIES: No edema feet - Labs CBC & Chem 7: 03/28/24 05:47 03/28/24 05:47 Labs: Abnormal Lab Results - Last 24 Hours (Table) 03/27/24 03/27/24 03/28/24 Range/Units 16:24 19:53 05:47 WBC 17.5 H (3.8-10.6) k/uL RBC 5.62 H (3.80-5.40) m/uL Hct 47.9 H (34.0-46.0) % MCHC 30.3 L (31.0-37.0) g/dL RDW 15.9 H (11.5-15.5) % Neutrophils # 16.3 H (1.3-7.7) k/uL Lymphocytes # 0.5 L (1.0-4.8) k/uL Sodium (137-145) mmol/L BUN (7-17) mg/dL Creatinine (0.52-1.04) mg/dL Glucose (74-99) mg/dL POC Glucose (mg/dL) 197 H 218 H (70-110) mg/dL Calcium (8.4-10.2) mg/dL Total Protein (6.3-8.2) g/dL Albumin (3.5-5.0) g/dL 03/28/24 03/28/24 03/28/24 Range/Units 05:47 06:05 11:28 WBC (3.8-10.6) k/uL RBC (3.80-5.40) m/uL Hct (34.0-46.0) % MCHC (31.0-37.0) g/dL RDW (11.5-15.5) % Neutrophils # (1.3-7.7) k/uL Lymphocytes # (1.0-4.8) k/uL Sodium 131 L (137-145) mmol/L BUN 24 H (7-17) mg/dL Creatinine 0.47 L (0.52-1.04) mg/dL Glucose 184 H (74-99) mg/dL POC Glucose (mg/dL) 180 H 171 H (70-110) mg/dL Calcium 8.1 L (8.4-10.2) mg/dL Total Protein 5.5 L (6.3-8.2) g/dL Albumin 3.0 L (3.5-5.0) g/dL Assessment and Plan (1) Aspiration pneumonia Current Visit: Yes Status: Acute Code(s): J69.0 - PNEUMONITIS DUE TO INHALATION OF FOOD AND VOMIT SNOMED Code(s): 116977732 (2) Leukocytosis Current Visit: Yes Status: Acute Code(s): D72.829 - ELEVATED WHITE BLOOD CELL COUNT, UNSPECIFIED SNOMED Code(s): 425692122 Plan: 1patient with worsening respiratory status and this patient initially brought into the hospital with slurred speech and being worked up for a CVA with worsening of respiratory status requiring BiPAP and a question of possible aspiration. 2patient did have CT angiogram of the chest shows consolidation concerning for pneumonia possible aspiration repeat CT of the brain concerning for subacute infarct with some progression neurology is following the patient 3patient did have worsening of respiratory status requiring intubation sputum culture has been obtained which are so far negative patient subsequently has been successfully extubated 4-patient is afebrile with a worsening of the white count possibly steroids versus oropharyngeal candidiasis, currently waiting for procalcitonin we will tyler Zhao empirically repeat his CBC with a.m. lab and a chest x-ray Dictation was produced using [employer] dictation software. please excuse any grammatical, word or spelling errors. Time with Patient: Less than 30
[2024-03-28] MEDS: FLUCONAZOLE 100 MG TAB PO SCH (16:24)
[2024-03-28 16:33] LABS: Glucose,Whole Blood 277 mg/dL (70-110)
[2024-03-28 19:59] LABS: Glucose,Whole Blood 226 mg/dL (70-110)
[2024-03-29 06:14] LABS: Glucose,Whole Blood 185 mg/dL (70-110)
[2024-03-29 08:10] LABS: Anisocytosis Slight; Basophils # (A) 0.1 k/uL (0-0.2); Basophils % (A) 0 %; Eosinophils % (A) 0 %; HCT 47.7 % (34.0-46.0); HGB 14.4 gm/dL (11.4-16.0); Hypochromasia Marked; Lymphocytes # (A) 0.3 k/uL (1.0-4.8); Lymphocytes % (A) 2 %; MCH 25.8 pg (25.0-35.0); MCHC 30.1 g/dL (31.0-37.0); MCV 85.8 fL (80.0-100.0); Mean Platelet Volume 7.8; Monocytes # (A) 0.5 k/uL (0-1.0); Monocytes % (A) 3 %; Neutrophils # (A) 17.1 k/uL (1.3-7.7); Neutrophils % (A) 95 %; Platelet Count 339 k/uL (150-450); RBC 5.56 m/uL (3.80-5.40); RDW 16.1 % (11.5-15.5)
--- NOTE | 2024-03-29 08:44 | XR ---
EXAMINATION TYPE: XR chest 2V DATE OF EXAM: 03/29/2024 8:27 AM COMPARISON: Chest radiographs from 03/22/2024 CLINICAL INDICATION: Female, 73 years old with history of PNEUMOIA; [facility] TECHNIQUE: XR chest 2V Frontal and lateral views of the chest. FINDINGS: Lungs/Pleura: Interstitial opacities similar prior. Enlarging right pleural effusion. No left pleural effusion family visualized Pulmonary vascularity: Unremarkable. Heart/mediastinum: Cardiomediastinal silhouette is unremarkable. Musculoskeletal: No acute osseous pathology. IMPRESSION: small right pleural effusion. Scattered interstitial opacities similar prior. [facility], , 03/29/2024 8:42 AM
[2024-03-29 11:19] LABS: Glucose,Whole Blood 152 mg/dL (70-110)
--- NOTE | 2024-03-29 12:56 | P.PN ---
Subjective Progress Note Date: 03/29/24 Mirtha Ponce is a 73-year-old female patient who initially presented to her PCP with complaints of slurring of speech patient was directed to come to ER for further evaluation. At this time patient is in bed sleeping not following commands or answering questions. Family at bedside history obtained through them and medical records. According to family patient was found to be having slurred speech patient did not want to come to ER at that time so was taken to PCP. Per family patient is a heavy smoker but denies any alcohol or drug use. Denies any recent illness. Additional medical history includes COPD, hypertension. Head CT completed showing right parietal lobe acute/subacute CVA. EKG completed showing sinus rhythm. Chest x-ray completed showing cardiomegaly with pulmonary vascular congestion correlate with serum BNP COPD changes. Lab work revealing troponin 0.379, 0.429 and 0.436, white blood cell 5.7, hemoglobin 15.4 creatinine 0.56 bun 14. At this time neurology services have been consulted MRI of the brain has been ordered CTA of the carotids ordered. Will order 2D echo and consult cardiology services. Due to patient's increasing altered mental status changes and concerns for respiratory status we will consult pulmonary services. Patient's BNP also elevated at 6490 will give 1 dose of IV Lasix. Current vital signs temp 97.9, heart rate 96, respiratory rate 18, blood pressure 100/59 with a pulse ox of 95% on nonrebreather. On 03/13/2024 patient was seen and examined on the medical floor she is alert and oriented x 3 in no apparent distress, she has a low-grade fever of 99.4 pulse 108 respiration 22 blood pressure 123/61 pulse ox 91% on 6 L nasal cannula, she has cough, with minimal sputum production she denies any chest pain or shortness of breath no nausea or vomiting no abdominal pain no diarrhea and no urinary symptoms. At this time will keep patient n.p.o. for possible aspiration, will start IV Zosyn and repeat chest x-ray, infectious disease con sultation was added, will continue with IV heparin due to elevated troponin levels, awaiting cardiology input. Neurology consult reviewed. On 03/14/2024 patient remains lethargic in the intensive care unit. Patient was placed on BiPAP. Patient also started on IV Zosyn for concerns of aspiration pneumonia patient not following commands at this time recommendations for possible Dobbhoff placement in order to administer oral medications. Neurology services are following MRI has been ordered but cannot be performed while patient is on BiPAP and heparin. Critical care services following infectious disease, cardiology and neurology services following. Current vital signs temp 98.1, heart rate 96, respiratory rate 27, blood pressure 119/69 with a pulse ox of 96% on BiPAP with an FiO2 of 45%. Family at bedside all questions answered On 03/15/2024 patient was seen and examined in the intensive care unit, she is not responsive at this time she is maintained on BiPAP, vital examination r eveals a temperature of 97.9 pulse 89 respiration 24 blood pressure 110/62 pulse ox 99% on FiO2 45% White blood count is 8.7 hemoglobin 13.8 platelet count 249 arterial blood gas revealed a pH of 7.24 pCO2 95% PaO2 96%, BUN 43 creatinine 0.69. Patient is followed by neurology, infectious disease, cardiology and pulmonary critical care, she remains on IV heparin. CT scan of the brain, was repeated yesterday and reveals multiple subacute infarcts no acute bleed or mass effect, chest x-r ay done this morning reveals diffuse interstitial infiltrates. Prognosis is guarded. On 03/16/2024 patient remains in the intensive care unit ABGs continued to decline despite BiPAP. Plans for intubation today per critical care.. Family at bedside. Plan discussed with family and nursing staff. Patient remains on IV Zosyn and IV Cardizem. Prognosis remains guarded. Neurology, infectious disease, cardiology and critical care services are all following. On 03/17/2024 patient was seen and examined in the intensive care unit, she is intubated sedated maintained on mechanical ventilation, assist control rate of 20 FiO2 40% with a PEEP of 5, she is maintained on IV antibiotic Zosyn and IV Solu-Medrol 60 mg every 6 hours. White blood count is 7.7 hemoglobin 13.5 platelet count 169 BUN 40 creatinine 0.83, patient is still maintained on IV heparin. Will continue to follow closely On 03/18/2024 patient remains in the intensive care unit intubated and sedated on mechanical ventilation with an FiO2 of 40%. Patient remains on IV antibiotics Zosyn. Patient remains on IV heparin drip. WBC 8.7, hemoglobin 13.9 creatinine 0.61 bun 33 multiple consults following On 03/19/2024 patient remains in the intensive care unit. Sedation has been stopped per critical care will assess mentation. Current vital signs temp 98.2, heart rate 75, respiratory rate 20, blood pressure 117/66 with pulse ox of 96% on mechanical ventilation with an FiO2 of 35%. White blood cell 7.0 hemoglobin 11.0 creatinine 0.51 bun 27 potassium low at 3.1 this to be replaced per protocol. Multiple consults following On 03/20/2024 patient remains in the intensive care unit. On mechanical ventilation. Sedation remains off. Chest x-ray completed showing COPD with slight worsening in the diffuse interstitial and patchy opacitiesThat has been increasing over the past few days 4. History of coronary artery disease. Current vital signs temp 98.2, heart rate 80, respiratory rate 19, blood pressure 121/68 with a pulse ox of 95% on mechanical ventilation with an FiO2 of 35% On 03/21/2024 patient remains in the intensive care unit today patient is awake following commands on mechanical ventilation sedation remains off. Per critical care will attempt extubation today. Patient had follow-up CT yesterday per neurology services anticipate patient will need MRI once extubated and stable. Current vital signs temp 98.9, heart rate 77, respiratory rate 19, blood pressure 100/57 on mechanical ventilation at FiO2 of 35% On 03/22/2024 patient was seen and examined in the ICU, she is alert and oriented x 3 in no apparent distress, she is off the ventilator and is maintained on oxygen 4 L via nasal cannula, she is responsive and answering questions by yes or no, there is no fever or chills no headache or dizziness no chest pain no shortness of breath no cough no nausea or vomiting no abdominal pain no diarrhea and no urinary symptoms. Patient had a recent stroke, repeat swallow evaluation is scheduled for Sunday. On 03/23/2024 patient is alert and oriented x 3 patient has been extubated. Patient remains in the ICU. MRI has been ordered. Current vital signs temp 98.2, heart rate 68, respiratory rate 21, blood pressure 109/61 with a pulse ox of 121/43. Pulse ox 98% on 3 L. At this time patient denies chest pain or shortness of breath. Patient denies nausea vomiting or diarrhea. Patient denies any urinary burning or frequency. On 03/24/2024 patient was seen and examined on the telemetry floor she is alert and oriented in no apparent distress, she is answering few questions by yes or no, there is no fever or chills no headache or dizziness no chest pain no shortness of breath no cough no nausea or vomiting no abdominal pain no diarrhea and no urinary symptoms. Plan is to proceed with speech therapy consult for swallowing evaluation, also to proceed with MRI of the brain, physical therapy and Occupational Therapy are consulted. Will follow closely. On 03/25/2024 patient's alert remains confused. MRI of the brain has been ordered per neurology patient denies chest pain or shortness of breath. Patient denies nausea vomiting or diarrhea. Patient denies any urinary burning or frequency. On 03/26/2024 patient was seen and examined on the medical floor she is more alert and responsive in no apparent distress there is no fever or chills no headache or dizziness no chest pain no shortness of breath no cough no nausea or vomiting no abdominal pain no diarrhea and no urinary symptoms, patient is being evaluated for possible transfer to inpatient rehab. On 03/27/2024 patient was seen and examined on the telemetry floor she is alert and oriented in no apparent distress there is no fever or chills no headache or dizziness, no chest pain no shortness of breath no cough no nausea or vomiting no abdominal pain no diarrhea no urinary symptoms, input from neurology and inpatient rehab reviewed, will continue to follow closely. On 03/28/2024 patient is alert and resting comfortably in bed. Awaiting insurance authorization for discharge to [facility]. Patient denies chest pain or shortness of breath. Patient denies nausea vomiting or diarrhea. Patient denies any urinary burning or frequency. Antibiotics have been DC'd we will continue to monitor off antibiotics patient is on IV steroids. On 03/29/2024 patient was seen and examined on the medical floor she is alert responsive in no apparent distress there is no fever or chills no headache or dizziness no chest pain no shortness of breath no cough no nausea or vomiting no abdominal pain no diarrhea and no urinary symptoms. Patient is improving gradually possible transfer to shelter for rehab on Sunday. Objective - Vital Signs Vital signs: Vital Signs Temp 97.5 F L 03/29/24 11:45 Pulse 69 03/29/24 11:45 Resp 20 03/29/24 11:45 BP 129/74 03/29/24 11:45 Pulse Ox 95 03/29/24 11:45 FiO2 40 03/22/24 08:00 Intake & Output 03/28/24 03/29/24 03/29/24 18:59 06:59 18:59 Output Total 1400 Balance -1400 Output: Urine 1400 Other: Voiding Method Indwelling Catheter Indwelling Catheter Indwelling Catheter # Bowel Movements 1 1 ABP, PAP, CO, CI - Last Documented Arterial Blood Pressure 132/50 - Exam Head normocephalic Neck supple Lungs clear to auscultation bilaterally no wheezing or crackles Heart regular rate and rhythm S1-S2, no rub or gallop Abdomen is soft nontender nondistended positive bowel sounds no hepatosplenomegaly Extremities no edema Neuro patient is unresponsive - Labs CBC & Chem 7: 03/29/24 07:01 03/28/24 05:47 Labs: Abnormal Lab Results - Last 24 Hours (Table) 03/28/24 03/28/24 03/29/24 Range/Units 16:32 19:58 06:12 WBC (3.8-10.6) k/uL RBC (3.80-5.40) m/uL Hct (34.0-46.0) % MCHC (31.0-37.0) g/dL RDW (11.5-15.5) % Neutrophils # (1.3-7.7) k/uL Lymphocytes # (1.0-4.8) k/uL POC Glucose (mg/dL) 277 H 226 H 185 H (70-110) mg/dL 03/29/24 03/29/24 Range/Units 07:01 11:18 WBC 18.0 H (3.8-10.6) k/uL RBC 5.56 H (3.80-5.40) m/uL Hct 47.7 H (34.0-46.0) % MCHC 30.1 L (31.0-37.0) g/dL RDW 16.1 H (11.5-15.5) % Neutrophils # 17.1 H (1.3-7.7) k/uL Lymphocytes # 0.3 L (1.0-4.8) k/uL POC Glucose (mg/dL) 152 H (70-110) mg/dL Assessment and Plan Assessment: 1. Slurred speech and altered mental status changes, with evidence of acute ischemic stroke. 2. Acute CHF exacerbation 3. Elevated troponins 4. Ongoing nicotine dependence greater than 1 pack/day 5. History of COPD 6. History of essential hypertension 7. Concerns of aspiration pneumonia patient started on IV Zosyn infectious disease service is consulted 8. Acute on chronic hypoxic and hypercapnic respiratory failure requiring intubation and mechanical ventilation. Patient has been extubated 03/21/2024 Neurology, cardiology and pulmonary services consulted MRI of the brain Has been completed Patient has been transition to oral anticoagulation Repeat labs ordered PT and OT services consulted Discharge planning to [facility] Per case management guardianship is in process
--- NOTE | 2024-03-29 15:01 | P.PN ---
Subjective Progress Note Date: 03/29/24 Principal diagnosis: Reason for follow-up is pneumonia Patient is a 73-year-old female with a past medical history significant for COPD hypertension hyperlipidemia patient was brought into the hospital for evaluation of mental status changes and was being worked up for stroke did have worsening of respiratory status concerning for aspiration prompted this consultation. Patient did have worsening of her respiratory status got intubated on 03/16/2024 On today's evaluation that is 03/29/2024, patient did not have any fever and denies any chills, patient is breathing comfortably on 2 L nasal cannula oxygen denies any chest pain occasional cough no vomiting or diarrhea has been reported. Patient white count is up to 18,000 CRP less than 0.5 procalcitonin pending Objective - Vital Signs Vital signs: Vital Signs Temp 97.5 F L 03/29/24 11:45 Pulse 69 03/29/24 11:45 Resp 20 03/29/24 11:45 BP 129/74 03/29/24 11:45 Pulse Ox 95 03/29/24 11:45 FiO2 40 03/22/24 08:00 Intake & Output 03/28/24 03/29/24 03/29/24 18:59 06:59 18:59 Output Total 1400 Balance -1400 Output: Urine 1400 Other: Voiding Method Indwelling Catheter Indwelling Catheter Indwelling Catheter # Bowel Movements 1 1 ABP, PAP, CO, CI - Last Documented Arterial Blood Pressure 132/50 - Exam GENERAL DESCRIPTION: An elderly female lying in bed in no distress RESPIRATORY SYSTEM: Unlabored breathing , decreased breath sounds at bases HEART: S1 S2 regular rate and rhythm , ABDOMEN: Soft , no tenderness EXTREMITIES: No edema feet - Labs CBC & Chem 7: 03/29/24 07:01 03/28/24 05:47 Labs: Abnormal Lab Results - Last 24 Hours (Table) 03/28/24 03/28/24 03/29/24 Range/Units 16:32 19:58 06:12 WBC (3.8-10.6) k/uL RBC (3.80-5.40) m/uL Hct (34.0-46.0) % MCHC (31.0-37.0) g/dL RDW (11.5-15.5) % Neutrophils # (1.3-7.7) k/uL Lymphocytes # (1.0-4.8) k/uL POC Glucose (mg/dL) 277 H 226 H 185 H (70-110) mg/dL 03/29/24 03/29/24 Range/Units 07:01 11:18 WBC 18.0 H (3.8-10.6) k/uL RBC 5.56 H (3.80-5.40) m/uL Hct 47.7 H (34.0-46.0) % MCHC 30.1 L (31.0-37.0) g/dL RDW 16.1 H (11.5-15.5) % Neutrophils # 17.1 H (1.3-7.7) k/uL Lymphocytes # 0.3 L (1.0-4.8) k/uL POC Glucose (mg/dL) 152 H (70-110) mg/dL Assessment and Plan (1) Aspiration pneumonia Current Visit: Yes Status: Acute Code(s): J69.0 - PNEUMONITIS DUE TO INHALATION OF FOOD AND VOMIT SNOMED Code(s): 013075887 (2) Leukocytosis Current Visit: Yes Status: Acute Code(s): D72.829 - ELEVATED WHITE BLOOD CELL COUNT, UNSPECIFIED SNOMED Code(s): 022181720 Plan: 1patient with worsening respiratory status and this patient initially brought into the hospital with slurred speech and being worked up for a CVA with worsening of respiratory status requiring BiPAP and a question of possible aspiration. 2patient did have CT angiogram of the chest shows consolidation concerning for pneumonia possible aspiration repeat CT of the brain concerning for subacute infarct with some progression neurology is following the patient 3patient did have worsening of respiratory status requiring intubation sputum culture has been obtained which are so far negative patient subsequently has been successfully extubated 4-patient is afebrile with a worsening of the white count possibly steroids versus oropharyngeal candidiasis, currently waiting for procalcitonin CRP is normal chest x-ray with scattered opacities, patient to continue with the Diflucan empirically Dictation was produced using [employer] dictation software. please excuse any grammatical, word or spelling errors. Time with Patient: Less than 30
[2024-03-29 16:26] LABS: Glucose,Whole Blood 224 mg/dL (70-110)
[2024-03-29 20:01] LABS: Glucose,Whole Blood 230 mg/dL (70-110)
[2024-03-30 06:40] LABS: Glucose,Whole Blood 187 mg/dL (70-110)
[2024-03-30 07:16] LABS: Anisocytosis Slight; Basophils % (A) 0 %; Eosinophils % (A) 0 %; HCT 46.8 % (34.0-46.0); HGB 14.3 gm/dL (11.4-16.0); Hypochromasia Moderate; Lymphocytes # (A) 0.4 k/uL (1.0-4.8); Lymphocytes % (A) 2 %; MCH 25.8 pg (25.0-35.0); MCHC 30.6 g/dL (31.0-37.0); MCV 84.1 fL (80.0-100.0); Mean Platelet Volume 7.9; Monocytes # (A) 0.5 k/uL (0-1.0); Monocytes % (A) 3 %; Neutrophils # (A) 16.7 k/uL (1.3-7.7); Neutrophils % (A) 94 %; Platelet Count 395 k/uL (150-450); RBC 5.57 m/uL (3.80-5.40); RDW 16.4 % (11.5-15.5); WBC 17.8 k/uL (3.8-10.6)
[2024-03-30 07:28] LABS: ALT 27 U/L (4-34); AST 19 U/L (14-36); African American GFR (CKD) >90 (>60 ml/min/1.73 sqM); Albumin 3.1 g/dL (3.5-5.0); Alkaline Phosphatase 51 U/L (38-126); Anion Gap 3 mmol/L; Blood Urea Nitrogen 26 mg/dL (7-17); Calcium 8.5 mg/dL (8.4-10.2); Carbon Dioxide 32 mmol/L (22-30); Chloride 99 mmol/L (98-107); Glucose 189 mg/dL (74-99); Non-African American GFR(CKD) >90 (>60 ml/min/1.73 sqM); Potassium 4.9 mmol/L (3.5-5.1); Sodium 134 mmol/L (137-145); Total Protein 5.5 g/dL (6.3-8.2)
--- NOTE | 2024-03-30 10:22 | P.PN ---
Subjective Progress Note Date: 03/30/24 Mirtha Ponce is a 73-year-old female patient who initially presented to her PCP with complaints of slurring of speech patient was directed to come to ER for further evaluation. At this time patient is in bed sleeping not following commands or answering questions. Family at bedside history obtained through them and medical records. According to family patient was found to be having slurred speech patient did not want to come to ER at that time so was taken to PCP. Per family patient is a heavy smoker but denies any alcohol or drug use. Denies any recent illness. Additional medical history includes COPD, hypertension. Head CT completed showing right parietal lobe acute/subacute CVA. EKG completed showing sinus rhythm. Chest x-ray completed showing cardiomegaly with pulmonary vascular congestion correlate with serum BNP COPD changes. Lab work revealing troponin 0.379, 0.429 and 0.436, white blood cell 5.7, hemoglobin 15.4 creatinine 0.56 bun 14. At this time neurology services have been consulted MRI of the brain has been ordered CTA of the carotids ordered. Will order 2D echo and consult cardiology services. Due to patient's increasing altered mental status changes and concerns for respiratory status we will consult pulmonary services. Patient's BNP also elevated at 6490 will give 1 dose of IV Lasix. Current vital signs temp 97.9, heart rate 96, respiratory rate 18, blood pressure 100/59 with a pulse ox of 95% on nonrebreather. On 03/13/2024 patient was seen and examined on the medical floor she is alert and oriented x 3 in no apparent distress, she has a low-grade fever of 99.4 pulse 108 respiration 22 blood pressure 123/61 pulse ox 91% on 6 L nasal cannula, she has cough, with minimal sputum production she denies any chest pain or shortness of breath no nausea or vomiting no abdominal pain no diarrhea and no urinary symptoms. At this time will keep patient n.p.o. for possible aspiration, will start IV Zosyn and repeat chest x-ray, infectious disease consu ltation was added, will continue with IV heparin due to elevated troponin levels, awaiting cardiology input. Neurology consult reviewed. On 03/14/2024 patient remains lethargic in the intensive care unit. Patient was placed on BiPAP. Patient also started on IV Zosyn for concerns of aspiration pn eum[place] patient not following commands at this time recommendations for possible Dobbhoff placement in order to administer oral medications. Neurology services are following MRI has been ordered but cannot be performed while patient is on BiPAP and heparin. Critical care services following infectious disease, cardiology and neurology services following. Current vital signs temp 98.1, heart rate 96, respiratory rate 27, blood pressure 119/69 with a pulse ox of 96% on BiPAP with an FiO2 of 45%. Family at bedside all questions answered On 03/15/2024 patient was seen and examined in the intensive care unit, she is not responsive at this time she is maintained on BiPAP, vital examination rev eals a temperature of 97.9 pulse 89 respiration 24 blood pressure 110/62 pulse ox 99% on FiO2 45% White blood count is 8.7 hemoglobin 13.8 platelet count 249 arterial blood gas revealed a pH of 7.24 pCO2 95% PaO2 96%, BUN 43 creatinine 0.69. Patient is followed by neurology, infectious disease, cardiology and pulmonary critical care, she remains on IV heparin. CT scan of the brain, was repeated yesterday and reveals multiple subacute infarcts no acute bleed or mass effect, chest x-ray done this morning reveals diffuse interstitial infiltrates. Prognosis is guarded. On 03/16/2024 patient remains in the intensive care unit ABGs continued to decline despite BiPAP. Plans for intubation today per critical care.. Family at bedside. Plan discussed with family and nursing staff. Patient remains on IV Zosyn and IV Cardizem. Prognosis remains guarded. Neurology, infectious disease, cardiology and critical care services are all following. On 03/17/2024 patient was seen and examined in the intensive care unit, she is intubated sedated maintained on mechanical ventilation, assist control rate of 20 FiO2 40% with a PEEP of 5, she is maintained on IV antibiotic Zosyn and IV Solu-Medrol 60 mg every 6 hours. White blood count is 7.7 hemoglobin 13.5 platelet count 169 BUN 40 creatinine 0.83, patient is still maintained on IV heparin. Will continue to follow closely On 03/18/2024 patient remains in the intensive care unit intubated and sedated on mechanical ventilation with an FiO2 of 40%. Patient remains on IV antibiotics Zosyn. Patient remains on IV heparin drip. WBC 8.7, hemoglobin 13.9 creatinine 0.61 bun 33 multiple consults following On 03/19/2024 patient remains in the intensive care unit. Sedation has been stopped per critical care will assess mentation. Current vital signs temp 98.2, heart rate 75, respiratory rate 20, blood pressure 117/66 with pulse ox of 96% on mechanical ventilation with an FiO2 of 35%. White blood cell 7.0 hemoglobin 11.0 creatinine 0.51 bun 27 potassium low at 3.1 this to be replaced per protocol. Multiple consults following On 03/20/2024 patient remains in the intensive care unit. On mechanical ventilation. Sedation remains off. Chest x-ray completed showing COPD with slight worsening in the diffuse interstitial and patchy opacitiesThat has been increasing over the past few days 4. History of coronary artery disease. Current vital signs temp 98.2, heart rate 80, respiratory rate 19, blood pressure 121/68 with a pulse ox of 95% on mechanical ventilation with an FiO2 of 35% On 03/21/2024 patient remains in the intensive care unit today patient is awake following commands on mechanical ventilation sedation remains off. Per critical care will attempt extubation today. Patient had follow-up CT yesterday per neurology services anticipate patient will need MRI once extubated and stable. Current vital signs temp 98.9, heart rate 77, respiratory rate 19, blood pressure 100/57 on mechanical ventilation at FiO2 of 35% On 03/22/2024 patient was seen and examined in the ICU, she is alert and oriented x 3 in no apparent distress, she is off the ventilator and is maintained on oxygen 4 L via nasal cannula, she is responsive and answering questions by yes or no, there is no fever or chills no headache or dizziness no chest pain no shortness of breath no cough no nausea or vomiting no abdominal pain no diarrhea and no urinary symptoms. Patient had a recent stroke, repeat swallow evaluation is scheduled for Sunday. On 03/23/2024 patient is alert and oriented x 3 patient has been extubated. Patient remains in the ICU. MRI has been ordered. Current vital signs temp 98.2, heart rate 68, respiratory rate 21, blood pressure 109/61 with a pulse ox of 121/43. Pulse ox 98% on 3 L. At this time patient denies chest pain or shortness of breath. Patient denies nausea vomiting or diarrhea. Patient denies any urinary burning or frequency. On 03/24/2024 patient was seen and examined on the telemetry floor she is alert and oriented in no apparent distress, she is answering few questions by yes or no, there is no fever or chills no headache or dizziness no chest pain no shortness of breath no cough no nausea or vomiting no abdominal pain no diarrhea and no urinary symptoms. Plan is to proceed with speech therapy consult for swallowing evaluation, also to proceed with MRI of the brain, physical therapy and Occupational Therapy are consulted. Will follow closely. On 03/25/2024 patient's alert remains confused. MRI of the brain has been ordered per neurology patient denies chest pain or shortness of breath. Patient denies nausea vomiting or diarrhea. Patient denies any urinary burning or frequency. On 03/26/2024 patient was seen and examined on the medical floor she is more alert and responsive in no apparent distress there is no fever or chills no headache or dizziness no chest pain no shortness of breath no cough no nausea or vomiting no abdominal pain no diarrhea and no urinary symptoms, patient is being evaluated for possible transfer to inpatient rehab. On 03/27/2024 patient was seen and examined on the telemetry floor she is alert and oriented in no apparent distress there is no fever or chills no headache or dizziness, no chest pain no shortness of breath no cough no nausea or vomiting no abdominal pain no diarrhea no urinary symptoms, input from neurology and inpatient rehab reviewed, will continue to follow closely. On 03/28/2024 patient is alert and resting comfortably in bed. Awaiting insurance authorization for discharge to [facility]. Patient denies chest pain or shortness of breath. Patient denies nausea vomiting or diarrhea. Patient denies any urinary burning or frequency. Antibiotics have been DC'd we will continue to monitor off antibiotics patient is on IV steroids. On 03/29/2024 patient was seen and examined on the medical floor she is alert responsive in no apparent distress there is no fever or chills no headache or dizziness no chest pain no shortness of breath no cough no nausea or vomiting no abdominal pain no diarrhea and no urinary symptoms. Patient is improving gradually possible transfer to [facility] for rehab on Sunday. On 03/30/2024 patient is resting comfortably in bed anticipate discharge to rehab tomorrow. Patient remains on Diflucan. Patient denies chest pain or shortness of breath. Patient denies nausea vomiting or diarrhea. Patient denies any urinary burning or frequency Objective - Vital Signs Vital signs: Vital Signs Temp 98.2 F 03/29/24 20:00 Pulse 79 03/30/24 04:00 Resp 16 03/30/24 04:00 BP 107/69 03/30/24 04:00 Pulse Ox 94 L 03/30/24 04:00 FiO2 40 03/22/24 08:00 Intake & Output 03/29/24 03/30/24 03/30/24 18:59 06:59 18:59 Intake Total 300 Output Total 900 Balance -600 Intake: IV 120 Sodium Chloride 0.9% 1, 120 000 ml @ 10 mls/hr IV . Q24H [facility] Rx#:[id number] Oral 180 Output: Urine 900 Other: Voiding Method Indwelling Catheter Indwelling Catheter # Bowel Movements 1 ABP, PAP, CO, CI - Last Documented Arterial Blood Pressure 132/50 - Exam Head normocephalic Neck supple Lungs clear to auscultation bilaterally no wheezing or crackles Heart regular rate and rhythm S1-S2, no rub or gallop Abdomen is soft nontender nondistended positive bowel sounds no hepatosplenomegaly Extremities no edema Neuro patient is unresponsive - Labs CBC & Chem 7: 03/30/24 06:29 03/30/24 06:29 Labs: Abnormal Lab Results - Last 24 Hours (Table) 03/29/24 03/29/24 03/29/24 Range/Units 11:18 16:24 20:00 WBC (3.8-10.6) k/uL RBC (3.80-5.40) m/uL Hct (34.0-46.0) % MCHC (31.0-37.0) g/dL RDW (11.5-15.5) % Neutrophils # (1.3-7.7) k/uL Lymphocytes # (1.0-4.8) k/uL Sodium (137-145) mmol/L Carbon Dioxide (22-30) mmol/L BUN (7-17) mg/dL Creatinine (0.52-1.04) mg/dL Glucose (74-99) mg/dL POC Glucose (mg/dL) 152 H 224 H 230 H (70-110) mg/dL Total Protein (6.3-8.2) g/dL Albumin (3.5-5.0) g/dL 12/15/24 12/15/24 12/15/24 Range/Units 06:29 06:29 06:39 WBC 17.8 H (3.8-10.6) k/uL RBC 5.57 H (3.80-5.40) m/uL Hct 46.8 H (34.0-46.0) % MCHC 30.6 L (31.0-37.0) g/dL RDW 16.4 H (11.5-15.5) % Neutrophils # 16.7 H (1.3-7.7) k/uL Lymphocytes # 0.4 L (1.0-4.8) k/uL Sodium 134 L (137-145) mmol/L Carbon Dioxide 32 H (22-30) mmol/L BUN 26 H (7-17) mg/dL Creatinine 0.51 L (0.52-1.04) mg/dL Glucose 189 H (74-99) mg/dL POC Glucose (mg/dL) 187 H (70-110) mg/dL Total Protein 5.5 L (6.3-8.2) g/dL Albumin 3.1 L (3.5-5.0) g/dL Assessment and Plan Assessment: 1. Slurred speech and altered mental status changes, with evidence of acute i schemic stroke. 2. Acute CHF exacerbation 3. Elevated troponins 4. Ongoing nicotine dependence greater than 1 pack/day 5. History of COPD 6. History of essential hypertension 7. Concerns of aspiration pneumonia patient started on IV Zosyn infectious disease service is consulted 8. Acute on chronic hypoxic and hypercapnic respiratory failure requiring intubation and mechanical ventilation. Patient has been extubated 03/21/2024 Neurology, cardiology and pulmonary services consulted MRI of the brain Has been completed Patient has been transition to oral anticoagulation Repeat labs ordered PT and OT services consulted Discharge planning to [facility] Per case management guardianship is in process
[2024-03-30 11:28] LABS: Glucose,Whole Blood 134 mg/dL (70-110)
--- NOTE | 2024-03-30 14:32 | P.PN ---
Subjective Progress Note Date: 03/30/24 Principal diagnosis: Reason for follow-up is pneumonia Patient is a 73-year-old female with a past medical history significant for COPD hypertension hyperlipidemia patient was brought into the hospital for evaluation of mental status changes and was being worked up for stroke did have worsening of respiratory status concerning for aspiration prompted this consultation. Patient did have worsening of her respiratory status got intubated on 03/16/2024 On today's evaluation that is 03/30/2024, Patient is afebrile patient is currently on 2 L nasal cannula oxygen and is breathing comfortably she seems to be more awake and alert no chest pain or cough no vomiting or diarrhea has been reported. Patient white count slightly down to 17.8 creatinine 0.5 point Objective - Vital Signs Vital signs: Vital Signs Temp 97.7 F 03/30/24 11:43 Pulse 67 03/30/24 11:43 Resp 20 03/30/24 11:43 BP 114/69 03/30/24 11:43 Pulse Ox 94 L 03/30/24 11:43 FiO2 40 03/22/24 08:00 Intake & Output 03/29/24 03/30/24 03/30/24 18:59 06:59 18:59 Intake Total 300 180 Output Total 900 Balance -600 180 Intake: IV 120 Sodium Chloride 0.9% 1, 120 000 ml @ 10 mls/hr IV . Q24H [facility] Rx#:[id number] Oral 180 180 Output: Urine 900 Other: Voiding Method Indwelling Catheter Indwelling Catheter Indwelling Catheter # Bowel Movements 1 ABP, PAP, CO, CI - Last Documented Arterial Blood Pressure 132/50 - Exam GENERAL DESCRIPTION: An elderly female lying in bed in no distress RESPIRATORY SYSTEM: Unlabored breathing , decreased breath sounds at bases HEART: S1 S2 regular rate and rhythm , ABDOMEN: Soft , no tenderness EXTREMITIES: No edema feet - Labs CBC & Chem 7: 03/30/24 06:29 03/30/24 06:29 Labs: Abnormal Lab Results - Last 24 Hours (Table) 03/29/24 03/29/24 03/30/24 Range/Units 16:24 20:00 06:29 WBC 17.8 H (3.8-10.6) k/uL RBC 5.57 H (3.80-5.40) m/uL Hct 46.8 H (34.0-46.0) % MCHC 30.6 L (31.0-37.0) g/dL RDW 16.4 H (11.5-15.5) % Neutrophils # 16.7 H (1.3-7.7) k/uL Lymphocytes # 0.4 L (1.0-4.8) k/uL Sodium (137-145) mmol/L Carbon Dioxide (22-30) mmol/L BUN (7-17) mg/dL Creatinine (0.52-1.04) mg/dL Glucose (74-99) mg/dL POC Glucose (mg/dL) 224 H 230 H (70-110) mg/dL Total Protein (6.3-8.2) g/dL Albumin (3.5-5.0) g/dL 03/30/24 03/30/24 03/30/24 Range/Units 06:29 06:39 11:26 WBC (3.8-10.6) k/uL RBC (3.80-5.40) m/uL Hct (34.0-46.0) % MCHC (31.0-37.0) g/dL RDW (11.5-15.5) % Neutrophils # (1.3-7.7) k/uL Lymphocytes # (1.0-4.8) k/uL Sodium 134 L (137-145) mmol/L Carbon Dioxide 32 H (22-30) mmol/L BUN 26 H (7-17) mg/dL Creatinine 0.51 L (0.52-1.04) mg/dL Glucose 189 H (74-99) mg/dL POC Glucose (mg/dL) 187 H 134 H (70-110) mg/dL Total Protein 5.5 L (6.3-8.2) g/dL Albumin 3.1 L (3.5-5.0) g/dL Assessment and Plan (1) Aspiration pneumonia Current Visit: Yes Status: Acute Code(s): J69.0 - PNEUMONITIS DUE TO INHALATION OF FOOD AND VOMIT SNOMED Code(s): 489828668 (2) Leukocytosis Current Visit: Yes Status: Acute Code(s): D72.829 - ELEVATED WHITE BLOOD CELL COUNT, UNSPECIFIED SNOMED Code(s): 310446128 Plan: 1patient with worsening respiratory status and this patient initially brought into the hospital with slurred speech and being worked up for a CVA with worsening of respiratory status requiring BiPAP and a question of possible aspiration. 2patient did have CT angiogram of the chest shows consolidation concerning for pneumonia possible aspiration repeat CT of the brain concerning for subacute infarct with some progression neurology is following the patient 3patient did have worsening of respiratory status requiring intubation sputum culture has been obtained which are so far negative patient subsequently has been successfully extubated 4-patient is afebrile with a worsening of the white count possibly steroids versus oropharyngeal candidiasis, patient did have normal procalcitonin CRP, chest x-ray with scattered opacities, 5-patient white count is slowly trending down continue with the Diflucan short course Dictation was produced using [employer] dictation software. please excuse any grammatical, word or spelling errors. Time with Patient: Less than 30
[2024-03-30 16:12] LABS: Glucose,Whole Blood 229 mg/dL (70-110)
[2024-03-30 20:20] LABS: Glucose,Whole Blood 221 mg/dL (70-110)
[2024-03-31 00:30] LABS: Glucose,Whole Blood 179 mg/dL (70-110)
[2024-03-31 06:00] LABS: Glucose,Whole Blood 176 mg/dL (70-110)
[2024-03-31 06:18] LABS: Anisocytosis Slight; Basophils % (A) 0 %; Eosinophils % (A) 0 %; HCT 47.5 % (34.0-46.0); HGB 14.2 gm/dL (11.4-16.0); Hypochromasia Marked; Lymphocytes # (A) 0.3 k/uL (1.0-4.8); Lymphocytes % (A) 2 %; MCH 25.1 pg (25.0-35.0); MCHC 29.9 g/dL (31.0-37.0); MCV 83.9 fL (80.0-100.0); Mean Platelet Volume 6.9; Monocytes # (A) 0.5 k/uL (0-1.0); Monocytes % (A) 3 %; Neutrophils # (A) 15.7 k/uL (1.3-7.7); Neutrophils % (A) 95 %; Platelet Count 327 k/uL (150-450); RBC 5.66 m/uL (3.80-5.40); RDW 16.1 % (11.5-15.5); WBC 16.6 k/uL (3.8-10.6)
[2024-03-31 06:40] LABS: ALT 26 U/L (4-34); African American GFR (CKD) >90 (>60 ml/min/1.73 sqM); Anion Gap 2 mmol/L; Blood Urea Nitrogen 25 mg/dL (7-17); Calcium 8.4 mg/dL (8.4-10.2); Carbon Dioxide 30 mmol/L (22-30); Chloride 101 mmol/L (98-107); Glucose 182 mg/dL (74-99); Non-African American GFR(CKD) >90 (>60 ml/min/1.73 sqM); Sodium 133 mmol/L (137-145); Total Protein 5.5 g/dL (6.3-8.2)
[2024-03-31 06:42] LABS: AST 22 U/L (14-36); Alkaline Phosphatase 40 U/L (38-126); Potassium 5.2 mmol/L (3.5-5.1)
[2024-03-31] MEDS: amLODIPine 2.5 MG TAB PO SCH (12:31)
--- NOTE | 2024-03-31 12:37 | P.PN ---
Subjective Progress Note Date: 03/31/24 Principal diagnosis: Reason for follow-up is pneumonia Patient is a 73-year-old female with a past medical history significant for COPD hypertension hyperlipidemia patient was brought into the hospital for evaluation of mental status changes and was being worked up for stroke did have worsening of respiratory status concerning for aspiration prompted this consultation. Patient did have worsening of her respiratory status got intubated on 03/16/2024 On today's evaluation that is 03/31/2024, patient has been afebrile, patient is breathing comfortably and is currently on 2 L nasal oxygen, patient denies having any significant cough no chest pain, patient denies nausea vomiting or diarrhea and no abdominal pain. Patient white count slightly down to 16.6, creatinine 0.46 Objective - Vital Signs Vital signs: Vital Signs Temp 97.5 F L 03/31/24 08:00 Pulse 83 03/31/24 12:00 Resp 16 03/31/24 12:00 BP 122/78 03/31/24 12:00 Pulse Ox 98 03/31/24 12:00 FiO2 40 03/22/24 08:00 Intake & Output 03/30/24 03/31/24 03/31/24 18:59 06:59 18:59 Intake Total 480 Output Total 1500 1000 Balance -1020 -1000 Weight 60.5 kg Intake: IV 120 Sodium Chloride 0.9% 1, 120 000 ml @ 10 mls/hr IV . Q24H [facility] Rx#:[id number] Oral 360 Output: Urine 1500 1000 Other: Voiding Method Indwelling Catheter Indwelling Catheter Indwelling Catheter # Bowel Movements 1 ABP, PAP, CO, CI - Last Documented Arterial Blood Pressure 132/50 - Exam GENERAL DESCRIPTION: An elderly female lying in bed in no distress RESPIRATORY SYSTEM: Unlabored breathing , decreased breath sounds at bases HEART: S1 S2 regular rate and rhythm , ABDOMEN: Soft , no tenderness EXTREMITIES: No edema feet - Labs CBC & Chem 7: 03/31/24 05:34 03/31/24 05:34 Labs: Abnormal Lab Results - Last 24 Hours (Table) 03/30/24 03/30/24 03/31/24 Range/Units 16:09 20:17 00:28 WBC (3.8-10.6) k/uL RBC (3.80-5.40) m/uL Hct (34.0-46.0) % MCHC (31.0-37.0) g/dL RDW (11.5-15.5) % Neutrophils # (1.3-7.7) k/uL Lymphocytes # (1.0-4.8) k/uL Sodium (137-145) mmol/L Potassium (3.5-5.1) mmol/L BUN (7-17) mg/dL Creatinine (0.52-1.04) mg/dL Glucose (74-99) mg/dL POC Glucose (mg/dL) 229 H 221 H 179 H (70-110) mg/dL Total Protein (6.3-8.2) g/dL Albumin (3.5-5.0) g/dL 03/31/24 03/31/24 03/31/24 Range/Units 05:34 05:34 05:56 WBC 16.6 H (3.8-10.6) k/uL RBC 5.66 H (3.80-5.40) m/uL Hct 47.5 H (34.0-46.0) % MCHC 29.9 L (31.0-37.0) g/dL RDW 16.1 H (11.5-15.5) % Neutrophils # 15.7 H (1.3-7.7) k/uL Lymphocytes # 0.3 L (1.0-4.8) k/uL Sodium 133 L (137-145) mmol/L Potassium 5.2 H (3.5-5.1) mmol/L BUN 25 H (7-17) mg/dL Creatinine 0.46 L (0.52-1.04) mg/dL Glucose 182 H (74-99) mg/dL POC Glucose (mg/dL) 176 H (70-110) mg/dL Total Protein 5.5 L (6.3-8.2) g/dL Albumin 3.0 L (3.5-5.0) g/dL Assessment and Plan (1) Leukocytosis Current Visit: Yes Status: Acute Code(s): D72.829 - ELEVATED WHITE BLOOD CELL COUNT, UNSPECIFIED SNOMED Code(s): 729525516 (2) Oropharyngeal candidiasis Current Visit: Yes Status: Acute Code(s): B37.0 - CANDIDAL STOMATITIS SNOMED Code(s): 13015590 Plan: 1patient with worsening respiratory status and this patient initially brought into the hospital with slurred speech and being worked up for a CVA with worsening of respiratory status requiring BiPAP and a question of possible aspiration. 2patient did have CT angiogram of the chest shows consolidation concerning for pneumonia possible aspiration repeat CT of the brain concerning for subacute infarct with some progression neurology is following the patient 3patient did have worsening of respiratory status requiring intubation sputum culture has been obtained which are so far negative patient subsequently has been successfully extubated 4-patient is afebrile with a worsening of the white count possibly steroids versus oropharyngeal candidiasis, patient did have normal procalcitonin CRP, chest x-ray with scattered opacities, patient has been started on Diflucan white count is slowly trending down and will be monitored closely Dictation was produced using [employer] dictation software. please excuse any grammatical, word or spelling errors. Time with Patient: Less than 30
[2024-03-31 13:30] VITALS: BMI 20.9
--- NOTE | 2024-03-31 14:17 | P.PN ---
Subjective Progress Note Date: 03/31/24 This is a 73-year-old female patient, a chronic smoker smokes around 1.5 packs of cigarettes on a daily basis, known to have COPD, nevertheless, does not utilize any form of respiratory medications or inhalers on outpatient basis. Denies having any home O2. The patient came into the hospital because of slurred speech and she was not following commands and she was altered. The patient had no fever. No headaches. No neck stiffness. CAT scan of the head showed a right parietal lobe acute/subacute infarcts. Neurology was involved in her case and the patient was given a CTA of the brain that showed no intracranial vascular abnormalities. During the course of her hospitalization, the patient was intubated and placed on mechanical ventilator for COPD exacerbation. Ultimately, the patient was extubated on 03/21/2024. On 03/31/2024, the patient is being seen for a follow-up. The patient is awake. She continues to have expressive aphasia and ongoing swallow dysfunction and the patient is on a pured diet. The patient is status post acute on chronic hypoxic respiratory failure requiring intubation mechanical ventilation and the patient was ultimately extubated on 03/21/2024 and she remains on oxygen at 2 L. No significant respiratory distress at rest. The patient is calm and comfor table. The patient is currently on DuoNeb nebulized treatments [id number]. The patient remains on IV Solu-Medrol 40 mg every 12 hours. She is on metoprolol 25 mg twice a day and anticoagulation with Eliquis 5 mg p.o. twice a day. She is also on Lipitor 40 mg p.o. daily. Cozaar 50 mg p.o. daily for blood pressure control. IV fluids are currently at KVO. The white cell count at 16.6 with a hemoglobin 14.2 and a platelet count of 327. BUN 25 with a creatinine of 0.4 and a sodium levels at 133 with a potassium level of 5.2. Objective - Vital Signs Vital signs: Vital Signs Temp 97.5 F L 03/31/24 08:00 Pulse 81 03/31/24 08:00 Resp 18 03/31/24 08:00 BP 122/68 03/31/24 08:00 Pulse Ox 92 L 03/31/24 08:00 FiO2 40 03/22/24 08:00 Intake & Output 1203/31/24 03/31/24 18:59 06:59 18:59 Intake Total 480 Output Total 1500 1000 Balance -1020 -1000 Weight 60.5 kg Intake: IV 120 Sodium Chloride 0.9% 1, 120 000 ml @ 10 mls/hr IV . Q24H [facility] Rx#:[id number] Oral 360 Output: Urine 1500 1000 Other: Voiding Method Indwelling Catheter Indwelling Catheter # Bowel Movements 1 ABP, PAP, CO, CI - Last Documented Arterial Blood Pressure 132/50 - Exam No acute distress, oriented 3. No respiratory distress. The patient continues on 2 L. HEENT examination is grossly unremarkable. Mucous membranes are moist. No oral lesions. Neck supple. Full range of motion. No adenopathy thyromegaly or neck vein distention. Cardiovascular examination reveals regular rhythm rate. S1-S2 normal. No S3 or S4. No discernible murmur noted. Lungs reveal clear breath sounds. Breath sounds are equal bilaterally. No adventitious lung sounds including wheezes rhonchi or crackles. Abdomen soft bowel sounds are heard. No masses or tenderness. Extremities are intact. No cyanosis clubbing or edema. No movement right upper extremity. Skin is without rash or lesion. Neurologic examination feels decreased movement right upper extremity. Speech is garbled. She remains profound in the week and she is also lethargic. - Labs CBC & Chem 7: 03/31/24 05:34 03/31/24 05:34 Labs: Abnormal Lab Results - Last 24 Hours (Table) 03/30/24 03/30/24 03/30/24 Range/Units 11:26 16:09 20:17 WBC (3.8-10.6) k/uL RBC (3.80-5.40) m/uL Hct (34.0-46.0) % MCHC (31.0-37.0) g/dL RDW (11.5-15.5) % Neutrophils # (1.3-7.7) k/uL Lymphocytes # (1.0-4.8) k/uL Sodium (137-145) mmol/L Potassium (3.5-5.1) mmol/L BUN (7-17) mg/dL Creatinine (0.52-1.04) mg/dL Glucose (74-99) mg/dL POC Glucose (mg/dL) 134 H 229 H 221 H (70-110) mg/dL Total Protein (6.3-8.2) g/dL Albumin (3.5-5.0) g/dL 03/31/24 03/31/24 03/31/24 Range/Units 00:28 05:34 05:34 WBC 16.6 H (3.8-10.6) k/uL RBC 5.66 H (3.80-5.40) m/uL Hct 47.5 H (34.0-46.0) % MCHC 29.9 L (31.0-37.0) g/dL RDW 16.1 H (11.5-15.5) % Neutrophils # 15.7 H (1.3-7.7) k/uL Lymphocytes # 0.3 L (1.0-4.8) k/uL Sodium 133 L (137-145) mmol/L Potassium 5.2 H (3.5-5.1) mmol/L BUN 25 H (7-17) mg/dL Creatinine 0.46 L (0.52-1.04) mg/dL Glucose 182 H (74-99) mg/dL POC Glucose (mg/dL) 179 H (70-110) mg/dL Total Protein 5.5 L (6.3-8.2) g/dL Albumin 3.0 L (3.5-5.0) g/dL 03/31/24 Range/Units 05:56 WBC (3.8-10.6) k/uL RBC (3.80-5.40) m/uL Hct (34.0-46.0) % MCHC (31.0-37.0) g/dL RDW (11.5-15.5) % Neutrophils # (1.3-7.7) k/uL Lymphocytes # (1.0-4.8) k/uL Sodium (137-145) mmol/L Potassium (3.5-5.1) mmol/L BUN (7-17) mg/dL Creatinine (0.52-1.04) mg/dL Glucose (74-99) mg/dL POC Glucose (mg/dL) 176 H (70-110) mg/dL Total Protein (6.3-8.2) g/dL Albumin (3.5-5.0) g/dL Assessment and Plan Plan: 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 Likely an embolic phenomena as the patient has established paroxysmal atrial fibrillation and the patient is currently on anticoagulation with Eliquis. MRI of the brain showed acute ischemic type changes in the left watershed white matter and left frontoparietal lobes along with chronic appearing perivascular white matter changes. Expressive aphasia Swallow dysfunction the patient is tolerating pured diet Acute on chronic hypoxemic and hypercapnic respiratory failure, S/P intubation and mechanical ventilation with successful extubation on March 21, 2024. The patient is currently on 2 L of oxygen by nasal cannula COPD Paroxysmal atrial fibrillation. Chronic hypoxemic and hypercapnic respiratory failure. Tobacco dependence syndrome. Severe pulmonary hypertension, likely group 3 pulmonary hypertension History of hypertension. History of hyperlipidemia. Plan: Keep the patient on oxygen 2 L/min nasal cannula Incentive spirometer DuoNeb nebulized treatments [id number] Continue IV Solu-Medrol Continue metoprolol Continue anticoagulation with Eliquis Patient is on aspirin Patient is on statins Will continue to follow. Aggressive physical therapy. DNR/DNI CODE STATUS
--- NOTE | 2024-03-31 17:31 | P.PN ---
Subjective Progress Note Date: 03/31/24 Mirtha Ponce is a 73-year-old female patient who initially presented to her PCP with complaints of slurring of speech patient was directed to come to ER for further evaluation. At this time patient is in bed sleeping not following commands or answering questions. Family at bedside history obtained through them and medical records. According to family patient was found to be having slurred speech patient did not want to come to ER at that time so was taken to PCP. Per family patient is a heavy smoker but denies any alcohol or drug use. Denies any recent illness. Additional medical history includes COPD, hypertension. Head CT completed showing right parietal lobe acute/subacute CVA. EKG completed showing sinus rhythm. Chest x-ray completed showing cardiomegaly with pulmonary vascular congestion correlate with serum BNP COPD changes. Lab work revealing troponin 0.379, 0.429 and 0.436, white blood cell 5.7, hemoglobin 15.4 creatinine 0.56 bun 14. At this time neurology services have been consulted MRI of the brain has been ordered CTA of the carotids ordered. Will order 2D echo and consult cardiology services. Due to patient's increasing altered mental status changes and concerns for respiratory status we will consult pulmonary services. Patient's BNP also elevated at 6490 will give 1 dose of IV Lasix. Current vital signs temp 97.9, heart rate 96, respiratory rate 18, blood pressure 100/59 with a pulse ox of 95% on nonrebreather. On 03/13/2024 patient was seen and examined on the medical floor she is alert and oriented x 3 in no apparent distress, she has a low-grade fever of 99.4 pulse 108 respiration 22 blood pressure 123/61 pulse ox 91% on 6 L nasal cannula, she has cough, with minimal sputum production she denies any chest pain or shortness of breath no nausea or vomiting no abdominal pain no diarrhea and no urinary symptoms. At this time will keep patient n.p.o. for possible aspiration, will start IV Zosyn and repeat chest x-ray, infectious disease con sultation was added, will continue with IV heparin due to elevated troponin levels, awaiting cardiology input. Neurology consult reviewed. On 03/14/2024 patient remains lethargic in the intensive care unit. Patient was placed on BiPAP. Patient also started on IV Zosyn for concerns of aspiration pneumonia patient not following commands at this time recommendations for possible Dobbhoff placement in order to administer oral medications. Neurology services are following MRI has been ordered but cannot be performed while patient is on BiPAP and heparin. Critical care services following infectious disease, cardiology and neurology services following. Current vital signs temp 98.1, heart rate 96, respiratory rate 27, blood pressure 119/69 with a pulse ox of 96% on BiPAP with an FiO2 of 45%. Family at bedside all questions answered On 03/15/2024 patient was seen and examined in the intensive care unit, she is not responsive at this time she is maintained on BiPAP, vital examination r eveals a temperature of 97.9 pulse 89 respiration 24 blood pressure 110/62 pulse ox 99% on FiO2 45% White blood count is 8.7 hemoglobin 13.8 platelet count 249 arterial blood gas revealed a pH of 7.24 pCO2 95% PaO2 96%, BUN 43 creatinine 0.69. Patient is followed by neurology, infectious disease, cardiology and pulmonary critical care, she remains on IV heparin. CT scan of the brain, was repeated yesterday and reveals multiple subacute infarcts no acute bleed or mass effect, chest x-r ay done this morning reveals diffuse interstitial infiltrates. Prognosis is guarded. On 03/16/2024 patient remains in the intensive care unit ABGs continued to decline despite BiPAP. Plans for intubation today per critical care.. Family at bedside. Plan discussed with family and nursing staff. Patient remains on IV Zosyn and IV Cardizem. Prognosis remains guarded. Neurology, infectious disease, cardiology and critical care services are all following. On 03/17/2024 patient was seen and examined in the intensive care unit, she is intubated sedated maintained on mechanical ventilation, assist control rate of 20 FiO2 40% with a PEEP of 5, she is maintained on IV antibiotic Zosyn and IV Solu-Medrol 60 mg every 6 hours. White blood count is 7.7 hemoglobin 13.5 platelet count 169 BUN 40 creatinine 0.83, patient is still maintained on IV heparin. Will continue to follow closely On 03/18/2024 patient remains in the intensive care unit intubated and sedated on mechanical ventilation with an FiO2 of 40%. Patient remains on IV antibiotics Zosyn. Patient remains on IV heparin drip. WBC 8.7, hemoglobin 13.9 creatinine 0.61 bun 33 multiple consults following On 03/19/2024 patient remains in the intensive care unit. Sedation has been stopped per critical care will assess mentation. Current vital signs temp 98.2, heart rate 75, respiratory rate 20, blood pressure 117/66 with pulse ox of 96% on mechanical ventilation with an FiO2 of 35%. White blood cell 7.0 hemoglobin 11.0 creatinine 0.51 bun 27 potassium low at 3.1 this to be replaced per protocol. Multiple consults following On 03/20/2024 patient remains in the intensive care unit. On mechanical ventilation. Sedation remains off. Chest x-ray completed showing COPD with slight worsening in the diffuse interstitial and patchy opacitiesThat has been increasing over the past few days 4. History of coronary artery disease. Current vital signs temp 98.2, heart rate 80, respiratory rate 19, blood pressure 121/68 with a pulse ox of 95% on mechanical ventilation with an FiO2 of 35% On 03/21/2024 patient remains in the intensive care unit today patient is awake following commands on mechanical ventilation sedation remains off. Per critical care will attempt extubation today. Patient had follow-up CT yesterday per neurology services anticipate patient will need MRI once extubated and stable. Current vital signs temp 98.9, heart rate 77, respiratory rate 19, blood pressure 100/57 on mechanical ventilation at FiO2 of 35% On 03/22/2024 patient was seen and examined in the ICU, she is alert and oriented x 3 in no apparent distress, she is off the ventilator and is maintained on oxygen 4 L via nasal cannula, she is responsive and answering questions by yes or no, there is no fever or chills no headache or dizziness no chest pain no shortness of breath no cough no nausea or vomiting no abdominal pain no diarrhea and no urinary symptoms. Patient had a recent stroke, repeat swallow evaluation is scheduled for Sunday. On 03/23/2024 patient is alert and oriented x 3 patient has been extubated. Patient remains in the ICU. MRI has been ordered. Current vital signs temp 98.2, heart rate 68, respiratory rate 21, blood pressure 109/61 with a pulse ox of 121/43. Pulse ox 98% on 3 L. At this time patient denies chest pain or shortness of breath. Patient denies nausea vomiting or diarrhea. Patient denies any urinary burning or frequency. On 03/24/2024 patient was seen and examined on the telemetry floor she is alert and oriented in no apparent distress, she is answering few questions by yes or no, there is no fever or chills no headache or dizziness no chest pain no shortness of breath no cough no nausea or vomiting no abdominal pain no diarrhea and no urinary symptoms. Plan is to proceed with speech therapy consult for swallowing evaluation, also to proceed with MRI of the brain, physical therapy and Occupational Therapy are consulted. Will follow closely. On 03/25/2024 patient's alert remains confused. MRI of the brain has been ordered per neurology patient denies chest pain or shortness of breath. Patient denies nausea vomiting or diarrhea. Patient denies any urinary burning or frequency. On 03/26/2024 patient was seen and examined on the medical floor she is more alert and responsive in no apparent distress there is no fever or chills no headache or dizziness no chest pain no shortness of breath no cough no nausea or vomiting no abdominal pain no diarrhea and no urinary symptoms, patient is being evaluated for possible transfer to inpatient rehab. On 03/27/2024 patient was seen and examined on the telemetry floor she is alert and oriented in no apparent distress there is no fever or chills no headache or dizziness, no chest pain no shortness of breath no cough no nausea or vomiting no abdominal pain no diarrhea no urinary symptoms, input from neurology and inpatient rehab reviewed, will continue to follow closely. On 03/28/2024 patient is alert and resting comfortably in bed. Awaiting insurance authorization for discharge to [facility]. Patient denies chest pain or shortness of breath. Patient denies nausea vomiting or diarrhea. Patient denies any urinary burning or frequency. Antibiotics have been DC'd we will continue to monitor off antibiotics patient is on IV steroids. On 03/29/2024 patient was seen and examined on the medical floor she is alert responsive in no apparent distress there is no fever or chills no headache or dizziness no chest pain no shortness of breath no cough no nausea or vomiting no abdominal pain no diarrhea and no urinary symptoms. Patient is improving gradually possible transfer to senior living for rehab on Sunday. On 03/30/2024 patient is resting comfortably in bed anticipate discharge to rehab tomorrow. Patient remains on Diflucan. Patient denies chest pain or shortness of breath. Patient denies nausea vomiting or diarrhea. Patient denies any urinary burning or frequenc On 03/31/2024 patient was seen and examined on the medical floor she is alert r esponsive in no apparent distress still having difficulty with her speech, otherwise she denies any complaints there is no fever or chills no headache or dizziness no chest pain no shortness of breath no cough no nausea or vomiting no abdominal pain no diarrhea and no urinary symptoms. Objective - Vital Signs Vital signs: Vital Signs Temp 97.5 F L 03/31/24 08:00 Pulse 81 03/31/24 08:00 Resp 18 03/31/24 08:00 BP 122/68 03/31/24 08:00 Pulse Ox 92 L 03/31/24 08:00 FiO2 40 03/22/24 08:00 Intake & Output 03/30/24 03/31/24 03/31/24 18:59 06:59 18:59 Intake Total 480 Output Total 1500 1000 Balance -1020 -1000 Weight 60.5 kg Intake: IV 120 Sodium Chloride 0.9% 1, 120 000 ml @ 10 mls/hr IV . Q24H [facility] Rx#:[id number] Oral 360 Output: Urine 1500 1000 Other: Voiding Method Indwelling Catheter Indwelling Catheter Indwelling Catheter # Bowel Movements 1 ABP, PAP, CO, CI - Last Documented Arterial Blood Pressure 132/50 - Exam Head normocephalic Neck supple Lungs clear to auscultation bilaterally no wheezing or crackles Heart regular rate and rhythm S1-S2, no rub or gallop Abdomen is soft nontender nondistended positive bowel sounds no hepatosplenomegaly Extremities no edema Neuro patient is unresponsive - Labs CBC & Chem 7: 03/31/24 05:34 03/31/24 05:34 Labs: Abnormal Lab Results - Last 24 Hours (Table) 03/30/24 03/30/24 03/31/24 Range/Units 16:09 20:17 00:28 WBC (3.8-10.6) k/uL RBC (3.80-5.40) m/uL Hct (34.0-46.0) % MCHC (31.0-37.0) g/dL RDW (11.5-15.5) % Neutrophils # (1.3-7.7) k/uL Lymphocytes # (1.0-4.8) k/uL Sodium (137-145) mmol/L Potassium (3.5-5.1) mmol/L BUN (7-17) mg/dL Creatinine (0.52-1.04) mg/dL Glucose (74-99) mg/dL POC Glucose (mg/dL) 229 H 221 H 179 H (70-110) mg/dL Total Protein (6.3-8.2) g/dL Albumin (3.5-5.0) g/dL 03/31/24 03/31/24 03/31/24 Range/Units 05:34 05:34 05:56 WBC 16.6 H (3.8-10.6) k/uL RBC 5.66 H (3.80-5.40) m/uL Hct 47.5 H (34.0-46.0) % MCHC 29.9 L (31.0-37.0) g/dL RDW 16.1 H (11.5-15.5) % Neutrophils # 15.7 H (1.3-7.7) k/uL Lymphocytes # 0.3 L (1.0-4.8) k/uL Sodium 133 L (137-145) mmol/L Potassium 5.2 H (3.5-5.1) mmol/L BUN 25 H (7-17) mg/dL Creatinine 0.46 L (0.52-1.04) mg/dL Glucose 182 H (74-99) mg/dL POC Glucose (mg/dL) 176 H (70-110) mg/dL Total Protein 5.5 L (6.3-8.2) g/dL Albumin 3.0 L (3.5-5.0) g/dL Assessment and Plan Assessment: 1. Slurred speech and altered mental status changes, with evidence of acute ischemic stroke. 2. Acute CHF exacerbation 3. Elevated troponins 4. Ongoing nicotine dependence greater than 1 pack/day 5. History of COPD 6. History of essential hypertension 7. Concerns of aspiration pneumonia patient started on IV Zosyn infectious disease service is consulted 8. Acute on chronic hypoxic and hypercapnic respiratory failure requiring intubation and mechanical ventilation. Patient has been extubated 03/21/2024 Neurology, cardiology and pulmonary services consulted MRI of the brain Has been completed Patient has been transition to oral anticoagulation Repeat labs ordered PT and OT services consulted Discharge planning to [facility] Per case management guardianship is in process
[2024-03-31 18:10] LABS: Glucose,Whole Blood 248 mg/dL (70-110)
[2024-03-31 20:03] LABS: Glucose,Whole Blood 206 mg/dL (70-110)
[2024-03-31] MEDS: INSULIN ASPART (NovoLOG) 100 UNIT/ML VIAL SQ SCH (20:14)
[2024-03-31] MEDS: FAMOTIDINE 20 MG TAB PO SCH (20:16)
[2024-04-01 08:35] LABS: Anisocytosis Slight; Basophils % (A) 0 %; Eosinophils % (A) 0 %; HCT 48.4 % (34.0-46.0); HGB 14.8 gm/dL (11.4-16.0); Hypochromasia Marked; Lymphocytes # (A) 0.4 k/uL (1.0-4.8); Lymphocytes % (A) 2 %; MCH 25.6 pg (25.0-35.0); MCHC 30.5 g/dL (31.0-37.0); MCV 83.9 fL (80.0-100.0); Mean Platelet Volume 7.4; Monocytes # (A) 0.7 k/uL (0-1.0); Monocytes % (A) 4 %; Neutrophils # (A) 17.7 k/uL (1.3-7.7); Neutrophils % (A) 93 %; Platelet Count 331 k/uL (150-450); RBC 5.76 m/uL (3.80-5.40); RDW 16.4 % (11.5-15.5)
[2024-04-01 08:46] LABS: ALT 26 U/L (4-34); AST 20 U/L (14-36); African American GFR (CKD) >90 (>60 ml/min/1.73 sqM); Albumin 3.3 g/dL (3.5-5.0); Alkaline Phosphatase 51 U/L (38-126); Anion Gap 2 mmol/L; Blood Urea Nitrogen 31 mg/dL (7-17); Calcium 8.7 mg/dL (8.4-10.2); Carbon Dioxide 27 mmol/L (22-30); Chloride 101 mmol/L (98-107); Glucose 204 mg/dL (74-99); Non-African American GFR(CKD) >90 (>60 ml/min/1.73 sqM); Potassium 4.9 mmol/L (3.5-5.1); Sodium 130 mmol/L (137-145); Total Bilirubin 1.2 mg/dL (0.2-1.3); Total Protein 5.7 g/dL (6.3-8.2)
--- NOTE | 2024-04-01 09:05 | P.DS ---
Providers Date of admission: 03/11/24 17:25 Expected date of discharge: 04/01/24 Attending physician: Natalia Benedict Consults: 03/11/24 17:23 Consult Physician Routine Consulting Provider: Yosvany Diamond Consult Reason/Comments: Dysarthria. Acute ischemic stroke. Do you want consulting provider notified?: Yes 03/12/24 10:02 Consult Physician Routine Consulting Provider: Renee Lopez Consult Reason/Comments: critical care consult, resp failure Do you want consulting provider notified?: Yes 03/13/24 10:37 Consult Physician Routine Consulting Provider: Oralia Merlos Consult Reason/Comments: Possible aspiration pneumonia Do you want consulting provider notified?: Yes 03/26/24 10:46 Consult Physician Routine Consulting Provider: Edgard Gibson Consult Reason/Comments: IPR consult Do you want consulting provider notified?: Yes Primary care physician: Natalia Benedict [facility] Course: discharge diagnosis 1. Slurred speech and altered mental status changes, with evidence of acute ischemic stroke. 2. Acute CHF exacerbation 3. Elevated troponins 4. Ongoing nicotine dependence greater than 1 pack/day 5. History of COPD 6. History of essential hypertension 7. Concerns of aspiration pneumonia patient started on IV Zosyn infectious disease service is consulted 8. Acute on chronic hypoxic and hypercapnic respiratory failure requiring intubation and mechanical ventilation. Patient has been extubated 03/21/2024 Hospital course Mirtha Ponce is a 73-year-old female patient who initially presented to her PCP with complaints of slurring of speech patient was directed to come to ER for further evaluation. At this time patient is in bed sleeping not following commands or answering questions. Family at bedside history obtained through them and medical records. According to family patient was found to be having slurred speech patient did not want to come to ER at that time so was taken to PCP. Per family patient is a heavy smoker but denies any alcohol or drug use. Denies any recent illness. Additional medical history includes COPD, hypertension. Head CT completed showing right parietal lobe acute/subacute CVA. EKG completed showing sinus rhythm. Chest x-ray completed showing cardiomegaly with pulmonary vascular congestion correlate with serum BNP COPD changes. Lab work revealing troponin 0.379, 0.429 and 0.436, white blood cell 5.7, hemoglobin 15.4 creatinine 0.56 bun 14. At this time neurology services have been consulted MRI of the brain has been ordered CTA of the carotids ordered. Will order 2D echo and consult cardiology services. Due to patient's increasing altered mental status changes and concerns for respiratory status we will consult pulmonary services. Patient's BNP also elevated at 6490 will give 1 dose of IV Lasix. Current vital signs temp 97.9, heart rate 96, respiratory rate 18, blood pressure 100/59 with a pulse ox of 95% on nonrebreather. On 03/13/2024 patient was seen and examined on the medical floor she is alert and oriented x 3 in no apparent distress, she has a low-grade fever of 99.4 pulse 108 respiration 22 blood pressure 123/61 pulse ox 91% on 6 L nasal cannula, she has cough, with minimal sputum production she denies any chest pain or shortness of breath no nausea or vomiting no abdominal pain no diarrhea and no urinary symptoms. At this time will keep patient n.p.o. for possible aspiration, will start IV Zosyn and repeat chest x-ray, infectious disease consultation was added, will continue with IV heparin due to elevated troponin levels, awaiting cardiology input. Neurology consult reviewed. On 03/14/2024 patient remains lethargic in the intensive care unit. Patient was placed on BiPAP. Patient also started on IV Zosyn for concerns of aspiration pneumonia patient not following commands at this time recommendations for possible Dobbhoff placement in order to administer oral medications. Neurology services are following MRI has been ordered but cannot be performed while patient is on BiPAP and heparin. Critical care services following infectious disease, cardiology and neurology services following. Current vital signs temp 98.1, heart rate 96, respiratory rate 27, blood pressure 119/69 with a pulse ox of 96% on BiPAP with an FiO2 of 45%. Family at bedside all questions answered On 03/15/2024 patient was seen and examined in the intensive care unit, she is not responsive at this time she is maintained on BiPAP, vital examination reveals a temperature of 97.9 pulse 89 respiration 24 blood pressure 110/62 pulse ox 99% on FiO2 45% White blood count is 8.7 hemoglobin 13.8 platelet count 249 arterial blood gas revealed a pH of 7.24 pCO2 95% PaO2 96%, BUN 43 creatinine 0.69. Patient is followed by neurology, infectious disease, cardiology and pulmonary critical care, she remains on IV heparin. CT scan of the brain, was repeated yesterday and reveals multiple subacute infarcts no acute bleed or mass effect, chest x- ray done this morning reveals diffuse interstitial infiltrates. Prognosis is guarded. On 03/16/2024 patient remains in the intensive care unit ABGs continued to decline despite BiPAP. Plans for intubation today per critical care.. Family at bedside. Plan discussed with family and nursing staff. Patient remains on IV Zosyn and IV Cardizem. Prognosis remains guarded. Neurology, infectious disease, cardiology and critical care services are all following. On 03/17/2024 patient was seen and examined in the intensive care unit, she is intubated sedated maintained on mechanical ventilation, assist control rate of 20 FiO2 40% with a PEEP of 5, she is maintained on IV antibiotic Zosyn and IV Solu-Medrol 60 mg every 6 hours. White blood count is 7.7 hemoglobin 13.5 platelet count 169 BUN 40 creatinine 0.83, patient is still maintained on IV heparin. Will continue to follow closely On 03/18/2024 patient remains in the intensive care unit intubated and sedated on mechanical ventilation with an FiO2 of 40%. Patient remains on IV antibiotics Zosyn. Patient remains on IV heparin drip. WBC 8.7, hemoglobin 13.9 creatinine 0.61 bun 33 multiple consults following On 03/19/2024 patient remains in the intensive care unit. Sedation has been stopped per critical care will assess mentation. Current vital signs temp 98.2, heart rate 75, respiratory rate 20, blood pressure 117/66 with pulse ox of 96% on mechanical ventilation with an FiO2 of 35%. White blood cell 7.0 hemoglobin 11.0 creatinine 0.51 bun 27 potassium low at 3.1 this to be replaced per protocol. Multiple consults following On 03/20/2024 patient remains in the intensive care unit. On mechanical ventilation. Sedation remains off. Chest x-ray completed showing COPD with slight worsening in the diffuse interstitial and patchy opacitiesThat has been increasing over the past few days 4. History of coronary artery disease. Current vital signs temp 98.2, heart rate 80, respiratory rate 19, blood pressure 121/68 with a pulse ox of 95% on mechanical ventilation with an FiO2 of 35% On 03/21/2024 patient remains in the intensive care unit today patient is awake following commands on mechanical ventilation sedation remains off. Per critical care will attempt extubation today. Patient had follow-up CT yesterday per neurology services anticipate patient will need MRI once extubated and stable. Current vital signs temp 98.9, heart rate 77, respiratory rate 19, blood pressure 100/57 on mechanical ventilation at FiO2 of 35% On 03/22/2024 patient was seen and examined in the ICU, she is alert and oriented x 3 in no apparent distress, she is off the ventilator and is maintained on oxygen 4 L via nasal cannula, she is responsive and answering questions by yes or no, there is no fever or chills no headache or dizziness no chest pain no shortness of breath no cough no nausea or vomiting no abdominal pain no diarrhea and no urinary symptoms. Patient had a recent stroke, repeat swallow evaluation is scheduled for Sunday. On 03/23/2024 patient is alert and oriented x 3 patient has been extubated. Patient remains in the ICU. MRI has been ordered. Current vital signs temp 98.2, heart rate 68, respiratory rate 21, blood pressure 109/61 with a pulse ox of 121/43. Pulse ox 98% on 3 L. At this time patient denies chest pain or shortness of breath. Patient denies nausea vomiting or diarrhea. Patient denies any urinary burning or frequency. On 03/24/2024 patient was seen and examined on the telemetry floor she is alert and oriented in no apparent distress, she is answering few questions by yes or no, there is no fever or chills no headache or dizziness no chest pain no shortness of breath no cough no nausea or vomiting no abdominal pain no diarrhea and no urinary symptoms. Plan is to proceed with speech therapy consult for swallowing evaluation, also to proceed with MRI of the brain, physical therapy and Occupational Therapy are consulted. Will follow closely. On 03/25/2024 patient's alert remains confused. MRI of the brain has been ordered per neurology patient denies chest pain or shortness of breath. Patient denies nausea vomiting or diarrhea. Patient denies any urinary burning or frequency. On 03/26/2024 patient was seen and examined on the medical floor she is more alert and responsive in no apparent distress there is no fever or chills no headache or dizziness no chest pain no shortness of breath no cough no nausea or vomiting no abdominal pain no diarrhea and no urinary symptoms, patient is being evaluated for possible transfer to inpatient rehab. On 03/27/2024 patient was seen and examined on the telemetry floor she is alert and oriented in no apparent distress there is no fever or chills no headache or dizziness, no chest pain no shortness of breath no cough no nausea or vomiting no abdominal pain no diarrhea no urinary symptoms, input from neurology and inpatient rehab reviewed, will continue to follow closely. On 03/28/2024 patient is alert and resting comfortably in bed. Awaiting insurance authorization for discharge to [facility]. Patient denies chest pain or shortness of breath. Patient denies nausea vomiting or diarrhea. Patient denies any urinary burning or frequency. Antibiotics have been DC'd we will continue to monitor off antibiotics patient is on IV steroids. On 03/29/2024 patient was seen and examined on the medical floor she is alert responsive in no apparent distress there is no fever or chills no headache or dizziness no chest pain no shortness of breath no cough no nausea or vomiting no abdominal pain no diarrhea and no urinary symptoms. Patient is improving gradually possible transfer to snf for rehab on Sunday. On 03/30/2024 patient is resting comfortably in bed anticipate discharge to rehab tomorrow. Patient remains on Diflucan. Patient denies chest pain or shortness of breath. Patient denies nausea vomiting or diarrhea. Patient denies any urinary burning or frequenc On 03/31/2024 patient was seen and examined on the medical floor she is alert responsive in no apparent distress still having difficulty with her speech, otherwise she denies any complaints there is no fever or chills no headache or dizziness no chest pain no shortness of breath no cough no nausea or vomiting no abdominal pain no diarrhea and no urinary symptoms on 04/01/2024 patient is alert resting comfortably in bed. Family at bedside patient will be DC'd to [facility] facility today. Patient to continue on aspirin and eliquis per neurology recommendation. Patient Condition at Discharge: Stable Plan - Discharge Summary Discharge Rx Participant: No New Discharge Prescriptions: New Metoprolol Tartrate [Lopressor] 25 mg PO BID tab INSULIN ASPART (NovoLOG) [NovoLOG (formulary)] 0 unit SQ ACHS each Aspirin 325 mg OG-TUBE DAILY tab Amiodarone [Cordarone] 200 mg PO DAILY tab Losartan [Cozaar] 50 mg PO DAILY tab Fluconazole [Diflucan] 100 mg PO DAILY 7 Days #7 tab Apixaban [Eliquis] 5 mg PO BID tab Atorvastatin [Lipitor] 40 mg PO DAILY tab amLODIPine [Norvasc] 2.5 mg PO DAILY@1200 tab Famotidine [Pepcid] 20 mg PO BID tab predniSONE 10 mg PO DIRECTED 12 Days #30 tab Continue Albuterol Inhaler [Ventolin Hfa Inhaler] 2 puff INHALATION RT-Q4H PRN PRN Reason: Shortness Of Breath metFORMIN HCL 500 mg PO BID Discontinued Losartan Potassium 100 mg PO DAILY Pravastatin Sodium [Pravachol] 40 mg PO DAILY Discharge Medication List Albuterol Inhaler [Ventolin Hfa Inhaler] 2 puff INHALATION RT-Q4H PRN 08/28/18 [History] metFORMIN HCL 500 mg PO BID 03/11/24 [History] Amiodarone [Cordarone] 200 mg PO DAILY tab 04/01/24 [Rx] Apixaban [Eliquis] 5 mg PO BID tab 04/01/24 [Rx] Aspirin 325 mg OG-TUBE DAILY tab 04/01/24 [Rx] Atorvastatin [Lipitor] 40 mg PO DAILY tab 04/01/24 [Rx] Famotidine [Pepcid] 20 mg PO BID tab 04/01/24 [Rx] Fluconazole [Diflucan] 100 mg PO DAILY 7 Days #7 tab 04/01/24 [Rx] INSULIN ASPART (NovoLOG) [NovoLOG (formulary)] 0 unit SQ ACHS each 04/01/24 [Rx] Losartan [Cozaar] 50 mg PO DAILY tab 04/01/24 [Rx] Metoprolol Tartrate [Lopressor] 25 mg PO BID tab 04/01/24 [Rx] amLODIPine [Norvasc] 2.5 mg PO DAILY@1200 tab 04/01/24 [Rx] predniSONE 10 mg PO DIRECTED 12 Days #30 tab 04/01/24 [Rx] Follow up Appointment(s)/Referral(s): Natalia Benedict MD [Primary Care Provider] - 1-2 days Activity/Diet/Wound Care/Special Instructions: Diet: Dysphagia Level I: Pureed, Aspiration precautions; No straws; 1:1 supervision; [place] thick liquids Activity as tolerated
[2024-04-01 09:56] VITALS: TEMP 97.4
[2024-04-01 11:37] LABS: Glucose,Whole Blood 157 mg/dL (70-110)
[2024-04-01 12:15] VITALS: BP 114/69; PULSE 79; RESP 16
--- NOTE | 2024-04-01 13:02 | P.PN ---
Subjective Progress Note Date: 04/01/24 Principal diagnosis: Reason for follow-up is pneumonia Patient is a 73-year-old female with a past medical history significant for COPD hypertension hyperlipidemia patient was brought into the hospital for evaluation of mental status changes and was being worked up for stroke did have worsening of respiratory status concerning for aspiration prompted this consultation. Patient did have worsening of her respiratory status got intubated on 03/16/2024 On today's evaluation that is 04/01/2024, Patient is afebrile this morning patient is currently breathing comfortable 2 L nasal cannula oxygen denies any chest pain no cough no vomiting or diarrhea has been reported by the nursing staff. The patient white count is up to 19,000, creatinine 0.49 Objective - Vital Signs Vital signs: Vital Signs Temp 97.4 F L 04/01/24 08:00 Pulse 91 04/01/24 08:00 Resp 18 04/01/24 08:00 BP 108/70 04/01/24 08:00 Pulse Ox 91 L 04/01/24 08:00 FiO2 40 03/22/24 08:00 Intake & Output 03/31/24 04/01/24 04/01/24 18:59 06:59 18:59 Output Total 1300 700 Balance -1300 -700 Weight 60.5 kg 61.5 kg Output: Urine 1300 700 Other: Voiding Method Indwelling Catheter Indwelling Catheter Indwelling Catheter ABP, PAP, CO, CI - Last Documented Arterial Blood Pressure 132/50 - Exam GENERAL DESCRIPTION: An elderly female lying in bed in no distress RESPIRATORY SYSTEM: Unlabored breathing , decreased breath sounds at bases HEART: S1 S2 regular rate and rhythm , ABDOMEN: Soft , no tenderness EXTREMITIES: No edema feet - Labs CBC & Chem 7: 04/01/24 08:16 04/01/24 08:16 Labs: Abnormal Lab Results - Last 24 Hours (Table) 03/31/24 03/31/24 04/01/24 Range/Units 18:09 20:01 08:16 WBC 19.0 H (3.8-10.6) k/uL RBC 5.76 H (3.80-5.40) m/uL Hct 48.4 H (34.0-46.0) % MCHC 30.5 L (31.0-37.0) g/dL RDW 16.4 H (11.5-15.5) % Neutrophils # 17.7 H (1.3-7.7) k/uL Lymphocytes # 0.4 L (1.0-4.8) k/uL Sodium (137-145) mmol/L BUN (7-17) mg/dL Creatinine (0.52-1.04) mg/dL Glucose (74-99) mg/dL POC Glucose (mg/dL) 248 H 206 H (70-110) mg/dL Total Protein (6.3-8.2) g/dL Albumin (3.5-5.0) g/dL 04/01/24 Range/Units 08:16 WBC (3.8-10.6) k/uL RBC (3.80-5.40) m/uL Hct (34.0-46.0) % MCHC (31.0-37.0) g/dL RDW (11.5-15.5) % Neutrophils # (1.3-7.7) k/uL Lymphocytes # (1.0-4.8) k/uL Sodium 130 L (137-145) mmol/L BUN 31 H (7-17) mg/dL Creatinine 0.49 L (0.52-1.04) mg/dL Glucose 204 H (74-99) mg/dL POC Glucose (mg/dL) (70-110) mg/dL Total Protein 5.7 L (6.3-8.2) g/dL Albumin 3.3 L (3.5-5.0) g/dL Assessment and Plan (1) Leukocytosis Current Visit: Yes Status: Acute Code(s): D72.829 - ELEVATED WHITE BLOOD CELL COUNT, UNSPECIFIED SNOMED Code(s): 114039736 (2) Oropharyngeal candidiasis Current Visit: Yes Status: Acute Code(s): B37.0 - CANDIDAL STOMATITIS SNOMED Code(s): 77309110 Plan: 1patient with worsening respiratory status and this patient initially brought into the hospital with slurred speech and being worked up for a CVA with worsening of respiratory status requiring BiPAP and a question of possible aspiration. 2patient did have CT angiogram of the chest shows consolidation concerning for pneumonia possible aspiration repeat CT of the brain concerning for subacute infarct with some progression neurology is following the patient 3patient did have worsening of respiratory status requiring intubation sputum culture has been obtained which are so far negative patient subsequently has been successfully extubated 4-patient is afebrile elevated white count possibly steroid versus oropharyngeal candidiasis as the patient did have normal procalcitonin consider a 7-day course of oral Diflucan on discharge and repeating a CBC in the outpatient setting Dictation was produced using [employer] dictation software. please excuse any grammatical, word or spelling errors. Time with Patient: Less than 30
--- NOTE | 2024-04-01 17:57 | P.PN ---
Subjective Progress Note Date: 04/01/24 This is a 73-year-old female patient, a chronic smoker smokes around 1.5 packs of cigarettes on a daily basis, known to have COPD, nevertheless, does not utilize any form of respiratory medications or inhalers on outpatient basis. Denies having any home O2. The patient came into the hospital because of slurred speech and she was not following commands and she was altered. The patient had no fever. No headaches. No neck stiffness. CAT scan of the head showed a right parietal lobe acute/subacute infarcts. Neurology was involved in her case and the patient was given a CTA of the brain that showed no intracranial vascular abnormalities. During the course of her hospitalization, the patient was intubated and placed on mechanical ventilator for COPD exacerbation. Ultimately, the patient was extubated on 03/21/2024. On 03/31/2024, the patient is being seen for a follow-up. The patient is awake. She continues to have expressive aphasia and ongoing swallow dysfunction and the patient is on a pured diet. The patient is status post acute on chronic hypoxic respiratory failure requiring intubation mechanical ventilation and the patient was ultimately extubated on 03/21/2024 and she remains on oxygen at 2 L. No significant respiratory distress at rest. The patient is calm and comfor table. The patient is currently on DuoNeb nebulized treatments [id number]. The patient remains on IV Solu-Medrol 40 mg every 12 hours. She is on metoprolol 25 mg twice a day and anticoagulation with Eliquis 5 mg p.o. twice a day. She is also on Lipitor 40 mg p.o. daily. Cozaar 50 mg p.o. daily for blood pressure control. IV fluids are currently at KVO. The white cell count at 16.6 with a hemoglobin 14.2 and a platelet count of 327. BUN 25 with a creatinine of 0.4 and a sodium levels at 133 with a potassium level of 5.2. On 04/01/2024, the patient continues to have profound weakness on the right side along with generalized debility, difficulties with speech and expressive aphas ia, poor ability to communicate and ongoing weakness on the left side. No significant shortness of breath at rest. She has a congested cough. No signs of any respiratory distress or failure at this point in time. The patient remains afebrile hemodynamically stable. She is currently on 2 L of oxygen by nasal cannula. Noted the patient had an acute stroke involving left parietal area with secondary right-sided weakness. Her current cardiac rhythm is sinus. She was having paroxysmal atrial fibrillation and the patient is currently on anticoagulation with Eliquis.. The patient remains on DuoNeb nebulized treatments [id number]. I took her off the IV Solu-Medrol and start the patient on a prednisone burst taper meanwhile, the patient is being prepped for discharge to [facility] on a combination of aspirin and Eliquis. She will need to complete the prednisone burst taper on outpatient basis. Objective - Vital Signs Vital signs: Vital Signs Temp 97.4 F L 04/01/24 08:00 Pulse 91 04/01/24 08:00 Resp 18 04/01/24 08:00 BP 108/70 04/01/24 08:00 Pulse Ox 91 L 04/01/24 08:00 FiO2 40 03/22/24 08:00 Intake & Output 03/31/24 04/01/24 04/01/24 18:59 06:59 18:59 Output Total 1300 700 Balance -1300 -700 Weight 60.5 kg 61.5 kg Output: Urine 1300 700 Other: Voiding Method Indwelling Catheter Indwelling Catheter Indwelling Catheter ABP, PAP, CO, CI - Last Documented Arterial Blood Pressure 132/50 - Exam No acute distress, oriented 3. No respiratory distress. The patient continues on 2 L. HEENT examination is grossly unremarkable. Mucous membranes are moist. No oral lesions. Neck supple. Full range of motion. No adenopathy thyromegaly or neck vein distention. Cardiovascular examination reveals regular rhythm rate. S1-S2 normal. No S3 or S4. No discernible murmur noted. Lungs reveal clear breath sounds. Breath sounds are equal bilaterally. No adventitious lung sounds including wheezes rhonchi or crackles. Abdomen soft bowel sounds are heard. No masses or tenderness. Extremities are intact. No cyanosis clubbing or edema. No movement right upper extremity. Skin is without rash or lesion. Neurologic examination feels decreased movement right upper extremity. Speech is garbled. The patient continues to have expressive aphasia she remains profound in the week and she is also lethargic. - Labs CBC & Chem 7: 04/01/24 08:16 04/01/24 08:16 Labs: Abnormal Lab Results - Last 24 Hours (Table) 03/31/24 03/31/24 04/01/24 Range/Units 18:09 20:01 08:16 WBC 19.0 H (3.8-10.6) k/uL RBC 5.76 H (3.80-5.40) m/uL Hct 48.4 H (34.0-46.0) % MCHC 30.5 L (31.0-37.0) g/dL RDW 16.4 H (11.5-15.5) % Neutrophils # 17.7 H (1.3-7.7) k/uL Lymphocytes # 0.4 L (1.0-4.8) k/uL Sodium (137-145) mmol/L BUN (7-17) mg/dL Creatinine (0.52-1.04) mg/dL Glucose (74-99) mg/dL POC Glucose (mg/dL) 248 H 206 H (70-110) mg/dL Total Protein (6.3-8.2) g/dL Albumin (3.5-5.0) g/dL 04/01/24 04/01/24 Range/Units 08:16 11:25 WBC (3.8-10.6) k/uL RBC (3.80-5.40) m/uL Hct (34.0-46.0) % MCHC (31.0-37.0) g/dL RDW (11.5-15.5) % Neutrophils # (1.3-7.7) k/uL Lymphocytes # (1.0-4.8) k/uL Sodium 130 L (137-145) mmol/L BUN 31 H (7-17) mg/dL Creatinine 0.49 L (0.52-1.04) mg/dL Glucose 204 H (74-99) mg/dL POC Glucose (mg/dL) 157 H (70-110) mg/dL Total Protein 5.7 L (6.3-8.2) g/dL Albumin 3.3 L (3.5-5.0) g/dL Assessment and Plan Plan: 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 Likely an embolic phenomena as the patient has established paroxysmal atrial fibrillation and the patient is currently on anticoagulation with Eliquis. MRI of the brain showed acute ischemic type changes in the left watershed white matter and left frontoparietal lobes along with chronic appearing perivascular white matter changes. Expressive aphasia, unchanged Swallow dysfunction the patient is tolerating pured diet Acute on chronic hypoxemic and hypercapnic respiratory failure, S/P intubation and mechanical ventilation with successful extubation on March 21, 2024. The patient is currently on 2 L of oxygen by nasal cannula COPD Paroxysmal atrial fibrillation. The current rhythm is sinus and the patient remains on anticoagulation with Eliquis Chronic hypoxemic and hypercapnic respiratory failure. Tobacco dependence syndrome. Severe pulmonary hypertension, likely group 3 pulmonary hypertension History of hypertension. History of hyperlipidemia. Plan: Keep the patient on oxygen 2 L/min nasal cannula Incentive spirometer DuoNeb nebulized treatments [id number] Prednisone burst taper and outpatient basis Continue metoprolol Continue anticoagulation with Eliquis Patient is on aspirin Patient is on statins Aggressive physical therapy. DNR/DNI CODE STATUS The patient is to be discharged to [facility]
[2024-04-02] MEDS ORDERED: predniSONE 20 MG TAB PO SCH (09:00)
--- NOTE | 2024-04-02 12:56 | CDI ---
Documentation Clarification Form Date: 04/02/2024 12:41:33 PM From: Mi Curtis Phone: Admit Date: 03/11/2024 05:25:00 PM Patient Name: Mirtha Ponce Visit Number: [id number] Discharge Date: 04/01/2024 01:59:00 PM ATTENTION: The Clinical Documentation Specialists (CDI) and [facility] Coding Staff appreciate your assistance in clarifying documentation. Please respond to the clarification below the line at the bottom and electronically sign. The CDI & [facility] Coding staff will review the response and follow-up if needed. Please note: Queries are made part of the Legal Health Record. If you have any questions, please contact the author of this message via ITS. Doctor/Provider: Natalia Benedict Your patient has an abnormal lab value: A1C 7.1. Please clarify if there is an additional diagnosis and/or clinical significance related to this value. History/Risk Factors: 73yo F, CVA w slurred & RT hemiplegia, ACHF, NSTEMI II, HLD, COPD, HTN, Asp PNA, ACH/HRF, intubated, ARDS, encephalomalacia, DNR Clinical indicators: Glucose 03/11 139 03/17 202 03/20 243 03/26 172 04/01 204 Treatment: insulin Is there an additional diagnosis and/or clinical significance related to the above lab result/information? [ xxx] Diabetes Mellitus with hyperglycemia [ ] Diabetes Mellitus with no complications [ ] No additional diagnosis/Not clinically significant [ ] Other, please specify [ ] Unable to determine (Template Last Revised: May 2020) MTDD
--- NOTE | 2024-04-02 13:14 | CDI ---
Documentation Clarification Form Date: 04/02/2024 12:57:58 PM From: Mi Curtis Phone: Admit Date: 03/11/2024 05:25:00 PM Patient Name: Mirtha Ponce Visit Number: [id number] Discharge Date: 04/01/2024 01:59:00 PM ATTENTION: The Clinical Documentation Specialists (CDI) and [facility] Coding Staff appreciate your assistance in clarifying documentation. Please respond to the clarification below the line at the bottom and electronically sign. The CDI & [facility] Coding staff will review the response and follow-up if needed. Please note: Queries are made part of the Legal Health Record. If you have any questions, please contact the author of this message via ITS. Doctor/Provider: Natalia Benedict Encephalopathy is documented per Progress Note 03/14. Additional clarification regarding the type of encephalopathy is requested. History/Risk Factors: 73yo F, CVA w slurred & RT hemiplegia, ACHF, NSTEMI II, HLD, COPD, HTN, Asp PNA, ACH/HRF, intubated, ARDS, encephalomalacia, DNR Clinical Indicators: On BiPAPat apressureof 03/20 with an FiO2 of 45% CT: 03/14 Multiple subacuteinfarctswith mild progression as described above. No acute bleed ormasseffect. 03/15- Nohemorrhagicconversionofsuspectedareas of subacuteinfarct. Pt not responding to any verbalstimulation. She grimaces only to deeppainfulstimulation. Her level of aggressiveness is quite impairedat this point in time. Based on that, repeatCAT scan of the brainwas ordered and the patient was found to have multiple subacuteinfarctwith mild progression without evidence of anybleeding. Treatment: monitored Please clarify the type of encephalopathy, if known: [ ] Metabolic Encephalopathy [ xxx] Anoxic Encephalopathy [ ] Other, please specify [ ] Unable to determine (Template Last Revised: June 2020) REND
--- NOTE | 2024-04-02 13:52 | CDI ---
Documentation Clarification Form Date: 04/02/2024 01:17:00 PM From: Mi Curtis Phone: Admit Date: 03/11/2024 05:25:00 PM Patient Name: Mirtha Ponce Visit Number: [id number] Discharge Date: 04/01/2024 01:59:00 PM ATTENTION: The Clinical Documentation Specialists (CDI) and [facility] Coding Staff appreciate your assistance in clarifying documentation. Please respond to the clarification below the line at the bottom and electronically sign. The CDI & [facility] Coding staff will review the response and follow-up if needed. Please note: Queries are made part of the Legal Health Record. If you have any questions, please contact the author of this message via ITS. Doctor/Provider: Juordan Chopra Your patient has the documented diagnosis of Acute CHFexacerbation per Progress Notes and DC Summary]. Additional information regarding the type and acuity of CHF is requested. History/Risk Factors: 73yo F, CVA w slurred & RT hemiplegia, ACHF, NSTEMI II, HLD, COPD, HTN, Asp PNA, ACH/HRF, intubated, ARDS, encephalomalacia, MR/TR, severe PHTN, NIDDMII, encephalopathy, DNR Clinical Indicators: VS/Pulse OX: 03/11 73-93; place on BiPap then ETT BNP: 6490 Echo: Normal LV size and systolic function. Dilated RVwith severePHTN. [id number]. TraceMR. Chest X Ray: 03/11 Cardiomegalywith pulmonary vascularcongestioncorrelate with serum BNP. 03/13- Cardiomegaly, pulmonary vascularcongestionandbilateral pleural effusions. Correlate with BNP forCHF. Treatment: Continue IV amiodarone for now. Continue IV heparin. Awaiting decision regarding intubation in view of the worsening respiratory status. Continue anticoagulation for now with IV heparin. Prognosis remains guarded In your professional opinion, can you please clarify the acuity and type of CHF if known? [ ] Acute Systolic Heart Failure (reduced EF) [ ] Acute on Chronic Systolic Heart Failure (reduced EF) [ ] Acute Diastolic Heart Failure (preserved EF) [ ] Acute on Chronic Diastolic Heart Failure (preserved EF) [ ] Acute Systolic & Diastolic Heart Failure [ ] Acute on Chronic Heart Failure Systolic & Diastolic Heart Failure [ ] Other, please specify [ xx] Unable to determine (Template Last Revised: May 2020) MTDD
== END 2024-04-01 13:59 | DRG 64 ==
LOC: EC 14:10 → EEVIPCON 17:25 → 3SCARD 17:25 → 2SICU 03-13 12:38 → 3SCARD 03-23 14:14
PROVIDERS: ADMIT Internal Medicine; ATTEND Internal Medicine
PROC: 5A09357 Assistance with Respiratory Ventilation, Less than 24 Consecutive Hours, Continuous Positive Airway Pressure (ICD-10-PCS; 2024-03-13)
PROC: 3E033RZ Introduction of Antiarrhythmic into Peripheral Vein, Percutaneous Approach (ICD-10-PCS; 2024-03-14)
PROC: 0BH18EZ Insertion of Endotracheal Airway into Trachea, Via Natural or Artificial Opening Endoscopic (ICD-10-PCS; principal; 2024-03-16)
PROC: 5A1955Z Respiratory Ventilation, Greater than 96 Consecutive Hours (ICD-10-PCS; 2024-03-16)
PROC: 02HV33Z Insertion of Infusion Device into Superior Vena Cava, Percutaneous Approach (ICD-10-PCS; 2024-03-16)
PROC: 03HY32Z Insertion of Monitoring Device into Upper Artery, Percutaneous Approach (ICD-10-PCS; 2024-03-16)
PROC: 4A133B1 Monitoring of Arterial Pressure, Peripheral, Percutaneous Approach (ICD-10-PCS; 2024-03-16)
PROC: 4A133J1 Monitoring of Arterial Pulse, Peripheral, Percutaneous Approach (ICD-10-PCS; 2024-03-16)
PROC: 3E043XZ Introduction of Vasopressor into Central Vein, Percutaneous Approach (ICD-10-PCS; 2024-03-16)
DX: I63.532 Cerebral infarction due to unspecified occlusion or stenosis of left posterior cerebral artery (principal); I21.A1 Myocardial infarction type 2; J69.0 Pneumonitis due to inhalation of food and vomit; J80 Acute respiratory distress syndrome; E87.29 Other acidosis; B37.0 Candidal stomatitis; G81.91 Hemiplegia, unspecified affecting right dominant side; J44.1 Chronic obstructive pulmonary disease with (acute) exacerbation; G93.1 Anoxic brain damage, not elsewhere classified; Z66 Do not resuscitate; R29.720 NIHSS score 20; I27.23 Pulmonary hypertension due to lung diseases and hypoxia; G93.89 Other specified disorders of brain; I11.0 Hypertensive heart disease with heart failure; I48.0 Paroxysmal atrial fibrillation; E11.65 Type 2 diabetes mellitus with hyperglycemia; I08.1 Rheumatic disorders of both mitral and tricuspid valves; F17.210 Nicotine dependence, cigarettes, uncomplicated; I95.9 Hypotension, unspecified; R31.9 Hematuria, unspecified; J98.4 Other disorders of lung; I25.10 Atherosclerotic heart disease of native coronary artery without angina pectoris; R53.81 Other malaise; E78.5 Hyperlipidemia, unspecified; D22.9 Melanocytic nevi, unspecified; R47.01 Aphasia; R47.1 Dysarthria and anarthria; Z79.84 Long term (current) use of oral hypoglycemic drugs; Z79.899 Other long term (current) drug therapy; Z79.82 Long term (current) use of aspirin; I50.9 Heart failure, unspecified
CPT/HCPCS: 36415; 36600; 70450; 70496; 70498; 70551; 71045; 71046; 71275; 74230; 80048; 80053; 80061; 81001; 82140; 82550; 82805; 83036; 83735; 83880; 84145; 84484; 85025; 85027; 85379; 85610; 85730; 86140; 87070; 87205; 93005; 93306; 93970; 94002; 94003; 94640; 94660; 94760; 96361; 96374; 99291